=== PATIENT | male | born 1950 | race Caucasian/White ===

== ENCOUNTER → 2023-11-02 | Outpatient (CLI) | payer MEDICARE ==
--- NOTE | 2023-11-02 12:09 | FL ---
Exam Date: 11/02/2023 12:05 PM. Modified barium swallow for dysphagia. Consistencies administered: Various consistency of barium. Fluoro time: 2.34 minutes No images were sent to PACS. Please see speech pathology report. DAP: Not reported mGym2 Gycm2
--- NOTE | 2023-11-02 16:27 | XR ---
EXAMINATION TYPE: XR chest 2V DATE OF EXAM: 11/02/2023 COMPARISON: None INDICATION: Cough TECHNIQUE: Frontal and lateral views of the chest are obtained. FINDINGS: The heart size is normal. The pulmonary vasculature is normal. The lungs are clear. IMPRESSION: 1. No acute pulmonary process.
== END | disposition home or self-care (01) ==
LOC: RADFLMAIN 11:07
PROVIDERS: ATTEND Family Medicine
DX: R05.9 Cough, unspecified (principal); R13.10 Dysphagia, unspecified
CPT/HCPCS: 71046; 74230

== ENCOUNTER → 2023-12-08 | Outpatient (CLI) | payer MEDICARE ==
--- NOTE | 2023-12-21 13:39 | CT ---
EXAMINATION TYPE: CT sinus wo con CT DLP: 673.2 mGycm, Automated exposure control for dose reduction was used. DATE OF EXAM: 12/08/2023 4:45 PM COMPARISON: None. CLINICAL INDICATION:Male, 73 years old with history of J32.9 CHRONIC SINUSITIS, UNSPECIFIED; , chroni c sinusitis with headaches TECHNIQUE: Multiple thin axial images were obtained through the paranasal sinuses without the use of IV contrast. Additional coronal and sagittal reformatted images were submitted for evaluation. Contrast used: none Oral contrast used: none FINDINGS: Frontal sinuses: Normally developed with mucosal thickening. Frontal Recess: Opacified Maxillary Sinuses: Normally developed with no mucosal thickening. Maxillary Infundibula([facility]): Opacified left patent right, No Bekah cells identified. Ethmoid sinuses: Normally developed with mucosal thickening of the anterior and posterior ethmoid air cells bilaterally.. Ethmoidal notch: Protected and abutting the lateral lamina. Sphenoid sinuses: Normally developed and aerated. There is sellar sphenoid sinus pneumatization witho ut evidence of dehiscence. No dehiscence of carotid canal. No evidence of optic nerve dehiscence wit hin the sphenoid sinus. No evidence of Onodi cells. Sphenoethmoidal recesses: Opacified. Nasal septum: Deviated leftward mild osseous spurring contacts the left inferior turbinate.. Nasal Turbinates: Mucosal thickening of the turbinates. Mastoid air cells & middle ears: The air cells are clear. The middle ears are grossly unremarkable. Modified Soft tissues & Brain: Partially seen without gross abnormality. Globes are intact. Other: Cribriform plate demonstrates symmetric Keros classification type 2 cribriform plate. No evidence of bony dehiscence of skull base. Lamina papyracea is intact without evidence of remote orbital fracture or orbital prolapse into the e thmoid sinus. IMPRESSION: 1. Moderate to severe paranasal sinus disease. 2. The ostiomeatal unit on the left is opacified and patent on the right. The Frontonasal recesses ar e opacified bilaterally. The sphenoethmoidal recesses are opacified.
== END | disposition home or self-care (01) ==
LOC: RADCTMAIN 15:29
PROVIDERS: ATTEND Family Medicine
DX: J32.9 Chronic sinusitis, unspecified (principal)
CPT/HCPCS: 70486

== ENCOUNTER → 2024-07-13 | Outpatient (CLI) | payer MEDICARE ==
--- NOTE | 2024-07-15 13:02 | PE ---
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 Images are reviewed on the computer in the coronal, axial, and sagittal planes. Reconstructed rotating images are created on independent workstation and reviewed on the computer. A non-contrast CT is performed in conjunction with the PET scan. Glucose level 225 mg/dL CT DLP: 767 mGycm, Automated exposure control for dose reduction was used. COMPARISON: CT outside CTs, PET/CT 02/27/2024, MRI: 03/04/2024 FINDINGS: Mediastinal SUV mean is 3.3. Hepatic parenchyma SUV mean is 3.8. SKULL BASE AND NECK: Suspicious uptake identified examples include: Parapharyngeal mass measuring at least 28 x 22 mm Max SUV 5.2 previously 14.1 more inferior lymph nod e not well appreciated possibly secondary to positive response of therapy or elevated blood glucose l evel. CHEST, MEDIASTINUM, AND HILAR REGION: Left upper lobe pulmonary nodule next SUV 2.6 Previously 9.3 Measuring 8 mm ABDOMEN AND PELVIS: No suspicious radiotracer activity. MUSCULOSKELETAL STRUCTURES: No suspicious radiotracer activity. OTHER CT: Atherosclerosis of the coronary arteries. Scattered colonic diverticula. Right hip arthropl asty appears intact. Mild degeneration changes left hip. Right simple appearing probable renal cyst. PEG tube with tube terminating in the gastric lumen. IMPRESSION: Elevated blood glucose levels limits evaluation and may artificially lower FDG activity values. * Overall findings suggest positive response to therapy however elevated blood glucose level artific ially lowers FDG activity. * Parapharyngeal mass with metabolic has decreased from prior which could be due to elevated blood g lucose levels. Left neck lymph node seen on prior more inferiorly not well appreciated. * Left upper lobe pulmonary nodule now with decreased metabolic activity suggesting positive respons e to therapy. [facility], , 07/15/2024 12:59 PM
== END | disposition home or self-care (01) ==
LOC: RADPETMAIN 12:22
PROVIDERS: ATTEND Internal Medicine Hematology & Oncology
DX: C76.0 Malignant neoplasm of head, face and neck (principal); R73.9 Hyperglycemia, unspecified; R91.1 Solitary pulmonary nodule; I25.10 Atherosclerotic heart disease of native coronary artery without angina pectoris; K57.30 Diverticulosis of large intestine without perforation or abscess without bleeding
CPT/HCPCS: 78815; A9552

== ENCOUNTER 2024-10-12 18:23 | Inpatient (IN) | payer MEDICARE ==
--- NOTE | 2024-10-12 19:22 | ED ---
General Adult HPI - General Chief complaint: Weakness Stated complaint: Irreg Labs Time Seen by Provider: 10/12/24 18:52 Source: patient Mode of arrival: wheelchair Limitations: no limitations - History of Present Illness Initial comments: Patient is a 74-year-old female past medical history of neck cancer status post chemotherapy presenting today for generalized weakness and confusion. Patient's states that he was released from [facility] about a month and a half ago and since then he has become progressively weaker. During hospitali zation he had a PEG tube placed. She states over the last 2 to 3 days he has had progressively worsening weakness and confusion. He patient is usually oriented x 2-3 however is currently oriented x 1. She states that whenever she has some question he will just stare at her and she asked her peers on multiple times to get any type of answer. She denies that he has had any recent falls but though states he is more weak than normal, usually he was able to ambulate without a walker without issue however has become weak and stumbling even with his walker. He has not had any fevers, vomiting, chest pain, shortness of breath, diarrhea, melena, hematochezia or complaints of abdominal pain. He is currently on Eliquis due to history A-fib. - Related Data Home Medications Medication Instructions Recorded Confirmed Apixaban [Eliquis] 5 mg PEG/G-TUBE BID 07/21/24 10/12/24 Atorvastatin [Lipitor] 20 mg PEG/G-TUBE HS 07/21/24 10/12/24 HYDROcodone/APAP 10-325MG [[place] 1 tab PEG/G-TUBE QID PRN 07/21/24 10/12/24 10-325] Esomeprazole Magnesium [NexIUM] 20 mg PEG/G-TUBE BID PRN 10/12/24 10/12/24 Furosemide [Lasix] 40 mg PEG/G-TUBE DAILY PRN 10/12/24 10/12/24 Metoprolol Tartrate [Lopressor] 12.5 mg PEG/G-TUBE BID 10/12/24 10/12/24 Ondansetron Odt [Zofran Odt] 8 mg PEG/G-TUBE Q8H PRN 10/12/24 10/12/24 Potassium Chloride Oral Liquid 40 meq PEG/G-TUBE DAILY 10/12/24 10/12/24 Allergies Allergy/AdvReac Type Severity Reaction Status Date / Time Mushroom Allergy Unknown Verified 10/12/24 19:58 mushroom Allergy Unknown Verified 10/12/24 19:58 Review of Systems ROS Statement: Those systems with pertinent positive or pertinent negative responses have been documented in the HPI. ROS Other: All systems not noted in ROS Statement are negative. Limitations: ROS unobtainable due to patients medical condition Past Medical History Past Medical History: Atrial Fibrillation, Cancer, Diabetes Mellitus, Hyperlipidemia, Myocardial Infarction (GA) Additional Past Medical History / Comment(s): Spine CA C1/C2, CVA, Last Myocardial Infarction Date:: 2010 History of Any Multi-Drug Resistant Organisms: None Reported Past Surgical History: Joint Replacement Additional Past Surgical History / Comment(s): Peg tube, Past Anesthesia/Blood Transfusion Reactions: No Reported Reaction Past Psychological History: No Psychological Hx Reported Smoking Status: Never smoker Past Alcohol Use History: None Reported Past Drug Use History: None Reported General Exam - General Exam Comments Initial Comments: PE: CONSTITUTIONAL: [no apparent distress, ill-appearing, nontoxic] SKIN: [warm, dry, no jaundice, hives or petechiae however generalized pallor] EYES:[ pupils are equally round, extraocular movements intact without nystagmus, clear conjunctiva, mild scleral icterus] HENT: [normocephalic, atraumatic, dry mucus membranes, oropharynx clear without exudates] NECK: , [Full range of motion, normal appearance] PULMONARY: [Scant crackles right lower lung field otherwise clear to auscultation without wheezes, rhonchi, or rales, normal excursion, no accessory muscle use and no stridor] CARDIOVASCULAR:[Regular rate and rhythm, tachycardia No appreciated murmurs, rubs or gallops. Strong radial pulses with intact distal perfusion. No lower extremity edema] GASTROINTESTINAL: [soft, active bowel sounds throughout, non-tender, non- distended, no palpable masses, no rebound or guarding. No hepatosplenomegaly] GENITOURINARY: MUSCULOSKELETAL: [Extremities have no gross deformity, no edema, redness, or swelling. N] NEUROLOGIC: [_a/o x 1, GCS 14, confused mentation and speech. Falls asleep easily during conversation moves all extremities x 4 without motor or sensory deficit] Limitations: no limitations Course Vital Signs 10/12/24 10/12/2425 18:30 19:33 19:46 Temperature 97.7 F Pulse Rate 132 H 112 H 105 H Respiratory 18 24 22 Rate Blood Pressure 100/68 99/70 113/61 O2 Sat by Pulse 92 L 97 97 Oximetry 10/12/24 10/12/24 10/12/24 20:00 21:02 22:02 Temperature Pulse Rate 106 H 109 H 105 H Respiratory 20 18 18 Rate Blood Pressure 119/59 99/62 99/81 O2 Sat by Pulse 94 L Oximetry 10/12/24 10/12/24 10/13/24 22:56 23:44 00:15 Temperature Pulse Rate 105 H 102 H 107 H Respiratory 20 18 18 Rate Blood Pressure 106/84 130/72 118/62 O2 Sat by Pulse 94 L 96 95 Oximetry 10/13/24 10/13/24 10/13/24 03:10 06:41 07:06 Temperature 97.7 F Pulse Rate 95 102 H 101 H Respiratory 18 18 18 Rate Blood Pressure 112/81 118/72 112/56 O2 Sat by Pulse 95 98 95 Oximetry 10/13/24 10/13/24 10/13/24 07:15 08:36 10:40 Temperature 98.2 F 98.3 F Pulse Rate 117 H 94 90 Respiratory 20 18 22 Rate Blood Pressure 136/87 111/78 108/62 O2 Sat by Pulse 95 99 92 L Oximetry 10/13/24 10:56 Temperature Pulse Rate 76 Respiratory Rate Blood Pressure O2 Sat by Pulse 95 Oximetry EKG Findings - EKG Comments: EKG Findings:: atrial fibrillation with RVR, rate 120 bpm QT/QTc within normal limits, borderline right axis deviation, no ST elevations or depressions Medical Decision Making - Medical Decision Making Was pt. sent in by a medical professional or institution (, PA, BIOFUELS MANAGER, urgent care, hospital, or [place] health care facility...) When possible be specific @ -No Did you speak to anyone other than the patient for history (EMS, parent, family, police, friend...)? What history was obtained from this source Spoke with patient's who provided history, stating pt has become progressively weaker and more confused x 2-3 days, recent swallow study and scope with ENT Did you review nursing and triage notes (agree or disagree)? Why? @ -I reviewed nursing and triage notes Were old charts reviewed (outside hosp., previous admission, EMS record, old EKG, old radiological studies, urgent care reports/EKG's, [place] health care facility records)? Report findings @ -Medical records reviewed Differential Diagnosis (chest pain, altered mental status, abdominal pain women, abdominal pain men, vaginal bleeding, weakness, fever, dyspnea, syncope, headache, dizziness, GI bleed, back pain, seizure, CVA, palpatations, mental health, musculoskeletal)? @Differential Weakness: Hypoglycemia, shock, sepsis, hyponatremia, anemia, infection, GA, ETOH, adverse medicine reaction, overdose, stroke, this is not meant to be an all-inclusive list. Differential Altered Mental Status: Hypoglycemia, DKA, hypercapnia, ETOH, overdose, CO poisoning, trauma, myxedema coma, HTN encephalopathy, infection, encephalitis, psychosis, intercranial hemorrhage, hepatic encephalopathy, meningitis, CVA, this is not meant to be an all-inclusive list EKG interpreted by me (3pts min.). @ -As above X-rays interpreted by me (1pt min.). @ Personally reviewed x-ray, notes new infiltrate in the right infrahilar region, radiologist describes nodular infiltrate in the left suprahilar region and right infrahilar region which may reflect underlying developing pneumonia CT interpreted by me (1pt min.). @ I Personally reviewed CT brain I see no evidence of hemorrhage, or well- circumscribed mass, though radiologist does note interval decreased attenuation within the left cerebellar hemisphere, notes that could reflect ischemic insult versus underlying lesion MRI recommended U/S interpreted by me (1pt. min.). @ -None done What testing was considered but not performed or refused? (CT, X-rays, U/S, labs)? Why? @ -None What meds were considered but not given or refused? Why? @ -None Did you discuss the management of the patient with other professionals (professionals i.e. , PA, BIOFUELS MANAGER, lab, RT, psych nurse, social worker psychiatric, shirt hemmer, teacher, chief scientific officer, case assistant)? Give summary @ -No Was smoking cessation discussed for >3mins.? @ -No Was critical care preformed (if so, how long)? @Yes 35 minutes Were there social determinants of health that impacted care today? How? (Homelessness, low income, unemployed, alcoholism, drug addiction, transportation, low edu. Level, literacy, decrease access to med. care, nursing home, rehab)? @ -No Was there de-escalation of care discussed even if they declined (Discuss DNR or withdrawal of care, Hospice)? @ -No What co-morbidities impacted this encounter? (DM, HTN, Smoking, COPD, CAD, Cancer, CVA, ARF, Chemo, Hep., AIDS, mental health diagnosis, sleep apnea, morbid obesity)? @CAD, cancer, diabetes, atrial fibrillation Was patient admitted / discharged? Hospital course, mention meds given and rou te, prescriptions, significant lab abnormalities, going to OR and other pertinent info. @Admission- patient is a pleasant 74-year-old gentleman presenting with his today for altered mental status and generalized weakness x 2 to 3 days. Patient in A-fib with RVR on arrival. Ill appearing, falls asleep quickly during conversation, oriented x2. No focal neurologic deficits. Patient was given Ca rdizem bolus and is on a Cardizem infusion. Rate largely remains below 110 bpm, will continue on Cardizem infusion. Labs are significant for sodium of 126, chest x-ray showed potential early bilateral pneumonia. I was also updated by RN that while ambulating patient's pulse ox were down to 76% so he was placed on oxygen, nasal cannula 2 L. Updated patient and to findings thus far and anticipated admission. Patient's notes that she he was seen at the ENT 3 days ago and though he is not supposed to be taking anything except ice chips by mouth, he was given applesauce to swallow and had a scope done while there and she wonders if the pneumonia may be secondary to aspiration. Patient will be treated with Zosyn and admitted for further evaluation. Of note BNP ~1800. Suspect hypervolemic hyponatremia. Normal saline infusion was given initially for ~4 hours so received approx 500 cc NS, but this will be discontinued due to elevated BNP. Case discussed with Darci WILDE who can accepted patient for admission. Undiagnosed new problem with uncertain prognosis? @ -No Drug Therapy requiring intensive monitoring for toxicity (Heparin, Nitro, Insulin, Cardizem)? @ -No Were any procedures done? @ -No Diagnosis/symptom? @A-fib with RVR, bilateral pneumonia, acute metabolic encephalopathy, hyponatremia Acute, or Chronic, or Acute on Chronic? Acute Uncomplicated (without systemic symptoms) or Complicated (systemic symptoms)? @Complicated Side effects of treatment? @ -No Exacerbation, Progression, or Severe Exacerbation? @ -No Poses a threat to life or bodily function? How? (Chest pain, [place], GA, pneumonia, PE, COPD, DKA, ARF, appy, cholecystitis, CVA, Diverticulitis, Homicidal, Suicidal, threat to staff... and all critical care pts) @Yes - Lab Data Result diagrams: 10/17/24 06:47 10/17/24 06:47 Lab Results 10/12/24 10/12/24 10/12/24 Range/Units 19:25 19:25 19:25 WBC 9.43 (4.50-10.00) 10*3/uL RBC 3.10 L (4.40-5.60) 10*6/uL Hgb 10.7 L (13.0-17.0) g/dL Hct 30.7 L (39.6-50.0) % MCV 99.0 H (80.0-97.0) fL MCH 34.5 H (27.0-32.0) pg MCHC 34.9 (32.0-37.0) g/dL Plt Count 271 (140-440) 10*3/uL MPV 9.5 (9.5-12.2) fL Immature Gran % (Auto) 0.3 % Neutrophils % 40.6 % Lymphocytes % 24.2 % Monocytes % 8.3 % Eosinophils % 26.1 % Basophils % 0.5 % Immature Gran # 0.03 (0.00-0.04) 10*3/uL Neutrophils # 3.83 (1.80-7.70) 10*3/uL Lymphocytes # 2.28 (0.90-5.00) 10*3/uL Monocytes # 0.78 (0.20-1.00) 10*3/uL Eosinophils # 2.46 H (0.04-0.35) 10*3/uL Basophils # 0.05 (0.00-0.10) 10*3/uL Manual Slide Review Performed PT 12.4 (10.0-12.5) sec INR 1.1 (<1.2) APTT 28.5 (22.0-30.0) sec VBG pH (7.31-7.41) VBG pCO2 (37-51) mmHg VBG HCO3 (24-28) mmol/L Sodium 126 L (137-145) mmol/L Potassium 5.2 H (3.5-5.1) mmol/L Chloride 90 L (98-107) mmol/L Carbon Dioxide 26 (22-30) mmol/L Anion Gap 10 mmol/L BUN 19 (9-20) mg/dL Creatinine 0.53 L (0.66-1.25) mg/dL Est GFR (CKD-EPI)AfAm >90 (>60 ml/min/1.73 sqM) Est GFR (CKD-EPI)NonAf >90 (>60 ml/min/1.73 sqM) Glucose 149 H (74-99) mg/dL POC Glucose (mg/dL) (70-110) mg/dL POC Glu Rn Ent ID Plasma Lactic Acid Jarod (0.7-2.0) mmol/L Calcium 9.0 (8.4-10.2) mg/dL Magnesium 1.7 (1.6-2.3) mg/dL Total Bilirubin 0.7 (0.2-1.3) mg/dL AST 35 (17-59) U/L ALT 13 (4-49) U/L Alkaline Phosphatase 129 H (38-126) U/L Ammonia (<30) umol/L Troponin I (0.000-0.034) ng/mL C-Reactive Protein (<1.0) mg/dL NT-Pro-B Natriuret Pep 1860 pg/mL Total Protein 6.0 L (6.3-8.2) g/dL Albumin 3.3 L (3.5-5.0) g/dL Procalcitonin (0.02-0.50) ng/mL TSH 5.270 H (0.465-4.680) mIU/L Free T4 1.31 (0.78-2.19) ng/dL Urine Color Urine Appearance (Clear) Urine pH (5.0-8.0) Ur Specific [place] (1.001-1.035) Urine Protein (Negative) Urine Glucose (UA) (Negative) Urine Ketones (Negative) Urine Blood (Negative) Urine Nitrite (Negative) Urine Bilirubin (Negative) Urine Urobilinogen (<2.0) mg/dL Ur Leukocyte Esterase (Negative) Urine Osmolality (400-1100) mOsm/kg Ur Random Sodium (40-220) mmol/L Influenza Type A (PCR) (Not Detectd) Influenza Type B (PCR) (Not Detectd) Urine Legionella Ag (Negative) RSV (PCR) (Not Detectd) SARS-CoV-2 (PCR) (Not Detectd) 10/12/24 10/12/24 10/12/24 Range/Units 19:25 19:25 19:30 WBC (4.50-10.00) 10*3/uL RBC (4.40-5.60) 10*6/uL Hgb (13.0-17.0) g/dL Hct (39.6-50.0) % MCV (80.0-97.0) fL MCH (27.0-32.0) pg MCHC (32.0-37.0) g/dL Plt Count (140-440) 10*3/uL MPV (9.5-12.2) fL Immature Gran % (Auto) % Neutrophils % % Lymphocytes % % Monocytes % % Eosinophils % % Basophils % % Immature Gran # (0.00-0.04) 10*3/uL Neutrophils # (1.80-7.70) 10*3/uL Lymphocytes # (0.90-5.00) 10*3/uL Monocytes # (0.20-1.00) 10*3/uL Eosinophils # (0.04-0.35) 10*3/uL Basophils # (0.00-0.10) 10*3/uL Manual Slide Review PT (10.0-12.5) sec INR (<1.2) APTT (22.0-30.0) sec VBG pH (7.31-7.41) VBG pCO2 (37-51) mmHg VBG HCO3 (24-28) mmol/L Sodium (137-145) mmol/L Potassium (3.5-5.1) mmol/L Chloride (98-107) mmol/L Carbon Dioxide (22-30) mmol/L Anion Gap mmol/L BUN (9-20) mg/dL Creatinine (0.66-1.25) mg/dL Est GFR (CKD-EPI)AfAm (>60 ml/min/1.73 sqM) Est GFR (CKD-EPI)NonAf (>60 ml/min/1.73 sqM) Glucose (74-99) mg/dL POC Glucose (mg/dL) 141 H (70-110) mg/dL POC Glu Rn Ent ID Clune Armando Plasma Lactic Acid Jarod 2.0 (0.7-2.0) mmol/L Calcium (8.4-10.2) mg/dL Magnesium (1.6-2.3) mg/dL Total Bilirubin (0.2-1.3) mg/dL AST (17-59) U/L ALT (4-49) U/L Alkaline Phosphatase (38-126) U/L Ammonia <9 (<30) umol/L Troponin I <0.012 (0.000-0.034) ng/mL C-Reactive Protein (<1.0) mg/dL NT-Pro-B Natriuret Pep pg/mL Total Protein (6.3-8.2) g/dL Albumin (3.5-5.0) g/dL Procalcitonin (0.02-0.50) ng/mL TSH (0.465-4.680) mIU/L Free T4 (0.78-2.19) ng/dL Urine Color Urine Appearance (Clear) Urine pH (5.0-8.0) Ur Specific [place] (1.001-1.035) Urine Protein (Negative) Urine Glucose (UA) (Negative) Urine Ketones (Negative) Urine Blood (Negative) Urine Nitrite (Negative) Urine Bilirubin (Negative) Urine Urobilinogen (<2.0) mg/dL Ur Leukocyte Esterase (Negative) Urine Osmolality (400-1100) mOsm/kg Ur Random Sodium (40-220) mmol/L Influenza Type A (PCR) (Not Detectd) Influenza Type B (PCR) (Not Detectd) Urine Legionella Ag (Negative) RSV (PCR) (Not Detectd) SARS-CoV-2 (PCR) (Not Detectd) 10/12/24 10/12/24 10/12/24 Range/Units 19:37 19:45 21:46 WBC (4.50-10.00) 10*3/uL RBC (4.40-5.60) 10*6/uL Hgb (13.0-17.0) g/dL Hct (39.6-50.0) % MCV (80.0-97.0) fL MCH (27.0-32.0) pg MCHC (32.0-37.0) g/dL Plt Count (140-440) 10*3/uL MPV (9.5-12.2) fL Immature Gran % (Auto) % Neutrophils % % Lymphocytes % % Monocytes % % Eosinophils % % Basophils % % Immature Gran # (0.00-0.04) 10*3/uL Neutrophils # (1.80-7.70) 10*3/uL Lymphocytes # (0.90-5.00) 10*3/uL Monocytes # (0.20-1.00) 10*3/uL Eosinophils # (0.04-0.35) 10*3/uL Basophils # (0.00-0.10) 10*3/uL Manual Slide Review PT (10.0-12.5) sec INR (<1.2) APTT (22.0-30.0) sec VBG pH 7.42 H (7.31-7.41) VBG pCO2 48 (37-51) mmHg VBG HCO3 31 H (24-28) mmol/L Sodium (137-145) mmol/L Potassium (3.5-5.1) mmol/L Chloride (98-107) mmol/L Carbon Dioxide (22-30) mmol/L Anion Gap mmol/L BUN (9-20) mg/dL Creatinine (0.66-1.25) mg/dL Est GFR (CKD-EPI)AfAm (>60 ml/min/1.73 sqM) Est GFR (CKD-EPI)NonAf (>60 ml/min/1.73 sqM) Glucose (74-99) mg/dL POC Glucose (mg/dL) (70-110) mg/dL POC Glu Rn Ent ID Plasma Lactic Acid Jarod (0.7-2.0) mmol/L Calcium (8.4-10.2) mg/dL Magnesium (1.6-2.3) mg/dL Total Bilirubin (0.2-1.3) mg/dL AST (17-59) U/L ALT (4-49) U/L Alkaline Phosphatase (38-126) U/L Ammonia (<30) umol/L Troponin I (0.000-0.034) ng/mL C-Reactive Protein (<1.0) mg/dL NT-Pro-B Natriuret Pep pg/mL Total Protein (6.3-8.2) g/dL Albumin (3.5-5.0) g/dL Procalcitonin (0.02-0.50) ng/mL TSH (0.465-4.680) mIU/L Free T4 (0.78-2.19) ng/dL Urine Color Yellow Urine Appearance Clear (Clear) Urine pH 7.5 (5.0-8.0) Ur Specific [place] 1.021 (1.001-1.035) Urine Protein Trace H (Negative) Urine Glucose (UA) Negative (Negative) Urine Ketones Negative (Negative) Urine Blood Negative (Negative) Urine Nitrite Negative (Negative) Urine Bilirubin Negative (Negative) Urine Urobilinogen 2.0 (<2.0) mg/dL Ur Leukocyte Esterase Negative (Negative) Urine Osmolality (400-1100) mOsm/kg Ur Random Sodium (40-220) mmol/L Influenza Type A (PCR) Not Detected (Not Detectd) Influenza Type B (PCR) Not Detected (Not Detectd) Urine Legionella Ag (Negative) RSV (PCR) Not Detected (Not Detectd) SARS-CoV-2 (PCR) Not Detected (Not Detectd) 10/12/24 10/12/24 10/12/24 Range/Units 21:46 21:46 21:46 WBC (4.50-10.00) 10*3/uL RBC (4.40-5.60) 10*6/uL Hgb (13.0-17.0) g/dL Hct (39.6-50.0) % MCV (80.0-97.0) fL MCH (27.0-32.0) pg MCHC (32.0-37.0) g/dL Plt Count (140-440) 10*3/uL MPV (9.5-12.2) fL Immature Gran % (Auto) % Neutrophils % % Lymphocytes % % Monocytes % % Eosinophils % % Basophils % % Immature Gran # (0.00-0.04) 10*3/uL Neutrophils # (1.80-7.70) 10*3/uL Lymphocytes # (0.90-5.00) 10*3/uL Monocytes # (0.20-1.00) 10*3/uL Eosinophils # (0.04-0.35) 10*3/uL Basophils # (0.00-0.10) 10*3/uL Manual Slide Review PT (10.0-12.5) sec INR (<1.2) APTT (22.0-30.0) sec VBG pH (7.31-7.41) VBG pCO2 (37-51) mmHg VBG HCO3 (24-28) mmol/L Sodium (137-145) mmol/L Potassium (3.5-5.1) mmol/L Chloride (98-107) mmol/L Carbon Dioxide (22-30) mmol/L Anion Gap mmol/L BUN (9-20) mg/dL Creatinine (0.66-1.25) mg/dL Est GFR (CKD-EPI)AfAm (>60 ml/min/1.73 sqM) Est GFR (CKD-EPI)NonAf (>60 ml/min/1.73 sqM) Glucose (74-99) mg/dL POC Glucose (mg/dL) (70-110) mg/dL POC Glu Rn Ent ID Plasma Lactic Acid Jarod (0.7-2.0) mmol/L Calcium (8.4-10.2) mg/dL Magnesium (1.6-2.3) mg/dL Total Bilirubin (0.2-1.3) mg/dL AST (17-59) U/L ALT (4-49) U/L Alkaline Phosphatase (38-126) U/L Ammonia (<30) umol/L Troponin I (0.000-0.034) ng/mL C-Reactive Protein (<1.0) mg/dL NT-Pro-B Natriuret Pep pg/mL Total Protein (6.3-8.2) g/dL Albumin (3.5-5.0) g/dL Procalcitonin (0.02-0.50) ng/mL TSH (0.465-4.680) mIU/L Free T4 (0.78-2.19) ng/dL Urine Color Urine Appearance (Clear) Urine pH (5.0-8.0) Ur Specific [place] (1.001-1.035) Urine Protein (Negative) Urine Glucose (UA) (Negative) Urine Ketones (Negative) Urine Blood (Negative) Urine Nitrite (Negative) Urine Bilirubin (Negative) Urine Urobilinogen (<2.0) mg/dL Ur Leukocyte Esterase (Negative) Urine Osmolality 532 (400-1100) mOsm/kg Ur Random Sodium 25 L (40-220) mmol/L Influenza Type A (PCR) (Not Detectd) Influenza Type B (PCR) (Not Detectd) Urine Legionella Ag Negative (Negative) RSV (PCR) (Not Detectd) SARS-CoV-2 (PCR) (Not Detectd) 10/12/24 10/12/24 Range/Units 22:36 22:36 WBC (4.50-10.00) 10*3/uL RBC (4.40-5.60) 10*6/uL Hgb (13.0-17.0) g/dL Hct (39.6-50.0) % MCV (80.0-97.0) fL MCH (27.0-32.0) pg MCHC (32.0-37.0) g/dL Plt Count (140-440) 10*3/uL MPV (9.5-12.2) fL Immature Gran % (Auto) % Neutrophils % % Lymphocytes % % Monocytes % % Eosinophils % % Basophils % % Immature Gran # (0.00-0.04) 10*3/uL Neutrophils # (1.80-7.70) 10*3/uL Lymphocytes # (0.90-5.00) 10*3/uL Monocytes # (0.20-1.00) 10*3/uL Eosinophils # (0.04-0.35) 10*3/uL Basophils # (0.00-0.10) 10*3/uL Manual Slide Review PT (10.0-12.5) sec INR (<1.2) APTT (22.0-30.0) sec VBG pH (7.31-7.41) VBG pCO2 (37-51) mmHg VBG HCO3 (24-28) mmol/L Sodium (137-145) mmol/L Potassium (3.5-5.1) mmol/L Chloride (98-107) mmol/L Carbon Dioxide (22-30) mmol/L Anion Gap mmol/L BUN (9-20) mg/dL Creatinine (0.66-1.25) mg/dL Est GFR (CKD-EPI)AfAm (>60 ml/min/1.73 sqM) Est GFR (CKD-EPI)NonAf (>60 ml/min/1.73 sqM) Glucose (74-99) mg/dL POC Glucose (mg/dL) (70-110) mg/dL POC Glu Rn Ent ID Plasma Lactic Acid Jarod (0.7-2.0) mmol/L Calcium (8.4-10.2) mg/dL Magnesium (1.6-2.3) mg/dL Total Bilirubin (0.2-1.3) mg/dL AST (17-59) U/L ALT (4-49) U/L Alkaline Phosphatase (38-126) U/L Ammonia (<30) umol/L Troponin I (0.000-0.034) ng/mL C-Reactive Protein 7.5 H (<1.0) mg/dL NT-Pro-B Natriuret Pep pg/mL Total Protein (6.3-8.2) g/dL Albumin (3.5-5.0) g/dL Procalcitonin <0.20 (0.02-0.50) ng/mL TSH (0.465-4.680) mIU/L Free T4 (0.78-2.19) ng/dL Urine Color Urine Appearance (Clear) Urine pH (5.0-8.0) Ur Specific [place] (1.001-1.035) Urine Protein (Negative) Urine Glucose (UA) (Negative) Urine Ketones (Negative) Urine Blood (Negative) Urine Nitrite (Negative) Urine Bilirubin (Negative) Urine Urobilinogen (<2.0) mg/dL Ur Leukocyte Esterase (Negative) Urine Osmolality (400-1100) mOsm/kg Ur Random Sodium (40-220) mmol/L Influenza Type A (PCR) (Not Detectd) Influenza Type B (PCR) (Not Detectd) Urine Legionella Ag (Negative) RSV (PCR) (Not Detectd) SARS-CoV-2 (PCR) (Not Detectd) Disposition Clinical Impression: Bilateral pneumonia, Acute metabolic encephalopathy, Hyponatremia, Atrial fibrillation with RVR Disposition: ADMITTED IP TO THIS HOSP Condition: Stable
[2024-10-12] MEDS: LACTATED RINGERS 1,000 ML IV ONE (19:31)
[2024-10-12 19:37] LABS: Glucose,Whole Blood 141 mg/dL (70-110)
[2024-10-12 19:44] LABS: INR 1.1 (<1.2); Partial Thromboplastin Time 28.5 sec (22.0-30.0); Prothrombin Time 12.4 sec (10.0-12.5)
[2024-10-12] MEDS: DILTIAZEM 125 MG in DEXTROSE 5% IN WATER 100 ML IV SCH (19:44)
[2024-10-12] MEDS: DILTIAZEM 5 MG/ML 5 ML VIAL IVP STA (19:45)
[2024-10-12 19:52] LABS: ALT 13 U/L (4-49); African American GFR (CKD) >90 (>60 ml/min/1.73 sqM); Albumin 3.3 g/dL (3.5-5.0); Anion Gap 10 mmol/L; Blood Urea Nitrogen 19 mg/dL (9-20); Carbon Dioxide 26 mmol/L (22-30); Chloride 90 mmol/L (98-107); Glucose 149 mg/dL (74-99); Non-African American GFR(CKD) >90 (>60 ml/min/1.73 sqM); Sodium 126 mmol/L (137-145); Total Bilirubin 0.7 mg/dL (0.2-1.3)
[2024-10-12 19:53] LABS: HGB 10.7 g/dL (13.0-17.0); WBC 9.43 10*3/uL (4.50-10.00)
[2024-10-12 19:54] LABS: Basophils # (A) 0.05 10*3/uL (0.00-0.10); Basophils % (A) 0.5 %; Eosinophils # (A) 2.46 10*3/uL (0.04-0.35); Eosinophils % (A) 26.1 %; HCT 30.7 % (39.6-50.0); Lymphocytes # (A) 2.28 10*3/uL (0.90-5.00); Lymphocytes % (A) 24.2 %; MCH 34.5 pg (27.0-32.0); MCHC 34.9 g/dL (32.0-37.0); Mean Platelet Volume 9.5 fL (9.5-12.2); Monocytes # (A) 0.78 10*3/uL (0.20-1.00); Monocytes % (A) 8.3 %; Neutrophils # (A) 3.83 10*3/uL (1.80-7.70); Neutrophils % (A) 40.6 %; Platelet Count 271 10*3/uL (140-440); RDW 15.5 % (11.5-14.5)
[2024-10-12 20:02] LABS: NT-Pro-B-Type Natriuretic Pept 1860 pg/mL
[2024-10-12 20:06] LABS: VBG PH 7.42 (7.31-7.41)
[2024-10-12 20:09] LABS: AST 35 U/L (17-59); Alkaline Phosphatase 129 U/L (38-126); Magnesium 1.7 mg/dL (1.6-2.3); Potassium 5.2 mmol/L (3.5-5.1)
[2024-10-12 20:18] LABS: Influenza A Not Detected (Not Detectd); Influenza B Not Detected (Not Detectd); RSV Not Detected (Not Detectd)
--- NOTE | 2024-10-12 20:22 | CT ---
EXAMINATION TYPE: CT brain wo con DATE OF EXAM: 10/12/2024 COMPARISON: 02/02/2024 CLINICAL INDICATION: Male, 74 years old with history of altered mental status; PHH, AMS. TECHNIQUE: CT scan of the head is performed without contrast. CT DLP: 1127.[address] CTDI: mGy Automated exposure control for dose reduction was used. FINDINGS: There is no acute intracranial hemorrhage or midline shift identified. There is interval decreased attenuation within the left cerebellar hemisphere. This could reflect ischemic insult versu s underlying lesion. MRI of the brain is recommended. There is diffuse ventricular and sulcal promine nce consistent with diffuse age-related cerebral atrophy. There is low-attenuation in the periventri cular white matter consistent with chronic small vessel ischemic change. The globes are intact and t he visualized sinuses are clear. Interval findings of left-sided mastoiditis with opacification eriberto rounding the left ossicular chain. There is extensive pansinusitis and/or polyposis. Underlying infec tion in the left maxillary sinus is difficult to exclude given hyperdense appearance. IMPRESSION: 1.There is interval decreased attenuation within the left cerebellar hemisphere. This could reflect i schemic insult versus underlying lesion. MRI of the brain is recommended. 2. Left-sided KRYSTAL mastoiditis. [facility], , 10/12/2024 8:20 PM
--- NOTE | 2024-10-12 20:23 | XR ---
EXAMINATION TYPE: XR chest 2V DATE OF EXAM: 10/12/2024 8:03 PM COMPARISON: 07/26/2024 CLINICAL INDICATION: Male, 74 years old with history of Weakness: Shortness of breath TECHNIQUE: XR chest 2V views of the chest are obtained. FINDINGS: Scattered senescent parenchymal changes noted. Hyperinflation compatible with COPD. Nodular infiltrate left suprahilar region and right infrahilar region may reflect underlying developi ng pneumonia. Correlate clinically. Studies are recommended. Heart size is stable. Mediastinal structures are stable and grossly unremarkable. No evidence for hilar prominence. Degenerative changes dorsal spine. IMPRESSION: 1. Nodular infiltrate left suprahilar region and right infrahilar region may reflect underlying devel oping pneumonia. Correlate clinically. Studies are recommended. [facility], , 10/12/2024 8:21 PM
[2024-10-12 20:59] LABS: T4, Free (Free Thyroxine) 1.31 ng/dL (0.78-2.19)
[2024-10-12] MEDS: PIPERACILLIN-TAZOBACTAM 3.375 GM in SODIUM CHLORIDE 0.9% 100 ML IVPB STA (21:47)
[2024-10-12] MEDS: SODIUM CHLORIDE 0.9% 1,000 ML IV SCH (21:48)
[2024-10-12 22:08] LABS: Appearance,Urine Clear (Clear); Bilirubin,Urine Negative (Negative); Blood,Urine Negative (Negative); Color,Urine Yellow; Glucose,Urine (UA) Negative (Negative); Ketones,Urine Negative (Negative); Leukocyte Esterase,Urine Negative (Negative); Nitrite,Urine Negative (Negative); PH, Urine 7.5 (5.0-8.0); Protein,Urine Trace (Negative); Specific Gravity,Urine 1.021 (1.001-1.035)
[2024-10-12] MEDS ORDERED: FUROSEMIDE 40 MG TAB PEG/G-TUBE PRN (22:23)
[2024-10-12] MEDS ORDERED: PANTOPRAZOLE SODIUM 40 MG GRANULE PKT NG-TUBE PRN (22:23)
[2024-10-12] MEDS ORDERED: PANTOPRAZOLE SODIUM 40 MG GRANULE PKT PEG/G-TUBE PRN (22:28)
[2024-10-12] MEDS ORDERED: PNEUMONIA PROTOCOL UTILIZED 1 EACH MISC PO PRN (22:34)
[2024-10-12] MEDS: METOPROLOL TARTRATE 12.5 MG TAB PEG/G-TUBE SCH (22:50)
[2024-10-12] MEDS: APIXABAN 5 MG TAB PEG/G-TUBE SCH (22:50)
[2024-10-13 00:19] LABS: Potassium 4.4 mmol/L (3.5-5.1)
[2024-10-13] MEDS: PIPERACILLIN-TAZOBACTAM 3.375 GM in SODIUM CHLORIDE 0.9% 100 ML IVPB SCH (06:35)
[2024-10-13 08:19] LABS: ALT 11 U/L (4-49); AST 29 U/L (17-59); African American GFR (CKD) >90 (>60 ml/min/1.73 sqM); Alkaline Phosphatase 117 U/L (38-126); Anion Gap 7 mmol/L; Blood Urea Nitrogen 17 mg/dL (9-20); Calcium 8.6 mg/dL (8.4-10.2); Carbon Dioxide 26 mmol/L (22-30); Chloride 95 mmol/L (98-107); Glucose 126 mg/dL (74-99); Non-African American GFR(CKD) >90 (>60 ml/min/1.73 sqM); Potassium 4.2 mmol/L (3.5-5.1); Sodium 128 mmol/L (137-145); Total Protein 5.5 g/dL (6.3-8.2)
--- NOTE | 2024-10-13 09:16 | P.NPCON ---
History of Present Illness - Reason for Consult hyponatremia - History of Present Illness Patient is a 74-year-old male with history of coronary artery disease, hypertension, chronic A-fib and history of head and neck cancer maintained on chemotherapy and currently with a PEG tube. Patient is admitted to the hospital with complaints of increased weakness and mental status changes Recently discharged from [facility] and PEG tube was placed at that time No history of fever chills diarrhea or vomiting No history of cough Serum sodium was 126 on admission and improved to 128 today. Patient received IV fluids in the ER. Currently discontinued. Urine osmolality 532 and urine sodium at 25 Past Medical History Past Medical History: Atrial Fibrillation, Cancer, Diabetes Mellitus, Hyperlipidemia, Myocardial Infarction ([place]) Additional Past Medical History / Comment(s): Spine CA C1/C2, CVA, Last Myocardial Infarction Date:: 2010 History of Any Multi-Drug Resistant Organisms: None Reported Past Surgical History: Joint Replacement Additional Past Surgical History / Comment(s): Peg tube, Past Anesthesia/Blood Transfusion Reactions: No Reported Reaction Past Psychological History: No Psychological Hx Reported Smoking Status: Never smoker Past Alcohol Use History: None Reported Past Drug Use History: None Reported Medications and Allergies Home Medications Medication Instructions Recorded Confirmed Type Apixaban [Eliquis] 5 mg PEG/G-TUBE BID 07/21/24 10/12/24 History Atorvastatin [Lipitor] 20 mg PEG/G-TUBE HS 07/21/24 10/12/24 History HYDROcodone/APAP 10-325MG [[place] 1 tab PEG/G-TUBE QID PRN 07/21/24 10/12/24 History 10-325] Esomeprazole Magnesium [NexIUM] 20 mg PEG/G-TUBE BID PRN 10/12/24 10/12/24 History Furosemide [Lasix] 40 mg PEG/G-TUBE DAILY PRN 10/12/24 10/12/24 History Metoprolol Tartrate [Lopressor] 12.5 mg PEG/G-TUBE BID 10/12/24 10/12/24 History Ondansetron Odt [Zofran Odt] 8 mg PEG/G-TUBE Q8H PRN 10/12/24 10/12/24 History Potassium Chloride Oral Liquid 40 meq PEG/G-TUBE DAILY 10/12/24 10/12/24 History Allergies Allergy/AdvReac Type Severity Reaction Status Date / Time Mushroom Allergy Unknown Verified 10/12/24 19:58 mushroom Allergy Unknown Verified 10/12/24 19:58 Physical Exam Vitals: Vital Signs Temp Pulse Resp BP Pulse Ox 10/13/24 08:36 94 18 111/78 99 10/13/24 07:15 98.2 F 117 H 20 136/87 95 10/13/24 07:06 97.7 F 101 H 18 112/56 95 10/13/24 06:41 102 H 18 118/72 98 10/13/24 03:10 95 18 112/81 95 10/13/24 00:15 107 H 18 118/62 95 10/12/24 23:44 102 H 18 130/72 96 10/12/24 22:56 105 H 20 106/84 94 L 10/12/24 22:02 105 H 18 99/81 94 L 10/12/24 21:02 109 H 18 99/62 10/12/24 20:00 106 H 20 119/59 10/12/24 19:46 105 H 22 113/61 97 10/12/24 19:33 112 H 24 99/70 97 10/12/24 18:30 97.7 F 132 H 18 100/68 92 L Intake and Output 10/12/24 10/13/24 10/13/24 22:59 06:59 14:59 Other: Weight 81.193 kg Patient is awake, comfortable, no acute distress Examination of the heart S1 and S2 Examination of the lungs shows bilateral breath sounds are heard Abdomen is soft nontender, PEG tube noted Examination of lower extremity shows no significant edema Results - Lab Results Most recent lab results Calcium 8.6 mg/dL (8.4-10.2) 10/13/24 07:53 Magnesium 1.7 mg/dL (1.6-2.3) 10/12/24 19:25 10/12/24 19:25 10/13/24 07:53 Assessment and Plan Assessment: 1. Hyponatremia, most likely hypovolemic. Improved with IV fluids in the ER. Patient is hemodynamically stable. Lasix will be held. I will continue off of IV fluids and continue with tube feedings with minimum free water. Repeat sodium will be checked at noon. 2. History of head and neck cancer status post chemotherapy, status post PEG tube placement about a month ago 3. Chronic A-fib maintained on Eliquis and Lopressor 4. Coronary artery disease with history of NM Plan: Hold Lasix Resume tube feedings with minimal free water for now. Repeat sodium at noon Repeat labs in a.m. Thank you for the consultation. Will continue to follow the patient with you during his hospitalization.
[2024-10-13 11:19] LABS: Glucose,Whole Blood 132 mg/dL (70-110)
[2024-10-13 16:10] LABS: Glucose,Whole Blood 118 mg/dL (70-110)
[2024-10-13] MEDS: HYDROcodone/APAP 10-325MG 1 EACH TAB PEG/G-TUBE PRN (16:31)
--- NOTE | 2024-10-13 16:47 | P.HPIM ---
History of Present Illness H&P Date: 10/13/24 History of present illness; Patient is a 74-year-old male past medical history of neck cancer status post chemotherapy who presents for generalized weakness and confusion. Confusion has worsened over the past 2 to 3 days he will stare off and needs multiple prompts to answer questions. Patient's states that he was released from [facility] about 1.5 months ago and has since become progressively weaker. During that time he had PEG tube placed. No recent falls. He is on Eliquis for history of A-fib. Absence of fever, chills, chest pain, palpitations, abdominal pain, dysuria. Spoke with the ER physician, patient admission was accepted by internal medicine service for treatment. REVIEW OF SYSTEMS: Pertinent positives and negatives noted in HPI. PHYSICAL EXAMINATION: Vitals reviewed GENERAL: Resting comfortably in bed. EYES: PERRL, no scleral injection or icterus. No vision loss HENT: Normocephalic, atraumatic, hearing grossly intact, moist mucous membranes NECK: No tracheal deviation, full range of motion. CARDIOVASCULAR: S1 and S2 present. Irregular rhythm. PULMONARY: Chest is clear to auscultation, no wheezing, rhonchi, or crackles. ABDOMEN: Soft, nontender, nondistended. No palpable organomegaly. PEG tube. MUSCULOSKELETAL: No apparent joint swelling and deformities. EXTREMITIES: No apparent cyanosis, clubbing. No pedal edema. NEUROLOGICAL: Alert and oriented. 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 SKIN: No apparent rashes. ER FINDINGS: Labs significant for WBC 9.4, hemoglobin 10.7, MCV 99, platelets 271, VBG 7.4, pCO2 48, sodium 126 => 128, potassium 5.2 => 4.2, creatinine 0.53, alkaline phosphatase 129 => 117, troponin<0.012 => 0.015, CRP 7.5, proBNP 1860, TSH 5.27, free T4 1.31 by respiratory panel negative, UA significant for urine osmolality 532, urine sodium 25 EKG independently interpreted showed A-fib with RVR heart rate of 120, QTc 393, no ST segment elevation or depression seen, no T-wave inversions seen. Chest x-ray done interpreted showed nodular infiltrate left suprahilar region and right infrahilar region. CT head independently interpreted showed interval decreased attenuation within the left cerebral hemisphere, could reflect ischemic insult versus underlying lesion. Left-sided otomastoiditis. Assessment and Plan: #Acute encephalopathy, possible ischemic infarct versus lesion #Acute hypoxic respiratory failure, rule out PE vs less likely pneumonia #Generalized weakness #Eosinophila #Otomastoiditis Afebrile, WBC is WNL, Procalcitonin negative. Will discontinue antibiotics for now MRI brain recently completed as outpatient, obtain records D-dimer 2.7, CTA chest ordered Blood, sputum, Legionella culture pending PT OT consulted ID consulted Neurology consulted # A-fib with RVR Continue Eliquis Continue Cardizem infusion Hold home metoprolol Cardiology consulted #Hypovolemic hyponatremia #CHF with systolic dysfunction EF 45 to 50% Hold Lasix Nephrology consulted Chronic Medical Conditions History of neck cancers/p chemotherapy PEG tube placement, dietitian consulted CAD Resume home medications DVT ppx: Lovenox 40 meq daily F: P.o. E: Replete as needed N: Enteral feeding, PEG tube nutrition consulted Anticipated discharge place: Pending clinical course Anticipated discharge time: Pending clinical course Dr. Bob seen patient with resident, present during exam, and agreed with findings. Dictation was produced using [employer] dictation software. Please excuse any grammatical, word or spelling errors. Past Medical History Past Medical History: Atrial Fibrillation, Cancer, Diabetes Mellitus, Hyperlipidemia, Myocardial Infarction ([place]) Additional Past Medical History / Comment(s): Spine CA C1/C2, CVA, Last Myocardial Infarction Date:: 2010 History of Any Multi-Drug Resistant Organisms: None Reported Past Surgical History: Joint Replacement Additional Past Surgical History / Comment(s): Peg tube, Past Anesthesia/Blood Transfusion Reactions: No Reported Reaction Past Psychological History: No Psychological Hx Reported Smoking Status: Never smoker Past Alcohol Use History: None Reported Past Drug Use History: None Reported Medications and Allergies Home Medications Medication Instructions Recorded Confirmed Type Apixaban [Eliquis] 5 mg PEG/G-TUBE BID 07/21/24 10/12/24 History Atorvastatin [Lipitor] 20 mg PEG/G-TUBE HS 07/21/24 10/12/24 History HYDROcodone/APAP 10-325MG [[place] 1 tab PEG/G-TUBE QID PRN 07/21/24 10/12/24 History 10-325] Esomeprazole Magnesium [NexIUM] 20 mg PEG/G-TUBE BID PRN 10/12/24 10/12/24 History Furosemide [Lasix] 40 mg PEG/G-TUBE DAILY PRN 10/12/24 10/12/24 History Metoprolol Tartrate [Lopressor] 12.5 mg PEG/G-TUBE BID 10/12/24 10/12/24 History Ondansetron Odt [Zofran Odt] 8 mg PEG/G-TUBE Q8H PRN 10/12/24 10/12/24 History Potassium Chloride Oral Liquid 40 meq PEG/G-TUBE DAILY 10/12/24 10/12/24 History Allergies Allergy/AdvReac Type Severity Reaction Status Date / Time Mushroom Allergy Unknown Verified 10/12/24 19:58 mushroom Allergy Unknown Verified 10/12/24 19:58 Physical Exam Vitals: Vital Signs Temp Pulse Resp BP Pulse Ox 10/13/24 08:36 94 18 111/78 99 10/13/24 07:15 98.2 F 117 H 20 136/87 95 10/13/24 07:06 97.7 F 101 H 18 112/56 95 10/13/24 06:41 102 H 18 118/72 98 10/13/24 03:10 95 18 112/81 95 10/13/24 00:15 107 H 18 118/62 95 10/12/24 23:44 102 H 18 130/72 96 10/12/24 22:56 105 H 20 106/84 94 L 10/12/24 22:02 105 H 18 99/81 94 L 10/12/24 21:02 109 H 18 99/62 10/12/24 20:00 106 H 20 119/59 10/12/24 19:46 105 H 22 113/61 97 10/12/24 19:33 112 H 24 99/70 97 10/12/24 18:30 97.7 F 132 H 18 100/68 92 L Intake and Output 10/12/24 10/13/24 10/13/24 22:59 06:59 14:59 Other: Weight 81.193 kg Results CBC & Chem 7: 10/12/24 19:25 10/13/24 11:52 Labs: Abnormal Lab Results - Last 24 Hours (Table) 10/12/24 10/12/24 10/12/24 Range/Units 19:25 19:25 19:30 RBC 3.10 L (4.40-5.60) 10*6/uL Hgb 10.7 L (13.0-17.0) g/dL Hct 30.7 L (39.6-50.0) % MCV 99.0 H (80.0-97.0) fL MCH 34.5 H (27.0-32.0) pg Eosinophils # 2.46 H (0.04-0.35) 10*3/uL VBG pH (7.31-7.41) VBG HCO3 (24-28) mmol/L Sodium 126 L (137-145) mmol/L Potassium 5.2 H (3.5-5.1) mmol/L Chloride 90 L (98-107) mmol/L Creatinine 0.53 L (0.66-1.25) mg/dL Glucose 149 H (74-99) mg/dL POC Glucose (mg/dL) 141 H (70-110) mg/dL Alkaline Phosphatase 129 H (38-126) U/L C-Reactive Protein (<1.0) mg/dL Total Protein 6.0 L (6.3-8.2) g/dL Albumin 3.3 L (3.5-5.0) g/dL TSH 5.270 H (0.465-4.680) mIU/L Urine Protein (Negative) Ur Random Sodium (40-220) mmol/L 10/12/24 10/12/24 10/12/24 Range/Units 19:45 21:46 21:46 RBC (4.40-5.60) 10*6/uL Hgb (13.0-17.0) g/dL Hct (39.6-50.0) % MCV (80.0-97.0) fL MCH (27.0-32.0) pg Eosinophils # (0.04-0.35) 10*3/uL VBG pH 7.42 H (7.31-7.41) VBG HCO3 31 H (24-28) mmol/L Sodium (137-145) mmol/L Potassium (3.5-5.1) mmol/L Chloride (98-107) mmol/L Creatinine (0.66-1.25) mg/dL Glucose (74-99) mg/dL POC Glucose (mg/dL) (70-110) mg/dL Alkaline Phosphatase (38-126) U/L C-Reactive Protein (<1.0) mg/dL Total Protein (6.3-8.2) g/dL Albumin (3.5-5.0) g/dL TSH (0.465-4.680) mIU/L Urine Protein Trace H (Negative) Ur Random Sodium 25 L (40-220) mmol/L 10/12/24 10/12/24 10/13/24 Range/Units 22:36 22:58 07:53 RBC (4.40-5.60) 10*6/uL Hgb (13.0-17.0) g/dL Hct (39.6-50.0) % MCV (80.0-97.0) fL MCH (27.0-32.0) pg Eosinophils # (0.04-0.35) 10*3/uL VBG pH (7.31-7.41) VBG HCO3 (24-28) mmol/L Sodium 126 L 128 L (137-145) mmol/L Potassium (3.5-5.1) mmol/L Chloride 95 L (98-107) mmol/L Creatinine 0.47 L (0.66-1.25) mg/dL Glucose 126 H (74-99) mg/dL POC Glucose (mg/dL) (70-110) mg/dL Alkaline Phosphatase (38-126) U/L C-Reactive Protein 7.5 H (<1.0) mg/dL Total Protein 5.5 L (6.3-8.2) g/dL Albumin 3.0 L (3.5-5.0) g/dL TSH (0.465-4.680) mIU/L Urine Protein (Negative) Ur Random Sodium (40-220) mmol/L
[2024-10-13] MEDS: SODIUM CHLORIDE 0.9% 1,000 ML IV SCH (18:18)
--- NOTE | 2024-10-13 18:19 | CT ---
EXAMINATION TYPE: CT chest angio for PE DATE OF EXAM: 10/13/2024 5:47 PM COMPARISON: 07/13/2024. CLINICAL INDICATION: Male, 74 years old with history of dyspnea, ddimer elevated; Dyspnea and elevate d d-dimer. TECHNIQUE/CONTRAST: CTA scan of the thorax is performed with IV Contrast, patient injected with 100 ML mL of Isovue 370, MIP images are created and reviewed these are created on a separate workstation.. CT DLP: 504.6 mGycm, Automated exposure control for dose reduction was used. FINDINGS: Lungs/Pleura: Scattered pulmonary nodules compatible with metastatic disease. The largest nodule in t he left upper lung is increased in size now measuring up to 21 mm previously 8 mm. Additional scatter ed nodules have increased in size and number including left new left lower lobe 10 mm right lower lob e 10 mm right upper lobe 4 mm. No evidence of focal consolidation, pleural effusion or pneumothorax. Mild intralobular septal thicke johnson. Airway: Large airways are patent. Heart: Size within normal limits. Moderate coronary artery calcifications present. Vasculature: There is no evidence for a filling defect within the pulmonary vasculature to suggest ac amos pulmonary embolism. The pulmonary artery is of normal size. Mediastinum: Multiple lymph nodes which are slightly more prominent and increased compared to 07/13/19 25. These all are under 10 mm in short axis. Musculoskeletal: No acute osseous abnormalities Soft Tissues/lymph nodes: Unremarkable. Lower neck: No significant findings. Upper Abdomen: PEG tube in appropriate position. Left renal cysts measuring up to 15 mm. . Bilateral renal cysts on the right with consultation no follow-up recommended. Cholelithiasis. IMPRESSION: 1. No evidence of pulmonary embolism. 2. Progression of metastatic disease compared to 07/13/2034. Increasing size and number of pulmonary n odules. The largest nodule in the left upper lung measuring up to 21 mm. Additionally in the mediasti num demonstrates multiple lymph nodes which are slightly more prominent and increased compared to 06/16. These all are under 10 mm in short axis. 3. Mild pulmonary vascular congestion correlate with serum BNP. [facility], , 10/13/2024 6:17 PM
[2024-10-13 19:56] LABS: Glucose,Whole Blood 138 mg/dL (70-110)
[2024-10-13] MEDS: ATORVASTATIN 20 MG TAB PEG/G-TUBE SCH (20:27)
[2024-10-13] MEDS ORDERED: DEXTROSE 50% SYRINGE 50 ML IVP PRN ×2 (21:51)
--- NOTE | 2024-10-13 21:57 | P.CONS ---
History of Present Illness - Reason for Consult Consult date: 10/13/24 Pneumonia Requesting physician: Olga Avendano - Chief Complaint Weakness x few days - History of Present Illness Patient is a 74-year-old male with a past medical history significant for diabetes mellitus atrial fibrillation hyperlipidemia MS, neck cancer status post chemotherapy, presenting to the hospital for evaluation of generalized weakness and confusion in this patient symptom apparently has been getting worst for the last 1 month for the last 2 to 3 days patient did have progressive weakness and confusion patient also has been complaining of cough mild to moderate intensity not bringing up any sputum denies having any nausea vomiting show regular food abdominal pain or diarrhea on presentation to the hospital patient was afebrile and no fever have been called subsequently patient was tachycardic mildly hypotensive but not requiring any pressor support he was hypoxic currently on 5 L nasal cannula oxygen, patient did have a white count of 9.43 creatinine 0.53 sodium is low at 126 liver enzymes are normal urine has been negative influenza RSV COVID testing negative patient did have a chest x- ray nodule infiltrate left suprahilar region and right infrahilar region may reflect developing underlying pneumonia for the patient has been started on Zosyn infectious disease was consulted for further management of antibiotic therapy Review of Systems Positive points has been mentioned in HPI complete review could not be obtained because of his underlying mental status Past Medical History Past Medical History: Atrial Fibrillation, Cancer, Diabetes Mellitus, Hyperlipidemia, Myocardial Infarction ([place]) Additional Past Medical History / Comment(s): Spine CA C1/C2, CVA, Last Myocardial Infarction Date:: 2010 History of Any Multi-Drug Resistant Organisms: None Reported Past Surgical History: Joint Replacement Additional Past Surgical History / Comment(s): Peg tube, Past Anesthesia/Blood Transfusion Reactions: No Reported Reaction Past Psychological History: No Psychological Hx Reported Smoking Status: Never smoker Past Alcohol Use History: None Reported Past Drug Use History: None Reported Medications and Allergies Home Medications Medication Instructions Recorded Confirmed Type Apixaban [Eliquis] 5 mg PEG/G-TUBE BID 07/21/24 10/12/24 History Atorvastatin [Lipitor] 20 mg PEG/G-TUBE HS 07/21/24 10/12/24 History HYDROcodone/APAP 10-325MG [[place] 1 tab PEG/G-TUBE QID PRN 07/21/24 10/12/24 History 10-325] Esomeprazole Magnesium [NexIUM] 20 mg PEG/G-TUBE BID PRN 10/12/24 10/12/24 History Furosemide [Lasix] 40 mg PEG/G-TUBE DAILY PRN 10/12/24 10/12/24 History Metoprolol Tartrate [Lopressor] 12.5 mg PEG/G-TUBE BID 10/12/24 10/12/24 History Ondansetron Odt [Zofran Odt] 8 mg PEG/G-TUBE Q8H PRN 10/12/24 10/12/24 History Potassium Chloride Oral Liquid 40 meq PEG/G-TUBE DAILY 10/12/24 10/12/24 History Allergies Allergy/AdvReac Type Severity Reaction Status Date / Time Mushroom Allergy Unknown Verified 10/12/24 19:58 mushroom Allergy Unknown Verified 10/12/24 19:58 Physical Exam Vitals: Vital Signs Temp Pulse Resp BP Pulse Ox 10/13/24 07:15 98.2 F 117 H 20 136/87 95 10/13/24 07:06 97.7 F 101 H 18 112/56 95 10/13/24 06:41 102 H 18 118/72 98 10/13/24 03:10 95 18 112/81 95 10/13/24 00:15 107 H 18 118/62 95 10/12/24 23:44 102 H 18 130/72 96 10/12/24 22:56 105 H 20 106/84 94 L 10/12/24 22:02 105 H 18 99/81 94 L 10/12/24 21:02 109 H 18 99/62 10/12/24 20:00 106 H 20 119/59 10/12/24 19:46 105 H 22 113/61 97 10/12/24 19:33 112 H 24 99/70 97 10/12/24 18:30 97.7 F 132 H 18 100/68 92 L Intake and Output 10/12/24 10/13/24 10/13/24 22:59 06:59 14:59 Other: Weight 81.193 kg GENERAL DESCRIPTION: Elderly male lying in bed, no distress. No tachypnea or accessory muscle of respiration use. HEENT: Shows Pallor , no scleral icterus. Oral mucous membrane is dry. NECK: Trachea central, no thyromegaly. LUNGS: Unlabored breathing. Decreased breath sound in the base HEART: S1, S2, regular rate and rhythm. No loud murmur ABDOMEN: Soft, no tenderness EXTREMITIES: No edema of feet. SKIN: No rash, no masses palpable. NEUROLOGICAL: The patient is awake, mood and affect normal. Results CBC & Chem 7: 10/12/24:10/13/24 11:52 Labs: Abnormal Lab Results - Last 24 Hours (Table) 10/12/24 10/12/24 10/12/24 Range/Units 19:25 19: 19:30 RBC 3.10 L (4.40-5.60) 10*6/uL Hgb 10.7 L (13.0-17.0) g/dL Hct 30.7 L (39.6-50.0) % MCV 99.0 H (80.0-97.0) fL MCH 34.5 H (27.0-32.0) pg Eosinophils # 2.46 H (0.04-0.35) 10*3/uL VBG pH (7.31-7.41) VBG HCO3 (24-28) mmol/L Sodium 126 L (137-145) mmol/L Potassium 5.2 H (3.5-5.1) mmol/L Chloride 90 L (98-107) mmol/L Creatinine 0.53 L (0.66-1.25) mg/dL Glucose 149 H (74-99) mg/dL POC Glucose (mg/dL) 141 H (70-110) mg/dL Alkaline Phosphatase 129 H (38-126) U/L C-Reactive Protein (<1.0) mg/dL Total Protein 6.0 L (6.3-8.2) g/dL Albumin 3.3 L (3.5-5.0) g/dL TSH 5.270 H (0.465-4.680) mIU/L Urine Protein (Negative) Ur Random Sodium (40-220) mmol/L 10/12/24 10/12/24 10/12/24 Range/Units 19:45 21:46 21:46 RBC (4.40-5.60) 10*6/uL Hgb (13.0-17.0) g/dL Hct (39.6-50.0) % MCV (80.0-97.0) fL MCH (27.0-32.0) pg Eosinophils # (0.04-0.35) 10*3/uL VBG pH 7.42 H (7.31-7.41) VBG HCO3 31 H (24-28) mmol/L Sodium (137-145) mmol/L Potassium (3.5-5.1) mmol/L Chloride (98-107) mmol/L Creatinine (0.66-1.25) mg/dL Glucose (74-99) mg/dL POC Glucose (mg/dL) (70-110) mg/dL Alkaline Phosphatase (38-126) U/L C-Reactive Protein (<1.0) mg/dL Total Protein (6.3-8.2) g/dL Albumin (3.5-5.0) g/dL TSH (0.465-4.680) mIU/L Urine Protein Trace H (Negative) Ur Random Sodium 25 L (40-220) mmol/L 10/12/24 10/12/24 10/13/24 Range/Units 22:36 22:58 07:53 RBC (4.40-5.60) 10*6/uL Hgb (13.0-17.0) g/dL Hct (39.6-50.0) % MCV (80.0-97.0) fL MCH (27.0-32.0) pg Eosinophils # (0.04-0.35) 10*3/uL VBG pH (7.31-7.41) VBG HCO3 (24-28) mmol/L Sodium 126 L 128 L (137-145) mmol/L Potassium (3.5-5.1) mmol/L Chloride 95 L (98-107) mmol/L Creatinine 0.47 L (0.66-1.25) mg/dL Glucose 126 H (74-99) mg/dL POC Glucose (mg/dL) (70-110) mg/dL Alkaline Phosphatase (38-126) U/L C-Reactive Protein 7.5 H (<1.0) mg/dL Total Protein 5.5 L (6.3-8.2) g/dL Albumin 3.0 L (3.5-5.0) g/dL TSH (0.465-4.680) mIU/L Urine Protein (Negative) Ur Random Sodium (40-220) mmol/L Assessment and Plan (1) Abnormal chest x-ray Current Visit: Yes Status: Acute Code(s): R93.89 - ABNORMAL FINDINGS ON DX IMAGING OF OTH BODY STRUCTURES SNOMED Code(s): 997666328 (2) Pneumonia Current Visit: No Status: Acute Priority: High Code(s): J18.9 - PNEUMONIA, UNSPECIFIED ORGANISM SNOMED Code(s): 734073797 Plan: 1patient presented to hospital with progressive weakness in this patient who did have a history of head and neck cancer has been on chemotherapy now with evidence of abnormality seen on the chest x-ray with a question of possible metastatic disease clinically not behaving as pneumonia in this patient currently with no fever elevated white count other etiologies could be PE 2await the CT of the chest to be completed to better define underlying pathology 3we will check a procalcitonin level 4for now we will hold on adding any systemic antibiotic therapy as clinically not behaving as pneumonia We will follow on clinical condition and cultures to further adjust medication if needed Thank you for this consultation we will follow the patient along with you Dictation was produced using [employer] dictation software. please excuse any grammatical, word or spelling errors. Time with Patient: Greater than 30
[2024-10-13] MEDS ORDERED: PIPERACILLIN-TAZOBACTAM 3.375 GM in SODIUM CHLORIDE 0.9% 100 ML IVPB SCH (23:00)
[2024-10-14 00:07] LABS: Glucose,Whole Blood 186 mg/dL (70-110)
[2024-10-14] MEDS: INSULIN LISPRO (HumaLOG) 100 UNIT/ML 10 mL VL SQ SCH (00:08)
[2024-10-14 06:04] LABS: Glucose,Whole Blood 144 mg/dL (70-110)
[2024-10-14 07:19] LABS: Basophils # (A) 0.05 10*3/uL (0.00-0.10); Basophils % (A) 0.5 %; Eosinophils # (A) 2.88 10*3/uL (0.04-0.35); Eosinophils % (A) 29.7 %; HCT 27.5 % (39.6-50.0); Lymphocytes # (A) 2.36 10*3/uL (0.90-5.00); Lymphocytes % (A) 24.4 %; MCH 35.2 pg (27.0-32.0); MCHC 34.2 g/dL (32.0-37.0); Mean Platelet Volume 10.5 fL (9.5-12.2); Monocytes # (A) 0.72 10*3/uL (0.20-1.00); Monocytes % (A) 7.4 %; Neutrophils # (A) 3.65 10*3/uL (1.80-7.70); Neutrophils % (A) 37.7 %; Platelet Count 265 10*3/uL (140-440); RBC 2.67 10*6/uL (4.40-5.60); RDW 15.5 % (11.5-14.5); WBC 9.69 10*3/uL (4.50-10.00)
[2024-10-14 07:43] LABS: ALT 12 U/L (4-49); African American GFR (CKD) >90 (>60 ml/min/1.73 sqM); Anion Gap 2 mmol/L; Blood Urea Nitrogen 13 mg/dL (9-20); Calcium 8.1 mg/dL (8.4-10.2); Carbon Dioxide 29 mmol/L (22-30); Chloride 95 mmol/L (98-107); Glucose 133 mg/dL (74-99); Non-African American GFR(CKD) >90 (>60 ml/min/1.73 sqM); Sodium 126 mmol/L (137-145)
[2024-10-14 07:49] LABS: HGB 9.4 g/dL (13.0-17.0)
[2024-10-14 08:17] LABS: Potassium 4.8 mmol/L (3.5-5.1)
[2024-10-14 08:18] LABS: AST 53 U/L (17-59); Albumin 2.8 g/dL (3.5-5.0); Alkaline Phosphatase 91 U/L (38-126); Total Bilirubin 1.1 mg/dL (0.2-1.3); Total Protein 5.5 g/dL (6.3-8.2)
[2024-10-14] MEDS: METOPROLOL TARTRATE 25 MG TAB PO SCH (10:55)
[2024-10-14 11:31] LABS: Glucose,Whole Blood 177 mg/dL (70-110)
--- NOTE | 2024-10-14 12:12 | P.CRDCN ---
History of Present Illness History of present illness: HISTORY OF PRESENT ILLNESS: This is a 74-year-old male with a past medical history significant for neck cancer status post chemotherapy, atrial fibrillation, congestive heart failure, hyperlipidemia and PEG tube insertion. 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 We have been asked to see the patient in consultation for A-fib with RVR. Patient examined at the bedside. Patient is admitted to the hospital secondary to generalized weakness and worsening confusion. Patient was found to be in A-fib with RVR. He was started on IV Cardizem. This morning he remains in atrial fibrillation with a heart rate around 105. He is anticoagulated with Eliquis. Patient denies any chest pain or pressure. Denies any shortness of breath. Vital signs are stable. DIAGNOSTICS: - EKG reveals A-fib with RVR. - Chest xray nodular infiltrate left suprahilar region and right infrahilar [place] on may reflect underlying developing pneumonia - Laboratory data: WBC 9.69. Hemoglobin 9.4. Platelet count 265. Sodium 126. Potassium 4.8. BUN 13. Creatinine 0.37 - Current home cardiac medications include Lasix 40 mg daily, Eliquis 5 mg twice a day, Lipitor 20 mg daily, Toprol tartrate 12.5 mg twice a day. - Most recent echocardiogram obtained in July 2024 revealing ejection fraction 45 to 50%, mild MR, mild TR - Cardiac catheterization history: Unknown REVIEW OF SYSTEMS: At the time of my exam: CONSTITUTIONAL: Denies fever or chills. HEENT: Denies blurred vision, vision changes, or eye pain. Denies hemoptysis CARDIOVASCULAR: Denies chest pain. Denies orthopnea. Denies PND. Denies palpitations RESPIRATORY: Denies shortness of breath. GASTROINTESTINAL: Denies abdominal pain. Denies nausea or vomiting. HEMATOLOGIC: Denies bleeding disorders. GENITOURINARY: Denies any blood in urine. SKIN: Denies pruitis. Denies rash. PHYSICAL EXAM: VITAL SIGNS: Reviewed. GENERAL: Well-developed in no acute distress. HEENT: Head is normocephalic. Pupils are equal, round. Sclerae anicteric. Mucous membranes of the mouth are moist. Neck supple. No JVD or thyromegaly LUNGS: Respirations even and unlabored. Lungs essentially clear to auscultation bilaterally. HEART: Irregular rate and rhythm. S1 and S2 heard. ABDOMEN: Soft. Nondistended. Nontender. PEG tube noted. EXTREMITIES: Normal range of motion. No clubbing or cyanosis. Peripheral pulses intact. No lower extremity edema NEUROLOGIC: Awake and alert. ASSESSMENT: Generalized weakness Altered mental status Possible pneumonia Persistent atrial fibrillation with RVR History of neck cancer status postchemotherapy Chronic heart failure with mildly reduced EF 45 to 50%, currently euvolemic History of hyperlipidemia History of PEG tube implantation PLAN: No need to repeat echocardiogram as this was performed in July 2024 Continue anticoagulation with Eliquis Discontinue IV Cardizem Resume metoprolol. Increase dosage to 25 mg twice a day Continue telemetry monitoring Further recommendations pending patient course Nurse practitioner note has been reviewed by physician. Signing provider agrees with the documented findings, assessment, and plan of care documented by RESIDENTIAL GREEN BUILDING DESIGNER as a scribe. Past Medical History Past Medical History: Atrial Fibrillation, Cancer, Diabetes Mellitus, Hyperlipidemia, Myocardial Infarction (CA) Additional Past Medical History / Comment(s): Spine CA C1/C2, CVA, Last Myocardial Infarction Date:: 2010 History of Any Multi-Drug Resistant Organisms: None Reported Past Surgical History: Joint Replacement Additional Past Surgical History / Comment(s): Peg tube, Past Anesthesia/Blood Transfusion Reactions: No Reported Reaction Past Psychological History: No Psychological Hx Reported Smoking Status: Never smoker Past Alcohol Use History: None Reported Past Drug Use History: None Reported Medications and Allergies Home Medications Medication Instructions Recorded Confirmed Type Apixaban [Eliquis] 5 mg PEG/G-TUBE BID 07/21/24 10/12/24 History Atorvastatin [Lipitor] 20 mg PEG/G-TUBE HS 07/21/24 10/12/24 History HYDROcodone/APAP 10-325MG [[place] 1 tab PEG/G-TUBE QID PRN 07/21/24 10/12/24 History 10-325] Esomeprazole Magnesium [NexIUM] 20 mg PEG/G-TUBE BID PRN 10/12/24 10/12/24 History Furosemide [Lasix] 40 mg PEG/G-TUBE DAILY PRN 10/12/24 10/12/24 History Metoprolol Tartrate [Lopressor] 12.5 mg PEG/G-TUBE BID 10/12/24 10/12/24 History Ondansetron Odt [Zofran Odt] 8 mg PEG/G-TUBE Q8H PRN 10/12/24 10/12/24 History Potassium Chloride Oral Liquid 40 meq PEG/G-TUBE DAILY 10/12/24 10/12/24 History Allergies Allergy/AdvReac Type Severity Reaction Status Date / Time Mushroom Allergy Unknown Verified 10/12/24 19:58 mushroom Allergy Unknown Verified 10/12/24 19:58 Physical Exam Vitals: Vital Signs Temp Pulse Resp BP Pulse Ox 10/14/24 10:55 97.9 F 104 H 16 100/61 93 L 10/14/24 08:00 97.9 F 110 H 16 117/72 92 L 10/14/24 03:41 97.7 F 105 H 16 96/54 95 10/13/24 23:33 97.4 F L 101 H 16 120/77 93 L 10/13/24 20:00 97.4 F L 105 H 16 99/62 95 10/13/24 16:00 96.4 F L 94 16 95/57 97 10/13/24 14:00 94 16 Intake and Output 10/13/24 10/14/24 10/14/24 22:59 06:59 14:59 Other: Voiding Method Toilet Toilet Toilet Urinal Urinal Urinal Weight 81.193 kg 65.5 kg Results 10/14/24 06:42 10/14/24 06:42 Cardiac Enzymes 10/14/24 Range/Units 06:42 AST 53 (17-59) U/L CBC 10/14/24 Range/Units 06:42 WBC 9.69 (4.50-10.00) 10*3/uL RBC 2.67 L (4.40-5.60) 10*6/uL Hgb 9.4 L (13.0-17.0) g/dL Hct 27.5 L (39.6-50.0) % Plt Count 265 (140-440) 10*3/uL Comprehensive Metabolic Panel 10/13/24 10/13/24 10/14/24 Range/Units 11:52 21:20 06:42 Sodium 127 L 126 L 126 L (137-145) mmol/L Potassium 4.8 (3.5-5.1) mmol/L Chloride 95 L (98-107) mmol/L Carbon Dioxide 29 (22-30) mmol/L BUN 13 (9-20) mg/dL Creatinine 0.37 L (0.66-1.25) mg/dL Glucose 133 H (74-99) mg/dL Calcium 8.1 L (8.4-10.2) mg/dL AST 53 (17-59) U/L ALT 12 (4-49) U/L Alkaline Phosphatase 91 (38-126) U/L Total Protein 5.5 L (6.3-8.2) g/dL Albumin 2.8 L (3.5-5.0) g/dL Current Medications Generic Name Dose Route Start Last Admin Trade Name Freq PRN Reason Stop Dose Admin Hydrocodone Bitart/Acetaminophen 1 each 10/12/24 22:23 10/13/24 19:11 Hydrocodone/Apap 10-325mg 1 Each Tab PEG/G-TUBE 0.5 each QID PRN Administration Pain Apixaban 5 mg 10/12/24 22:30 10/14/24 09:10 Apixaban 5 Mg Tab PEG/G-TUBE 5 mg BID AJIT Administration Protocol Atorvastatin Calcium 20 mg 10/13/24 21:00 10/13/24 20:27 Atorvastatin 20 Mg Tab PEG/G-TUBE 20 mg HS AJIT Administration Dextrose/Water 25 ml 10/13/24 21:51 Dextrose 50% Syringe 50 Ml IVP PER PROTOCOL PRN Hypoglycemia Protocol Dextrose/Water 50 ml 10/13/24 21:51 Dextrose 50% Syringe 50 Ml IVP PER PROTOCOL PRN Hypoglycemia Protocol Sodium Chloride 1,000 mls @ 70 mls/hr 10/13/24 17:15 10/14/24 06:21 Saline 0.9% IV Not Given .[id number] [facility] Insulin Human Lispro 0 unit 10/14/24 00:00 10/14/24 06:16 Insulin Lispro (Humalog) 100 Unit/Ml 10 Ml Vl SQ Not Given Q6H [facility] Protocol Metoprolol Tartrate 25 mg 10/14/24 10:15 10/14/24 10:55 Metoprolol Tartrate 25 Mg Tab PO 25 mg BID AJIT Administration Miscellaneous Information 1 each 10/12/24 22:34 Pneumonia Protocol Utilized 1 Each Misc PO ONCE PRN Per Protocol Pantoprazole Sodium 40 mg 10/12/24 22:28 Pantoprazole Sodium 40 Mg Granule Pkt PEG/G-TUBE AC-[id number] PRN GI Upset Intake and Output 10/13/24 10/14/24 10/14/24 22:59 06:59 14:59 Other: Voiding Method Toilet Toilet Toilet Urinal Urinal Urinal Weight 81.193 kg 65.5 kg 10/14/24 06:42 10/14/24 06:42
[2024-10-14] MEDS: AZITHROMYCIN 500 MG in SODIUM CHLORIDE 0.9% 250 ML IVPB SCH (13:35)
[2024-10-14] MEDS: dexAMETHasone 4 MG TAB PO SCH (13:39)
--- NOTE | 2024-10-14 14:27 | P.PN ---
Subjective Progress Note Date: 10/14/24 Seen in follow-up for hyponatremia. Patient is awake, comfortable, no acute distress Examination of the heart S1 and S2 Examination of the lungs shows bilateral breath sounds are heard Abdomen is soft nontender, PEG tube noted Examination of lower extremity shows no significant edema Objective - Vital Signs Vital signs: Vital Signs Temp 97.9 F 10/14/24 10:55 Pulse 104 H 10/14/24 10:55 Resp 16 10/14/24 10:55 BP 100/61 10/14/24 10:55 Pulse Ox 93 L 10/14/24 10:55 FiO2 Intake & Output 10/13/24 10/14/24 10/14/24 18:59 06:59 18:59 Intake Total 85.167 Balance 85.167 Weight 81.193 kg 65.5 kg Intake: Intake, IV Titration 85.167 Amount Diltiazem 125 mg In 85.167 Dextrose 5% in Water 100 ml @ 5 MG/HR 5 mls/hr IV .Q24H [facility] Rx#:[id number] Oral 0 Other: Voiding Method Toilet Toilet Toilet Urinal Urinal Urinal - Labs CBC & Chem 7: 10/14/24 06:42 10/14/24 06:42 Labs: Abnormal Lab Results - Last 24 Hours (Table) 10/13/24 10/13/24 10/13/24 Range/Units 13:49 16:04 19:54 RBC (4.40-5.60) 10*6/uL Hgb (13.0-17.0) g/dL Hct (39.6-50.0) % MCV (80.0-97.0) fL MCH (27.0-32.0) pg Eosinophils # (0.04-0.35) 10*3/uL D-Dimer 2.77 H (<0.60) mg/L FEU Sodium (137-145) mmol/L Chloride (98-107) mmol/L Creatinine (0.66-1.25) mg/dL Glucose (74-99) mg/dL POC Glucose (mg/dL) 118 H 138 H (70-110) mg/dL Calcium (8.4-10.2) mg/dL Total Protein (6.3-8.2) g/dL Albumin (3.5-5.0) g/dL 10/13/24 10/14/24 10/14/24 Range/Units 21:20 00:06 06:03 RBC (4.40-5.60) 10*6/uL Hgb (13.0-17.0) g/dL Hct (39.6-50.0) % MCV (80.0-97.0) fL MCH (27.0-32.0) pg Eosinophils # (0.04-0.35) 10*3/uL D-Dimer (<0.60) mg/L FEU Sodium 126 L (137-145) mmol/L Chloride (98-107) mmol/L Creatinine (0.66-1.25) mg/dL Glucose (74-99) mg/dL POC Glucose (mg/dL) 186 H 144 H (70-110) mg/dL Calcium (8.4-10.2) mg/dL Total Protein (6.3-8.2) g/dL Albumin (3.5-5.0) g/dL 10/14/24 10/14/24 10/14/24 Range/Units 06:42 06:42 11:29 RBC 2.67 L (4.40-5.60) 10*6/uL Hgb 9.4 L (13.0-17.0) g/dL Hct 27.5 L (39.6-50.0) % MCV 103.0 H (80.0-97.0) fL MCH 35.2 H (27.0-32.0) pg Eosinophils # 2.88 H (0.04-0.35) 10*3/uL D-Dimer (<0.60) mg/L FEU Sodium 126 L (137-145) mmol/L Chloride 95 L (98-107) mmol/L Creatinine 0.37 L (0.66-1.25) mg/dL Glucose 133 H (74-99) mg/dL POC Glucose (mg/dL) 177 H (70-110) mg/dL Calcium 8.1 L (8.4-10.2) mg/dL Total Protein 5.5 L (6.3-8.2) g/dL Albumin 2.8 L (3.5-5.0) g/dL Microbiology - Last 24 Hours (Table) 10/13/24 19:00 Gram Stain - Preliminary Sputum 10/12/24 19:25 Blood Culture - Preliminary Blood Assessment and Plan Assessment: 1. Hyponatremia, most likely hypovolemic. Improved with IV fluids in the ER. Patient is hemodynamically stable. Lasix held. Continue with tube feedings with minimum free water. Sodium stable 126 2. History of head and neck cancer status post chemotherapy, status post PEG tube placement about a month ago 3. Chronic A-fib maintained on Eliquis and Lopressor 4. Coronary artery disease with history of NC Plan: Hold Lasix Continue tube feedings with minimal free water for now. Repeat labs in a.m. If sodium drops again will consider restarting IVF normal saline
--- NOTE | 2024-10-14 15:31 | P.PN ---
Subjective Progress Note Date: 10/14/24 History of present illness; Patient is a 74-year-old male past medical history of neck cancer status post c hemotherapy who presents for generalized weakness and confusion. Confusion has worsened over the past 2 to 3 days he will stare off and needs multiple prompts to answer questions. Patient's states that he was released from [facility] about 1.5 months ago and has since become progressively weaker. During that time he had PEG tube placed. No recent falls. He is on Eliquis for hist ory of A-fib. Absence of fever, chills, chest pain, palpitations, abdominal pain, dysuria. 10/14/2024. Patient seen and examined at bedside. He is alert and oriented x2. He continues to be on 5 L nasal cannula saturating at 93%. CTA chest without evidence of pulmonary embolism. No new complaints, consult pulmonology for continued hypoxic respiratory failure, will order brain MRI for possible m etastasis to brain. Today's labs WBC 9.6, hemoglobin 9.4, MCV 103, sodium 126, creatinine 0.37, ammonia is WNL. REVIEW OF SYSTEMS: Pertinent positives and negatives noted in HPI. PHYSICAL EXAMINATION: Vitals reviewed GENERAL: Resting comfortably in bed. EYES: PERRL, no scleral injection or icterus. No vision loss HENT: Normocephalic, atraumatic, hearing grossly intact, moist mucous membranes NECK: No tracheal deviation, full range of motion. CARDIOVASCULAR: S1 and S2 present. Irregular rhythm. PULMONARY: Chest is clear to auscultation, no wheezing, rhonchi, or crackles. ABDOMEN: Soft, nontender, nondistended. No palpable organomegaly. PEG tube. MUSCULOSKELETAL: No apparent joint swelling and deformities. EXTREMITIES: No apparent cyanosis, clubbing. No pedal edema. NEUROLOGICAL: Alert and oriented x2. 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 SKIN: No apparent rashes. Assessment and Plan: #Acute encephalopathy, possible ischemic infarct versus lesion #Acute hypoxic respiratory failure, less likely pneumonia #Generalized weakness #Eosinophila #Otomastoiditis Afebrile, WBC is WNL, Procalcitonin negative. Begin azithromycin daily MRI brain with and without contrast D-dimer 2.7, CTA chest without evidence of pulmonary embolism Blood, sputum, Legionella culture pending Begin Decadron PT OT consulted Pulmonology consulted ID consulted Neurology consulted # A-fib with RVR Continue Eliquis Discontinue Cardizem continue metoprolol continue metoprolol 25 twice daily Cardiology consulted #Hypovolemic hyponatremia #CHF with systolic dysfunction EF 45 to 50% Hold Lasix Continue IV NS Nephrology consulted Chronic Medical Conditions History of neck cancers/p chemotherapy PEG tube placement, dietitian consulted CAD Resume home medications DVT ppx: Lovenox 40 meq daily F: IV NS E: Replete as needed N: Enteral feeding, PEG tube nutrition consulted Anticipated discharge place: Pending clinical course Anticipated discharge time: Pending clinical course Dr. Bob seen patient with resident, present during exam, and agreed with findings. Dictation was produced using [employer] dictation software. Please excuse any grammatical, word or spelling errors. Objective - Vital Signs Vital signs: Vital Signs Temp 97.7 F 10/14/24 03:41 Pulse 105 H 10/14/24 03:41 Resp 16 10/14/24 03:41 BP 96/54 10/14/24 03:41 Pulse Ox 95 10/14/24 03:41 FiO2 Intake & Output 10/13/24 10/14/24 10/14/24 18:59 06:59 18:59 Intake Total 85.167 Balance 85.167 Weight 81.193 kg 65.5 kg Intake: Intake, IV Titration 85.167 Amount Diltiazem 125 mg In 85.167 Dextrose 5% in Water 100 ml @ 5 MG/HR 5 mls/hr IV .Q24H [facility] Rx#:[id number] Oral 0 Other: Voiding Method Toilet Toilet Urinal Urinal - Labs CBC & Chem 7: 10/14/24 06:42 10/14/24 06:42 Labs: Abnormal Lab Results - Last 24 Hours (Table) 10/12/24 10/13/24 10/13/24 Range/Units 22:58 11:18 11:52 RBC (4.40-5.60) 10*6/uL Hgb (13.0-17.0) g/dL Hct (39.6-50.0) % MCV (80.0-97.0) fL MCH (27.0-32.0) pg D-Dimer (<0.60) mg/L FEU Sodium 127 L (137-145) mmol/L Chloride (98-107) mmol/L Creatinine (0.66-1.25) mg/dL Glucose (74-99) mg/dL POC Glucose (mg/dL) 132 H (70-110) mg/dL Osmolality 265 L (275-295) mOsm/kg Calcium (8.4-10.2) mg/dL Total Protein (6.3-8.2) g/dL Albumin (3.5-5.0) g/dL 10/13/24 10/13/24 10/13/24 Range/Units 13:49 16:04 19:54 RBC (4.40-5.60) 10*6/uL Hgb (13.0-17.0) g/dL Hct (39.6-50.0) % MCV (80.0-97.0) fL MCH (27.0-32.0) pg D-Dimer 2.77 H (<0.60) mg/L FEU Sodium (137-145) mmol/L Chloride (98-107) mmol/L Creatinine (0.66-1.25) mg/dL Glucose (74-99) mg/dL POC Glucose (mg/dL) 118 H 138 H (70-110) mg/dL Osmolality (275-295) mOsm/kg Calcium (8.4-10.2) mg/dL Total Protein (6.3-8.2) g/dL Albumin (3.5-5.0) g/dL 10/13/24 10/14/24 10/14/24 Range/Units 21:20 00:06 06:03 RBC (4.40-5.60) 10*6/uL Hgb (13.0-17.0) g/dL Hct (39.6-50.0) % MCV (80.0-97.0) fL MCH (27.0-32.0) pg D-Dimer (<0.60) mg/L FEU Sodium 126 L (137-145) mmol/L Chloride (98-107) mmol/L Creatinine (0.66-1.25) mg/dL Glucose (74-99) mg/dL POC Glucose (mg/dL) 186 H 144 H (70-110) mg/dL Osmolality (275-295) mOsm/kg Calcium (8.4-10.2) mg/dL Total Protein (6.3-8.2) g/dL Albumin (3.5-5.0) g/dL 10/14/24 10/14/24 Range/Units 06:42 06:42 RBC 2.67 L (4.40-5.60) 10*6/uL Hgb 9.4 L (13.0-17.0) g/dL Hct 27.5 L (39.6-50.0) % MCV 103.0 H (80.0-97.0) fL MCH 35.2 H (27.0-32.0) pg D-Dimer (<0.60) mg/L FEU Sodium 126 L (137-145) mmol/L Chloride 95 L (98-107) mmol/L Creatinine 0.37 L (0.66-1.25) mg/dL Glucose 133 H (74-99) mg/dL POC Glucose (mg/dL) (70-110) mg/dL Osmolality (275-295) mOsm/kg Calcium 8.1 L (8.4-10.2) mg/dL Total Protein 5.5 L (6.3-8.2) g/dL Albumin 2.8 L (3.5-5.0) g/dL Microbiology - Last 24 Hours (Table) 10/13/24 19:00 Gram Stain - Preliminary Sputum 10/12/24 19:25 Blood Culture - Preliminary Blood
--- NOTE | 2024-10-14 15:48 | P.CNPUL ---
History of Present Illness Consult date: 10/14/24 Requesting physician: Dimitri Bob Reason for consult: abnormal CXR/CT Chief complaint: Progressive generalized weakness History of present illness: This is a 74-year-old male patient with a known history of metastatic head and neck cancer diagnosed back in April 2024. He had been treated with Taxol carboplatin and subsequently on Keytruda. He was admitted here back in July 2024 with neutropenic fever and sepsis with acute toxic metabolic encephalopathy. He was discharged to home August 23, 2024. In the interim he had been at [facility] approximately 1-1/2 months ago. He did have a PEG tube placed. No other details available at this time. He was brought into the emergency room yesterday with progressive weakness and altered mental status. His states he has been getting weaker and weaker and confused and just staring off into space. CT scan of the brain revealed interval decreased attenuation within the left cerebral hemisphere. This could reflect ischemic insult versus underlying lesion. Left-sided mastoiditis. Chest x-ray shows nodular infiltrate in the left suprahilar region and right infrahilar region. CT angiogram revealed no evidence of pulmonary embolism. There is progression of metastatic disease compared to June 2024. Increasing number of pulmonary nodules. Mediastinum demonstrates multiple lymph nodes which are slightly more prominent and increased compared to June 2024. Mild pulmonary vascular congestion. White count 9.6. Hemoglobin 9.4. Platelets 265. Sodium 126. Potassium 4.8. Bicarb 29. BUN 13. Creatinine 0.37. Glucose 133. He is seen today in consultation on the selective care unit. He is currently awake. He is alert but confused to time and place. Very poor historian. Unable to obtain any significant information. Maintaining good O2 saturations in the 90s on 5 L/min per nasal cannula. He is been afebrile. Slightly tachycardic. No tachypnea. Review of Systems ROS unobtainable: due to mental status Past Medical History Past Medical History: Atrial Fibrillation, Cancer, Diabetes Mellitus, Hyperlipidemia, Myocardial Infarction ([place]) Additional Past Medical History / Comment(s): Spine CA C1/C2, CVA, Last Myocardial Infarction Date:: 2010 History of Any Multi-Drug Resistant Organisms: None Reported Past Surgical History: Joint Replacement Additional Past Surgical History / Comment(s): Peg tube, Past Anesthesia/Blood Transfusion Reactions: No Reported Reaction Past Psychological History: No Psychological Hx Reported Smoking Status: Never smoker Past Alcohol Use History: None Reported Past Drug Use History: None Reported Medications and Allergies Home Medications Medication Instructions Recorded Confirmed Type Apixaban [Eliquis] 5 mg PEG/G-TUBE BID 07/21/24 10/12/24 History Atorvastatin [Lipitor] 20 mg PEG/G-TUBE HS 07/21/24 10/12/24 History HYDROcodone/APAP 10-325MG [[place] 1 tab PEG/G-TUBE QID PRN 07/21/24 10/12/24 History 10-325] Esomeprazole Magnesium [NexIUM] 20 mg PEG/G-TUBE BID PRN 10/12/24 10/12/24 History Furosemide [Lasix] 40 mg PEG/G-TUBE DAILY PRN 10/12/24 10/12/24 History Metoprolol Tartrate [Lopressor] 12.5 mg PEG/G-TUBE BID 10/12/24 10/12/24 History Ondansetron Odt [Zofran Odt] 8 mg PEG/G-TUBE Q8H PRN 10/12/24 10/12/24 History Potassium Chloride Oral Liquid 40 meq PEG/G-TUBE DAILY 10/12/24 10/12/24 History Allergies Allergy/AdvReac Type Severity Reaction Status Date / Time Mushroom Allergy Unknown Verified 10/12/24 19:58 mushroom Allergy Unknown Verified 10/12/24 19:58 Physical Exam Vitals: Vital Signs Temp Pulse Resp BP Pulse Ox 10/14/24 10:55 97.9 F 104 H 16 100/61 93 L 10/14/24 08:00 97.9 F 110 H 16 117/72 92 L 10/14/24 03:41 97.7 F 105 H 16 96/54 95 10/13/24 23:33 97.4 F L 101 H 16 120/77 93 L 10/13/24 20:00 97.4 F L 105 H 16 99/62 95 10/13/24 16:00 96.4 F L 94 16 95/57 97 Intake and Output 10/14/24 10/14/24 10/14/24 06:59 14:59 22:59 Other: Voiding Method Toilet Toilet Urinal Urinal Weight 65.5 kg GENERAL EXAM: Alert, frail, confused 74-year-old male, on 5 L nasal cannula, fairly comfortable in no apparent distress. HEAD: Normocephalic. EYES: Normal reaction of pupils, equal size. NOSE: Clear with pink turbinates. THROAT: No erythema or exudates. NECK: No masses, no JVD. CHEST: No chest wall deformity. LUNGS: Equal air entry with few scattered rhonchi. CVS: S1 and S2 normal with no audible murmur, regular rhythm. ABDOMEN: PEG tube exit site clean and dry. No hepatosplenomegaly, normal bowel sounds, no guarding or rigidity. SPINE: No scoliosis or deformity SKIN: No rashes CENTRAL NERVOUS SYSTEM: No focal deficits, tone is normal in all 4 extremities. EXTREMITIES: There is no peripheral edema. No clubbing, no cyanosis. Periph eral pulses are intact. Results - Laboratory Findings CBC and BMP: 10/14/24 06:42 10/14/24 06:42 PT/INR, D-dimer PT 12.4 sec (10.0-12.5) 10/12/24: INR 1.1 (<1.2) 10/12/24 19: D-Dimer 2.77 mg/L FEU (<0.60) H 10/13/24 13:49 Abnormal lab findings: Abnormal Labs 10/12/24 10/12/24 10/12/24 19:25 19:25 19:30 RBC 3.10 L Hgb 10.7 L Hct 30.7 L MCV 99.0 H MCH 34.5 H Eosinophils # 2.46 H D-Dimer VBG pH VBG HCO3 Sodium 126 L Potassium 5.2 H Chloride 90 L Creatinine 0.53 L Glucose 149 H POC Glucose (mg/dL) 141 H Osmolality Calcium Alkaline Phosphatase 129 H C-Reactive Protein Total Protein 6.0 L Albumin 3.3 L TSH 5.270 H Urine Protein Ur Random Sodium 10/12/24 10/12/24 10/12/24 19:45 21:46 21:46 RBC Hgb Hct MCV MCH Eosinophils # D-Dimer VBG pH 7.42 H VBG HCO3 31 H Sodium Potassium Chloride Creatinine Glucose POC Glucose (mg/dL) Osmolality Calcium Alkaline Phosphatase C-Reactive Protein Total Protein Albumin TSH Urine Protein Trace H Ur Random Sodium 25 L 05/01/25 05/01/25 05/02/25 22:36 22:58 07:53 RBC Hgb Hct MCV MCH Eosinophils # D-Dimer VBG pH VBG HCO3 Sodium 126 L 128 L Potassium Chloride 95 L Creatinine 0.47 L Glucose 126 H POC Glucose (mg/dL) Osmolality 265 L Calcium Alkaline Phosphatase C-Reactive Protein 7.5 H Total Protein 5.5 L Albumin 3.0 L TSH Urine Protein Ur Random Sodium 10/13/24 10/13/24 10/13/24 11:18 11:52 13:49 RBC Hgb Hct MCV MCH Eosinophils # D-Dimer 2.77 H VBG pH VBG HCO3 Sodium 127 L Potassium Chloride Creatinine Glucose POC Glucose (mg/dL) 132 H Osmolality Calcium Alkaline Phosphatase C-Reactive Protein Total Protein Albumin TSH Urine Protein Ur Random Sodium 10/13/24 10/13/24 10/13/24 16:04 19:54 21:20 RBC Hgb Hct MCV MCH Eosinophils # D-Dimer VBG pH VBG HCO3 Sodium 126 L Potassium Chloride Creatinine Glucose POC Glucose (mg/dL) 118 H 138 H Osmolality Calcium Alkaline Phosphatase C-Reactive Protein Total Protein Albumin TSH Urine Protein Ur Random Sodium 10/14/24 10/14/24 10/14/24 00:06 06:03 06:42 RBC 2.67 L Hgb 9.4 L Hct 27.5 L MCV 103.0 H MCH 35.2 H Eosinophils # 2.88 H D-Dimer VBG pH VBG HCO3 Sodium Potassium Chloride Creatinine Glucose POC Glucose (mg/dL) 186 H 144 H Osmolality Calcium Alkaline Phosphatase C-Reactive Protein Total Protein Albumin TSH Urine Protein Ur Random Sodium 10/14/24 10/14/24 06:42 11:29 RBC Hgb Hct MCV MCH Eosinophils # D-Dimer VBG pH VBG HCO3 Sodium 126 L Potassium Chloride 95 L Creatinine 0.37 L Glucose 133 H POC Glucose (mg/dL) 177 H Osmolality Calcium 8.1 L Alkaline Phosphatase C-Reactive Protein Total Protein 5.5 L Albumin 2.8 L TSH Urine Protein Ur Random Sodium - Diagnostic Findings Chest x-ray: image reviewed CT scan - chest: image reviewed Assessment and Plan Assessment: Acute hypoxic respiratory failure secondary to progression of metastatic head and neck cancer. Chest x-ray shows nodular infiltrate in the left suprahilar region and right infrahilar region. CT angiogram revealed no evidence of pulmonary embolism. There is progression of metastatic disease compared to June 2024. Increasing number of pulmonary nodules. Mediastinum demonstrates multiple lymph nodes which are slightly more prominent and increased compared to June 2024. Mild pulmonary vascular congestion. Altered mental status secondary to above. CT scan of the brain revealed interval decreased attenuation within the left cerebral hemisphere. This could reflect ischemic insult versus underlying lesion. Left-sided mastoiditis History of metastatic head and neck cancer diagnosed back in April 2024. He initially had been on Taxol, carboplatin and Keytruda Progressive weakness and debility secondary to above History of neutropenic fever with severe sepsis back in July 2024 treated here History of dysphagia secondary to above, PEG tube placed History of diabetes mellitus, type II History of chronic atrial fibrillation maintained on Eliquis Hyperlipidemia Non smoker Poor overall functional performance based on the above-mentioned multiple comorbidities Plan: The patient was seen and evaluated Labs and medications reviewed Chest x-ray reviewed CT scan of the brain reviewed CT angio of the chest reviewed Doubt pneumonia, most likely metastasis Continued on Eliquis Initiated on Decadron Prognosis is guarded CODE STATUS to be addressed We will continue to follow and make further recommendations based on his clinical status I have personally seen and examined the patient, performed the documentation and the assessment and plan as written. Number of minutes spent on the visit: 20 Dictation was produced using [employer] software. Please excuse any grammatical, word or spelling errors.
[2024-10-14 16:36] LABS: Glucose,Whole Blood 187 mg/dL (70-110)
--- NOTE | 2024-10-15 00:02 | P.CNNES ---
History of Present Illness Consult date: 10/14/24 Requesting physician: Boris Tovar Reason for Consult: CT brain findings, possible CVA History of Present Illness: Patient is a 74-year-old right-handed male with history of metastatic head and neck cancer, came to the hospital 2 days ago, 10/12/2024 at 6:23 PM for generalized weakness. Patient's was present, who provided most of the history. She mentions that patient had recent recurrent hospitalizations for his cancer in the previous 2 months. He was about 45 days in the hospital or to whether. He was in ICU for 3 weeks and made it through. He was discharged on 09/17/2024. After discharge, he was doing better, getting physical therapy, until last Wednesday, when he started getting worse again. He has been having difficulty breathing also getting headache. Patient had an ENT procedure s cheduled on 10/10/2024 and also had MRI scheduled for Wednesday. He could not finish MRI because of claustrophobia. However they were able to obtain some images. Since Wednesday, every day he has been getting worse. Vital signs on arrival blood pressure 100/68, pulse rate [address] head revealed previous interval decrease attenuation within the left cerebellar hemisphere. This could reflect ischemic insult versus underlying lesion. MRI of the brain is recommended. Left-sided otomastoiditis. I personally reviewed CT head and agree with the findings. Chest x-ray showed nodular infiltrate left suprahilar region and right infrahilar region may reflect underlying developing pneumonia. Correlate clinically. EKG showed atrial fibrillation with rapid ventricular rate. CTA of the chest revealed no evidence of pulmonary embolism. Progression of metastatic disease compared to 07/13/2024. Increasing size and number of pulmonary nodules. The largest nodule in the left upper lung measuring up to 21 mm. Additionally in the mediastinum demonstrates multiple lymph nodes which are slightly more prominent and increased compared to 07/13/2024. These are under 10 mm in short axis. Mild pulmonary vascular congestion correlate with serum BNP. Patient was diagnosed with head and neck cancer in April 2024. His symptoms started in October 2023 when he started choking. Patient has undergone chemotherapy and immunotherapy in the last session was on 07/13/2024. Patient had undergone some ENT procedure 2 weeks ago to assess for his cancer. Subsequently his spe ech has got worse. Patient's mentions that his speech always gets worse after the ENT procedure Patient has never smoked tobacco, patient has type 2 diabetes which is controlled, hypertension, hard of hearing Review of Systems All pertinent positive and negative review of systems pinch in the HPI, otherwise unremarkable. Past Medical History Past Medical History: Atrial Fibrillation, Cancer, Diabetes Mellitus, Hyperlipidemia, Myocardial Infarction ([place]) Additional Past Medical History / Comment(s): Spine CA C1/C2, CVA, Last Myocardial Infarction Date:: 2010 History of Any Multi-Drug Resistant Organisms: None Reported Past Surgical History: Joint Replacement Additional Past Surgical History / Comment(s): Peg tube, Past Anesthesia/Blood Transfusion Reactions: No Reported Reaction Past Psychological History: No Psychological Hx Reported Smoking Status: Never smoker Past Alcohol Use History: None Reported Past Drug Use History: None Reported Medications and Allergies Home Medications Medication Instructions Recorded Confirmed Type Apixaban [Eliquis] 5 mg PEG/G-TUBE BID 07/21/24 10/12/24 History Atorvastatin [Lipitor] 20 mg PEG/G-TUBE HS 07/21/24 10/12/24 History HYDROcodone/APAP 10-325MG [[place] 1 tab PEG/G-TUBE QID PRN 07/21/24 10/12/24 History 10-325] Esomeprazole Magnesium [NexIUM] 20 mg PEG/G-TUBE BID PRN 10/12/24 10/12/24 History Furosemide [Lasix] 40 mg PEG/G-TUBE DAILY PRN 10/12/24 10/12/24 History Metoprolol Tartrate [Lopressor] 12.5 mg PEG/G-TUBE BID 10/12/24 10/12/24 History Ondansetron Odt [Zofran Odt] 8 mg PEG/G-TUBE Q8H PRN 10/12/24 10/12/24 History Potassium Chloride Oral Liquid 40 meq PEG/G-TUBE DAILY 10/12/24 10/12/24 History Allergies Allergy/AdvReac Type Severity Reaction Status Date / Time Mushroom Allergy Unknown Verified 10/12/24 19:58 mushroom Allergy Unknown Verified 10/12/24 19:58 Physical Examination - Vital Signs Vital Signs: Vital Signs Temp Pulse Resp BP Pulse Ox 10/14/24 14:00 104 H 16 10/14/24 10:55 97.9 F 104 H 16 100/61 93 L 10/14/24 08:00 97.9 F 110 H 16 117/72 92 L 10/14/24 03:41 97.7 F 105 H 16 96/54 95 10/13/24 23:33 97.4 F L 101 H 16 120/77 93 L 10/13/24 20:00 97.4 F L 105 H 16 99/62 95 Intake and Output 10/14/24 10/14/24 10/14/24 06:59 14:59 22:59 Other: Voiding Method Toilet Toilet Urinal Urinal Weight 65.5 kg Patient is an elderly male, who is laying in the bed, in no acute distress. Patient appears somewhat cachectic. Patient is alert awake oriented to time place and person. He knows it is October 2024 in that he is in the hospital but does not know the name of the hospital. He does not know what city he is in although he knows that he lives in [facility]. Speech is mild to moderately dysarthric and language functions are normal. Patient can name and repeat very well. Attention, concentration is slightly decreased and fund of knowledge is adequate. Detail cognitive function testing deferred. On cranial nerve examination, pupils are equal, round and reacting to light, visual plata are full on confrontation, with no neglect on double simultaneous stimulation. Extraocular muscles are intact with no nystagmus. Face is symmetric, tongue protrudes to the midline. Palatal elevation and sensation normal, hearing is decreased and shoulder shrug normal, facial sensation normal. On muscle strength testing, there is no pronator drift and the strength is normal in arms and legs distally and proximally. Left deltoid not checked because of chronic shoulder issue. Deep tendon reflexes are absent in the arms and legs. Sensory to touch is equal with no neglect on double simultaneous stimulation. Cerebellar function showed no ataxia for [id number] testing. No dysdiadochokinesia. Patient has mild to moderate ataxia for [id number] testing on either side. Tone and bulk of muscles normal. Gait deferred.. On general examination, there is no carotid bruit or murmur, S1-S2 audible. Chest is clear on consultation. Abdomen is soft nontender. No organomegaly, bowel sounds present. Peripheral pulses are present. No peripheral edema. Results - Laboratory Findings CBC and BMP: 10/14/24 06:42 10/14/24 06:42 Abnormal Lab Findings: Abnormal Labs 10/12/24 10/12/24 10/12/24 19:25 19:25 19:30 RBC 3.10 L Hgb 10.7 L Hct 30.7 L MCV 99.0 H MCH 34.5 H Eosinophils # 2.46 H D-Dimer VBG pH VBG HCO3 Sodium 126 L Potassium 5.2 H Chloride 90 L Creatinine 0.53 L Glucose 149 H POC Glucose (mg/dL) 141 H Osmolality Calcium Alkaline Phosphatase 129 H C-Reactive Protein Total Protein 6.0 L Albumin 3.3 L TSH 5.270 H Urine Protein Ur Random Sodium 10/12/24 10/12/24 10/12/24 19:45 21:46 21:46 RBC Hgb Hct MCV MCH Eosinophils # D-Dimer VBG pH 7.42 H VBG HCO3 31 H Sodium Potassium Chloride Creatinine Glucose POC Glucose (mg/dL) Osmolality Calcium Alkaline Phosphatase C-Reactive Protein Total Protein Albumin TSH Urine Protein Trace H Ur Random Sodium 25 L 10/12/24 10/12/24 10/13/24 22:36 22:58 07:53 RBC Hgb Hct MCV MCH Eosinophils # D-Dimer VBG pH VBG HCO3 Sodium 126 L 128 L Potassium Chloride 95 L Creatinine 0.47 L Glucose 126 H POC Glucose (mg/dL) Osmolality 265 L Calcium Alkaline Phosphatase C-Reactive Protein 7.5 H Total Protein 5.5 L Albumin 3.0 L TSH Urine Protein Ur Random Sodium 10/13/24 10/13/24 10/13/24 11:18 11:52 13:49 RBC Hgb Hct MCV MCH Eosinophils # D-Dimer 2.77 H VBG pH VBG HCO3 Sodium 127 L Potassium Chloride Creatinine Glucose POC Glucose (mg/dL) 132 H Osmolality Calcium Alkaline Phosphatase C-Reactive Protein Total Protein Albumin TSH Urine Protein Ur Random Sodium 10/13/24 10/13/24 10/13/24 16:04 19:54 21:20 RBC Hgb Hct MCV MCH Eosinophils # D-Dimer VBG pH VBG HCO3 Sodium 126 L Potassium Chloride Creatinine Glucose POC Glucose (mg/dL) 118 H 138 H Osmolality Calcium Alkaline Phosphatase C-Reactive Protein Total Protein Albumin TSH Urine Protein Ur Random Sodium 10/14/24 10/14/24 10/14/24 00:06 06:03 06:42 RBC 2.67 L Hgb 9.4 L Hct 27.5 L MCV 103.0 H MCH 35.2 H Eosinophils # 2.88 H D-Dimer VBG pH VBG HCO3 Sodium Potassium Chloride Creatinine Glucose POC Glucose (mg/dL) 186 H 144 H Osmolality Calcium Alkaline Phosphatase C-Reactive Protein Total Protein Albumin TSH Urine Protein Ur Random Sodium 10/14/24 10/14/24 06:42 11:29 RBC Hgb Hct MCV MCH Eosinophils # D-Dimer VBG pH VBG HCO3 Sodium 126 L Potassium Chloride 95 L Creatinine 0.37 L Glucose 133 H POC Glucose (mg/dL) 177 H Osmolality Calcium 8.1 L Alkaline Phosphatase C-Reactive Protein Total Protein 5.5 L Albumin 2.8 L TSH Urine Protein Ur Random Sodium Assessment and Plan Assessment: * 74-year-old male with metastatic head and neck cancer, who is admitted for generalized weakness. CT head was abnormal with hypoattenuation in the left cerebellum. Rule out metastatic disease. * Metastatic head and neck cancer * Atrial fibrillation, on Eliquis * Diabetes * Hypertension * Coronary artery disease * Hyperlipidemia * Hard of hearing Plan: * Patient had MRI of the brain performed at outside facility, on 10/11/2024. Although it was not a complete study, but some sequences were completed. We will try to obtain the report of MRI. If normal, then no further workup indicated. However if suspicious for any lesion, patient will undergo a complete MRI of the brain with and without contrast here in [facility]. * Other medical management as per IM, oncology and other specialties on board. * Neurology will follow. Thank you for the consult.
[2024-10-15 00:07] LABS: Glucose,Whole Blood 262 mg/dL (70-110)
[2024-10-15 06:25] LABS: Glucose,Whole Blood 235 mg/dL (70-110)
[2024-10-15 08:05] LABS: Basophils # (A) 0.01 10*3/uL (0.00-0.10); Basophils % (A) 0.2 %; HCT 25.3 % (39.6-50.0); HGB 8.6 g/dL (13.0-17.0); Lymphocytes # (A) 1.16 10*3/uL (0.90-5.00); Lymphocytes % (A) 17.5 %; MCH 34.5 pg (27.0-32.0); MCV 101.6 fL (80.0-97.0); Monocytes # (A) 0.25 10*3/uL (0.20-1.00); Monocytes % (A) 3.8 %; Neutrophils # (A) 5.17 10*3/uL (1.80-7.70); Neutrophils % (A) 78.2 %; Platelet Count 219 10*3/uL (140-440); RBC 2.49 10*6/uL (4.40-5.60); WBC 6.61 10*3/uL (4.50-10.00)
[2024-10-15 08:25] LABS: ALT 12 U/L (4-49); AST 23 U/L (17-59); African American GFR (CKD) >90 (>60 ml/min/1.73 sqM); Alkaline Phosphatase 124 U/L (38-126); Anion Gap 9 mmol/L; Blood Urea Nitrogen 11 mg/dL (9-20); Calcium 8.2 mg/dL (8.4-10.2); Carbon Dioxide 25 mmol/L (22-30); Chloride 97 mmol/L (98-107); Glucose 205 mg/dL (74-99); Non-African American GFR(CKD) >90 (>60 ml/min/1.73 sqM); Potassium 4.2 mmol/L (3.5-5.1); Sodium 131 mmol/L (137-145); Total Bilirubin 0.6 mg/dL (0.2-1.3); Total Protein 5.7 g/dL (6.3-8.2)
--- NOTE | 2024-10-15 10:34 | P.PN ---
Subjective HISTORY OF PRESENT ILLNESS: This is a 74-year-old male with a past medical history significant for neck cancer status post chemotherapy, atrial fibrillation, congestive heart failure, hyperlipidemia and PEG tube insertion. 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 We have been asked to see the patient in consultation for A-fib with RVR. Patient examined at the bedside. Patient is admitted to the hospital secondary to generalized weakness and worsening confusion. Patient was found to be in A-fib with RVR. He was started on IV Cardizem. This morning he remains in atrial fibrillation with a heart rate around 105. He is anticoagulated with Eliquis. Patient denies any chest pain or pressure. Denies any shortness of breath. Vital signs are stable. DIAGNOSTICS: - EKG reveals A-fib with RVR. - Chest xray nodular infiltrate left suprahilar region and right infrahilar region may reflect underlying developing pneumonia - Laboratory data: WBC 9.69. Hemoglobin 9.4. Platelet count 265. Sodium 126. Potassium 4.8. BUN 13. Creatinine 0.37 - Current home cardiac medications include Lasix 40 mg daily, Eliquis 5 mg twice a day, Lipitor 20 mg daily, Toprol tartrate 12.5 mg twice a day. - Most recent echocardiogram obtained in July 2024 revealing ejection fraction 45 to 50%, mild MR, mild TR - Cardiac catheterization history: Unknown 10/15/2024 Patient examined this morning at the bedside. Patient currently denies chest p ain or pressure. He denies shortness of breath. Telemetry reveals atrial fibrillation with a heart rate in the low 100s. PHYSICAL EXAM: VITAL SIGNS: Reviewed. GENERAL: Well-developed in no acute distress. HEENT: Head is normocephalic. Pupils are equal, round. Sclerae anicteric. Mucous membranes of the mouth are moist. Neck supple. No JVD or thyromegaly LUNGS: Respirations even and unlabored. Lungs essentially clear to auscultation bilaterally. HEART: Irregular rate and rhythm. S1 and S2 heard. ABDOMEN: Soft. Nondistended. Nontender. PEG tube noted. EXTREMITIES: Normal range of motion. No clubbing or cyanosis. Peripheral pulses intact. No lower extremity edema NEUROLOGIC: Awake and alert. ASSESSMENT: Generalized weakness Altered mental status Possible pneumonia Persistent atrial fibrillation with RVR History of neck cancer status postchemotherapy Chronic heart failure with mildly reduced EF 45 to 50%, currently euvolemic History of hyperlipidemia History of PEG tube implantation PLAN: No need to repeat echocardiogram as this was performed in July 2024 Continue anticoagulation with Eliquis Increase metoprolol to 50 mg twice a day Continue telemetry monitoring Further recommendations pending patient course Nurse practitioner note has been reviewed by physician. Signing provider agrees with the documented findings, assessment, and plan of care documented by [employer] as a scribe. Objective - Vital Signs Vital signs: Vital Signs Temp 97.4 F L 10/15/24 08:00 Pulse 106 H 10/15/24 08:00 Resp 16 10/15/24 08:00 BP 128/75 10/15/24 08:00 Pulse Ox 94 L 10/15/24 08:00 FiO2 Intake & Output 10/14/24 10/15/24 10/15/24 18:59 06:59 18:59 Weight 81.2 kg Other: Voiding Method Toilet Toilet Urinal Urinal # Voids 1 1 # Bowel Movements 1 1 - Labs CBC & Chem 7: 10/15/24 06:26 10/15/24 06:26 Labs: Abnormal Lab Results - Last 24 Hours (Table) 10/14/24 10/14/24 10/14/24 Range/Units 06:42 11:29 16:34 RBC (4.40-5.60) 10*6/uL Hgb (13.0-17.0) g/dL Hct (39.6-50.0) % MCV (80.0-97.0) fL MCH (27.0-32.0) pg Eosinophils # 2.88 H (0.04-0.35) 10*3/uL Sodium (137-145) mmol/L Chloride (98-107) mmol/L Creatinine (0.66-1.25) mg/dL Glucose (74-99) mg/dL POC Glucose (mg/dL) 177 H 187 H (70-110) mg/dL Calcium (8.4-10.2) mg/dL Total Protein (6.3-8.2) g/dL Albumin (3.5-5.0) g/dL 10/15/24 10/15/24 10/15/24 Range/Units 00:05 06:21 06:26 RBC 2.49 L (4.40-5.60) 10*6/uL Hgb 8.6 L (13.0-17.0) g/dL Hct 25.3 L (39.6-50.0) % MCV 101.6 H (80.0-97.0) fL MCH 34.5 H (27.0-32.0) pg Eosinophils # 0.00 L (0.04-0.35) 10*3/uL Sodium (137-145) mmol/L Chloride (98-107) mmol/L Creatinine (0.66-1.25) mg/dL Glucose (74-99) mg/dL POC Glucose (mg/dL) 262 H 235 H (70-110) mg/dL Calcium (8.4-10.2) mg/dL Total Protein (6.3-8.2) g/dL Albumin (3.5-5.0) g/dL 10/15/24 Range/Units 06:26 RBC (4.40-5.60) 10*6/uL Hgb (13.0-17.0) g/dL Hct (39.6-50.0) % MCV (80.0-97.0) fL MCH (27.0-32.0) pg Eosinophils # (0.04-0.35) 10*3/uL Sodium 131 L (137-145) mmol/L Chloride 97 L (98-107) mmol/L Creatinine 0.34 L (0.66-1.25) mg/dL Glucose 205 H (74-99) mg/dL POC Glucose (mg/dL) (70-110) mg/dL Calcium 8.2 L (8.4-10.2) mg/dL Total Protein 5.7 L (6.3-8.2) g/dL Albumin 3.0 L (3.5-5.0) g/dL Microbiology - Last 24 Hours (Table) 10/12/24 19:25 Blood Culture - Preliminary Blood
[2024-10-15 11:53] LABS: Glucose,Whole Blood 271 mg/dL (70-110)
--- NOTE | 2024-10-15 11:58 | P.PN ---
Subjective Patient is a 74-year-old male past medical history of neck cancer status post chemotherapy who presents for generalized weakness and confusion. Confusion has worsened over the past 2 to 3 days he will stare off and needs multiple prompts to answer questions. Patient's states that he was released from [facility] about 1.5 months ago and has since become progressively weaker. During that time he had PEG tube placed. No recent falls. He is on Eliquis for history of A-fib. Absence of fever, chills, chest pain, palpitations, abdominal pain, dysuria. 10/14/2024. Patient seen and examined at bedside. He is alert and oriented x2. He continues to be on 5 L nasal cannula saturating at 93%. CTA chest without evidence of pulmonary embolism. No new complaints, consult pulmonology for continued hypoxic respiratory failure, will order brain MRI for possible metastasis to brain. Today's labs WBC 9.6, hemoglobin 9.4, MCV 103, sodium 126, creatinine 0.37, ammonia is WNL. 10/15/2024 Patient's hyponatremia improved serum. Sodium is 131. Patient probably is getting excess free water through the PEG tube which will be cut down on IV normal saline will be discontinued. Patient is feeling good with better today less confused. Patient is awaiting MRI. REVIEW OF SYSTEMS: Pertinent positives and negatives noted in HPI. PHYSICAL EXAMINATION: Vitals reviewed GENERAL: Resting comfortably in bed. EYES: PERRL, no scleral injection or icterus. No vision loss HENT: Normocephalic, atraumatic, hearing grossly intact, moist mucous membranes NECK: No tracheal deviation, full range of motion. CARDIOVASCULAR: S1 and S2 present. Irregular rhythm. PULMONARY: Chest is clear to auscultation, no wheezing, rhonchi, or crackles. ABDOMEN: Soft, nontender, nondistended. No palpable organomegaly. PEG tube. MUSCULOSKELETAL: No apparent joint swelling and deformities. EXTREMITIES: No apparent cyanosis, clubbing. No pedal edema. NEUROLOGICAL: Alert and oriented x2. 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 SKIN: No apparent rashes. Assessment and Plan: #Acute encephalopathy, possible ischemic infarct versus lesion pending MRI #Acute hypoxic respiratory failure, less likely pneumonia, secondary to COPD /asthma continue with systemic steroids and additional treatments #Generalized weakness #Eosinophila #Otomastoiditis Afebrile, WBC is WNL, Procalcitonin negative. Begin azithromycin daily MRI brain with and without contrast D-dimer 2.7, CTA chest without evidence of pulmonary embolism Blood, sputum, Legionella culture pending Begin Decadron PT OT consulted Pulmonology consulted ID consulted Neurology consulted # A-fib with RVR Continue Eliquis continue metoprolol 25 twice daily Cardiology stated the patient #Hypovolemic hyponatremia #CHF with systolic dysfunction EF 45 to 50% Hold Lasix Continue IV NS Nephrology consulted Chronic Medical Conditions History of neck cancers/p chemotherapy PEG tube in place, dietitian consulted CAD Resume home medications DVT ppx: Lovenox 40 meq daily Objective - Vital Signs Vital signs: Vital Signs Temp 97.4 F L 10/15/24 08:00 Pulse 106 H 10/15/24 08:00 Resp 16 10/15/24 08:00 BP 128/75 10/15/24 08:00 Pulse Ox 94 L 10/15/24 08:00 FiO2 Intake & Output 10/14/24 10/15/24 10/15/24 18:59 06:59 18:59 Weight 81.2 kg Other: Voiding Method Toilet Toilet Toilet Urinal Urinal Urinal # Voids 1 1 # Bowel Movements 1 1 - Labs CBC & Chem 7: 10/15/24 06:26 10/15/24 06:26 Labs: Abnormal Lab Results - Last 24 Hours (Table) 10/14/24 10/15/24 10/15/24 Range/Units 16:34 00:05 06:21 RBC (4.40-5.60) 10*6/uL Hgb (13.0-17.0) g/dL Hct (39.6-50.0) % MCV (80.0-97.0) fL MCH (27.0-32.0) pg Eosinophils # (0.04-0.35) 10*3/uL Sodium (137-145) mmol/L Chloride (98-107) mmol/L Creatinine (0.66-1.25) mg/dL Glucose (74-99) mg/dL POC Glucose (mg/dL) 187 H 262 H 235 H (70-110) mg/dL Calcium (8.4-10.2) mg/dL Total Protein (6.3-8.2) g/dL Albumin (3.5-5.0) g/dL 10/15/24 10/15/24 10/15/24 Range/Units 06:26 06:26 11:52 RBC 2.49 L (4.40-5.60) 10*6/uL Hgb 8.6 L (13.0-17.0) g/dL Hct 25.3 L (39.6-50.0) % MCV 101.6 H (80.0-97.0) fL MCH 34.5 H (27.0-32.0) pg Eosinophils # 0.00 L (0.04-0.35) 10*3/uL Sodium 131 L (137-145) mmol/L Chloride 97 L (98-107) mmol/L Creatinine 0.34 L (0.66-1.25) mg/dL Glucose 205 H (74-99) mg/dL POC Glucose (mg/dL) 271 H (70-110) mg/dL Calcium 8.2 L (8.4-10.2) mg/dL Total Protein 5.7 L (6.3-8.2) g/dL Albumin 3.0 L (3.5-5.0) g/dL Microbiology - Last 24 Hours (Table) 10/12/24 19:25 Blood Culture - Preliminary Blood
[2024-10-15] MEDS: METOPROLOL TARTRATE 25 MG TAB PO STA (12:05)
--- NOTE | 2024-10-15 12:37 | P.PN ---
Subjective Progress Note Date: 10/15/24 Seen in follow-up for hyponatremia. No new complaints. Feeling better overall. Patient is awake, comfortable, no acute distress Examination of the heart S1 and S2 Examination of the lungs shows bilateral breath sounds are heard Abdomen is soft nontender, PEG tube noted Examination of lower extremity shows no significant edema Objective - Vital Signs Vital signs: Vital Signs Temp 97.4 F L 10/15/24 08:00 Pulse 106 H 10/15/24 08:00 Resp 16 10/15/24 08:00 BP 128/75 10/15/24 08:00 Pulse Ox 94 L 10/15/24 08:00 FiO2 Intake & Output 10/14/24 10/15/24 10/15/24 18:59 06:59 18:59 Weight 81.2 kg Other: Voiding Method Toilet Toilet Urinal Urinal # Voids 1 1 # Bowel Movements 1 1 - Labs CBC & Chem 7: 10/15/24 06:26 10/15/24 06:26 Labs: Abnormal Lab Results - Last 24 Hours (Table) 10/14/24 10/14/24 10/14/24 Range/Units 06:42 11:29 16:34 RBC (4.40-5.60) 10*6/uL Hgb (13.0-17.0) g/dL Hct (39.6-50.0) % MCV (80.0-97.0) fL MCH (27.0-32.0) pg Eosinophils # 2.88 H (0.04-0.35) 10*3/uL Sodium (137-145) mmol/L Chloride (98-107) mmol/L Creatinine (0.66-1.25) mg/dL Glucose (74-99) mg/dL POC Glucose (mg/dL) 177 H 187 H (70-110) mg/dL Calcium (8.4-10.2) mg/dL Total Protein (6.3-8.2) g/dL Albumin (3.5-5.0) g/dL 10/15/24 10/15/24 10/15/24 Range/Units 00:05 06:21 06:26 RBC 2.49 L (4.40-5.60) 10*6/uL Hgb 8.6 L (13.0-17.0) g/dL Hct 25.3 L (39.6-50.0) % MCV 101.6 H (80.0-97.0) fL MCH 34.5 H (27.0-32.0) pg Eosinophils # 0.00 L (0.04-0.35) 10*3/uL Sodium (137-145) mmol/L Chloride (98-107) mmol/L Creatinine (0.66-1.25) mg/dL Glucose (74-99) mg/dL POC Glucose (mg/dL) 262 H 235 H (70-110) mg/dL Calcium (8.4-10.2) mg/dL Total Protein (6.3-8.2) g/dL Albumin (3.5-5.0) g/dL 10/15/24 Range/Units 06:26 RBC (4.40-5.60) 10*6/uL Hgb (13.0-17.0) g/dL Hct (39.6-50.0) % MCV (80.0-97.0) fL MCH (27.0-32.0) pg Eosinophils # (0.04-0.35) 10*3/uL Sodium 131 L (137-145) mmol/L Chloride 97 L (98-107) mmol/L Creatinine 0.34 L (0.66-1.25) mg/dL Glucose 205 H (74-99) mg/dL POC Glucose (mg/dL) (70-110) mg/dL Calcium 8.2 L (8.4-10.2) mg/dL Total Protein 5.7 L (6.3-8.2) g/dL Albumin 3.0 L (3.5-5.0) g/dL Microbiology - Last 24 Hours (Table) 10/12/24 19:25 Blood Culture - Preliminary Blood Assessment and Plan Assessment: 1. Hyponatremia, most likely hypovolemic. Improved with IV fluids in the ER. Patient is hemodynamically stable. Lasix held. Continue with tube feedings with minimum free water. Sodium improved 131 2. History of head and neck cancer status post chemotherapy, status post PEG tube placement about a month ago 3. Chronic A-fib maintained on Eliquis and Lopressor 4. Coronary artery disease with history of NH Plan: Hold Lasix, discontinue IVF Continue tube feedings with minimal free water for now. Repeat labs in a.m. Supportive care
--- NOTE | 2024-10-15 14:08 | P.PN ---
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 He had been treated with Taxol carboplatin and subsequently on Keytruda. He was admitted here back in July 2024 with neutropenic fever and sepsis with acute toxic metabolic enc ephalopathy. He was discharged to home August 23, 2024. In the interim he had been at [facility] approximately 1-1/2 months ago. He did have a PEG tube placed. No other details available at this time. He was brought into the emergency room yesterday with progressive weakness and altered mental status. His states he has been getting weaker and weaker and confused and just staring off into space. CT scan of the brain revealed interval decreased attenuation within the left cerebral hemisphere. This could reflect ischemic insult versus underlying lesion. Left-sided mastoiditis. Chest x-ray shows nodular infiltrate in the left suprahilar region and right infrahilar region. CT angiogram revealed no evidence of pulmonary embolism. There is progression of metastatic disease compared to June 2024. Increasing number of pulmonary nodules. Mediastinum demonstrates multiple lymph nodes which are slightly more prominent and increased compared to June 2024. Mild pulmonary vascular congestion. White count 9.6. Hemoglobin 9.4. Platelets 265. Sodium 126. Potassium 4.8. Bicarb 29. BUN 13. Creatinine 0.37. Glucose 133. He is seen today in consultation on the selective care unit. He is currently awake. He is alert but confused to time and place. Very poor historian. Unable to obtain any significant information. Maintaining good O2 saturations in the 90s on 5 L/min per nasal cannula. He is been afebrile. Slightly tachycardic. No tachypnea. The patient is seen today October 15, 2024 in follow-up on the regular medical floor. He is currently resting in bed. A bit more awake and alert today compared to yesterday. His is at the bedside. He is maintaining O2 saturations in the mid 90s on 5 L/min per nasal cannula. He was afebrile. Hemodynamically stable. Blood culture pending. Sputum culture pending. White count 6.6. Hemoglobin 8.6. Platelets 219. Sodium 131. Potassium 4.2. Bicarb 25. BUN 11. Creatinine 0.34. Glucose 205. He remains on Decadron. Anticoagulated with Eliquis. Objective - Vital Signs Vital signs: Vital Signs Temp 97.4 F L 10/15/24 12:00 Pulse 89 10/15/24 12:00 Resp 16 10/15/24 12:00 BP 111/72 10/15/24 12:00 Pulse Ox 96 10/15/24 12:00 FiO2 Intake & Output 10/14/24 10/15/24 10/15/24 18:59 06:59 18:59 Weight 81.2 kg Other: Voiding Method Toilet Toilet Toilet Urinal Urinal Urinal # Voids 1 1 # Bowel Movements 1 1 - Exam GENERAL EXAM: Alert, frail, slow to respond 74-year-old male, on 5 L nasal cannula, comfortable in no apparent distress. HEAD: Normocephalic. EYES: Normal reaction of pupils, equal size. NOSE: Clear with pink turbinates. THROAT: No erythema or exudates. NECK: No masses, no JVD. CHEST: No chest wall deformity. LUNGS: Equal air entry with few scattered rhonchi. CVS: S1 and S2 normal with no audible murmur, regular rhythm. ABDOMEN: PEG tube exit site clean and dry. No hepatosplenomegaly, normal bowel sounds, no guarding or rigidity. SPINE: No scoliosis or deformity SKIN: No rashes CENTRAL NERVOUS SYSTEM: No focal deficits, tone is normal in all 4 extremities. EXTREMITIES: There is no peripheral edema. No clubbing, no cyanosis. Peripheral pulses are intact. - Labs CBC & Chem 7: 10/15/24 06:26 10/15/24 06:26 Labs: Abnormal Lab Results - Last 24 Hours (Table) 10/14/24 10/15/24 10/15/24 Range/Units 16:34 00:05 06:21 RBC (4.40-5.60) 10*6/uL Hgb (13.0-17.0) g/dL Hct (39.6-50.0) % MCV (80.0-97.0) fL MCH (27.0-32.0) pg Eosinophils # (0.04-0.35) 10*3/uL Sodium (137-145) mmol/L Chloride (98-107) mmol/L Creatinine (0.66-1.25) mg/dL Glucose (74-99) mg/dL POC Glucose (mg/dL) 187 H 262 H 235 H (70-110) mg/dL Calcium (8.4-10.2) mg/dL Total Protein (6.3-8.2) g/dL Albumin (3.5-5.0) g/dL 10/15/24 10/15/24 10/15/24 Range/Units 06:26 06:26 11:52 RBC 2.49 L (4.40-5.60) 10*6/uL Hgb 8.6 L (13.0-17.0) g/dL Hct 25.3 L (39.6-50.0) % MCV 101.6 H (80.0-97.0) fL MCH 34.5 H (27.0-32.0) pg Eosinophils # 0.00 L (0.04-0.35) 10*3/uL Sodium 131 L (137-145) mmol/L Chloride 97 L (98-107) mmol/L Creatinine 0.34 L (0.66-1.25) mg/dL Glucose 205 H (74-99) mg/dL POC Glucose (mg/dL) 271 H (70-110) mg/dL Calcium 8.2 L (8.4-10.2) mg/dL Total Protein 5.7 L (6.3-8.2) g/dL Albumin 3.0 L (3.5-5.0) g/dL Microbiology - Last 24 Hours (Table) 10/12/24 19:25 Blood Culture - Preliminary Blood Assessment and Plan Assessment: Acute hypoxic respiratory failure secondary to progression of metastatic head and neck cancer. Chest x-ray shows nodular infiltrate in the left suprahilar region and right infrahilar region. CT angiogram revealed no evidence of pulmonary embolism. There is progression of metastatic disease compared to June 2024. Increasing number of pulmonary nodules. Mediastinum demonstrates multiple lymph nodes which are slightly more prominent and increased compared to June 2024. Mild pulmonary vascular congestion. Altered mental status secondary to above. CT scan of the brain revealed interval decreased attenuation within the left cerebral hemisphere. This could reflect ischemic insult versus underlying lesion. Left-sided mastoiditis History of metastatic head and neck cancer diagnosed back in April 2024. He initially had been on Taxol, carboplatin and Keytruda Progressive weakness and debility secondary to above Prolonged hospitalization at [facility] due to sepsis and pneumonia in August/September 2024 History of neutropenic fever with severe sepsis back in July 2024 treated here History of dysphagia secondary to above, PEG tube placed History of diabetes mellitus, type II History of chronic atrial fibrillation maintained on Eliquis Hyperlipidemia Non smoker Poor overall functional performance based on the above-mentioned multiple comorbidities Plan: The patient was seen and evaluated More awake and alert today Labs and medications reviewed Doubt pneumonia, most likely metastasis Procalcitonin negative Continued on Eliquis Continued on Decadron Prognosis is guarded We will continue to follow I have personally seen and examined the patient, performed the documentation and the assessment and plan as written. Number of minutes spent on the visit: 10 Dictation was produced using [employer] dictation software. Please excuse any grammatical, word or spelling errors.
--- NOTE | 2024-10-15 16:58 | P.PN ---
Subjective Progress Note Date: 10/14/24 Principal diagnosis: Reason for follow-up is abnormal x-ray and question of pneumonia Patient is a 74-year-old male with a past medical history significant for diabetes mellitus atrial fibrillation hyperlipidemia [place], neck cancer status post chemotherapy, presenting to the hospital for evaluation of generalized weakness and confusion, patient did have a chest x-ray concerning for possible left suprahilar and right infrahilar infiltrate concerning for pneumonia however subsequent repeated have CT angiogram of the chest that was negative for PE and did shows progressive metastatic disease without any consolidation. On today's evaluation that is 10/14/2024, patient has been afebrile, patient is breathing comfortably and is currently on 5 L nasal cannula oxygen, patient denies having any chest pain or any worsening cough, patient denies nausea vomiting or diarrhea and no abdominal pain. Patient did have white count of 9.69 creatinine 0.37 Objective - Vital Signs Vital signs: Vital Signs Temp 97.9 F 10/14/24 10:55 Pulse 104 H 10/14/24 10:55 Resp 16 10/14/24 10:55 BP 100/61 10/14/24 10:55 Pulse Ox 93 L 10/14/24 10:55 FiO2 Intake & Output 10/13/24 10/14/24 10/14/24 18:59 06:59 18:59 Intake Total 85.167 Balance 85.167 Weight 81.193 kg 65.5 kg Intake: Intake, IV Titration 85.167 Amount Diltiazem 125 mg In 85.167 Dextrose 5% in Water 100 ml @ 5 MG/HR 5 mls/hr IV .Q24H [facility] Rx#:[id number] Oral 0 Other: Voiding Method Toilet Toilet Toilet Urinal Urinal Urinal - Exam GENERAL DESCRIPTION: An elderly male lying in bed in no distress RESPIRATORY SYSTEM: Unlabored breathing , decreased breath sounds at bases HEART: S1 S2 regular rate and rhythm , ABDOMEN: Soft , no tenderness EXTREMITIES: No edema feet - Labs CBC & Chem 7: 10/15/24 06:26 10/15/24 06:26 Labs: Abnormal Lab Results - Last 24 Hours (Table) 10/13/24 10/13/24 10/13/24 Range/Units 16:04 19:54 21:20 RBC (4.40-5.60) 10*6/uL Hgb (13.0-17.0) g/dL Hct (39.6-50.0) % MCV (80.0-97.0) fL MCH (27.0-32.0) pg Eosinophils # (0.04-0.35) 10*3/uL Sodium 126 L (137-145) mmol/L Chloride (98-107) mmol/L Creatinine (0.66-1.25) mg/dL Glucose (74-99) mg/dL POC Glucose (mg/dL) 118 H 138 H (70-110) mg/dL Calcium (8.4-10.2) mg/dL Total Protein (6.3-8.2) g/dL Albumin (3.5-5.0) g/dL 10/14/24 10/14/24 10/14/24 Range/Units 00:06 06:03 06:42 RBC 2.67 L (4.40-5.60) 10*6/uL Hgb 9.4 L (13.0-17.0) g/dL Hct 27.5 L (39.6-50.0) % MCV 103.0 H (80.0-97.0) fL MCH 35.2 H (27.0-32.0) pg Eosinophils # 2.88 H (0.04-0.35) 10*3/uL Sodium (137-145) mmol/L Chloride (98-107) mmol/L Creatinine (0.66-1.25) mg/dL Glucose (74-99) mg/dL POC Glucose (mg/dL) 186 H 144 H (70-110) mg/dL Calcium (8.4-10.2) mg/dL Total Protein (6.3-8.2) g/dL Albumin (3.5-5.0) g/dL 10/14/24 10/14/24 Range/Units 06:42 11:29 RBC (4.40-5.60) 10*6/uL Hgb (13.0-17.0) g/dL Hct (39.6-50.0) % MCV (80.0-97.0) fL MCH (27.0-32.0) pg Eosinophils # (0.04-0.35) 10*3/uL Sodium 126 L (137-145) mmol/L Chloride 95 L (98-107) mmol/L Creatinine 0.37 L (0.66-1.25) mg/dL Glucose 133 H (74-99) mg/dL POC Glucose (mg/dL) 177 H (70-110) mg/dL Calcium 8.1 L (8.4-10.2) mg/dL Total Protein 5.5 L (6.3-8.2) g/dL Albumin 2.8 L (3.5-5.0) g/dL Microbiology - Last 24 Hours (Table) 10/13/24 19:00 Gram Stain - Preliminary Sputum 10/12/24 19:25 Blood Culture - Preliminary Blood Assessment and Plan (1) Abnormal chest x-ray Current Visit: Yes Status: Acute Code(s): R93.89 - ABNORMAL FINDINGS ON DX IMAGING OF OTH BODY STRUCTURES SNOMED Code(s): 438331854 (2) Pneumonia Current Visit: No Status: Acute Priority: High Code(s): J18.9 - PNEUMONIA, UNSPECIFIED ORGANISM SNOMED Code(s): 650172643 Plan: 1patient presented to hospital with progressive weakness in this patient who did have a history of head and neck cancer has been on chemotherapy now with evidence of abnormality seen on the chest x-ray with a question of possible metastatic disease clinically not behaving as pneumonia in this patient currently with no fever elevated white count other etiologies could be PE [address] of the chest did not show any consolidation with worsening metastatic disease patient did have a normal procalcitonin level 3no need for antibiotic therapy at this point Dictation was produced using [employer] dictation software. please excuse any grammatical, word or spelling errors. Time with Patient: Less than 30
--- NOTE | 2024-10-15 16:59 | P.PN ---
Subjective Progress Note Date: 10/15/24 Principal diagnosis: Reason for follow-up is abnormal x-ray and question of pneumonia Patient is a 74-year-old male with a past medical history significant for diabetes mellitus atrial fibrillation hyperlipidemia [place], neck cancer status post chemotherapy, presenting to the hospital for evaluation of generalized weakness and confusion, patient did have a chest x-ray concerning for possible left suprahilar and right infrahilar infiltrate concerning for pneumonia however subsequent repeated have CT angiogram of the chest that was negative for PE and did shows progressive metastatic disease without any consolidation. On today's evaluation that is 10/15/2024, Patient is afebrile this morning patient denies having any chest pain shortness of breath or any worsening cough, the patient is currently on room air, patient denies any abdominal pain no diarrhea no nausea no vomiting. Patient did have a creatinine of 0.34 with a white count of 6.61 sputum is growing Corynebacterium stratum Pro-Holden was less than 0.20 Objective - Vital Signs Vital signs: Vital Signs Temp 97.5 F L 10/15/24 16:00 Pulse 92 10/15/24 16:00 Resp 16 10/15/24 16:00 BP 129/77 10/15/24 16:00 Pulse Ox 95 10/15/24 16:00 FiO2 Intake & Output 10/14/24 10/15/24 10/15/24 18:59 06:59 18:59 Weight 81.2 kg Other: Voiding Method Toilet Toilet Toilet Urinal Urinal Urinal # Voids 1 1 # Bowel Movements 1 1 - Exam GENERAL DESCRIPTION: An elderly male lying in bed in no distress RESPIRATORY SYSTEM: Unlabored breathing , decreased breath sounds at bases HEART: S1 S2 regular rate and rhythm , ABDOMEN: Soft , no tenderness EXTREMITIES: No edema feet - Labs CBC & Chem 7: 10/15/24 06:26 10/15/24 06:26 Labs: Abnormal Lab Results - Last 24 Hours (Table) 10/15/24 10/15/24 10/15/24 Range/Units 00:05 06:21 06:26 RBC 2.49 L (4.40-5.60) 10*6/uL Hgb 8.6 L (13.0-17.0) g/dL Hct 25.3 L (39.6-50.0) % MCV 101.6 H (80.0-97.0) fL MCH 34.5 H (27.0-32.0) pg Eosinophils # 0.00 L (0.04-0.35) 10*3/uL Sodium (137-145) mmol/L Chloride (98-107) mmol/L Creatinine (0.66-1.25) mg/dL Glucose (74-99) mg/dL POC Glucose (mg/dL) 262 H 235 H (70-110) mg/dL Calcium (8.4-10.2) mg/dL Total Protein (6.3-8.2) g/dL Albumin (3.5-5.0) g/dL 10/15/24 10/15/24 Range/Units 06:26 11:52 RBC (4.40-5.60) 10*6/uL Hgb (13.0-17.0) g/dL Hct (39.6-50.0) % MCV (80.0-97.0) fL MCH (27.0-32.0) pg Eosinophils # (0.04-0.35) 10*3/uL Sodium 131 L (137-145) mmol/L Chloride 97 L (98-107) mmol/L Creatinine 0.34 L (0.66-1.25) mg/dL Glucose 205 H (74-99) mg/dL POC Glucose (mg/dL) 271 H (70-110) mg/dL Calcium 8.2 L (8.4-10.2) mg/dL Total Protein 5.7 L (6.3-8.2) g/dL Albumin 3.0 L (3.5-5.0) g/dL Microbiology - Last 24 Hours (Table) 10/13/24 19:00 Gram Stain - Preliminary Sputum Sputum Culture - Preliminary Corynebacterium striatum group 10/12/24 19:25 Blood Culture - Preliminary Blood Assessment and Plan (1) Abnormal chest x-ray Current Visit: Yes Status: Acute Code(s): R93.89 - ABNORMAL FINDINGS ON DX IMAGING OF OTH BODY STRUCTURES SNOMED Code(s): 203223620 (2) Pneumonia Current Visit: No Status: Acute Priority: High Code(s): J18.9 - PNEUMONIA, UNSPECIFIED ORGANISM SNOMED Code(s): 086802874 Plan: 1patient presented to hospital with progressive weakness in this patient who did have a history of head and neck cancer has been on chemotherapy now with evidence of abnormality seen on the chest x-ray with a question of possible metastatic disease clinically not behaving as pneumonia in this patient currently with no fever elevated white count other etiologies could be PE [address] of the chest did not show any consolidation with worsening metastatic disease 3patient blood culture has been negative sputum is growing Corynebacterium stratum however the patient did have normal procalcitonin and CT did not show any consolidation we will monitor him patient closely off antibiotic Dictation was produced using [employer] dictation software. please excuse any grammatical, word or spelling errors. Time with Patient: Less than 30
[2024-10-15 17:47] LABS: Glucose,Whole Blood 234 mg/dL (70-110)
[2024-10-15] MEDS: METOPROLOL TARTRATE 50 MG TAB PO SCH (20:37)
[2024-10-15 23:22] LABS: Glucose,Whole Blood 282 mg/dL (70-110)
--- NOTE | 2024-10-16 02:44 | P.PN ---
Subjective Progress Note Date: 10/15/24 Agent was seen for follow-up. Patient is laying in the bed, feels much better. Talking better. No new concerns. Also spoke to patient's . Objective - Vital Signs Vital signs: Vital Signs Temp 97.4 F L 10/15/24 12:00 Pulse 89 10/15/24 14:00 Resp 16 10/15/24 14:00 BP 111/72 10/15/24 12:00 Pulse Ox 96 10/15/24 12:00 FiO2 Intake & Output 10/14/24 10/15/24 10/15/24 18:59 06:59 18:59 Weight 81.2 kg Other: Voiding Method Toilet Toilet Toilet Urinal Urinal Urinal # Voids 1 1 # Bowel Movements 1 1 - Exam Patient is very much alert and awake. He is less encephalopathic. Speech is still poor/dysarthric. No new concerns. - Labs CBC & Chem 7: 10/15/24 06:26 10/15/24 06:26 Labs: Abnormal Lab Results - Last 24 Hours (Table) 10/14/24 10/15/24 10/15/24 Range/Units 16:34 00:05 06:21 RBC (4.40-5.60) 10*6/uL Hgb (13.0-17.0) g/dL Hct (39.6-50.0) % MCV (80.0-97.0) fL MCH (27.0-32.0) pg Eosinophils # (0.04-0.35) 10*3/uL Sodium (137-145) mmol/L Chloride (98-107) mmol/L Creatinine (0.66-1.25) mg/dL Glucose (74-99) mg/dL POC Glucose (mg/dL) 187 H 262 H 235 H (70-110) mg/dL Calcium (8.4-10.2) mg/dL Total Protein (6.3-8.2) g/dL Albumin (3.5-5.0) g/dL 10/15/24 10/15/24 10/15/24 Range/Units 06:26 06:26 11:52 RBC 2.49 L (4.40-5.60) 10*6/uL Hgb 8.6 L (13.0-17.0) g/dL Hct 25.3 L (39.6-50.0) % MCV 101.6 H (80.0-97.0) fL MCH 34.5 H (27.0-32.0) pg Eosinophils # 0.00 L (0.04-0.35) 10*3/uL Sodium 131 L (137-145) mmol/L Chloride 97 L (98-107) mmol/L Creatinine 0.34 L (0.66-1.25) mg/dL Glucose 205 H (74-99) mg/dL POC Glucose (mg/dL) 271 H (70-110) mg/dL Calcium 8.2 L (8.4-10.2) mg/dL Total Protein 5.7 L (6.3-8.2) g/dL Albumin 3.0 L (3.5-5.0) g/dL Microbiology - Last 24 Hours (Table) 10/12/24 19:25 Blood Culture - Preliminary Blood Assessment and Plan Assessment: * 74-year-old male with metastatic head and neck cancer, who is admitted for generalized weakness. CT head was abnormal with hypoattenuation in the left cerebellum. Rule out metastatic disease. * Metastatic head and neck cancer * Atrial fibrillation, on Eliquis * Diabetes * Hypertension * Coronary artery disease * Hyperlipidemia * Hard of hearing Plan: * Patient had MRI of the brain performed at outside facility, on 10/11/2024. Although it was not a complete study, but some sequences were completed. We will try to obtain the report of MRI. If normal, then no further workup indicated. However if suspicious for any lesion, patient will undergo a complete MRI of the brain with and without contrast here in [facility]. * Patient has possible pneumonia, ID following. Patient is off antibiotics at this time. * Other medical management as per IM, oncology and other specialties on board. * Dr. Partha Lozada to resume neurology service in the morning.
[2024-10-16 06:00] LABS: Glucose,Whole Blood 265 mg/dL (70-110)
[2024-10-16 06:59] LABS: African American GFR (CKD) >90 (>60 ml/min/1.73 sqM); Anion Gap 11 mmol/L; Blood Urea Nitrogen 15 mg/dL (9-20); Calcium 8.8 mg/dL (8.4-10.2); Carbon Dioxide 25 mmol/L (22-30); Chloride 97 mmol/L (98-107); Glucose 205 mg/dL (74-99); Magnesium 1.9 mg/dL (1.6-2.3); Non-African American GFR(CKD) >90 (>60 ml/min/1.73 sqM); Potassium 4.3 mmol/L (3.5-5.1); Sodium 133 mmol/L (137-145)
[2024-10-16 07:01] LABS: Basophils # (A) 0.02 10*3/uL (0.00-0.10); Basophils % (A) 0.2 %; HCT 25.9 % (39.6-50.0); HGB 8.8 g/dL (13.0-17.0); Lymphocytes % (A) 12.5 %; MCH 34.9 pg (27.0-32.0); MCV 102.8 fL (80.0-97.0); Mean Platelet Volume 10.5 fL (9.5-12.2); Monocytes % (A) 4.4 %; Neutrophils # (A) 9.22 10*3/uL (1.80-7.70); Platelet Count 271 10*3/uL (140-440); RBC 2.52 10*6/uL (4.40-5.60); RDW 15.3 % (11.5-14.5); WBC 11.24 10*3/uL (4.50-10.00)
[2024-10-16] MEDS: LORazepam 1 MG/0.5 ML VIAL IV PRN (09:36)
--- NOTE | 2024-10-16 10:18 | P.PN ---
Subjective Patient is seen in follow-up for hyponatremia. Sodium level improving. Receiving IV fluids. Receiving tube feeds. Vital signs are stable. General: No acute distress. HEENT: Head exam is unremarkable. LUNGS: No audible rhonchi or wheezes. HEART: Rate and Rhythm are regular. ABDOMEN: Nontender. EXTREMITITES: No edema. Objective - Vital Signs Vital signs: Vital Signs Temp 97.8 F 10/16/24 09:08 Pulse 106 H 10/16/24 09:13 Resp 20 10/16/24 09:13 BP 121/79 10/16/24 09:08 Pulse Ox 96 10/16/24 09:08 FiO2 Intake & Output 10/15/24 10/16/24 10/16/24 18:59 06:59 18:59 Intake Total 10 Output Total 300 Balance -290 Weight 78.5 kg Intake: IV 10 Invasive Line 3 10 Output: Urine 300 Other: Voiding Method Toilet Toilet Toilet Urinal Urinal Urinal # Voids 1 1 # Bowel Movements 1 2 - Labs CBC & Chem 7: 10/16/24 05:49 10/16/24 05:49 Labs: Abnormal Lab Results - Last 24 Hours (Table) 10/15/24 10/15/24 10/15/24 Range/Units 11:52 17:46 23:20 WBC (4.50-10.00) 10*3/uL RBC (4.40-5.60) 10*6/uL Hgb (13.0-17.0) g/dL Hct (39.6-50.0) % MCV (80.0-97.0) fL MCH (27.0-32.0) pg Immature Gran # (0.00-0.04) 10*3/uL Neutrophils # (1.80-7.70) 10*3/uL Eosinophils # (0.04-0.35) 10*3/uL Sodium (137-145) mmol/L Chloride (98-107) mmol/L Creatinine (0.66-1.25) mg/dL Glucose (74-99) mg/dL POC Glucose (mg/dL) 271 H 234 H 282 H (70-110) mg/dL 10/16/24 10/16/24 10/16/24 Range/Units 05:49 05:49 05:59 WBC 11.24 H (4.50-10.00) 10*3/uL RBC 2.52 L (4.40-5.60) 10*6/uL Hgb 8.8 L (13.0-17.0) g/dL Hct 25.9 L (39.6-50.0) % MCV 102.8 H (80.0-97.0) fL MCH 34.9 H (27.0-32.0) pg Immature Gran # 0.10 H (0.00-0.04) 10*3/uL Neutrophils # 9.22 H (1.80-7.70) 10*3/uL Eosinophils # 0.00 L (0.04-0.35) 10*3/uL Sodium 133 L (137-145) mmol/L Chloride 97 L (98-107) mmol/L Creatinine 0.39 L (0.66-1.25) mg/dL Glucose 205 H (74-99) mg/dL POC Glucose (mg/dL) 265 H (70-110) mg/dL Microbiology - Last 24 Hours (Table) 10/12/24 19:25 Blood Culture - Preliminary Blood 10/13/24 19:00 Gram Stain - Preliminary Sputum Sputum Culture - Preliminary Corynebacterium striatum group Assessment and Plan Plan: Assessment: 1. Hypovolemic hyponatremia improving with IV fluids. Sodium level 133 today. 2. History of head and neck cancer status postchemotherapy. 3. Dysphagia, receiving PEG tube feeds. 4. Coronary artery disease. 5. A-fib. Plan: Maintain tube feeds with minimal water flushes. Maintain normal saline. Decrease rate to 50 cc an hour.
[2024-10-16 11:39] LABS: Glucose,Whole Blood 167 mg/dL (70-110)
[2024-10-16] MEDS: METOPROLOL TARTRATE 25 MG TAB PO STA (11:44)
[2024-10-16] MEDS: SODIUM CHLORIDE 0.9% 1,000 ML IV SCH (11:44)
--- NOTE | 2024-10-16 14:26 | P.PN ---
Subjective Progress Note Date: 10/16/24 Principal diagnosis: Pneumonia. 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 He had been treated with Taxol carboplatin and subsequently on Keytruda. He was admitted here back in July 2024 with neutropenic fever and sepsis with acute toxic metabolic encephalopathy. He was discharged to home August 23, 2024. In the interim he had been at [facility] approximately 1-1/2 months ago. He did have a PEG tube placed. No other details available at this time. He was brought into the emergency room yesterday with progressive weakness and altered mental status. His states he has been getting weaker and weaker and confused and just staring off into space. CT scan of the brain revealed interval decreased attenuation within the left cerebral hemisphere. This could reflect ischemic insult versus underlying lesion. Left-sided mastoiditis. Chest x-ray shows nodular infiltrate in the left suprahilar region and right infrahilar region. CT angiogram revealed no evidence of pulmonary embolism. There is progression of metastatic disease compared to June 2024. Increasing number of pulmonary nodules. Mediastinum demonstrates multiple lymph nodes which are slightly more prominent and increased compared to June 2024. Mild pulmonary vascular congestion. White count 9.6. Hemoglobin 9.4. Platelets 265. Sodium 126. Potassium 4.8. Bicarb 29. BUN 13. Creatinine 0.37. Glucose 133. He is seen today in consultation on the selective care unit. He is currently awake. He is alert but confused to time and place. Very poor historian. Unable to obtain any significant information. Maintaining good O2 saturations in the 90s on 5 L/min per nasal cannula. He is been afebrile. Slightly tachycardic. No tachypnea. The patient is seen today October 15, 2024 in follow-up on the regular medical floor. He is currently resting in bed. A bit more awake and alert today compared to yesterday. His is at the bedside. He is maintaining O2 saturations in the mid 90s on 5 L/min per nasal cannula. He was afebrile. Hemodynamically stable. Blood culture pending. Sputum culture pending. White count 6.6. Hemoglobin 8.6. Platelets 219. Sodium 131. Potassium 4.2. Bicarb 25. BUN 11. Creatinine 0.34. Glucose 205. He remains on Decadron. Anticoagulated with Eliquis. Progress note dated October 16, 2024. 74-year-old male seen today in room 382. The patient is currently on 3 L of oxygen. He is getting saline at 50 cc an hour, and Jevity at 60 cc an hour. He is currently resting in bed. No acute distress. No respiratory distress. No family members in the room today. Current laboratory data includes a white count 11.2, hemoglobin 8.8, hematocrit 25.9, and a platelet count of 271,000. Sodium 133, potassium 4.3, chlorides 97, CO2 25, BUN 15, creatinine 0.39. Glucose is 167. Calcium 8.8. Magnesium 1.9. Objective - Vital Signs Vital signs: Vital Signs Temp 97.8 F 10/16/24 09:08 Pulse 97 10/16/24 14:00 Resp 20 10/16/24 14:00 BP 132/77 10/16/24 11:41 Pulse Ox 97 10/16/24 11:41 FiO2 Intake & Output 10/15/24 10/16/24 10/16/24 18:59 06:59 18:59 Intake Total 320 Output Total 300 Balance 20 Weight 78.5 kg 78.5 kg Intake: IV 20 Invasive Line 3 20 Tube Feeding 300 Output: Urine 300 Other: Voiding Method Toilet Toilet Toilet Urinal Urinal Urinal # Voids 1 1 # Bowel Movements 1 2 - Exam No acute distress, oriented 3. Currently on 3 L. HEENT examination is grossly unremarkable. Mucous membranes are moist. No oral lesions. Neck supple. Full range of motion. No adenopathy thyromegaly or neck vein distention. Cardiovascular examination reveals regular rhythm rate. S1-S2 normal. No S3 or S4. No discernible murmur noted. Lungs reveal bilateral scattered rhonchi. No wheezes or crackles. Breath sounds equal. Abdomen soft bowel sounds are heard. No masses or tenderness. Extremities are intact. No cyanosis clubbing or edema. Skin is without rash or lesion. Neurologic examination is brief but nonfocal. - Labs CBC & Chem 7: 10/16/24 05:49 10/16/24 05:49 Labs: Abnormal Lab Results - Last 24 Hours (Table) 10/15/24 10/15/24 10/16/24 Range/Units 17:46 23:20 05:49 WBC 11.24 H (4.50-10.00) 10*3/uL RBC 2.52 L (4.40-5.60) 10*6/uL Hgb 8.8 L (13.0-17.0) g/dL Hct 25.9 L (39.6-50.0) % MCV 102.8 H (80.0-97.0) fL MCH 34.9 H (27.0-32.0) pg Immature Gran # 0.10 H (0.00-0.04) 10*3/uL Neutrophils # 9.22 H (1.80-7.70) 10*3/uL Eosinophils # 0.00 L (0.04-0.35) 10*3/uL Sodium (137-145) mmol/L Chloride (98-107) mmol/L Creatinine (0.66-1.25) mg/dL Glucose (74-99) mg/dL POC Glucose (mg/dL) 234 H 282 H (70-110) mg/dL 10/16/24 10/16/24 10/16/24 Range/Units 05:49 05:59 11:35 WBC (4.50-10.00) 10*3/uL RBC (4.40-5.60) 10*6/uL Hgb (13.0-17.0) g/dL Hct (39.6-50.0) % MCV (80.0-97.0) fL MCH (27.0-32.0) pg Immature Gran # (0.00-0.04) 10*3/uL Neutrophils # (1.80-7.70) 10*3/uL Eosinophils # (0.04-0.35) 10*3/uL Sodium 133 L (137-145) mmol/L Chloride 97 L (98-107) mmol/L Creatinine 0.39 L (0.66-1.25) mg/dL Glucose 205 H (74-99) mg/dL POC Glucose (mg/dL) 265 H 167 H (70-110) mg/dL Microbiology - Last 24 Hours (Table) 10/12/24 19:25 Blood Culture - Preliminary Blood 10/13/24 19:00 Gram Stain - Preliminary Sputum Sputum Culture - Preliminary Corynebacterium striatum group Assessment and Plan Assessment: Acute hypoxic respiratory failure secondary to progression of metastatic head and neck cancer. Chest x-ray shows nodular infiltrate in the left suprahilar region and right infrahilar region. CT angiogram revealed no evidence of pulmonary embolism. There is progression of metastatic disease compared to June 2024. Increasing number of pulmonary nodules. Mediastinum demonstrates multiple lymph nodes which are slightly more prominent and increased compared to June 2024. Altered mental status secondary to above. CT scan of the brain revealed interval decreased attenuation within the left cerebral hemisphere. This could reflect ischemic insult versus underlying lesion. Left-sided mastoiditis. History of metastatic head and neck cancer diagnosed back in April 2024. Progressive weakness and debility. Prolonged hospitalization at [facility] due to sepsis and pneumonia in August/September 2024. History of neutropenic fever with severe sepsis, July 2024. History of dysphagia secondary to above, PEG tube placed. History of diabetes mellitus, type II. History of chronic atrial fibrillation. Hyperlipidemia. Non smoker. Poor overall functional performance. Plan: Plan dated October 16, 2024. The patient is seen today in room 382. The patient continues on nasal O2 at 3 L. He is getting saline at 50 cc an hour, and Jevity, tube feeds, at 60 cc an hour. He is a bit more awake and alert. Labs, x-rays, medications are reviewed. We will continue to follow make recommendations along the way. The patient has multiple pulmonary nodules, seen on CT scan. Pneumonia is much less likely as procalcitonin level is negative. We will continue to follow. P rognosis is poor. Dictation was produced using [employer] software. Please excuse any grammatical, word or spelling errors. Time with Patient: Less than 30
--- NOTE | 2024-10-16 14:40 | P.PN ---
Subjective Progress Note Date: 10/16/24 HISTORY OF PRESENT ILLNESS: This is a 74-year-old male with a past medical history significant for neck cancer status post chemotherapy, atrial fibrillation, congestive heart failure, hyperlipidemia and PEG tube insertion. Patient does not follow with a administrative services director. We have been asked to see the patient in consultation for A-fib with RVR. Patient examined at the bedside. Patient is admitted to the hospital secondary to generalized weakness and worsening confusion. Patient was found to be in A-fib with RVR. He was started on IV Cardizem. This morning he remains in atrial fibrillation with a heart rate around 105. He is anticoagulated with Eliquis. Patient denies any chest pain or pressure. Denies any shortness of breath. Vital signs are stable. DIAGNOSTICS: - EKG reveals A-fib with RVR. - Chest xray nodular infiltrate left suprahilar region and right infrahilar region may reflect underlying developing pneumonia - Laboratory data: WBC 9.69. Hemoglobin 9.4. Platelet count 265. Sodium 126. Potassium 4.8. BUN 13. Creatinine 0.37 - Current home cardiac medications include Lasix 40 mg daily, Eliquis 5 mg twice a day, Lipitor 20 mg daily, Toprol tartrate 12.5 mg twice a day. - Most recent echocardiogram obtained in July 2024 revealing ejection fraction 45 to 50%, mild MR, mild TR - Cardiac catheterization history: Unknown 10/15/2024 Patient examined this morning at the bedside. Patient currently denies chest pain or pressure. He denies shortness of breath. Telemetry reveals atrial fibrillation with a heart rate in the low 100s. 10/16 Patient remains in atrial fibrillation. Heart rates in the low 100s, blood pressure 121/79, pulse ox 96% on 3 L nasal cannula. Repeat blood work reveals WBC 11.2, hemoglobin 8.8, creatinine 0.39. Patient is gone for MRI of the brain today. PHYSICAL EXAM: VITAL SIGNS: Reviewed. GENERAL: Well-developed in no acute distress. HEENT: Head is normocephalic. Pupils are equal, round. Sclerae anicteric. Mucous membranes of the mouth are moist. Neck supple. No JVD or thyromegaly LUNGS: Respirations even and unlabored. Lungs essentially clear to auscultation bilaterally. HEART: Irregular rate and rhythm. S1 and S2 heard. ABDOMEN: Soft. Nondistended. Nontender. PEG tube noted. EXTREMITIES: Normal range of motion. No clubbing or cyanosis. Peripheral pulses intact. No lower extremity edema NEUROLOGIC: Awake and alert. ASSESSMENT: Generalized weakness Altered mental status Possible pneumonia Persistent atrial fibrillation with RVR History of neck cancer status postchemotherapy Chronic heart failure with mildly reduced EF 45 to 50%, currently euvolemic History of hyperlipidemia History of PEG tube implantation PLAN: No need to repeat echocardiogram as this was performed in July 2024 Continue anticoagulation with Eliquis Increase Lopressor to 75 mg twice daily, additional 25 mg now Continue telemetry monitoring Further recommendations pending patient course Nurse practitioner note has been reviewed by physician. Signing provider agrees with the documented findings, assessment, and plan of care documented by HOUSEKEEPING ROOM ATTENDANT as a scribe. Objective - Vital Signs Vital signs: Vital Signs Temp 97.8 F 10/16/24 09:08 Pulse 97 10/16/24 14:00 Resp 20 10/16/24 14:00 BP 132/77 10/16/24 11:41 Pulse Ox 97 10/16/24 11:41 FiO2 Intake & Output 10/15/24 10/16/24 10/16/24 18:59 06:59 18:59 Intake Total 320 Output Total 300 Balance 20 Weight 78.5 kg 78.5 kg Intake: IV 20 Invasive Line 3 20 Tube Feeding 300 Output: Urine 300 Other: Voiding Method Toilet Toilet Toilet Urinal Urinal Urinal # Voids 1 1 # Bowel Movements 1 2 - Labs CBC & Chem 7: 10/16/24 05:49 10/16/24 05:49 Labs: Abnormal Lab Results - Last 24 Hours (Table) 10/15/24 10/15/24 10/16/24 Range/Units 17:46 23:20 05:49 WBC 11.24 H (4.50-10.00) 10*3/uL RBC 2.52 L (4.40-5.60) 10*6/uL Hgb 8.8 L (13.0-17.0) g/dL Hct 25.9 L (39.6-50.0) % MCV 102.8 H (80.0-97.0) fL MCH 34.9 H (27.0-32.0) pg Immature Gran # 0.10 H (0.00-0.04) 10*3/uL Neutrophils # 9.22 H (1.80-7.70) 10*3/uL Eosinophils # 0.00 L (0.04-0.35) 10*3/uL Sodium (137-145) mmol/L Chloride (98-107) mmol/L Creatinine (0.66-1.25) mg/dL Glucose (74-99) mg/dL POC Glucose (mg/dL) 234 H 282 H (70-110) mg/dL 10/16/24 10/16/24 10/16/24 Range/Units 05:49 05:59 11:35 WBC (4.50-10.00) 10*3/uL RBC (4.40-5.60) 10*6/uL Hgb (13.0-17.0) g/dL Hct (39.6-50.0) % MCV (80.0-97.0) fL MCH (27.0-32.0) pg Immature Gran # (0.00-0.04) 10*3/uL Neutrophils # (1.80-7.70) 10*3/uL Eosinophils # (0.04-0.35) 10*3/uL Sodium 133 L (137-145) mmol/L Chloride 97 L (98-107) mmol/L Creatinine 0.39 L (0.66-1.25) mg/dL Glucose 205 H (74-99) mg/dL POC Glucose (mg/dL) 265 H 167 H (70-110) mg/dL Microbiology - Last 24 Hours (Table) 10/12/24 19:25 Blood Culture - Preliminary Blood 10/13/24 19:00 Gram Stain - Preliminary Sputum Sputum Culture - Preliminary Corynebacterium striatum group
--- NOTE | 2024-10-16 15:47 | MR ---
EXAMINATION TYPE: MR brain wo/w con DATE OF EXAM: 10/16/2024 10:15 AM COMPARISON: PET CT 07/13/2024 CLINICAL INDICATION: Male, 74 years old with history of encephalopathy, possible ca mets, Head and ne ck cancer, encephalopathy. TECHNIQUE: Multiplanar, multiecho imaging on a 3.0 Kendal magnet is performed through the brain. Stud y is performed within 24 hours of arrival to the hospital.Multiplanar, multiecho imaging on a 3.0 Jane la magnet is performed through the knee. IV Contrast: 7.5 mL Gadobutrol (None, if empty) FINDINGS: The craniovertebral junction is normal. The pituitary is normal. Below the skull base there is a 5.4 x 2.7 cm area of increased signal on inversion recovery. This has thick peripheral enhancement on the post contrast imaging and extends from the torus tubarius to the parotid gland. The cranial caudal dimension this measures at least 6.5 cm. This appears to have some direct extension into the skull base and the left cerebellar pontine angle. On inversion recovery se quences increased signal is present suggesting underlying vasogenic edema. Intracranial extent is gi roximately 2.5 x 1.9 cm, example series 601 image 9. There is poor visualization of flow through the jugular vein at this level. Diffusion-weighted imaging is performed. No abnormal hyperintensity is present to suggest an acute i ntracranial infarct or acute ischemic change. There are scattered punctate areas of hyperintensity on T2 and Inversion Recovery weighted sequences which are non-specific but can be related to microvascular ischemic changes. Ventricles and sulci are appropriate for the patient age. Increased signal is through the left mastoid air cells. Correlate for left mastoiditis. No compression of the fourth ventricle is evident. Suspicious mass effect on the cerebellum is not id entified. Quadrigeminal plate and ambient cisterns are widely patent. There is extensive opacification throughout the ethmoid air cells. Mucosal thickening is through the sphenoid sinuses and maxillary sinuses. There is mucosal thickening right frontal sinus. There is opa cification of left frontal sinus. Correlate for pansinusitis. IMPRESSION: 1. Left parapharyngeal mass appears larger than the PET CT and may has some extension in through the jugular foramen to the cerebellar pontine angle. Vasogenic edema appears to be in the adjacent cereb ellum with some mild mass effect. Poor vascular flow within the left jugular foramen. 2. Pansinusitis. 3. Left mastoiditis. [facility], Workstation: [facility], 10/16/2024 3:45 PM
[2024-10-16 16:49] LABS: Glucose,Whole Blood 257 mg/dL (70-110)
--- NOTE | 2024-10-16 17:25 | P.PN ---
Subjective Progress Note Date: 10/16/24 Patient is a 74-year-old male past medical history of neck cancer status post chemotherapy who presents for generalized weakness and confusion. Confusion has worsened over the past 2 to 3 days he will stare off and needs multiple prompts to answer questions. Patient's states that he was released from [facility] about 1.5 months ago and has since become progressively weaker. During that time he had PEG tube placed. No recent falls. He is on Eliquis for history of A-fib. Absence of fever, chills, chest pain, palpitations, abdominal pain, dysuria. 10/14/2024. Patient seen and examined at bedside. He is alert and oriented x2. He continues to be on 5 L nasal cannula saturating at 93%. CTA chest without evidence of pulmonary embolism. No new complaints, consult pulmonology for c ontinued hypoxic respiratory failure, will order brain MRI for possible metastasis to brain. Today's labs WBC 9.6, hemoglobin 9.4, MCV 103, sodium 126, creatinine 0.37, ammonia is WNL. 10/15/2024 Patient's hyponatremia improved serum. Sodium is 131. Patient probably is getting excess free water through the PEG tube which will be cut down on IV normal saline will be discontinued. Patient is feeling good with better today less confused. Patient is awaiting MRI. 10/16/2024. Patient seen and examined at the bedside. Patient seems to be more confused since yesterday. Continues to be on 3 L of oxygen via nasal cannula. MRI brain is pending. Labs today show WBC 11.24, hemoglobin 8.8, sodium 133, BUN 41 creatinine 0.39, glucose 205. No new imaging. REVIEW OF SYSTEMS: Pertinent positives and negatives noted in HPI. PHYSICAL EXAMINATION: Vitals reviewed GENERAL: Resting comfortably in bed. EYES: PERRL, no scleral injection or icterus. No vision loss HENT: Normocephalic, atraumatic, hearing grossly intact, moist mucous membranes NECK: No tracheal deviation, full range of motion. CARDIOVASCULAR: S1 and S2 present. Irregular rhythm. PULMONARY: Chest is clear to auscultation, no wheezing, rhonchi, or crackles. ABDOMEN: Soft, nontender, nondistended. No palpable organomegaly. PEG tube. MUSCULOSKELETAL: No apparent joint swelling and deformities. EXTREMITIES: No apparent cyanosis, clubbing. No pedal edema. NEUROLOGICAL: Alert and oriented x2. Right hand receiving room clerk weakness. SKIN: No apparent rashes. Assessment and Plan: #Acute encephalopathy, possible ischemic infarct versus lesion pending MRI #Acute hypoxic respiratory failure, less likely pneumonia, secondary to COPD/asthma continue with systemic steroids and additional treatments #Generalized weakness #Eosinophila #Otomastoiditis #Leukocytosis likely reactive to steroid Afebrile, WBC is WNL, Procalcitonin negative. MRI brain with and without contrast is done today with report pending D-dimer 2.7, CTA chest without evidence of pulmonary embolism Sputum culture is positive for Corynebacterium stratum Blood culture report is pending Continue with dexamethasone 4 mg p.o. twice daily PT OT consulted Pulmonology consulted, note reviewed ID consulted, note reviewed Neurology consulted, note reviewed Continue to monitor CBC and BMP #History of head and neck cancer Consult oncology # A-fib with RVR Continue Eliquis Cardiology consulted, note reviewed, Lopressor has been increased 75 mg twice daily #Hypovolemic hyponatremia #CHF with systolic dysfunction EF 45 to 50% Hold Lasix Continue IV NS and water flushes through PEG tube Nephrology consulted, note reviewed Chronic Medical Conditions History of neck cancers/p chemotherapy PEG tube in place, dietitian consulted CAD Resume home medications DVT ppx: Lovenox 40 meq daily Objective - Vital Signs Vital signs: Vital Signs Temp 98.1 F 10/16/24 15:17 Pulse 97 10/16/24 15:17 Resp 20 10/16/24 15:17 BP 119/68 10/16/24 15:17 Pulse Ox 97 10/16/24 15:17 FiO2 Intake & Output 10/15/24 10/16/24 10/16/24 18:59 06:59 18:59 Intake Total 320 Output Total 300 Balance 20 Weight 78.5 kg 78.5 kg Intake: IV 20 Invasive Line 3 20 Tube Feeding 300 Output: Urine 300 Other: Voiding Method Toilet Toilet Toilet Urinal Urinal Urinal # Voids 1 1 # Bowel Movements 1 2 - Labs CBC & Chem 7: 10/16/24 05:49 10/16/24 05:49 Labs: Abnormal Lab Results - Last 24 Hours (Table) 10/15/24 10/15/24 10/16/24 Range/Units 17:46 23:20 05:49 WBC 11.24 H (4.50-10.00) 10*3/uL RBC 2.52 L (4.40-5.60) 10*6/uL Hgb 8.8 L (13.0-17.0) g/dL Hct 25.9 L (39.6-50.0) % MCV 102.8 H (80.0-97.0) fL MCH 34.9 H (27.0-32.0) pg Immature Gran # 0.10 H (0.00-0.04) 10*3/uL Neutrophils # 9.22 H (1.80-7.70) 10*3/uL Eosinophils # 0.00 L (0.04-0.35) 10*3/uL Sodium (137-145) mmol/L Chloride (98-107) mmol/L Creatinine (0.66-1.25) mg/dL Glucose (74-99) mg/dL POC Glucose (mg/dL) 234 H 282 H (70-110) mg/dL 10/16/24 10/16/24 10/16/24 Range/Units 05:49 05:59 11:35 WBC (4.50-10.00) 10*3/uL RBC (4.40-5.60) 10*6/uL Hgb (13.0-17.0) g/dL Hct (39.6-50.0) % MCV (80.0-97.0) fL MCH (27.0-32.0) pg Immature Gran # (0.00-0.04) 10*3/uL Neutrophils # (1.80-7.70) 10*3/uL Eosinophils # (0.04-0.35) 10*3/uL Sodium 133 L (137-145) mmol/L Chloride 97 L (98-107) mmol/L Creatinine 0.39 L (0.66-1.25) mg/dL Glucose 205 H (74-99) mg/dL POC Glucose (mg/dL) 265 H 167 H (70-110) mg/dL 10/16/24 Range/Units 16:39 WBC (4.50-10.00) 10*3/uL RBC (4.40-5.60) 10*6/uL Hgb (13.0-17.0) g/dL Hct (39.6-50.0) % MCV (80.0-97.0) fL MCH (27.0-32.0) pg Immature Gran # (0.00-0.04) 10*3/uL Neutrophils # (1.80-7.70) 10*3/uL Eosinophils # (0.04-0.35) 10*3/uL Sodium (137-145) mmol/L Chloride (98-107) mmol/L Creatinine (0.66-1.25) mg/dL Glucose (74-99) mg/dL POC Glucose (mg/dL) 257 H (70-110) mg/dL Microbiology - Last 24 Hours (Table) 10/13/24 19:00 Gram Stain - Final Sputum Sputum Culture - Final Corynebacterium striatum group 10/12/24 19:25 Blood Culture - Preliminary Blood
[2024-10-16] MEDS: IPRATROPIUM-ALBUTEROL 3 ML NEB INHALATION PRN (20:48)
[2024-10-16] MEDS: METOPROLOL TARTRATE 25 MG TAB PO SCH (21:49)
[2024-10-16 23:31] LABS: Glucose,Whole Blood 339 mg/dL (70-110)
[2024-10-17 06:30] LABS: Glucose,Whole Blood 241 mg/dL (70-110)
[2024-10-17 07:12] LABS: Basophils # (A) 0.01 10*3/uL (0.00-0.10); Basophils % (A) 0.1 %; HCT 24.3 % (39.6-50.0); Lymphocytes # (A) 1.13 10*3/uL (0.90-5.00); MCH 34.5 pg (27.0-32.0); MCHC 32.9 g/dL (32.0-37.0); MCV 104.7 fL (80.0-97.0); Mean Platelet Volume 9.6 fL (9.5-12.2); Monocytes # (A) 0.54 10*3/uL (0.20-1.00); Monocytes % (A) 6.7 %; Neutrophils # (A) 6.29 10*3/uL (1.80-7.70); Neutrophils % (A) 78.1 %; Platelet Count 224 10*3/uL (140-440); RBC 2.32 10*6/uL (4.40-5.60); RDW 15.2 % (11.5-14.5); WBC 8.06 10*3/uL (4.50-10.00)
[2024-10-17 07:33] LABS: African American GFR (CKD) >90 (>60 ml/min/1.73 sqM); Anion Gap 5 mmol/L; Blood Urea Nitrogen 20 mg/dL (9-20); Calcium 8.4 mg/dL (8.4-10.2); Carbon Dioxide 29 mmol/L (22-30); Chloride 102 mmol/L (98-107); Glucose 213 mg/dL (74-99); Non-African American GFR(CKD) >90 (>60 ml/min/1.73 sqM); Potassium 4.4 mmol/L (3.5-5.1); Sodium 136 mmol/L (137-145)
[2024-10-17] MEDS: IPRATROPIUM-ALBUTEROL 3 ML NEB INHALATION SCH (09:37)
--- NOTE | 2024-10-17 10:06 | P.PN ---
Subjective Patient is seen in follow-up for hyponatremia. Sodium level improving. Receiving IV fluids. Receiving tube feeds. Vital signs are stable. General: No acute distress. HEENT: Head exam is unremarkable. LUNGS: No audible rhonchi or wheezes. HEART: Rate and Rhythm are regular. ABDOMEN: Nontender. EXTREMITITES: No edema. Objective - Vital Signs Vital signs: Vital Signs Temp 97.9 F 10/17/24 00:00 Pulse 84 10/17/24 09:49 Resp 22 10/17/24 03:20 BP 136/75 10/17/24 03:20 Pulse Ox 95 10/17/24 03:20 FiO2 Intake & Output 10/16/24 10/17/24 10/17/24 18:59 06:59 18:59 Intake Total 620 320 Output Total 725 Balance -105 320 Weight 78.5 kg 79 kg Intake: IV 20 20 Invasive Line 3 20 20 Tube Feeding 600 300 Output: Urine 725 Other: Voiding Method Toilet Toilet Urinal Urinal # Voids 1 # Bowel Movements 1 - Labs CBC & Chem 7: 10/17/24 06:47 10/17/24 06:47 Labs: Abnormal Lab Results - Last 24 Hours (Table) 10/16/24 10/16/24 10/16/24 Range/Units 11:35 16:39 23:29 RBC (4.40-5.60) 10*6/uL Hgb (13.0-17.0) g/dL Hct (39.6-50.0) % MCV (80.0-97.0) fL MCH (27.0-32.0) pg Immature Gran # (0.00-0.04) 10*3/uL Eosinophils # (0.04-0.35) 10*3/uL Sodium (137-145) mmol/L Creatinine (0.66-1.25) mg/dL Glucose (74-99) mg/dL POC Glucose (mg/dL) 167 H 257 H 339 H (70-110) mg/dL 10/17/24 10/17/24 10/17/24 Range/Units 06:27 06:47 06:47 RBC 2.32 L (4.40-5.60) 10*6/uL Hgb 8.0 L (13.0-17.0) g/dL Hct 24.3 L (39.6-50.0) % MCV 104.7 H (80.0-97.0) fL MCH 34.5 H (27.0-32.0) pg Immature Gran # 0.09 H (0.00-0.04) 10*3/uL Eosinophils # 0.00 L (0.04-0.35) 10*3/uL Sodium 136 L (137-145) mmol/L Creatinine 0.40 L (0.66-1.25) mg/dL Glucose 213 H (74-99) mg/dL POC Glucose (mg/dL) 241 H (70-110) mg/dL Microbiology - Last 24 Hours (Table) 10/13/24 19:00 Gram Stain - Final Sputum Sputum Culture - Final Corynebacterium striatum group Assessment and Plan Plan: Assessment: 1. Hypovolemic hyponatremia improving with IV fluids. Sodium level 136 today. 2. History of head and neck cancer status postchemotherapy. 3. Dysphagia, receiving PEG tube feeds. 4. Coronary artery disease. 5. A-fib. Plan: Maintain tube feeds with minimal water flushes. Hep-Lock IV fluids.
[2024-10-17 11:57] LABS: Glucose,Whole Blood 235 mg/dL (70-110)
--- NOTE | 2024-10-17 11:58 | P.PN ---
Subjective Progress Note Date: 10/17/24 Principal diagnosis: Pneumonia. 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 He had been treated with Taxol carboplatin and subsequently on Keytruda. He was admitted here back in July 2024 with neutropenic fever and sepsis with acute toxic metabolic encephalopathy. He was discharged to home August 23, 2024. In the interim he had been at [facility] approximately 1-1/2 months ago. He did have a PEG tube placed. No other details available at this time. He was brought into the emergency room yesterday with progressive weakness and altered mental status. His states he has been getting weaker and weaker and confused and just staring off into space. CT scan of the brain revealed interval decreased attenuation within the left cerebral hemisphere. This could reflect ischemic insult versus underlying lesion. Left-sided mastoiditis. Chest x-ray shows nodular infiltrate in the left suprahilar region and right infrahilar region. CT angiogram revealed no evidence of pulmonary embolism. There is progression of metastatic disease compared to June 2024. Increasing number of pulmonary nodules. Mediastinum demonstrates multiple lymph nodes which are slightly more prominent and increased compared to June 2024. Mild pulmonary vascular congestion. White count 9.6. Hemoglobin 9.4. Platelets 265. Sodium 126. Potassium 4.8. Bicarb 29. BUN 13. Creatinine 0.37. Glucose 133. He is seen today in consultation on the selective care unit. He is currently awake. He is alert but confused to time and place. Very poor historian. Unable to obtain any significant information. Maintaining good O2 saturations in the 90s on 5 L/min per nasal cannula. He is been afebrile. Slightly tachycardic. No tachypnea. The patient is seen today October 15, 2024 in follow-up on the regular medical floor. He is currently resting in bed. A bit more awake and alert today compared to yesterday. His is at the bedside. He is maintaining O2 saturations in the mid 90s on 5 L/min per nasal cannula. He was afebrile. Hemodynamically stable. Blood culture pending. Sputum culture pending. White count 6.6. Hemoglobin 8.6. Platelets 219. Sodium 131. Potassium 4.2. Bicarb 25. BUN 11. Creatinine 0.34. Glucose 205. He remains on Decadron. Anticoagulated with Eliquis. Progress note dated October 16, 2024. 74-year-old male seen today in room 382. The patient is currently on 3 L of oxygen. He is getting saline at 50 cc an hour, and Jevity at 60 cc an hour. He is currently resting in bed. No acute distress. No respiratory distress. No family members in the room today. Current laboratory data includes a white count 11.2, hemoglobin 8.8, hematocrit 25.9, and a platelet count of 271,000. Sodium 133, potassium 4.3, chlorides 97, CO2 25, BUN 15, creatinine 0.39. Glucose is 167. Calcium 8.8. Magnesium 1.9. Progress note dated October 17, 2024. 74-year-old male seen today in room 382. Currently, the patient is resting comfortably in bed. He is on 3 L of oxygen. He is getting saline at 50 cc an hour. He is also getting Jevity at 60 cc an hour. According to the nurses, the patient had an uneventful night. Current laboratory data includes a white count of 8.1, hemoglobin 8, hematocrit 24.3, and a platelet count of 224,000. Sodium 136, potassium 4.4, chlorides 102, CO2 29, BUN 20, creatinine 0.40. Glucose is 213. Calcium 8.4, magnesium 2.0. Brain CT showed a left parapharyngeal mass, with some extension into the jugular foramen to the cerebellar pontine angle. There is vasogenic edema, in the adjacent cerebellum, with mild mass effect. Poor vascular flow within the left jugular foramen. There is evidence of both pansinusitis, and left mastoiditis. Objective - Vital Signs Vital signs: Vital Signs Temp 98.0 F 10/17/24 08:00 Pulse 84 10/17/24 09:49 Resp 20 10/17/24 08:00 BP 140/75 10/17/24 08:00 Pulse Ox 99 10/17/24 08:00 FiO2 Intake & Output 10/16/24 10/17/24 10/17/24 18:59 06:59 18:59 Intake Total 620 320 10 Output Total 725 Balance -105 320 10 Weight 78.5 kg 79 kg Intake: IV 20 20 10 Invasive Line 3 20 20 10 Tube Feeding 600 300 Output: Urine 725 Other: Voiding Method Toilet Toilet Toilet Urinal Urinal Urinal # Voids 1 # Bowel Movements 1 - Exam No acute distress, oriented 3. Currently on 3 L. HEENT examination is grossly unremarkable. Mucous membranes are moist. No oral lesions. Neck supple. Full range of motion. No adenopathy thyromegaly or neck vein distention. Cardiovascular examination reveals regular rhythm rate. S1-S2 normal. No S3 or S4. No discernible murmur noted. Lungs reveal bilateral scattered rhonchi. No wheezes or crackles. Breath sounds equal. Abdomen soft bowel sounds are heard. No masses or tenderness. Extremities are intact. No cyanosis clubbing or edema. Skin is without rash or lesion. Neurologic examination is brief but nonfocal. - Labs CBC & Chem 7: 10/17/24 06:47 10/17/24 06:47 Labs: Abnormal Lab Results - Last 24 Hours (Table) 10/16/24 10/16/24 10/17/24 Range/Units 16:39 23:29 06:27 RBC (4.40-5.60) 10*6/uL Hgb (13.0-17.0) g/dL Hct (39.6-50.0) % MCV (80.0-97.0) fL MCH (27.0-32.0) pg Immature Gran # (0.00-0.04) 10*3/uL Eosinophils # (0.04-0.35) 10*3/uL Sodium (137-145) mmol/L Creatinine (0.66-1.25) mg/dL Glucose (74-99) mg/dL POC Glucose (mg/dL) 257 H 339 H 241 H (70-110) mg/dL 10/17/24 10/17/24 Range/Units 06:47 06:47 RBC 2.32 L (4.40-5.60) 10*6/uL Hgb 8.0 L (13.0-17.0) g/dL Hct 24.3 L (39.6-50.0) % MCV 104.7 H (80.0-97.0) fL MCH 34.5 H (27.0-32.0) pg Immature Gran # 0.09 H (0.00-0.04) 10*3/uL Eosinophils # 0.00 L (0.04-0.35) 10*3/uL Sodium 136 L (137-145) mmol/L Creatinine 0.40 L (0.66-1.25) mg/dL Glucose 213 H (74-99) mg/dL POC Glucose (mg/dL) (70-110) mg/dL Microbiology - Last 24 Hours (Table) 10/13/24 19:00 Gram Stain - Final Sputum Sputum Culture - Final Corynebacterium striatum group Assessment and Plan Assessment: Acute hypoxic respiratory failure secondary to progression of metastatic head and neck cancer. Chest x-ray shows nodular infiltrate in the left suprahilar re gion and right infrahilar region. CT angiogram revealed no evidence of pulmonary embolism. There is progression of metastatic disease compared to June 2024. Increasing number of pulmonary nodules. Mediastinum demonstrates multiple lymph nodes which are slightly more prominent and increased compared to June 2024. Altered mental status secondary to above. CT scan of the brain revealed interval decreased attenuation within the left cerebral hemisphere. This could reflect ischemic insult versus underlying lesion. Left-sided mastoiditis. History of metastatic head and neck cancer diagnosed back in April 2024. Progressive weakness and debility. Prolonged hospitalization at [facility] due to sepsis and pneumonia in August/September 2024. History of neutropenic fever with severe sepsis, July 2024. History of dysphagia secondary to above, PEG tube placed. History of diabetes mellitus, type II. History of chronic atrial fibrillation. Hyperlipidemia. Non smoker. Poor overall functional performance. Plan: Plan dated October 16, 2024. The patient is seen today in room 382. The patient continues on nasal O2 at 3 L. He is getting saline at 50 cc an hour, and Jevity, tube feeds, at 60 cc an hour. He is a bit more awake and alert. Labs, x-rays, medications are reviewed. We will continue to follow make recommendations along the way. The patient has multiple pulmonary nodules, seen on CT scan. Pneumonia is much less likely as procalcitonin level is negative. We will continue to follow. Prognosis is poor. Dictation was produced using [employer]ation software. Please excuse any grammatical, word or spelling errors. Plan dated October 17, 2024. The patient is seen today in room 282. He remains about the same as he did yesterday. He continues on nasal O2 3 L. He is getting saline at 50 cc an hour. He is also receiving Jevity 60 cc an hour. Labs, x-rays, and medications are reviewed. The patient's overall prognosis remains poor. CODE STATUS should be addressed by the primary service. No additional recommendations are made. Dictation was produced using [employer] dictation software. Please excuse any grammatical, word or spelling errors. Time with Patient: Less than 30
--- NOTE | 2024-10-17 14:12 | P.PN ---
Subjective Progress Note Date: 10/17/24 HISTORY OF PRESENT ILLNESS: This is a 74-year-old male with a past medical history significant for neck cancer status post chemotherapy, atrial fibrillation, congestive heart failure, hyperlipidemia and PEG tube insertion. 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 We have been asked to see the patient in consultation for A-fib with RVR. Patient examined at the bedside. Patient is admitted to the hospital secondary to generalized weakness and worsening confusion. Patient was found to be in A-fib with RVR. He was started on IV Cardizem. This morning he remains in atrial fibrillation with a heart rate around 105. He is anticoagulated with Eliquis. Patient denies any chest pain or pressure. Denies any shortness of breath. Vital signs are stable. DIAGNOSTICS: - EKG reveals A-fib with RVR. - Chest xray nodular infiltrate left suprahilar region and right infrahilar region may reflect underlying developing pneumonia - Laboratory data: WBC 9.69. Hemoglobin 9.4. Platelet count 265. Sodium 126. Potassium 4.8. BUN 13. Creatinine 0.37 - Current home cardiac medications include Lasix 40 mg daily, Eliquis 5 mg twice a day, Lipitor 20 mg daily, Toprol tartrate 12.5 mg twice a day. - Most recent echocardiogram obtained in July 2024 revealing ejection fraction 45 to 50%, mild MR, mild TR - Cardiac catheterization history: Unknown 10/15/2024 Patient examined this morning at the bedside. Patient currently denies chest pain or pressure. He denies shortness of breath. Telemetry reveals atrial fibrillation with a heart rate in the low 100s. 10/16 Patient remains in atrial fibrillation. Heart rates in the low 100s, blood pressure 121/79, pulse ox 96% on 3 L nasal cannula. Repeat blood work reveals WBC 11.2, hemoglobin 8.8, creatinine 0.39. Patient is gone for MRI of the brain today. 10/17 Patient seen and examined. He remains in atrial fibrillation with rate controlled in the 70s, blood pressure 136/75, pulse ox 95% on 3 L nasal cannula. Repeat blood work reveals hemoglobin 8, sodium 136, potassium 4.4, BUN 20 creatinine 0.4. Yesterday we increased Lopressor to 75 mg twice daily with improvement of his heart rate. PHYSICAL EXAM: VITAL SIGNS: Reviewed. GENERAL: Well-developed in no acute distress. HEENT: Head is normocephalic. Pupils are equal, round. Sclerae anicteric. Mucous membranes of the mouth are moist. Neck supple. No JVD or thyromegaly LUNGS: Respirations even and unlabored. Lungs essentially clear to auscultation bilaterally. HEART: Irregular rate and rhythm. S1 and S2 heard. ABDOMEN: Soft. Nondistended. Nontender. PEG tube noted. EXTREMITIES: Normal range of motion. No clubbing or cyanosis. Peripheral pulses intact. No lower extremity edema NEUROLOGIC: Awake and alert. ASSESSMENT: Generalized weakness Altered mental status Possible pneumonia Persistent atrial fibrillation with RVR History of neck cancer status postchemotherapy Chronic heart failure with mildly reduced EF 45 to 50%, currently euvolemic History of hyperlipidemia History of PEG tube implantation PLAN: No need to repeat echocardiogram as this was performed in July 2024 Continue anticoagulation with Eliquis Continue Lopressor 75 mg twice daily No further cardiac workup at this time Cardiology will sign off this case and follow on an as-needed basis. Please reconsult for any new concerns. Patient may follow-up in the office in one to 2 weeks. Nurse practitioner note has been reviewed by physician. Signing provider agrees with the documented findings, assessment, and plan of care documented by COMM[facility] C[facility] DIRECTOR as a scribe. Objective - Vital Signs Vital signs: Vital Signs Temp 97.9 F 10/17/24 00:00 Pulse 84 10/17/24 09:49 Resp 22 10/17/24 03:20 BP 136/75 10/17/24 03:20 Pulse Ox 95 10/17/24 03:20 FiO2 Intake & Output 10/16/24 10/17/24 10/17/24 18:59 06:59 18:59 Intake Total 620 320 Output Total 725 Balance -105 320 Weight 78.5 kg 79 kg Intake: IV 20 20 Invasive Line 3 20 20 Tube Feeding 600 300 Output: Urine 725 Other: Voiding Method Toilet Toilet Urinal Urinal # Voids 1 # Bowel Movements 1 - Labs CBC & Chem 7: 10/17/24 06:47 10/17/24 06:47 Labs: Abnormal Lab Results - Last 24 Hours (Table) 10/16/24 10/16/24 10/16/24 Range/Units 11:35 16:39 23:29 RBC (4.40-5.60) 10*6/uL Hgb (13.0-17.0) g/dL Hct (39.6-50.0) % MCV (80.0-97.0) fL MCH (27.0-32.0) pg Immature Gran # (0.00-0.04) 10*3/uL Eosinophils # (0.04-0.35) 10*3/uL Sodium (137-145) mmol/L Creatinine (0.66-1.25) mg/dL Glucose (74-99) mg/dL POC Glucose (mg/dL) 167 H 257 H 339 H (70-110) mg/dL 10/17/24 10/17/24 10/17/24 Range/Units 06:27 06:47 06:47 RBC 2.32 L (4.40-5.60) 10*6/uL Hgb 8.0 L (13.0-17.0) g/dL Hct 24.3 L (39.6-50.0) % MCV 104.7 H (80.0-97.0) fL MCH 34.5 H (27.0-32.0) pg Immature Gran # 0.09 H (0.00-0.04) 10*3/uL Eosinophils # 0.00 L (0.04-0.35) 10*3/uL Sodium 136 L (137-145) mmol/L Creatinine 0.40 L (0.66-1.25) mg/dL Glucose 213 H (74-99) mg/dL POC Glucose (mg/dL) 241 H (70-110) mg/dL Microbiology - Last 24 Hours (Table) 10/13/24 19:00 Gram Stain - Final Sputum Sputum Culture - Final Corynebacterium striatum group
[2024-10-17] MEDS: NYSTATIN 100,000 UNIT/ML SUSP 500,000 UNIT/5 ML CUP PO SCH (15:50)
[2024-10-17] MEDS: dexAMETHasone 2 MG TAB PO SCH (15:51)
--- NOTE | 2024-10-17 15:54 | P.PN ---
Subjective Progress Note Date: 10/17/24 Patient is a 74-year-old male past medical history of neck cancer status post chemotherapy who presents for generalized weakness and confusion. Confusion has worsened over the past 2 to 3 days he will stare off and needs multiple prompts to answer questions. Patient's states that he was released from [facility] about 1.5 months ago and has since become progressively weaker. During that time he had PEG tube placed. No recent falls. He is on Eliquis for history of A-fib. Absence of fever, chills, chest pain, palpitations, abdominal pain, dysuria. 10/14/2024. Patient seen and examined at bedside. He is alert and oriented x2. He continues to be on 5 L nasal cannula saturating at 93%. CTA chest without evidence of pulmonary embolism. No new complaints, consult pulmonology for c ontinued hypoxic respiratory failure, will order brain MRI for possible metastasis to brain. Today's labs WBC 9.6, hemoglobin 9.4, MCV 103, sodium 126, creatinine 0.37, ammonia is WNL. 10/15/2024 Patient's hyponatremia improved serum. Sodium is 131. Patient probably is getting excess free water through the PEG tube which will be cut down on IV normal saline will be discontinued. Patient is feeling good with better today less confused. Patient is awaiting MRI. 10/16/2024. Patient seen and examined at the bedside. Patient seems to be more confused since yesterday. Continues to be on 3 L of oxygen via nasal cannula. MRI brain is pending. Labs today show WBC 11.24, hemoglobin 8.8, sodium 133, BUN 41 creatinine 0.39, glucose 205. No new imaging. 10/17/2024 Patient seen and examined at the bedside. Patient seems to be more alert and oriented compared to yesterday. He is AAO x 3. Continues to be on 3 L oxygen via nasal cannula. MRI of the brain done yesterday shows enlarging left p arapharyngeal mass with extension through the jugular foramen to the cerebral pontine angle. There is also vasogenic edema in the adjacent cerebellum with some mild mass effect and poor vascular flow within the left jugular foramen. Oncology team has been consulted. In the meantime patient continues to be on dexamethasone 4 mg p.o. every 6 hour. Lab work today shows WBC 8.06, hemoglobin 8.0, sodium 136, potassium 4.4, BUN 20, creatinine 0.4, calcium 8.4, magnesium 2.0. Patient is getting enteral feeds through PEG tube with Jevity with a rate of 60 cc/h. REVIEW OF SYSTEMS: Pertinent positives and negatives noted in HPI. PHYSICAL EXAMINATION: Vitals reviewed GENERAL: Resting comfortably in bed. EYES: PERRL, no scleral injection or icterus. No vision loss HENT: Normocephalic, atraumatic, hearing grossly intact, moist mucous membranes NECK: No tracheal deviation, full range of motion. CARDIOVASCULAR: S1 and S2 present. Irregular rhythm. PULMONARY: Chest is clear to auscultation, no wheezing, rhonchi, or crackles. ABDOMEN: Soft, nontender, nondistended. No palpable organomegaly. PEG tube. MUSCULOSKELETAL: No apparent joint swelling and deformities. EXTREMITIES: No apparent cyanosis, clubbing. No pedal edema. NEUROLOGICAL: Alert and oriented x2. 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 SKIN: No apparent rashes. Assessment and Plan: #Acute encephalopathy, likely secondary to enlarging left pharyngeal mass with extension into the cerebellum #Acute hypoxic respiratory failure, less likely pneumonia, secondary to COPD/asthma continue with systemic steroids and additional treatments #Generalized weakness #Eosinophila #Otomastoiditis #Leukocytosis likely reactive to steroid, resolved Afebrile, WBC is WNL, Procalcitonin negative. MRI brain with and without contrast with findings discussed above D-dimer 2.7, CTA chest without evidence of pulmonary embolism Sputum culture is positive for Corynebacterium stratum Blood culture report is pending Continue with dexamethasone 4 mg p.o. every 6 hour PT OT consulted Pulmonology consulted, note reviewed ID consulted, note reviewed Neurology consulted, note reviewed Continue to monitor CBC and BMP #History of head and neck cancer Consult oncology # A-fib with RVR Continue Eliquis Cardiology consulted, note reviewed, Lopressor to be continued at 75 mg twice daily Cardiology signed off #Hypovolemic hyponatremia #CHF with systolic dysfunction EF 45 to 50% Hold Lasix Continue IV NS and water flushes through PEG tube Nephrology consulted, note reviewed Chronic Medical Conditions History of neck cancers/p chemotherapy PEG tube in place, dietitian consulted CAD Resume home medications DVT ppx: Lovenox 40 meq daily Objective - Vital Signs Vital signs: Vital Signs Temp 98.0 F 10/17/24 08:00 Pulse 80 10/17/24 13:13 Resp 16 10/17/24 12:00 BP 131/80 10/17/24 12:00 Pulse Ox 99 10/17/24 12:00 FiO2 Intake & Output 10/16/24 10/17/24 10/17/24 18:59 06:59 18:59 Intake Total 620 320 10 Output Total 725 Balance -105 320 10 Weight 78.5 kg 79 kg Intake: IV 20 20 10 Invasive Line 3 20 20 10 Tube Feeding 600 300 Output: Urine 725 Other: Voiding Method Toilet Toilet Toilet Urinal Urinal Urinal # Voids 1 # Bowel Movements 1 - Labs CBC & Chem 7: 10/17/24 06:47 10/17/24 06:47 Labs: Abnormal Lab Results - Last 24 Hours (Table) 10/16/24 10/16/24 10/17/24 Range/Units 16:39 23:29 06:27 RBC (4.40-5.60) 10*6/uL Hgb (13.0-17.0) g/dL Hct (39.6-50.0) % MCV (80.0-97.0) fL MCH (27.0-32.0) pg Immature Gran # (0.00-0.04) 10*3/uL Eosinophils # (0.04-0.35) 10*3/uL Sodium (137-145) mmol/L Creatinine (0.66-1.25) mg/dL Glucose (74-99) mg/dL POC Glucose (mg/dL) 257 H 339 H 241 H (70-110) mg/dL 10/17/24 10/17/24 10/17/24 Range/Units 06:47 06:47 11:49 RBC 2.32 L (4.40-5.60) 10*6/uL Hgb 8.0 L (13.0-17.0) g/dL Hct 24.3 L (39.6-50.0) % MCV 104.7 H (80.0-97.0) fL MCH 34.5 H (27.0-32.0) pg Immature Gran # 0.09 H (0.00-0.04) 10*3/uL Eosinophils # 0.00 L (0.04-0.35) 10*3/uL Sodium 136 L (137-145) mmol/L Creatinine 0.40 L (0.66-1.25) mg/dL Glucose 213 H (74-99) mg/dL POC Glucose (mg/dL) 235 H (70-110) mg/dL Microbiology - Last 24 Hours (Table) 10/13/24 19:00 Legionella Culture - Preliminary Sputum 10/13/24 19:00 Gram Stain - Final Sputum Sputum Culture - Final Corynebacterium striatum group
--- NOTE | 2024-10-17 16:36 | P.PN ---
Subjective Progress Note Date: 10/16/24 Principal diagnosis: Reason for follow-up is abnormal x-ray and question of pneumonia Patient is a 74-year-old male with a past medical history significant for diabetes mellitus atrial fibrillation hyperlipidemia NE, neck cancer status post chemotherapy, presenting to the hospital for evaluation of generalized weakness and confusion, patient did have a chest x-ray concerning for possible left suprahilar and right infrahilar infiltrate concerning for pneumonia however subsequent repeated have CT angiogram of the chest that was negative for PE and did shows progressive metastatic disease without any consolidation. On today's evaluation that is 10/16/2024,the patient remains to be afebrile patient is currently breathing comfortably on the 3 L nasal cannula oxygen patient is currently sleepy did not answer any question we definitely has been reported. Patient white count is 11.24 creatinine 0.39 Objective - Vital Signs Vital signs: Vital Signs Temp 97.8 F 10/16/24 09:08 Pulse 97 10/16/24 14:00 Resp 20 10/16/24 14:00 BP 132/77 10/16/24 11:41 Pulse Ox 97 10/16/24 11:41 FiO2 Intake & Output 10/15/24 10/16/24 10/16/24 18:59 06:59 18:59 Intake Total 320 Output Total 300 Balance 20 Weight 78.5 kg 78.5 kg Intake: IV 20 Invasive Line 3 20 Tube Feeding 300 Output: Urine 300 Other: Voiding Method Toilet Toilet Toilet Urinal Urinal Urinal # Voids 1 1 # Bowel Movements 1 2 - Exam GENERAL DESCRIPTION: An elderly male lying in bed in no distress RESPIRATORY SYSTEM: Unlabored breathing , decreased breath sounds at bases HEART: S1 S2 regular rate and rhythm , ABDOMEN: Soft , no tenderness EXTREMITIES: No edema feet - Labs CBC & Chem 7: 10/17/24 06:47 10/17/24 06:47 Labs: Abnormal Lab Results - Last 24 Hours (Table) 10/15/24 10/15/24 10/16/24 Range/Units 17:46 23:20 05:49 WBC 11.24 H (4.50-10.00) 10*3/uL RBC 2.52 L (4.40-5.60) 10*6/uL Hgb 8.8 L (13.0-17.0) g/dL Hct 25.9 L (39.6-50.0) % MCV 102.8 H (80.0-97.0) fL MCH 34.9 H (27.0-32.0) pg Immature Gran # 0.10 H (0.00-0.04) 10*3/uL Neutrophils # 9.22 H (1.80-7.70) 10*3/uL Eosinophils # 0.00 L (0.04-0.35) 10*3/uL Sodium (137-145) mmol/L Chloride (98-107) mmol/L Creatinine (0.66-1.25) mg/dL Glucose (74-99) mg/dL POC Glucose (mg/dL) 234 H 282 H (70-110) mg/dL 10/16/24 10/16/24 10/16/24 Range/Units 05:49 05:59 11:35 WBC (4.50-10.00) 10*3/uL RBC (4.40-5.60) 10*6/uL Hgb (13.0-17.0) g/dL Hct (39.6-50.0) % MCV (80.0-97.0) fL MCH (27.0-32.0) pg Immature Gran # (0.00-0.04) 10*3/uL Neutrophils # (1.80-7.70) 10*3/uL Eosinophils # (0.04-0.35) 10*3/uL Sodium 133 L (137-145) mmol/L Chloride 97 L (98-107) mmol/L Creatinine 0.39 L (0.66-1.25) mg/dL Glucose 205 H (74-99) mg/dL POC Glucose (mg/dL) 265 H 167 H (70-110) mg/dL Microbiology - Last 24 Hours (Table) 10/12/24 19:25 Blood Culture - Preliminary Blood 10/13/24 19:00 Gram Stain - Preliminary Sputum Sputum Culture - Preliminary Corynebacterium striatum group Assessment and Plan (1) Abnormal chest x-ray Current Visit: Yes Status: Acute Code(s): R93.89 - ABNORMAL FINDINGS ON DX IMAGING OF OTH BODY STRUCTURES SNOMED Code(s): 451167014 (2) Pneumonia Current Visit: No Status: Acute Priority: High Code(s): J18.9 - PNEUMONIA, UNSPECIFIED ORGANISM SNOMED Code(s): 776272713 (3) Leukocytosis Current Visit: Yes Status: Acute Code(s): D72.829 - ELEVATED WHITE BLOOD CELL COUNT, UNSPECIFIED SNOMED Code(s): 794945736 Plan: 1patient presented to hospital with progressive weakness in this patient who did have a history of head and neck cancer has been on chemotherapy now with evidence of abnormality seen on the chest x-ray with a question of possible metastatic disease clinically not behaving as pneumonia in this patient currently with no fever elevated white count other etiologies could be PE [address] of the chest did not show any consolidation with worsening metastatic disease 3patient blood culture has been negative sputum is growing Corynebacterium stratum however the patient did have normal procalcitonin and CT did not show any consolidation we will monitor him patient closely off antibiotic 4leukocytosis more likely steroid related we will monitor closely Dictation was produced using [employer] dictation software. please excuse any grammatical, word or spelling errors.
--- NOTE | 2024-10-17 17:08 | P.PN ---
Subjective Progress Note Date: 10/17/24 I am seeing the patient for the first time during this hospital visit. Please refer to Dr. Sandra's note for further details. Per the who is at bedside, patient has been having headache, unsteady gait, confusion that brought him to hospital. The Oncology team has updated the patient and his about pharangyeal mass with extension. Objective - Vital Signs Vital signs: Vital Signs Temp 98.0 F 10/17/24 08:00 Pulse 99 10/17/24 16:00 Resp 16 10/17/24 16:00 BP 147/83 10/17/24 16:00 Pulse Ox 99 10/17/24 16:00 FiO2 Intake & Output 10/16/24 10/17/24 10/17/24 18:59 06:59 18:59 Intake Total 620 320 20 Output Total 725 Balance -105 320 20 Weight 78.5 kg 79 kg Intake: IV 20 20 20 Invasive Line 3 20 20 20 Tube Feeding 600 300 Output: Urine 725 Other: Voiding Method Toilet Toilet Toilet Urinal Urinal Urinal # Voids 1 # Bowel Movements 1 - Exam General: Lying in bed and is not in acute distress. Neuro: The patient is awake, alert, oriented to self, place and time. Is following simple commands. No aphasia. No facial weakness. No dysarthria. Motor: Somewhat limited over the left upper extremity because of chronic shoulder pain but lifting above gravity. Raising bilateral lower extremities above gravity equally. Cerebellar: Normal finger to nose bilaterally. - Labs CBC & Chem 7: 10/17/24 06:47 10/17/24 06:47 Labs: Abnormal Lab Results - Last 24 Hours (Table) 10/16/24 10/17/24 10/17/24 Range/Units 23:29 06:27 06:47 RBC (4.40-5.60) 10*6/uL Hgb (13.0-17.0) g/dL Hct (39.6-50.0) % MCV (80.0-97.0) fL MCH (27.0-32.0) pg Immature Gran # (0.00-0.04) 10*3/uL Eosinophils # (0.04-0.35) 10*3/uL Sodium 136 L (137-145) mmol/L Creatinine 0.40 L (0.66-1.25) mg/dL Glucose 213 H (74-99) mg/dL POC Glucose (mg/dL) 339 H 241 H (70-110) mg/dL 10/17/24 10/17/24 Range/Units 06:47 11:49 RBC 2.32 L (4.40-5.60) 10*6/uL Hgb 8.0 L (13.0-17.0) g/dL Hct 24.3 L (39.6-50.0) % MCV 104.7 H (80.0-97.0) fL MCH 34.5 H (27.0-32.0) pg Immature Gran # 0.09 H (0.00-0.04) 10*3/uL Eosinophils # 0.00 L (0.04-0.35) 10*3/uL Sodium (137-145) mmol/L Creatinine (0.66-1.25) mg/dL Glucose (74-99) mg/dL POC Glucose (mg/dL) 235 H (70-110) mg/dL Microbiology - Last 24 Hours (Table) 10/13/24 19:00 Legionella Culture - Preliminary Sputum 10/13/24 19:00 Gram Stain - Final Sputum Sputum Culture - Final Corynebacterium striatum group Assessment and Plan Assessment: * 74-year-old male with metastatic head and neck cancer, who is admitted for generalized weakness. CT head was abnormal with hypoattenuation in the left cerebellum. MRI showed left parapharygeal mass appears larger than PET CT and may has some extension into jugular forament to cerebellar pontine angle. Vasogenic edema due to mass. * Metastatic head and neck cancer * Atrial fibrillation, on Eliquis * Diabetes * Hypertension * Coronary artery disease * Hyperlipidemia * Hard of hearing Plan: Oncology is on board. Will defer the rest of medical management to primary team and other specialist. There is no further neurological work-up. Will sign off. Please reconsult if needed. Time with Patient: Less than 30
[2024-10-17 17:09] LABS: Glucose,Whole Blood 327 mg/dL (70-110)
--- NOTE | 2024-10-17 21:58 | P.CONS ---
History of Present Illness - Reason for Consult Consult date: 10/17/24 head neck carcinoma Requesting physician: Jamari Galdamez - Chief Complaint weakness, confusion - History of Present Illness Mr. Alexander is a male pt of Dr. De Jeuss who presented with progressive dysphagia, hoarseness, weight loss, and headaches over about 6 months. Imaging at [facility], including CT brain on 02/02/2024 showed bilateral sinus disease and some atrophy. He also had a PET scan 02/27/2024 which showed abnormal uptake in left parapharyngeal space in left neck node measured 11 mm multiple lung nodules up to 10 mm in DERICK (SUV 5), other nodes are smaller without significant uptake but larger compared to CT chest done in December 2023 and a new 5 mm LLL nodule. He was evaluated by Dr. 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 He underwent PEG tube placement. His disease is PDL-1 15-20%, NGS showed no significant mutation, MINDY, low TMB. On 04/28/2024 he started weekly carbo/taxol and keytruda. He received 4 cycles, last dose 07/07/24. On 07/13/2024 PET scan showed some disease improvement. He was inpt at [facility] in Jul, was in rehab in August. From chart review he was in [facility] in September and since he has been home he has been getting weaker. There has been no contact with the office since Jul. Currently admitted for weakness, AMS. Over the last several days he has been having progressive weakness and confusion. He has been seen by Nephrology for hyponatremia, Infectious Disease for pneumonia left suprahilar infiltrate. CTA showed scattered pulmonary nodules largest 1 previously 8 mm now 21 mm. Additional scattered nodules increasing in size and number mediastinal lymph node prominence compared to July 13, 2024 imaging no PE. He has been seen by cardiology because of A-fib with RVR. Patient is on Eliquis for the same. Neurology has seen pt for CT of the brain findings, possible CVA Brain MRI is reporting left parapharyngeal mass appears larger than on the PET scan in June, may have some extension into through the jugular foramen to the cerebellar pontine angle. Vasogenic edema appears to be in the adjacent cerebellum with some mild mass effect. Poor vascular flow within the left jugular foramenPt reporting TONG, mostly at night, denies fevers, vision loss/changes, N,V, chest pain, abd pain, numbness or tingling in extremities, incontinence. Review of Systems 10 point ROS is neg except as stated in HPI Past Medical History Past Medical History: Atrial Fibrillation, Cancer, Diabetes Mellitus, Hyperlipidemia, Myocardial Infarction ([place]) Additional Past Medical History / Comment(s): Spine CA C1/C2, CVA, Last Myocardial Infarction Date:: 2010 History of Any Multi-Drug Resistant Organisms: None Reported Past Surgical History: Joint Replacement Additional Past Surgical History / Comment(s): Peg tube, Past Anesthesia/Blood Transfusion Reactions: No Reported Reaction Past Psychological History: No Psychological Hx Reported Smoking Status: Never smoker Past Alcohol Use History: None Reported Past Drug Use History: None Reported Medications and Allergies Home Medications Medication Instructions Recorded Confirmed Type Apixaban [Eliquis] 5 mg PEG/G-TUBE BID 07/21/24 10/12/24 History Atorvastatin [Lipitor] 20 mg PEG/G-TUBE HS 07/21/24 10/12/24 History HYDROcodone/APAP 10-325MG [[place] 1 tab PEG/G-TUBE QID PRN 07/21/24 10/12/24 H istory 10-325] Esomeprazole Magnesium [NexIUM] 20 mg PEG/G-TUBE BID PRN 10/12/24 10/12/24 His tory Furosemide [Lasix] 40 mg PEG/G-TUBE DAILY PRN 10/12/24 10/12/24 History Metoprolol Tartrate [Lopressor] 12.5 mg PEG/G-TUBE BID 10/12/24 10/12/24 History Ondansetron Odt [Zofran Odt] 8 mg PEG/G-TUBE Q8H PRN 10/12/24 10/12/24 History Potassium Chloride Oral Liquid 40 meq PEG/G-TUBE DAILY 10/12/24 10/12/24 History Allergies Allergy/AdvReac Type Severity Reaction Status Date / Time Mushroom Allergy Unknown Verified 10/12/24 19:58 mushroom Allergy Unknown Verified 10/12/24 19:58 Physical Exam Vitals: Vital Signs Temp Pulse Pulse Resp BP Pulse Ox 10/17/24 03:20 71 22 136/75 95 10/17/24 00:00 97.9 F 66 20 142/88 96 10/16/24 21:03 96 10/16/24 20:51 97 10/16/24 20:00 97.6 F 74 22 127/74 100 10/16/24 15:17 98.1 F 97 20 119/68 97 10/16/24 14:00 97 20 10/16/24 11:41 97 20 132/77 97 10/16/24 09:13 106 H 20 10/16/24 09:08 97.8 F 106 H 20 121/79 96 Intake and Output 10/16/24 10/17/24 10/17/24 22:59 06:59 14:59 Intake Total 310 310 Output Total 425 Balance -115 310 Intake: IV 10 10 Invasive Line 3 10 10 Tube Feeding 300 300 Output: Urine 425 Other: Voiding Method Toilet Toilet Urinal Urinal # Voids 1 # Bowel Movements 1 Weight 79 kg - Constitutional General appearance: average body habitus, cooperative, no acute distress - EENT Eyes: anicteric sclerae, EOMI ENT: hearing grossly normal, thrush - Neck Neck: lymphadenopathy (left submandibular LAD,2.5cm, hard, fixed) - Respiratory Respiratory: left: wheezing (exp), bilateral: CTA - Cardiovascular Rhythm: irregularly irregular Heart sounds: normal: S1, S2 Abnormal Heart Sounds: no systolic murmur, no diastolic murmur, no rub, no S3 Gallop, no S4 Gallop, no click, no other leg Peripheral Edema: bilateral: None - Gastrointestinal PEG insitu General gastrointestinal: no absent bowel sounds, no decreased bowel sounds, no distended, no hepatomegaly, no hyperactive bowel sounds, normal bowel sounds, no organomegaly, no rigid, no scaphoid, soft, no splenomegaly, no tenderness, no umbilical hernia, no ventral hernia - Integumentary Integumentary: normal - Neurologic red sclera, squinting - Musculoskeletal Musculoskeletal: generalized weakness - Psychiatric flat affect Psychiatric: A&O x's 3 Results CBC & Chem 7: 10/17/24 06:47 10/17/24 06:47 Labs: Abnormal Lab Results - Last 24 Hours (Table) 10/16/24 10/16/24 10/16/24 Range/Units 11:35 16:39 23:29 RBC (4.40-5.60) 10*6/uL Hgb (13.0-17.0) g/dL Hct (39.6-50.0) % MCV (80.0-97.0) fL MCH (27.0-32.0) pg Immature Gran # (0.00-0.04) 10*3/uL Eosinophils # (0.04-0.35) 10*3/uL Sodium (137-145) mmol/L Creatinine (0.66-1.25) mg/dL Glucose (74-99) mg/dL POC Glucose (mg/dL) 167 H 257 H 339 H (70-110) mg/dL 10/17/24 10/17/24 10/17/24 Range/Units 06:27 06:47 06:47 RBC 2.32 L (4.40-5.60) 10*6/uL Hgb 8.0 L (13.0-17.0) g/dL Hct 24.3 L (39.6-50.0) % MCV 104.7 H (80.0-97.0) fL MCH 34.5 H (27.0-32.0) pg Immature Gran # 0.09 H (0.00-0.04) 10*3/uL Eosinophils # 0.00 L (0.04-0.35) 10*3/uL Sodium 136 L (137-145) mmol/L Creatinine 0.40 L (0.66-1.25) mg/dL Glucose 213 H (74-99) mg/dL POC Glucose (mg/dL) 241 H (70-110) mg/dL Microbiology - Last 24 Hours (Table) 10/13/24 19:00 Gram Stain - Final Sputum Sputum Culture - Final Corynebacterium striatum group 10/12/24 19:25 Blood Culture - Preliminary Blood CT scan - chest: report reviewed MRI - head: report reviewed Assessment and Plan (1) Weak Current Visit: Yes Status: Acute Priority: High Code(s): R53.1 - WEAKNESS SNOMED Code(s): 38339208 (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 Current Visit: Yes Status: Chronic Priority: High Code(s): C06.9 - MALIGNANT NEOPLASM OF MOUTH, UNSPECIFIED; C77.0 - SEC AND UNSP MALIG NEOPLASM OF NODES OF HEAD, FACE AND NECK SNOMED Code(s): 377104093 (3) Anemia Current Visit: Yes Status: Chronic Priority: Medium Code(s): D64.9 - ANEMIA, UNSPECIFIED SNOMED Code(s): 053311122 (4) Thrush, oral Current Visit: Yes Status: Chronic Priority: Medium Code(s): B37.0 - CANDIDAL STOMATITIS SNOMED Code(s): 39610863 Plan: Brain MRI is reporting left parapharyngeal mass appears larger than on the PET scan in June, may have some extension into through the jugular foramen to the cerebellar pontine angle. Vasogenic edema appears to be in the adjacent cerebellum with some mild mass effect. Poor vascular flow within the left jugular foramen weakness - Weakness - Likely multifactorial including findings on the CT scan. Likely the cause of patient's headache symptoms as well Malignant neoplasm of the oral cavity - Diagnosis and treatment as documented in HPI - Brain MRI is reporting left parapharyngeal mass appears larger than on the PET scan in June, may have some extension into through the jugular foramen to the cerebellar pontine angle. Vasogenic edema appears to be in the adjacent cerebellum with some mild mass effect. Poor vascular flow within the left jugu lar foramen. Unfortunately, imaging is showing disease progression. This was discussed with the patient and his , also the likely cause for his symptoms - Steroids have been initiated - Radiation oncology has been consulted to review the case and see if they can offer treatment options - Patient's performance status overall is fair other than the weakness. Will schedule a follow-up with Medical Oncology after patient has been assessed by Radiation Oncology to discuss available treatment options to see if he is interested in pursuing any Macrocytic anemia -macrocytic anemia work up ordered -transfuse for a Hgb <7 or if pt is symptomatic. Oral thrush -Cont oral nystatin treatment
[2024-10-17 23:53] LABS: Glucose,Whole Blood 314 mg/dL (70-110)
[2024-10-18 05:53] LABS: Glucose,Whole Blood 243 mg/dL (70-110)
[2024-10-18 08:07] LABS: Basophils # (A) 0.01 10*3/uL (0.00-0.10); Basophils % (A) 0.1 %; HCT 25.1 % (39.6-50.0); HGB 8.2 g/dL (13.0-17.0); Lymphocytes # (A) 0.93 10*3/uL (0.90-5.00); Lymphocytes % (A) 12.5 %; MCH 33.9 pg (27.0-32.0); MCHC 32.7 g/dL (32.0-37.0); MCV 103.7 fL (80.0-97.0); Mean Platelet Volume 10.2 fL (9.5-12.2); Monocytes # (A) 0.41 10*3/uL (0.20-1.00); Monocytes % (A) 5.5 %; Neutrophils # (A) 5.93 10*3/uL (1.80-7.70); Neutrophils % (A) 79.7 %; Platelet Count 277 10*3/uL (140-440); RBC 2.42 10*6/uL (4.40-5.60); WBC 7.44 10*3/uL (4.50-10.00)
[2024-10-18 08:14] LABS: African American GFR (CKD) >90 (>60 ml/min/1.73 sqM); Anion Gap 6 mmol/L; Blood Urea Nitrogen 20 mg/dL (9-20); Calcium 8.4 mg/dL (8.4-10.2); Carbon Dioxide 28 mmol/L (22-30); Chloride 100 mmol/L (98-107); Glucose 219 mg/dL (74-99); Non-African American GFR(CKD) >90 (>60 ml/min/1.73 sqM); Potassium 4.3 mmol/L (3.5-5.1); Sodium 134 mmol/L (137-145)
--- NOTE | 2024-10-18 10:05 | P.PN ---
Subjective Patient is seen in follow-up for hyponatremia. Sodium level improving. Receiving tube feeds. Vital signs are stable. General: No acute distress. HEENT: Head exam is unremarkable. On nasal cannula. LUNGS: No audible rhonchi or wheezes. HEART: Rate and Rhythm are regular. ABDOMEN: Nontender. EXTREMITITES: No edema. Objective - Vital Signs Vital signs: Vital Signs Temp 98.5 F 10/18/24 04:39 Pulse 90 10/18/24 08:48 Resp 16 10/18/24 04:39 BP 137/78 10/18/24 04:39 Pulse Ox 99 10/18/24 04:39 FiO2 Intake & Output 10/17/24 10/18/24 10/18/24 18:59 06:59 18:59 Intake Total 1220 20 Output Total 550 Balance 670 20 Weight 80 kg Intake: IV 20 20 Invasive Line 3 20 20 Tube Feeding 1200 Output: Urine 550 Other: Voiding Method Toilet Toilet Urinal Urinal # Voids 1 # Bowel Movements 2 - Labs CBC & Chem 7: 10/18/24 06:48 10/18/24 06:48 Labs: Abnormal Lab Results - Last 24 Hours (Table) 10/17/24 10/17/24 10/17/24 Range/Units 11:49 16:49 23:52 RBC (4.40-5.60) 10*6/uL Hgb (13.0-17.0) g/dL Hct (39.6-50.0) % MCV (80.0-97.0) fL MCH (27.0-32.0) pg Immature Gran # (0.00-0.04) 10*3/uL Eosinophils # (0.04-0.35) 10*3/uL Sodium (137-145) mmol/L Creatinine (0.66-1.25) mg/dL Glucose (74-99) mg/dL POC Glucose (mg/dL) 235 H 327 H 314 H (70-110) mg/dL 10/18/24 10/18/24 10/18/24 Range/Units 05:51 06:48 06:48 RBC 2.42 L (4.40-5.60) 10*6/uL Hgb 8.2 L (13.0-17.0) g/dL Hct 25.1 L (39.6-50.0) % MCV 103.7 H (80.0-97.0) fL MCH 33.9 H (27.0-32.0) pg Immature Gran # 0.16 H (0.00-0.04) 10*3/uL Eosinophils # 0.00 L (0.04-0.35) 10*3/uL Sodium 134 L (137-145) mmol/L Creatinine 0.41 L (0.66-1.25) mg/dL Glucose 219 H (74-99) mg/dL POC Glucose (mg/dL) 243 H (70-110) mg/dL Microbiology - Last 24 Hours (Table) 10/12/24 19:25 Blood Culture - Final Blood 10/13/24 19:00 Legionella Culture - Preliminary Sputum Assessment and Plan Plan: Assessment: 1. Hypovolemic hyponatremia improving with IV fluids. Sodium level 134 today. 2. History of head and neck cancer status postchemotherapy. 3. Dysphagia, receiving PEG tube feeds. 4. Coronary artery disease. 5. A-fib. Plan: Maintain tube feeds with minimal water flushes.
[2024-10-18 10:27] LABS: Reticulocyte % 2.93 % (0.10-1.80)
[2024-10-18 12:10] LABS: Glucose,Whole Blood 289 mg/dL (70-110)
--- NOTE | 2024-10-18 12:12 | P.PN ---
Subjective Progress Note Date: 10/18/24 Principal diagnosis: Pneumonia. 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 He had been treated with Taxol carboplatin and subsequently on Keytruda. He was admitted here back in July 2024 with neutropenic fever and sepsis with acute toxic metabolic encephalopathy. He was discharged to home August 23, 2024. In the interim he had been at [facility] approximately 1-1/2 months ago. He did have a PEG tube placed. No other details available at this time. He was brought into the emergency room yesterday with progressive weakness and altered mental status. His states he has been getting weaker and weaker and confused and just staring off into space. CT scan of the brain revealed interval decreased attenuation within the left cerebral hemisphere. This could reflect ischemic insult versus underlying lesion. Left-sided mastoiditis. Chest x-ray shows nodular infiltrate in the left suprahilar region and right infrahilar region. CT angiogram revealed no evidence of pulmonary embolism. There is progression of metastatic disease compared to June 2024. Increasing number of pulmonary nodules. Mediastinum demonstrates multiple lymph nodes which are slightly more prominent and increased compared to June 2024. Mild pulmonary vascular congestion. White count 9.6. Hemoglobin 9.4. Platelets 265. Sodium 126. Potassium 4.8. Bicarb 29. BUN 13. Creatinine 0.37. Glucose 133. He is seen today in consultation on the selective care unit. He is currently awake. He is alert but confused to time and place. Very poor historian. Unable to obtain any significant information. Maintaining good O2 saturations in the 90s on 5 L/min per nasal cannula. He is been afebrile. Slightly tachycardic. No tachypnea. The patient is seen today October 15, 2024 in follow-up on the regular medical floor. He is currently resting in bed. A bit more awake and alert today compared to yesterday. His is at the bedside. He is maintaining O2 saturations in the mid 90s on 5 L/min per nasal cannula. He was afebrile. Hemodynamically stable. Blood culture pending. Sputum culture pending. White count 6.6. Hemoglobin 8.6. Platelets 219. Sodium 131. Potassium 4.2. Bicarb 25. BUN 11. Creatinine 0.34. Glucose 205. He remains on Decadron. Anticoagulated with Eliquis. Progress note dated October 16, 2024. 74-year-old male seen today in room 382. The patient is currently on 3 L of oxygen. He is getting saline at 50 cc an hour, and Jevity at 60 cc an hour. He is currently resting in bed. No acute distress. No respiratory distress. No family members in the room today. Current laboratory data includes a white count 11.2, hemoglobin 8.8, hematocrit 25.9, and a platelet count of 271,000. Sodium 133, potassium 4.3, chlorides 97, CO2 25, BUN 15, creatinine 0.39. Glucose is 167. Calcium 8.8. Magnesium 1.9. Progress note dated October 17, 2024. 74-year-old male seen today in room 382. Currently, the patient is resting comfortably in bed. He is on 3 L of oxygen. He is getting saline at 50 cc an hour. He is also getting Jevity at 60 cc an hour. According to the nurses, the patient had an uneventful night. Current laboratory data includes a white count of 8.1, hemoglobin 8, hematocrit 24.3, and a platelet count of 224,000. Sodium 136, potassium 4.4, chlorides 102, CO2 29, BUN 20, creatinine 0.40. Glucose is 213. Calcium 8.4, magnesium 2.0. Brain CT showed a left parapharyngeal mass, with some extension into the jugular foramen to the cerebellar pontine angle. There is vasogenic edema, in the adjacent cerebellum, with mild mass effect. Poor vascular flow within the left jugular foramen. There is evidence of both pansinusitis, and left mastoiditis. Progress note dated October 18, 2024. 74-year-old male seen again in room 382. The patient is currently on 2 L of oxygen. He is getting Jevity at 60 cc an hour. No additional IV fluids. He is resting comfortably in bed. No acute distress. Laboratory data includes a white count 7.4, hemoglobin 8.2, hematocrit 25.1. Platelet count is 277,000. Sodium 134, potassium 4.3, chlorides 100, CO2 28, BUN 20, creatinine 0.41. Glucose is 289. Calcium is 8.4. No chest x-ray today. Objective - Vital Signs Vital signs: Vital Signs Temp 97.7 F 10/18/24 09:00 Pulse 98 10/18/24 12:05 Resp 16 10/18/24 09:00 BP 114/70 10/18/24 09:00 Pulse Ox 97 10/18/24 09:00 FiO2 Intake & Output 10/17/24 10/18/24 10/18/24 18:59 06:59 18:59 Intake Total 1220 20 1450 Output Total 550 Balance 813 74 4339 Weight 80 kg 80 kg Intake: IV 20 20 10 Invasive Line 3 20 20 10 Tube Feeding 1200 1440 Output: Urine 550 Other: Voiding Method Toilet Toilet Toilet Urinal Urinal Urinal # Voids 1 # Bowel Movements 2 - Exam No acute distress, oriented 3. Currently on 2 L nasal cannula. HEENT examination is grossly unremarkable. Mucous membranes are moist. No oral lesions. Neck supple. Full range of motion. No adenopathy thyromegaly or neck vein distention. Cardiovascular examination reveals regular rhythm rate. S1-S2 normal. No S3 or S4. No discernible murmur noted. Lungs reveal bilateral scattered rhonchi. No wheezes or crackles. Breath sounds equal. Abdomen soft bowel sounds are heard. No masses or tenderness. Extremities are intact. No cyanosis clubbing or edema. Skin is without rash or lesion. Neurologic examination is brief but nonfocal. - Labs CBC & Chem 7: 10/18/24 06:48 10/18/24 06:48 Labs: Abnormal Lab Results - Last 24 Hours (Table) 10/17/24 10/17/24 10/18/24 Range/Units 16:49 23:52 05:51 RBC (4.40-5.60) 10*6/uL Hgb (13.0-17.0) g/dL Hct (39.6-50.0) % MCV (80.0-97.0) fL MCH (27.0-32.0) pg Immature Gran # (0.00-0.04) 10*3/uL Eosinophils # (0.04-0.35) 10*3/uL Retic Count (0.10-1.80) % Sodium (137-145) mmol/L Creatinine (0.66-1.25) mg/dL Glucose (74-99) mg/dL POC Glucose (mg/dL) 327 H 314 H 243 H (70-110) mg/dL 10/18/24 10/18/24 10/18/24 Range/Units 06:48 06:48 06:48 RBC 2.42 L (4.40-5.60) 10*6/uL Hgb 8.2 L (13.0-17.0) g/dL Hct 25.1 L (39.6-50.0) % MCV 103.7 H (80.0-97.0) fL MCH 33.9 H (27.0-32.0) pg Immature Gran # 0.16 H (0.00-0.04) 10*3/uL Eosinophils # 0.00 L (0.04-0.35) 10*3/uL Retic Count 2.93 H (0.10-1.80) % Sodium 134 L (137-145) mmol/L Creatinine 0.41 L (0.66-1.25) mg/dL Glucose 219 H (74-99) mg/dL POC Glucose (mg/dL) (70-110) mg/dL Microbiology - Last 24 Hours (Table) 10/12/24 19:25 Blood Culture - Final Blood 10/13/24 19:00 Legionella Culture - Preliminary Sputum Assessment and Plan Assessment: Acute hypoxic respiratory failure secondary to progression of metastatic head and neck cancer. Chest x-ray shows nodular infiltrate in the left suprahilar re gion and right infrahilar region. CT angiogram revealed no evidence of pulmonary embolism. There is progression of metastatic disease compared to June 2024. Increasing number of pulmonary nodules. Mediastinum demonstrates multiple lymph nodes which are slightly more prominent and increased compared to June 2024. Altered mental status secondary to above. CT scan of the brain revealed interval decreased attenuation within the left cerebral hemisphere. This could reflect ischemic insult versus underlying lesion. Left-sided mastoiditis. History of metastatic head and neck cancer diagnosed back in April 2024. Progressive weakness and debility. Prolonged hospitalization at [facility] due to sepsis and pneumonia in September 2024. History of neutropenic fever with severe sepsis, July 2024. History of dysphagia secondary to above, PEG tube placed. History of diabetes mellitus, type II. History of chronic atrial fibrillation. Hyperlipidemia. Non smoker. Poor overall functional performance. Plan: Plan dated October 16, 2024. The patient is seen today in room 382. The patient continues on nasal O2 at 3 L. He is getting saline at 50 cc an hour, and Jevity, tube feeds, at 60 cc an hour. He is a bit more awake and alert. Labs, x-rays, medications are reviewed. We will continue to follow make recommendations along the way. The patient has multiple pulmonary nodules, seen on CT scan. Pneumonia is much less likely as procalcitonin level is negative. We will continue to follow. Prognosis is poor. Dictation was produced using [employer] software. Please excuse any grammatical, word or spelling errors. Plan dated October 17, 2024. The patient is seen today in room 282. He remains about the same as he did yesterday. He continues on nasal O2 3 L. He is getting saline at 50 cc an hour. He is also receiving Jevity 60 cc an hour. Labs, x-rays, and medications are reviewed. The patient's overall prognosis remains poor. CODE STATUS should be addressed by the primary service. No additional recommendations are made. Dictation was produced using [employer] software. Please excuse any grammatical, word or spelling errors. Plan dated October 18, 2024. The patient remains relatively stable. Labs, x-rays, medications are reviewed. The patient is currently on 2 L. He is getting Jevity at 60 cc an hour. Reji calhoun is not receiving any additional IV fluids. We will continue to follow make recommendations along the way. Prognosis is guarded. CODE STATUS should be addressed by the primary service. Dictation was produced using [employer] software. Please excuse any grammatical, word or spelling errors. Time with Patient: Less than 30
[2024-10-18 15:43] LABS: % Iron Saturation 20.49 (15.00-50.00); Iron 50 UG/DL (65-175); Total Iron Binding Capacity 244 UG/DL (228-460)
--- NOTE | 2024-10-18 16:02 | P.PN ---
Subjective Progress Note Date: 10/18/24 Principal diagnosis: Pneumonia, weakness. History of squamous cell carcinoma of the head/neck In follow-up today patient reporting he had headache come on about 3 AM, the pain at times can be pretty excruciating, he denies any other neurological symptoms though. No fevers, nausea or vomiting. He is still managing most of his secretions. He is tolerating PEG tubes without nausea, abdominal pain or bloating, no acute changes in bowel habits. Objective - Vital Signs Vital signs: Vital Signs Temp 98 F 10/18/24 12:00 Pulse 98 10/18/24 12:05 Resp 18 10/18/24 12:00 BP 139/74 10/18/24 12:00 Pulse Ox 98 10/18/24 12:00 FiO2 Intake & Output 10/17/24 10/18/24 10/18/24 18:59 06:59 18:59 Intake Total 1220 20 1460 Output Total 550 Balance 366 65 8804 Weight 80 kg 80 kg Intake: IV 20 20 20 Invasive Line 3 20 20 20 Tube Feeding 1200 1440 Output: Urine 550 Other: Voiding Method Toilet Toilet Toilet Urinal Urinal Urinal # Voids 1 # Bowel Movements 2 - Labs CBC & Chem 7: 10/18/24 06:48 10/18/24 06:48 Labs: Abnormal Lab Results - Last 24 Hours (Table) 10/17/24 10/17/24 10/18/24 Range/Units 16:49 23:52 05:51 RBC (4.40-5.60) 10*6/uL Hgb (13.0-17.0) g/dL Hct (39.6-50.0) % MCV (80.0-97.0) fL MCH (27.0-32.0) pg Immature Gran # (0.00-0.04) 10*3/uL Eosinophils # (0.04-0.35) 10*3/uL Retic Count (0.10-1.80) % Sodium (137-145) mmol/L Creatinine (0.66-1.25) mg/dL Glucose (74-99) mg/dL POC Glucose (mg/dL) 327 H 314 H 243 H (70-110) mg/dL Iron (65-175) UG/DL Transferrin (204.0-354.0) mg/dL 10/18/24 10/18/24 10/18/24 Range/Units 06:48 06:48 06:48 RBC 2.42 L (4.40-5.60) 10*6/uL Hgb 8.2 L (13.0-17.0) g/dL Hct 25.1 L (39.6-50.0) % MCV 103.7 H (80.0-97.0) fL MCH 33.9 H (27.0-32.0) pg Immature Gran # 0.16 H (0.00-0.04) 10*3/uL Eosinophils # 0.00 L (0.04-0.35) 10*3/uL Retic Count 2.93 H (0.10-1.80) % Sodium 134 L (137-145) mmol/L Creatinine 0.41 L (0.66-1.25) mg/dL Glucose 219 H (74-99) mg/dL POC Glucose (mg/dL) (70-110) mg/dL Iron 50 L (65-175) UG/DL Transferrin 174.0 L (204.0-354.0) mg/dL 10/18/24 Range/Units 11:53 RBC (4.40-5.60) 10*6/uL Hgb (13.0-17.0) g/dL Hct (39.6-50.0) % MCV (80.0-97.0) fL MCH (27.0-32.0) pg Immature Gran # (0.00-0.04) 10*3/uL Eosinophils # (0.04-0.35) 10*3/uL Retic Count (0.10-1.80) % Sodium (137-145) mmol/L Creatinine (0.66-1.25) mg/dL Glucose (74-99) mg/dL POC Glucose (mg/dL) 289 H (70-110) mg/dL Iron (65-175) UG/DL Transferrin (204.0-354.0) mg/dL Microbiology - Last 24 Hours (Table) 10/12/24 19:25 Blood Culture - Final Blood 10/13/24 19:00 Legionella Culture - Preliminary Sputum Assessment and Plan (1) Weak Current Visit: Yes Status: Acute Priority: High Code(s): R53.1 - WEAKNESS SNOMED Code(s): 83776193 (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 Likely the cause of patient's headache symptoms as well Malignant neoplasm of the oral cavity - Diagnosis and treatment as documented in HPI - Brain MRI is reporting left parapharyngeal mass appears larger than on the PET scan in June, may have some extension into through the jugular foramen to the cerebellar pontine angle. Vasogenic edema appears to be in the adjacent cere bellum with some mild mass effect. Poor vascular flow within the left jugular foramen. Unfortunately, imaging is showing disease progression. This was discussed with the patient and his , also the likely cause for his symptoms - Steroids have been initiated -Case discussed today with radiation oncology today. They will review the case and meet with patient and about treatment options. - Patient's performance status overall is fair other than the weakness. Medical Oncology follow-up after patient has been assessed by Radiation Oncology and completed any treatments recommended. Patient and verbalized understanding the plan and agree with the same. Macrocytic anemia -macrocytic anemia work up ordered-so significant deficiencies noted -transfuse for a Hgb <7 or if pt is symptomatic. -Hgb stable at 8.2 today Oral thrush -Cont oral nystatin treatment
[2024-10-18 17:17] LABS: Glucose,Whole Blood 265 mg/dL (70-110)
--- NOTE | 2024-10-18 17:52 | P.PN ---
Subjective Progress Note Date: 10/18/24 Patient is a 74-year-old male past medical history of neck cancer status post chemotherapy who presents for generalized weakness and confusion. Confusion has worsened over the past 2 to 3 days he will stare off and needs multiple prompts to answer questions. Patient's states that he was released from [facility] about 1.5 months ago and has since become progressively weaker. During that time he had PEG tube placed. No recent falls. He is on Eliquis for history of A-fib. Absence of fever, chills, chest pain, palpitations, abdominal pain, dysuria. 10/14/2024. Patient seen and examined at bedside. He is alert and oriented x2. He continues to be on 5 L nasal cannula saturating at 93%. CTA chest without evidence of pulmonary embolism. No new complaints, consult pulmonology for c ontinued hypoxic respiratory failure, will order brain MRI for possible metastasis to brain. Today's labs WBC 9.6, hemoglobin 9.4, MCV 103, sodium 126, creatinine 0.37, ammonia is WNL. 10/15/2024 Patient's hyponatremia improved serum. Sodium is 131. Patient probably is getting excess free water through the PEG tube which will be cut down on IV normal saline will be discontinued. Patient is feeling good with better today less confused. Patient is awaiting MRI. 10/16/2024. Patient seen and examined at the bedside. Patient seems to be more confused since yesterday. Continues to be on 3 L of oxygen via nasal cannula. MRI brain is pending. Labs today show WBC 11.24, hemoglobin 8.8, sodium 133, BUN 41 creatinine 0.39, glucose 205. No new imaging. 10/17/2024 Patient seen and examined at the bedside. Patient seems to be more alert and oriented compared to yesterday. He is AAO x 3. Continues to be on 3 L oxygen via nasal cannula. MRI of the brain done yesterday shows enlarging left p arapharyngeal mass with extension through the jugular foramen to the cerebral pontine angle. There is also vasogenic edema in the adjacent cerebellum with some mild mass effect and poor vascular flow within the left jugular foramen. Oncology team has been consulted. In the meantime patient continues to be on dexamethasone 4 mg p.o. every 6 hour. Lab work today shows WBC 8.06, hemoglobin 8.0, sodium 136, potassium 4.4, BUN 20, creatinine 0.4, calcium 8.4, magnesium 2.0. Patient is getting enteral feeds through PEG tube with Jevity with a rate of 60 cc/h. 10/18/2024 Patient seen and examined at the bedside. Patient seems to be more alert and oriented compared to yesterday. He is AAO x 3. Continues to be on 2 L oxygen via nasal cannula. MRI of the brain done yesterday shows enlarging left parapharyngeal mass with extension through the jugular foramen to the cerebral pontine angle. There is also vasogenic edema in the adjacent cerebellum with some mild mass effect and poor vascular flow within the left jugular foramen. Radiation oncology team has been consulted. In the meantime patient continues to be on dexamethasone 4 mg p.o. every 6 hour. Lab work today shows WBC 7.44, h emoglobin 8.2, sodium 134, BUN 20, creatinine 0.41, calcium 8.4, iron 50, TIBC 244, percent saturation 20.49, transferrin 134, ferritin 144, vitamin B12 851 and folate 7.90. Patient is getting enteral feeds through PEG tube with Jevity with a rate of 60 cc/h. REVIEW OF SYSTEMS: Pertinent positives and negatives noted in HPI. PHYSICAL EXAMINATION: Vitals reviewed GENERAL: Resting comfortably in bed. EYES: PERRL, no scleral injection or icterus. No vision loss HENT: Normocephalic, atraumatic, hearing grossly intact, moist mucous membranes NECK: No tracheal deviation, full range of motion. CARDIOVASCULAR: S1 and S2 present. Irregular rhythm. PULMONARY: Chest is clear to auscultation, no wheezing, rhonchi, or crackles. ABDOMEN: Soft, nontender, nondistended. No palpable organomegaly. PEG tube. MUSCULOSKELETAL: No apparent joint swelling and deformities. EXTREMITIES: No apparent cyanosis, clubbing. No pedal edema. NEUROLOGICAL: Alert and oriented x2. 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 SKIN: No apparent rashes. Assessment and Plan: #Acute encephalopathy, likely secondary to enlarging left pharyngeal mass with extension into the cerebellum #Acute hypoxic respiratory failure, less likely pneumonia, secondary to COPD/asthma continue with systemic steroids and additional treatments #Generalized weakness #Eosinophila #Otomastoiditis #Leukocytosis likely reactive to steroid, resolved #Anemia of chronic disease Afebrile, WBC is WNL, Procalcitonin negative. MRI brain with and without contrast with findings discussed above D-dimer 2.7, CTA chest without evidence of pulmonary embolism Sputum culture is positive for Corynebacterium stratum Blood culture report is pending Continue with dexamethasone 4 mg p.o. every 6 hour PT OT consulted Pulmonology consulted, note reviewed ID consulted, note reviewed Neurology consulted, note reviewed Continue to monitor CBC and BMP #History of head and neck cancer Radiation oncology has been consulted # A-fib with RVR Continue Eliquis Cardiology consulted, note reviewed, Lopressor to be continued at 75 mg twice daily Cardiology signed off #Hypovolemic hyponatremia #CHF with systolic dysfunction EF 45 to 50% Hold Lasix Continue IV NS and water flushes through PEG tube Nephrology consulted, note reviewed Chronic Medical Conditions History of neck cancers/p chemotherapy PEG tube in place, dietitian consulted CAD Resume home medications DVT ppx: Lovenox [address] Bob seen patient with resident, present during exam, and agreed with findings. Objective - Vital Signs Vital signs: Vital Signs Temp 98.5 F 10/18/24 04:39 Pulse 92 10/18/24 04:39 Resp 16 10/18/24 04:39 BP 137/78 10/18/24 04:39 Pulse Ox 99 10/18/24 04:39 FiO2 Intake & Output 10/17/24 10/18/24 10/18/24 18:59 06:59 18:59 Intake Total 1220 20 Output Total 550 Balance 670 20 Weight 80 kg Intake: IV 20 20 Invasive Line 3 20 20 Tube Feeding 1200 Output: Urine 550 Other: Voiding Method Toilet Toilet Urinal Urinal # Voids 1 # Bowel Movements 2 - Labs CBC & Chem 7: 10/18/24 06:48 10/18/24 06:48 Labs: Abnormal Lab Results - Last 24 Hours (Table) 10/17/24 10/17/24 10/17/24 Range/Units 11:49 16:49 23:52 RBC (4.40-5.60) 10*6/uL Hgb (13.0-17.0) g/dL Hct (39.6-50.0) % MCV (80.0-97.0) fL MCH (27.0-32.0) pg Immature Gran # (0.00-0.04) 10*3/uL Eosinophils # (0.04-0.35) 10*3/uL Sodium (137-145) mmol/L Creatinine (0.66-1.25) mg/dL Glucose (74-99) mg/dL POC Glucose (mg/dL) 235 H 327 H 314 H (70-110) mg/dL 10/18/24 10/18/24 10/18/24 Range/Units 05:51 06:48 06:48 RBC 2.42 L (4.40-5.60) 10*6/uL Hgb 8.2 L (13.0-17.0) g/dL Hct 25.1 L (39.6-50.0) % MCV 103.7 H (80.0-97.0) fL MCH 33.9 H (27.0-32.0) pg Immature Gran # 0.16 H (0.00-0.04) 10*3/uL Eosinophils # 0.00 L (0.04-0.35) 10*3/uL Sodium 134 L (137-145) mmol/L Creatinine 0.41 L (0.66-1.25) mg/dL Glucose 219 H (74-99) mg/dL POC Glucose (mg/dL) 243 H (70-110) mg/dL Microbiology - Last 24 Hours (Table) 10/12/24 19:25 Blood Culture - Final Blood 10/13/24 19:00 Legionella Culture - Preliminary Sputum
[2024-10-19 00:07] LABS: Glucose,Whole Blood 319 mg/dL (70-110)
[2024-10-19 05:59] LABS: Glucose,Whole Blood 248 mg/dL (70-110)
--- NOTE | 2024-10-19 08:55 | P.CONS ---
History of Present Illness - Reason for Consult Consult date: 10/18/24 Oropharyngeal Cancer - Chief Complaint dysphgia , headache - History of Present Illness Mr. Alexander is 74 years old a male who presented with progressive dysphasia, hoarseness, weight loss, and headaches over about 6 months. he was referred to Dr. Colby and then Dr. Velazquez. He was noted to have a fixed left vocal cord. CT neck on 12/2023 purportedly demonstrated a left oropharyngeal lesion. PET/CT on 02/27/2024 demonstrated left lateral pharyngeal lesion with SUV to 11.2 (appears submucosal). There was also a left neck level II node measuring 1.1 cm with SUV to 15.6. There were also 5 lung nodules which had increased in size from 12/2023, with SUV up to 5.1. 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 The focus was 2.5 cm and with KRISTEN. He underwent PEG tube placement. His disease is PDL-1 15-20%, NGS showed no significant mutation, MINDY, low TMB. On 04/28/2024 he started weekly carbo/taxol and keytruda. He received 4 cycles, last dose 07/07/24. On 07/13/2024 PET scan showed some disease improvement. Currently admitted for weakness, AMS. Over the last several days he has been having progressive weakness and confusion. He has been seen by Nephrology for hyponatremia, Infectious Disease for pneumonia left suprahilar infiltrate. CTA showed scattered pulmonary nodules largest 1 previously 8 mm now 21 mm. Additional scattered nodules increasing in size and number mediastinal lymph node prominence compared to July 13, 2024 imaging Brain MRI is reporting left parapharyngeal mass appears larger than on the PET scan in June, may have some extension into through the jugular foramen to the cerebellar pontine angle. Vasogenic edema appears to be in the adjacent cerebellum with some mild mass effect. Review of Systems Constitutional: Reports as per HPI Ears, nose, mouth and throat: Reports as per HPI, Reports hoarseness, Reports neck lump Cardiovascular: Reports as per HPI Respiratory: Reports as per HPI Genitourinary: Reports as per HPI Musculoskeletal: Reports as per HPI Integumentary: Reports as per HPI Neurological: Reports as per HPI Psychiatric: Reports as per HPI Endocrine: Reports as per HPI Hematologic/Lymphatic: Reports as per HPI Past Medical History Past Medical History: Atrial Fibrillation, Cancer, Diabetes Mellitus, Hyperlipidemia, Myocardial Infarction ([place]) Additional Past Medical History / Comment(s): Spine CA C1/C2, CVA, Last Myocardial Infarction Date:: 2010 History of Any Multi-Drug Resistant Organisms: None Reported Past Surgical History: Joint Replacement Additional Past Surgical History / Comment(s): Peg tube, Past Anesthesia/Blood Transfusion Reactions: No Reported Reaction Past Psychological History: No Psychological Hx Reported Smoking Status: Never smoker Past Alcohol Use History: None Reported Past Drug Use History: None Reported Medications and Allergies Home Medications Medication Instructions Recorded Confirmed Type Apixaban [Eliquis] 5 mg PEG/G-TUBE BID 07/21/24 10/12/24 History Atorvastatin [Lipitor] 20 mg PEG/G-TUBE HS 07/21/24 10/12/24 History HYDROcodone/APAP 10-325MG [Crandall 1 tab PEG/G-TUBE QID PRN 07/21/24 10/12/24 History 10-325] Esomeprazole Magnesium [NexIUM] 20 mg PEG/G-TUBE BID PRN 10/12/24 10/12/24 History Furosemide [Lasix] 40 mg PEG/G-TUBE DAILY PRN 10/12/24 10/12/24 History Metoprolol Tartrate [Lopressor] 12.5 mg PEG/G-TUBE BID 10/12/24 10/12/24 History Ondansetron Odt [Zofran Odt] 8 mg PEG/G-TUBE Q8H PRN 10/12/24 10/12/24 History Potassium Chloride Oral Liquid 40 meq PEG/G-TUBE DAILY 10/12/24 10/12/24 History Allergies Allergy/AdvReac Type Severity Reaction Status Date / Time Mushroom Allergy Unknown Verified 10/12/24 19:58 mushroom Allergy Unknown Verified 10/12/24 19:58 Physical Exam Vitals: Vital Signs Temp Pulse Pulse Pulse Resp BP Pulse Ox 10/19/24 03:29 97.4 F L 102 H 16 131/71 95 10/19/24 01:28 87 92 16 10/18/24 23:06 97.6 F 87 16 122/71 95 10/18/24 21:39 94 10/18/24 21:29 92 10/18/24 19:50 97.5 F L 91 92 16 144/80 94 L 10/18/24 16:28 90 10/18/24 16:15 90 10/18/24 15:15 98.2 F 103 H 16 111/75 100 10/18/24 12:05 98 10/18/24 12:00 98 F 81 18 139/74 98 10/18/24 11:57 94 10/18/24 09:00 97.7 F 97 16 114/70 97 10/18/24 08:48 90 10/18/24 08:39 92 Intake and Output 10/18/24 10/19/24 10/19/24 22:59 06:59 14:59 Intake Total 10 10 Output Total 280 400 Balance -270 -390 Intake: IV 10 10 Invasive Line 3 10 10 Output: Urine 280 400 Other: Voiding Method Toilet Toilet Urinal Urinal Weight 81.1 kg - Constitutional General appearance: average body habitus - Neurologic Neurologic: CNII-XII intact - Psychiatric Psychiatric: A&O x's 3 Results CBC & Chem 7: 10/18/24 06:48 10/18/24 06:48 Labs: Abnormal Lab Results - Last 24 Hours (Table) 10/18/24 10/18/24 10/18/24 Range/Units 06:48 06:48 06:48 RBC 2.42 L (4.40-5.60) 10*6/uL Hgb 8.2 L (13.0-17.0) g/dL Hct 25.1 L (39.6-50.0) % MCV 103.7 H (80.0-97.0) fL MCH 33.9 H (27.0-32.0) pg Immature Gran # 0.16 H (0.00-0.04) 10*3/uL Eosinophils # 0.00 L (0.04-0.35) 10*3/uL Retic Count 2.93 H (0.10-1.80) % Sodium 134 L (137-145) mmol/L Creatinine 0.41 L (0.66-1.25) mg/dL Glucose 219 H (74-99) mg/dL POC Glucose (mg/dL) (70-110) mg/dL Iron 50 L (65-175) UG/DL Transferrin 174.0 L (204.0-354.0) mg/dL 05/07/25 05/07/25 05/08/25 Range/Units 11:53 17:02 00:06 RBC (4.40-5.60) 10*6/uL Hgb (13.0-17.0) g/dL Hct (39.6-50.0) % MCV (80.0-97.0) fL MCH (27.0-32.0) pg Immature Gran # (0.00-0.04) 10*3/uL Eosinophils # (0.04-0.35) 10*3/uL Retic Count (0.10-1.80) % Sodium (137-145) mmol/L Creatinine (0.66-1.25) mg/dL Glucose (74-99) mg/dL POC Glucose (mg/dL) 289 H 265 H 319 H (70-110) mg/dL Iron (65-175) UG/DL Transferrin (204.0-354.0) mg/dL 10/19/24 Range/Units 05:58 RBC (4.40-5.60) 10*6/uL Hgb (13.0-17.0) g/dL Hct (39.6-50.0) % MCV (80.0-97.0) fL MCH (27.0-32.0) pg Immature Gran # (0.00-0.04) 10*3/uL Eosinophils # (0.04-0.35) 10*3/uL Retic Count (0.10-1.80) % Sodium (137-145) mmol/L Creatinine (0.66-1.25) mg/dL Glucose (74-99) mg/dL POC Glucose (mg/dL) 248 H (70-110) mg/dL Iron (65-175) UG/DL Transferrin (204.0-354.0) mg/dL Microbiology - Last 24 Hours (Table) 10/12/24 19:25 Blood Culture - Final Blood Abdominal x-ray: report reviewed CT scan - chest: report reviewed MRI - head: report reviewed Assessment and Plan Assessment: a 73-year-old male with a stage IV (cT2, pN2a, 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 De Jesus, due to the disease progression and the effects of the tumor on the brain cerebellum , we recommended to start radiotherapy to cover the disease in the head and neck and control the growing of the tumor. I discussed with the family and the patient about the rationale , the technique and the potential acute and late side effects of radiotherapy to the head and neck. We are planning to do simulation today, to start the treatment concurrently with chemotherapy in the following week.
[2024-10-19 09:18] LABS: Basophils # (A) 0.02 10*3/uL (0.00-0.10); Basophils % (A) 0.3 %; HCT 26.7 % (39.6-50.0); Lymphocytes # (A) 1.13 10*3/uL (0.90-5.00); Lymphocytes % (A) 14.9 %; MCH 35.2 pg (27.0-32.0); MCHC 33.7 g/dL (32.0-37.0); MCV 104.3 fL (80.0-97.0); Mean Platelet Volume 10.4 fL (9.5-12.2); Monocytes # (A) 0.46 10*3/uL (0.20-1.00); Monocytes % (A) 6.1 %; Neutrophils # (A) 5.81 10*3/uL (1.80-7.70); Neutrophils % (A) 76.8 %; Platelet Count 328 10*3/uL (140-440); RBC 2.56 10*6/uL (4.40-5.60); RDW 15.1 % (11.5-14.5); WBC 7.56 10*3/uL (4.50-10.00)
[2024-10-19 09:39] LABS: African American GFR (CKD) >90 (>60 ml/min/1.73 sqM); Anion Gap 8 mmol/L; Blood Urea Nitrogen 23 mg/dL (9-20); Calcium 8.6 mg/dL (8.4-10.2); Carbon Dioxide 26 mmol/L (22-30); Chloride 101 mmol/L (98-107); Glucose 223 mg/dL (74-99); Non-African American GFR(CKD) >90 (>60 ml/min/1.73 sqM); Potassium 4.4 mmol/L (3.5-5.1); Sodium 135 mmol/L (137-145)
--- NOTE | 2024-10-19 10:11 | P.PN ---
Subjective Patient is seen in follow-up for hyponatremia. Sodium level 135 today. Receiving tube feeds. Vital signs are stable. General: No acute distress. HEENT: Head exam is unremarkable. LUNGS: No audible rhonchi or wheezes. HEART: Rate and Rhythm are regular. ABDOMEN: Nontender. EXTREMITITES: No edema. Objective - Vital Signs Vital signs: Vital Signs Temp 97.7 F 10/19/24 08:30 Pulse 94 10/19/24 09:33 Resp 16 10/19/24 08:30 BP 145/80 10/19/24 08:30 Pulse Ox 96 10/19/24 09:20 FiO2 Intake & Output 10/18/24 10/19/24 10/19/24 18:59 06:59 18:59 Intake Total 1460 20 10 Output Total 680 Balance 1460 -660 10 Weight 80 kg 81.1 kg Intake: IV 20 20 10 Invasive Line 3 20 20 10 Tube Feeding 1440 Output: Urine 680 Other: Voiding Method Toilet Toilet Toilet Urinal Urinal Urinal - Labs CBC & Chem 7: 10/19/24 08:14 10/19/24 08:14 Labs: Abnormal Lab Results - Last 24 Hours (Table) 10/18/24 10/18/24 10/18/24 Range/Units 06:48 06:48 11:53 RBC (4.40-5.60) 10*6/uL Hgb (13.0-17.0) g/dL Hct (39.6-50.0) % MCV (80.0-97.0) fL MCH (27.0-32.0) pg Immature Gran # (0.00-0.04) 10*3/uL Eosinophils # (0.04-0.35) 10*3/uL Retic Count 2.93 H (0.10-1.80) % Sodium (137-145) mmol/L BUN (9-20) mg/dL Creatinine (0.66-1.25) mg/dL Glucose (74-99) mg/dL POC Glucose (mg/dL) 289 H (70-110) mg/dL Iron 50 L (65-175) UG/DL Transferrin 174.0 L (204.0-354.0) mg/dL 10/18/24 10/19/24 10/19/24 Range/Units 17:02 00:06 05:58 RBC (4.40-5.60) 10*6/uL Hgb (13.0-17.0) g/dL Hct (39.6-50.0) % MCV (80.0-97.0) fL MCH (27.0-32.0) pg Immature Gran # (0.00-0.04) 10*3/uL Eosinophils # (0.04-0.35) 10*3/uL Retic Count (0.10-1.80) % Sodium (137-145) mmol/L BUN (9-20) mg/dL Creatinine (0.66-1.25) mg/dL Glucose (74-99) mg/dL POC Glucose (mg/dL) 265 H 319 H 248 H (70-110) mg/dL Iron (65-175) UG/DL Transferrin (204.0-354.0) mg/dL 10/19/24 10/19/24 Range/Units 08:14 08:14 RBC 2.56 L (4.40-5.60) 10*6/uL Hgb 9.0 L (13.0-17.0) g/dL Hct 26.7 L (39.6-50.0) % MCV 104.3 H (80.0-97.0) fL MCH 35.2 H (27.0-32.0) pg Immature Gran # 0.14 H (0.00-0.04) 10*3/uL Eosinophils # 0.00 L (0.04-0.35) 10*3/uL Retic Count (0.10-1.80) % Sodium 135 L (137-145) mmol/L BUN 23 H (9-20) mg/dL Creatinine 0.39 L (0.66-1.25) mg/dL Glucose 223 H (74-99) mg/dL POC Glucose (mg/dL) (70-110) mg/dL Iron (65-175) UG/DL Transferrin (204.0-354.0) mg/dL Assessment and Plan Plan: Assessment: 1. Hypovolemic hyponatremia improving with IV fluids. Sodium level 135 today. 2. History of head and neck cancer status postchemotherapy. 3. Dysphagia, receiving PEG tube feeds. 4. Coronary artery disease. 5. A-fib. Plan: Maintain tube feeds with minimal water flushes. Potential radiation therapy this admission.
--- NOTE | 2024-10-19 11:17 | P.PN ---
Subjective Progress Note Date: 10/19/24 Principal diagnosis: Pneumonia, weakness. History of squamous cell carcinoma of the head/neck In follow-up today patient reporting he feels better then on admit, steroids have helped with the TONG some. No new neurological symptoms to report. He is tolerating PEG tubes without nausea, abdominal pain or bloating, no acute changes in bowel habits. Objective - Vital Signs Vital signs: Vital Signs Temp 97.7 F 10/19/24 08:30 Pulse 94 10/19/24 09:33 Resp 16 10/19/24 08:30 BP 145/80 10/19/24 08:30 Pulse Ox 96 10/19/24 09:20 FiO2 Intake & Output 10/18/24 10/19/24 10/19/24 18:59 06:59 18:59 Intake Total 1460 20 10 Output Total 680 Balance 1460 -660 10 Weight 80 kg 81.1 kg Intake: IV 20 20 10 Invasive Line 3 20 20 10 Tube Feeding 1440 Output: Urine 680 Other: Voiding Method Toilet Toilet Toilet Urinal Urinal Urinal - Constitutional General appearance: Present: average body habitus, cooperative, no acute distress - EENT Eyes: Present: anicteric sclerae, EOMI ENT: Present: hearing grossly normal - Respiratory Details: resp unlabored at rest - Cardiovascular Details: skin warm, well perfused - Peripheral edema leg Peripheral Edema: bilateral: None - Integumentary Integumentary: Present: normal - Neurologic Neurologic: Present: CNII-XII intact - Musculoskeletal Musculoskeletal: Present: generalized weakness, strength equal bilaterally - Psychiatric Psychiatric: Present: A&O x's 3, appropriate affect, intact judgment & insight - Labs CBC & Chem 7: 10/19/24 08:14 10/19/24 08:14 Labs: Abnormal Lab Results - Last 24 Hours (Table) 10/18/24 10/18/24 10/18/24 Range/Units 06:48 06:48 11:53 RBC (4.40-5.60) 10*6/uL Hgb (13.0-17.0) g/dL Hct (39.6-50.0) % MCV (80.0-97.0) fL MCH (27.0-32.0) pg Immature Gran # (0.00-0.04) 10*3/uL Eosinophils # (0.04-0.35) 10*3/uL Sodium (137-145) mmol/L BUN (9-20) mg/dL Creatinine (0.66-1.25) mg/dL Glucose (74-99) mg/dL POC Glucose (mg/dL) 289 H (70-110) mg/dL Iron 50 L (65-175) UG/DL Transferrin 174.0 L (204.0-354.0) mg/dL RBC Folate 1,092 H (280 - 791) ng/mL 10/18/24 10/19/24 10/19/24 Range/Units 17:02 00:06 05:58 RBC (4.40-5.60) 10*6/uL Hgb (13.0-17.0) g/dL Hct (39.6-50.0) % MCV (80.0-97.0) fL MCH (27.0-32.0) pg Immature Gran # (0.00-0.04) 10*3/uL Eosinophils # (0.04-0.35) 10*3/uL Sodium (137-145) mmol/L BUN (9-20) mg/dL Creatinine (0.66-1.25) mg/dL Glucose (74-99) mg/dL POC Glucose (mg/dL) 265 H 319 H 248 H (70-110) mg/dL Iron (65-175) UG/DL Transferrin (204.0-354.0) mg/dL RBC Folate (280 - 791) ng/mL 10/19/24 10/19/24 Range/Units 08:14 08:14 RBC 2.56 L (4.40-5.60) 10*6/uL Hgb 9.0 L (13.0-17.0) g/dL Hct 26.7 L (39.6-50.0) % MCV 104.3 H (80.0-97.0) fL MCH 35.2 H (27.0-32.0) pg Immature Gran # 0.14 H (0.00-0.04) 10*3/uL Eosinophils # 0.00 L (0.04-0.35) 10*3/uL Sodium 135 L (137-145) mmol/L BUN 23 H (9-20) mg/dL Creatinine 0.39 L (0.66-1.25) mg/dL Glucose 223 H (74-99) mg/dL POC Glucose (mg/dL) (70-110) mg/dL Iron (65-175) UG/DL Transferrin (204.0-354.0) mg/dL RBC Folate (280 - 791) ng/mL Assessment and Plan (1) Weak Current Visit: Yes Status: Acute Priority: High Code(s): R53.1 - WEAKNESS SNOMED Code(s): 37365201 (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 Current Visit: Yes Status: Chronic Priority: High Code(s): C06.9 - MALIGNANT NEOPLASM OF MOUTH, UNSPECIFIED; C77.0 - SEC AND UNSP MALIG NEOPLASM OF NODES OF HEAD, FACE AND NECK SNOMED Code(s): 528693931 (3) Anemia Current Visit: Yes Status: Chronic Priority: Medium Code(s): D64.9 - ANEMIA, UNSPECIFIED SNOMED Code(s): 024560409 (4) Thrush, oral Current Visit: Yes Status: Chronic Priority: Medium Code(s): B37.0 - CANDIDAL STOMATITIS SNOMED Code(s): 29653338 Plan: - Weakness - Likely multifactorial including multiple hospitalizations in the last 3 months for infections and findings on the CT scan brain. -Pt feeling a little better being in steroids -Plans to participate with PT/OT outpt Malignant neoplasm of the oral cavity - Diagnosis and treatment as documented in consult - Brain MRI reports left parapharyngeal mass, appears larger than on the PET scan in June, may have some extension into through the jugular foramen to the cerebellar pontine angle. Vasogenic edema appears to be in the adjacent cerebellum with some mild mass effect. Poor vascular flow within the left jugular foramen. Unfortunately, imaging is showing disease progression. Steroids have been initiated with some improvement in symptoms -Radiation Oncology has seen pt, plans for palliative radiation - Patient's performance status overall is fair other than the weakness. Medical Oncologist recommending chemo after radiation complete. Reviewed drugs, frequency of treatment and follow up. Pt and are agreeable to start treatment outpt once he has completed radiation. Macrocytic anemia -macrocytic anemia work up ordered-so significant deficiencies noted -transfuse for a Hgb <7 or if pt is symptomatic. -Hgb stable at 9 today Oral thrush -Cont oral nystatin treatment
[2024-10-19 12:09] LABS: Glucose,Whole Blood 259 mg/dL (70-110)
--- NOTE | 2024-10-19 12:52 | P.PN ---
Subjective Progress Note Date: 10/19/24 Principal diagnosis: Pneumonia. 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 He had been treated with Taxol carboplatin and subsequently on Keytruda. He was admitted here back in July 2024 with neutropenic fever and sepsis with acute toxic metabolic encephalopathy. He was discharged to home August 23, 2024. In the interim he had been at [facility] approximately 1-1/2 months ago. He did have a PEG tube placed. No other details available at this time. He was brought into the emergency room yesterday with progressive weakness and altered mental status. His states he has been getting weaker and weaker and confused and just staring off into space. CT scan of the brain revealed interval decreased attenuation within the left cerebral hemisphere. This could reflect ischemic insult versus underlying lesion. Left-sided mastoiditis. Chest x-ray shows nodular infiltrate in the left suprahilar region and right infrahilar region. CT angiogram revealed no evidence of pulmonary embolism. There is progression of metastatic disease compared to June 2024. Increasing number of pulmonary nodules. Mediastinum demonstrates multiple lymph nodes which are slightly more prominent and increased compared to June 2024. Mild pulmonary vascular congestion. White count 9.6. Hemoglobin 9.4. Platelets 265. Sodium 126. Potassium 4.8. Bicarb 29. BUN 13. Creatinine 0.37. Glucose 133. He is seen today in consultation on the selective care unit. He is currently awake. He is alert but confused to time and place. Very poor historian. Unable to obtain any significant information. Maintaining good O2 saturations in the 90s on 5 L/min per nasal cannula. He is been afebrile. Slightly tachycardic. No tachypnea. The patient is seen today October 15, 2024 in follow-up on the regular medical floor. He is currently resting in bed. A bit more awake and alert today compared to yesterday. His is at the bedside. He is maintaining O2 saturations in the mid 90s on 5 L/min per nasal cannula. He was afebrile. Hemodynamically stable. Blood culture pending. Sputum culture pending. White count 6.6. Hemoglobin 8.6. Platelets 219. Sodium 131. Potassium 4.2. Bicarb 25. BUN 11. Creatinine 0.34. Glucose 205. He remains on Decadron. Anticoagulated with Eliquis. Progress note dated October 16, 2024. 74-year-old male seen today in room 382. The patient is currently on 3 L of oxygen. He is getting saline at 50 cc an hour, and Jevity at 60 cc an hour. He is currently resting in bed. No acute distress. No respiratory distress. No family members in the room today. Current laboratory data includes a white count 11.2, hemoglobin 8.8, hematocrit 25.9, and a platelet count of 271,000. Sodium 133, potassium 4.3, chlorides 97, CO2 25, BUN 15, creatinine 0.39. Glucose is 167. Calcium 8.8. Magnesium 1.9. Progress note dated October 17, 2024. 74-year-old male seen today in room 382. Currently, the patient is resting comfortably in bed. He is on 3 L of oxygen. He is getting saline at 50 cc an hour. He is also getting Jevity at 60 cc an hour. According to the nurses, the patient had an uneventful night. Current laboratory data includes a white count of 8.1, hemoglobin 8, hematocrit 24.3, and a platelet count of 224,000. Sodium 136, potassium 4.4, chlorides 102, CO2 29, BUN 20, creatinine 0.40. Glucose is 213. Calcium 8.4, magnesium 2.0. Brain CT showed a left parapharyngeal mass, with some extension into the jugular foramen to the cerebellar pontine angle. There is vasogenic edema, in the adjacent cerebellum, with mild mass effect. Poor vascular flow within the left jugular foramen. There is evidence of both pansinusitis, and left mastoiditis. Progress note dated October 18, 2024. 74-year-old male seen again in room 382. The patient is currently on 2 L of oxygen. He is getting Jevity at 60 cc an hour. No additional IV fluids. He is resting comfortably in bed. No acute distress. Laboratory data includes a white count 7.4, hemoglobin 8.2, hematocrit 25.1. Platelet count is 277,000. Sodium 134, potassium 4.3, chlorides 100, CO2 28, BUN 20, creatinine 0.41. Glucose is 289. Calcium is 8.4. No chest x-ray today. Progress note dated October 19, 2024. 74-year-old male seen again in room 382. He continues on oxygen at 2 L. He is not receiving any IV fluids. He is getting Jevity at 60 cc an hour. He is doing about the same, with no specific complaints. He is resting comfortably in bed. Current laboratory data includes a white count of 7.6, hemoglobin 9, hematocrit 26.7, and a platelet count of 328,000. Sodium 135, potassium 4.4, chlorides 101, CO2 26, BUN 23, and creatinine 0.39. Glucose is 259. Calcium 8.6. Magnesium 2.0. Objective - Vital Signs Vital signs: Vital Signs Temp 97.7 F 10/19/24 08:30 Pulse 94 10/19/24 09:33 Resp 16 10/19/24 08:30 BP 145/80 10/19/24 08:30 Pulse Ox 96 10/19/24 09:20 FiO2 Intake & Output 10/18/24 10/19/24 10/19/24 18:59 06:59 18:59 Intake Total 1460 20 10 Output Total 680 Balance 1460 -660 10 Weight 80 kg 81.1 kg Intake: IV 20 20 10 Invasive Line 3 20 20 10 Tube Feeding 1440 Output: Urine 680 Other: Voiding Method Toilet Toilet Toilet Urinal Urinal Urinal - Exam No acute distress, oriented 3. Currently on 2 L nasal cannula. HEENT examination is grossly unremarkable. Mucous membranes are moist. No oral lesions. Neck supple. Full range of motion. No adenopathy thyromegaly or neck vein distention. Cardiovascular examination reveals regular rhythm rate. S1-S2 normal. No S3 or S4. No discernible murmur noted. Lungs reveal bilateral scattered rhonchi. No wheezes or crackles. Breath sounds equal. Abdomen soft bowel sounds are heard. No masses or tenderness. Extremities are intact. No cyanosis clubbing or edema. Skin is without rash or lesion. Neurologic examination is brief but nonfocal. - Labs CBC & Chem 7: 10/19/24 08:14 10/19/24 08:14 Labs: Abnormal Lab Results - Last 24 Hours (Table) 10/18/24 10/18/24 10/18/24 Range/Units 06:48 06:48 17:02 RBC (4.40-5.60) 10*6/uL Hgb (13.0-17.0) g/dL Hct (39.6-50.0) % MCV (80.0-97.0) fL MCH (27.0-32.0) pg Immature Gran # (0.00-0.04) 10*3/uL Eosinophils # (0.04-0.35) 10*3/uL Sodium (137-145) mmol/L BUN (9-20) mg/dL Creatinine (0.66-1.25) mg/dL Glucose (74-99) mg/dL POC Glucose (mg/dL) 265 H (70-110) mg/dL Iron 50 L (65-175) UG/DL Transferrin 174.0 L (204.0-354.0) mg/dL RBC Folate 1,092 H (280 - 791) ng/mL 10/19/24 10/19/24 10/19/24 Range/Units 00:06 05:58 08:14 RBC 2.56 L (4.40-5.60) 10*6/uL Hgb 9.0 L (13.0-17.0) g/dL Hct 26.7 L (39.6-50.0) % MCV 104.3 H (80.0-97.0) fL MCH 35.2 H (27.0-32.0) pg Immature Gran # 0.14 H (0.00-0.04) 10*3/uL Eosinophils # 0.00 L (0.04-0.35) 10*3/uL Sodium (137-145) mmol/L BUN (9-20) mg/dL Creatinine (0.66-1.25) mg/dL Glucose (74-99) mg/dL POC Glucose (mg/dL) 319 H 248 H (70-110) mg/dL Iron (65-175) UG/DL Transferrin (204.0-354.0) mg/dL RBC Folate (280 - 791) ng/mL 10/19/24 10/19/24 Range/Units 08:14 12:08 RBC (4.40-5.60) 10*6/uL Hgb (13.0-17.0) g/dL Hct (39.6-50.0) % MCV (80.0-97.0) fL MCH (27.0-32.0) pg Immature Gran # (0.00-0.04) 10*3/uL Eosinophils # (0.04-0.35) 10*3/uL Sodium 135 L (137-145) mmol/L BUN 23 H (9-20) mg/dL Creatinine 0.39 L (0.66-1.25) mg/dL Glucose 223 H (74-99) mg/dL POC Glucose (mg/dL) 259 H (70-110) mg/dL Iron (65-175) UG/DL Transferrin (204.0-354.0) mg/dL RBC Folate (280 - 791) ng/mL Assessment and Plan Assessment: Acute hypoxic respiratory failure secondary to progression of metastatic head and neck cancer. Chest x-ray shows nodular infiltrate in the left suprahilar region and right infrahilar region. CT angiogram revealed no evidence of pulmonary embolism. There is progression of metastatic disease compared to June 2024. Increasing number of pulmonary nodules. Mediastinum demonstrates multiple lymph nodes which are slightly more prominent and increased compared to June 2024. Altered mental status secondary to above. CT scan of the brain revealed interval decreased attenuation within the left cerebral hemisphere. This could reflect ischemic insult versus underlying lesion. Left-sided mastoiditis. History of metastatic head and neck cancer diagnosed back in April 2024. Progressive weakness and debility. Prolonged hospitalization at [facility] due to sepsis and pneumonia in August/September 2024. History of neutropenic fever with severe sepsis, July 2024. History of dysphagia secondary to above, PEG tube placed. History of diabetes mellitus, type II. History of chronic atrial fibrillation. Hyperlipidemia. Non smoker. Poor overall functional performance. Plan: Plan dated October 16, 2024. The patient is seen today in room 382. The patient continues on nasal O2 at 3 L. He is getting saline at 50 cc an hour, and Jevity, tube feeds, at 60 cc an hour. He is a bit more awake and alert. Labs, x-rays, medications are reviewed. We will continue to follow make recommendations along the way. The patient has multiple pulmonary nodules, seen on CT scan. Pneumonia is much less likely as procalcitonin level is negative. We will continue to follow. Prognosis is poor. Dictation was produced using [employer] software. Please excuse any grammatical, word or spelling errors. Plan dated October 17, 2024. The patient is seen today in room 282. He remains about the same as he did yesterday. He continues on nasal O2 3 L. He is getting saline at 50 cc an ho ur. He is also receiving Jevity 60 cc an hour. Labs, x-rays, and medications are reviewed. The patient's overall prognosis remains poor. CODE STATUS should be addressed by the primary service. No additional recommendations are made. Dictation was produced using [email or web address] software. Please excuse any grammatical, word or spelling errors. Plan dated October 18, 2024. The patient remains relatively stable. Labs, x-rays, medications are reviewed. The patient is currently on 2 L. He is getting Jevity at 60 cc an hour. Patient is not receiving any additional IV fluids. We will continue to follow make recommendations along the way. Prognosis is guarded. CODE STATUS should be addressed by the primary service. Dictation was produced using [email or web address] software. Please excuse any grammatical, word or spelling errors. Plan dated October 19, 2024. The patient was seen by radiation oncology. The plans are for palliative radiotherapy, for this patient. Labs, x-rays, medications are reviewed. The patient currently is on 2 L. No respiratory difficulty. He is not receiving an y IV fluids. He does have a PEG tube in place. He is receiving Jevity at 60 cc an hour. Labs, x-rays, and medications are reviewed. We will continue to follow the patient, make recommendations. Prognosis is poor. He remains a full code. CODE STATUS should be addressed, by the primary service. Time with Patient: Less than 30
--- NOTE | 2024-10-19 16:04 | P.PN ---
Subjective Progress Note Date: 10/17/24 Principal diagnosis: Reason for follow-up is abnormal x-ray and question of pneumonia Patient is a 74-year-old male with a past medical history significant for diabetes mellitus atrial fibrillation hyperlipidemia [place], neck cancer status post chemotherapy, presenting to the hospital for evaluation of generalized weakness and confusion, patient did have a chest x-ray concerning for possible left suprahilar and right infrahilar infiltrate concerning for pneumonia however subsequent repeated have CT angiogram of the chest that was negative for PE and did shows progressive metastatic disease without any consolidation. On today's evaluation that is 10/17/2024,the patient remains to be afebrile, patient is on 3 L nasal cannula supplemental oxygen and denies any shortness of breath no chest pain or any worsening cough.Patient denies having any nausea or vomiting, no abdominal pain and no diarrhea has been reported. Patient white count normalized to 8.06, creatinine 0.40 Objective - Vital Signs Vital signs: Vital Signs Temp 98.0 F 10/17/24 08:00 Pulse 82 10/17/24 14:00 Resp 16 10/17/24 14:00 BP 131/80 10/17/24 12:00 Pulse Ox 99 10/17/24 12:00 FiO2 Intake & Output 10/16/24 10/17/24 10/17/24 18:59 06:59 18:59 Intake Total 620 320 20 Output Total 725 Balance -105 320 20 Weight 78.5 kg 79 kg Intake: IV 20 20 20 Invasive Line 3 20 20 20 Tube Feeding 600 300 Output: Urine 725 Other: Voiding Method Toilet Toilet Toilet Urinal Urinal Urinal # Voids 1 # Bowel Movements 1 - Exam GENERAL DESCRIPTION: An elderly male lying in bed in no distress RESPIRATORY SYSTEM: Unlabored breathing , decreased breath sounds at bases HEART: S1 S2 regular rate and rhythm , ABDOMEN: Soft , no tenderness EXTREMITIES: No edema feet - Labs CBC & Chem 7: 10/19/24 08:14 10/19/24 08:14 Labs: Abnormal Lab Results - Last 24 Hours (Table) 10/16/24 10/16/24 10/17/24 Range/Units 16:39 23:29 06:27 RBC (4.40-5.60) 10*6/uL Hgb (13.0-17.0) g/dL Hct (39.6-50.0) % MCV (80.0-97.0) fL MCH (27.0-32.0) pg Immature Gran # (0.00-0.04) 10*3/uL Eosinophils # (0.04-0.35) 10*3/uL Sodium (137-145) mmol/L Creatinine (0.66-1.25) mg/dL Glucose (74-99) mg/dL POC Glucose (mg/dL) 257 H 339 H 241 H (70-110) mg/dL 10/17/24 10/17/24 10/17/24 Range/Units 06:47 06:47 11:49 RBC 2.32 L (4.40-5.60) 10*6/uL Hgb 8.0 L (13.0-17.0) g/dL Hct 24.3 L (39.6-50.0) % MCV 104.7 H (80.0-97.0) fL MCH 34.5 H (27.0-32.0) pg Immature Gran # 0.09 H (0.00-0.04) 10*3/uL Eosinophils # 0.00 L (0.04-0.35) 10*3/uL Sodium 136 L (137-145) mmol/L Creatinine 0.40 L (0.66-1.25) mg/dL Glucose 213 H (74-99) mg/dL POC Glucose (mg/dL) 235 H (70-110) mg/dL Microbiology - Last 24 Hours (Table) 10/13/24 19:00 Legionella Culture - Preliminary Sputum 10/13/24 19:00 Gram Stain - Final Sputum Sputum Culture - Final Corynebacterium striatum group Assessment and Plan (1) Abnormal chest x-ray Current Visit: Yes Status: Acute Code(s): R93.89 - ABNORMAL FINDINGS ON DX IMAGING OF OTH BODY STRUCTURES SNOMED Code(s): 096230702 (2) Pneumonia Current Visit: No Status: Acute Priority: High Code(s): J18.9 - PNEUMONIA, UNSPECIFIED ORGANISM SNOMED Code(s): 288240301 (3) Leukocytosis Current Visit: Yes Status: Acute Code(s): D72.829 - ELEVATED WHITE BLOOD CELL COUNT, UNSPECIFIED SNOMED Code(s): 743006154 Plan: 1patient presented to hospital with progressive weakness in this patient who did have a history of head and neck cancer has been on chemotherapy now with evidence of abnormality seen on the chest x-ray with a question of possible metastatic disease clinically not behaving as pneumonia in this patient currently with no fever elevated white count other etiologies could be PE [address] of the chest did not show any consolidation with worsening metastatic disease 3patient blood culture has been negative sputum is growing Corynebacterium stratum however the patient did have normal procalcitonin and CT did not show any consolidation we will monitor him patient closely off antibiotic 4leukocytosis more likely steroid related has normalized and will be monitored closely Dictation was produced using [employer] dictation software. please excuse any grammatical, word or spelling errors. Time with Patient: Less than 30
--- NOTE | 2024-10-19 16:04 | P.PN ---
Subjective Progress Note Date: 10/18/24 Principal diagnosis: Reason for follow-up is abnormal x-ray and question of pneumonia Patient is a 74-year-old male with a past medical history significant for diabetes mellitus atrial fibrillation hyperlipidemia [place], neck cancer status post chemotherapy, presenting to the hospital for evaluation of generalized weakness and confusion, patient did have a chest x-ray concerning for possible left suprahilar and right infrahilar infiltrate concerning for pneumonia however subsequent repeated have CT angiogram of the chest that was negative for PE and did shows progressive metastatic disease without any consolidation. On today's evaluation that is 10/18/2024, the patient continues to be afebrile, the patient is on room air and breathing comfortably, the Pt denies having any chest pain did have occasional cough, the patient denies having any abdominal pain no vomiting or any diarrhea. Patient white count 7.44 creatinine 0.41 Objective - Vital Signs Vital signs: Vital Signs Temp 98.2 F 10/18/24 15:15 Pulse 90 10/18/24 16:28 Resp 16 10/18/24 15:15 BP 111/75 10/18/24 15:15 Pulse Ox 100 10/18/24 15:15 FiO2 Intake & Output 10/18/24 10/18/24 10/19/24 06:59 18:59 06:59 Intake Total 20 1460 Balance 20 1460 Weight 80 kg 80 kg Intake: IV 20 20 Invasive Line 3 20 20 Tube Feeding 1440 Other: Voiding Method Toilet Toilet Urinal Urinal # Voids 1 # Bowel Movements 2 - Exam GENERAL DESCRIPTION: An elderly male lying in bed in no distress RESPIRATORY SYSTEM: Unlabored breathing , decreased breath sounds at bases HEART: S1 S2 regular rate and rhythm , ABDOMEN: Soft , no tenderness EXTREMITIES: No edema feet - Labs CBC & Chem 7: 10/19/24 08:14 10/19/24 08:14 Labs: Abnormal Lab Results - Last 24 Hours (Table) 10/17/24 10/18/24 10/18/24 Range/Units 23:52 05:51 06:48 RBC 2.42 L (4.40-5.60) 10*6/uL Hgb 8.2 L (13.0-17.0) g/dL Hct 25.1 L (39.6-50.0) % MCV 103.7 H (80.0-97.0) fL MCH 33.9 H (27.0-32.0) pg Immature Gran # 0.16 H (0.00-0.04) 10*3/uL Eosinophils # 0.00 L (0.04-0.35) 10*3/uL Retic Count (0.10-1.80) % Sodium (137-145) mmol/L Creatinine (0.66-1.25) mg/dL Glucose (74-99) mg/dL POC Glucose (mg/dL) 314 H 243 H (70-110) mg/dL Iron (65-175) UG/DL Transferrin (204.0-354.0) mg/dL 10/18/24 10/18/24 10/18/24 Range/Units 06:48 06:48 11:53 RBC (4.40-5.60) 10*6/uL Hgb (13.0-17.0) g/dL Hct (39.6-50.0) % MCV (80.0-97.0) fL MCH (27.0-32.0) pg Immature Gran # (0.00-0.04) 10*3/uL Eosinophils # (0.04-0.35) 10*3/uL Retic Count 2.93 H (0.10-1.80) % Sodium 134 L (137-145) mmol/L Creatinine 0.41 L (0.66-1.25) mg/dL Glucose 219 H (74-99) mg/dL POC Glucose (mg/dL) 289 H (70-110) mg/dL Iron 50 L (65-175) UG/DL Transferrin 174.0 L (204.0-354.0) mg/dL 10/18/24 Range/Units 17:02 RBC (4.40-5.60) 10*6/uL Hgb (13.0-17.0) g/dL Hct (39.6-50.0) % MCV (80.0-97.0) fL MCH (27.0-32.0) pg Immature Gran # (0.00-0.04) 10*3/uL Eosinophils # (0.04-0.35) 10*3/uL Retic Count (0.10-1.80) % Sodium (137-145) mmol/L Creatinine (0.66-1.25) mg/dL Glucose (74-99) mg/dL POC Glucose (mg/dL) 265 H (70-110) mg/dL Iron (65-175) UG/DL Transferrin (204.0-354.0) mg/dL Microbiology - Last 24 Hours (Table) 10/12/24 19:25 Blood Culture - Final Blood Assessment and Plan (1) Abnormal chest x-ray Current Visit: Yes Status: Acute Code(s): R93.89 - ABNORMAL FINDINGS ON DX IMAGING OF OTH BODY STRUCTURES SNOMED Code(s): 326559172 (2) Pneumonia Current Visit: No Status: Acute Priority: High Code(s): J18.9 - PNEUMONIA, UNSPECIFIED ORGANISM SNOMED Code(s): 198559780 (3) Leukocytosis Current Visit: Yes Status: Acute Code(s): D72.829 - ELEVATED WHITE BLOOD CELL COUNT, UNSPECIFIED SNOMED Code(s): 582454083 Plan: 1patient presented to hospital with progressive weakness in this patient who did have a history of head and neck cancer has been on chemotherapy now with evidence of abnormality seen on the chest x-ray with a question of possible metastatic disease clinically not behaving as pneumonia in this patient currently with no fever elevated white count other etiologies could be PE [address] of the chest did not show any consolidation with worsening metastatic disease 3patient blood culture has been negative sputum is growing Corynebacterium stratum however the patient did have normal procalcitonin and CT did not show any consolidation, not behaving as pneumonia 4leukocytosis more likely steroid related which has normalized and will be monitored closely off antibiotic therapy Dictation was produced using [employer] dictation software. please excuse any grammatical, word or spelling errors.
--- NOTE | 2024-10-19 17:43 | P.PN ---
Subjective Progress Note Date: 10/19/24 Patient is a 74-year-old male past medical history of neck cancer status post chemotherapy who presents for generalized weakness and confusion. Confusion has worsened over the past 2 to 3 days he will stare off and needs multiple prompts to answer questions. Patient's states that he was released from [facility] about 1.5 months ago and has since become progressively weaker. During that time he had PEG tube placed. No recent falls. He is on Eliquis for history of A-fib. Absence of fever, chills, chest pain, palpitations, abdominal pain, dysuria. 10/14/2024. Patient seen and examined at bedside. He is alert and oriented x2. He continues to be on 5 L nasal cannula saturating at 93%. CTA chest without evidence of pulmonary embolism. No new complaints, consult pulmonology for c ontinued hypoxic respiratory failure, will order brain MRI for possible metastasis to brain. Today's labs WBC 9.6, hemoglobin 9.4, MCV 103, sodium 126, creatinine 0.37, ammonia is WNL. 10/15/2024 Patient's hyponatremia improved serum. Sodium is 131. Patient probably is getting excess free water through the PEG tube which will be cut down on IV normal saline will be discontinued. Patient is feeling good with better today less confused. Patient is awaiting MRI. 10/16/2024. Patient seen and examined at the bedside. Patient seems to be more confused since yesterday. Continues to be on 3 L of oxygen via nasal cannula. MRI brain is pending. Labs today show WBC 11.24, hemoglobin 8.8, sodium 133, BUN 41 creatinine 0.39, glucose 205. No new imaging. 10/17/2024 Patient seen and examined at the bedside. Patient seems to be more alert and oriented compared to yesterday. He is AAO x 3. Continues to be on 3 L oxygen via nasal cannula. MRI of the brain done yesterday shows enlarging left p arapharyngeal mass with extension through the jugular foramen to the cerebral pontine angle. There is also vasogenic edema in the adjacent cerebellum with some mild mass effect and poor vascular flow within the left jugular foramen. Oncology team has been consulted. In the meantime patient continues to be on dexamethasone 4 mg p.o. every 6 hour. Lab work today shows WBC 8.06, hemoglobin 8.0, sodium 136, potassium 4.4, BUN 20, creatinine 0.4, calcium 8.4, magnesium 2.0. Patient is getting enteral feeds through PEG tube with Jevity with a rate of 60 cc/h. 10/18/2024 Patient seen and examined at the bedside. Patient seems to be more alert and oriented compared to yesterday. He is AAO x 3. Continues to be on 2 L oxygen via nasal cannula. MRI of the brain done yesterday shows enlarging left parapharyngeal mass with extension through the jugular foramen to the cerebral pontine angle. There is also vasogenic edema in the adjacent cerebellum with some mild mass effect and poor vascular flow within the left jugular foramen. Radiation oncology team has been consulted. In the meantime patient continues to be on dexamethasone 4 mg p.o. every 6 hour. Lab work today shows WBC 7.44, h emoglobin 8.2, sodium 134, BUN 20, creatinine 0.41, calcium 8.4, iron 50, TIBC 244, percent saturation 20.49, transferrin 134, ferritin 144, vitamin B12 851 and folate 7.90. Patient is getting enteral feeds through PEG tube with Jevity with a rate of 60 cc/h. 10/19/2024 Patient is seen and examined at the bedside. Patient is a lot more comfortable today compared to yesterday. He is AAO x 3. Patient is not on any supplemental oxygen and is currently saturating in mid 90s on room air. Patient continues to be followed by radiation oncology team. Plan is for chemotherapy and radiation. REVIEW OF SYSTEMS: Pertinent positives and negatives noted in HPI. PHYSICAL EXAMINATION: Vitals reviewed GENERAL: Resting comfortably in bed. EYES: PERRL, no scleral injection or icterus. No vision loss HENT: Normocephalic, atraumatic, hearing grossly intact, moist mucous membranes NECK: No tracheal deviation, full range of motion. CARDIOVASCULAR: S1 and S2 present. Irregular rhythm. PULMONARY: Chest is clear to auscultation, no wheezing, rhonchi, or crackles. ABDOMEN: Soft, nontender, nondistended. No palpable organomegaly. PEG tube. MUSCULOSKELETAL: No apparent joint swelling and deformities. EXTREMITIES: No apparent cyanosis, clubbing. No pedal edema. NEUROLOGICAL: Alert and oriented x2. Right hand nutrition coordinator weakness. SKIN: No apparent rashes. Assessment and Plan: #Acute encephalopathy, likely secondary to enlarging left pharyngeal mass with extension into the cerebellum, resolved #Acute hypoxic respiratory failure,, resolved #Generalized weakness #Eosinophila #Otomastoiditis #Leukocytosis likely reactive to steroid, resolved #Anemia of chronic disease Afebrile, WBC is WNL, Procalcitonin negative. MRI brain with and without contrast with findings discussed above D-dimer 2.7, CTA chest without evidence of pulmonary embolism Sputum culture is positive for Corynebacterium stratum Blood culture report shows no bacterial growth Continue with dexamethasone 4 mg p.o. every 6 hour PT OT consulted Pulmonology consulted, note reviewed ID consulted, note reviewed Neurology consulted, note reviewed Continue to monitor CBC and BMP #History of head and neck cancer Radiation oncology has been consulted Plan is for radiation and chemotherapy #Oral thrush Continue with oral nystatin # A-fib with RVR Continue Eliquis Cardiology consulted, note reviewed, Lopressor to be continued at 75 mg twice daily Cardiology signed off #Hypovolemic hyponatremia #CHF with systolic dysfunction EF 45 to 50% Hold Lasix Continue IV NS and water flushes through PEG tube Nephrology consulted, note reviewed Chronic Medical Conditions History of neck cancers/p chemotherapy PEG tube in place, dietitian consulted CAD Resume home medications DVT ppx: Lovenox [address] Bob seen patient with resident, present during exam, and agreed with findings. Objective - Vital Signs Vital signs: Vital Signs Temp 98.3 F 10/19/24 15:36 Pulse 100 10/19/24 16:40 Resp 17 10/19/24 15:36 BP 122/75 10/19/24 15:36 Pulse Ox 99 10/19/24 15:36 FiO2 Intake & Output 10/18/24 10/19/24 10/19/24 18:59 06:59 18:59 Intake Total 1460 20 20 Output Total 680 Balance 1460 -660 20 Weight 80 kg 81.1 kg Intake: IV 20 20 20 Invasive Line 3 20 20 20 Tube Feeding 1440 Output: Urine 680 Other: Voiding Method Toilet Toilet Toilet Urinal Urinal Urinal - Labs CBC & Chem 7: 10/19/24 08:14 10/19/24 08:14 Labs: Abnormal Lab Results - Last 24 Hours (Table) 10/18/24 10/19/24 10/19/24 Range/Units 06:48 00:06 05:58 RBC (4.40-5.60) 10*6/uL Hgb (13.0-17.0) g/dL Hct (39.6-50.0) % MCV (80.0-97.0) fL MCH (27.0-32.0) pg Immature Gran # (0.00-0.04) 10*3/uL Eosinophils # (0.04-0.35) 10*3/uL Sodium (137-145) mmol/L BUN (9-20) mg/dL Creatinine (0.66-1.25) mg/dL Glucose (74-99) mg/dL POC Glucose (mg/dL) 319 H 248 H (70-110) mg/dL RBC Folate 1,092 H (280 - 791) ng/mL 10/19/24 10/19/24 10/19/24 Range/Units 08:14 08:14 12:08 RBC 2.56 L (4.40-5.60) 10*6/uL Hgb 9.0 L (13.0-17.0) g/dL Hct 26.7 L (39.6-50.0) % MCV 104.3 H (80.0-97.0) fL MCH 35.2 H (27.0-32.0) pg Immature Gran # 0.14 H (0.00-0.04) 10*3/uL Eosinophils # 0.00 L (0.04-0.35) 10*3/uL Sodium 135 L (137-145) mmol/L BUN 23 H (9-20) mg/dL Creatinine 0.39 L (0.66-1.25) mg/dL Glucose 223 H (74-99) mg/dL POC Glucose (mg/dL) 259 H (70-110) mg/dL RBC Folate (280 - 791) ng/mL
[2024-10-19 18:23] LABS: Glucose,Whole Blood 331 mg/dL (70-110)
[2024-10-19 20:55] VITALS: RESP 16
[2024-10-20 00:55] LABS: Glucose,Whole Blood 260 mg/dL (70-110)
[2024-10-20 04:28] LABS: Methylmalonic Acid 0.43 umol/L (<0.40)
[2024-10-20 06:11] LABS: Glucose,Whole Blood 252 mg/dL (70-110)
[2024-10-20 07:49] LABS: HCT 26.5 % (39.6-50.0); HGB 8.8 g/dL (13.0-17.0); Lymphocytes # (A) 0.75 10*3/uL (0.90-5.00); Lymphocytes % (A) 12.7 %; MCH 35.2 pg (27.0-32.0); MCHC 33.2 g/dL (32.0-37.0); Mean Platelet Volume 9.4 fL (9.5-12.2); Monocytes % (A) 5.1 %; Neutrophils # (A) 4.62 10*3/uL (1.80-7.70); Neutrophils % (A) 78.5 %; Platelet Count 267 10*3/uL (140-440); RDW 15.6 % (11.5-14.5); WBC 5.89 10*3/uL (4.50-10.00)
[2024-10-20 08:01] LABS: African American GFR (CKD) >90 (>60 ml/min/1.73 sqM); Anion Gap 3 mmol/L; Blood Urea Nitrogen 27 mg/dL (9-20); Calcium 8.3 mg/dL (8.4-10.2); Carbon Dioxide 30 mmol/L (22-30); Chloride 102 mmol/L (98-107); Glucose 213 mg/dL (74-99); Non-African American GFR(CKD) >90 (>60 ml/min/1.73 sqM); Potassium 4.5 mmol/L (3.5-5.1); Sodium 135 mmol/L (137-145)
[2024-10-20 08:50] LABS: Anisocytosis (M) Present; RBC Fragments Present
--- NOTE | 2024-10-20 10:12 | P.PN ---
Subjective Patient is seen in follow-up for hyponatremia. Sodium level stable at 135 today. Receiving tube feeds. Vital signs are stable. General: No acute distress. HEENT: Head exam is unremarkable. LUNGS: No audible rhonchi or wheezes. HEART: Rate and Rhythm are regular. ABDOMEN: Nontender. EXTREMITITES: No edema. Objective - Vital Signs Vital signs: Vital Signs Temp 97.9 F 10/20/24 03:33 Pulse 96 10/20/24 08:56 Resp 16 10/20/24 03:33 BP 128/73 10/20/24 03:33 Pulse Ox 99 10/20/24 03:33 FiO2 Intake & Output 10/19/24 10/20/24 10/20/24 18:59 06:59 18:59 Intake Total 20 30 Balance 20 30 Weight 73.618 kg Intake: IV 20 30 Invasive Line 3 20 30 Other: Voiding Method Toilet Toilet Urinal Urinal - Labs CBC & Chem 7: 10/20/24 07:40 10/20/24 07:40 Labs: Abnormal Lab Results - Last 24 Hours (Table) 10/18/24 10/19/24 10/19/24 Range/Units 06:48 12:08 18:21 RBC (4.40-5.60) 10*6/uL Hgb (13.0-17.0) g/dL Hct (39.6-50.0) % MCV (80.0-97.0) fL MCH (27.0-32.0) pg MPV (9.5-12.2) fL Immature Gran # (0.00-0.04) 10*3/uL Lymphocytes # (0.90-5.00) 10*3/uL Eosinophils # (0.04-0.35) 10*3/uL Sodium (137-145) mmol/L BUN (9-20) mg/dL Creatinine (0.66-1.25) mg/dL Glucose (74-99) mg/dL POC Glucose (mg/dL) 259 H 331 H (70-110) mg/dL Calcium (8.4-10.2) mg/dL Methylmalonic Acid 0.43 H (<0.40) umol/L RBC Folate 1,092 H (280 - 791) ng/mL 10/20/24 10/20/2425 Range/Units 00:53 06:08 07:40 RBC 2.50 L (4.40-5.60) 10*6/uL Hgb 8.8 L (13.0-17.0) g/dL Hct 26.5 L (39.6-50.0) % MCV 106.0 H (80.0-97.0) fL MCH 35.2 H (27.0-32.0) pg MPV 9.4 L (9.5-12.2) fL Immature Gran # 0.22 H (0.00-0.04) 10*3/uL Lymphocytes # 0.75 L (0.90-5.00) 10*3/uL Eosinophils # 0.00 L (0.04-0.35) 10*3/uL Sodium (137-145) mmol/L BUN (9-20) mg/dL Creatinine (0.66-1.25) mg/dL Glucose (74-99) mg/dL POC Glucose (mg/dL) 260 H 252 H (70-110) mg/dL Calcium (8.4-10.2) mg/dL Methylmalonic Acid (<0.40) umol/L RBC Folate (280 - 791) ng/mL 10/20/24 Range/Units 07:40 RBC (4.40-5.60) 10*6/uL Hgb (13.0-17.0) g/dL Hct (39.6-50.0) % MCV (80.0-97.0) fL MCH (27.0-32.0) pg MPV (9.5-12.2) fL Immature Gran # (0.00-0.04) 10*3/uL Lymphocytes # (0.90-5.00) 10*3/uL Eosinophils # (0.04-0.35) 10*3/uL Sodium 135 L (137-145) mmol/L BUN 27 H (9-20) mg/dL Creatinine 0.42 L (0.66-1.25) mg/dL Glucose 213 H (74-99) mg/dL POC Glucose (mg/dL) (70-110) mg/dL Calcium 8.3 L (8.4-10.2) mg/dL Methylmalonic Acid (<0.40) umol/L RBC Folate (280 - 791) ng/mL Assessment and Plan Plan: Assessment: 1. Hypovolemic hyponatremia improving with IV fluids. Sodium level 135 today. 2. History of head and neck cancer status postchemotherapy. 3. Dysphagia, receiving PEG tube feeds. 4. Coronary artery disease. 5. A-fib. Plan: Maintain tube feeds with minimal water flushes.
[2024-10-20 10:35] VITALS: BP 138/83; TEMP 97.4
[2024-10-20 11:49] LABS: Glucose,Whole Blood 244 mg/dL (70-110)
--- NOTE | 2024-10-20 12:16 | P.PN ---
Subjective Progress Note Date: 10/20/24 Principal diagnosis: Pneumonia. 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 He had been treated with Taxol carboplatin and subsequently on Keytruda. He was admitted here back in July 2024 with neutropenic fever and sepsis with acute toxic metabolic encephalopathy. He was discharged to home August 23, 2024. In the interim he had been at [facility] approximately 1-1/2 months ago. He did have a PEG tube placed. No other details available at this time. He was brought into the emergency room yesterday with progressive weakness and altered mental status. His states he has been getting weaker and weaker and confused and just staring off into space. CT scan of the brain revealed interval decreased attenuation within the left cerebral hemisphere. This could reflect ischemic insult versus underlying lesion. Left-sided mastoiditis. Chest x-ray shows nodular infiltrate in the left suprahilar region and right infrahilar region. CT angiogram revealed no evidence of pulmonary embolism. There is progression of metastatic disease compared to June 2024. Increasing number of pulmonary nodules. Mediastinum demonstrates multiple lymph nodes which are slightly more prominent and increased compared to June 2024. Mild pulmonary vascular congestion. White count 9.6. Hemoglobin 9.4. Platelets 265. Sodium 126. Potassium 4.8. Bicarb 29. BUN 13. Creatinine 0.37. Glucose 133. He is seen today in consultation on the selective care unit. He is currently awake. He is alert but confused to time and place. Very poor historian. Unable to obtain any significant information. Maintaining good O2 saturations in the 90s on 5 L/min per nasal cannula. He is been afebrile. Slightly tachycardic. No tachypnea. The patient is seen today October 15, 2024 in follow-up on the regular medical floor. He is currently resting in bed. A bit more awake and alert today compared to yesterday. His is at the bedside. He is maintaining O2 saturations in the mid 90s on 5 L/min per nasal cannula. He was afebrile. Hemodynamically stable. Blood culture pending. Sputum culture pending. White count 6.6. Hemoglobin 8.6. Platelets 219. Sodium 131. Potassium 4.2. Bicarb 25. BUN 11. Creatinine 0.34. Glucose 205. He remains on Decadron. Anticoagulated with Eliquis. Progress note dated October 16, 2024. 74-year-old male seen today in room 382. The patient is currently on 3 L of oxygen. He is getting saline at 50 cc an hour, and Jevity at 60 cc an hour. He is currently resting in bed. No acute distress. No respiratory distress. No family members in the room today. Current laboratory data includes a white count 11.2, hemoglobin 8.8, hematocrit 25.9, and a platelet count of 271,000. Sodium 133, potassium 4.3, chlorides 97, CO2 25, BUN 15, creatinine 0.39. Glucose is 167. Calcium 8.8. Magnesium 1.9. Progress note dated October 17, 2024. 74-year-old male seen today in room 382. Currently, the patient is resting comfortably in bed. He is on 3 L of oxygen. He is getting saline at 50 cc an hour. He is also getting Jevity at 60 cc an hour. According to the nurses, the patient had an uneventful night. Current laboratory data includes a white count of 8.1, hemoglobin 8, hematocrit 24.3, and a platelet count of 224,000. Sodium 136, potassium 4.4, chlorides 102, CO2 29, BUN 20, creatinine 0.40. Glucose is 213. Calcium 8.4, magnesium 2.0. Brain CT showed a left parapharyngeal mass, with some extension into the jugular foramen to the cerebellar pontine angle. There is vasogenic edema, in the adjacent cerebellum, with mild mass effect. Poor vascular flow within the left jugular foramen. There is evidence of both pansinusitis, and left mastoiditis. Progress note dated October 18, 2024. 74-year-old male seen again in room 382. The patient is currently on 2 L of oxygen. He is getting Jevity at 60 cc an hour. No additional IV fluids. He is resting comfortably in bed. No acute distress. Laboratory data includes a white count 7.4, hemoglobin 8.2, hematocrit 25.1. Platelet count is 277,000. Sodium 134, potassium 4.3, chlorides 100, CO2 28, BUN 20, creatinine 0.41. Glucose is 289. Calcium is 8.4. No chest x-ray today. Progress note dated October 19, 2024. 74-year-old male seen again in room 382. He continues on oxygen at 2 L. He is not receiving any IV fluids. He is getting Jevity at 60 cc an hour. He is doing about the same, with no specific complaints. He is resting comfortably in bed. Current laboratory data includes a white count of 7.6, hemoglobin 9, hematocrit 26.7, and a platelet count of 328,000. Sodium 135, potassium 4.4, chlorides 101, CO2 26, BUN 23, and creatinine 0.39. Glucose is 259. Calcium 8.6. Magnesium 2.0. Progress note dated October 20, 2024. 74-year-old male seen again in room 382. He is on room air. He is getting saline at 50 cc an hour, and Jevity 1.5, at 60 cc an hour. He is awake and alert. The hope is that he might be discharged later today. Current labs include a white count of 5.9, hemoglobin 8.8, hematocrit 27, platelet count 267,000. Sodium 135, potassium 4.5, chlorides 102, CO2 30, BUN 27, and creatinine 0.42. Glucose is 244. Calcium is 8.3. Objective - Vital Signs Vital signs: Vital Signs Temp 97.4 F L 10/20/24 08:00 Pulse 96 10/20/24 11:59 Resp 16 10/20/24 08:00 BP 138/83 10/20/24 08:00 Pulse Ox 96 10/20/24 08:00 FiO2 Intake & Output 10/19/24 10/20/24 10/20/24 18:59 06:59 18:59 Intake Total 20 30 Balance 20 30 Weight 73.618 kg Intake: IV 20 30 Invasive Line 3 20 30 Other: Voiding Method Toilet Toilet Toilet Urinal Urinal Urinal - Exam No acute distress, oriented 3. Currently on room air. HEENT examination is grossly unremarkable. Mucous membranes are moist. No oral lesions. Neck supple. Full range of motion. No adenopathy thyromegaly or neck vein distention. Cardiovascular examination reveals regular rhythm rate. S1-S2 normal. No S3 or S4. No discernible murmur noted. Lungs reveal bilateral scattered rhonchi. No wheezes or crackles. Breath sounds equal. Abdomen soft bowel sounds are heard. No masses or tenderness. Extremities are intact. No cyanosis clubbing or edema. Skin is without rash or lesion. Neurologic examination is brief but nonfocal. - Labs CBC & Chem 7: 10/20/24 07:40 10/20/24 07:40 Labs: Abnormal Lab Results - Last 24 Hours (Table) 10/18/24 10/19/24 10/20/24 Range/Units 06:48 18:21 00:53 RBC (4.40-5.60) 10*6/uL Hgb (13.0-17.0) g/dL Hct (39.6-50.0) % MCV (80.0-97.0) fL MCH (27.0-32.0) pg MPV (9.5-12.2) fL Immature Gran # (0.00-0.04) 10*3/uL Lymphocytes # (0.90-5.00) 10*3/uL Eosinophils # (0.04-0.35) 10*3/uL Sodium (137-145) mmol/L BUN (9-20) mg/dL Creatinine (0.66-1.25) mg/dL Glucose (74-99) mg/dL POC Glucose (mg/dL) 331 H 260 H (70-110) mg/dL Calcium (8.4-10.2) mg/dL Methylmalonic Acid 0.43 H (<0.40) umol/L 10/20/24 10/20/24 10/20/24 Range/Units 06:08 07:40 07:40 RBC 2.50 L (4.40-5.60) 10*6/uL Hgb 8.8 L (13.0-17.0) g/dL Hct 26.5 L (39.6-50.0) % MCV 106.0 H (80.0-97.0) fL MCH 35.2 H (27.0-32.0) pg MPV 9.4 L (9.5-12.2) fL Immature Gran # 0.22 H (0.00-0.04) 10*3/uL Lymphocytes # 0.75 L (0.90-5.00) 10*3/uL Eosinophils # 0.00 L (0.04-0.35) 10*3/uL Sodium 135 L (137-145) mmol/L BUN 27 H (9-20) mg/dL Creatinine 0.42 L (0.66-1.25) mg/dL Glucose 213 H (74-99) mg/dL POC Glucose (mg/dL) 252 H (70-110) mg/dL Calcium 8.3 L (8.4-10.2) mg/dL Methylmalonic Acid (<0.40) umol/L 10/20/24 Range/Units 11:47 RBC (4.40-5.60) 10*6/uL Hgb (13.0-17.0) g/dL Hct (39.6-50.0) % MCV (80.0-97.0) fL MCH (27.0-32.0) pg MPV (9.5-12.2) fL Immature Gran # (0.00-0.04) 10*3/uL Lymphocytes # (0.90-5.00) 10*3/uL Eosinophils # (0.04-0.35) 10*3/uL Sodium (137-145) mmol/L BUN (9-20) mg/dL Creatinine (0.66-1.25) mg/dL Glucose (74-99) mg/dL POC Glucose (mg/dL) 244 H (70-110) mg/dL Calcium (8.4-10.2) mg/dL Methylmalonic Acid (<0.40) umol/L Assessment and Plan Assessment: Acute hypoxic respiratory failure secondary to progression of metastatic head and neck cancer. Chest x-ray shows nodular infiltrate in the left suprahilar region and right infrahilar region. CT angiogram revealed no evidence of pulmonary embolism. There is progression of metastatic disease compared to June 2024. Increasing number of pulmonary nodules. Mediastinum demonstrates multiple lymph nodes which are slightly more prominent and increased compared to June 2024. Altered mental status secondary to above. CT scan of the brain revealed interval decreased attenuation within the left cerebral hemisphere. This could reflect ischemic insult versus underlying lesion. Left-sided mastoiditis. History of metastatic head and neck cancer diagnosed back in April 2024. Progressive weakness and debility. Prolonged hospitalization at [facility] due to sepsis and pneumonia in August/September 2024. History of neutropenic fever with severe sepsis, July 2024. History of dysphagia secondary to above, PEG tube placed. History of diabetes mellitus, type II. History of chronic atrial fibrillation. Hyperlipidemia. Non smoker. Poor overall functional performance. Plan: Plan dated October 16, 2024. The patient is seen today in room 382. The patient continues on nasal O2 at 3 L. He is getting saline at 50 cc an hour, and Jevity, tube feeds, at 60 cc an hour. He is a bit more awake and alert. Labs, x-rays, medications are reviewed. We will continue to follow make recommendations along the way. The patient has multiple pulmonary nodules, seen on CT scan. Pneumonia is much less likely as procalcitonin level is negative. We will continue to follow. Prognosis is poor. Dictation was produced using [email or web address] software. Please excuse any grammatical, word or spelling errors. Plan dated October 17, 2024. The patient is seen today in room 282. He remains about the same as he did yesterday. He continues on nasal O2 3 L. He is getting saline at 50 cc an hour. He is also receiving Jevity 60 cc an hour. Labs, x-rays, and medications are reviewed. The patient's overall prognosis remains poor. CODE STATUS should be addressed by the primary service. No additional recommendations are made. Dictation was produced using [email or web address] software. Please excuse any grammatical, word or spelling errors. Plan dated October 18, 2024. The patient remains relatively stable. Labs, x-rays, medications are reviewed. The patient is currently on 2 L. He is getting Jevity at 60 cc an hour. Patient is not receiving any additional IV fluids. We will continue to follow make recommendations along the way. Prognosis is guarded. CODE STATUS should be addressed by the primary service. Dictation was produced using [employer] software. Please excuse any grammatical, word or spelling errors. Plan dated October 19, 2024. The patient was seen by radiation oncology. The plans are for palliative radiotherapy, for this patient. Labs, x-rays, medications are reviewed. The patient currently is on 2 L. No respiratory difficulty. He is not receiving any IV fluids. He does have a PEG tube in place. He is receiving Jevity at 60 cc an hour. Labs, x-rays, and medications are reviewed. We will continue to follow the patient, make recommendations. Prognosis is poor. He remains a full code. CODE STATUS should be addressed, by the primary service. Plan dated October 20, 2024. The patient is seen today in room 382. The patient is currently on room air. The patient is getting saline at 50 cc an hour, Jevity 1.5 at 60 cc an hour. According to the nurse, the patient might be discharged later today. He did have evaluation by radiation oncology yesterday. Labs, x-rays, and all medications were reviewed. We will continue to follow the patient, and make recommendations where appropriate. Currently he is stable from the pulmonary standpoint, and is currently on room air. He denies any shortness of breath, cough, wheezing, chest tightness, or phlegm production. Dictation was produced using [employer] dictation software. Please excuse any grammatical, word or spelling errors. Time with Patient: Less than 30
[2024-10-20 14:47] VITALS: BMI 22.0
[2024-10-20 16:15] VITALS: PULSE 67
--- NOTE | 2024-10-20 16:35 | P.DS ---
Providers Date of admission: 10/12/24 22:37 Attending physician: Nasra Youngblood Consults: 10/12/24 22:34 Consult Physician Routine Consulting Provider: Heather Meehan Consult Reason/Comments: Hyponatremia Do you want consulting provider notified?: Yes, Notify in am 10/12/24 22:35 Consult Physician Routine Consulting Provider: Medina Daniel Consult Reason/Comments: Pneumonia Do you want consulting provider notified?: Yes, Notify in am 10/13/24 11:24 Consult Physician Routine Consulting Provider: Mj Blackman Consult Reason/Comments: afib Do you want consulting provider notified?: Yes 10/13/24 12:59 Consult Physician Routine Consulting Provider: Partha Lozada Consult Reason/Comments: CT brain findings, possible CVA Do you want consulting provider notified?: Yes 10/14/24 12:29 Consult Physician Routine Consulting Provider: Alexander Rico Consult Reason/Comments: lung nodules, hypoxic resp failure Do you want consulting provider notified?: Yes 10/16/24 17:14 Consult Physician Routine Consulting Provider: Laxmi Carl Consult Reason/Comments: metastatic head and neck cancer Do you want consulting provider notified?: Yes 10/17/24 14:22 Consult Physician Routine Consulting Provider: Bandar Edwards Consult Reason/Comments: symptomatic tumor compression on jugular, edema Do you want consulting provider notified?: Already Contacted [facility] Course: Discharge Diagnosis: #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 He was recently in [facility] about 1.5 months ago and has since become progressively weaker. During that time he had PEG tube placed. Labs significant for WBC 9.4, hemoglobin 10.7, MCV 99, platelets 271, VBG 7.4, pCO2 48, sodium 126 => 128, potassium 5.2 => 4.2, creatinine 0.53, alkaline phosphatase 129 => 117, troponin<0.012 => 0.015, CRP 7.5, proBNP 1860, TSH 5.27, free T4 1.31 by respiratory panel negative, UA significant for urine osmolality 532, urine sodium 25. EKG independently interpreted showed A-fib with RVR heart rate of 120, QTc 393, no ST segment elevation or depression seen, no T-wave inversions seen. Chest x-ray done interpreted showed nodular infiltrate left suprahilar region and right infrahilar region. CT head independently interpreted showed interval decreased attenuation within the left cerebral hemisphere, could reflect ischemic insult versus underlying lesion. Left-sided otomastoiditis. CT of the chest was performed to rule out PE. No evidence of pulmonary embolism. However there is progression of metastatic lung disease compared to 07/13/2024. Increasing size and number of pulmonary nodules. The largest nodule in the left upper lung measuring up to 21 mm additionally the mediastinum demonstrate multiple lymph nodes which are slightly more prominent and increased compared to previously. Brain MRI was performed which showed left parapharyngeal mass appearing larger than PET/CT in October has some extension in through the jugular foramen to the cerebral pontine angle. Vasogenic edema appears to be near to send cerebellum with some mild mass effect. Poor vascular flow within the left jugular foramen. Pulmonology and nephrology was consulted. Both radiation oncology and medical oncology were also consulted. Patient to undergo radiation and chemotherapy as an outpatient within 1 to 2 weeks. Otherwise, patient appears to improving his symptoms, seems to be more alert and oriented and is. Much back to his baseline mentation. He no longer needs supplemental oxygen and saturating well on room air. Patient was cleared for discharge by pulmonology, nephrology and oncology. Subsequent lab work appears to be back to baseline. Patient to follow-up with PCP and oncologist postdischarge. Patient to continue dexamethasone 4 mg p.o. every 6 hours for 7 days with further management by oncologist, continue with oral nystatin for additional 4 days, Lantus 10 units subcu in the morning and evening with sliding scale insulin. Discharge disposition: Home with home health services Vital signs reviewed. PHYSICAL EXAMINATION: Vitals reviewed GENERAL: Resting comfortably in bed. EYES: PERRL, no scleral injection or icterus. No vision loss HENT: Normocephalic, atraumatic, hearing grossly intact, moist mucous membranes NECK: No tracheal deviation, full range of motion. CARDIOVASCULAR: S1 and S2 present. Irregular rhythm. PULMONARY: Chest is clear to auscultation, no wheezing, rhonchi, or crackles. ABDOMEN: Soft, nontender, nondistended. No palpable organomegaly. PEG tube. MUSCULOSKELETAL: No apparent joint swelling and deformities. EXTREMITIES: No apparent cyanosis, clubbing. No pedal edema. NEUROLOGICAL: Alert and oriented x2. 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 SKIN: No apparent rashes. Dictation was produced using [employer] dictation software. Please excuse any grammatical, word or spelling errors. Patient Condition at Discharge: Stable Plan - Discharge Summary Discharge Rx Participant: Yes New Discharge Prescriptions: New dexAMETHasone ORAL [Hexadrol] 4 mg PO Q6H 14 Days #56 tab Nystatin 100,000 Unit/ml Susp [Mycostatin Oral Susp] 500,000 unit PO QID 4 Days #20 ml Insulin Lispro [humaLOG Kwikpen] 2 - 12 units SQ ACHS #1 each Insulin Glargine,Hum.rec.anlog [Lantus Solostar Pen] 10 units SQ BID #1 each Continue HYDROcodone/APAP 10-325MG [Blaine 10-325] 1 tab PEG/G-TUBE QID PRN PRN Reason: Pain Potassium Chloride Oral Liquid 40 meq PEG/G-TUBE DAILY Esomeprazole Magnesium [NexIUM] 20 mg PEG/G-TUBE BID PRN PRN Reason: Gi Upset Furosemide [Lasix] 40 mg PEG/G-TUBE DAILY PRN PRN Reason: Edema Apixaban [Eliquis] 5 mg PEG/G-TUBE BID #28 tab Metoprolol Tartrate [Lopressor] 12.5 mg PEG/G-TUBE BID #28 tab Atorvastatin [Lipitor] 20 mg PEG/G-TUBE HS Ondansetron Odt [Zofran ODT] 8 mg PEG/G-TUBE Q8H PRN PRN Reason: Nausea And Vomiting Discharge Medication List Atorvastatin [Lipitor] 20 mg PEG/G-TUBE HS 07/21/24 [History] HYDROcodone/APAP 10-325MG [Blaine 10-325] 1 tab PEG/G-TUBE QID PRN 07/21/24 [History] Esomeprazole Magnesium [NexIUM] 20 mg PEG/G-TUBE BID PRN 10/12/24 [History] Furosemide [Lasix] 40 mg PEG/G-TUBE DAILY PRN 10/12/24 [History] Ondansetron Odt [Zofran ODT] 8 mg PEG/G-TUBE Q8H PRN 10/12/24 [History] Potassium Chloride Oral Liquid 40 meq PEG/G-TUBE DAILY 10/12/24 [History] Apixaban [Eliquis] 5 mg PEG/G-TUBE BID #28 tab 10/20/24 [Rx] Insulin Glargine,Hum.rec.anlog [Lantus Solostar Pen] 10 units SQ BID #1 each 10/20/24 [Rx] Insulin Lispro [humaLOG Kwikpen] 2 - 12 units SQ ACHS #1 each 10/20/24 [Rx] Metoprolol Tartrate [Lopressor] 12.5 mg PEG/G-TUBE BID #28 tab 10/20/24 [Rx] Nystatin 100,000 Unit/ml Susp [Mycostatin Oral Susp] 500,000 unit PO QID 4 Days #20 ml 10/20/24 [Rx] dexAMETHasone ORAL [Hexadrol] 4 mg PO Q6H 14 Days #56 tab 10/20/24 [Rx] Follow up Appointment(s)/Referral(s): Home[facility] [NON-STAFF] - Boris Mcclendon DO [Primary Care Provider] - 1-2 days [facility] [REFERRING] - Connie De Jesus MD [STAFF PHYSICIAN] - 11/14/24 3:30 pm Patient Instructions/Handouts: Pneumonia (DC) Activity/Diet/Wound Care/Special Instructions: Please follow up with your PCP within 1 week and follow up with medical oncologist at [facility]. Please continue with dexamethasone 4mg 1 tablet 4 times a day until you see oncologist. Discharge/Stand Alone Forms: Who Do I Call? Discharge Disposition: HOME WITH HOME HEALTH SERVICES
--- NOTE | 2024-10-20 18:30 | P.PN ---
Subjective Progress Note Date: 10/20/24 Pt reporting significant improvement since admit. Continues on dex. Plan for discharge today and will begin RT next week Objective - Vital Signs Vital signs: Vital Signs Temp 97.4 F L 10/20/24 08:00 Pulse 67 10/20/24 14:00 Resp 16 10/20/24 14:00 BP 138/83 10/20/24 08:00 Pulse Ox 96 10/20/24 08:00 FiO2 Intake & Output 10/19/24 10/20/24 10/20/24 18:59 06:59 18:59 Intake Total 20 30 Balance 20 30 Weight 73.618 kg 73.618 kg Intake: IV 20 30 Invasive Line 3 20 30 Other: Voiding Method Toilet Toilet Toilet Urinal Urinal Urinal - Constitutional General appearance: Present: no acute distress - EENT ENT: Present: hearing grossly normal - Respiratory Details: breathing is even and unlabored - Cardiovascular Details: skin warm and dry - Integumentary Integumentary: Absent: cyanotic, jaundiced - Psychiatric Psychiatric: Present: A&O x's 3 - Labs CBC & Chem 7: 10/20/24 07:40 10/20/24 07:40 Labs: Abnormal Lab Results - Last 24 Hours (Table) 10/18/24 10/20/24 10/20/24 Range/Units 06:48 00:53 06:08 RBC (4.40-5.60) 10*6/uL Hgb (13.0-17.0) g/dL Hct (39.6-50.0) % MCV (80.0-97.0) fL MCH (27.0-32.0) pg MPV (9.5-12.2) fL Immature Gran # (0.00-0.04) 10*3/uL Lymphocytes # (0.90-5.00) 10*3/uL Eosinophils # (0.04-0.35) 10*3/uL Sodium (137-145) mmol/L BUN (9-20) mg/dL Creatinine (0.66-1.25) mg/dL Glucose (74-99) mg/dL POC Glucose (mg/dL) 260 H 252 H (70-110) mg/dL Calcium (8.4-10.2) mg/dL Methylmalonic Acid 0.43 H (<0.40) umol/L 10/20/24 10/20/24 10/20/24 Range/Units 07:40 07:40 11:47 RBC 2.50 L (4.40-5.60) 10*6/uL Hgb 8.8 L (13.0-17.0) g/dL Hct 26.5 L (39.6-50.0) % MCV 106.0 H (80.0-97.0) fL MCH 35.2 H (27.0-32.0) pg MPV 9.4 L (9.5-12.2) fL Immature Gran # 0.22 H (0.00-0.04) 10*3/uL Lymphocytes # 0.75 L (0.90-5.00) 10*3/uL Eosinophils # 0.00 L (0.04-0.35) 10*3/uL Sodium 135 L (137-145) mmol/L BUN 27 H (9-20) mg/dL Creatinine 0.42 L (0.66-1.25) mg/dL Glucose 213 H (74-99) mg/dL POC Glucose (mg/dL) 244 H (70-110) mg/dL Calcium 8.3 L (8.4-10.2) mg/dL Methylmalonic Acid (<0.40) umol/L Assessment and Plan (1) Head and neck cancer Status: Acute Priority: High Code(s): C76.0 - MALIGNANT NEOPLASM OF HEAD, FACE AND NECK SNOMED Code(s): 663142861 Plan: - Weakness - Likely multifactorial including multiple hospitalizations in the last 3 months for infections and findings on the CT scan brain. -Pt feeling better being in steroids -Plans to participate with PT/OT outpt Malignant neoplasm of the oral cavity - Diagnosis and treatment as documented in consult - Brain MRI reports left parapharyngeal mass, appears larger than on the PET scan in June, may have some extension into through the jugular foramen to the cerebellar pontine angle. Vasogenic edema appears to be in the adjacent cerebellum with some mild mass effect. Poor vascular flow within the left jugular foramen. Unfortunately, imaging is showing disease progression. Steroids have been initiated with some improvement in symptoms -Radiation Oncology has seen pt, plans for palliative radiation. Spoke with rad onc today, will move up RT to next week. Continue decadron - Patient's performance status overall is fair other than the weakness. Medical Oncologist recommending chemo after radiation complete. Reviewed drugs, frequency of treatment and follow up. Pt and are agreeable to start treatment outpt once he has completed radiation. Macrocytic anemia -macrocytic anemia work up ordered-no significant deficiencies noted -transfuse for a Hgb <7 or if pt is symptomatic. -Hgb stable at 8.8 today Doctor attests: I performed a history and physical examination of this patient, developed impression and plan of care. Discussed with dictator. I agree with dictators note, documented as a scribe.
--- NOTE | 2024-10-20 21:24 | P.PN ---
Subjective Progress Note Date: 10/19/24 Principal diagnosis: Reason for follow-up is abnormal x-ray and question of pneumonia Patient is a 74-year-old male with a past medical history significant for diabetes mellitus atrial fibrillation hyperlipidemia RI, neck cancer status post chemotherapy, presenting to the hospital for evaluation of generalized weakness and confusion, patient did have a chest x-ray concerning for possible left suprahilar and right infrahilar infiltrate concerning for pneumonia however subsequent repeated have CT angiogram of the chest that was negative for PE and did shows progressive metastatic disease without any consolidation. On today's evaluation that is 10/19/2024, Patient is afebrile patient is currently on room air and denies having any shortness of breath, the patient denies any chest pain or worsening cough, the patient denies any nausea vomiting did not have any abdominal pain and no diarrhea. Patient white count 7.56, creatinine 0.39 Objective - Vital Signs Vital signs: Vital Signs Temp 97.7 F 10/19/24 08:30 Pulse 85 10/19/24 12:59 Resp 16 10/19/24 08:30 BP 145/80 10/19/24 08:30 Pulse Ox 96 10/19/24 09:20 FiO2 Intake & Output 10/18/24 10/19/24 10/19/24 18:59 06:59 18:59 Intake Total 1460 20 10 Output Total 680 Balance 1460 -660 10 Weight 80 kg 81.1 kg Intake: IV 20 20 10 Invasive Line 3 20 20 10 Tube Feeding 1440 Output: Urine 680 Other: Voiding Method Toilet Toilet Toilet Urinal Urinal Urinal - Exam GENERAL DESCRIPTION: An elderly male lying in bed in no distress RESPIRATORY SYSTEM: Unlabored breathing , decreased breath sounds at bases HEART: S1 S2 regular rate and rhythm , ABDOMEN: Soft , no tenderness EXTREMITIES: No edema feet - Labs CBC & Chem 7: 10/19/24 08:14 10/19/24 08:14 Labs: Abnormal Lab Results - Last 24 Hours (Table) 10/18/24 10/18/24 10/18/24 Range/Units 06:48 06:48 17:02 RBC (4.40-5.60) 10*6/uL Hgb (13.0-17.0) g/dL Hct (39.6-50.0) % MCV (80.0-97.0) fL MCH (27.0-32.0) pg Immature Gran # (0.00-0.04) 10*3/uL Eosinophils # (0.04-0.35) 10*3/uL Sodium (137-145) mmol/L BUN (9-20) mg/dL Creatinine (0.66-1.25) mg/dL Glucose (74-99) mg/dL POC Glucose (mg/dL) 265 H (70-110) mg/dL Iron 50 L (65-175) UG/DL Transferrin 174.0 L (204.0-354.0) mg/dL RBC Folate 1,092 H (280 - 791) ng/mL 10/19/24 10/19/24 10/19/24 Range/Units 00:06 05:58 08:14 RBC 2.56 L (4.40-5.60) 10*6/uL Hgb 9.0 L (13.0-17.0) g/dL Hct 26.7 L (39.6-50.0) % MCV 104.3 H (80.0-97.0) fL MCH 35.2 H (27.0-32.0) pg Immature Gran # 0.14 H (0.00-0.04) 10*3/uL Eosinophils # 0.00 L (0.04-0.35) 10*3/uL Sodium (137-145) mmol/L BUN (9-20) mg/dL Creatinine (0.66-1.25) mg/dL Glucose (74-99) mg/dL POC Glucose (mg/dL) 319 H 248 H (70-110) mg/dL Iron (65-175) UG/DL Transferrin (204.0-354.0) mg/dL RBC Folate (280 - 791) ng/mL 10/19/24 10/19/24 Range/Units 08:14 12:08 RBC (4.40-5.60) 10*6/uL Hgb (13.0-17.0) g/dL Hct (39.6-50.0) % MCV (80.0-97.0) fL MCH (27.0-32.0) pg Immature Gran # (0.00-0.04) 10*3/uL Eosinophils # (0.04-0.35) 10*3/uL Sodium 135 L (137-145) mmol/L BUN 23 H (9-20) mg/dL Creatinine 0.39 L (0.66-1.25) mg/dL Glucose 223 H (74-99) mg/dL POC Glucose (mg/dL) 259 H (70-110) mg/dL Iron (65-175) UG/DL Transferrin (204.0-354.0) mg/dL RBC Folate (280 - 791) ng/mL Assessment and Plan (1) Abnormal chest x-ray Current Visit: Yes Status: Acute Code(s): R93.89 - ABNORMAL FINDINGS ON DX IMAGING OF OTH BODY STRUCTURES SNOMED Code(s): 268726528 (2) Pneumonia Current Visit: No Status: Acute Priority: High Code(s): J18.9 - PNEUMONIA, UNSPECIFIED ORGANISM SNOMED Code(s): 961465155 (3) Leukocytosis Current Visit: Yes Status: Acute Code(s): D72.829 - ELEVATED WHITE BLOOD CELL COUNT, UNSPECIFIED SNOMED Code(s): 613351273 Plan: 1patient presented to hospital with progressive weakness in this patient who did have a history of head and neck cancer has been on chemotherapy now with evidence of abnormality seen on the chest x-ray with a question of possible metastatic disease clinically not behaving as pneumonia in this patient currently with no fever elevated white count other etiologies could be PE [address] of the chest did not show any consolidation with worsening metastatic disease 3patient blood culture has been negative sputum is growing Corynebacterium stratum however the patient did have normal procalcitonin and CT did not show any consolidation, not behaving as pneumonia 4leukocytosis more likely steroid related which has normalized and patient seem to be doing well off antibiotic therapy will continue monitor closely off antibiotics Dictation was produced using [employer] software. please excuse any grammatical, word or spelling errors.
--- NOTE | 2024-10-23 16:21 | CDI ---
Documentation Clarification Form Date: 10/23/2024 04:07:24 PM From: Maya Hernández Phone: Admit Date: 10/12/2024 10:37:00 PM Patient Name: Riki Gallagher Visit Number: [id number] Discharge Date: 10/20/2024 05:01:00 PM ATTENTION: The Clinical Documentation Specialists (CDI) and [facility] Coding Staff appreciate your assistance in clarifying documentation. Please respond to the clarification below the line at the bottom and electronically sign. The CDI & [facility] Coding staff will review the response and follow-up if needed. Please note: Queries are made part of the Legal Health Record. If you have any questions, please contact the author of this message via ITS. Doctor/Provider: Dimitri Bob Diabetes is documented throughout the notes in addition to elevated glucose readings. Please clarify if there is an additional diagnosis and/or clinical significance related to this value. History/Risk Factors: 74yo M, DMII, enlarging left parapharyngealmasswith cerebellum edema, metastatic pulmonary nodules, metabolic encephalopathy, persistent A Fib, AHRF, Ororph & lung Cx, HTN, hypovolemic,hyponatremia,anemia, oral thrush Clinical Indicators: Glucose: 5/ 149 5/2 126 5/3 133 5/4 205 5/5 205 5/6 213 5/7 219 5/8 223 5/9 213 Treatment: sliding scale insulin Please clarify the type of diabetes, if known: [ x ] Diabetes Type II with hyperglycemia [ ] Due to (please specify, i.e. steroid use, noncompliance) [ ] Diabetes Type II not complications [ ] Other, please specify [ ] Unable to Determine (Template Last Revised: August 2020) MTDD
== END 2024-10-20 17:01 | disposition home health service (06) | DRG 80 ==
LOC: EC 18:23 → 3SCARD 22:37
PROVIDERS: ADMIT Hospitalist; ATTEND Hospitalist
DX: G93.6 Cerebral edema (principal); G93.41 Metabolic encephalopathy; J96.01 Acute respiratory failure with hypoxia; C77.0 Secondary and unspecified malignant neoplasm of lymph nodes of head, face and neck; B37.0 Candidal stomatitis; E87.1 Hypo-osmolality and hyponatremia; D72.10 Eosinophilia, unspecified; H70.92 Unspecified mastoiditis, left ear; R13.12 Dysphagia, oropharyngeal phase; C34.12 Malignant neoplasm of upper lobe, left bronchus or lung; C34.11 Malignant neoplasm of upper lobe, right bronchus or lung; I50.22 Chronic systolic (congestive) heart failure; J44.0 Chronic obstructive pulmonary disease with (acute) lower respiratory infection; I48.19 Other persistent atrial fibrillation; C10.9 Malignant neoplasm of oropharynx, unspecified; C06.9 Malignant neoplasm of mouth, unspecified; I11.0 Hypertensive heart disease with heart failure; E11.65 Type 2 diabetes mellitus with hyperglycemia; D63.0 Anemia in neoplastic disease; D53.9 Nutritional anemia, unspecified; I25.10 Atherosclerotic heart disease of native coronary artery without angina pectoris; E86.1 Hypovolemia; E78.5 Hyperlipidemia, unspecified; Z79.891 Long term (current) use of opiate analgesic; Z79.01 Long term (current) use of anticoagulants; H91.90 Unspecified hearing loss, unspecified ear; J32.4 Chronic pansinusitis; T38.0X5A Adverse effect of glucocorticoids and synthetic analogues, initial encounter; Z93.1 Gastrostomy status; Z87.01 Personal history of pneumonia (recurrent); Z92.21 Personal history of antineoplastic chemotherapy; Z79.899 Other long term (current) drug therapy; I25.2 Old myocardial infarction; Z86.73 Personal history of transient ischemic attack (TIA), and cerebral infarction without residual deficits; Z85.89 Personal history of malignant neoplasm of other organs and systems; R53.81 Other malaise; R47.02 Dysphasia; Z96.60 Presence of unspecified orthopedic joint implant
CPT/HCPCS: 36415; 70450; 70553; 71046; 71275; 77334; 77470; 80048; 80053; 81003; 82140; 82607; 82728; 82746; 82747; 82803; 83036; 83540; 83550; 83605; 83735; 83880; 83921; 83930; 83935; 84132; 84145; 84295; 84300; 84439; 84443; 84484; 85025; 85045; 85379; 85610; 85730; 86140; 87040; 87070; 87205; 87449; 87636; 93005; 94640; 94760; 96365; 96366; 96368; 99291

== ENCOUNTER 2024-10-31 11:27 | Emergency (ER) | payer MEDICARE ==
--- NOTE | 2024-10-31 11:57 | CT ---
EXAMINATION TYPE: CT brain ryanine wo con DATE OF EXAM: 10/31/2024 COMPARISON: CT brain 19 days earlier CLINICAL INDICATION: Male, 74 years old with history of code coag, Code coag., TECHNIQUE: CT scan of the head and cervical spine are performed without contrast. CT DLP: 1315.6 mGycm. Automated Exposure Control for Dose Reduction was Utilized. FINDINGS: There is no acute intracranial hemorrhage or midline shift identified. Mild to moderate v entricular and sulcal prominence is redemonstrated. Mild low-attenuation in the periventricular white matter again seen. The calvarium is intact. The globes are intact bilaterally. Near complete opacification of bilateral frontal sinuses and moderate opacification of bilateral ethm oid sinuses. Dependent opacity with air-fluid level right sphenoid and maxillary sinus. Near complete opacification of left maxillary sinus. Cervical spine is visualized in its entirety from C1 through upper thoracic levels and demonstrates s atisfactory alignment without evidence of acute fracture or dislocation. Prevertebral soft tissue ap pears within normal limits. The C1-C2 articulation is within normal limits on the coronal images. V ertebral body heights and disc space heights are fairly well preserved. Posterior disc herniation at C5-C6 level is effacing the anterior thecal sac sagittal image 48. Axial images show some multilevel uncovertebral facet degenerative changes bilaterally. Thyroid gland is normal in size. Lung apices sh ow no pneumothorax. IMPRESSION: 1. There is no acute fracture or dislocation evident in the cervical spine. 2. No acute intracranial hemorrhage or midline shift is seen. [facility], , 10/31/2024 11:54 AM
--- NOTE | 2024-10-31 12:15 | ED ---
General Adult HPI - General Chief complaint: Head Injury Stated complaint: fall,head injury, thinners Time Seen by Provider: 10/31/24 11:31 Source: patient, RN notes reviewed Mode of arrival: ambulatory Limitations: no limitations - History of Present Illness Initial comments: 74-year-old male presents to the emergency department for evaluation of fall with head injury. Patient was sent in by oncology. The patient went to have treatment this morning and was given Xanax prior to his treatment. He states that this made him drowsy. He was walking out from his treatment and he fell. He does not recall striking his head although his noted that he had his a bump to the back of his head. He is on Eliquis. He did not lose consciousness. He denies any complaints at this time. - Related Data Home Medications Medication Instructions Recorded Confirmed Atorvastatin [Lipitor] 20 mg PEG/G-TUBE HS 07/21/24 10/12/24 HYDROcodone/APAP 10-325MG [[place] 1 tab PEG/G-TUBE QID PRN 07/21/24 10/12/24 10-325] Esomeprazole Magnesium [NexIUM] 20 mg PEG/G-TUBE BID PRN 10/12/24 10/12/24 Furosemide [Lasix] 40 mg PEG/G-TUBE DAILY PRN 10/12/24 10/12/24 Ondansetron Odt [Zofran ODT] 8 mg PEG/G-TUBE Q8H PRN 10/12/24 10/12/24 Potassium Chloride Oral Liquid 40 meq PEG/G-TUBE DAILY 10/12/24 10/12/24 Previous Rx's Medication Instructions Recorded Apixaban [Eliquis] 5 mg PEG/G-TUBE BID #28 tab 10/20/24 Insulin Glargine,Hum.rec.anlog 10 units SQ BID #1 each 10/20/24 [Lantus Solostar Pen] Insulin Lispro [humaLOG Kwikpen] 2 - 12 units SQ ACHS #1 each 10/20/24 Metoprolol Tartrate [Lopressor] 12.5 mg PEG/G-TUBE BID #28 tab 10/20/24 Nystatin 100,000 Unit/ml Susp 500,000 unit PO QID 4 Days #20 ml 10/20/24 [Mycostatin Oral Susp] dexAMETHasone ORAL [Hexadrol] 4 mg PO Q6H 14 Days #56 tab 10/20/24 Allergies Allergy/AdvReac Type Severity Reaction Status Date / Time Mushroom Allergy Unknown Verified 10/31/24 11:32 mushroom Allergy Unknown Verified 10/31/24 11:32 Review of Systems ROS Statement: Those systems with pertinent positive or pertinent negative responses have been documented in the HPI. ROS Other: All systems not noted in ROS Statement are negative. Past Medical History Past Medical History: Atrial Fibrillation, Cancer, Diabetes Mellitus, Hyperlipidemia, Myocardial Infarction ([place]) Additional Past Medical History / Comment(s): Spine CA C1/C2, CVA, Last Myocardial Infarction Date:: 2010 History of Any Multi-Drug Resistant Organisms: None Reported Past Surgical History: Joint Replacement Additional Past Surgical History / Comment(s): Peg tube, Past Anesthesia/Blood Transfusion Reactions: No Reported Reaction Past Psychological History: No Psychological Hx Reported Smoking Status: Never smoker Past Alcohol Use History: None Reported Past Drug Use History: None Reported General Exam Limitations: no limitations General appearance: alert, in no apparent distress Head exam: Present: atraumatic, normocephalic, normal inspection Eye exam: Present: normal appearance, PERRL, EOMI. Absent: scleral icterus, conjunctival injection, periorbital swelling ENT exam: Present: normal exam, mucous membranes moist Neck exam: Present: normal inspection. Absent: tenderness, meningismus, lymphadenopathy Respiratory exam: Present: normal lung sounds bilaterally. Absent: respiratory distress, wheezes, rales, rhonchi, stridor Cardiovascular Exam: Present: regular rate, normal rhythm, normal heart sounds. Absent: systolic murmur, diastolic murmur, rubs, gallop, clicks GI/Abdominal exam: Present: soft. Absent: distended, tenderness, guarding, rebound, rigid Extremities exam: Present: normal inspection, full ROM, normal capillary refill. Absent: tenderness, pedal edema, joint swelling, calf tenderness Back exam: Present: normal inspection Neurological exam: Present: alert, oriented X3 Psychiatric exam: Present: normal affect, normal mood Skin exam: Present: warm, dry, intact, normal color. Absent: rash Course Vital Signs 10/31/24 10/31/24 11:28 11:46 Temperature 97.5 F L Pulse Rate 74 80 Respiratory 18 20 Rate Blood Pressure 111/74 119/89 O2 Sat by Pulse 98 98 Oximetry Medical Decision Making - Medical Decision Making Was pt. sent in by a medical professional or institution (DULCE Hubbard, SEPARATOR OPERATOR, urgent care, hospital, or correction...) When possible be specific @ -The patient was sent in by Sarah Giraldo NP with oncology Did you speak to anyone other than the patient for history (EMS, parent, family, police, friend...)? What history was obtained from this source @ -Patient's provided some history of this patient Did you review nursing and triage notes (agree or disagree)? Why? @ -I reviewed and agree with nursing and triage notes Were old charts reviewed (outside hosp., previous admission, EMS record, old EKG, old radiological studies, urgent care reports/EKG's, correction records)? Report findings @ -No old charts were reviewed Differential Diagnosis (chest pain, altered mental status, abdominal pain women, abdominal pain men, vaginal bleeding, weakness, fever, dyspnea, syncope, headache, dizziness, GI bleed, back pain, seizure, CVA, palpatations, mental health, musculoskeletal)? @ -Fall, head injury, intracranial hemorrhage, fracture, EKG interpreted by me (3pts min.). @ -None X-rays interpreted by me (1pt min.). @ -None done CT interpreted by me (1pt min.). @ -CT of the brain and C-spine reveals no acute intracranial hemorrhage, no evidence of mass effect, cervical spine reveals no acute fracture or traumatic malalignment U/S interpreted by me (1pt. min.). @ -None done What testing was considered but not performed or refused? (CT, X-rays, U/S, labs)? Why? @ -None What meds were considered but not given or refused? Why? @ -None Did you discuss the management of the patient with other professionals (p prernafessionalflorecita i.e. DULCE Hubbard, SEPARATOR OPERATOR, lab, RT, psych nurse, social science analyst, legal support analyst, teacher, juvenile correctional officer, rehabilitation case coordinator)? Give summary @ -Case was discussed with Sarah Giraldo NP with oncology who sent the patient in for CT brain Was smoking cessation discussed for >3mins.? @ -No Was critical care preformed (if so, how long)? @ -No Were there social determinants of health that impacted care today? How? (Homelessness, low income, unemployed, alcoholism, drug addiction, transportation, low edu. Level, literacy, decrease access to med. care, half-way, rehab)? @ -No Was there de-escalation of care discussed even if they declined (Discuss DNR or withdrawal of care, Hospice)? DNR status @ -No What co-morbidities impacted this encounter? (DM, HTN, Smoking, COPD, CAD, Cancer, CVA, ARF, Chemo, Hep., AIDS, mental health diagnosis, sleep apnea, morbid obesity)? @ -None Was patient admitted / discharged? Hospital course, mention meds given and route, prescriptions, significant lab abnormalities, going to OR and other pertinent info. @ -Discharge. Patient presented to the emergency department for fall with head injury. He is on blood thinners. A code coag was called by hand hide stretcher. Patient has no focal neurological deficits. Moving all extremities without limitations. Patient was sent to CT scan. CT of the brain and C-spine reveals no acute process. Patient was advised on findings. Patient will be discharged home. Understanding agreeable to plan. Patient stable at time of discharge. Case discussed with Dr. Hector. Undiagnosed new problem with uncertain prognosis? @ -No Drug Therapy requiring intensive monitoring for toxicity (Heparin, Nitro, Insulin, Cardizem)? @ -No Were any procedures done? @ -No Diagnosis/symptom? @ -Fall, head injury on blood thinners Acute, or Chronic, or Acute on Chronic? @ -Acute Uncomplicated (without systemic symptoms) or Complicated (systemic symptoms)? @ -uncomplicated Side effects of treatment? @ -No Exacerbation, Progression, or Severe Exacerbation? @ -No Poses a threat to life or bodily function? How? (Chest pain, [place], [place], pneumonia, PE, COPD, DKA, ARF, appy, cholecystitis, CVA, Diverticulitis, Homicidal, Suicidal, threat to staff... and all critical care pts) @ -No Disposition Clinical Impression: Closed head injury Disposition: HOME SELF-CARE Condition: Stable Instructions (If sedation given, give patient instructions): Head Injury (ED), Fall Prevention (ED) Additional Instructions: Please follow up with your doctor. Return to the emergency department for new or worsening symptoms. Is patient prescribed a controlled substance at d/c from ED?: No Referrals: Boris Mcclendon DO [Primary Care Provider] - 1-2 days
[2024-10-31 13:20] VITALS: BP 112/82; PULSE 83; RESP 18; TEMP 97.8
== END 2024-10-31 13:20 | disposition home or self-care (01) ==
LOC: EC 11:27
DX: S09.90XA Unspecified injury of head, initial encounter (principal); Z91.018 Allergy to other foods; W19.XXXA Unspecified fall, initial encounter; Y93.01 Activity, walking, marching and hiking
CPT/HCPCS: 70450; 72125; 99283

== ENCOUNTER 2024-11-21 19:21 | Inpatient (IN) | payer MEDICARE ==
--- NOTE | 2024-11-21 19:54 | ED ---
Syncope HPI - General Chief Complaint: Syncope Stated Complaint: Syncope Time Seen by Provider: 11/21/24 19:22 Source: patient, family, EMS, RN notes reviewed, old records reviewed Mode of arrival: EMS Limitations: no limitations - History of Present Illness Initial Comments: This is a 74-year-old male to the ER for evaluation patient [facility] for evalu ation of a syncopal event patient came home from infusion as normal today and noted him to be more somnolent or sleeping she went to wake him up to do his feeding and he was unresponsive she got him up and his eyes rolled the back of his head and became persistently unresponsive EMS arrived he was able to become alert but definitely pale and diaphoretic and found to be very tachycardic. Patient himself just feels weak here in the ER and lightheaded. No chest pain MD Complaint: loss of consciousness, collapsed -: minutes(s) Prodromal Symptoms: lightheaded, other (Weakness) -: minutes(s) Witnessed: yes - by bystander, yes - by EMS Injuries Sustained Associated with Event: None Current Symptoms: lightheaded History: previous syncopal episode Treatments Prior to Arrival: none - Related Data Home Medications Medication Instructions Recorded Confirmed Atorvastatin [Lipitor] 20 mg PEG/G-TUBE HS 07/21/24 11/22/24 HYDROcodone/APAP 10-325MG [[place] 1 tab PEG/G-TUBE QID PRN 07/21/24 11/22/24 10-325] Ondansetron Odt [Zofran ODT] 8 mg PEG/G-TUBE Q8H PRN 10/12/24 11/22/24 ALPRAZolam [Xanax] 0.5 mg PEG/G-TUBE DAILY PRN 11/22/24 11/22/24 Insulin Aspart [NovoLOG Flexpen] See Protocol SQ ACHS 11/22/24 11/22/24 Insulin Glargine,Hum.rec.anlog 12 units SQ BID 11/22/24 11/22/24 [Lantus Solostar Pen] Omeprazole [PriLOSEC] 20 mg PEG/G-TUBE DAILY 11/22/24 11/22/24 dexAMETHasone [Decadron] 4 mg PEG/G-TUBE BID 11/22/24 11/22/24 Previous Rx's Medication Instructions Recorded Apixaban [Eliquis] 5 mg PEG/G-TUBE BID #28 tab 10/20/24 Metoprolol Tartrate [Lopressor] 25 mg PEG/G-TUBE BID #90 tab 11/25/24 Allergies Allergy/AdvReac Type Severity Reaction Status Date / Time Mushroom Allergy Unknown Verified 11/22/24 09:54 mushroom Allergy Unknown Verified 11/22/24 09:54 Review of Systems ROS Statement: Those systems with pertinent positive or pertinent negative responses have been documented in the HPI. ROS Other: All systems not noted in ROS Statement are negative. Past Medical History Past Medical History: Atrial Fibrillation, Cancer, Diabetes Mellitus, Hyperlipidemia, Myocardial Infarction ([place]) Additional Past Medical History / Comment(s): Spine CA C1/C2, CVA, Last Myocardial Infarction Date:: 2010 History of Any Multi-Drug Resistant Organisms: None Reported Past Surgical History: Joint Replacement Additional Past Surgical History / Comment(s): Peg tube, Past Anesthesia/Blood Transfusion Reactions: No Reported Reaction Past Psychological History: No Psychological Hx Reported Smoking Status: Never smoker Past Alcohol Use History: None Reported Past Drug Use History: None Reported - Past Family History Father Family Medical History: No Reported History Mother Family Medical History: No Reported History Brother(s) Additional Family Medical History / Comment(s): liver disease General Exam General appearance: alert, in no apparent distress Head exam: Present: atraumatic, normocephalic, normal inspection Eye exam: Present: normal appearance, PERRL, EOMI. Absent: scleral icterus, conjunctival injection, periorbital swelling ENT exam: Present: normal exam, mucous membranes moist Neck exam: Present: normal inspection. Absent: tenderness, meningismus, lymphadenopathy Respiratory exam: Present: normal lung sounds bilaterally. Absent: respiratory distress, wheezes, rales, rhonchi, stridor Cardiovascular Exam: Present: tachycardia, irregular rhythm, normal heart sounds. Absent: systolic murmur, diastolic murmur, rubs, gallop, clicks GI/Abdominal exam: Present: soft, normal bowel sounds. Absent: distended, tenderness, guarding, rebound, rigid Extremities exam: Present: normal inspection, full ROM, normal capillary refill. Absent: tenderness, pedal edema, joint swelling, calf tenderness Back exam: Present: normal inspection Neurological exam: Present: alert, oriented X3, CN II-XII intact Psychiatric exam: Present: normal affect, normal mood Skin exam: Present: warm, dry, intact, normal color. Absent: rash Course Vital Signs 11/21/24 11/21/24 11/21/24 19:22 20:50 21:23 Temperature 98.8 F Pulse Rate 116 H 93 Pulse Rate [ 112 H Master [place] ] Respiratory 18 17 Rate Blood Pressure 132/72 149/65 Blood Pressure [Right Arm] O2 Sat by Pulse 96 94 L Oximetry 11/22/24 11/22/24 11/22/24 00:00 05:17 08:00 Temperature 98.2 F Pulse Rate 86 84 Pulse Rate [ 85 [place] ] Respiratory 17 17 17 Rate Blood Pressure 118/69 102/55 Blood Pressure 99/67 [Right Arm] O2 Sat by Pulse 92 L 97 95 Oximetry 11/22/24 11/22/24 11/22/24 12:00 14:57 15:24 Temperature 98.6 F Pulse Rate 84 Pulse Rate [ 85 [place] ] Respiratory 17 18 Rate Blood Pressure 96/62 93/71 Blood Pressure 94/63 [Right Arm] O2 Sat by Pulse 95 Oximetry 11/22/24 11/22/24 11/22/24 18:00 21:00 22:00 Temperature 97.8 F Pulse Rate 79 75 Pulse Rate [ 81 [place] ] Respiratory 18 14 16 Rate Blood Pressure 108/75 118/90 Blood Pressure 91/62 [Right Arm] O2 Sat by Pulse 100 95 96 Oximetry 11/22/24 22:30 Temperature Pulse Rate 101 H Pulse Rate [ Master [place] ] Respiratory 18 Rate Blood Pressure 97/64 Blood Pressure [Right Arm] O2 Sat by Pulse 99 Oximetry - Reevaluation(s) Reevaluation #1: 11/21/24 20:35 Medical records reviewed Reevaluation #2: 11/21/24 20:35 No recurrent syncope here in the ER, atrial fibrillation heart rate is improving Reevaluation #3: 11/21/24 20:35 Informed of results and questions answered Reevaluation #4: Was pt. sent in by a medical professional or institution (, PA, EVIDENCE SPECIALIST, urgent care, hospital, or senior care...) When possible be specific @ -no Did you speak to anyone other than the patient for history (EMS, parent, family, police, friend...)? What history was obtained from this source @ -no Did you review nursing and triage notes (agree or disagree)? Why? @ -agree Are old charts reviewed (outside hosp., previous admission, EMS record, old EKG, old radiological studies, urgent care reports/EKG's, senior care records)? Report findings @ -yes Differential Diagnosis (chest pain, altered mental status, abdominal pain women, abdominal pain men, vaginal bleeding, weakness, fever, dyspnea, syncope, headache, dizziness, GI bleed, back pain, seizure, CVA, palpatations, mental health, musculoskeletal)? @ -prior EKG interpreted by me (3pts min.). @ -yes X-rays interpreted by me (1pt min.). @ no CT interpreted by me (1pt min.). @ -no U/S interpreted by me (1pt. min.). @ -no What testing was considered but not performed or refused? (CT, X-rays, U/S, labs)? Why? @ -none What meds were considered but not given or refused? Why? @ -none Did you discuss the management of the patient with other professionals (professionals i.e. , PA, EVIDENCE SPECIALIST, lab, RT, psych nurse, rn social work, coding team lead, teacher, education officer, caser up)? Give summary @ -no Was smoking cessation discussed for >3mins.? @ -no Was critical care preformed (if so, how long)? @ -no Were there social determinants of health that impacted care today? How? (Homelessness, low income, unemployed, alcoholism, drug addiction, transportation, low edu. Level, literacy, decrease access to med. care, long-term, rehab)? @ -none Was there de-escalation of care discussed even if they declined (Discuss DNR or withdrawal of care, Hospice)? DNR status @ -no What co-morbidities impacted this encounter? (DM, HTN, Smoking, COPD, CAD, Cancer, CVA, ARF, Chemo, Hep., AIDS, mental health diagnosis, sleep apnea, morbid obesity)? @ -none Was patient admitted / discharged? Hospital course, mention meds given and route, prescriptions, significant lab abnormalities, going to OR and other pert inent info. @ - 74 male to be admitted for A-fib with RVR and with syncope. Patient will be admitted for heart rate control and monitoring of syncopal event Admitted Undiagnosed new problem with uncertain prognosis? @ -no Drug Therapy requiring intensive monitoring for toxicity (Heparin, Nitro, I nsulin, Cardizem)? @ -no Were any procedures done? @ -no Diagnosis/symptom? @ -A-fib with RVR and syncope Acute, or Chronic, or Acute on Chronic? @ -Acute Uncomplicated (without systemic symptoms) or Complicated (systemic symptoms)? @ -Complicated Side effects of treatment? @ -no Exacerbation, Progression, or Severe Exacerbation? @ -exacerbation Poses a threat to life or bodily function? How? (Chest pain, [place], [place], pneumonia, PE, COPD, DKA, ARF, appy, cholecystitis, CVA, Diverticulitis, Homicidal, Suicidal, threat to staff... and all critical care pts) @ -yes arrhythmia Reevaluation #5: Differential Palpitations Ventricular arrhythmias, atrial arrhythmias, myocardial infarction, anemia, thyrotoxicosis, electrolyte imbalance, hypokalemia, pulmonary embolism, pulmonary disease, drugs, alcohol, anxiety, stress.... This is not meant to be an all-inclusive list. Differential Syncope: Valvular disease, hypertrophic cardiomyopathy, pulmonary embolism, tamponade, tachycardia, bradycardia, [place], hypovolemia, hemorrhage, dissection, anemia, intracranial hemorrhage, seizure, hypoglycemia, carbon monoxide poisoning, this is not meant to be an all-inclusive list. - Consultations Consultation #1: Spoke with [facility] who agrees to admit this patient EKG Findings - EKG Comments: EKG Findings:: EKG is A-fib with RVR 129 QRS 69 QTc 367 - EKG Results: EKG: interpreted by DEREJED Medical Decision Making - Medical Decision Making 74 male to be admitted for A-fib with RVR and with syncope. Patient will be admitted for heart rate control and monitoring of syncopal event - Lab Data Result diagrams: 11/24/24 06:30 11/25/24 07:32 Lab Results 11/21/24 11/21/24 11/21/24 Range/Units 19:55 19:55 19:55 WBC 3.02 L (4.50-10.00) 10*3/uL RBC 2.73 L (4.40-5.60) 10*6/uL Hgb 9.8 L (13.0-17.0) g/dL Hct 27.6 L (39.6-50.0) % MCV 101.1 H (80.0-97.0) fL MCH 35.9 H (27.0-32.0) pg MCHC 35.5 (32.0-37.0) g/dL Plt Count 105 L D (140-440) 10*3/uL MPV 10.2 (9.5-12.2) fL Immature Gran % (Auto) 4.3 % Neutrophils % (Manual) 52 % Band Neuts % (Manual) 16 % Lymphocytes % (Manual) 27 % Monocytes % (Manual) 3 % Metamyelocytes % 1 % Myelocytes % 3 % Immature Gran # 0.13 H (0.00-0.04) 10*3/uL Neutrophils # (Manual) 2.05 (1.3-7.7) k/uL Lymphocytes # (Manual) 0.82 L (1.0-4.8) k/uL Monocytes # (Manual) 0.09 (0-1.0) k/uL Metamyelocytes # (Man) 0.03 H (0) k/uL Myelocytes # (Manual) 0.09 H (0) k/uL Nucleated RBCs 0 (0-0) /100 WBC Manual Slide Review Performed Large Platelets Present Polychromasia Present PT 12.3 (10.0-12.5) sec INR 1.1 (<1.2) APTT 23.5 (22.0-30.0) sec D-Dimer 0.66 H (<0.60) mg/L FEU Sodium 128 L (137-145) mmol/L Potassium 4.0 (3.5-5.1) mmol/L Chloride 95 L (98-107) mmol/L Carbon Dioxide 25 (22-30) mmol/L Anion Gap 8 mmol/L BUN 18 (9-20) mg/dL Creatinine 0.43 L (0.66-1.25) mg/dL Est GFR (CKD-EPI)AfAm >90 (>60 ml/min/1.73 sqM) Est GFR (CKD-EPI)NonAf >90 (>60 ml/min/1.73 sqM) Glucose 101 H (74-99) mg/dL Lactic Ac Sepsis Rflx Plasma Lactic Acid Jarod (0.7-2.0) mmol/L Calcium 7.8 L (8.4-10.2) mg/dL Phosphorus 3.8 (2.5-4.5) mg/dL Magnesium 1.4 L (1.6-2.3) mg/dL Total Bilirubin 1.0 (0.2-1.3) mg/dL AST 23 (17-59) U/L ALT 23 (4-49) U/L Alkaline Phosphatase 58 (38-126) U/L Troponin I (0.000-0.034) ng/mL NT-Pro-B Natriuret Pep 1620 pg/mL Total Protein 5.0 L (6.3-8.2) g/dL Albumin 2.8 L (3.5-5.0) g/dL 11/21/24 11/21/24 11/21/24 Range/Units 19:55 19:55 20:48 WBC (4.50-10.00) 10*3/uL RBC (4.40-5.60) 10*6/uL Hgb (13.0-17.0) g/dL Hct (39.6-50.0) % MCV (80.0-97.0) fL MCH (27.0-32.0) pg MCHC (32.0-37.0) g/dL Plt Count (140-440) 10*3/uL MPV (9.5-12.2) fL Immature Gran % (Auto) % Neutrophils % (Manual) % Band Neuts % (Manual) % Lymphocytes % (Manual) % Monocytes % (Manual) % Metamyelocytes % % Myelocytes % % Immature Gran # (0.00-0.04) 10*3/uL Neutrophils # (Manual) (1.3-7.7) k/uL Lymphocytes # (Manual) (1.0-4.8) k/uL Monocytes # (Manual) (0-1.0) k/uL Metamyelocytes # (Man) (0) k/uL Myelocytes # (Manual) (0) k/uL Nucleated RBCs (0-0) /100 WBC Manual Slide Review Large Platelets Polychromasia PT (10.0-12.5) sec INR (<1.2) APTT (22.0-30.0) sec D-Dimer (<0.60) mg/L FEU Sodium (137-145) mmol/L Potassium (3.5-5.1) mmol/L Chloride (98-107) mmol/L Carbon Dioxide (22-30) mmol/L Anion Gap mmol/L BUN (9-20) mg/dL Creatinine (0.66-1.25) mg/dL Est GFR (CKD-EPI)AfAm (>60 ml/min/1.73 sqM) Est GFR (CKD-EPI)NonAf (>60 ml/min/1.73 sqM) Glucose (74-99) mg/dL Lactic Ac Sepsis Rflx Y Plasma Lactic Acid Jarod 3.3 H* (0.7-2.0) mmol/L Calcium (8.4-10.2) mg/dL Phosphorus (2.5-4.5) mg/dL Magnesium (1.6-2.3) mg/dL Total Bilirubin (0.2-1.3) mg/dL AST (17-59) U/L ALT (4-49) U/L Alkaline Phosphatase (38-126) U/L Troponin I 0.037 H* (0.000-0.034) ng/mL NT-Pro-B Natriuret Pep pg/mL Total Protein (6.3-8.2) g/dL Albumin (3.5-5.0) g/dL - EKG Data -: EKG Interpreted by Me Critical Care Time Critical Care Time: Yes Total Critical Care Time: 31 Disposition Clinical Impression: Weak, Atrial fibrillation with RVR, Syncope Disposition: ADMITTED IP TO THIS HOSP Condition: Fair Is patient prescribed a controlled substance at d/c from ED?: No Time of Disposition: 20:30
[2024-11-21 20:14] LABS: HCT 27.6 % (39.6-50.0); HGB 9.8 g/dL (13.0-17.0); MCH 35.9 pg (27.0-32.0); MCHC 35.5 g/dL (32.0-37.0); MCV 101.1 fL (80.0-97.0); Mean Platelet Volume 10.2 fL (9.5-12.2); RBC 2.73 10*6/uL (4.40-5.60); RDW 14.6 % (11.5-14.5); WBC 3.02 10*3/uL (4.50-10.00)
[2024-11-21] MEDS: SODIUM CHLORIDE 0.9% 1,000 ML IV ONE (20:16)
[2024-11-21 20:21] LABS: Platelet Count 105 10*3/uL (140-440)
[2024-11-21 20:25] LABS: INR 1.1 (<1.2)
[2024-11-21 20:26] LABS: Partial Thromboplastin Time 23.5 sec (22.0-30.0); Prothrombin Time 12.3 sec (10.0-12.5)
[2024-11-21 20:29] LABS: ALT 23 U/L (4-49); AST 23 U/L (17-59); African American GFR (CKD) >90 (>60 ml/min/1.73 sqM); Albumin 2.8 g/dL (3.5-5.0); Alkaline Phosphatase 58 U/L (38-126); Anion Gap 8 mmol/L; Blood Urea Nitrogen 18 mg/dL (9-20); Calcium 7.8 mg/dL (8.4-10.2); Carbon Dioxide 25 mmol/L (22-30); Chloride 95 mmol/L (98-107); Glucose 101 mg/dL (74-99); Magnesium 1.4 mg/dL (1.6-2.3); Non-African American GFR(CKD) >90 (>60 ml/min/1.73 sqM); Phosphorus 3.8 mg/dL (2.5-4.5); Sodium 128 mmol/L (137-145)
[2024-11-21 20:38] LABS: NT-Pro-B-Type Natriuretic Pept 1620 pg/mL
[2024-11-21] MEDS: DILTIAZEM 5 MG/ML 5 ML VIAL IVP STA (21:13)
[2024-11-21] MEDS: DILTIAZEM 125 MG in DEXTROSE 5% IN WATER 100 ML IV SCH (21:14)
[2024-11-21 21:15] LABS: Band Neutrophils % 16 %; Lymphocytes # (M) 0.82 k/uL (1.0-4.8); Metamyelocytes # (M) 0.03 k/uL (0); Metamyelocytes % 1 %; Monocytes # (M) 0.09 k/uL (0-1.0); Myelocytes # (M) 0.09 k/uL (0); Myelocytes % 3 %; Neutrophils # (M) 2.05 k/uL (1.3-7.7); Neutrophils % (M) 52 %; Nucleated Red Blood Cells 0 /100 WBC (0-0); Total Cells Counted 200
[2024-11-21 21:16] LABS: Polychromasia Present
[2024-11-21 21:17] LABS: Large Platelets Present
[2024-11-21] MEDS ORDERED: MORPHINE SULFATE 4 MG/ML SYRINGE IV PRN (21:30)
[2024-11-21] MEDS ORDERED: ONDANSETRON 4 MG/2 ML VIAL IVP PRN (21:30)
[2024-11-21] MEDS ORDERED: NALOXONE 0.4 MG/ML 1 ML VIAL IV PRN (21:30)
[2024-11-21] MEDS: SODIUM CHLORIDE 0.9% 1,000 ML IV SCH (22:03)
[2024-11-22 03:29] LABS: ALT 21 U/L (4-49); AST 22 U/L (17-59); African American GFR (CKD) >90 (>60 ml/min/1.73 sqM); Albumin 2.6 g/dL (3.5-5.0); Alkaline Phosphatase 55 U/L (38-126); Anion Gap 6 mmol/L; Blood Urea Nitrogen 15 mg/dL (9-20); Calcium 7.9 mg/dL (8.4-10.2); Carbon Dioxide 25 mmol/L (22-30); Chloride 98 mmol/L (98-107); Glucose 96 mg/dL (74-99); Magnesium 1.6 mg/dL (1.6-2.3); Non-African American GFR(CKD) >90 (>60 ml/min/1.73 sqM); Phosphorus 3.9 mg/dL (2.5-4.5); Potassium 4.2 mmol/L (3.5-5.1); Sodium 129 mmol/L (137-145); Total Bilirubin 0.8 mg/dL (0.2-1.3); Total Protein 4.8 g/dL (6.3-8.2)
[2024-11-22 03:43] LABS: HCT 28.1 % (39.6-50.0); MCH 35.7 pg (27.0-32.0); MCHC 35.6 g/dL (32.0-37.0); MCV 100.4 fL (80.0-97.0); Mean Platelet Volume 10.6 fL (9.5-12.2); RDW 14.4 % (11.5-14.5); WBC 4.32 10*3/uL (4.50-10.00)
[2024-11-22 03:47] LABS: Platelet Count 92 10*3/uL (140-440)
[2024-11-22 06:57] LABS: Band Neutrophils % 34 %; Lymphocytes # (M) 0.35 k/uL (1.0-4.8); Monocytes # (M) 0.17 k/uL (0-1.0); Neutrophils % (M) 54 %; Nucleated Red Blood Cells 0 /100 WBC (0-0); Total Cells Counted 100; Toxic Granulation Present
--- NOTE | 2024-11-22 10:18 | P.CRDCN ---
History of Present Illness History of present illness: HISTORY OF PRESENT ILLNESS: This is a 74-year-old male with a past medical history significant for neck cancer status post chemotherapy, atrial fibrillation, congestive heart failure, hyperlipidemia, and PEG tube insertion. 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 We have been asked to see the patient in consultation for A-fib with RVR. Patient examined at the bedside in the emergency room. Patient presented to the emergency room with chief complaint of feeling dizzy. Accordin g to the patient he did not lose consciousness. He continues to report weakness this morning. He denies any chest pain or shortness of breath. Patient was found to be in A-fib with RVR and was started on IV Cardizem. He remains in atrial fibrillation with a heart rate in the 70s at the time of examination DIAGNOSTICS: - EKG reveals A-fib with RVR - Laboratory data: WBC 4.32. Hemoglobin 10.0. Platelet count 92. Sodium 129. Potassium 4.2. BUN 15. Creatinine 0.42. Lactic acid 3.3. Repeat 1.8. Troponin 0.037. 0.042. 0.037. proBNP 1620. - Current home cardiac medications include Eliquis 5 mg twice a day, metoprolol tartrate 25 mg twice a day, Lipitor 20 mg at night, Lasix 40 mg daily as needed - Most recent echocardiogram obtained in July 2024 revealing ejection fraction 45 to 50%, mild MR, mild TR - Cardiac catheterization history: Unknown REVIEW OF SYSTEMS: At the time of my exam: CONSTITUTIONAL: Denies fever or chills. HEENT: Denies blurred vision, vision changes, or eye pain. Denies hemoptysis CARDIOVASCULAR: Denies chest pain. Denies orthopnea. Denies PND. Denies palpitations RESPIRATORY: Denies shortness of breath. GASTROINTESTINAL: Denies abdominal pain. Denies nausea or vomiting. HEMATOLOGIC: Denies bleeding disorders. GENITOURINARY: Denies any blood in urine. SKIN: Denies pruitis. Denies rash. PHYSICAL EXAM: VITAL SIGNS: Reviewed. GENERAL: Well-developed in no acute distress. HEENT: Head is normocephalic. Pupils are equal, round. Sclerae anicteric. Mucous membranes of the mouth are moist. Neck supple. No JVD or thyromegaly LUNGS: Respirations even and unlabored. Lungs essentially clear to auscultation bilaterally. HEART: Irregular rate and rhythm. S1 and S2 heard. ABDOMEN: Soft. Nondistended. Nontender. EXTREMITIES: Normal range of motion. No clubbing or cyanosis. Peripheral pulses intact. No lower extremity edema NEUROLOGIC: Awake and alert. ASSESSMENT: Presyncope Hyponatremia Elevated lactic acid, resolved Persistent atrial fibrillation with RVR Elevated troponin, flat, type II [place] secondary to oxygen supply/demand mismatch History of neck cancer status post chemotherapy Chronic heart failure with mildly reduced EF, 45%, currently euvolemic Hyperlipidemia History of PEG tube insertion Thrombocytopenia PLAN: No need to repeat echocardiogram as this was performed in July 2024 Resume anticoagulation with Eliquis Discontinue IV Cardizem. Begin metoprolol tartrate 25 mg 3 times daily Continue telemetry monitoring Further recommendations pending patient course Nurse practitioner note has been reviewed by physician. Signing provider agrees with the documented findings, assessment, and plan of care documented by [employer] UTILITY WORKER as a scribe. Past Medical History Past Medical History: Atrial Fibrillation, Cancer, Diabetes Mellitus, Hyperlipidemia, Myocardial Infarction ([place]) Additional Past Medical History / Comment(s): Spine CA C1/C2, CVA, Last Myocardial Infarction Date:: 2010 History of Any Multi-Drug Resistant Organisms: None Reported Past Surgical History: Joint Replacement Additional Past Surgical History / Comment(s): Peg tube, Past Anesthesia/Blood Transfusion Reactions: No Reported Reaction Past Psychological History: No Psychological Hx Reported Smoking Status: Never smoker Past Alcohol Use History: None Reported Past Drug Use History: None Reported Medications and Allergies Home Medications Medication Instructions Recorded Confirmed Type Atorvastatin [Lipitor] 20 mg PEG/G-TUBE HS 07/21/24 11/22/24 History HYDROcodone/APAP 10-325MG [[place] 1 tab PEG/G-TUBE QID PRN 07/21/24 11/22/24 History 10-325] Furosemide [Lasix] 40 mg PEG/G-TUBE DAILY PRN 10/12/24 11/22/24 History Ondansetron Odt [Zofran ODT] 8 mg PEG/G-TUBE Q8H PRN 10/12/24 11/22/24 History Apixaban [Eliquis] 5 mg PEG/G-TUBE BID #28 tab 10/20/24 11/22/24 Rx ALPRAZolam [Xanax] 0.5 mg PEG/G-TUBE DAILY PRN 11/22/24 11/22/24 History Insulin Aspart [NovoLOG Flexpen] See Protocol SQ ACHS 11/22/24 11/22/24 History Insulin Glargine,Hum.rec.anlog 12 units SQ BID 11/22/24 11/22/24 History [Lantus Solostar Pen] Metoprolol Tartrate [Lopressor] 25 mg PEG/G-TUBE BID 11/22/24 11/22/24 History Omeprazole [PriLOSEC] 20 mg PEG/G-TUBE DAILY 11/22/24 11/22/24 History Potassium Chloride 20 meq PEG/G-TUBE DAILY 11/22/24 11/22/24 History dexAMETHasone [Decadron] 4 mg PEG/G-TUBE BID 11/22/24 11/22/24 History Allergies Allergy/AdvReac Type Severity Reaction Status Date / Time Mushroom Allergy Unknown Verified 11/22/24 09:54 mushroom Allergy Unknown Verified 11/22/24 09:54 Physical Exam Vitals: Vital Signs Temp Pulse Pulse Resp BP Pulse Ox 11/22/24 05:17 84 17 102/55 97 11/22/24 00:00 86 17 118/69 92 L 11/21/24 21:23 93 17 149/65 94 L 11/21/24 20:50 112 H 11/21/24 19:22 98.8 F 116 H 18 132/72 96 Intake and Output 11/21/24 11/22/24 11/22/24 22:59 06:59 14:59 Other: Weight 77.111 kg Results 11/22/24 02:52 11/22/24 02:52 Cardiac Enzymes 11/21/24 11/21/24 11/21/24 Range/Units 19:55 19:55 23:17 AST 23 (17-59) U/L Troponin I 0.037 H* 0.042 H* (0.000-0.034) ng/mL 11/22/24 11/22/24 Range/Units 02:52 02:52 AST 22 (17-59) U/L Troponin I 0.037 H* (0.000-0.034) ng/mL Coagulation 11/21/24 Range/Units 19:55 PT 12.3 (10.0-12.5) sec APTT 23.5 (22.0-30.0) sec CBC 11/21/24 11/22/24 Range/Units 19:55 02:52 WBC 3.02 L 4.32 L (4.50-10.00) 10*3/uL RBC 2.73 L 2.80 L (4.40-5.60) 10*6/uL Hgb 9.8 L 10.0 L (13.0-17.0) g/dL Hct 27.6 L 28.1 L (39.6-50.0) % Plt Count 105 L D 92 L (140-440) 10*3/uL Comprehensive Metabolic Panel 11/21/24 11/22/24 Range/Units 19:55 02:52 Sodium 128 L 129 L (137-145) mmol/L Potassium 4.0 4.2 (3.5-5.1) mmol/L Chloride 95 L 98 (98-107) mmol/L Carbon Dioxide 25 25 (22-30) mmol/L BUN 18 15 (9-20) mg/dL Creatinine 0.43 L 0.42 L (0.66-1.25) mg/dL Glucose 101 H 96 (74-99) mg/dL Calcium 7.8 L 7.9 L (8.4-10.2) mg/dL AST 23 22 (17-59) U/L ALT 23 21 (4-49) U/L Alkaline Phosphatase 58 55 (38-126) U/L Total Protein 5.0 L 4.8 L (6.3-8.2) g/dL Albumin 2.8 L 2.6 L (3.5-5.0) g/dL Current Medications Generic Name Dose Route Start Last Admin Trade Name Freq PRN Reason Stop Dose Admin Diltiazem HCl 125 mg/ Dextrose 125 mls @ 5 mls/hr 11/21/24 20:45 11/21/24 21:14 /Water IV 5 mg/hr .Q24H AJIT 5 mls/hr Administration Protocol 5 MG/HR Sodium Chloride 1,000 mls @ 75 mls/hr 11/21/24 21:30 11/21/24 22:03 Saline 0.9% IV 75 mls/hr .[id number] AJIT Administration Morphine Sulfate 4 mg 11/21/24 21:30 Morphine Sulfate 4 Mg/Ml Syringe IV Q4HR PRN Severe Pain (Scale 7 to 10) Naloxone HCl 0.2 mg 11/21/24 21:30 Naloxone 0.4 Mg/Ml 1 Ml Vial IV Q2M PRN Opioid Reversal Ondansetron HCl 4 mg 11/21/24 21:30 Ondansetron 4 Mg/2 Ml Vial IVP Q8HR PRN Nausea And Vomiting Pantoprazole Sodium 40 mg 11/22/24 09:00 Pantoprazole 40 Mg/10 Ml Vial IV DAILY AJIT Intake and Output 11/21/24 11/22/24 11/22/24 22:59 06:59 14:59 Other: Weight 77.111 kg 11/22/24 02:52 11/22/24 02:52
[2024-11-22] MEDS: APIXABAN 5 MG TAB PO SCH (10:46)
[2024-11-22] MEDS: METOPROLOL TARTRATE 25 MG TAB PO SCH (10:46)
[2024-11-22] MEDS: PANTOPRAZOLE 40 MG/10 ML VIAL IV SCH (12:48)
[2024-11-22] MEDS ORDERED: HYDROcodone/APAP 10-325MG 1 EACH TAB PEG/G-TUBE PRN (13:23)
[2024-11-22] MEDS ORDERED: ONDANSETRON ODT 8 MG TAB.RAPDIS PO PRN (13:23)
--- NOTE | 2024-11-22 13:59 | P.HPIM ---
History of Present Illness 74-year-old male came in after syncopal episode and patient still feeling dizzy patient is hypotensive in A-fib with rapid ventricular rate patient was on Cardizem which was subsequently discontinued because of hypotension patient is p resently rate controlled was a started on metoprolol, patient's metoprolol dose from home was increased from 25 to twice daily to 25 3 times a day. Patient is also bit hyponatremic secondary to hypovolemia. Patient does have history of congestive heart failure EF of around 45% was on diuretics at home on as-needed basis. Patient has history of neck cancer for which patient is on chemotherapy recently received chemotherapy since chemo patient has been getting progressively weak. REVIEW OF SYSTEMS: All other systems are negative except those mentioned in the HPI PHYSICAL EXAMINATION: GENERAL: The patient is alert and oriented x3, not in any acute distress. Well developed, well nourished. HEENT: Pupils are round and equally reacting to light. EOMI. No scleral icterus. No conjunctival pallor. Normocephalic, atraumatic. No pharyngeal erythema. No thyromegaly. CARDIOVASCULAR: S1 and S2 present. No murmurs, rubs, or gallops. PULMONARY: Chest is clear to auscultation, no wheezing or crackles. ABDOMEN: Soft, nontender, nondistended, normoactive bowel sounds. No palpable organomegaly. Patient has a PEG tube in place MUSCULOSKELETAL: No joint swelling or deformity. EXTREMITIES: No cyanosis, clubbing, or pedal edema. NEUROLOGICAL: Gross neurological examination did not reveal any focal deficits. SKIN: No rashes. Assessment and plan -Syncope secondary to hypovolemia hypotension and atrial fibrillation improved at this time -Atrial fibrillation persistent with rapid ventricular rate presently improved patient is rate controlled still in A-fib discontinued Cardizem was started back on metoprolol with increased dose - Hypovolemic hyponatremia will continue to IV fluids for 1 more liter will repeat electrolytes tomorrow - Lactic acidosis secondary to hypovolemia - Troponin elevation secondary to type II non-ST elevation [place] - Congestive heart failure chronic systolic function EF of around 45% presently mildly hypervolemic. I will obtain a chest x-ray - Hyperlipidemia -Dysphagia secondary to head and neck cancer PEG tube feedings will be resumed Neck cancer recent resumed chemotherapy DVT prophylaxis: On anticoagulation which was resumed Past Medical History Past Medical History: Atrial Fibrillation, Cancer, Diabetes Mellitus, Hyperlipidemia, Myocardial Infarction ([place]) Additional Past Medical History / Comment(s): Spine CA C1/C2, CVA, Last Myocardial Infarction Date:: 2010 History of Any Multi-Drug Resistant Organisms: None Reported Past Surgical History: Joint Replacement Additional Past Surgical History / Comment(s): Peg tube, Past Anesthesia/Blood Transfusion Reactions: No Reported Reaction Past Psychological History: No Psychological Hx Reported Smoking Status: Never smoker Past Alcohol Use History: None Reported Past Drug Use History: None Reported Medications and Allergies Home Medications Medication Instructions Recorded Confirmed Type Atorvastatin [Lipitor] 20 mg PEG/G-TUBE HS 07/21/24 11/22/24 History HYDROcodone/APAP 10-325MG [[place] 1 tab PEG/G-TUBE QID PRN 07/21/24 11/22/24 [place] 10-325] Furosemide [Lasix] 40 mg PEG/G-TUBE DAILY PRN 10/12/24 11/22/24 History Ondansetron Odt [Zofran ODT] 8 mg PEG/G-TUBE Q8H PRN 10/12/24 11/22/24 History Apixaban [Eliquis] 5 mg PEG/G-TUBE BID #28 tab 10/20/24 11/22/24 Rx ALPRAZolam [Xanax] 0.5 mg PEG/G-TUBE DAILY PRN 11/22/24 11/22/24 History Insulin Aspart [NovoLOG Flexpen] See Protocol SQ ACHS 11/22/24 11/22/24 History Insulin Glargine,Hum.rec.anlog 12 units SQ BID 11/22/24 11/22/24 History [Lantus Solostar Pen] Metoprolol Tartrate [Lopressor] 25 mg PEG/G-TUBE BID 11/22/24 11/22/24 History Omeprazole [PriLOSEC] 20 mg PEG/G-TUBE DAILY 11/22/24 11/22/24 History Potassium Chloride 20 meq PEG/G-TUBE DAILY 11/22/24 11/22/24 History dexAMETHasone [Decadron] 4 mg PEG/G-TUBE BID 11/22/24 11/22/24 History Allergies Allergy/AdvReac Type Severity Reaction Status Date / Time Mushroom Allergy Unknown Verified 11/22/24 09:54 mushroom Allergy Unknown Verified 11/22/24 09:54 Physical Exam Vitals: Vital Signs Temp Pulse Pulse Resp BP BP Pulse Ox 11/22/24 12:00 98.6 F 85 17 94/63 95 11/22/24 08:00 98.2 F 85 17 99/67 95 11/22/24 05:17 84 17 102/55 97 11/22/24 00:00 86 17 118/69 92 L 11/21/24 21:23 93 17 149/65 94 L 11/21/24 20:50 112 H 11/21/24 19:22 98.8 F 116 H 18 132/72 96 Intake and Output 11/21/24 11/22/24 11/22/24 22:59 06:59 14:59 Other: Weight 77.111 kg Results CBC & Chem 7: 11/22/24 02:52 11/22/24 02:52 Labs: Abnormal Lab Results - Last 24 Hours (Table) 11/21/24 11/21/24 11/21/24 Range/Units 19:55 19:55 19:55 WBC 3.02 L (4.50-10.00) 10*3/uL RBC 2.73 L (4.40-5.60) 10*6/uL Hgb 9.8 L (13.0-17.0) g/dL Hct 27.6 L (39.6-50.0) % MCV 101.1 H (80.0-97.0) fL MCH 35.9 H (27.0-32.0) pg Plt Count 105 L D (140-440) 10*3/uL Immature Gran # 0.13 H (0.00-0.04) 10*3/uL Lymphocytes # (Manual) 0.82 L (1.0-4.8) k/uL Metamyelocytes # (Man) 0.03 H (0) k/uL Myelocytes # (Manual) 0.09 H (0) k/uL D-Dimer 0.66 H (<0.60) mg/L FEU Sodium 128 L (137-145) mmol/L Chloride 95 L (98-107) mmol/L Creatinine 0.43 L (0.66-1.25) mg/dL Glucose 101 H (74-99) mg/dL Plasma Lactic Acid Jarod (0.7-2.0) mmol/L Calcium 7.8 L (8.4-10.2) mg/dL Magnesium 1.4 L (1.6-2.3) mg/dL Troponin I (0.000-0.034) ng/mL Total Protein 5.0 L (6.3-8.2) g/dL Albumin 2.8 L (3.5-5.0) g/dL 11/21/24 11/21/24 11/21/24 Range/Units 19:55 19:55 23:17 WBC (4.50-10.00) 10*3/uL RBC (4.40-5.60) 10*6/uL Hgb (13.0-17.0) g/dL Hct (39.6-50.0) % MCV (80.0-97.0) fL MCH (27.0-32.0) pg Plt Count (140-440) 10*3/uL Immature Gran # (0.00-0.04) 10*3/uL Lymphocytes # (Manual) (1.0-4.8) k/uL Metamyelocytes # (Man) (0) k/uL Myelocytes # (Manual) (0) k/uL D-Dimer (<0.60) mg/L FEU Sodium (137-145) mmol/L Chloride (98-107) mmol/L Creatinine (0.66-1.25) mg/dL Glucose (74-99) mg/dL Plasma Lactic Acid Jarod 3.3 H* (0.7-2.0) mmol/L Calcium (8.4-10.2) mg/dL Magnesium (1.6-2.3) mg/dL Troponin I 0.037 H* 0.042 H* (0.000-0.034) ng/mL Total Protein (6.3-8.2) g/dL Albumin (3.5-5.0) g/dL 11/21/24 11/22/24 11/22/24 Range/Units 23:17 02:52 02:52 WBC 4.32 L (4.50-10.00) 10*3/uL RBC 2.80 L (4.40-5.60) 10*6/uL Hgb 10.0 L (13.0-17.0) g/dL Hct 28.1 L (39.6-50.0) % MCV 100.4 H (80.0-97.0) fL MCH 35.7 H (27.0-32.0) pg Plt Count 92 L (140-440) 10*3/uL Immature Gran # 0.05 H (0.00-0.04) 10*3/uL Lymphocytes # (Manual) 0.35 L (1.0-4.8) k/uL Metamyelocytes # (Man) (0) k/uL Myelocytes # (Manual) (0) k/uL D-Dimer (<0.60) mg/L FEU Sodium (137-145) mmol/L Chloride (98-107) mmol/L Creatinine (0.66-1.25) mg/dL Glucose (74-99) mg/dL Plasma Lactic Acid Jarod 2.1 H* (0.7-2.0) mmol/L Calcium (8.4-10.2) mg/dL Magnesium (1.6-2.3) mg/dL Troponin I 0.037 H* (0.000-0.034) ng/mL Total Protein (6.3-8.2) g/dL Albumin (3.5-5.0) g/dL 11/22/24 Range/Units 02:52 WBC (4.50-10.00) 10*3/uL RBC (4.40-5.60) 10*6/uL Hgb (13.0-17.0) g/dL Hct (39.6-50.0) % MCV (80.0-97.0) fL MCH (27.0-32.0) pg Plt Count (140-440) 10*3/uL Immature Gran # (0.00-0.04) 10*3/uL Lymphocytes # (Manual) (1.0-4.8) k/uL Metamyelocytes # (Man) (0) k/uL Myelocytes # (Manual) (0) k/uL D-Dimer (<0.60) mg/L FEU Sodium 129 L (137-145) mmol/L Chloride (98-107) mmol/L Creatinine 0.42 L (0.66-1.25) mg/dL Glucose (74-99) mg/dL Plasma Lactic Acid Jarod (0.7-2.0) mmol/L Calcium 7.9 L (8.4-10.2) mg/dL Magnesium (1.6-2.3) mg/dL Troponin I (0.000-0.034) ng/mL Total Protein 4.8 L (6.3-8.2) g/dL Albumin 2.6 L (3.5-5.0) g/dL
--- NOTE | 2024-11-22 15:11 | XR ---
EXAMINATION TYPE: XR chest 2V DATE OF EXAM: 11/22/2024 3:02 PM COMPARISON: Chest radiographs from 10/12/2024 CLINICAL INDICATION: Male, 74 years old with history of CHF; [facility] TECHNIQUE: XR chest 2V Frontal and lateral views of the chest. FINDINGS: Lungs/Pleura: Regular lobe airspace opacities and to lesser extent left lower lobe. There is no evide nce of pleural effusion, focal consolidation, or pneumothorax. Pulmonary vascularity: Unremarkable. Heart/mediastinum: Cardiomediastinal silhouette is unremarkable. Musculoskeletal: No acute osseous pathology. IMPRESSION: 1. Right lower lobe airspace opacities correlate for pneumonia. 2. Correlation with serum BNP to exclude a component of congestive heart failure. [facility], , 11/22/2024 3:08 PM
[2024-11-22 17:19] LABS: Glucose,Whole Blood 103 mg/dL (70-110)
[2024-11-22] MEDS: INSULIN LISPRO (HumaLOG) 100 UNIT/ML 10 mL VL SQ SCH (17:20)
[2024-11-22] MEDS: dexAMETHasone 4 MG TAB PEG/G-TUBE SCH (20:40)
[2024-11-22] MEDS: ATORVASTATIN 20 MG TAB PEG/G-TUBE SCH (20:40)
[2024-11-22] MEDS: APIXABAN 5 MG TAB PEG/G-TUBE SCH (20:40)
[2024-11-22 20:43] LABS: Glucose,Whole Blood 99 mg/dL (70-110)
[2024-11-22] MEDS: INSULIN GLARGINE (LANTUS) 100 UNIT/ML SYR SQ SCH (21:54)
[2024-11-23 06:00] LABS: Glucose,Whole Blood 252 mg/dL (70-110)
[2024-11-23 07:23] LABS: African American GFR (CKD) >90 (>60 ml/min/1.73 sqM); Anion Gap 5 mmol/L; Blood Urea Nitrogen 20 mg/dL (9-20); Calcium 8.1 mg/dL (8.4-10.2); Carbon Dioxide 25 mmol/L (22-30); Chloride 98 mmol/L (98-107); Glucose 229 mg/dL (74-99); Magnesium 1.8 mg/dL (1.6-2.3); Non-African American GFR(CKD) >90 (>60 ml/min/1.73 sqM); Potassium 4.1 mmol/L (3.5-5.1); Sodium 128 mmol/L (137-145)
[2024-11-23] MEDS ORDERED: NON FORMULARY DRUG (Omeprazole 20 MG Capsule.Dr) PEG/G-TUBE SCH (09:00)
[2024-11-23 11:35] VITALS: BMI 23.3
[2024-11-23 11:37] LABS: Glucose,Whole Blood 138 mg/dL (70-110)
--- NOTE | 2024-11-23 12:34 | P.PN ---
Subjective HISTORY OF PRESENT ILLNESS: This is a 74-year-old male with a past medical history significant for neck cancer status post chemotherapy, atrial fibrillation, congestive heart failure, hyperlipidemia, and PEG tube insertion. 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 We have been asked to see the patient in consultation for A-fib with RVR. Patient examined at the bedside in the emergency room. Patient presented to the emergency room with chief complaint of feeling dizzy. According to the patient he did not lose consciousness. He continues to report weakness this morning. He denies any chest pain or shortness of breath. Patient was found to be in A-fib with RVR and was started on IV Cardizem. He remains in atrial fibrillation with a heart rate in the 70s at the time of examination DIAGNOSTICS: - EKG reveals A-fib with RVR - Laboratory data: WBC 4.32. Hemoglobin 10.0. Platelet count 92. Sodium 129. Potassium 4.2. BUN 15. Creatinine 0.42. Lactic acid 3.3. Repeat 1.8. Troponin 0.037. 0.042. 0.037. proBNP 1620. - Current home cardiac medications include Eliquis 5 mg twice a day, metoprolol tartrate 25 mg twice a day, Lipitor 20 mg at night, Lasix 40 mg daily as needed - Most recent echocardiogram obtained in July 2024 revealing ejection fraction 45 to 50%, mild MR, mild TR - Cardiac catheterization history: Unknown 11/23/2024 Patient examined this morning at bedside. Patient currently denies chest pain or pressure. He denies shortness of breath. Telemetry revealed atrial fibrillation with a heart rate in the 70s. PHYSICAL EXAM: VITAL SIGNS: Reviewed. GENERAL: Well-developed in no acute distress. HEENT: Head is normocephalic. Pupils are equal, round. Sclerae anicteric. Mucous membranes of the mouth are moist. Neck supple. No JVD or thyromegaly LUNGS: Respirations even and unlabored. Lungs essentially clear to auscultation bilaterally. HEART: Irregular rate and rhythm. S1 and S2 heard. ABDOMEN: Soft. Nondistended. Nontender. EXTREMITIES: Normal range of motion. No clubbing or cyanosis. Peripheral pulses intact. No lower extremity edema NEUROLOGIC: Awake and alert. ASSESSMENT: Presyncope Hyponatremia Elevated lactic acid, resolved Persistent atrial fibrillation with RVR Elevated troponin, flat, type II [place] secondary to oxygen supply/demand mismatch History of neck cancer status post chemotherapy Chronic heart failure with mildly reduced EF, 45%, currently euvolemic Hyperlipidemia History of PEG tube insertion Thrombocytopenia PLAN: No need to repeat echocardiogram as this was performed in July 2024 Continue Eliquis, Lipitor, metoprolol Patient is stable from a cardiac standpoint with no further inpatient recommendations We will sign off. Please reconsult if needed. Nurse practitioner note has been reviewed by physician. Signing provider agrees with the documented findings, assessment, and plan of care documented by DANCE TEACHER as a scribe. Objective - Vital Signs Vital signs: Vital Signs Temp 97.8 F 11/23/24 08:43 Pulse 83 11/23/24 12:27 Resp 18 11/23/24 12:27 BP 126/87 11/23/24 12:27 Pulse Ox 98 11/23/24 12:27 FiO2 Intake & Output 11/22/24 11/23/24 11/23/24 18:59 06:59 18:59 Intake Total 1440 Balance 1440 Weight 78 kg 78 kg Intake: Tube Feeding 1440 Other: Voiding Method External Catheter External Catheter - Labs CBC & Chem 7: 11/22/24 02:52 11/23/24 05:56 Labs: Abnormal Lab Results - Last 24 Hours (Table) 11/23/24 11/23/24 11/23/24 Range/Units 05:56 05:59 11:36 Sodium 128 L (137-145) mmol/L Creatinine 0.41 L (0.66-1.25) mg/dL Glucose 229 H (74-99) mg/dL POC Glucose (mg/dL) 252 H 138 H (70-110) mg/dL Calcium 8.1 L (8.4-10.2) mg/dL
[2024-11-23 16:49] LABS: Glucose,Whole Blood 298 mg/dL (70-110)
[2024-11-23 20:01] LABS: Glucose,Whole Blood 325 mg/dL (70-110)
--- NOTE | 2024-11-23 22:14 | P.PN ---
Subjective Progress Note Date: 11/23/24 74-year-old male came in after syncopal episode and patient still feeling dizzy patient is hypotensive in A-fib with rapid ventricular rate patient was on Cardizem which was subsequently discontinued because of hypotension patient is presently rate controlled was a started on metoprolol, patient's metoprolol dose from home was increased from 25 to twice daily to 25 3 times a day. Patient is also bit hyponatremic secondary to hypovolemia. Patient does have history of congestive heart failure EF of around 45% was on diuretics at home on as-needed basis. Patient has history of neck cancer for which patient is on chemotherapy recently received chemotherapy since chemo patient has been getting progre ssively weak. 11/23/2024 Patient is evaluated today in follow up on the cardiac unit. He is resting in bed comfortably. He feels extremely weak and concerned as he has not gotten out of bed since admission. PT consult pending. 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 His chest xray yesterday reveals right lower lobe airspace opacities correlate for pneumonia. Correlate with serum BNP to exclude component of CHF. REVIEW OF SYSTEMS: CONSTITUTIONAL: No fever, no malaise, no fatigue. HEENT: No recent visual problems or hearing problems. Denied any sore throat. CARDIOVASCULAR: No chest pain, orthopnea, PND, no palpitations, no syncope. PULMONARY: No shortness of breath, no cough, no hemoptysis. GASTROINTESTINAL: No diarrhea, no nausea, no vomiting, no abdominal pain. NEUROLOGICAL: No headaches, no weakness, no numbness. PHYSICAL EXAMINATION: GENERAL: The patient is alert and oriented x3, not in any acute distress. Well developed, well nourished. HEENT: Pupils are round and equally reacting to light. EOMI. No scleral icterus. No conjunctival pallor. Normocephalic, atraumatic. No pharyngeal erythema. No thyromegaly. CARDIOVASCULAR: S1 and S2 present. No murmurs, rubs, or gallops. PULMONARY: Chest is clear to auscultation, no wheezing or crackles. ABDOMEN: Soft, nontender, nondistended, normoactive bowel sounds. No palpable organomegaly. Patient has a PEG tube in place MUSCULOSKELETAL: No joint swelling or deformity. EXTREMITIES: No cyanosis, clubbing, or pedal edema. NEUROLOGICAL: Gross neurological examination did not reveal any focal deficits. SKIN: No rashes. Assessment and plan - Syncope secondary to hypovolemia hypotension and atrial fibrillation improved at this time - Atrial fibrillation persistent with rapid ventricular rate presently improved patient is rate controlled still in A-fib discontinued Cardizem was started back on metoprolol with increased dose - Hypovolemic hyponatremia received IV fluids and currently monitored off fluids - Lactic acidosis secondary to hypovolemia - Troponin elevation secondary to type II non-ST elevation [place] - Congestive heart failure chronic systolic function EF of around 45% euvolemic, cardiology following - Hyperlipidemia - Dysphagia secondary to head and neck cancer PEG tube feedings will be resumed - Neck cancer recently started on radiation therapy DVT prophylaxis: On anticoagulation which was resumed Full Code Plan Patient is monitored off fluids PEG Tube feedings to be started today PT/OT consultation Continue metoprolol Continue cardiac telemetry Cardiology Following Monitor electrolytes and renal function AM labs The impression and plan of care has been dictated by Lenka Spear, Nurse Practitioner as directed. Dr. Lisbeth MD I have performed a history and physical examination and medical decision making of this patient, discussed the same with the dictator, and agree with the dictators assessment and plan as written, documented as a scribe. Based on total visit time, I have performed more than 50% of this visit. Objective - Vital Signs Vital signs: Vital Signs Temp 97.8 F 11/23/24 08:43 Pulse 83 11/23/24 12:27 Resp 18 11/23/24 12:27 BP 126/87 11/23/24 12:27 Pulse Ox 98 11/23/24 12:27 FiO2 Intake & Output 11/22/24 11/23/24 11/23/24 18:59 06:59 18:59 Intake Total 1440 Balance 1440 Weight 78 kg 78 kg Intake: Tube Feeding 1440 Other: Voiding Method External Catheter External Catheter - Labs CBC & Chem 7: 11/22/24 02:52 11/23/24 05:56 Labs: Abnormal Lab Results - Last 24 Hours (Table) 11/23/24 11/23/24 11/23/24 Range/Units 05:56 05:59 11:36 Sodium 128 L (137-145) mmol/L Creatinine 0.41 L (0.66-1.25) mg/dL Glucose 229 H (74-99) mg/dL POC Glucose (mg/dL) 252 H 138 H (70-110) mg/dL Calcium 8.1 L (8.4-10.2) mg/dL
[2024-11-24 06:16] LABS: Glucose,Whole Blood 359 mg/dL (70-110)
[2024-11-24 07:11] LABS: African American GFR (CKD) >90 (>60 ml/min/1.73 sqM); Anion Gap 7 mmol/L; Blood Urea Nitrogen 30 mg/dL (9-20); Carbon Dioxide 24 mmol/L (22-30); Chloride 100 mmol/L (98-107); Glucose 334 mg/dL (74-99); Magnesium 1.9 mg/dL (1.6-2.3); Non-African American GFR(CKD) >90 (>60 ml/min/1.73 sqM); Potassium 4.1 mmol/L (3.5-5.1); Sodium 131 mmol/L (137-145)
[2024-11-24 07:55] LABS: HCT 26.5 % (39.6-50.0); HGB 9.1 g/dL (13.0-17.0); MCH 34.5 pg (27.0-32.0); MCHC 34.3 g/dL (32.0-37.0); MCV 100.4 fL (80.0-97.0); Mean Platelet Volume 10.9 fL (9.5-12.2); RBC 2.64 10*6/uL (4.40-5.60); WBC 3.51 10*3/uL (4.50-10.00)
[2024-11-24] MEDS: ALPRAZolam 0.5 MG TAB PEG/G-TUBE PRN (08:16)
[2024-11-24 08:18] LABS: Band Neutrophils % 1 %; Eosinophils # (M) 0.04 k/uL (0-0.7); Lymphocytes # (M) 0.35 k/uL (1.0-4.8); Monocytes # (M) 0.18 k/uL (0-1.0); Neutrophils # (M) 2.94 k/uL (1.3-7.7); Neutrophils % (M) 83 %; Nucleated Red Blood Cells 0 /100 WBC (0-0); Platelet Count 94 10*3/uL (140-440); Total Cells Counted 100
[2024-11-24 11:59] LABS: Glucose,Whole Blood 258 mg/dL (70-110)
[2024-11-24] MEDS: INSULIN GLARGINE (LANTUS) 100 UNIT/ML SYR SQ ONE (12:32)
--- NOTE | 2024-11-24 15:52 | P.PN ---
Subjective Progress Note Date: 11/24/24 74-year-old male came in after syncopal episode and patient still feeling dizzy patient is hypotensive in A-fib with rapid ventricular rate patient was on Cardizem which was subsequently discontinued because of hypotension patient is presently rate controlled was a started on metoprolol, patient's metoprolol dose from home was increased from 25 to twice daily to 25 3 times a day. Patient is also bit hyponatremic secondary to hypovolemia. Patient does have history of congestive heart failure EF of around 45% was on diuretics at home on as-needed basis. Patient has history of neck cancer for which patient is on chemotherapy recently received chemotherapy since chemo patient has been getting progre ssively weak. 11/23/2024 Patient is evaluated today in follow up on the cardiac unit. He is resting in bed comfortably. He feels extremely weak and concerned as he has not gotten out of bed since admission. PT consult pending. 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 His chest xray yesterday reveals right lower lobe airspace opacities correlate for pneumonia. Correlate with serum BNP to exclude component of CHF. 11/24/2024 Patient is evaluated in follow-up in the cardiac unit. Patient reports feeling overall improved no shortness of breath or chest pain. He is currently pending PT evaluation. Sodium is better at 131. He has been resumed on PEG tube feedings. He was cleared by cardiology should be able to be discharged home tomorrow. REVIEW OF SYSTEMS: CONSTITUTIONAL: No fever, no malaise, no fatigue. HEENT: No recent visual problems or hearing problems. Denied any sore throat. CARDIOVASCULAR: No chest pain, orthopnea, PND, no palpitations, no syncope. PULMONARY: No shortness of breath, no cough, no hemoptysis. GASTROINTESTINAL: No diarrhea, no nausea, no vomiting, no abdominal pain. NEUROLOGICAL: No headaches, no weakness, no numbness. PHYSICAL EXAMINATION: GENERAL: The patient is alert and oriented x3, not in any acute distress. Well developed, well nourished. HEENT: Pupils are round and equally reacting to light. EOMI. No scleral icterus. No conjunctival pallor. Normocephalic, atraumatic. No pharyngeal erythema. No thyromegaly. CARDIOVASCULAR: S1 and S2 present. No murmurs, rubs, or gallops. PULMONARY: Chest is clear to auscultation, no wheezing or crackles. ABDOMEN: Soft, nontender, nondistended, normoactive bowel sounds. No palpable organomegaly. Patient has a PEG tube in place MUSCULOSKELETAL: No joint swelling or deformity. EXTREMITIES: No cyanosis, clubbing, or pedal edema. NEUROLOGICAL: Gross neurological examination did not reveal any focal deficits. SKIN: No rashes. Assessment and plan - Syncope secondary to hypovolemia hypotension and atrial fibrillation improved at this time - Atrial fibrillation persistent with rapid ventricular rate presently improved patient is rate controlled still in A-fib discontinued Cardizem was started back on metoprolol with increased dose - Hypovolemic hyponatremia received IV fluids and currently monitored off fluids - Lactic acidosis secondary to hypovolemia - Troponin elevation secondary to type II non-ST elevation [place] - Congestive heart failure chronic systolic function EF of around 45% euvolemic, cardiology following - Hyperlipidemia - Dysphagia secondary to head and neck cancer PEG tube feedings will be resumed - Neck cancer recently started on radiation therapy DVT prophylaxis: On anticoagulation which was resumed Full Code Plan Patient is monitored off fluids PEG Tube feedings continue PT/OT consultation pending Continue metoprolol Continue cardiac telemetry Cardiology Cleared Monitor electrolytes and renal function AM labs D/C home in the next 24 hours The impression and plan of care has been dictated by Lekna Spear, Nurse Practitioner as directed. Dr. Lisbeth MD I have performed a history and physical examination and medical decision making of this patient, discussed the same with the dictator, and agree with the dictators assessment and plan as written, documented as a scribe. Based on total visit time, I have performed more than 50% of this visit. Objective - Vital Signs Vital signs: Vital Signs Temp 97.3 F L 11/24/24 08:00 Pulse 97 11/24/24 12:00 Resp 16 11/24/24 12:00 BP 117/79 11/24/24 12:00 Pulse Ox 97 11/24/24 12:00 FiO2 Intake & Output 11/23/24 11/24/24 11/24/24 18:59 06:59 18:59 Intake Total 1440 160 Output Total 1000 Balance 1440 -840 Weight 78 kg 77 kg Intake: Tube Feeding 1440 160 Output: Urine 1000 Other: Voiding Method External Catheter External Catheter External Catheter - Labs CBC & Chem 7: 11/24/24 06:30 11/24/24 06:30 Labs: Abnormal Lab Results - Last 24 Hours (Table) 11/23/24 11/23/24 11/24/24 Range/Units 16:47 20:00 06:15 WBC (4.50-10.00) 10*3/uL RBC (4.40-5.60) 10*6/uL Hgb (13.0-17.0) g/dL Hct (39.6-50.0) % MCV (80.0-97.0) fL MCH (27.0-32.0) pg Plt Count (140-440) 10*3/uL Immature Gran # (0.00-0.04) 10*3/uL Lymphocytes # (Manual) (1.0-4.8) k/uL Sodium (137-145) mmol/L BUN (9-20) mg/dL Creatinine (0.66-1.25) mg/dL Glucose (74-99) mg/dL POC Glucose (mg/dL) 298 H 325 H 359 H (70-110) mg/dL Calcium (8.4-10.2) mg/dL 11/24/24 11/24/24 11/24/24 Range/Units 06:30 06:30 11:56 WBC 3.51 L (4.50-10.00) 10*3/uL RBC 2.64 L (4.40-5.60) 10*6/uL Hgb 9.1 L (13.0-17.0) g/dL Hct 26.5 L (39.6-50.0) % MCV 100.4 H (80.0-97.0) fL MCH 34.5 H (27.0-32.0) pg Plt Count 94 L (140-440) 10*3/uL Immature Gran # 0.05 H (0.00-0.04) 10*3/uL Lymphocytes # (Manual) 0.35 L (1.0-4.8) k/uL Sodium 131 L (137-145) mmol/L BUN 30 H (9-20) mg/dL Creatinine 0.47 L (0.66-1.25) mg/dL Glucose 334 H (74-99) mg/dL POC Glucose (mg/dL) 258 H (70-110) mg/dL Calcium 8.0 L (8.4-10.2) mg/dL Assessment and Plan Time with Patient: Less than 30
[2024-11-24 18:06] LABS: Glucose,Whole Blood 317 mg/dL (70-110)
[2024-11-24 20:15] LABS: Glucose,Whole Blood 291 mg/dL (70-110)
[2024-11-25 06:10] LABS: Glucose,Whole Blood 360 mg/dL (70-110)
[2024-11-25 08:45] LABS: African American GFR (CKD) >90 (>60 ml/min/1.73 sqM); Anion Gap 8 mmol/L; Blood Urea Nitrogen 30 mg/dL (9-20); Calcium 8.2 mg/dL (8.4-10.2); Carbon Dioxide 25 mmol/L (22-30); Chloride 100 mmol/L (98-107); Glucose 312 mg/dL (74-99); Non-African American GFR(CKD) >90 (>60 ml/min/1.73 sqM); Potassium 4.2 mmol/L (3.5-5.1); Sodium 133 mmol/L (137-145)
[2024-11-25 11:01] VITALS: TEMP 97.5
[2024-11-25 11:37] LABS: Glucose,Whole Blood 321 mg/dL (70-110)
[2024-11-25 12:08] VITALS: BP 127/71; PULSE 66; RESP 16
--- NOTE | 2024-11-27 22:45 | P.DS ---
Providers Date of admission: 11/21/24 21:32 Attending physician: Nasra Youngblood Primary care physician: [facility] Course: Final Diagnosis - Syncope secondary to hypovolemia hypotension and atrial fibrillation improved at this time - Atrial fibrillation persistent with rapid ventricular rate presently improved patient is rate controlled still in A-fib discontinued Cardizem was started back on metoprolol with increased dose - Hypovolemic hyponatremia received IV fluids and currently monitored off fluids - Lactic acidosis secondary to hypovolemia - Troponin elevation secondary to type II non-ST elevation [place] - Congestive heart failure chronic systolic function EF of around 45% euvolemic, cardiology following - Hyperlipidemia - Dysphagia secondary to head and neck cancer PEG tube feedings will be resumed - Neck cancer recently started on radiation therapy Discharge Disposition Patient is stable for discharge home. Patient to continue home PEG tube feedings as prior. Continue radiation therapy as prior. Recommend to hold lasix on discharge until follow up with family doctor and repeat labs. Repeat BMP 2 to 3 days to monitor sodium level. Total time taken in discharge planning greater than 35 minutes. Hospital Course This is a 74-year-old male came in after syncopal episode and patient still feeling dizzy. 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 Patient is hypotensive and found to be in A-fib with rapid ventricular rate; patient was started on Cardizem which was subsequently discontinued because of hypotension. His heart rate is now controlled. His home dose of metoprolol has been increased to three times daily. His sodium has been low and he was felt to by clinically dehydrated. Sodium was 128 on admission and currently up to 131. He also had elevated troponin levels and proBNP of 1620. He was evaluated by cardiology. He was continued on enteral feedings. Monitored and his sodium has improved. He has continued his course of radiation therapy while inpatient. He is no longer dizzy. He has been up ambulating. He was cleared for discharge home. REVIEW OF SYSTEMS: CONSTITUTIONAL: No fever, no malaise, no fatigue. HEENT: No recent visual problems or hearing problems. Denied any sore throat. CARDIOVASCULAR: No chest pain, orthopnea, PND, no palpitations, no syncope. PULMONARY: No shortness of breath, no cough, no hemoptysis. GASTROINTESTINAL: No diarrhea, no nausea, no vomiting, no abdominal pain. NEUROLOGICAL: No headaches, no weakness, no numbness. PHYSICAL EXAMINATION: GENERAL: The patient is alert and oriented x3, not in any acute distress. Well developed, well nourished. HEENT: Pupils are round and equally reacting to light. EOMI. No scleral icterus. No conjunctival pallor. Normocephalic, atraumatic. No pharyngeal erythema. No thyromegaly. CARDIOVASCULAR: S1 and S2 present. No murmurs, rubs, or gallops. PULMONARY: Chest is clear to auscultation, no wheezing or crackles. ABDOMEN: Soft, nontender, nondistended, normoactive bowel sounds. No palpable organomegaly. Patient has a PEG tube in place MUSCULOSKELETAL: No joint swelling or deformity. EXTREMITIES: No cyanosis, clubbing, or pedal edema. NEUROLOGICAL: Gross neurological examination did not reveal any focal deficits. SKIN: No rashes. Please see medication reconciliation for a list of current medications. Thank you for allowing us to participate in the care of this patient. The impression and plan of care has been dictated by Lenka Spear, Nurse Practitioner as directed. Dr. Lisbeth MD I have performed a history and physical examination and medical decision making of this patient, discussed the same with the dictator, and agree with the dictators assessment and plan as written, documented as a scribe. Based on total visit time, I have performed more than 50% of this visit. Patient Condition at Discharge: Fair Plan - Discharge Summary Discharge Rx Participant: Yes New Discharge Prescriptions: Continue HYDROcodone/APAP 10-325MG [[place] 10-325] 1 tab PEG/G-TUBE QID PRN PRN Reason: Pain Apixaban [Eliquis] 5 mg PEG/G-TUBE BID #28 tab Insulin Glargine,Hum.rec.anlog [Lantus Solostar Pen] 12 units SQ BID Atorvastatin [Lipitor] 20 mg PEG/G-TUBE HS Ondansetron Odt [Zofran ODT] 8 mg PEG/G-TUBE Q8H PRN PRN Reason: Nausea And Vomiting Omeprazole [PriLOSEC] 20 mg PEG/G-TUBE DAILY Insulin Aspart [NovoLOG Flexpen] See Protocol SQ ACHS ALPRAZolam [Xanax] 0.5 mg PEG/G-TUBE DAILY PRN PRN Reason: BEFORE RADIATION dexAMETHasone [Decadron] 4 mg PEG/G-TUBE BID Changed Metoprolol Tartrate [Lopressor] 25 mg PEG/G-TUBE BID #90 tab Discontinued Furosemide [Lasix] 40 mg PEG/G-TUBE DAILY PRN PRN Reason: Edema Potassium Chloride 20 meq PEG/G-TUBE DAILY Discharge Medication List Atorvastatin [Lipitor] 20 mg PEG/G-TUBE HS 07/21/24 [History] HYDROcodone/APAP 10-325MG [[place] 10-325] 1 tab PEG/G-TUBE QID PRN 07/21/24 [History] Ondansetron Odt [Zofran ODT] 8 mg PEG/G-TUBE Q8H PRN 10/12/24 [History] Apixaban [Eliquis] 5 mg PEG/G-TUBE BID #28 tab 10/20/24 [Rx] ALPRAZolam [Xanax] 0.5 mg PEG/G-TUBE DAILY PRN 11/22/24 [History] Insulin Aspart [NovoLOG Flexpen] See Protocol SQ ACHS 11/22/24 [History] Insulin Glargine,Hum.rec.anlog [Lantus Solostar Pen] 12 units SQ BID 11/22/24 [History] Omeprazole [PriLOSEC] 20 mg PEG/G-TUBE DAILY 11/22/24 [History] dexAMETHasone [Decadron] 4 mg PEG/G-TUBE BID 11/22/24 [History] Metoprolol Tartrate [Lopressor] 25 mg PEG/G-TUBE BID #90 tab 11/25/24 [Rx] Follow up Appointment(s)/Referral(s): Cm Cervantes MD [STAFF PHYSICIAN] - 1 Week (CALL AND MAKE JULIO CESAR! (Heart)) Boris Mcclendon DO [Primary Care Provider] - 1-2 days (CALL AND MAKE JULIO CESAR! (PCP)) Ambulatory/Diagnostic Orders: Basic Metabolic Panel [LAB.AMB] Time Frame: 3 Days, Location: None Selected Patient Instructions/Handouts: A-fib (Atrial Fibrillation) (DC), Syncope (DC) Activity/Diet/Wound Care/Special Instructions: Hold lasix on discharge Continue same PEG tube feedings as before Repeat labs 2 to 3 days Follow up with cardiology and PCP on discharge Continue scheduled radiation as before Discharge Disposition: HOME WITH HOME HEALTH SERVICES
--- NOTE | 2024-11-28 10:50 | CDI ---
Documentation Clarification Form Date: 11/28/2024 10:41:36 AM From: Maya Hernández Phone: Admit Date: 11/21/2024 09:32:00 PM Patient Name: Riki Gallagher Visit Number: [id number] Discharge Date: 11/25/2024 12:45:00 PM ATTENTION: The Clinical Documentation Specialists (CDI) and [facility] Coding Staff appreciate your assistance in clarifying documentation. Please respond to the clarification below the line at the bottom and electronically sign. The CDI & [facility] Coding staff will review the response and follow-up if needed. Please note: Queries are made part of the Legal Health Record. If you have any questions, please contact the author of this message via ITS. Doctor/Provider: Lenka Spear Thrombocytopenia is documented per Consult 11/22 and Progress Note 11/23. Additional clarification regarding the type of thrombocytopenia is requested. History/risk factors: 74yo M, syncoped/t hypovolemia,hypotension, persistent A Fib, lactic acidosis, NSTEMI II, CDHF, HLD, dysphagia w PEG, esophageal Cx on chemo/rad Clinical Indicators: Platelet count: 92 Treatment: monitored Please clarify the type of thrombocytopenia, if known: [ ] Secondary Thrombocytopenia [ ] Thrombocytopenia due to drugs [x ] Thrombocytopenia due to chemotherapy [ ] Other, please specify [ ] Unable to determine (Template Last Revised: August 2020) MTDD
== END 2024-11-25 12:45 | disposition home health service (06) | DRG 281 ==
LOC: EC 19:21 → 3SCARD 21:32
PROVIDERS: ADMIT Hospitalist; ATTEND Hospitalist
PROC: D90 Radiation Therapy, Ear, Nose, Mouth and Throat, Beam Radiation (ICD-10-PCS; principal; 2024-11-21)
DX: I48.19 Other persistent atrial fibrillation (principal); C15.9 Malignant neoplasm of esophagus, unspecified; I21.A1 Myocardial infarction type 2; E87.20 Acidosis, unspecified; E87.1 Hypo-osmolality and hyponatremia; I50.22 Chronic systolic (congestive) heart failure; D69.59 Other secondary thrombocytopenia; R13.10 Dysphagia, unspecified; E11.9 Type 2 diabetes mellitus without complications; Z79.4 Long term (current) use of insulin; Z93.1 Gastrostomy status; E86.1 Hypovolemia; E86.0 Dehydration; E78.5 Hyperlipidemia, unspecified; T45.1X5A Adverse effect of antineoplastic and immunosuppressive drugs, initial encounter; I95.89 Other hypotension; I25.2 Old myocardial infarction; Z79.01 Long term (current) use of anticoagulants; Z79.899 Other long term (current) drug therapy; Z79.52 Long term (current) use of systemic steroids; Z86.73 Personal history of transient ischemic attack (TIA), and cerebral infarction without residual deficits; Z92.21 Personal history of antineoplastic chemotherapy
CPT/HCPCS: 36415; 71046; 77386; 80048; 80053; 82607; 82746; 83605; 83735; 83880; 84100; 84484; 85025; 85379; 85610; 85730; 93005; 94760; 96361; 96365; 96375; 99291

== ENCOUNTER → 2024-11-29 | Outpatient (CLI) | payer MEDICARE ==
[2024-11-29 16:11] LABS: BUN/Creat Ratio 33.83 Ratio (12.00-20.00); Blood Urea Nitrogen 20.3 mg/dL (9.0-27.0); Calcium 8.2 mg/dL (8.7-10.3); Chloride 97 mmol/L (96-109); Glucose 327 mg/dL (70-110); Potassium 5.2 mmol/L (3.5-5.5); Sodium 131 mmol/L (135-145)
== END | disposition home or self-care (01) ==
LOC: LABWHC1 09:18
PROVIDERS: ATTEND Nurse Practitioner Family
DX: E87.1 Hypo-osmolality and hyponatremia (principal)
CPT/HCPCS: 36415; 80048

== ENCOUNTER 2024-12-17 14:34 | Inpatient (IN) | payer MEDICARE ==
--- NOTE | 2024-12-17 15:16 | ED ---
Nausea/Vomiting/Diarrhea HPI - General Chief complaint: Nausea/Vomiting/Diarrhea Stated complaint: Vomiting Time Seen by Provider: 12/17/24 14:56 Source: patient, family, RN notes reviewed Mode of arrival: ambulatory Limitations: no limitations - History of Present Illness Initial comments: This is a 74-year-old male who presents to the emergency department for nausea, vomiting, and weakness. Family states that they noticed him to be febrile for the last couple of days. This morning he started to have nausea and vomiting and they also noticed that his blood pressure was lower than usual. They did avoid giving him his blood pressure medication today as a result. He is still mildly nauseous. Reports generalized abdominal discomfort from all of the vomiting. Denies any changes in bowel or bladder habits. 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 He does also report coughing and congestion. Denies any chest pain or shortness of breath. MD complaint: nausea, vomiting - Related Data Home Medications Medication Instructions Recorded Confirmed Atorvastatin [Lipitor] 20 mg PEG/G-TUBE HS 07/21/24 11/22/24 HYDROcodone/APAP 10-325MG [[place] 1 tab PEG/G-TUBE QID PRN 07/21/24 11/22/24 10-325] Ondansetron Odt [Zofran ODT] 8 mg PEG/G-TUBE Q8H PRN 10/12/24 11/22/24 ALPRAZolam [Xanax] 0.5 mg PEG/G-TUBE DAILY PRN 11/22/24 11/22/24 Insulin Aspart [NovoLOG Flexpen] See Protocol SQ ACHS 11/22/24 11/22/24 Insulin Glargine,Hum.rec.anlog 12 units SQ BID 11/22/24 11/22/24 [Lantus Solostar Pen] Omeprazole [PriLOSEC] 20 mg PEG/G-TUBE DAILY 11/22/24 11/22/24 dexAMETHasone [Decadron] 4 mg PEG/G-TUBE BID 11/22/24 11/22/24 Previous Rx's Medication Instructions Recorded Apixaban [Eliquis] 5 mg PEG/G-TUBE BID #28 tab 10/20/24 Metoprolol Tartrate [Lopressor] 25 mg PEG/G-TUBE BID #90 tab 11/25/24 Allergies Allergy/AdvReac Type Severity Reaction Status Date / Time Mushroom Allergy Unknown Verified 12/17/24 14:45 mushroom Allergy Unknown Verified 12/17/24 14:45 Review of Systems ROS Statement: Those systems with pertinent positive or pertinent negative responses have been documented in the HPI. ROS Other: All systems not noted in ROS Statement are negative. Past Medical History Past Medical History: Atrial Fibrillation, Cancer, Diabetes Mellitus, Hyperlipidemia, Myocardial Infarction (CT) Additional Past Medical History / Comment(s): Spine CA C1/C2, CVA, Last Myocardial Infarction Date:: 2010 History of Any Multi-Drug Resistant Organisms: None Reported Past Surgical History: Joint Replacement Additional Past Surgical History / Comment(s): Peg tube, Past Anesthesia/Blood Transfusion Reactions: No Reported Reaction Past Psychological History: No Psychological Hx Reported Smoking Status: Never smoker Past Alcohol Use History: None Reported Past Drug Use History: None Reported - Past Family History Father Family Medical History: No Reported History Mother Family Medical History: No Reported History Brother(s) Additional Family Medical History / Comment(s): liver disease General Exam Limitations: no limitations General appearance: alert, in no apparent distress Head exam: Present: atraumatic, normocephalic, normal inspection Respiratory exam: Present: normal lung sounds bilaterally. Absent: respiratory distress, wheezes, rales, rhonchi, stridor Cardiovascular Exam: Present: tachycardia, irregular rhythm GI/Abdominal exam: Present: soft. Absent: distended, tenderness Neurological exam: Present: alert, oriented X3, CN II-XII intact Psychiatric exam: Present: normal affect, normal mood Skin exam: Present: warm, dry, intact, normal color. Absent: rash Course Vital Signs 12/17/24 12/17/24 12/17/24 14:42 15:15 15:30 Temperature 97.2 F L Pulse Rate 76 141 H 110 H Respiratory 18 21 19 Rate Blood Pressure 88/60 124/76 97/67 O2 Sat by Pulse 94 L 96 95 Oximetry 12/17/24 16:00 Temperature Pulse Rate 95 Respiratory 15 Rate Blood Pressure 100/60 O2 Sat by Pulse 100 Oximetry Procedures - Sepsis Sepsis Focused Exam #1 Time Sepsis Criteria Met: 16:55 Sepsis Focused Exam Date: 12/17/24 Sepsis Focused Exam Time: 18:15 Sepsis Focused Exam Complete: Yes Vital Signs & RN Notes Reviewed: Yes Capillary Refill: < 2 Seconds: Fingers, Toes Peripheral Pulses: Normal: Radial (R), Radial (L) Skin Color: Normal for Patient Respiratory Exam: normal lung sounds Cardiovascular Exam: regular rate, irregular rhythm Medical Decision Making - Medical Decision Making This is a 74-year-old male who presents to the emergency department for nausea and vomiting. Was pt. sent in by a medical professional or institution? @ -No Did you speak to anyone other than the patient for history? @ -No Did you review nursing and triage notes? @ -Yes, and I agree, it is accurate with regards to the patient's symptoms. Were old charts reviewed? @ -No Differential Diagnosis? @ -Differential Nausea and Vomiting: Gastroenteritis, cholecystitis, appendicitis, pancreatitis, migraine, benign positional vertigo, food borne illness, pyelonephritis, irritable bowel syndrome, influenza, Covid, GERD, incarcerated hernia, intestinal obstruction, this is not meant to be an all-inclusive list. EKG interpreted by me (3pts min.)? @ -EKG interpreted by me demonstrating the following: A-fib with RVR. Ventricular rate 141 bpm, QRS duration 72 ms, QTc 368 ms. X-rays interpreted by me (1pt min.)? @ -Chest x-ray obtained. My interpretation identifies bilateral lower lobe opacities. CT interpreted by me (1pt min.)? @ -Not obtained U/S interpreted by me (1pt. min.)? @ -Not obtained What testing was considered but not performed? (CT, X-rays, U/S, labs)? Why? @ -None What meds were considered but not given? Why? @ -None Did you discuss the management of the patient with other professionals? @ -Yes, Dr. Galdamez, who accepts the patient for admission. Did you reconcile home meds? @ -No Was smoking cessation discussed for >3mins.? @ -No Was critical care preformed (if so, how long)? @ -Yes, >35 minutes Were there social determinants of health that impacted care today? How? (Homelessness, low income, unemployed, alcoholism, drug addiction, transportation, low edu. Level, literacy, decrease access to med. care, prison, rehab)? @ -No Was there de-escalation of care discussed even if they declined? (Discuss DNR or withdrawal of care, Hospice)? @ -No What co-morbidities impacted this encounter? (DM, HTN, Smoking, COPD, CAD, Cancer, CVA, Hep., AIDS, mental health diagnosis, sleep apnea, morbid obesity)? @ -Oropharyngeal cancer, DM, A-fib Was patient admitted / discharged? @ -Admitted. Lab work demonstrates mild leukopenia with a WBC of 3.31. This is a somewhat recurrent finding for the patient. He also has hyponatremia with a sodium of 128, which has also been an issue for the patient in the past. Lactic acid elevated at 4.8. COVID, influenza, and RSV testing negative. Chest x-ray demonstrates hazy patchy airspace disease in the bilateral lower lungs. They advised correlation for pneumonia. Patient's BP was 88/60 on arrival. This did improve, but still remained somewhat soft. Patient also went into A- fib with RVR shortly after he arrived. He does have a history of A-fib. He was then started on a Cardizem drip. He remained in A-fib, however the rate was controlled. He did meet sepsis criteria based on the tachycardia and leukopenia with pneumonia as the source of infection. He was initially given 1 L of normal saline when he had arrived. Once SIRS criteria was met he was given an additional 1500 mL of lactated Ringer's per the 30-40 mL/kg fluid requirement. Blood culture obtained and he was started on the pneumonia protocol with c eftriaxone and azithromycin. Patient admitted to medicine for pneumonia, sepsis, A-fib with RVR, nausea/vomiting, and weakness. Case discussed with ED attending Dr. Wong. Undiagnosed new problem with uncertain prognosis? @ -None Drug Therapy requiring intensive monitoring for toxicity (Heparin, Nitro, Insulin, Cardizem)? @ -Cardizem Were any procedures done? @ -None Diagnosis/symptom? @ -Pneumonia, sepsis, A-fib with RVR, weakness Acute, or Chronic, or Acute on Chronic? @ -Acute Uncomplicated (without systemic symptoms) or Complicated (systemic symptoms)? @ -Complicated Side effects of treatment? @ -None Exacerbation, Progression, or Severe Exacerbation] @ -Not applicable Poses a threat to life or bodily function? @ -Yes, can lead to septic shock and - Lab Data Result diagrams: 12/17/24 15:35 12/17/24 15:35 Lab Results 12/17/24 12/17/2425 Range/Units 15:35 15:35 15:35 WBC 3.31 L (4.50-10.00) 10*3/uL RBC 2.82 L (4.40-5.60) 10*6/uL Hgb 10.1 L (13.0-17.0) g/dL Hct 28.7 L (39.6-50.0) % MCV 101.8 H (80.0-97.0) fL MCH 35.8 H (27.0-32.0) pg MCHC 35.2 (32.0-37.0) g/dL Plt Count 111 L (140-440) 10*3/uL MPV 10.5 (9.5-12.2) fL Immature Gran % (Auto) 0.6 % Neutrophils % (Manual) 70 % Band Neuts % (Manual) 2 % Lymphocytes % (Manual) 25 % Monocytes % (Manual) 2 % Eosinophils % (Manual) 1 % Metamyelocytes % 1 % Immature Gran # 0.02 (0.00-0.04) 10*3/uL Neutrophils # (Manual) 2.38 (1.3-7.7) k/uL Lymphocytes # (Manual) 0.83 L (1.0-4.8) k/uL Monocytes # (Manual) 0.07 (0-1.0) k/uL Eosinophils # (Manual) 0.03 (0-0.7) k/uL Metamyelocytes # (Man) 0.03 H (0) k/uL Nucleated RBCs 2 H (0-0) /100 WBC Manual Slide Review Performed PT (10.0-12.5) sec INR (<1.2) APTT (22.0-30.0) sec Sodium 128 L (137-145) mmol/L Potassium 4.6 (3.5-5.1) mmol/L Chloride 92 L (98-107) mmol/L Carbon Dioxide 26 (22-30) mmol/L Anion Gap 10 mmol/L BUN 29 H (9-20) mg/dL Creatinine 0.46 L (0.66-1.25) mg/dL Est GFR (CKD-EPI)AfAm >90 (>60 ml/min/1.73 sqM) Est GFR (CKD-EPI)NonAf >90 (>60 ml/min/1.73 sqM) Glucose 183 H (74-99) mg/dL Plasma Lactic Acid Jarod 4.8 H* (0.7-2.0) mmol/L Calcium 8.5 (8.4-10.2) mg/dL Magnesium 1.7 (1.6-2.3) mg/dL Total Bilirubin 1.9 H (0.2-1.3) mg/dL AST 24 (17-59) U/L ALT 23 (4-49) U/L Alkaline Phosphatase 79 (38-126) U/L NT-Pro-B Natriuret Pep 2140 pg/mL Total Protein 5.2 L (6.3-8.2) g/dL Albumin 3.0 L (3.5-5.0) g/dL Amylase 41 (30-110) U/L Lipase 43 (23-300) U/L Influenza Type A (PCR) (Not Detectd) Influenza Type B (PCR) (Not Detectd) RSV (PCR) (Not Detectd) SARS-CoV-2 (PCR) (Not Detectd) 12/17/24 12/17/24 Range/Units 15:35 15:50 WBC (4.50-10.00) 10*3/uL RBC (4.40-5.60) 10*6/uL Hgb (13.0-17.0) g/dL Hct (39.6-50.0) % MCV (80.0-97.0) fL MCH (27.0-32.0) pg MCHC (32.0-37.0) g/dL Plt Count (140-440) 10*3/uL MPV (9.5-12.2) fL Immature Gran % (Auto) % Neutrophils % (Manual) % Band Neuts % (Manual) % Lymphocytes % (Manual) % Monocytes % (Manual) % Eosinophils % (Manual) % Metamyelocytes % % Immature Gran # (0.00-0.04) 10*3/uL Neutrophils # (Manual) (1.3-7.7) k/uL Lymphocytes # (Manual) (1.0-4.8) k/uL Monocytes # (Manual) (0-1.0) k/uL Eosinophils # (Manual) (0-0.7) k/uL Metamyelocytes # (Man) (0) k/uL Nucleated RBCs (0-0) /100 WBC Manual Slide Review PT 12.2 (10.0-12.5) sec INR 1.1 (<1.2) APTT 23.4 (22.0-30.0) sec Sodium (137-145) mmol/L Potassium (3.5-5.1) mmol/L Chloride (98-107) mmol/L Carbon Dioxide (22-30) mmol/L Anion Gap mmol/L BUN (9-20) mg/dL Creatinine (0.66-1.25) mg/dL Est GFR (CKD-EPI)AfAm (>60 ml/min/1.73 sqM) Est GFR (CKD-EPI)NonAf (>60 ml/min/1.73 sqM) Glucose (74-99) mg/dL Plasma Lactic Acid Jarod (0.7-2.0) mmol/L Calcium (8.4-10.2) mg/dL Magnesium (1.6-2.3) mg/dL Total Bilirubin (0.2-1.3) mg/dL AST (17-59) U/L ALT (4-49) U/L Alkaline Phosphatase (38-126) U/L NT-Pro-B Natriuret Pep pg/mL Total Protein (6.3-8.2) g/dL Albumin (3.5-5.0) g/dL Amylase (30-110) U/L Lipase (23-300) U/L Influenza Type A (PCR) Not Detected (Not Detectd) Influenza Type B (PCR) Not Detected (Not Detectd) RSV (PCR) Not Detected (Not Detectd) SARS-CoV-2 (PCR) Not Detected (Not Detectd) - Radiology Data Radiology results: report reviewed, image reviewed Critical Care Time Critical Care Time: Yes Critical Care Time: >35 minutes Disposition Clinical Impression: Pneumonia, Atrial fibrillation with RVR, Nausea & vomiting, Hyponatremia, Sepsis Disposition: ADMITTED IP TO THIS HOSP
[2024-12-17] MEDS ORDERED: DILTIAZEM 5 MG/ML 5 ML VIAL IVP STA ×2 (15:21→15:22)
[2024-12-17] MEDS: FAMOTIDINE 20 MG/2 ML VIAL IV STA (15:29)
[2024-12-17] MEDS: ONDANSETRON 4 MG/2 ML VIAL IVP STA (15:29)
[2024-12-17] MEDS: SODIUM CHLORIDE 0.9% 1,000 ML IV ONE (15:29)
[2024-12-17 15:46] LABS: HCT 28.7 % (39.6-50.0); HGB 10.1 g/dL (13.0-17.0); MCH 35.8 pg (27.0-32.0); MCHC 35.2 g/dL (32.0-37.0); MCV 101.8 fL (80.0-97.0); Platelet Count 111 10*3/uL (140-440); RBC 2.82 10*6/uL (4.40-5.60); RDW 15.3 % (11.5-14.5); WBC 3.31 10*3/uL (4.50-10.00)
[2024-12-17] MEDS: DILTIAZEM 125 MG in DEXTROSE 5% IN WATER 100 ML IV SCH (15:49)
[2024-12-17] MEDS: DILTIAZEM 5 MG/ML 5 ML VIAL IVP STA (15:49)
[2024-12-17 16:02] LABS: ALT 23 U/L (4-49); AST 24 U/L (17-59); African American GFR (CKD) >90 (>60 ml/min/1.73 sqM); Albumin 3.0 g/dL (3.5-5.0); Alkaline Phosphatase 79 U/L (38-126); Amylase 41 U/L (30-110); Anion Gap 10 mmol/L; Blood Urea Nitrogen 29 mg/dL (9-20); Calcium 8.5 mg/dL (8.4-10.2); Carbon Dioxide 26 mmol/L (22-30); Chloride 92 mmol/L (98-107); Glucose 183 mg/dL (74-99); Lipase 43 U/L (23-300); Magnesium 1.7 mg/dL (1.6-2.3); Non-African American GFR(CKD) >90 (>60 ml/min/1.73 sqM); Potassium 4.6 mmol/L (3.5-5.1); Sodium 128 mmol/L (137-145); Total Protein 5.2 g/dL (6.3-8.2)
[2024-12-17 16:09] LABS: INR 1.1 (<1.2); Partial Thromboplastin Time 23.4 sec (22.0-30.0); Prothrombin Time 12.2 sec (10.0-12.5)
[2024-12-17 16:11] LABS: NT-Pro-B-Type Natriuretic Pept 2140 pg/mL
[2024-12-17 16:21] LABS: RSV Not Detected (Not Detectd)
[2024-12-17 16:34] LABS: Eosinophils # (M) 0.03 k/uL (0-0.7); Lymphocytes # (M) 0.83 k/uL (1.0-4.8); Metamyelocytes # (M) 0.03 k/uL (0); Monocytes # (M) 0.07 k/uL (0-1.0); Neutrophils # (M) 2.38 k/uL (1.3-7.7); Neutrophils % (M) 70 %; Total Cells Counted 200
--- NOTE | 2024-12-17 16:53 | XR ---
EXAMINATION TYPE: XR chest 2V DATE OF EXAM: 12/17/2024 4:36 PM CLINICAL INDICATION:Male, 74 years old with history of Cough, weakness; [facility] COMPARISON: Chest 11/22/2024 TECHNIQUE: XR chest 2V Frontal view of the chest. FINDINGS: Lungs/Pleura: Hazy and patchy airspace opacities are seen in the bilateral lower lungs. No pneumothor ax. Pulmonary vascularity: Unremarkable. Heart/mediastinum: Cardiomediastinal silhouette is unremarkable. Musculoskeletal: No acute osseous pathology. IMPRESSION: Hazy and patchy airspace disease in the bilateral lower lungs. Correlate for pneumonia. [facility], , 12/17/2024 4:51 PM
[2024-12-17] MEDS ORDERED: PNEUMONIA PROTOCOL UTILIZED 1 EACH MISC PO PRN (17:00)
[2024-12-17] MEDS: LACTATED RINGERS 1,000 ML IV SCH ×2 (17:24→20:32)
[2024-12-17] MEDS ORDERED: ONDANSETRON 4 MG/2 ML VIAL IVP PRN (17:26)
[2024-12-17] MEDS ORDERED: NALOXONE 0.4 MG/ML 1 ML VIAL IV PRN (17:26)
[2024-12-17] MEDS: AZITHROMYCIN 500 MG in SODIUM CHLORIDE 0.9% 250 ML IVPB STA (17:33)
[2024-12-17 18:47] LABS: Bilirubin,Urine Negative (Negative); Blood,Urine Negative (Negative); Color,Urine Yellow; Glucose,Urine (UA) 2+ (Negative); Ketones,Urine Trace (Negative); Leukocyte Esterase,Urine Negative (Negative); Nitrite,Urine Negative (Negative); PH, Urine 7.0 (5.0-8.0); Protein,Urine Trace (Negative); Specific Gravity,Urine 1.022 (1.001-1.035); Urobilinogen,Urine 3.0 mg/dL (<2.0)
--- NOTE | 2024-12-18 00:56 | P.HPIM ---
History of Present Illness H&P Date: 12/17/24 Chief Complaint: Patient reports feeling sick. Patient is a 74-year-old male with a history of stroke, heart attack, stents, diabetes, high blood pressure, and cholesterol. Patient presented with vomiting for a couple of days, accompanied by fevers and coughing. Patient also reported belly pain. Patient denies chest pain, trouble breathing, or being around sick individuals. Patient has oropharyngeal cancer and uses a PEG tube for feeding. Patient is currently experiencing atrial fibrillation with rapid ventricular response. Patient has a history of cardiac stents. Specific dates not provided. Patient denies smoking. No information provided about alcohol use or living situation. Medical history Patient has a history of: 1. Stroke 2. Heart attack 3. Diabetes 4. Hypertension 5. Hypercholesterolemia 6. Atrial fibrillation 7. Oropharyngeal cancer review of systems Pertinent positives as noted in HPI. All other systems were reviewed and are negative Constitutional: Patient reports feeling sick, with fevers. Respiratory: Patient reports coughing. Gastrointestinal: Patient reports vomiting for a couple of days and belly pain. Cardiovascular: Patient denies chest pain. Other systems: Not provided or denied. on exam Constitutional: No acute distress, conversant, pleasant General: Patient appears sick. Cardiovascular: Heart irregular, normal S1, S2, no murmurs. Radial pulses are positive and equal. Patient is warm to the touch. Respiratory: Rhonchous breathing throughout, clears up with some coughing, no wheezing. Neurological: Weakness over the left upper extremity compared to the right. 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 Bilateral legs are equal in strength. HEENT: Both pupils are equal, round, reactive to light. Palpable lymph nodes in the neck. Gastrointestinal: Patient has a PEG tube. Insertion site looks healthy. Extremities: No swelling in legs noted. Past Medical History Past Medical History: Atrial Fibrillation, Cancer, Diabetes Mellitus, Hyperlipidemia, [place] Infarction ([place]) Additional Past Medical History / Comment(s): Spine CA C1/C2, CVA, Last Myocardial Infarction Date:: 2010 History of Any Multi-Drug Resistant Organisms: None Reported Past Surgical History: Joint Replacement Additional Past Surgical History / Comment(s): Peg tube, Past Anesthesia/Blood Transfusion Reactions: No Reported Reaction Past Psychological History: No Psychological Hx Reported Smoking Status: Never smoker Past Alcohol Use History: None Reported Past Drug Use History: None Reported - Past Family History Father Family Medical History: No Reported History Mother Family Medical History: No Reported History Brother(s) Additional Family Medical History / Comment(s): liver disease Medications and Allergies Home Medications Medication Instructions Recorded Confirmed Type Atorvastatin [Lipitor] 20 mg PEG/G-TUBE HS 07/21/24 12/17/24 History HYDROcodone/APAP 10-325MG [[place] 1 tab PEG/G-TUBE QID PRN 07/21/24 12/17/24 History 10-325] Ondansetron Odt [Zofran ODT] 8 mg PEG/G-TUBE Q8H PRN 10/12/24 12/17/24 History Apixaban [Eliquis] 5 mg PEG/G-TUBE BID #28 tab 10/20/24 12/17/24 Rx ALPRAZolam [Xanax] 0.5 mg PEG/G-TUBE DAILY 11/22/24 12/17/24 History Insulin Aspart [NovoLOG Flexpen] See Protocol SQ ACHS PRN 11/22/24 12/17/24 History Insulin Glargine,Hum.rec.anlog 8 units SQ BID 11/22/24 12/17/24 History [Lantus Solostar Pen] Omeprazole [PriLOSEC] 20 mg PEG/G-TUBE DAILY 11/22/24 12/17/24 History Metoprolol Tartrate [Lopressor] 25 mg PEG/G-TUBE BID #90 tab 11/25/24 12/17/24 Rx Furosemide [Lasix] 40 mg PEG/G-TUBE DAILY PRN 12/17/24 12/17/24 History Potassium Chloride Oral Liquid 20 meq PO DAILY PRN 12/17/24 12/17/24 History Allergies Allergy/AdvReac Type Severity Reaction Status Date / Time Mushroom Allergy Unknown Verified 12/17/24 19:11 mushroom Allergy Unknown Verified 12/17/24 19:11 Physical Exam Vitals: Vital Signs Temp Pulse Resp BP Pulse Ox 12/17/24 22:00 123 H 18 124/85 99 12/17/24 20:32 87 18 106/39 12/17/24 16:00 95 15 100/60 100 12/17/24 15:30 110 H 19 97/67 95 12/17/24 15:15 141 H 21 124/76 96 12/17/24 14:42 97.2 F L 76 18 88/60 94 L Intake and Output 12/17/24 12/17/24 12/18/24 14:59 22:59 06:59 Intake Total 30.917 Balance 30.917 Intake: Intake, IV Titration 30.917 Amount Diltiazem 125 mg In 30.917 Dextrose 5% in Water 100 ml @ 5 MG/HR 5 mls/hr IV .Q24H [facility] Rx#:[id number] Other: Weight 80.739 kg Results CBC & Chem 7: 12/17/24 15:35 12/17/24 15:35 Labs: Abnormal Lab Results - Last 24 Hours (Table) 12/17/24 12/17/24 12/17/24 Range/Units 15:35 15:35 15:35 WBC 3.31 L (4.50-10.00) 10*3/uL RBC 2.82 L (4.40-5.60) 10*6/uL Hgb 10.1 L (13.0-17.0) g/dL Hct 28.7 L (39.6-50.0) % MCV 101.8 H (80.0-97.0) fL MCH 35.8 H (27.0-32.0) pg Plt Count 111 L (140-440) 10*3/uL Lymphocytes # (Manual) 0.83 L (1.0-4.8) k/uL Metamyelocytes # (Man) 0.03 H (0) k/uL Nucleated RBCs 2 H (0-0) /100 WBC Sodium 128 L (137-145) mmol/L Chloride 92 L (98-107) mmol/L BUN 29 H (9-20) mg/dL Creatinine 0.46 L (0.66-1.25) mg/dL Glucose 183 H (74-99) mg/dL Plasma Lactic Acid Jarod 4.8 H* (0.7-2.0) mmol/L Total Bilirubin 1.9 H (0.2-1.3) mg/dL Total Protein 5.2 L (6.3-8.2) g/dL Albumin 3.0 L (3.5-5.0) g/dL Urine Protein (Negative) Urine Glucose (UA) (Negative) Urine Ketones (Negative) 12/17/24 12/17/24 12/17/24 Range/Units 18:40 19:30 23:10 WBC (4.50-10.00) 10*3/uL RBC (4.40-5.60) 10*6/uL Hgb (13.0-17.0) g/dL Hct (39.6-50.0) % MCV (80.0-97.0) fL MCH (27.0-32.0) pg Plt Count (140-440) 10*3/uL Lymphocytes # (Manual) (1.0-4.8) k/uL Metamyelocytes # (Man) (0) k/uL Nucleated RBCs (0-0) /100 WBC Sodium (137-145) mmol/L Chloride (98-107) mmol/L BUN (9-20) mg/dL Creatinine (0.66-1.25) mg/dL Glucose (74-99) mg/dL Plasma Lactic Acid Jarod 4.4 H* 2.3 H* (0.7-2.0) mmol/L Total Bilirubin (0.2-1.3) mg/dL Total Protein (6.3-8.2) g/dL Albumin (3.5-5.0) g/dL Urine Protein Trace H (Negative) Urine Glucose (UA) 2+ H (Negative) Urine Ketones Trace H (Negative) Assessment and Plan Assessment: 1. Acute metabolic encephalopathy secondary to underlying infection Plan: Monitor mental status, treat underlying infection 2. Sepsis secondary to pneumonia with concerns for aspiration pneumonia Plan: IV antibiotics with Rocephin and azithromycin, follow up cultures (sputum, blood), follow up chest x-rays, continue breathing treatments around the clock 3. Hyponatremia, likely secondary to hypovolemia from repeated vomiting Plan: Continue IV fluids with lactated Ringer's at 125 cc/hr 4. Elevated bilirubin Plan: Monitor liver function tests 5. Leukopenia (WBC 3.3) and chronic anemia (Hgb 10) Plan: Monitor complete blood count, assess for causes of leukopenia 6. Atrial fibrillation with rapid ventricular response Plan: Continue home medications, continue Eliquis 7. Dehydration with lactic acidosis Plan: Continue hydration, monitor lactic acid levels 8. Chronic conditions (diabetes, hypertension) Plan: Resume home medications when possible 9. Oropharyngeal cancer with PEG tube Plan: Continue PEG tube feeding, outpatient management of cancer treatment Additional notes: - Patient is full code - DVT prophylaxis: On Eliquis for A-fib - Continue to monitor oxygen saturation, provide supplemental oxygen as needed Diagnostic tests Chest X-ray: Shows changes suggestive of pneumonia. Respiratory viral panel: Negative for COVID, influenza, and RSV. Labs: - White blood cell count: 3.3 (leukopenic) - Hemoglobin: 10 (chronic anemia) - Bilirubin: Slightly elevated - Liver enzymes: Otherwise unremarkable - Urinalysis: Unremarkable
--- NOTE | 2024-12-18 06:39 | XR ---
EXAMINATION TYPE: XR chest 2V DATE OF EXAM: 12/18/2024 5:58 AM COMPARISON: Multiple radiographs, with the most recent on 12/17/2024 TECHNIQUE: XR chest 2V Frontal and lateral views of the chest. CLINICAL INDICATION:Male, 74 years old with history of pneumonia; FINDINGS: Lungs/Pleura: No pleural effusion. No pneumothorax. Patchy bilateral lower lung airspace opacities re demonstrated. Pulmonary vascularity: Unremarkable. Heart/mediastinum: Cardiomediastinal silhouette is enlarged and stable. Musculoskeletal: No acute osseous pathology. IMPRESSION: Similar bilateral lower lung patchy airspace opacities concerning for pneumonia. [facility], , 12/18/2024 6:36 AM
[2024-12-18] MEDS: AZITHROMYCIN 500 MG TAB PO SCH (08:35)
[2024-12-18] MEDS: PANTOPRAZOLE 40 MG/10 ML VIAL IV SCH (08:35)
[2024-12-18] MEDS: METOPROLOL TARTRATE 25 MG TAB PEG/G-TUBE SCH (08:35)
[2024-12-18] MEDS: APIXABAN 5 MG TAB PEG/G-TUBE SCH (08:35)
[2024-12-18] MEDS: ALPRAZolam 0.5 MG TAB PEG/G-TUBE SCH (08:35)
[2024-12-18] MEDS ORDERED: NON FORMULARY DRUG (Omeprazole 20 MG Capsule.Dr) PEG/G-TUBE SCH (09:00)
[2024-12-18 12:02] LABS: HCT 23.1 % (39.6-50.0); MCH 36.1 pg (27.0-32.0); MCHC 34.2 g/dL (32.0-37.0); MCV 105.5 fL (80.0-97.0); RBC 2.19 10*6/uL (4.40-5.60); RDW 16.3 % (11.5-14.5); WBC 3.47 10*3/uL (4.50-10.00)
[2024-12-18 12:19] LABS: HGB 7.9 g/dL (13.0-17.0)
[2024-12-18 12:21] LABS: ALT 18 U/L (4-49); AST 23 U/L (17-59); African American GFR (CKD) >90 (>60 ml/min/1.73 sqM); Albumin 2.3 g/dL (3.5-5.0); Alkaline Phosphatase 54 U/L (38-126); Anion Gap 6 mmol/L; Blood Urea Nitrogen 17 mg/dL (9-20); Calcium 7.7 mg/dL (8.4-10.2); Carbon Dioxide 22 mmol/L (22-30); Chloride 99 mmol/L (98-107); Non-African American GFR(CKD) >90 (>60 ml/min/1.73 sqM); Potassium 4.2 mmol/L (3.5-5.1); Sodium 127 mmol/L (137-145); Total Protein 4.2 g/dL (6.3-8.2)
[2024-12-18 12:27] LABS: Glucose 49 mg/dL (74-99)
[2024-12-18 13:04] LABS: Platelet Count 91 10*3/uL (140-440)
[2024-12-18 13:34] LABS: Glucose,Whole Blood 142 mg/dL (70-110)
--- NOTE | 2024-12-18 16:46 | P.CRDCN ---
History of Present Illness Consult date: 12/18/24 Reason for Consult (text): Afib with RVR History of present illness: Dr. Madera's addendum Patient was seen and examined with the resident at bedside Patient with oropharyngeal cancer with G-tube feeding presented with severe nausea vomiting dehydration lactic imbalance and A-fib RVR with concerns of possible aspiration pneumonia Cardiology was consulted for A-fib RVR. Patient had somewhat similar presentation 1 month ago. At this time he is rate controlled and stable from cardiovascular standpoint. Patient is a 74-year-old male with history of significant oropharyngeal cancer status post chemotherapy, currently on radiation therapy, persistent A-fib on Eliquis, CHF, hyperlipidemia and PEG tube insertion. Patient is a poor historian. History obtained from review of documentation and medical consult note. Patient presents to the ER on 12/17/2024 with a complaint of nausea, vomiting, and weakness for the last 2 to 3 days. Patient also reports generalized abdominal discomfort with no episodes of bloody or tarry colored stools. Patient also endorsing mild productive cough since 1 week. Patient was admitted to the hospital with concerns for pneumonia. During hospital course patient had A-fib with RVR. [employer] service was thus consulted. Patient was initially started on IV Cardizem. His rate is now controlled currently at 87 bpm. Cardizem drip has been off since this afternoon. Currently on home Lopressor 25 mg twice daily through PEG tube. Patient was recently hospitalized in November 2024 for syncopal episode and hypotension and was found to be A-fib with RVR. Patient was treated with even oral beta-gagan and anticoagulation. Most recent echocardiogram was obtained in July 2024 revealing ejection fraction of 45 to 50% with mild MR and mild TR. Patient otherwise denies any chest pain, palpitation, numbness or weakness in upper or lower extremities. Cardiac medication include Lopressor, Lipitor, Eliquis and Lasix Pertinent labs: WBC 3.47, hemoglobin 7.9, sodium 127, potassium 4.2, BUN 70, creatinine 0.43, NT proBNP 20 140 Pertinent images: Chest x-ray shows bilateral diffuse opacities. EKG shows A-fib with ventricular rate of 89 bpm, QRS duration 96 ms, QTc 442 9- second. Nonspecific ST-T wave changes noted. Vitals: Heart rate 87 bpm, respiratory rate 18, blood pressure 93/62, oxygen saturation 97% on room air. Review of systems: Pertinent positives and negatives as discussed in HPI, a complete review of systems was performed and all other systems are negative. Physical examination: Vital signs reviewed General: non toxic, no distress Head: atraumatic, normocephalic, symmetric Eyes: EOMI, no lid lag, anicteric sclera, pupils equal round reactive to light ENT: Nose and ears atraumatic Neck: No cervical lymphadenopathy, trachea midline, supple Mouth: no lip lesion, mucus membranes moist Cardiovascular: Irregular rate and rhythm. S1 and S2 heard. Lungs: Decreased breath sounds bilaterally lower lobes. No use of accessory muscles. Abdominal: soft, mild diffuse tenderness, no rebound tenderness, no guarding, PEG tube insertion site is clean and intact Assessment: #A-fib with RVR, currently rate controlled on metoprolol #History of persistent A-fib #Severe sepsis likely secondary to aspiration pneumonia on antibiotics #Hypovolemic Hyponatremia in the setting of recent nausea and vomiting #Elevated lactic acidosis, resolved #Oropharyngeal cancer s/p chemotherapy and currently on radiation therapy #Pancytopenia secondary s/p chemotherapy and currently on radiation therapy Plan: Discontinue IV Cardizem since blood pressure is low and rate is controlled Continue with metoprolol tartrate 25 mg twice daily Continue with Eliquis 5 mg twice daily Hold Lasix in setting of dehydration and hypotension Obtain echocardiogram to assess cardiac structure Replete electrolytes as needed Antibiotics as per primary team Past Medical History Past Medical History: Atrial Fibrillation, Cancer, Diabetes Mellitus, Hyperlipidemia, Myocardial Infarction (NM) Additional Past Medical History / Comment(s): Spine CA C1/C2, CVA, Last Myocardial Infarction Date:: 2010 History of Any Multi-Drug Resistant Organisms: None Reported Past Surgical History: Joint Replacement Additional Past Surgical History / Comment(s): Peg tube, Past Anesthesia/Blood Transfusion Reactions: No Reported Reaction Past Psychological History: No Psychological Hx Reported Smoking Status: Never smoker Past Alcohol Use History: None Reported Past Drug Use History: None Reported - Past Family History Father Family Medical History: No Reported History Mother Family Medical History: No Reported History Brother(s) Additional Family Medical History / Comment(s): liver disease Medications and Allergies Home Medications Medication Instructions Recorded Confirmed Type Atorvastatin [Lipitor] 20 mg PEG/G-TUBE HS 07/21/24 12/17/24 History HYDROcodone/APAP 10-325MG [[place] 1 tab PEG/G-TUBE QID PRN 07/21/24 12/17/24 History 10-325] Ondansetron Odt [Zofran ODT] 8 mg PEG/G-TUBE Q8H PRN 10/12/24 12/17/24 History Apixaban [Eliquis] 5 mg PEG/G-TUBE BID #28 tab 10/20/24 12/17/24 Rx ALPRAZolam [Xanax] 0.5 mg PEG/G-TUBE DAILY 11/22/24 12/17/24 History Insulin Aspart [NovoLOG Flexpen] See Protocol SQ ACHS PRN 11/22/24 12/17/24 History Insulin Glargine,Hum.rec.anlog 8 units SQ BID 11/22/24 12/17/24 History [Lantus Solostar Pen] Omeprazole [PriLOSEC] 20 mg PEG/G-TUBE DAILY 11/22/24 12/17/24 History Metoprolol Tartrate [Lopressor] 25 mg PEG/G-TUBE BID #90 tab 11/25/24 12/17/24 Rx Furosemide [Lasix] 40 mg PEG/G-TUBE DAILY PRN 12/17/24 12/17/24 History Potassium Chloride Oral Liquid 20 meq PO DAILY PRN 12/17/24 12/17/24 History Allergies Allergy/AdvReac Type Severity Reaction Status Date / Time Mushroom Allergy Unknown Verified 12/17/24 19:11 mushroom Allergy Unknown Verified 12/17/24 19:11 Physical Exam Vitals: Vital Signs Temp Pulse Resp BP Pulse Ox 12/18/24 15:28 87 18 93/62 97 12/18/24 13:00 81 17 96/52 97 12/18/24 11:00 70 16 90/60 99 12/18/24 10:00 60 16 80/60 98 12/18/24 09:00 60 20 90/60 98 12/18/24 07:39 16 12/18/24 07:33 97.8 F 79 16 136/72 95 12/18/24 03:55 80 18 105/52 94 L 12/18/24 02:44 98.6 F 78 18 110/44 94 L 12/18/24 00:15 96 18 110/59 94 L 12/17/24 22:00 123 H 18 124/85 99 12/17/24 20:32 87 18 106/39 Intake and Output 12/18/24 12/18/24 12/18/24 06:59 14:59 22:59 Intake Total 1534.083 Output Total 800 Balance 734.083 Intake: Intake, IV Titration 94.083 Amount Diltiazem 125 mg In 94.083 Dextrose 5% in Water 100 ml @ 5 MG/HR 5 mls/hr IV .Q24H [facility] Rx#:[id number] Tube Feeding 1440 Output: Urine 800 Other: Weight 80.739 kg Results 12/18/24 11:00 12/18/24 11:00 Cardiac Enzymes 12/18/24 Range/Units 11:00 AST 23 (17-59) U/L CBC 12/18/24 Range/Units 11:00 WBC 3.47 L (4.50-10.00) 10*3/uL RBC 2.19 L (4.40-5.60) 10*6/uL Hgb 7.9 L D (13.0-17.0) g/dL Hct 23.1 L (39.6-50.0) % Plt Count 91 L (140-440) 10*3/uL Comprehensive Metabolic Panel 12/18/24 Range/Units 11:00 Sodium 127 L (137-145) mmol/L Potassium 4.2 (3.5-5.1) mmol/L Chloride 99 (98-107) mmol/L Carbon Dioxide 22 (22-30) mmol/L BUN 17 (9-20) mg/dL Creatinine 0.43 L (0.66-1.25) mg/dL Glucose 49 L* (74-99) mg/dL Calcium 7.7 L (8.4-10.2) mg/dL AST 23 (17-59) U/L ALT 18 (4-49) U/L Alkaline Phosphatase 54 (38-126) U/L Total Protein 4.2 L (6.3-8.2) g/dL Albumin 2.3 L (3.5-5.0) g/dL Current Medications Generic Name Dose Route Start Last Admin Trade Name Freq PRN Reason Stop Dose Admin Acetaminophen 650 mg 12/17/24 17:26 Acetaminophen Tab 325 Mg Tab PO Q6HR PRN Mild Pain or Fever > 100.5 Hydrocodone Bitart/Acetaminophen 1 each 12/17/24 17:26 Hydrocodone/Apap 5-325mg 1 Each Tab PO Q4HR PRN Moderate Pain (Scale 4 to 6) Alprazolam 0.5 mg 12/18/24 09:00 12/18/24 08:35 Alprazolam 0.5 Mg Tab PEG/G-TUBE 0.5 mg DAILY AJIT Administration Apixaban 5 mg 12/18/24 09:00 12/18/24 08:35 Apixaban 5 Mg Tab PEG/G-TUBE 5 mg BID AJIT Administration Protocol Atorvastatin Calcium 20 mg 12/18/24 21:00 Atorvastatin 20 Mg Tab PEG/G-TUBE HS AJIT Azithromycin 500 mg 12/18/24 09:00 12/18/24 08:35 Azithromycin 500 Mg Tab PO 12/19/24 09:01 500 mg DAILY AJIT Administration Protocol Diltiazem HCl 125 mg/ Dextrose 125 mls @ 5 mls/hr 12/17/24 15:30 12/18/24 16:02 /Water IV Not Given .Q24H AJIT Protocol 5 MG/HR Ceftriaxone Sodium 2 gm/ 50 mls @ 100 mls/hr 12/18/24 09:00 12/18/24 08:34 Sodium Chloride IVPB 12/21/24 09:29 100 mls/hr Q24HR AJIT Administration Protocol Lactated Ringer's 1,000 mls @ 125 mls/hr 12/17/24 17:30 12/18/24 16:32 Lactated Ringers IV 125 mls/hr .Q8H AJIT Administration Metoprolol Tartrate 25 mg 12/18/24 09:00 12/18/24 08:35 Metoprolol Tartrate 25 Mg Tab PEG/G-TUBE 25 mg BID AJIT Administration Miscellaneous Information 1 each 12/17/24 17:00 Pneumonia Protocol Utilized 1 Each Misc PO ONCE PRN Per Protocol Morphine Sulfate 4 mg 12/17/24 17:26 Morphine Sulfate 4 Mg/Ml Syringe IV Q4HR PRN Severe Pain (Scale 7 to 10) Naloxone HCl 0.2 mg 12/17/24 17:26 Naloxone 0.4 Mg/Ml 1 Ml Vial IV Q2M PRN Opioid Reversal Ondansetron HCl 4 mg 12/17/24 17:26 Ondansetron 4 Mg/2 Ml Vial IVP Q8HR PRN Nausea And Vomiting Pantoprazole Sodium 40 mg 12/18/24 09:00 12/18/24 08:35 Pantoprazole 40 Mg/10 Ml Vial IV 40 mg DAILY AJIT Administration Intake and Output 12/18/24 12/18/24 12/18/24 06:59 14:59 22:59 Intake Total 1534.083 Output Total 800 Balance 734.083 Intake: Intake, IV Titration 94.083 Amount Diltiazem 125 mg In 94.083 Dextrose 5% in Water 100 ml @ 5 MG/HR 5 mls/hr IV .Q24H [facility] Rx#:[id number] Tube Feeding 1440 Output: Urine 800 Other: Weight 80.739 kg Patient Weight 12/19/24 06:59 Weight 80.739 kg 12/18/24 11:00 12/18/24 11:00
--- NOTE | 2024-12-18 18:00 | P.PN ---
Subjective Progress Note Date: 12/18/24 Patient was seen and examined. at bedside. She reports Tmax 101F 2-3 days ago along with one episode of vomiting, wet cough and choking. Takes ice chips by mouth. Undergoing RT for head and neck CA. CBC and CMP significant for WBC 3.47, RBC 2.19, Hg 7.9, Hct 23.1, MCV 105.5, Plt 91, Na 127, Cr 0.43, glu 49, Ca 7.7, alb 2.3. General: no distress, appears at stated age, ill appearing Derm: warm, dry Head: atraumatic, normocephalic, symmetric Eyes: no lid lag, anicteric sclera Cardiovascular: S1S2 tachy, no murmur, no edema Lungs: Coarse breath sounds, no accessory muscle use Ext: no gross muscle atrophy, muscle strength muscle strength 5 out of 5 in all 4 extremities, no contractures Neuro: no FND Psych: Alert, oriented, appropriate affect Based on my assessment of this patient, this patient meets a high complexity level of care. Sepsis and acute hypoxic respiratory failure secondary to aspiration PNA: Stop Rocephin and Azithromycin and start Zosyn 3.75 g IV TID. Obtain BCx, Sputum Cx, Legionella Ag, Pro-rolando. Elevated HOB + Aspiration precautions. Cut LR from 125 to 75 cc/hr. Pulmonary consult. AFib with RVR: Cardiology consulted. Cardizem drip discontinued. Metoprolol 25 mg PEG BID. Eliquis 5 mg PEG BID. Macrocytic anemia: Obtain B12 and Folate. No signs of active bleeding. Repeat CBC in the AM. Transfuse if Hg < 7. Hypoglycemia: Hold home dose of insulin. Tube feeds resumed. POC glucose Q6H. Hypoglycemic precautions. Hyponatremia: Trial of IV fluids. Check urine + serum Osm + Bella. CAD: Lipitor 20 mg PEG QHS. Metoprolol and Eliquis as above. Systolic CHF: Not in acute exacerbation. Metoprolol as above. May benefit from ACEi + K sparing diuretic when improved. Head and neck CA with Pancytopenia: Consult Oncology. CODE STATUS: FULL CODE DVT Prophylaxis: Eliquis GI Prophylaxis: Protonix IV Designated medical POA if patient is not able to make medical decisions for themselves: . I have reviewed the following garden consultant notes: Cardiology. I have reviewed the results of the following tests: CBC, CMP. I have ordered the following tests: CBC, CMP, CXR in the AM. I have discussed the care of this patient with the following independent historian: RN. Taylor. I have independently interpreted the following test below: I have discussed the management of this patient with the following physician: Objective - Vital Signs Vital signs: Vital Signs Temp 97.8 F 12/18/24 07:33 Pulse 87 12/18/24 15:28 Resp 18 12/18/24 15:28 BP 93/62 12/18/24 15:28 Pulse Ox 97 12/18/24 15:28 FiO2 Intake & Output 12/17/24 12/18/24 12/18/24 18:59 06:59 18:59 Intake Total 30.917 1534.083 Output Total 800 Balance 30.917 734.083 Weight 80.739 kg 80.739 kg Intake: Intake, IV Titration 30.917 94.083 Amount Diltiazem 125 mg In 30.917 94.083 Dextrose 5% in Water 100 ml @ 5 MG/HR 5 mls/hr IV .Q24H [facility] Rx#:[id number] Tube Feeding 1440 Output: Urine 800 - Labs CBC & Chem 7: 12/18/24 11:00 12/18/24 11:00 Labs: Abnormal Lab Results - Last 24 Hours (Table) 12/17/24 12/17/24 12/17/24 Range/Units 18:40 19:30 23:10 WBC (4.50-10.00) 10*3/uL RBC (4.40-5.60) 10*6/uL Hgb (13.0-17.0) g/dL Hct (39.6-50.0) % MCV (80.0-97.0) fL MCH (27.0-32.0) pg Plt Count (140-440) 10*3/uL Sodium (137-145) mmol/L Creatinine (0.66-1.25) mg/dL Glucose (74-99) mg/dL POC Glucose (mg/dL) (70-110) mg/dL Plasma Lactic Acid Jarod 4.4 H* 2.3 H* (0.7-2.0) mmol/L Calcium (8.4-10.2) mg/dL Total Protein (6.3-8.2) g/dL Albumin (3.5-5.0) g/dL Urine Protein Trace H (Negative) Urine Glucose (UA) 2+ H (Negative) Urine Ketones Trace H (Negative) 12/18/24 12/18/24 12/18/24 Range/Units 11:00 11:00 13:32 WBC 3.47 L (4.50-10.00) 10*3/uL RBC 2.19 L (4.40-5.60) 10*6/uL Hgb 7.9 L D (13.0-17.0) g/dL Hct 23.1 L (39.6-50.0) % MCV 105.5 H (80.0-97.0) fL MCH 36.1 H (27.0-32.0) pg Plt Count 91 L (140-440) 10*3/uL Sodium 127 L (137-145) mmol/L Creatinine 0.43 L (0.66-1.25) mg/dL Glucose 49 L* (74-99) mg/dL POC Glucose (mg/dL) 142 H (70-110) mg/dL Plasma Lactic Acid Jarod (0.7-2.0) mmol/L Calcium 7.7 L (8.4-10.2) mg/dL Total Protein 4.2 L (6.3-8.2) g/dL Albumin 2.3 L (3.5-5.0) g/dL Urine Protein (Negative) Urine Glucose (UA) (Negative) Urine Ketones (Negative)
--- NOTE | 2024-12-18 18:22 | XR ---
EXAMINATION TYPE: XR chest 1V portable DATE OF EXAM: 12/18/2024 6:05 PM COMPARISON: Chest radiographs from 12/18/2024. CLINICAL INDICATION: Male, 74 years old with history of PNA; [facility] TECHNIQUE: XR chest 1V portable Frontal view of the chest. FINDINGS: Lungs/Pleura: Basilar airspace opacities project bilaterally. There is no evidence of pleural effusio n, focal consolidation, or pneumothorax. Pulmonary vascularity: Pulmonary vascular congestion. Heart/mediastinum: Cardiomediastinal silhouette is enlarged. Musculoskeletal: No acute osseous pathology. Other findings: None IMPRESSION: Bibasilar airspace opacities correlate for pneumonia versus pulmonary edema and congestive heart fail ure changes [facility], , 12/18/2024 6:19 PM
[2024-12-18 18:37] LABS: Glucose,Whole Blood 211 mg/dL (70-110)
[2024-12-18] MEDS: HYDROcodone/APAP 5-325MG 1 EACH TAB PO PRN (21:20)
[2024-12-18] MEDS: ATORVASTATIN 20 MG TAB PEG/G-TUBE SCH (21:21)
[2024-12-18] MEDS: MORPHINE SULFATE 4 MG/ML SYRINGE IV PRN (22:23)
[2024-12-18] MEDS: PIPERACILLIN-TAZOBACTAM 3.375 GM in SODIUM CHLORIDE 0.9% 100 ML IVPB SCH (23:34)
[2024-12-18 23:54] LABS: Glucose,Whole Blood 205 mg/dL (70-110)
--- NOTE | 2024-12-19 03:31 | P.CNPUL ---
History of Present Illness Consult date: 12/19/24 Requesting physician: Emmie Branch Reason for consult: pneumonia History of present illness: Patient is a 74-year-old male with past medical history significant for head/neck cancer diagnosed back in April,. 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 Previously on carbo/Taxol, subsequently on Keytruda. PET scan from June, demonstrating a 2.8 x 2.2 cm parapharyngeal mass. FDG avid left upper lobe pulmonary nodule. Since then, concerns for disease progression. MRI brain from Oct, 2024 showing a left pharyngeal mass larger than previous PET scan with extension through the jugular eason to the cerebellar pontine angle. With vasogenic edema in the adjacent cerebellum with some mass effect. Currently, undergoing radiation treatments. Also, takes oral Decadron. Chest CT angiogram from Oct, 2024 remarkable for increased size and number of pulmonary nodules. Largest nodule in the left upper lung measuring 2.1 cm. Additional multiple e nlarged mediastinal lymph nodes. Did have issues with swallowing and did have a PEG tube placed at an outside facility. He has had multiple hospitalizations related to related complications of his cancer and treatments. He follows with his established oncologist Dr. De Jesus. Additional past medical history including hyperlipidemia, diabetes, atrial fibrillation, heart failure. Echocardiogram from July, estimating left ventricular ejection fraction of 45 to 50%. Patient currently being evaluated on the oncology unit. He is a poor historian. Apparently, brought into the emergency department back on 12/17/2024 for nausea, vomiting, and generalized weakness. Also, family was reporting fevers at home. Concerns of sepsis. While in the ED, noted to be in atrial fibrillation with RVR, started on Cardizem infusion for rate control. Blood pressure was marginal and the patient was fluid resuscitated with a total of 2.5 L of LR. Chest x-ray remarkable for cardiomegaly, pulmonary vascular congestion, and bibasilar airspace opacities. NT proBNP 2140. CBC with a WBC count of 3.47, hemoglobin 7.9 g/dL, platelets 91,000. CMP: Sodium 127, potassium 4.2, chloride 99, serum bicarb 22, BUN 17, creatinine 0.43, glucose 205. Lactic was elevated at 4.8 is down to 1.7. Urinalysis unremarkable for infection. Viral screen negative for influenza A/B, RSV, COVID. Urine Legionella antigen negative. Started empirically on Zosyn previously. No recorded fevers while inpatient. No observed coughing. He is on room air. Does not appear in any respiratory distress. LR infusing at 75 mL/h. Cardizem has previously been discontinued. Most recent vital signs including a temperature of 97.4 F, heart rate 88 bpm, blood pressure 99/60 mmHg, nontachypneic, SpO2 recorded at 93% on room air. Review of Systems ROS unobtainable: due to mental status Past Medical History Past Medical History: Atrial Fibrillation, Cancer, Diabetes Mellitus, Hyperlipidemia, Myocardial Infarction (MT) Additional Past Medical History / Comment(s): Spine CA C1/C2, CVA, Last Myocardial Infarction Date:: 2010 History of Any Multi-Drug Resistant Organisms: None Reported Past Surgical History: Joint Replacement Additional Past Surgical History / Comment(s): Peg tube, Past Anesthesia/Blood Transfusion Reactions: No Reported Reaction Past Psychological History: No Psychological Hx Reported Smoking Status: Never smoker Past Alcohol Use History: None Reported Past Drug Use History: None Reported - Past Family History Father Family Medical History: No Reported History Mother Family Medical History: No Reported History Brother(s) Additional Family Medical History / Comment(s): liver disease Medications and Allergies Home Medications Medication Instructions Recorded Confirmed Type Atorvastatin [Lipitor] 20 mg PEG/G-TUBE HS 07/21/24 12/17/24 History HYDROcodone/APAP 10-325MG [[place] 1 tab PEG/G-TUBE QID PRN 07/21/24 12/17/24 History 10-325] Ondansetron Odt [Zofran ODT] 8 mg PEG/G-TUBE Q8H PRN 10/12/24 12/17/24 History Apixaban [Eliquis] 5 mg PEG/G-TUBE BID #28 tab 10/20/24 12/17/24 Rx ALPRAZolam [Xanax] 0.5 mg PEG/G-TUBE DAILY 11/22/24 12/17/24 History Insulin Aspart [NovoLOG Flexpen] See Protocol SQ ACHS PRN 11/22/24 12/17/24 History Insulin Glargine,Hum.rec.anlog 8 units SQ BID 11/22/24 12/17/24 History [Lantus Solostar Pen] Omeprazole [PriLOSEC] 20 mg PEG/G-TUBE DAILY 11/22/24 12/17/24 History Metoprolol Tartrate [Lopressor] 25 mg PEG/G-TUBE BID #90 tab 11/25/24 12/17/24 Rx Furosemide [Lasix] 40 mg PEG/G-TUBE DAILY PRN 12/17/24 12/17/24 History Potassium Chloride Oral Liquid 20 meq PO DAILY PRN 12/17/24 12/17/24 History Allergies Allergy/AdvReac Type Severity Reaction Status Date / Time Mushroom Allergy Unknown Verified 12/17/24 19:11 mushroom Allergy Unknown Verified 12/17/24 19:11 Physical Exam Vitals: Vital Signs Temp Pulse Pulse Resp BP BP Pulse Ox 12/18/24 21:49 99.1 F 96 18 93/58 94 L 12/18/24 21:41 98.6 F 97 18 126/85 95 12/18/24 21:37 98.6 F 97 18 126/85 95 12/18/24 18:00 94 18 108/58 94 L 12/18/24 15:28 87 18 93/62 97 12/18/24 13:00 81 17 96/52 97 12/18/24 11:00 70 16 90/60 99 12/18/24 10:00 60 16 80/60 98 12/18/24 09:00 60 20 90/60 98 12/18/24 07:39 16 12/18/24 07:33 97.8 F 79 16 136/72 95 12/18/24 03:55 80 18 105/52 94 L 12/18/24 02:44 98.6 F 78 18 110/44 94 L Intake and Output 12/18/24 12/18/24 12/19/24 14:59 22:59 06:59 Intake Total 1534.083 Output Total 800 Balance 734.083 Intake: Intake, IV Titration 94.083 Amount Diltiazem 125 mg In 94.083 Dextrose 5% in Water 100 ml @ 5 MG/HR 5 mls/hr IV .Q24H [facility] Rx#:[id number] Tube Feeding 1440 Output: Urine 800 Other: # Voids 1 Weight 80.739 kg GENERAL EXAM: Alert, 74-year-old male, nontoxic appearance, comfortable in no apparent distress. HEAD: Normocephalic and atraumatic EYES: Normal reaction of pupils, equal size. NOSE: Clear with pink turbinates. THROAT: No erythema or exudates. Dry mucous membranes. NECK: No masses, no JVD. CHEST: No chest wall deformity. LUNGS: Equal air entry with scattered rhonchi. No crackles, wheezing, focal dullness. On room air. No conversational dyspnea or accessory muscle use.. No observed coughing. CVS: S1 and S2 normal with no audible murmur, irregular rhythm. No extra heart sounds ABDOMEN: No hepatosplenomegaly, active bowel sounds, no guarding or rigidity. PEG tube noted. SPINE: No scoliosis or deformity SKIN: No rashes CENTRAL NERVOUS SYSTEM: Patient is alert, only oriented to self, will follow some simple commands, no focal deficits, tone is normal in all 4 extremities. EXTREMITIES: There is no peripheral edema, clubbing, or cyanosis. Peripheral pulses are intact. Results - Laboratory Findings CBC and BMP: 12/18/24 11:00 12/18/24 11:00 PT/INR, D-dimer PT 12.2 sec (10.0-12.5) 12/17/24 15:50 INR 1.1 (<1.2) 12/17/24 15:50 Abnormal lab findings: Abnormal Labs 12/17/24 12/17/24 12/17/24 15:35 15:35 15:35 WBC 3.31 L RBC 2.82 L Hgb 10.1 L Hct 28.7 L MCV 101.8 H MCH 35.8 H Plt Count 111 L Lymphocytes # (Manual) 0.83 L Metamyelocytes # (Man) 0.03 H Nucleated RBCs 2 H Sodium 128 L Chloride 92 L BUN 29 H Creatinine 0.46 L Glucose 183 H POC Glucose (mg/dL) Plasma Lactic Acid Jarod 4.8 H* Calcium Total Bilirubin 1.9 H Total Protein 5.2 L Albumin 3.0 L Urine Protein Urine Glucose (UA) Urine Ketones 12/17/24 12/17/24 12/17/24 18:40 19:30 23:10 WBC RBC Hgb Hct MCV MCH Plt Count Lymphocytes # (Manual) Metamyelocytes # (Man) Nucleated RBCs Sodium Chloride BUN Creatinine Glucose POC Glucose (mg/dL) Plasma Lactic Acid Jarod 4.4 H* 2.3 H* Calcium Total Bilirubin Total Protein Albumin Urine Protein Trace H Urine Glucose (UA) 2+ H Urine Ketones Trace H 12/18/24 12/18/24 12/18/24 11:00 11:00 13:32 WBC 3.47 L RBC 2.19 L Hgb 7.9 L D Hct 23.1 L MCV 105.5 H MCH 36.1 H Plt Count 91 L Lymphocytes # (Manual) Metamyelocytes # (Man) Nucleated RBCs Sodium 127 L Chloride BUN Creatinine 0.43 L Glucose 49 L* POC Glucose (mg/dL) 142 H Plasma Lactic Acid Jarod Calcium 7.7 L Total Bilirubin Total Protein 4.2 L Albumin 2.3 L Urine Protein Urine Glucose (UA) Urine Ketones 12/18/24 12/18/24 18:35 23:52 WBC RBC Hgb Hct MCV MCH Plt Count Lymphocytes # (Manual) Metamyelocytes # (Man) Nucleated RBCs Sodium Chloride BUN Creatinine Glucose POC Glucose (mg/dL) 211 H 205 H Plasma Lactic Acid Jarod Calcium Total Bilirubin Total Protein Albumin Urine Protein Urine Glucose (UA) Urine Ketones - Diagnostic Findings Chest x-ray: image reviewed Assessment and Plan Assessment: Intractable nausea and vomiting with concerns for possible aspiration, chest x- ray remarkable for cardiomegaly, mild PVC, and bibasilar airspace opacities. No pleural effusions. No pneumothoraces. Atrial fibrillation with rapid ventricular response, currently under better control and Cardizem has been discontinued Metastatic oropharyngeal cancer, brain MRI from Oct, 2024 showing a left ph aryngeal mass larger than previous PET scan with extension through the jugular eason to the cerebellar pontine angle. With vasogenic edema in the adjacent cerebellum with some mass effect. Chest CT angiogram from Oct, 2024 remarkable for increased size and number of pulmonary nodules. Largest nodule in the left upper lung measuring 2.1 cm. Additional multiple enlarged mediastinal lymph nodes. Altered mental status, likely secondary to above Chronic dysphagia and previous PEG tube placement Pancytopenia Hyponatremia, consider SIADH History of heart failure with reduced ejection fraction History of hyperlipidemia Diabetes mellitus, insulin-dependent Plan: Patient currently on room air Continue Zosyn for empiric coverage Check procalcitonin level Aspiration precautions Enteral feedings continued via PEG tube No further reports of nausea or vomiting A-fib RVR better controlled, and Cardizem has since been discontinued. Eliquis has been resumed Cardiology is following Oncology is also consulted We will continue to follow, additional recommendations forthcoming I have personally seen and examined the patient, performed the documentation and the assessment and plan as written. Number of minutes spent on the visit:20 This dictation was produced using [employer] dictation software please excuse grammatical errors . Time with Patient: Greater than 30
[2024-12-19] MEDS ORDERED: DEXTROSE 50% SYRINGE 50 ML IVP PRN ×2 (05:20)
[2024-12-19] MEDS: INSULIN LISPRO (HumaLOG) 100 UNIT/ML 10 mL VL SQ SCH (05:28)
[2024-12-19 07:36] LABS: Glucose,Whole Blood 288 mg/dL (70-110)
[2024-12-19 09:21] LABS: HCT 22.1 % (39.6-50.0); HGB 7.2 g/dL (13.0-17.0); Immature Platelet Fraction 2.5 % (1.1-6.1); MCH 34.0 pg (27.0-32.0); MCHC 32.6 g/dL (32.0-37.0); MCV 104.2 FL (80.0-97.0); NRBC Per 100 WBC 0 X 10*3/uL (0.00-0.01); Platelet Count 73 X 10*3/uL (140-440); RBC 2.12 X 10*6/uL (4.40-5.60); RDW 15.9 % (11.5-14.5); WBC 2.55 X 10*3/uL (4.50-10.00)
[2024-12-19 09:31] LABS: ALT 20 U/L (10-49); AST 23 U/L (14-35); Albumin 2.3 g/dL (3.8-4.9); Albumin/Globulin Ratio 1.53 Ratio (1.60-3.17); Alkaline Phosphatase 66 U/L (41-126); Anion Gap 9.70 mmol/L (4.00-12.00); BUN/Creat Ratio 32.00 Ratio (12.00-20.00); Blood Urea Nitrogen 12.8 mg/dL (9.0-27.0); Calcium 7.0 mg/dL (8.7-10.3); Carbon Dioxide 22.3 mmol/L (21.6-31.8); Chloride 96 mmol/L (96-109); Globulin 1.5 g/dL (1.6-3.3); Glucose 226 mg/dL (70-110); Potassium 4.0 mmol/L (3.5-5.5); Sodium 128 mmol/L (135-145); Total Protein 3.8 g/dL (6.2-8.2); Vitamin B12 958.0 pg/mL (200.0-944.0)
--- NOTE | 2024-12-19 11:06 | P.PN ---
Subjective Progress Note Date: 12/19/24 This is 74-year-old male patient with past medical history of persistent atrial fibrillation on Eliquis, CHF, hyperlipidemia, oropharyngeal cancer with G-tube feedings. Patient was seen yesterday by cardiology for A-fib with RVR, Cardizem drip was discontinued and patient maintained on oral medications. Lasix was placed on hold due to dehydration and hypotension. Patient remains in atrial fibrillation with controlled ventricular rate. Patient is maintained on Lopressor and Eliquis. Physical examination: Gen: This is 74-year-old male in no acute respiratory distress VS: reviewed HEENT: Head is atraumatic, normocephalic. Pupils equal, round. Sclerae is anicteric. NECK: Supple. No JVD. LUNGS: Scattered rhonchi. No intercostal retractions. HEART: Irregular rate and rhythm. No murmur. ABDOMEN: Soft No tenderness. EXTREMITIES: No pedal edema. No calf tenderness. NEUROLOGICAL: Patient is awake. Assessment: Persistent A-fib with RVR Oropharyngeal cancer with G-tube feedings Aspiration pneumonia Hypovolemic hyponatremia Lactic acidosis, resolved Pancytopenia Plan: Continue current cardiac medications: Eliquis 5 mg twice daily, metoprolol tartrate 25 mg twice daily, atorvastatin 20 mg daily No need to repeat echocardiogram as this was done in July No plan for any further cardiac workup at this time Cardiology will sign off this case and follow on an as-needed basis. Please r econsult for any new concerns. Nurse practitioner note has been reviewed, I agree with documented findings and plan of care. Patient was seen and examined. Objective - Vital Signs Vital signs: Vital Signs Temp 97.4 F L 12/19/24 07:50 Pulse 71 12/19/24 07:50 Resp 16 12/19/24 07:50 BP 109/72 12/19/24 07:50 Pulse Ox 93 L 12/19/24 01:13 FiO2 Intake & Output 12/18/24 12/19/24 12/19/24 18:59 06:59 18:59 Intake Total 7174.069 0965 Output Total 800 524 Balance 828.359 5897 -524 Weight 80.739 kg 78.5 kg Intake: Intake, IV Titration 94.083 1000 Amount Diltiazem 125 mg In 94.083 Dextrose 5% in Water 100 ml @ 5 MG/HR 5 mls/hr IV .Q24H [facility] Rx#:[id number] Lactated Ringers 1,000 ml 900 @ 75 mls/hr IV .[id number] [facility] Rx#:[id number] Piperacillin-Tazobactam 3 100 .375 gm In Sodium Chloride 0.9% 100 ml @ 25 mls/hr IVPB Q8HR [facility] Rx# :[id number] Tube Feeding 1440 Output: Urine 800 Post Void Residual 524 Other: # Voids 1 - Labs CBC & Chem 7: 12/19/24 05:04 12/19/24 04:11 Labs: Abnormal Lab Results - Last 24 Hours (Table) 12/18/24 12/18/24 12/18/24 Range/Units 11:00 11:00 13:32 WBC 3.47 L (4.50-10.00) 10*3/uL RBC 2.19 L (4.40-5.60) 10*6/uL Hgb 7.9 L D (13.0-17.0) g/dL Hct 23.1 L (39.6-50.0) % MCV 105.5 H (80.0-97.0) fL MCH 36.1 H (27.0-32.0) pg RDW (11.5-14.5) % Plt Count 91 L (140-440) 10*3/uL Sodium 127 L (137-145) mmol/L Creatinine 0.43 L (0.66-1.25) mg/dL Glucose 49 L* (74-99) mg/dL POC Glucose (mg/dL) 142 H (70-110) mg/dL Calcium 7.7 L (8.4-10.2) mg/dL Total Protein 4.2 L (6.3-8.2) g/dL Albumin 2.3 L (3.5-5.0) g/dL 12/18/24 12/18/24 12/19/24 Range/Units 18:35 23:52 05:04 WBC 2.55 L (4.50-10.00) 10*3/uL RBC 2.12 L (4.40-5.60) 10*6/uL Hgb 7.2 L (13.0-17.0) g/dL Hct 22.1 L (39.6-50.0) % MCV 104.2 H (80.0-97.0) fL MCH 34.0 H (27.0-32.0) pg RDW 15.9 H (11.5-14.5) % Plt Count 73 L (140-440) 10*3/uL Sodium (137-145) mmol/L Creatinine (0.66-1.25) mg/dL Glucose (74-99) mg/dL POC Glucose (mg/dL) 211 H 205 H (70-110) mg/dL Calcium (8.4-10.2) mg/dL Total Protein (6.3-8.2) g/dL Albumin (3.5-5.0) g/dL 12/19/24 Range/Units 07:35 WBC (4.50-10.00) 10*3/uL RBC (4.40-5.60) 10*6/uL Hgb (13.0-17.0) g/dL Hct (39.6-50.0) % MCV (80.0-97.0) fL MCH (27.0-32.0) pg RDW (11.5-14.5) % Plt Count (140-440) 10*3/uL Sodium (137-145) mmol/L Creatinine (0.66-1.25) mg/dL Glucose (74-99) mg/dL POC Glucose (mg/dL) 288 H (70-110) mg/dL Calcium (8.4-10.2) mg/dL Total Protein (6.3-8.2) g/dL Albumin (3.5-5.0) g/dL Microbiology - Last 24 Hours (Table) 12/17/24 17:20 Blood Culture - Preliminary Blood
--- NOTE | 2024-12-19 12:19 | P.PN ---
Subjective Progress Note Date: 12/19/24 74 year old M with PMH A-Fib, head and neck CA with PEG, CAD, systolic CHF, DM, HLD presents to the ED for lethargy, fever, wet cough and episodes of choking. In the ED he underwent extensive evaluation. BP 88/60, HR 76, T 97.2F, RR 18, 94% on RA. Labs significant for WBC 3.31, RBC 2.82, Hg 10.1, Hct 28.7, MCV 101.8, Plt 111, Na 128, Cl 92, BUN 29, Cr 0.46, glu 183, Lactic acid 2.3-1.7, T. Bili 1.9, alb 3. Amylase 41, Lipiase 43. UA neg LE or nitrite. COVID, RSV, Flu neg. EKG A-Fib with RVR rate 141. CXR showed bilateral infiltrates. Patient was started on Cardizem drip + Rocephin/Azithromycin and admitted for further workup and management. Cardiology consulted. Cardizem drip transitioned to Metoprolol. Signed off. Pulmonary consulted. Rocephin/Azithromycin switched to Zosyn on 12/18. Procal came back at 0.35. ST consulted for swallow evaluation. He did have an episode of hypoglycemia which resolved with resuming tube feeds. 12/19 Patient was seen and examined. Breathing slightly better. Still lethargic. CBC and CMP significant for WBC 2.55, RBC 2.12, Hg 7.2, Hct 22.1, MCV 104.2, Plt 73, Na 128, Cr 0.4, glu 226, Ca 7, alb 2.3. Legionella Ag neg. Procal 0.35. B12 958. Folate 13.4. Serum Osm 270. Urine Osm 621. Bella 82. Antibiotics include Zosyn 3.75g IV TID (D2). General: no distress, appears at stated age, ill appearing Derm: warm, dry Head: atraumatic, normocephalic, symmetric Eyes: no lid lag, anicteric sclera Cardiovascular: S1S2 tachy, no murmur, no edema Lungs: Coarse breath sounds, no accessory muscle use Ext: no gross muscle atrophy, muscle strength muscle strength 5 out of 5 in all 4 extremities, no contractures Neuro: no FND Psych: Lethargic but responding appropirately Based on my assessment of this patient, this patient meets a high complexity level of care. Sepsis and acute hypoxic respiratory failure secondary to aspiration PNA: Continue Zosyn 3.75 g IV TID (D2). Legionella Ag neg. Procal 0.35 Follow BCx, Sputum Cx. Elevated HOB + Aspiration precautions. LR 75 cc/hr. Pulmonary on board. AFib with RVR: Cardizem drip discontinued. Metoprolol 25 mg PEG BID to TID. Eliquis 5 mg PEG BID. Cardiology signed off. Pancytopenia: B12 and Folate as above. No signs of active bleeding. Transfuse if Hg < 7 or Plt < 10. Heme-Onc consulted. DM with hyperglycemia: Tube feeds resumed. POC glucose Q6H. Start MISS. Hypoglycemic precautions. Hypovolemic hypotonic hyponatremia: Serum Osm 270. Urine Osm 621. Bella 82. IV hydration as above. CAD: Lipitor 20 mg PEG QHS. Metoprolol and Eliquis as above. Systolic CHF: Not in acute exacerbation. Metoprolol as above. May benefit from ACEi + K sparing diuretic when improved. Head and neck CA with Pancytopenia: Consult Oncology. Resolved: Hypoglycemia, Lactic acidosis CODE STATUS: FULL CODE DVT Prophylaxis: Eliquis GI Prophylaxis: Protonix IV Designated medical POA if patient is not able to make medical decisions for themselves: . I have reviewed the following application support consultant notes: Cardiology, Pulm. I have reviewed the results of the following tests: CBC, CMP, SOsm, UOsm, Bella, B12, Folate, Legionella, Procal. I have ordered the following tests: CBC, BMP in the AM. I have discussed the care of this patient with the following independent historian: CHANTE. I have independently interpreted the following test below: I have discussed the management of this patient with the following physician: Objective - Vital Signs Vital signs: Vital Signs Temp 97.4 F L 12/19/24 07:50 Pulse 71 12/19/24 07:50 Resp 16 12/19/24 07:50 BP 109/72 12/19/24 07:50 Pulse Ox 93 L 12/19/24 01:13 FiO2 Intake & Output 12/18/24 12/19/24 12/19/24 18:59 06:59 18:59 Intake Total 6602.432 8516 Output Total 800 524 Balance 378.941 3795 -524 Weight 80.739 kg 78.5 kg Intake: Intake, IV Titration 94.083 1000 Amount Diltiazem 125 mg In 94.083 Dextrose 5% in Water 100 ml @ 5 MG/HR 5 mls/hr IV .Q24H [facility] Rx#:[id number] Lactated Ringers 1,000 ml 900 @ 75 mls/hr IV .[id number] [facility] Rx#:[id number] Piperacillin-Tazobactam 3 100 .375 gm In Sodium Chloride 0.9% 100 ml @ 25 mls/hr IVPB Q8HR [facility] Rx# :[id number] Tube Feeding 1440 Output: Urine 800 Post Void Residual 524 Other: # Voids 1 - Labs CBC & Chem 7: 12/19/24 05:04 12/19/24 04:11 Labs: Abnormal Lab Results - Last 24 Hours (Table) 12/18/24 12/18/24 12/18/24 Range/Units 11:00 11:00 13:32 WBC 3.47 L (4.50-10.00) 10*3/uL RBC 2.19 L (4.40-5.60) 10*6/uL Hgb 7.9 L D (13.0-17.0) g/dL Hct 23.1 L (39.6-50.0) % MCV 105.5 H (80.0-97.0) fL MCH 36.1 H (27.0-32.0) pg RDW (11.5-14.5) % Plt Count 91 L (140-440) 10*3/uL Sodium 127 L (137-145) mmol/L Creatinine 0.43 L (0.66-1.25) mg/dL BUN/Creatinine Ratio (12.00-20.00) Ratio Glucose 49 L* (74-99) mg/dL POC Glucose (mg/dL) 142 H (70-110) mg/dL Osmolality (275-295) mOsm/kg Calcium 7.7 L (8.4-10.2) mg/dL Total Protein 4.2 L (6.3-8.2) g/dL Albumin 2.3 L (3.5-5.0) g/dL Globulin (1.6-3.3) g/dL Albumin/Globulin Ratio (1.60-3.17) Ratio Vitamin B12 (200.0-944.0) pg/mL 12/18/24 12/18/24 12/19/24 Range/Units 18:35 23:52 04:11 WBC (4.50-10.00) 10*3/uL RBC (4.40-5.60) 10*6/uL Hgb (13.0-17.0) g/dL Hct (39.6-50.0) % MCV (80.0-97.0) fL MCH (27.0-32.0) pg RDW (11.5-14.5) % Plt Count (140-440) 10*3/uL Sodium 128 L (137-145) mmol/L Creatinine 0.4 L (0.66-1.25) mg/dL BUN/Creatinine Ratio 32.00 H (12.00-20.00) Ratio Glucose 226 H (74-99) mg/dL POC Glucose (mg/dL) 211 H 205 H (70-110) mg/dL Osmolality 270 L (275-295) mOsm/kg Calcium 7.0 L (8.4-10.2) mg/dL Total Protein 3.8 L (6.3-8.2) g/dL Albumin 2.3 L (3.5-5.0) g/dL Globulin 1.5 L (1.6-3.3) g/dL Albumin/Globulin Ratio 1.53 L (1.60-3.17) Ratio Vitamin B12 958.0 H (200.0-944.0) pg/mL 12/19/24 12/19/24 Range/Units 05:04 07:35 WBC 2.55 L (4.50-10.00) 10*3/uL RBC 2.12 L (4.40-5.60) 10*6/uL Hgb 7.2 L (13.0-17.0) g/dL Hct 22.1 L (39.6-50.0) % MCV 104.2 H (80.0-97.0) fL MCH 34.0 H (27.0-32.0) pg RDW 15.9 H (11.5-14.5) % Plt Count 73 L (140-440) 10*3/uL Sodium (137-145) mmol/L Creatinine (0.66-1.25) mg/dL BUN/Creatinine Ratio (12.00-20.00) Ratio Glucose (74-99) mg/dL POC Glucose (mg/dL) 288 H (70-110) mg/dL Osmolality (275-295) mOsm/kg Calcium (8.4-10.2) mg/dL Total Protein (6.3-8.2) g/dL Albumin (3.5-5.0) g/dL Globulin (1.6-3.3) g/dL Albumin/Globulin Ratio (1.60-3.17) Ratio Vitamin B12 (200.0-944.0) pg/mL Microbiology - Last 24 Hours (Table) 12/17/24 17:20 Blood Culture - Preliminary Blood
--- NOTE | 2024-12-19 12:26 | P.CONS ---
History of Present Illness - Reason for Consult Consult date: 12/19/24 - History of Present Illness Patient is a 74-year-old male with history of oropharyngeal cancer who follows up with Dr. De Jesus. Oncological history as follows: Mr. Alexander is 74 years old a male who presented with progressive dysphasia, hoarseness, weight loss, and headaches over about 6 months. he was referred to Dr. Colby and then Dr. Velazquez. He was noted to have a fixed left vocal cord. CT neck on 12/2023 purportedly demonstrated a left oropharyngeal lesion. PET/CT on 02/27/2024 demonstrated left lateral pharyngeal lesion with SUV to 11.2 (appears submucosal). There was also a left neck level II node measuring 1.1 cm with SUV to 15.6. There were also 5 lung nodules which had increased in size from 12/2023, with SUV up to 5.1. 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 The focus was 2.5 cm and with KRISTEN. He underwent PEG tube placement. His disease is PDL-1 15-20%, NGS showed no significant mutation, MINDY, low TMB. On 04/28/2024 he started weekly carbo/taxol and keytruda. He received 4 cycles, last dose 07/07/24. On 07/13/2024 PET scan showed some disease improvement. Patient currently consulted due to his history of head and neck cancer with PEG tube. He was admitted for acute metabolic encephalopathy in the setting of sepsis secondary to pneumonia, and further complicated with atrial fibrillation with RVR. When seen patient was lethargic, going in and out of sleep. He was minimally responsive but could answer some questions and follow commands. States he does not have any current complaints or was not in any pain. Checks x-ray suggestive for pneumonia. Will contact family regarding his status. Pertinent positives and negatives as discussed above, a complete review of systems was performed and all other systems are negative. Past Medical History Past Medical History: Atrial Fibrillation, Cancer, Diabetes Mellitus, Hyperlipidemia, Myocardial Infarction ([place]) Additional Past Medical History / Comment(s): Spine CA C1/C2, CVA, Last Myocardial Infarction Date:: 2010 History of Any Multi-Drug Resistant Organisms: None Reported Past Surgical History: Joint Replacement Additional Past Surgical History / Comment(s): Peg tube, Past Anesthesia/Blood Transfusion Reactions: No Reported Reaction Past Psychological History: No Psychological Hx Reported Smoking Status: Never smoker Past Alcohol Use History: None Reported Past Drug Use History: None Reported - Past Family History Father Family Medical History: No Reported History Mother Family Medical History: No Reported History Brother(s) Additional Family Medical History / Comment(s): liver disease Medications and Allergies Home Medications Medication Instructions Recorded Confirmed Type Atorvastatin [Lipitor] 20 mg PEG/G-TUBE HS 07/21/24 12/17/24 History HYDROcodone/APAP 10-325MG [[place] 1 tab PEG/G-TUBE QID PRN 07/21/24 12/17/24 History 10-325] Ondansetron Odt [Zofran ODT] 8 mg PEG/G-TUBE Q8H PRN 10/12/24 12/17/24 History Apixaban [Eliquis] 5 mg PEG/G-TUBE BID #28 tab 10/20/24 12/17/24 Rx ALPRAZolam [Xanax] 0.5 mg PEG/G-TUBE DAILY 11/22/24 12/17/24 History Insulin Aspart [NovoLOG Flexpen] See Protocol SQ ACHS PRN 11/22/24 12/17/24 History Insulin Glargine,Hum.rec.anlog 8 units SQ BID 11/22/24 12/17/24 History [Lantus Solostar Pen] Omeprazole [PriLOSEC] 20 mg PEG/G-TUBE DAILY 11/22/24 12/17/24 History Metoprolol Tartrate [Lopressor] 25 mg PEG/G-TUBE BID #90 tab 11/25/24 12/17/24 Rx Furosemide [Lasix] 40 mg PEG/G-TUBE DAILY PRN 12/17/24 12/17/24 History Potassium Chloride Oral Liquid 20 meq PO DAILY PRN 12/17/24 12/17/24 History Allergies Allergy/AdvReac Type Severity Reaction Status Date / Time Mushroom Allergy Unknown Verified 12/17/24 19:11 mushroom Allergy Unknown Verified 12/17/24 19:11 Physical Exam Vitals: Vital Signs Temp Pulse Pulse Resp BP BP Pulse Ox 12/19/24 07:50 97.4 F L 71 16 109/72 12/19/24 01:13 97.4 F L 88 16 99/60 93 L 12/18/24 22:30 16 12/18/24 21:49 99.1 F 96 18 93/58 94 L 12/18/24 21:41 98.6 F 97 18 126/85 95 12/18/24 21:37 98.6 F 97 18 126/85 95 12/18/24 18:00 94 18 108/58 94 L 12/18/24 15:28 87 18 93/62 97 12/18/24 13:00 81 17 96/52 97 Intake and Output 12/18/24 12/19/24 12/19/24 22:59 06:59 14:59 Intake Total 1000 Output Total 524 Balance 1000 -524 Intake: Intake, IV Titration 1000 Amount Lactated Ringers 1,000 ml 900 @ 75 mls/hr IV .[id number] [facility] Rx#:[id number] Piperacillin-Tazobactam 3 100 .375 gm In Sodium Chloride 0.9% 100 ml @ 25 mls/hr IVPB Q8HR [facility] Rx# :[id number] Output: Post Void Residual 524 Other: # Voids 1 Weight 80.739 kg 78.5 kg Gen: Lethargic, PEG tube HEENT: normocephalic, atraumatic, hearing acuity is intant CVS: perfusing all extremities well, no pitting edema, Respiratory: symmetric chest expansion GI: soft, NTTP, ND : no suprapubic tenderness, no CVA tenderness MSK/Derm: no rashes, cyanosis Results CBC & Chem 7: 12/19/24 05:04 12/19/24 04:11 Labs: Abnormal Lab Results - Last 24 Hours (Table) 12/18/24 12/18/24 12/18/24 Range/Units 11:00 11:00 13:32 WBC 3.47 L (4.50-10.00) 10*3/uL RBC 2.19 L (4.40-5.60) 10*6/uL Hgb 7.9 L D (13.0-17.0) g/dL Hct 23.1 L (39.6-50.0) % MCV 105.5 H (80.0-97.0) fL MCH 36.1 H (27.0-32.0) pg RDW (11.5-14.5) % Plt Count 91 L (140-440) 10*3/uL Sodium 127 L (137-145) mmol/L Creatinine 0.43 L (0.66-1.25) mg/dL BUN/Creatinine Ratio (12.00-20.00) Ratio Glucose 49 L* (74-99) mg/dL POC Glucose (mg/dL) 142 H (70-110) mg/dL Osmolality (275-295) mOsm/kg Calcium 7.7 L (8.4-10.2) mg/dL Total Protein 4.2 L (6.3-8.2) g/dL Albumin 2.3 L (3.5-5.0) g/dL Globulin (1.6-3.3) g/dL Albumin/Globulin Ratio (1.60-3.17) Ratio Vitamin B12 (200.0-944.0) pg/mL 12/18/24 12/18/24 12/19/24 Range/Units 18:35 23:52 04:11 WBC (4.50-10.00) 10*3/uL RBC (4.40-5.60) 10*6/uL Hgb (13.0-17.0) g/dL Hct (39.6-50.0) % MCV (80.0-97.0) fL MCH (27.0-32.0) pg RDW (11.5-14.5) % Plt Count (140-440) 10*3/uL Sodium 128 L (137-145) mmol/L Creatinine 0.4 L (0.66-1.25) mg/dL BUN/Creatinine Ratio 32.00 H (12.00-20.00) Ratio Glucose 226 H (74-99) mg/dL POC Glucose (mg/dL) 211 H 205 H (70-110) mg/dL Osmolality 270 L (275-295) mOsm/kg Calcium 7.0 L (8.4-10.2) mg/dL Total Protein 3.8 L (6.3-8.2) g/dL Albumin 2.3 L (3.5-5.0) g/dL Globulin 1.5 L (1.6-3.3) g/dL Albumin/Globulin Ratio 1.53 L (1.60-3.17) Ratio Vitamin B12 958.0 H (200.0-944.0) pg/mL 12/19/24 12/19/24 Range/Units 05:04 07:35 WBC 2.55 L (4.50-10.00) 10*3/uL RBC 2.12 L (4.40-5.60) 10*6/uL Hgb 7.2 L (13.0-17.0) g/dL Hct 22.1 L (39.6-50.0) % MCV 104.2 H (80.0-97.0) fL MCH 34.0 H (27.0-32.0) pg RDW 15.9 H (11.5-14.5) % Plt Count 73 L (140-440) 10*3/uL Sodium (137-145) mmol/L Creatinine (0.66-1.25) mg/dL BUN/Creatinine Ratio (12.00-20.00) Ratio Glucose (74-99) mg/dL POC Glucose (mg/dL) 288 H (70-110) mg/dL Osmolality (275-295) mOsm/kg Calcium (8.4-10.2) mg/dL Total Protein (6.3-8.2) g/dL Albumin (3.5-5.0) g/dL Globulin (1.6-3.3) g/dL Albumin/Globulin Ratio (1.60-3.17) Ratio Vitamin B12 (200.0-944.0) pg/mL Microbiology - Last 24 Hours (Table) 12/17/24 17:20 Blood Culture - Preliminary Blood Assessment and Plan Assessment: #. Weakness #. Acute encephalopathy secondary to sepsis/PNA #. Afib w/rv, rate controlled - Likely multifactorial including multiple hospitalizations for infections - currently on antibiotics by primary service -Plans to participate with PT/OT outpt - rate controlled by cardiology - continue Eliquis 5 mg BID #. Pancytopenia #. Macrocytic anemia - No signs of acute bleeding - transfuse for a Hgb <7 or if pt is symptomatic. - Hgb stable at 7.2, platelets 73, continue to monitor #. Head and neck cancer - Diagnosis and treatment as documented in consult - will likely need imaging to assess disease progression Thank you for this consultation. Will continue to follow this patient throughout duration of admission. Please not hesitate to ask any further questions. Mehmet Ismailoglu, MD PGY2 - IM
[2024-12-19 12:36] LABS: Glucose,Whole Blood 255 mg/dL (70-110)
[2024-12-19] MEDS: METOPROLOL TARTRATE 25 MG TAB PEG/G-TUBE SCH (15:19)
[2024-12-19 17:14] LABS: Glucose,Whole Blood 149 mg/dL (70-110)
[2024-12-19] MEDS: ACETAMINOPHEN TAB 325 MG TAB PO PRN (17:37)
[2024-12-20 00:05] LABS: Glucose,Whole Blood 156 mg/dL (70-110)
[2024-12-20 05:31] LABS: HCT 21.7 % (39.6-50.0); HGB 7.5 g/dL (13.0-17.0); MCH 35.9 pg (27.0-32.0); MCHC 34.6 g/dL (32.0-37.0); MCV 103.8 fL (80.0-97.0); RBC 2.09 10*6/uL (4.40-5.60); RDW 15.8 % (11.5-14.5); WBC 1.87 10*3/uL (4.50-10.00)
[2024-12-20] MEDS: ZINC OXIDE PASTE (Z-GUARD) 1 APPLIC TOPICAL PRN (05:35)
[2024-12-20 05:41] LABS: Platelet Count 65 10*3/uL (140-440)
[2024-12-20 05:57] LABS: Glucose,Whole Blood 119 mg/dL (70-110)
[2024-12-20 05:58] LABS: African American GFR (CKD) >90 (>60 ml/min/1.73 sqM); Anion Gap 7 mmol/L; Blood Urea Nitrogen 8 mg/dL (9-20); Calcium 7.5 mg/dL (8.4-10.2); Carbon Dioxide 23 mmol/L (22-30); Chloride 95 mmol/L (98-107); Glucose 106 mg/dL (74-99); Non-African American GFR(CKD) >90 (>60 ml/min/1.73 sqM); Potassium 3.8 mmol/L (3.5-5.1); Sodium 125 mmol/L (137-145)
[2024-12-20 09:26] LABS: Glucose,Whole Blood 286 mg/dL (70-110)
[2024-12-20] MEDS: FUROSEMIDE 10 MG/ML 4 ML VIAL IV STA (10:43)
--- NOTE | 2024-12-20 11:01 | XR ---
EXAMINATION TYPE: XR chest 1V portable DATE OF EXAM: 12/20/2024 10:54 AM COMPARISON: Multiple radiographs, with the most recent on 12/18/2024 TECHNIQUE: XR chest 1V portable Portable AP radiograph of the chest. CLINICAL INDICATION:Male, 74 years old with history of PNA; FINDINGS: Patient is rotated which limits evaluation. Lungs/Pleura: No pleural effusion or pneumothorax. Similar bibasilar patchy airspace opacities. Chron ic interstitial prominence. Heart/mediastinum: Cardiomediastinal silhouette is prominent in size. Musculoskeletal: No acute osseous pathology. IMPRESSION: Similar bibasilar patchy airspace opacities concerning for pneumonia versus atelectasis. [facility], , 12/20/2024 10:59 AM
--- NOTE | 2024-12-20 11:55 | P.PN ---
Subjective Progress Note Date: 12/20/24 74 year old M with PMH A-Fib, head and neck CA with PEG, CAD, systolic CHF, DM, HLD presents to the ED for lethargy, fever, wet cough and episodes of choking. In the ED he underwent extensive evaluation. BP 88/60, HR 76, T 97.2F, RR 18, 94% on RA. Labs significant for WBC 3.31, RBC 2.82, Hg 10.1, Hct 28.7, MCV 101.8, Plt 111, Na 128, Cl 92, BUN 29, Cr 0.46, glu 183, Lactic acid 2.3-1.7, T. Bili 1.9, alb 3. Amylase 41, Lipiase 43. UA neg LE or nitrite. COVID, RSV, Flu neg. EKG A-Fib with RVR rate 141. CXR showed bilateral infiltrates. Patient was started on Cardizem drip + Rocephin/Azithromycin and admitted for further workup and management. Cardiology consulted. Cardizem drip transitioned to Metoprolol. Signed off. Pulmonary consulted. Rocephin/Azithromycin switched to Zosyn on 12/18. Procal came back at 0.35. ST consulted for swallow evaluation. He did have an episode of hypoglycemia which resolved with resuming tube feeds. 12/19 Patient was seen and examined. Breathing slightly better. Still lethargic. CBC and CMP significant for WBC 2.55, RBC 2.12, Hg 7.2, Hct 22.1, MCV 104.2, Plt 73, Na 128, Cr 0.4, glu 226, Ca 7, alb 2.3. Legionella Ag neg. Procal 0.35. B12 958. Folate 13.4. Serum Osm 270. Urine Osm 621. Bella 82. Antibiotics include Zosyn 3.75g IV TID (D2). 12/20 Patient was seen and examined. Congested. Still lethargic. CBC and CMP significant for WBC 1.87, RBC 2.09, Hg 7.5, Hct 21.7, MCV 103.8, Plt 65, Na 125, Cl 95, BUN 8, Cr 0.26, glu 106, Ca 7.5. Antibiotics include Zosyn 3.75g IV TID (D3). BCx neg so far. CXR done today shows bibasilar patchy airspace opacities. General: no distress, appears at stated age, ill appearing Derm: warm, dry Head: atraumatic, normocephalic, symmetric Eyes: no lid lag, anicteric sclera Cardiovascular: S1S2 tachy, no murmur, no edema Lungs: Coarse breath sounds, no accessory muscle use Ext: no gross muscle atrophy, muscle strength muscle strength 5 out of 5 in all 4 extremities, no contractures Neuro: no FND Psych: Lethargic but responding appropriately Based on my assessment of this patient, this patient meets a high complexity level of care. Sepsis and acute hypoxic respiratory failure secondary to aspiration PNA: Continue Zosyn 3.75 g IV TID (D3). Legionella Ag neg. Procal 0.35 Follow BCx, Sputum Cx. Elevated HOB + Aspiration precautions. Switch LR to NS at 50 cc/hr. Pulmonary on board. AFib with RVR: Cardizem drip discontinued. Metoprolol 25 mg PEG BID to TID. Eliquis 5 mg PEG BID. Cardiology signed off. Pancytopenia: B12 and Folate as above. No signs of active bleeding. Transfuse if Hg < 7 or Plt < 10. Heme-Onc on board. DM with hyperglycemia: Tube feeds resumed. POC glucose Q6H. Start MISS. Hypoglycemic precautions. Hypovolemic hypotonic hyponatremia: Serum Osm 270. Urine Osm 621. Bella 82. IV hydration as above. CAD: Lipitor 20 mg PEG QHS. Metoprolol and Eliquis as above. Systolic CHF: Not in acute exacerbation. Metoprolol as above. May benefit from ACEi + K sparing diuretic when improved. Head and neck CA with Pancytopenia: Consult Oncology. Resolved: Hypoglycemia, Lactic acidosis CODE STATUS: FULL CODE DVT Prophylaxis: Eliquis GI Prophylaxis: Protonix IV Designated medical POA if patient is not able to make medical decisions for themselves: . I have reviewed the following client support consultant notes: I have reviewed the results of the following tests: CBC, BMP, BCx. I have ordered the following tests: CBC, BMP in the AM. I have discussed the care of this patient with the following independent hi storian: RN. . I have independently interpreted the following test below: CXR I have discussed the management of this patient with the following physician: Objective - Vital Signs Vital signs: Vital Signs Temp 97.5 F L 12/20/24 09:34 Pulse 121 H 12/20/24 09:34 Resp 20 12/20/24 09:34 BP 107/67 12/20/24 09:34 Pulse Ox 96 12/20/24 07:29 FiO2 Intake & Output 12/19/24 12/20/24 12/20/24 18:59 06:59 18:59 Intake Total 480 Output Total 1224 300 400 Balance -744 -300 -400 Weight 79 kg Intake: Tube Feeding 480 Output: Urine 700 300 400 Post Void Residual 524 Other: Voiding Method Urinal Urinal Incontinent Incontinent External Catheter - Labs CBC & Chem 7: 12/20/24 04:32 12/20/24 04:32 Labs: Abnormal Lab Results - Last 24 Hours (Table) 12/19/24 12/19/24 12/19/24 Range/Units 05:17 12:34 17:10 WBC (4.50-10.00) 10*3/uL RBC (4.40-5.60) 10*6/uL Hgb (13.0-17.0) g/dL Hct (39.6-50.0) % MCV (80.0-97.0) fL MCH (27.0-32.0) pg RDW (11.5-14.5) % Plt Count (140-440) 10*3/uL Sodium (137-145) mmol/L Chloride (98-107) mmol/L BUN (9-20) mg/dL Creatinine (0.66-1.25) mg/dL Glucose (74-99) mg/dL POC Glucose (mg/dL) 286 H 255 H 149 H (70-110) mg/dL Hemoglobin A1c (<=6.0) % Calcium (8.4-10.2) mg/dL 12/19/24 12/20/24 12/20/24 Range/Units 23:58 04:32 04:32 WBC 1.87 L (4.50-10.00) 10*3/uL RBC 2.09 L (4.40-5.60) 10*6/uL Hgb 7.5 L (13.0-17.0) g/dL Hct 21.7 L (39.6-50.0) % MCV 103.8 H (80.0-97.0) fL MCH 35.9 H (27.0-32.0) pg RDW 15.8 H (11.5-14.5) % Plt Count 65 L (140-440) 10*3/uL Sodium (137-145) mmol/L Chloride (98-107) mmol/L BUN (9-20) mg/dL Creatinine (0.66-1.25) mg/dL Glucose (74-99) mg/dL POC Glucose (mg/dL) 156 H (70-110) mg/dL Hemoglobin A1c 8.6 H (<=6.0) % Calcium (8.4-10.2) mg/dL 12/20/24 12/20/24 Range/Units 04:32 05:55 WBC (4.50-10.00) 10*3/uL RBC (4.40-5.60) 10*6/uL Hgb (13.0-17.0) g/dL Hct (39.6-50.0) % MCV (80.0-97.0) fL MCH (27.0-32.0) pg RDW (11.5-14.5) % Plt Count (140-440) 10*3/uL Sodium 125 L (137-145) mmol/L Chloride 95 L (98-107) mmol/L BUN 8 L (9-20) mg/dL Creatinine 0.26 L (0.66-1.25) mg/dL Glucose 106 H (74-99) mg/dL POC Glucose (mg/dL) 119 H (70-110) mg/dL Hemoglobin A1c (<=6.0) % Calcium 7.5 L (8.4-10.2) mg/dL Microbiology - Last 24 Hours (Table) 12/17/24 17:20 Blood Culture - Preliminary Blood
[2024-12-20 12:30] LABS: Glucose,Whole Blood 214 mg/dL (70-110)
[2024-12-20] MEDS: SCOPOLAMINE 1 MG/72 HR PATCH TRANSDERM SCH (12:49)
[2024-12-20] MEDS: SODIUM CHLORIDE 0.9% 1,000 ML IV SCH (12:49)
--- NOTE | 2024-12-20 13:24 | P.PN ---
Subjective Progress Note Date: 12/20/24 Patient is a 74-year-old male with past medical history significant for head/neck cancer diagnosed back in April,. 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 Previously on carbo/Taxol, subsequently on Keytruda. PET scan from June, demonstr ating a 2.8 x 2.2 cm parapharyngeal mass. FDG avid left upper lobe pulmonary nodule. Since then, concerns for disease progression. MRI brain from Oct, 2024 showing a left pharyngeal mass larger than previous PET scan with extension through the jugular eason to the cerebellar pontine angle. With vasogenic edema in the adjacent cerebellum with some mass effect. Currently, undergoing radiation treatments. Also, takes oral Decadron. Chest CT angiogram from Oct, 2024 remarkable for increased size and number of pulmonary nodules. Largest nodule in the left upper lung measuring 2.1 cm. Additional multiple enlarged mediastinal lymph nodes. Did have issues with swallowing and did have a PEG tube placed at an outside facility. He has had multiple hospitalizations related to related complications of his cancer and treatments. He follows with his established oncologist Dr. De Jesus. Additional past medical history including hyperlipidemia, diabetes, atrial fibrillation, heart failure. Echocardiogram from July, estimating left ventricular ejection fraction of 45 to 50%. Patient currently being evaluated on the oncology unit. He is a poor historian. Apparently, brought into the emergency department back on 12/17/2024 for nausea, vomiting, and generalized weakness. Also, family was reporting fevers at home. Concerns of sepsis. While in the ED, noted to be in atrial fi brillation with RVR, started on Cardizem infusion for rate control. Blood pressure was marginal and the patient was fluid resuscitated with a total of 2.5 L of LR. Chest x-ray remarkable for cardiomegaly, pulmonary vascular congestion, and bibasilar airspace opacities. NT proBNP 2140. CBC with a WBC count of 3.47, hemoglobin 7.9 g/dL, platelets 91,000. CMP: Sodium 127, potassium 4.2, chloride 99, serum bicarb 22, BUN 17, creatinine 0.43, glucose 205. Lactic was elevated at 4.8 is down to 1.7. Urinalysis unremarkable for infection. Viral screen negative for influenza A/B, RSV, COVID. Urine Legionella antigen negative. Started empirically on Zosyn previously. No recorded fevers while inpatient. No observed coughing. He is on room air. Does not appear in any respiratory distress. LR infusing at 75 mL/h. Cardizem has previously been discontinued. Most recent vital signs including a temperature of 97.4 F, heart rate 88 bpm, blood pressure 99/60 mmHg, nontachypneic, SpO2 recorded at 93% on room air. The patient is seen today December 20, 2024 in follow-up on the regular medical floor. He is currently awake and alert. Sitting up in bed. He has a loose congested cough. He is maintaining good O2 saturations in the mid 90s on room air oxygen. He has been afebrile. Slightly tachycardic. Follow-up chest x-ray shows similar bibasilar patchy airspace opacities. Blood culture reveals no growth. White count 1.87. Hemoglobin 7.5. Platelets 65,000. Sodium 125. Potassium 3.8. Bicarb 23. BUN 8. Creatinine 0.26. Glucose 106. proBNP 3260. Procalcitonin was negative at 0.35. TSH 2.16. He remains anticoagulated with Eliquis. Being nourished with Jevity 1.5 bolus tube feedings of 240 mL 6 times per day. Normal saline at 50 mL/h. Objective - Vital Signs Vital signs: Vital Signs Temp 97.5 F L 12/20/24 09:34 Pulse 121 H 12/20/24 09:34 Resp 20 12/20/24 09:34 BP 107/67 12/20/24 09:34 Pulse Ox 96 12/20/24 07:29 FiO2 Intake & Output 12/19/24 12/20/24 12/20/24 18:59 06:59 18:59 Intake Total 480 Output Total 1224 300 400 Balance -744 -300 -400 Weight 79 kg Intake: Tube Feeding 480 Output: Urine 700 300 400 Post Void Residual 524 Other: Voiding Method Urinal Urinal Incontinent Incontinent External Catheter - Exam GENERAL EXAM: Alert, 74-year-old male, sitting up in bed, on room air oxygen, comfortable in no apparent distress. HEAD: Normocephalic and atraumatic EYES: Normal reaction of pupils, equal size. NOSE: Clear with pink turbinates. THROAT: No erythema or exudates. Dry mucous membranes. NECK: No masses, no JVD. CHEST: No chest wall deformity. LUNGS: Equal air entry with scattered rhonchi. No crackles, wheezing, focal dullness. No conversational dyspnea or accessory muscle use. CVS: S1 and S2 normal with no audible murmur, irregular rhythm. No extra heart sounds ABDOMEN: No hepatosplenomegaly, active bowel sounds, no guarding or rigidity. PEG tube noted. SPINE: No scoliosis or deformity SKIN: No rashes CENTRAL NERVOUS SYSTEM: Patient is alert, only oriented to self, will follow some simple commands, no focal deficits, tone is normal in all 4 extremities. EXTREMITIES: There is no peripheral edema, clubbing, or cyanosis. Peripheral pulses are intact. - Labs CBC & Chem 7: 12/20/24 04:32 12/20/24 04:32 Labs: Abnormal Lab Results - Last 24 Hours (Table) 12/19/24 12/19/24 12/19/24 Range/Units 05:17 17:10 23:58 WBC (4.50-10.00) 10*3/uL RBC (4.40-5.60) 10*6/uL Hgb (13.0-17.0) g/dL Hct (39.6-50.0) % MCV (80.0-97.0) fL MCH (27.0-32.0) pg RDW (11.5-14.5) % Plt Count (140-440) 10*3/uL Sodium (137-145) mmol/L Chloride (98-107) mmol/L BUN (9-20) mg/dL Creatinine (0.66-1.25) mg/dL Glucose (74-99) mg/dL POC Glucose (mg/dL) 286 H 149 H 156 H (70-110) mg/dL Hemoglobin A1c (<=6.0) % Calcium (8.4-10.2) mg/dL 12/20/24 12/20/24 12/20/24 Range/Units 04:32 04:32 04:32 WBC 1.87 L (4.50-10.00) 10*3/uL RBC 2.09 L (4.40-5.60) 10*6/uL Hgb 7.5 L (13.0-17.0) g/dL Hct 21.7 L (39.6-50.0) % MCV 103.8 H (80.0-97.0) fL MCH 35.9 H (27.0-32.0) pg RDW 15.8 H (11.5-14.5) % Plt Count 65 L (140-440) 10*3/uL Sodium 125 L (137-145) mmol/L Chloride 95 L (98-107) mmol/L BUN 8 L (9-20) mg/dL Creatinine 0.26 L (0.66-1.25) mg/dL Glucose 106 H (74-99) mg/dL POC Glucose (mg/dL) (70-110) mg/dL Hemoglobin A1c 8.6 H (<=6.0) % Calcium 7.5 L (8.4-10.2) mg/dL 12/20/24 12/20/24 Range/Units 05:55 12:28 WBC (4.50-10.00) 10*3/uL RBC (4.40-5.60) 10*6/uL Hgb (13.0-17.0) g/dL Hct (39.6-50.0) % MCV (80.0-97.0) fL MCH (27.0-32.0) pg RDW (11.5-14.5) % Plt Count (140-440) 10*3/uL Sodium (137-145) mmol/L Chloride (98-107) mmol/L BUN (9-20) mg/dL Creatinine (0.66-1.25) mg/dL Glucose (74-99) mg/dL POC Glucose (mg/dL) 119 H 214 H (70-110) mg/dL Hemoglobin A1c (<=6.0) % Calcium (8.4-10.2) mg/dL Microbiology - Last 24 Hours (Table) 12/17/24 17:20 Blood Culture - Preliminary Blood Assessment and Plan Assessment: Intractable nausea and vomiting with concerns for possible aspiration, chest x- ray remarkable for cardiomegaly, mild PVC, and bibasilar airspace opacities. No pleural effusions. No pneumothoraces. Procalcitonin negative Atrial fibrillation with rapid ventricular response, currently under better control and Cardizem has been discontinued Metastatic oropharyngeal cancer, brain MRI from May, 2025 showing a left pharyngeal mass larger than previous PET scan with extension through the jugular eason to the cerebellar pontine angle. With vasogenic edema in the adjacent cerebellum with some mass effect. Chest CT angiogram from Oct, 2024 remarkable for increased size and number of pulmonary nodules. Largest nodule in the left upper lung measuring 2.1 cm. Additional multiple enlarged mediastinal lymph nodes Altered mental status, likely secondary to above Chronic dysphagia and previous PEG tube placement Pancytopenia Hyponatremia, consider SIADH History of heart failure with reduced ejection fraction History of hyperlipidemia Diabetes mellitus, insulin-dependent Plan: The patient was seen and evaluated Chest x-ray, labs and medications reviewed Procalcitonin negative Could consider de-escalating antibiotics Regulated with Eliquis Normal saline at 50 mL/h Continued on Jevity tube feedings Aspiration precautions Scopolamine patch in place Received Lasix 40 mg IVP x 1 Prognosis is guarded Plan is for home with home care at discharge This patient was seen independently by the pulmonary nurse practitioner addressing pulmonary issues statement I have personally seen and examined the patient, performed the documentation and the assessment and plan as written. Number of minutes spent on the visit: 25 Dictation was produced using [employer] dictation software. Please excuse any grammatical, word or spelling errors.
[2024-12-20] MEDS: MAG HYDROX/AL HYDROX/SIMETH 30 ML, diphenhydrAMINE ELIXIR 75 MG, NYSTATIN 100,000 UNIT/... PO SCH (14:41)
[2024-12-20 17:36] LABS: Glucose,Whole Blood 140 mg/dL (70-110)
[2024-12-21 00:06] LABS: Glucose,Whole Blood 190 mg/dL (70-110)
[2024-12-21 05:31] LABS: Glucose,Whole Blood 167 mg/dL (70-110)
--- NOTE | 2024-12-21 07:07 | P.PN ---
Subjective Progress Note Date: 12/20/24 Patient seen and evaluated at bedside. Spoke with family member at bedside. States that she started noticing him going downhill within the past month. Has had radiation treatment within the past month had has gone to 18 of 32 appointments. Patient having difficulty speaking. Objective - Vital Signs Vital signs: Vital Signs Temp 99.3 F 12/20/24 14:41 Pulse 99 12/20/24 15:44 Resp 20 12/20/24 13:46 BP 96/63 12/20/24 15:44 Pulse Ox 93 L 12/20/24 12:41 FiO2 Intake & Output 12/19/24 12/20/24 12/20/24 18:59 06:59 18:59 Intake Total 480 Output Total 1224 300 900 Balance -614 300 -900 Weight 79 kg Intake: Tube Feeding 480 Output: Urine 700 300 900 Post Void Residual 524 Other: Voiding Method Urinal Urinal Incontinent Incontinent External Catheter # Voids 3 # Bowel Movements 1 - Exam Gen: Lethargic, PEG tube HEENT: normocephalic, atraumatic, hearing acuity is intant, dry mouth CVS: perfusing all extremities well, no pitting edema, Respiratory: symmetric chest expansion GI: soft, tender to palpation MSK/Derm: no rashes, cyanosis - Labs CBC & Chem 7: 12/20/24 04:32 12/20/24 04:32 Labs: Abnormal Lab Results - Last 24 Hours (Table) 12/19/24 12/19/24 12/20/24 Range/Units 05:17 23:58 04:32 WBC (4.50-10.00) 10*3/uL RBC (4.40-5.60) 10*6/uL Hgb (13.0-17.0) g/dL Hct (39.6-50.0) % MCV (80.0-97.0) fL MCH (27.0-32.0) pg RDW (11.5-14.5) % Plt Count (140-440) 10*3/uL Sodium (137-145) mmol/L Chloride (98-107) mmol/L BUN (9-20) mg/dL Creatinine (0.66-1.25) mg/dL Glucose (74-99) mg/dL POC Glucose (mg/dL) 286 H 156 H (70-110) mg/dL Hemoglobin A1c 8.6 H (<=6.0) % Calcium (8.4-10.2) mg/dL 12/20/24 12/20/24 12/20/24 Range/Units 04:32 04:32 05:55 WBC 1.87 L (4.50-10.00) 10*3/uL RBC 2.09 L (4.40-5.60) 10*6/uL Hgb 7.5 L (13.0-17.0) g/dL Hct 21.7 L (39.6-50.0) % MCV 103.8 H (80.0-97.0) fL MCH 35.9 H (27.0-32.0) pg RDW 15.8 H (11.5-14.5) % Plt Count 65 L (140-440) 10*3/uL Sodium 125 L (137-145) mmol/L Chloride 95 L (98-107) mmol/L BUN 8 L (9-20) mg/dL Creatinine 0.26 L (0.66-1.25) mg/dL Glucose 106 H (74-99) mg/dL POC Glucose (mg/dL) 119 H (70-110) mg/dL Hemoglobin A1c (<=6.0) % Calcium 7.5 L (8.4-10.2) mg/dL 12/20/24 12/20/24 Range/Units 12:28 17:34 WBC (4.50-10.00) 10*3/uL RBC (4.40-5.60) 10*6/uL Hgb (13.0-17.0) g/dL Hct (39.6-50.0) % MCV (80.0-97.0) fL MCH (27.0-32.0) pg RDW (11.5-14.5) % Plt Count (140-440) 10*3/uL Sodium (137-145) mmol/L Chloride (98-107) mmol/L BUN (9-20) mg/dL Creatinine (0.66-1.25) mg/dL Glucose (74-99) mg/dL POC Glucose (mg/dL) 214 H 140 H (70-110) mg/dL Hemoglobin A1c (<=6.0) % Calcium (8.4-10.2) mg/dL Microbiology - Last 24 Hours (Table) 12/17/24 17:20 Blood Culture - Preliminary Blood Assessment and Plan Assessment: #. Weakness #. Acute encephalopathy secondary to sepsis/PNA #. Afib w/rvr, rate controlled - Likely multifactorial including multiple hospitalizations for infections - currently on antibiotics by primary service -Plans to participate with PT/OT out patient - rate controlled by cardiology - continue Eliquis 5 mg BID #. Pancytopenia #. Macrocytic anemia - No signs of acute bleeding - transfuse for a Hgb < 7 or if pt is symptomatic. - Hgb stable at 7.5, platelets 65, continue to monitor #. Head and neck cancer - Diagnosis and treatment as documented in consult - will likely need imaging to assess disease progression - progression of clinical course has worsened and will likely need a goals of care discussion Sherrell Chau MD PGY-2 IM
[2024-12-21 09:58] LABS: Basophils # (A) 0.02 10*3/uL (0.00-0.10); Basophils % (A) 0.6 %; Eosinophils # (A) 0.02 10*3/uL (0.04-0.35); Eosinophils % (A) 0.6 %; HCT 27.9 % (39.6-50.0); HGB 9.2 g/dL (13.0-17.0); Lymphocytes # (A) 1.15 10*3/uL (0.90-5.00); Lymphocytes % (A) 37.1 %; MCH 34.3 pg (27.0-32.0); MCHC 33.0 g/dL (32.0-37.0); MCV 104.1 fL (80.0-97.0); Monocytes # (A) 0.14 10*3/uL (0.20-1.00); Monocytes % (A) 4.5 %; Neutrophils # (A) 1.73 10*3/uL (1.80-7.70); Neutrophils % (A) 55.9 %; RBC 2.68 10*6/uL (4.40-5.60); RDW 15.8 % (11.5-14.5); WBC 3.10 10*3/uL (4.50-10.00)
[2024-12-21 10:00] LABS: Platelet Count 74 10*3/uL (140-440)
[2024-12-21 10:08] LABS: African American GFR (CKD) >90 (>60 ml/min/1.73 sqM); Anion Gap 12 mmol/L; Blood Urea Nitrogen 11 mg/dL (9-20); Calcium 7.4 mg/dL (8.4-10.2); Carbon Dioxide 22 mmol/L (22-30); Chloride 93 mmol/L (98-107); Glucose 190 mg/dL (74-99); Non-African American GFR(CKD) >90 (>60 ml/min/1.73 sqM); Potassium 4.0 mmol/L (3.5-5.1); Sodium 127 mmol/L (137-145)
--- NOTE | 2024-12-21 11:16 | P.PN ---
Subjective Progress Note Date: 12/21/24 Patient is a 74-year-old male with past medical history significant for head/neck cancer diagnosed back in April,. 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 Previously on carbo/Taxol, subsequently on Keytruda. PET scan from June, demonstr ating a 2.8 x 2.2 cm parapharyngeal mass. FDG avid left upper lobe pulmonary nodule. Since then, concerns for disease progression. MRI brain from Oct, 2024 showing a left pharyngeal mass larger than previous PET scan with extension through the jugular eason to the cerebellar pontine angle. With vasogenic edema in the adjacent cerebellum with some mass effect. Currently, undergoing radiation treatments. Also, takes oral Decadron. Chest CT angiogram from Oct, 2024 remarkable for increased size and number of pulmonary nodules. Largest nodule in the left upper lung measuring 2.1 cm. Additional multiple enlarged mediastinal lymph nodes. Did have issues with swallowing and did have a PEG tube placed at an outside facility. He has had multiple hospitalizations related to related complications of his cancer and treatments. He follows with his established oncologist Dr. De Jesus. Additional past medical history including hyperlipidemia, diabetes, atrial fibrillation, heart failure. Echocardiogram from July, estimating left ventricular ejection fraction of 45 to 50%. Patient currently being evaluated on the oncology unit. He is a poor historian. Apparently, brought into the emergency department back on 12/17/2024 for nausea, vomiting, and generalized weakness. Also, family was reporting fevers at home. Concerns of sepsis. While in the ED, noted to be in atrial fi brillation with RVR, started on Cardizem infusion for rate control. Blood pressure was marginal and the patient was fluid resuscitated with a total of 2.5 L of LR. Chest x-ray remarkable for cardiomegaly, pulmonary vascular congestion, and bibasilar airspace opacities. NT proBNP 2140. CBC with a WBC count of 3.47, hemoglobin 7.9 g/dL, platelets 91,000. CMP: Sodium 127, potassium 4.2, chloride 99, serum bicarb 22, BUN 17, creatinine 0.43, glucose 205. Lactic was elevated at 4.8 is down to 1.7. Urinalysis unremarkable for infection. Viral screen negative for influenza A/B, RSV, COVID. Urine Legionella antigen negative. Started empirically on Zosyn previously. No recorded fevers while inpatient. No observed coughing. He is on room air. Does not appear in any respiratory distress. LR infusing at 75 mL/h. Cardizem has previously been discontinued. Most recent vital signs including a temperature of 97.4 F, heart rate 88 bpm, blood pressure 99/60 mmHg, nontachypneic, SpO2 recorded at 93% on room air. The patient is seen today December 20, 2024 in follow-up on the regular medical floor. He is currently awake and alert. Sitting up in bed. He has a loose congested cough. He is maintaining good O2 saturations in the mid 90s on room air oxygen. He has been afebrile. Slightly tachycardic. Follow-up chest x-ray shows similar bibasilar patchy airspace opacities. Blood culture reveals no growth. White count 1.87. Hemoglobin 7.5. Platelets 65,000. Sodium 125. Potassium 3.8. Bicarb 23. BUN 8. Creatinine 0.26. Glucose 106. proBNP 3260. Procalcitonin was negative at 0.35. TSH 2.16. He remains anticoagulated with Eliquis. Being nourished with Jevity 1.5 bolus tube feedings of 240 mL 6 times per day. Normal saline at 50 mL/h. The patient is seen today December 21, 2024 in follow-up on the regular medical floor. He is currently resting in bed. In no acute distress. Maintaining O2 saturations in the 90s on room air oxygen. He remains on Zosyn. Blood culture revealed no growth. Sputum culture pending. He did have a temperature of 101.7 last evening. White count 3.1. Hemoglobin 9.2. Platelets 74,000. Sodium 127. Potassium 4.0. Bicarb 22. BUN 11. Creatinine 0.39. Glucose 190. He is continued on Jevity 1.5 bolus feedings. Remains on normal saline at 50 mL/h. Scopolamine patch in place. Objective - Vital Signs Vital signs: Vital Signs Temp 98.9 F 12/21/24 07:52 Pulse 118 H 12/21/24 07:52 Resp 19 12/21/24 07:52 BP 111/68 12/21/24 07:52 Pulse Ox 97 12/21/24 07:52 FiO2 Intake & Output 12/20/24 12/21/24 12/21/24 18:59 06:59 18:59 Intake Total 720 Output Total 900 Balance -900 720 Weight 77.5 kg Intake: Tube Feeding 720 Output: Urine 900 Other: Voiding Method Urinal Diaper Incontinent External Catheter # Voids 3 # Bowel Movements 1 - Exam GENERAL EXAM: Alert, 74-year-old male, resting in bed, on room air oxygen, in no apparent distress. HEAD: Normocephalic and atraumatic EYES: Normal reaction of pupils, equal size. NOSE: Clear with pink turbinates. THROAT: No erythema or exudates. Dry mucous membranes. NECK: No masses, no JVD. CHEST: No chest wall deformity. LUNGS: Equal air entry with scattered rhonchi. No crackles, wheezing, focal dullness. CVS: S1 and S2 normal with no audible murmur, irregular rhythm. No extra heart sounds ABDOMEN: No hepatosplenomegaly, active bowel sounds, no guarding or rigidity. PEG tube noted. SPINE: No scoliosis or deformity SKIN: No rashes CENTRAL NERVOUS SYSTEM: Patient is alert, only oriented to self, will follow some simple commands, no focal deficits, tone is normal in all 4 extremities. EXTREMITIES: There is no peripheral edema, clubbing, or cyanosis. Peripheral pulses are intact. - Labs CBC & Chem 7: 12/21/24 09:18 12/21/24 09:18 Labs: Abnormal Lab Results - Last 24 Hours (Table) 12/20/24 12/20/24 12/20/24 Range/Units 12:28 17:34 23:58 WBC (4.50-10.00) 10*3/uL RBC (4.40-5.60) 10*6/uL Hgb (13.0-17.0) g/dL Hct (39.6-50.0) % MCV (80.0-97.0) fL MCH (27.0-32.0) pg RDW (11.5-14.5) % Plt Count (140-440) 10*3/uL Neutrophils # (1.80-7.70) 10*3/uL Monocytes # (0.20-1.00) 10*3/uL Eosinophils # (0.04-0.35) 10*3/uL Sodium (137-145) mmol/L Chloride (98-107) mmol/L Creatinine (0.66-1.25) mg/dL Glucose (74-99) mg/dL POC Glucose (mg/dL) 214 H 140 H 190 H (70-110) mg/dL Calcium (8.4-10.2) mg/dL Cortisol (3.1-22.4) UG/DL 12/21/24 12/21/24 12/21/24 Range/Units 05:29 05:34 09:18 WBC 3.10 L (4.50-10.00) 10*3/uL RBC 2.68 L (4.40-5.60) 10*6/uL Hgb 9.2 L D (13.0-17.0) g/dL Hct 27.9 L (39.6-50.0) % MCV 104.1 H (80.0-97.0) fL MCH 34.3 H (27.0-32.0) pg RDW 15.8 H (11.5-14.5) % Plt Count 74 L (140-440) 10*3/uL Neutrophils # 1.73 L (1.80-7.70) 10*3/uL Monocytes # 0.14 L (0.20-1.00) 10*3/uL Eosinophils # 0.02 L (0.04-0.35) 10*3/uL Sodium (137-145) mmol/L Chloride (98-107) mmol/L Creatinine (0.66-1.25) mg/dL Glucose (74-99) mg/dL POC Glucose (mg/dL) 167 H (70-110) mg/dL Calcium (8.4-10.2) mg/dL Cortisol 2.6 L (3.1-22.4) UG/DL 12/21/24 Range/Units 09:18 WBC (4.50-10.00) 10*3/uL RBC (4.40-5.60) 10*6/uL Hgb (13.0-17.0) g/dL Hct (39.6-50.0) % MCV (80.0-97.0) fL MCH (27.0-32.0) pg RDW (11.5-14.5) % Plt Count (140-440) 10*3/uL Neutrophils # (1.80-7.70) 10*3/uL Monocytes # (0.20-1.00) 10*3/uL Eosinophils # (0.04-0.35) 10*3/uL Sodium 127 L (137-145) mmol/L Chloride 93 L (98-107) mmol/L Creatinine 0.39 L (0.66-1.25) mg/dL Glucose 190 H (74-99) mg/dL POC Glucose (mg/dL) (70-110) mg/dL Calcium 7.4 L (8.4-10.2) mg/dL Cortisol (3.1-22.4) UG/DL Microbiology - Last 24 Hours (Table) 12/20/24 17:19 Gram Stain - Preliminary Sputum 12/17/24 17:20 Blood Culture - Preliminary Blood Assessment and Plan Assessment: Intractable nausea and vomiting with concerns for possible aspiration, chest x- ray remarkable for cardiomegaly, mild PVC, and bibasilar airspace opacities. No pleural effusions. No pneumothoraces. Procalcitonin negative. Sputum culture pending Atrial fibrillation with rapid ventricular response, currently under better control and Cardizem has been discontinued Metastatic oropharyngeal cancer, brain MRI from Oct, 2024 showing a left pha ryngeal mass larger than previous PET scan with extension through the jugular eason to the cerebellar pontine angle. With vasogenic edema in the adjacent cerebellum with some mass effect. Chest CT angiogram from Oct, 2024 remarkable for increased size and number of pulmonary nodules. Largest nodule in the left upper lung measuring 2.1 cm. Additional multiple enlarged mediastinal lymph nodes Altered mental status, likely secondary to above Chronic dysphagia and previous PEG tube placement Pancytopenia Hyponatremia, consider SIADH History of heart failure with reduced ejection fraction History of hyperlipidemia Diabetes mellitus, insulin-dependent Plan: The patient was seen and evaluated Labs and medications reviewed Sputum culture pending Remains on Zosyn Stable on room air oxygen Anticoagulated with Eliquis Normal saline at 50 mL/h Continued on Jevity tube feedings Aspiration precautions Scopolamine patch in place Prognosis is guarded Plan is for home with home care at discharge This patient was seen independently by the pulmonary nurse practitioner addressing pulmonary issues statement I have personally seen and examined the patient, performed the documentation and the assessment and plan as written. Number of minutes spent on the visit: 24 Dictation was produced using [employer] software. Please excuse any grammatical, word or spelling errors.
--- NOTE | 2024-12-21 11:50 | P.NPCON ---
History of Present Illness - Reason for Consult hyponatremia - History of Present Illness Patient is a 74-year-old male with history of type 2 diabetes, hypertension, coronary artery disease and CVA who is admitted to the hospital with history of fever and cough along with mental status changes. Patient has underlying history of oropharyngeal cancer and is maintained on tube feedings via PEG tube. Patient was noted to be in A-fib with RVR on initial admission. Status post treatment for pneumonia with antibiotics. Serum sodium was low at 128 on initial admission. It dropped down to 125 yesterday and is 127 today. Patient has been on IV fluids at about 50 cc an hour and received 1 dose of IV Lasix yesterday morning. He is also maintained on free water with tube feedings via PEG tube. No diarrhea or vomiting reported. Urine osmolality 621 and random urine sodium was 82 Past Medical History Past Medical History: Atrial Fibrillation, Cancer, Diabetes Mellitus, Hyperlipidemia, Myocardial Infarction (CA) Additional Past Medical History / Comment(s): Spine CA C1/C2, CVA, Last Myocardial Infarction Date:: 2010 History of Any Multi-Drug Resistant Organisms: None Reported Past Surgical History: Joint Replacement Additional Past Surgical History / Comment(s): Peg tube, Past Anesthesia/Blood Transfusion Reactions: No Reported Reaction Past Psychological History: No Psychological Hx Reported Smoking Status: Never smoker Past Alcohol Use History: None Reported Past Drug Use History: None Reported - Past Family History Father Family Medical History: No Reported History Mother Family Medical History: No Reported History Brother(s) Additional Family Medical History / Comment(s): liver disease Medications and Allergies Home Medications Medication Instructions Recorded Confirmed Type Atorvastatin [Lipitor] 20 mg PEG/G-TUBE HS 07/21/24 12/17/24 History HYDROcodone/APAP 10-325MG [[place] 1 tab PEG/G-TUBE QID PRN 07/21/24 12/17/24 History 10-325] Ondansetron Odt [Zofran ODT] 8 mg PEG/G-TUBE Q8H PRN 10/12/24 12/17/24 History Apixaban [Eliquis] 5 mg PEG/G-TUBE BID #28 tab 10/20/24 12/17/24 Rx ALPRAZolam [Xanax] 0.5 mg PEG/G-TUBE DAILY 11/22/24 12/17/24 History Insulin Aspart [NovoLOG Flexpen] See Protocol SQ ACHS PRN 11/22/24 12/17/24 History Insulin Glargine,Hum.rec.anlog 8 units SQ BID 11/22/24 12/17/24 History [Lantus Solostar Pen] Omeprazole [PriLOSEC] 20 mg PEG/G-TUBE DAILY 11/22/24 12/17/24 History Metoprolol Tartrate [Lopressor] 25 mg PEG/G-TUBE BID #90 tab 11/25/24 12/17/24 Rx Furosemide [Lasix] 40 mg PEG/G-TUBE DAILY PRN 12/17/24 12/17/24 History Potassium Chloride Oral Liquid 20 meq PO DAILY PRN 12/17/24 12/17/24 History Allergies Allergy/AdvReac Type Severity Reaction Status Date / Time Mushroom Allergy Unknown Verified 12/17/24 19:11 mushroom Allergy Unknown Verified 12/17/24 19:11 Physical Exam Vitals: Vital Signs Temp Pulse Resp BP Pulse Ox 12/21/24 07:52 98.9 F 118 H 19 111/68 97 12/21/24 04:00 98.7 F 12/21/24 00:08 100.7 F H 109 H 18 108/60 98 12/20/24 20:00 18 12/20/24 18:58 98.7 F 97 18 100/64 94 L 12/20/24 15:44 99 96/63 12/20/24 14:41 99.3 F 12/20/24 13:46 101.2 F H 118 H 20 91/52 12/20/24 12:41 101.5 F H 121 H 24 99/58 93 L Intake and Output 12/20/24 12/21/24 12/21/24 22:59 06:59 14:59 Intake Total 720 Output Total 500 Balance -500 720 Intake: Tube Feeding 720 Output: Urine 500 Other: Voiding Method Diaper External Catheter # Voids 3 # Bowel Movements 1 Weight 77.5 kg Patient is sleeping but arousable. He appears lethargic. No acute distress Examination of the heart S1 and S2 Examination of the lungs bilateral breath sounds are heard Abdomen is soft nontender, PEG tube in place Examination of lower extremities shows no evidence of edema GAS JOCKEY exam shows patient is moving all 4 extremities. Results - Lab Results Most recent lab results Calcium 7.4 mg/dL (8.4-10.2) L 12/21/24 09:18 Magnesium 1.7 mg/dL (1.6-2.3) 12/17/24 15:35 12/21/24 09:18 12/21/24 09:18 Assessment and Plan Assessment: 1. Hyponatremia, currently euvolemic, status post IV fluids and 1 dose of Lasix yesterday. Sodium improved to 125 today. I will hold off on IV fluids and decrease free water with tube feedings. Since blood pressure is low patient may benefit from sodium chloride tabs. Urine osmolality at 621 with urine sodium at 82 suggesting possible underlying SIADH. 2. Pneumonia maintained on antibiotics 3. A-fib/flutter maintained on Eliquis and Lopressor 4. History of CVA Plan: Hold IV fluids Repeat sodium later on this evening Decrease free water with tube feedings Consider sodium chloride tabs if serum sodium worsens. Thank you for the consultation. We will continue to follow the patient with you during his hospitalization.
[2024-12-21 11:52] LABS: Sodium 124.0 mmol/L (137-145)
[2024-12-21 12:14] LABS: Glucose,Whole Blood 239 mg/dL (70-110)
--- NOTE | 2024-12-21 13:09 | P.PN ---
Subjective Progress Note Date: 12/21/24 Hospital course 74 year old M with PMH A-Fib, head and neck CA with PEG, CAD, systolic CHF, DM, HLD presents to the ED for lethargy, fever, wet cough and episodes of choking. In the ED he underwent extensive evaluation. BP 88/60, HR 76, T 97.2F, RR 18, 94% on RA. Labs significant for WBC 3.31, RBC 2.82, Hg 10.1, Hct 28.7, MCV 101.8, Plt 111, Na 128, Cl 92, BUN 29, Cr 0.46, glu 183, Lactic acid 2.3-1.7, T. Bili 1.9, alb 3. Amylase 41, Lipiase 43. UA neg LE or nitrite. COVID, RSV, Flu neg. EKG A-Fib with RVR rate 141. CXR showed bilateral infiltrates. Patient was started on Cardizem drip + Rocephin/Azithromycin and admitted for further workup and management. Subjective Patient seen this morning. is at bedside. Per patient appears more awake today. states that patient had his radiation therapy today. Physical exam General examination - Alert and Oriented 3 in NAD Heart - + S1S2 no murmurs Lungs -diminished breath sounds bilaterally Abdomen soft NT ND +ve BS, + PEG tube Extremities - No edema [employer] - Moving all 4 extremities spontaneously Psych -slow to answer questions Assessment and plan Sepsis and acute hypoxic respiratory failure secondary to aspiration PNA: Continue Zosyn 3.75 g IV TID (D4). Legionella Ag neg. Procal 0.35 Follow BCx, Sputum Cx. Elevated HOB + Aspiration precautions. Neurology following. I discussed with the to avoid even giving ice chips. Patient continued to have high-grade fevers of 100.7. I suspect fevers may also be due to fever of unknown origin from malignancy. Will consult infectious disease AFib with RVR: Cardizem drip discontinued. Metoprolol 25 mg PEG BID to TID. Eliquis 5 mg PEG BID. Cardiology signed off. Pancytopenia suspect due to malignancy: signs of active bleeding. Transfuse if Hg < 7 or Plt < 10. Heme-Onc on board. DM with hyperglycemia: Tube feeds resumed. POC glucose Q6H. Start MISS. Hypoglycemic precautions. Hypovolemic hyponatremia: Nephrology on board Reviewed notes from police communications dispatcher recommending to hold IV fluids Room was 127 and then repeat sodium was 124. CAD: Lipitor 20 mg PEG QHS. Metoprolol and Eliquis Systolic CHF: Not in acute exacerbation. Metoprolol as above. May benefit from ACEi + K sparing diuretic when improved. Head and neck CA with Pancytopenia: Discussed with oncology. Patient has a poor prognosis. is aware that his radiation therapy is palliative. Patient's last day of radiation therapy is 12/25/2024. I do not believe at this time and patient are ready for hospice. Will defer hospice discussions to oncology service. Resolved: Hypoglycemia, Lactic acidosis CODE STATUS: FULL CODE DVT Prophylaxis: Eliquis GI Prophylaxis: Protonix IV Designated medical POA if patient is not able to make medical decisions for themselves: . Objective - Vital Signs Vital signs: Vital Signs Temp 98.9 F 12/21/24 07:52 Pulse 118 H 12/21/24 08:00 Resp 19 12/21/24 08:00 BP 111/68 12/21/24 07:52 Pulse Ox 97 12/21/24 07:52 FiO2 Intake & Output 12/20/24 12/21/24 12/21/24 18:59 06:59 18:59 Intake Total 720 Output Total 900 Balance -900 720 Weight 77.5 kg Intake: Tube Feeding 720 Output: Urine 900 Other: Voiding Method Urinal Diaper Diaper Incontinent External Catheter External Catheter # Voids 3 # Bowel Movements 1 - Labs CBC & Chem 7: 12/21/24 09:18 12/21/24 11:02 Labs: Abnormal Lab Results - Last 24 Hours (Table) 12/20/24 12/20/24 12/21/24 Range/Units 17:34 23:58 05:29 WBC (4.50-10.00) 10*3/uL RBC (4.40-5.60) 10*6/uL Hgb (13.0-17.0) g/dL Hct (39.6-50.0) % MCV (80.0-97.0) fL MCH (27.0-32.0) pg RDW (11.5-14.5) % Plt Count (140-440) 10*3/uL Neutrophils # (1.80-7.70) 10*3/uL Monocytes # (0.20-1.00) 10*3/uL Eosinophils # (0.04-0.35) 10*3/uL Sodium (137-145) mmol/L Chloride (98-107) mmol/L Creatinine (0.66-1.25) mg/dL Glucose (74-99) mg/dL POC Glucose (mg/dL) 140 H 190 H 167 H (70-110) mg/dL Calcium (8.4-10.2) mg/dL C-Reactive Protein (<1.0) mg/dL Cortisol (3.1-22.4) UG/DL 12/21/24 12/21/24 12/21/24 Range/Units 05:34 09:18 09:18 WBC 3.10 L (4.50-10.00) 10*3/uL RBC 2.68 L (4.40-5.60) 10*6/uL Hgb 9.2 L D (13.0-17.0) g/dL Hct 27.9 L (39.6-50.0) % MCV 104.1 H (80.0-97.0) fL MCH 34.3 H (27.0-32.0) pg RDW 15.8 H (11.5-14.5) % Plt Count 74 L (140-440) 10*3/uL Neutrophils # 1.73 L (1.80-7.70) 10*3/uL Monocytes # 0.14 L (0.20-1.00) 10*3/uL Eosinophils # 0.02 L (0.04-0.35) 10*3/uL Sodium 127 L (137-145) mmol/L Chloride 93 L (98-107) mmol/L Creatinine 0.39 L (0.66-1.25) mg/dL Glucose 190 H (74-99) mg/dL POC Glucose (mg/dL) (70-110) mg/dL Calcium 7.4 L (8.4-10.2) mg/dL C-Reactive Protein (<1.0) mg/dL Cortisol 2.6 L (3.1-22.4) UG/DL 12/21/24 12/21/24 Range/Units 11:02 11:45 WBC (4.50-10.00) 10*3/uL RBC (4.40-5.60) 10*6/uL Hgb (13.0-17.0) g/dL Hct (39.6-50.0) % MCV (80.0-97.0) fL MCH (27.0-32.0) pg RDW (11.5-14.5) % Plt Count (140-440) 10*3/uL Neutrophils # (1.80-7.70) 10*3/uL Monocytes # (0.20-1.00) 10*3/uL Eosinophils # (0.04-0.35) 10*3/uL Sodium 124 L (137-145) mmol/L Chloride (98-107) mmol/L Creatinine (0.66-1.25) mg/dL Glucose (74-99) mg/dL POC Glucose (mg/dL) 239 H (70-110) mg/dL Calcium (8.4-10.2) mg/dL C-Reactive Protein 24.8 H (<1.0) mg/dL Cortisol (3.1-22.4) UG/DL Microbiology - Last 24 Hours (Table) 12/20/24 17:19 Gram Stain - Preliminary Sputum 12/17/24 17:20 Blood Culture - Preliminary Blood
[2024-12-21 17:45] LABS: Glucose,Whole Blood 243 mg/dL (70-110)
--- NOTE | 2024-12-21 18:12 | P.PN ---
Subjective Progress Note Date: 12/21/24 Principal diagnosis: Pneumonia, weakness. Recurrent head/neck malignancy In f/u today pt cont to be very lethargic, he is fairly oriented when awake, falls back to sleep very quickly. He cont on radiation at this time. He seems to be handling his secretions a little better today Objective - Vital Signs Vital signs: Vital Signs Temp 98.8 F 12/21/24 13:14 Pulse 108 H 12/21/24 13:14 Resp 19 12/21/24 13:14 BP 91/59 12/21/24 13:14 Pulse Ox 96 12/21/24 13:14 FiO2 Intake & Output 12/20/24 12/21/24 12/21/24 18:59 06:59 18:59 Intake Total 720 1440 Output Total 900 Balance -166 289 3225 Weight 77.5 kg 77.5 kg Intake: Tube Feeding 720 1440 Output: Urine 900 Other: Voiding Method Urinal Diaper Diaper Incontinent External Catheter External Catheter # Voids 3 # Bowel Movements 1 - Constitutional General appearance: Present: average body habitus, cooperative, no acute distr ess - EENT EENT Comment(s): tongue has thick coating, this is slightly improved, no ulcerations, lots of mucus in the oral space Eyes: Present: anicteric sclerae, EOMI ENT: Present: hearing grossly normal - Respiratory Respiratory: bilateral: diminished, rales (scattered) - Cardiovascular Rhythm: regular - Integumentary Integumentary: Present: pale - Musculoskeletal Musculoskeletal: Present: generalized weakness - Labs CBC & Chem 7: 12/21/24 09:18 12/21/24 17:11 Labs: Abnormal Lab Results - Last 24 Hours (Table) 12/20/24 12/21/24 12/21/24 Range/Units 23:58 05:29 05:34 WBC (4.50-10.00) 10*3/uL RBC (4.40-5.60) 10*6/uL Hgb (13.0-17.0) g/dL Hct (39.6-50.0) % MCV (80.0-97.0) fL MCH (27.0-32.0) pg RDW (11.5-14.5) % Plt Count (140-440) 10*3/uL Neutrophils # (1.80-7.70) 10*3/uL Monocytes # (0.20-1.00) 10*3/uL Eosinophils # (0.04-0.35) 10*3/uL Sodium (137-145) mmol/L Chloride (98-107) mmol/L Creatinine (0.66-1.25) mg/dL Glucose (74-99) mg/dL POC Glucose (mg/dL) 190 H 167 H (70-110) mg/dL Calcium (8.4-10.2) mg/dL C-Reactive Protein (<1.0) mg/dL Cortisol 2.6 L (3.1-22.4) UG/DL 12/21/24 12/21/24 12/21/24 Range/Units 09:18 09:18 11:02 WBC 3.10 L (4.50-10.00) 10*3/uL RBC 2.68 L (4.40-5.60) 10*6/uL Hgb 9.2 L D (13.0-17.0) g/dL Hct 27.9 L (39.6-50.0) % MCV 104.1 H (80.0-97.0) fL MCH 34.3 H (27.0-32.0) pg RDW 15.8 H (11.5-14.5) % Plt Count 74 L (140-440) 10*3/uL Neutrophils # 1.73 L (1.80-7.70) 10*3/uL Monocytes # 0.14 L (0.20-1.00) 10*3/uL Eosinophils # 0.02 L (0.04-0.35) 10*3/uL Sodium 127 L 124 L (137-145) mmol/L Chloride 93 L (98-107) mmol/L Creatinine 0.39 L (0.66-1.25) mg/dL Glucose 190 H (74-99) mg/dL POC Glucose (mg/dL) (70-110) mg/dL Calcium 7.4 L (8.4-10.2) mg/dL C-Reactive Protein 24.8 H (<1.0) mg/dL Cortisol (3.1-22.4) UG/DL 12/21/24 12/21/24 12/21/24 Range/Units 11:45 17:11 17:43 WBC (4.50-10.00) 10*3/uL RBC (4.40-5.60) 10*6/uL Hgb (13.0-17.0) g/dL Hct (39.6-50.0) % MCV (80.0-97.0) fL MCH (27.0-32.0) pg RDW (11.5-14.5) % Plt Count (140-440) 10*3/uL Neutrophils # (1.80-7.70) 10*3/uL Monocytes # (0.20-1.00) 10*3/uL Eosinophils # (0.04-0.35) 10*3/uL Sodium 126 L (137-145) mmol/L Chloride (98-107) mmol/L Creatinine (0.66-1.25) mg/dL Glucose (74-99) mg/dL POC Glucose (mg/dL) 239 H 243 H (70-110) mg/dL Calcium (8.4-10.2) mg/dL C-Reactive Protein (<1.0) mg/dL Cortisol (3.1-22.4) UG/DL Microbiology - Last 24 Hours (Table) 12/20/24 17:19 Gram Stain - Preliminary Sputum 12/17/24 17:20 Blood Culture - Preliminary Blood Assessment and Plan (1) Head and neck cancer Current Visit: No Status: Acute Priority: High Code(s): C76.0 - MALIGNANT NEOPLASM OF HEAD, FACE AND NECK SNOMED Code(s): 617594603 (2) Atrial fibrillation with RVR Current Visit: Yes Status: Acute Priority: High Code(s): I48.91 - UN SPECIFIED ATRIAL FIBRILLATION SNOMED Code(s): 261129010060468 (3) Pneumonia Current Visit: Yes Status: Acute Priority: High Code(s): J18.9 - PNEUMONI A, UNSPECIFIED ORGANISM SNOMED Code(s): 580766875 (4) Weak Current Visit: Yes Status: Acute Priority: High Code(s): R53.1 - WEAKNESS SNOMED Code(s): 04724843 Plan: Recurrent head neck malignancy - Patient has had a recurrence of his malignancy within a few months of completing initial definitive treatment. The neck mass is growing up and compressing the brain. Patient is currently receiving radiation for palliation. -Discussed case with IM-concerns for persistent fevers despite antibiotics. Fever from malignancy vs a neurological phenomenon from compression from the mass? -Reviewed concerns with pt and . Concerns also for pt weakness, ability to tolerate any form of treatment, ability to get back and forth to appointments. -Later in the day case discussed with Radiation Oncologist. Patient has had 29 of 35 planned radiation treatments. Recommendation is for imaging about 2 months after completion of radiation to assess. Ideally, systemic chemotherapy would be initiated soon after completion of radiation but, patient is very weak and would need rehabilitation to become strong enough to be able to tolerate treatment, even to get back and forth to treatment. Another challenge to treatment is that immunotherapy was going to be offered as a treatment option. Immunotherapy can take 3 months before the effects of treatment can be appreciated. Patient does not appear at this time to have the strength to do the treatment, let alone trying to do treatment for several months in hopes of having a positive effect from treatment. Will revisit this pt and to see what their thoughts are. Pt mentioned a broken tooth. May have to consider anaerobic coverage. Not certain if a LP would provide any useful info or be a source of fever. Defer medical mgmt to IM
[2024-12-21] MEDS: SODIUM CHLORIDE TAB 1 GM TAB PO SCH (22:28)
--- NOTE | 2024-12-21 22:34 | P.CONS ---
History of Present Illness - Reason for Consult Consult date: 12/21/24 Fever Requesting physician: Vipul Kiran - Chief Complaint Nausea and vomiting x few days - History of Present Illness Patient is a 74-year-old male with a past medical history significant for Atrial Fibrillation, Cancer, Diabetes Mellitus, Hyperlipidemia, Myocardial Infarction (PA) he did have cancer of the cervical spine C1-C2 for the patient has received chemo completed in June 2024 and has received radiation therapy patient seem to have a problem with the swallowing and currently do have a PEG tube patient was brought into the hospital 4 days ago for evaluation of nausea vomiting along with weakness in this patient symptom was going on for about few days before the patient has been brought to the hospital patient noted to have low blood pressure in the bed was complaining some abdominal discomfort on presentation to the hospital patient was afebrile however he did start spiking fever on 12/19/2024 with a temperature of 100.5 F and yesterday afternoon the patient did have a temperature of 101.5 degrees for his temperature of 100.8 at midnight patient has been afebrile since then patient was tachycardic but not hypotensive or hypoxic no need for supplemental oxygen patient did have a white count of 3.10 creatinine 0.39 sodium is low did have elevated lactic acid admission resolved liver enzymes are normal UA has been negative influenza RSV COVID testing has been negative patient did have chest x-ray similar bibasilar patchy airspace opacity concerning for pneumonia versus atelectasis patient being treated with Zosyn infectious disease was consulted today for further management of antibiotic because of his fever most information has been obtained from the at the bedside patient is awake but specifically denies any heada deepika or URI symptoms no further nausea vomiting has been reported no chest pain he did have some cough with occasional sputum production no choking on the food currently getting more sleep tube feedings and no diarrhea reported by the nursing staff Review of Systems Positive point and negatives has been mentioned in the HPI, complete review of systems was performed and all other systems are negative Past Medical History Past Medical History: Atrial Fibrillation, Cancer, Diabetes Mellitus, Hyperlipidemia, Myocardial Infarction (PA) Additional Past Medical History / Comment(s): Spine CA C1/C2, CVA, Last Myocardial Infarction Date:: 2010 History of Any Multi-Drug Resistant Organisms: None Reported Past Surgical History: Joint Replacement Additional Past Surgical History / Comment(s): Peg tube, Past Anesthesia/Blood Transfusion Reactions: No Reported Reaction Past Psychological History: No Psychological Hx Reported Smoking Status: Never smoker Past Alcohol Use History: None Reported Past Drug Use History: None Reported - Past Family History Father Family Medical History: No Reported History Mother Family Medical History: No Reported History Brother(s) Additional Family Medical History / Comment(s): liver disease Medications and Allergies Home Medications Medication Instructions Recorded Confirmed Type Atorvastatin [Lipitor] 20 mg PEG/G-TUBE HS 07/21/24 12/17/24 History HYDROcodone/APAP 10-325MG [Bonnie 1 tab PEG/G-TUBE QID PRN 07/21/24 12/17/24 History 10-325] Ondansetron Odt [Zofran ODT] 8 mg PEG/G-TUBE Q8H PRN 10/12/24 12/17/24 History Apixaban [Eliquis] 5 mg PEG/G-TUBE BID #28 tab 10/20/24 12/17/24 Rx ALPRAZolam [Xanax] 0.5 mg PEG/G-TUBE DAILY 11/22/24 12/17/24 History Insulin Aspart [NovoLOG Flexpen] See Protocol SQ ACHS PRN 11/22/24 12/17/24 History Insulin Glargine,Hum.rec.anlog 8 units SQ BID 11/22/24 12/17/24 History [Lantus Solostar Pen] Omeprazole [PriLOSEC] 20 mg PEG/G-TUBE DAILY 11/22/24 12/17/24 History Metoprolol Tartrate [Lopressor] 25 mg PEG/G-TUBE BID #90 tab 11/25/24 12/17/24 Rx Furosemide [Lasix] 40 mg PEG/G-TUBE DAILY PRN 12/17/24 12/17/24 History Potassium Chloride Oral Liquid 20 meq PO DAILY PRN 12/17/24 12/17/24 History Allergies Allergy/AdvReac Type Severity Reaction Status Date / Time Mushroom Allergy Unknown Verified 12/17/24 19:11 mushroom Allergy Unknown Verified 12/17/24 19:11 Physical Exam Vitals: Vital Signs Temp Pulse Resp BP Pulse Ox 12/21/24 07:52 98.9 F 118 H 19 111/68 97 12/21/24 04:00 98.7 F 12/21/24 00:08 100.7 F H 109 H 18 108/60 98 12/20/24 20:00 18 12/20/24 18:58 98.7 F 97 18 100/64 94 L 12/20/24 15:44 99 96/63 12/20/24 14:41 99.3 F 12/20/24 13:46 101.2 F H 118 H 20 91/52 12/20/24 12:41 101.5 F H 121 H 24 99/58 93 L Intake and Output 12/20/24 12/21/24 12/21/24 22:59 06:59 14:59 Intake Total 720 Output Total 500 Balance -500 720 Intake: Tube Feeding 720 Output: Urine 500 Other: Voiding Method Diaper External Catheter # Voids 3 # Bowel Movements 1 Weight 77.5 kg GENERAL DESCRIPTION: Elderly male lying in bed, no distress. No tachypnea or accessory muscle of respiration use. HEENT: Shows Pallor , no scleral icterus. Oral mucous membrane is dry. NECK: Trachea central, no thyromegaly. LUNGS: Unlabored breathing. Decreased breath sound at base HEART: S1, S2, regular rate and rhythm. No loud murmur ABDOMEN: Soft, no tenderness , guarding or rigidity, no organomegaly EXTREMITIES: No edema of feet. SKIN: No rash, no masses palpable. NEUROLOGICAL: The patient is awake, mood and affect normal. Results CBC & Chem 7: 12/21/24 09:18 12/21/24 17:11 Labs: Abnormal Lab Results - Last 24 Hours (Table) 12/20/24 12/20/24 12/20/24 Range/Units 12:28 17:34 23:58 WBC (4.50-10.00) 10*3/uL RBC (4.40-5.60) 10*6/uL Hgb (13.0-17.0) g/dL Hct (39.6-50.0) % MCV (80.0-97.0) fL MCH (27.0-32.0) pg RDW (11.5-14.5) % Plt Count (140-440) 10*3/uL Sodium (137-145) mmol/L Chloride (98-107) mmol/L Creatinine (0.66-1.25) mg/dL Glucose (74-99) mg/dL POC Glucose (mg/dL) 214 H 140 H 190 H (70-110) mg/dL Calcium (8.4-10.2) mg/dL Cortisol (3.1-22.4) UG/DL 12/21/24 12/21/24 12/21/24 Range/Units 05:29 05:34 09:18 WBC 3.10 L (4.50-10.00) 10*3/uL RBC 2.68 L (4.40-5.60) 10*6/uL Hgb 9.2 L D (13.0-17.0) g/dL Hct 27.9 L (39.6-50.0) % MCV 104.1 H (80.0-97.0) fL MCH 34.3 H (27.0-32.0) pg RDW 15.8 H (11.5-14.5) % Plt Count 74 L (140-440) 10*3/uL Sodium (137-145) mmol/L Chloride (98-107) mmol/L Creatinine (0.66-1.25) mg/dL Glucose (74-99) mg/dL POC Glucose (mg/dL) 167 H (70-110) mg/dL Calcium (8.4-10.2) mg/dL Cortisol 2.6 L (3.1-22.4) UG/DL 12/21/24 Range/Units 09:18 WBC (4.50-10.00) 10*3/uL RBC (4.40-5.60) 10*6/uL Hgb (13.0-17.0) g/dL Hct (39.6-50.0) % MCV (80.0-97.0) fL MCH (27.0-32.0) pg RDW (11.5-14.5) % Plt Count (140-440) 10*3/uL Sodium 127 L (137-145) mmol/L Chloride 93 L (98-107) mmol/L Creatinine 0.39 L (0.66-1.25) mg/dL Glucose 190 H (74-99) mg/dL POC Glucose (mg/dL) (70-110) mg/dL Calcium 7.4 L (8.4-10.2) mg/dL Cortisol (3.1-22.4) UG/DL Microbiology - Last 24 Hours (Table) 12/20/24 17:19 Gram Stain - Preliminary Sputum 12/17/24 17:20 Blood Culture - Preliminary Blood Assessment and Plan (1) Pneumonia Current Visit: Yes Status: Acute Priority: High Code(s): J18.9 - PNEUMONI A, UNSPECIFIED ORGANISM SNOMED Code(s): 562611922 (2) Sepsis Current Visit: Yes Status: Acute Priority: High Code(s): A41.9 - SEPSIS, UNSPECIFIED ORGANISM SNOMED Code(s): 35653967 Plan: 1patient with a fever in this patient who did have a history of C1-C2 cervical spine cancer status post chemoradiation therapy did have difficulty swallowing requiring PEG tube placement admitted to the hospital 4 days ago predominantly with nausea vomiting and some abdominal discomfort and there is concern for possible aspiration pneumonitis with the lack etiology however abdominal source not entirely excluded 2-we will go ahead check a sputum for Gram stain culture check a CRP and a procalcitonin level 3-we will obtain a CT of abdominal pelvis with contrast to rule out any intra- abdominal source that should also evaluate the lower lungs for any consolidation 4-will empirically treat the patient with Zosyn while waiting for the workup to be completed at the bedside question answered We will follow on clinical condition and cultures to further adjust medication if needed Thank you for this consultation we will follow the patient along with you Dictation was produced using [employer] dictation software. please excuse any grammatical, word or spelling errors. Time with Patient: Greater than 30
[2024-12-21 23:24] LABS: Glucose,Whole Blood 230 mg/dL (70-110)
[2024-12-22] MEDS: IPRATROPIUM-ALBUTEROL 3 ML NEB INHALATION PRN (03:35)
--- NOTE | 2024-12-22 04:22 | XR ---
EXAM: XR Chest, 1 View CLINICAL HISTORY: ITS.REASON XR Reason: Hypoxia/Congestion TECHNIQUE: Frontal view of the chest. COMPARISON: 12/20/2024 IMPRESSION: 1. Cardiomegaly with mild interstitial changes which can be seen with mild interstitial pulmonary edema. This is similar compared to prior study.
[2024-12-22 05:41] LABS: Glucose,Whole Blood 254 mg/dL (70-110)
[2024-12-22] MEDS: DEXTROSE 5% IN WATER 100 ML with AMIODARONE 150 MG IV ONE (05:52)
[2024-12-22] MEDS: AMIODARONE 360 MG in DEXTROSE 5% IN WATER 200 ML IV ONE (05:53)
[2024-12-22 06:47] LABS: African American GFR (CKD) >90 (>60 ml/min/1.73 sqM); Anion Gap 4 mmol/L; Blood Urea Nitrogen 13 mg/dL (9-20); Calcium 6.9 mg/dL (8.4-10.2); Carbon Dioxide 27 mmol/L (22-30); Chloride 96 mmol/L (98-107); Glucose 224 mg/dL (74-99); Non-African American GFR(CKD) >90 (>60 ml/min/1.73 sqM); Potassium 3.4 mmol/L (3.5-5.1); Sodium 127 mmol/L (137-145)
[2024-12-22 07:43] LABS: Basophils # (A) 0.01 10*3/uL (0.00-0.10); Basophils % (A) 0.6 %; Eosinophils # (A) 0.01 10*3/uL (0.04-0.35); Eosinophils % (A) 0.6 %; HCT 20.2 % (39.6-50.0); Lymphocytes # (A) 0.38 10*3/uL (0.90-5.00); Lymphocytes % (A) 21.2 %; MCH 35.5 pg (27.0-32.0); MCHC 34.7 g/dL (32.0-37.0); MCV 102.5 fL (80.0-97.0); Monocytes # (A) 0.07 10*3/uL (0.20-1.00); Monocytes % (A) 3.9 %; Neutrophils # (A) 1.30 10*3/uL (1.80-7.70); Neutrophils % (A) 72.6 %; RBC 1.97 10*6/uL (4.40-5.60); RDW 15.8 % (11.5-14.5); WBC 1.79 10*3/uL (4.50-10.00)
[2024-12-22 08:00] LABS: HGB 7.0 g/dL (13.0-17.0)
[2024-12-22] MEDS: SODIUM CHLORIDE 0.9% 500 ML 500 ML IV ONE (09:00)
[2024-12-22] MEDS: IOPAMIDOL CONTRAST (ORAL USE) VIAL PO PRN (09:06)
[2024-12-22] MEDS: POTASSIUM BICARBONATE/CIT AC 20 MEQ TABLET.EFF PO ONE (09:21)
[2024-12-22 09:37] LABS: Platelet Count 51 10*3/uL (140-440)
--- NOTE | 2024-12-22 10:35 | P.PN ---
Subjective Progress Note Date: 12/22/24 Hospital course 74 year old M with PMH A-Fib, head and neck CA with PEG, CAD, systolic CHF, DM, HLD presents to the ED for lethargy, fever, wet cough and episodes of choking. In the ED he underwent extensive evaluation. BP 88/60, HR 76, T 97.2F, RR 18, 94% on RA. Labs significant for WBC 3.31, RBC 2.82, Hg 10.1, Hct 28.7, MCV 101.8, Plt 111, Na 128, Cl 92, BUN 29, Cr 0.46, glu 183, Lactic acid 2.3-1.7, T. Bili 1.9, alb 3. Amylase 41, Lipiase 43. UA neg LE or nitrite. COVID, RSV, Flu neg. EKG A-Fib with RVR rate 141. CXR showed bilateral infiltrates. Patient was started on Cardizem drip + Rocephin/Azithromycin and admitted for further workup and management. Subjective Last night patient was moved to the ICU due to A-fib with RVR. He is 3 S. oral floor. Patient seen this morning. His heart rate is now controlled. Patient does appear to be worse today compared to yesterday. He did have a fever 100.6 this morning. was at bedside. I encouraged the to discuss goals of care with her . 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 Legionella Ag neg. Procal 0.35 Follow BCx, Sputum Cx. Elevated HOB + Aspiration precautions. Pulmonology following Patient continued to have persistent high-grade fevers which could be due to malignancy versus recurrent silent aspirations. ID was consulted for persistent fevers. ID ordered CT abdomen and pelvis. AFib with RVR: Patient is back in A-fib with RVR. He is currently on amiodarone drip. Metoprolol 25 mg PEG BID to TID. Eliquis 5 mg PEG BID. Reconsult cardiology Pancytopenia suspect due to malignancy: signs of active bleeding. Transfuse if Hg < 7 or Plt < 10. Heme-Onc on board. This morning patient's WBC is 1.79, hemoglobin is 7.0 platelet count is pending. These numbers are a drop from yesterday however stable from compared to the day before. I suspect the blood draw from yesterday was an error. Will continue to monitor CBC closely. DM with hyperglycemia: Tube feeds resumed. POC glucose Q6H. Start MISS. Hypoglycemic precautions. 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 Metoprolol and Eliquis Systolic CHF: Not in acute exacerbation. Metoprolol as above. May benefit from ACEi + K sparing diuretic when improved. Head and neck CA with Pancytopenia: Discussed with oncology. Patient has a poor prognosis. is aware that his radiation therapy is palliative. Patient's last day of radiation therapy is 12/25/2024. Patient has been getting radiation therapy while in the hospital. I would recommend holding off on today since patient is on amiodarone drip. I do not believe at this time and patient are ready for hospice. Will defer hospice discussions to oncology service. Resolved: Hypoglycemia, Lactic acidosis CODE STATUS: FULL CODE DVT Prophylaxis: Eliquis GI Prophylaxis: Protonix IV Designated medical POA if patient is not able to make medical decisions for themselves: . Patient's prognosis is guarded. Objective - Vital Signs Vital signs: Vital Signs Temp 98 F 12/22/24 08:00 Pulse 89 12/22/24 08:00 Resp 19 12/22/24 08:00 BP 112/62 12/22/24 08:00 Pulse Ox 95 12/22/24 08:00 FiO2 Intake & Output 12/21/24 12/22/24 12/22/24 18:59 06:59 18:59 Intake Total 1440 720 240 Output Total 400 Balance 1040 720 240 Weight 77.5 kg 78.5 kg Intake: Tube Feeding 1440 720 240 Output: Urine 400 Other: Voiding Method Diaper Diaper Diaper External Catheter External Catheter External Catheter # Voids 2 1 - Labs CBC & Chem 7: 12/22/24 07:33 12/22/24 06:01 Labs: Abnormal Lab Results - Last 24 Hours (Table) 07/10/25 07/10/25 07/10/25 Range/Units 09:18 11:02 11:45 WBC (4.50-10.00) 10*3/uL RBC (4.40-5.60) 10*6/uL Hgb (13.0-17.0) g/dL Hct (39.6-50.0) % MCV (80.0-97.0) fL MCH (27.0-32.0) pg Plt Count (140-440) 10*3/uL Neutrophils # 1.73 L (1.80-7.70) 10*3/uL Lymphocytes # (0.90-5.00) 10*3/uL Monocytes # 0.14 L (0.20-1.00) 10*3/uL Eosinophils # 0.02 L (0.04-0.35) 10*3/uL Sodium 124 L (137-145) mmol/L Potassium (3.5-5.1) mmol/L Chloride (98-107) mmol/L Creatinine (0.66-1.25) mg/dL Glucose (74-99) mg/dL POC Glucose (mg/dL) 239 H (70-110) mg/dL Calcium (8.4-10.2) mg/dL C-Reactive Protein 24.8 H (<1.0) mg/dL Cortisol (3.1-22.4) UG/DL 12/21/24 12/21/24 12/21/24 Range/Units 17:11 17:11 17:43 WBC (4.50-10.00) 10*3/uL RBC (4.40-5.60) 10*6/uL Hgb (13.0-17.0) g/dL Hct (39.6-50.0) % MCV (80.0-97.0) fL MCH (27.0-32.0) pg Plt Count (140-440) 10*3/uL Neutrophils # (1.80-7.70) 10*3/uL Lymphocytes # (0.90-5.00) 10*3/uL Monocytes # (0.20-1.00) 10*3/uL Eosinophils # (0.04-0.35) 10*3/uL Sodium 126 L (137-145) mmol/L Potassium (3.5-5.1) mmol/L Chloride (98-107) mmol/L Creatinine (0.66-1.25) mg/dL Glucose (74-99) mg/dL POC Glucose (mg/dL) 243 H (70-110) mg/dL Calcium (8.4-10.2) mg/dL C-Reactive Protein (<1.0) mg/dL Cortisol 2.9 L (3.1-22.4) UG/DL 12/21/24 12/22/24 12/22/24 Range/Units 23:22 05:40 06:01 WBC (4.50-10.00) 10*3/uL RBC (4.40-5.60) 10*6/uL Hgb (13.0-17.0) g/dL Hct (39.6-50.0) % MCV (80.0-97.0) fL MCH (27.0-32.0) pg Plt Count (140-440) 10*3/uL Neutrophils # (1.80-7.70) 10*3/uL Lymphocytes # (0.90-5.00) 10*3/uL Monocytes # (0.20-1.00) 10*3/uL Eosinophils # (0.04-0.35) 10*3/uL Sodium 127 L (137-145) mmol/L Potassium 3.4 L (3.5-5.1) mmol/L Chloride 96 L (98-107) mmol/L Creatinine 0.34 L (0.66-1.25) mg/dL Glucose 224 H (74-99) mg/dL POC Glucose (mg/dL) 230 H 254 H (70-110) mg/dL Calcium 6.9 L (8.4-10.2) mg/dL C-Reactive Protein (<1.0) mg/dL Cortisol (3.1-22.4) UG/DL 12/22/24 Range/Units 07:33 WBC 1.79 L (4.50-10.00) 10*3/uL RBC 1.97 L (4.40-5.60) 10*6/uL Hgb 7.0 L D (13.0-17.0) g/dL Hct 20.2 L (39.6-50.0) % MCV 102.5 H (80.0-97.0) fL MCH 35.5 H (27.0-32.0) pg Plt Count 51 L (140-440) 10*3/uL Neutrophils # 1.30 L (1.80-7.70) 10*3/uL Lymphocytes # 0.38 L (0.90-5.00) 10*3/uL Monocytes # 0.07 L (0.20-1.00) 10*3/uL Eosinophils # 0.01 L (0.04-0.35) 10*3/uL Sodium (137-145) mmol/L Potassium (3.5-5.1) mmol/L Chloride (98-107) mmol/L Creatinine (0.66-1.25) mg/dL Glucose (74-99) mg/dL POC Glucose (mg/dL) (70-110) mg/dL Calcium (8.4-10.2) mg/dL C-Reactive Protein (<1.0) mg/dL Cortisol (3.1-22.4) UG/DL Microbiology - Last 24 Hours (Table) 12/20/24 17:19 Gram Stain - Preliminary Sputum
--- NOTE | 2024-12-22 11:01 | CT ---
EXAMINATION TYPE: CT abdomen pelvis w con DATE OF EXAM: 12/22/2024 10:44 AM COMPARISON: CT abdomen pelvis most recent from 07/13/2024 CLINICAL INDICATION: Male, 74 years old with history of Fever nausea and vomiting; fever, nausea, vom iting TECHNIQUE: Axial CT abdomen pelvis w con;Sagittal and coronal reformats were created on a separate w orkstation. Contrast used:100 mL of Isovue 300 with IV Contrast, (none if empty) Oral contrast used: with Oral Contrast (none if empty) CT DLP: 1410.6 mGycm, Automated exposure control for dose reduction was used. FINDINGS: LOWER CHEST: Patchy airspace opacities in the lung bases. ABDOMEN LIVER: Unremarkable GALLBLADDER AND BILE DUCTS: Unremarkable. PANCREAS: Unremarkable. SPLEEN: Unremarkable. ADRENAL GLANDS: Unremarkable. KIDNEYS AND URETERS: No evidence of hydronephrosis or obstructing renal calculus. The ureters are unr emarkable. PELVIS BLADDER: No evidence for wall thickening or mass given limitations of exam. REPRODUCTIVE: Unremarkable. ABDOMEN & PELVIS STOMACH AND BOWEL: No evidence of bowel obstruction. Scattered colonic diverticula. PERITONEUM/RETROPERITONEUM: No evidence of pneumoperitoneum or free fluid. VASCULATURE: No evidence of aortic aneurysm. MUSCULOSKELETAL: No acute osseous abnormalities. Right hip arthroplasty appears intact. Streak artifa ct limits evaluation of the pelvis. LYMPH NODES: No gross evidence for lymphadenopathy. SOFT TISSUE/ABDOMINAL WALL: fat-containing umbilical hernia. IMPRESSION: 1. Bibasilar patchy airspace opacities correlate for pneumonia. Correlate for aspiration pneumonia. 2. No evidence for bowel obstruction. 3. PEG tube in appropriate position. 4. Colonic diverticulosis. 5. Right hip arthroplasty in appropriate position. 6. Fat-containing umbilical hernia. [facility], , 12/22/2024 10:58 AM
--- NOTE | 2024-12-22 12:05 | P.PN ---
Subjective Progress Note Date: 12/22/24 Patient is a 74-year-old male with past medical history significant for head/neck cancer diagnosed back in April,. 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 Previously on carbo/Taxol, subsequently on Keytruda. PET scan from June, demonstr ating a 2.8 x 2.2 cm parapharyngeal mass. FDG avid left upper lobe pulmonary nodule. Since then, concerns for disease progression. MRI brain from Oct, 2024 showing a left pharyngeal mass larger than previous PET scan with extension through the jugular eason to the cerebellar pontine angle. With vasogenic edema in the adjacent cerebellum with some mass effect. Currently, undergoing radiation treatments. Also, takes oral Decadron. Chest CT angiogram from Oct, 2024 remarkable for increased size and number of pulmonary nodules. Largest nodule in the left upper lung measuring 2.1 cm. Additional multiple enlarged mediastinal lymph nodes. Did have issues with swallowing and did have a PEG tube placed at an outside facility. He has had multiple hospitalizations related to related complications of his cancer and treatments. He follows with his established oncologist Dr. De Jesus. Additional past medical history including hyperlipidemia, diabetes, atrial fibrillation, heart failure. Echocardiogram from July, estimating left ventricular ejection fraction of 45 to 50%. Patient currently being evaluated on the oncology unit. He is a poor historian. Apparently, brought into the emergency department back on 12/17/2024 for nausea, vomiting, and generalized weakness. Also, family was reporting fevers at home. Concerns of sepsis. While in the ED, noted to be in atrial fi brillation with RVR, started on Cardizem infusion for rate control. Blood pressure was marginal and the patient was fluid resuscitated with a total of 2.5 L of LR. Chest x-ray remarkable for cardiomegaly, pulmonary vascular congestion, and bibasilar airspace opacities. NT proBNP 2140. CBC with a WBC count of 3.47, hemoglobin 7.9 g/dL, platelets 91,000. CMP: Sodium 127, potassium 4.2, chloride 99, serum bicarb 22, BUN 17, creatinine 0.43, glucose 205. Lactic was elevated at 4.8 is down to 1.7. Urinalysis unremarkable for infection. Viral screen negative for influenza A/B, RSV, COVID. Urine Legionella antigen negative. Started empirically on Zosyn previously. No recorded fevers while inpatient. No observed coughing. He is on room air. Does not appear in any respiratory distress. LR infusing at 75 mL/h. Cardizem has previously been discontinued. Most recent vital signs including a temperature of 97.4 F, heart rate 88 bpm, blood pressure 99/60 mmHg, nontachypneic, SpO2 recorded at 93% on room air. The patient is seen today December 20, 2024 in follow-up on the regular medical floor. He is currently awake and alert. Sitting up in bed. He has a loose congested cough. He is maintaining good O2 saturations in the mid 90s on room air oxygen. He has been afebrile. Slightly tachycardic. Follow-up chest x-ray shows similar bibasilar patchy airspace opacities. Blood culture reveals no growth. White count 1.87. Hemoglobin 7.5. Platelets 65,000. Sodium 125. Potassium 3.8. Bicarb 23. BUN 8. Creatinine 0.26. Glucose 106. proBNP 3260. Procalcitonin was negative at 0.35. TSH 2.16. He remains anticoagulated with Eliquis. Being nourished with Jevity 1.5 bolus tube feedings of 240 mL 6 times per day. Normal saline at 50 mL/h. The patient is seen today December 21, 2024 in follow-up on the regular medical floor. He is currently resting in bed. In no acute distress. Maintaining O2 saturations in the 90s on room air oxygen. He remains on Zosyn. Blood culture revealed no growth. Sputum culture pending. He did have a temperature of 101.7 last evening. White count 3.1. Hemoglobin 9.2. Platelets 74,000. Sodium 127. Potassium 4.0. Bicarb 22. BUN 11. Creatinine 0.39. Glucose 190. He is continued on Jevity 1.5 bolus feedings. Remains on normal saline at 50 mL/h. Scopolamine patch in place. The patient is seen today December 22, 2024 in follow-up in the intensive care unit. He was placed here as a 3 S. overflow patient as he developed atrial fibrillation with rapid ventricular response, hypoxemia and thick secretions. He is currently sitting up in bed. Awake and alert in no acute distress. Maintaining O2 saturations in the 90s on 2 L/min per nasal cannula. Chest x-ray showed cardiomegaly with mild interstitial changes and mild interstitial pulmonary edema. CT scan of the abdomen and pelvis revealed no evidence of bowel obstruction. PEG tube in appropriate position. White count 1.79. Hemoglobin 7.0. Platelets 51,000. Sodium 07/13/2026. Potassium 3.4. Bicarb 27. BUN 13. Creatinine 0.34. Procalcitonin again negative at 0.24. Cortisol low at 2.9. He is currently on amiodarone drip at 1 mg/min. He is anticoagulat ed with Eliquis. He remains on Jevity tube feedings. Remains on bronchodilators. Antibiotics in the form of Zosyn. Scopolamine patch in place. Objective - Vital Signs Vital signs: Vital Signs Temp 98 F 12/22/24 08:00 Pulse 89 12/22/24 08:00 Resp 19 12/22/24 08:00 BP 112/62 12/22/24 08:00 Pulse Ox 95 12/22/24 08:00 FiO2 Intake & Output 12/21/24 12/22/24 12/22/24 18:59 06:59 18:59 Intake Total 1440 720 240 Output Total 400 Balance 1040 720 240 Weight 77.5 kg 78.5 kg 78.5 kg Intake: Tube Feeding 1440 720 240 Output: Urine 400 Other: Voiding Method Diaper Diaper Diaper External Catheter External Catheter External Catheter # Voids 2 1 - Exam GENERAL EXAM: Alert, 74-year-old male, resting in bed, on 2 L/min per nasal cannula, in no apparent distress. HEAD: Normocephalic and atraumatic EYES: Normal reaction of pupils, equal size. NOSE: Clear with pink turbinates. THROAT: No erythema or exudates. Dry mucous membranes. NECK: No masses, no JVD. CHEST: No chest wall deformity. LUNGS: Equal air entry with scattered rhonchi. No crackles, wheezing, focal dullness. CVS: S1 and S2 normal with no audible murmur, irregular rhythm. No extra heart sounds ABDOMEN: No hepatosplenomegaly, active bowel sounds, no guarding or rigidity. PEG tube noted. SPINE: No scoliosis or deformity SKIN: No rashes CENTRAL NERVOUS SYSTEM: Patient is alert, only oriented to self, will follow some simple commands, no focal deficits, tone is normal in all 4 extremities. EXTREMITIES: There is no peripheral edema, clubbing, or cyanosis. Peripheral pulses are intact. - Labs CBC & Chem 7: 12/22/24 07:33 12/22/24 06:01 Labs: Abnormal Lab Results - Last 24 Hours (Table) 12/21/24 12/21/24 12/21/24 Range/Units 11:02 11:45 17:11 WBC (4.50-10.00) 10*3/uL RBC (4.40-5.60) 10*6/uL Hgb (13.0-17.0) g/dL Hct (39.6-50.0) % MCV (80.0-97.0) fL MCH (27.0-32.0) pg Plt Count (140-440) 10*3/uL Neutrophils # (1.80-7.70) 10*3/uL Lymphocytes # (0.90-5.00) 10*3/uL Monocytes # (0.20-1.00) 10*3/uL Eosinophils # (0.04-0.35) 10*3/uL Sodium 124 L 126 L (137-145) mmol/L Potassium (3.5-5.1) mmol/L Chloride (98-107) mmol/L Creatinine (0.66-1.25) mg/dL Glucose (74-99) mg/dL POC Glucose (mg/dL) 239 H (70-110) mg/dL Calcium (8.4-10.2) mg/dL C-Reactive Protein 24.8 H (<1.0) mg/dL Cortisol (3.1-22.4) UG/DL 12/21/24 12/21/24 12/21/24 Range/Units 17:11 17:43 23:22 WBC (4.50-10.00) 10*3/uL RBC (4.40-5.60) 10*6/uL Hgb (13.0-17.0) g/dL Hct (39.6-50.0) % MCV (80.0-97.0) fL MCH (27.0-32.0) pg Plt Count (140-440) 10*3/uL Neutrophils # (1.80-7.70) 10*3/uL Lymphocytes # (0.90-5.00) 10*3/uL Monocytes # (0.20-1.00) 10*3/uL Eosinophils # (0.04-0.35) 10*3/uL Sodium (137-145) mmol/L Potassium (3.5-5.1) mmol/L Chloride (98-107) mmol/L Creatinine (0.66-1.25) mg/dL Glucose (74-99) mg/dL POC Glucose (mg/dL) 243 H 230 H (70-110) mg/dL Calcium (8.4-10.2) mg/dL C-Reactive Protein (<1.0) mg/dL Cortisol 2.9 L (3.1-22.4) UG/DL 12/22/24 12/22/24 12/22/24 Range/Units 05:40 06:01 07:33 WBC 1.79 L (4.50-10.00) 10*3/uL RBC 1.97 L (4.40-5.60) 10*6/uL Hgb 7.0 L D (13.0-17.0) g/dL Hct 20.2 L (39.6-50.0) % MCV 102.5 H (80.0-97.0) fL MCH 35.5 H (27.0-32.0) pg Plt Count 51 L (140-440) 10*3/uL Neutrophils # 1.30 L (1.80-7.70) 10*3/uL Lymphocytes # 0.38 L (0.90-5.00) 10*3/uL Monocytes # 0.07 L (0.20-1.00) 10*3/uL Eosinophils # 0.01 L (0.04-0.35) 10*3/uL Sodium 127 L (137-145) mmol/L Potassium 3.4 L (3.5-5.1) mmol/L Chloride 96 L (98-107) mmol/L Creatinine 0.34 L (0.66-1.25) mg/dL Glucose 224 H (74-99) mg/dL POC Glucose (mg/dL) 254 H (70-110) mg/dL Calcium 6.9 L (8.4-10.2) mg/dL C-Reactive Protein (<1.0) mg/dL Cortisol (3.1-22.4) UG/DL Assessment and Plan Assessment: Intractable nausea and vomiting with concerns for possible aspiration, chest x- ray remarkable for cardiomegaly, mild PVC, and bibasilar airspace opacities. No pleural effusions. No pneumothoraces. Procalcitonin negative x2. Sputum culture pending Atrial fibrillation with rapid ventricular response, currently on an amiodarone drip. Anticoagulated with Eliquis Metastatic oropharyngeal cancer, brain MRI from Oct, 2024 showing a left pharyngeal mass larger than previous PET scan with extension through the jugular eason to the cerebellar pontine angle. With vasogenic edema in the adjacent cerebellum with some mass effect. Chest CT angiogram from Oct, 2024 remarkable for increased size and number of pulmonary nodules. Largest nodule in the left upper lung measuring 2.1 cm. Additional multiple enlarged mediastinal lymph nodes Altered mental status, likely secondary to above Chronic dysphagia and previous PEG tube placement Pancytopenia Hyponatremia, consider SIADH History of heart failure with reduced ejection fraction History of hyperlipidemia Diabetes mellitus, insulin-dependent Plan: The patient was seen and evaluated Chest x-ray, labs and medications reviewed Developed atrial fibrillation with rapid ventricular response Currently on amiodarone drip at 1 mg/min Anticoagulated with Eliquis Sputum culture pending Remains on Zosyn Stable on 2 L nasal cannula Normal saline at 50 mL/h Continued on Jevity tube feedings Aspiration precautions Scopolamine patch in place Prognosis is guarded Plan is for home with home care at discharge I have personally seen and examined the patient, performed the documentation and the assessment and plan as written. Number of minutes spent on the visit: 10 Dictation was produced using [employer] dictation software. Please excuse any grammatical, word or spelling errors.
[2024-12-22] MEDS: AMIODARONE 450 MG in DEXTROSE 5% IN WATER 250 ML IV SCH (12:06)
[2024-12-22 12:08] LABS: Glucose,Whole Blood 141 mg/dL (70-110)
[2024-12-22] MEDS ORDERED: VANCOMYCIN IV PER PHARMACY 1 EACH MISC MISCELLANE PRN (15:40)
--- NOTE | 2024-12-22 15:40 | P.PN ---
Subjective Progress Note Date: 12/22/24 Principal diagnosis: Reason for follow-up is fever/pneumonia Patient is a 74-year-old male with a past medical history significant for Atrial Fibrillation, Cancer, Diabetes Mellitus, Hyperlipidemia, Myocardial Infarction ([place]) he did have cancer of the cervical spine C1-C2 for the patient has received chemo completed in June 2024 and has received radiation therapy admitted to hospital with weakness noticed to have a fever prompting this consultation. On today's evaluation that is 12/22/2024, the patient developed A-fib with RVR for which the patient was transferred to the ICU patient is hemodynamically stable not requiring any pressor support he did have low-grade fever of 100.6 F denies any chest pain no cough no abdominal pain or diarrhea. Patient white count is 1.79, creatinine 0.[address] did not show any bowel obstruction bibasilar patchy airspace opacity concerning for pneumonia Objective - Vital Signs Vital signs: Vital Signs Temp 97.5 F L 12/22/24 12:00 Pulse 91 12/22/24 12:00 Resp 22 12/22/24 12:00 BP 107/53 12/22/24 12:00 Pulse Ox 98 12/22/24 12:00 FiO2 Intake & Output 12/21/24 12/22/24 12/22/24 18:59 06:59 18:59 Intake Total 1440 720 240 Output Total 400 Balance 1040 720 240 Weight 77.5 kg 78.5 kg 78.5 kg Intake: Tube Feeding 1440 720 240 Output: Urine 400 Other: Voiding Method Diaper Diaper Diaper External Catheter External Catheter External Catheter # Voids 2 1 - Exam GENERAL DESCRIPTION: An elderly male lying in bed in no distress RESPIRATORY SYSTEM: Unlabored breathing , decreased breath sounds at bases HEART: S1 S2 regular rate and rhythm , ABDOMEN: Soft , no tenderness EXTREMITIES: No edema feet - Labs CBC & Chem 7: 12/22/24 07:33 12/22/24 06:01 Labs: Abnormal Lab Results - Last 24 Hours (Table) 12/21/24 12/21/24 12/21/24 Range/Units 17:11 17:11 17:43 WBC (4.50-10.00) 10*3/uL RBC (4.40-5.60) 10*6/uL Hgb (13.0-17.0) g/dL Hct (39.6-50.0) % MCV (80.0-97.0) fL MCH (27.0-32.0) pg Plt Count (140-440) 10*3/uL Neutrophils # (1.80-7.70) 10*3/uL Lymphocytes # (0.90-5.00) 10*3/uL Monocytes # (0.20-1.00) 10*3/uL Eosinophils # (0.04-0.35) 10*3/uL Sodium 126 L (137-145) mmol/L Potassium (3.5-5.1) mmol/L Chloride (98-107) mmol/L Creatinine (0.66-1.25) mg/dL Glucose (74-99) mg/dL POC Glucose (mg/dL) 243 H (70-110) mg/dL Calcium (8.4-10.2) mg/dL Cortisol 2.9 L (3.1-22.4) UG/DL 12/21/24 12/22/24 12/22/24 Range/Units 23:22 05:40 06:01 WBC (4.50-10.00) 10*3/uL RBC (4.40-5.60) 10*6/uL Hgb (13.0-17.0) g/dL Hct (39.6-50.0) % MCV (80.0-97.0) fL MCH (27.0-32.0) pg Plt Count (140-440) 10*3/uL Neutrophils # (1.80-7.70) 10*3/uL Lymphocytes # (0.90-5.00) 10*3/uL Monocytes # (0.20-1.00) 10*3/uL Eosinophils # (0.04-0.35) 10*3/uL Sodium 127 L (137-145) mmol/L Potassium 3.4 L (3.5-5.1) mmol/L Chloride 96 L (98-107) mmol/L Creatinine 0.34 L (0.66-1.25) mg/dL Glucose 224 H (74-99) mg/dL POC Glucose (mg/dL) 230 H 254 H (70-110) mg/dL Calcium 6.9 L (8.4-10.2) mg/dL Cortisol (3.1-22.4) UG/DL 12/22/24 12/22/24 Range/Units 07:33 12:06 WBC 1.79 L (4.50-10.00) 10*3/uL RBC 1.97 L (4.40-5.60) 10*6/uL Hgb 7.0 L D (13.0-17.0) g/dL Hct 20.2 L (39.6-50.0) % MCV 102.5 H (80.0-97.0) fL MCH 35.5 H (27.0-32.0) pg Plt Count 51 L (140-440) 10*3/uL Neutrophils # 1.30 L (1.80-7.70) 10*3/uL Lymphocytes # 0.38 L (0.90-5.00) 10*3/uL Monocytes # 0.07 L (0.20-1.00) 10*3/uL Eosinophils # 0.01 L (0.04-0.35) 10*3/uL Sodium (137-145) mmol/L Potassium (3.5-5.1) mmol/L Chloride (98-107) mmol/L Creatinine (0.66-1.25) mg/dL Glucose (74-99) mg/dL POC Glucose (mg/dL) 141 H (70-110) mg/dL Calcium (8.4-10.2) mg/dL Cortisol (3.1-22.4) UG/DL Assessment and Plan (1) Pneumonia Current Visit: Yes Status: Acute Priority: High Code(s): J18.9 - PNEUMONIA, UNSPECIFIED ORGANISM SNOMED Code(s): 373530365 (2) Sepsis Current Visit: Yes Status: Acute Priority: High Code(s): A41.9 - SEPSIS, UNSPECIFIED ORGANISM SNOMED Code(s): 64854588 Plan: 1patient with a fever in this patient who did have a history of C1-C2 cervical spine cancer status post chemoradiation therapy did have difficulty swallowing requiring PEG tube placement admitted to the hospital 4 days ago predominantly with nausea vomiting and some abdominal discomfort and there is concern for possible aspiration pneumonitis with the lack etiology however abdominal source not entirely excluded 2-sputum is growing corynebacterium stratum as well as Serratia sensitivity pen ding 3-patient did have CT of abdominal pelvis with contrast did not show any intra- abdominal pathology there was concern for bibasilar opacities/pneumonia 4-I will discontinue Zosyn and start the patient cefepime and vancomycin pending sensitivities on the stool pathogen Dictation was produced using [employer] dictation software. please excuse any grammatical, word or spelling errors. Time with Patient: Less than 30
[2024-12-22] MEDS: CEFEPIME 2 GM in SODIUM CHLORIDE 0.9% 100 ML IVPB SCH (16:05)
--- NOTE | 2024-12-22 16:26 | P.PN ---
Subjective Patient is being followed for hyponatremia. He is currently down for CT of the abdomen. Blood pressure remains low Currently off of IV fluids and maintained on sodium chloride tabs. Serum sodium is slowly improving and is 127 today. Objective - Vital Signs Vital signs: Vital Signs Temp 100.6 F H 12/22/24 14:18 Pulse 122 H 12/22/24 14:18 Resp 20 12/22/24 14:18 BP 123/78 12/22/24 14:18 Pulse Ox 90 L 12/22/24 14:18 FiO2 Intake & Output 12/21/24 12/22/24 12/22/24 18:59 06:59 18:59 Intake Total 1440 720 240 Output Total 400 Balance 1040 720 240 Weight 77.5 kg 78.5 kg 78.5 kg Intake: Tube Feeding 1440 720 240 Output: Urine 400 Other: Voiding Method Diaper Diaper Diaper External Catheter External Catheter External Catheter # Voids 2 1 - Exam Not examined - Labs CBC & Chem 7: 12/22/24 07:33 12/22/24 06:01 Labs: Abnormal Lab Results - Last 24 Hours (Table) 12/21/24 12/21/24 12/21/24 Range/Units 17:11 17:11 17:43 WBC (4.50-10.00) 10*3/uL RBC (4.40-5.60) 10*6/uL Hgb (13.0-17.0) g/dL Hct (39.6-50.0) % MCV (80.0-97.0) fL MCH (27.0-32.0) pg Plt Count (140-440) 10*3/uL Neutrophils # (1.80-7.70) 10*3/uL Lymphocytes # (0.90-5.00) 10*3/uL Monocytes # (0.20-1.00) 10*3/uL Eosinophils # (0.04-0.35) 10*3/uL Sodium 126 L (137-145) mmol/L Potassium (3.5-5.1) mmol/L Chloride (98-107) mmol/L Creatinine (0.66-1.25) mg/dL Glucose (74-99) mg/dL POC Glucose (mg/dL) 243 H (70-110) mg/dL Calcium (8.4-10.2) mg/dL Cortisol 2.9 L (3.1-22.4) UG/DL 12/21/24 12/22/24 12/22/24 Range/Units 23:22 05:40 06:01 WBC (4.50-10.00) 10*3/uL RBC (4.40-5.60) 10*6/uL Hgb (13.0-17.0) g/dL Hct (39.6-50.0) % MCV (80.0-97.0) fL MCH (27.0-32.0) pg Plt Count (140-440) 10*3/uL Neutrophils # (1.80-7.70) 10*3/uL Lymphocytes # (0.90-5.00) 10*3/uL Monocytes # (0.20-1.00) 10*3/uL Eosinophils # (0.04-0.35) 10*3/uL Sodium 127 L (137-145) mmol/L Potassium 3.4 L (3.5-5.1) mmol/L Chloride 96 L (98-107) mmol/L Creatinine 0.34 L (0.66-1.25) mg/dL Glucose 224 H (74-99) mg/dL POC Glucose (mg/dL) 230 H 254 H (70-110) mg/dL Calcium 6.9 L (8.4-10.2) mg/dL Cortisol (3.1-22.4) UG/DL 12/22/24 12/22/24 Range/Units 07:33 12:06 WBC 1.79 L (4.50-10.00) 10*3/uL RBC 1.97 L (4.40-5.60) 10*6/uL Hgb 7.0 L D (13.0-17.0) g/dL Hct 20.2 L (39.6-50.0) % MCV 102.5 H (80.0-97.0) fL MCH 35.5 H (27.0-32.0) pg Plt Count 51 L (140-440) 10*3/uL Neutrophils # 1.30 L (1.80-7.70) 10*3/uL Lymphocytes # 0.38 L (0.90-5.00) 10*3/uL Monocytes # 0.07 L (0.20-1.00) 10*3/uL Eosinophils # 0.01 L (0.04-0.35) 10*3/uL Sodium (137-145) mmol/L Potassium (3.5-5.1) mmol/L Chloride (98-107) mmol/L Creatinine (0.66-1.25) mg/dL Glucose (74-99) mg/dL POC Glucose (mg/dL) 141 H (70-110) mg/dL Calcium (8.4-10.2) mg/dL Cortisol (3.1-22.4) UG/DL Microbiology - Last 24 Hours (Table) 12/20/24 17:19 Gram Stain - Preliminary Sputum Sputum Culture - Preliminary Corynebacterium striatum group Serratia marcescens ssp marces Assessment and Plan Assessment: 1. Hyponatremia, currently euvolemic, status post IV fluids on initial admission and received 1 dose of Lasix. Currently off of IV fluids and started on sodium chloride tabs as blood pressure remains low. Free water with tube feedings has been discontinued. Urine osmolality at 621 with urine sodium at 82 suggesting possible underlying SIADH. 2. Pneumonia maintained on antibiotics 3. A-fib/flutter maintained on Eliquis and Lopressor 4. History of CVA Plan: Continue off of IV fluids Maintain minimum free water with tube feeding Continue with sodium chloride tabs Repeat labs in a.m.
[2024-12-22] MEDS: DIGOXIN 250 MCG/ML 2 ML AMP IVP ONE (18:43)
[2024-12-22] MEDS: VANCOMYCIN 1,500 MG in SODIUM CHLORIDE 0.9% 500 ML 500 ML IVPB ONE (18:50)
--- NOTE | 2024-12-22 18:53 | P.PN ---
Subjective Progress Note Date: 12/22/24 Pt downgraded from ICU today, seen on 3 south. Pt experiencing rigors, temp 100.6. WBC 1.79, ANC 1.30, Hgb 7.0, plt 51,000 Objective - Vital Signs Vital signs: Vital Signs Temp 100.6 F H 12/22/24 14:18 Pulse 122 H 12/22/24 14:18 Resp 20 12/22/24 14:18 BP 123/78 12/22/24 14:18 Pulse Ox 90 L 12/22/24 14:18 FiO2 Intake & Output 12/21/24 12/22/24 12/22/24 18:59 06:59 18:59 Intake Total 1440 720 240 Output Total 400 Balance 1040 720 240 Weight 77.5 kg 78.5 kg 78.5 kg Intake: Tube Feeding 1440 720 240 Output: Urine 400 Other: Voiding Method Diaper Diaper Diaper External Catheter External Catheter External Catheter # Voids 2 1 - Constitutional General appearance: Present: mild distress - EENT Eyes: Present: anicteric sclerae - Respiratory Details: breathing is even and unlabored - Cardiovascular Details: skin warm and dry - Integumentary Integumentary: Present: pale - Musculoskeletal Musculoskeletal: Present: generalized weakness - Labs CBC & Chem 7: 12/22/24 07:33 12/22/24 06:01 Labs: Abnormal Lab Results - Last 24 Hours (Table) 12/21/24 12/21/24 12/21/24 Range/Units 17:11 17:11 17:43 WBC (4.50-10.00) 10*3/uL RBC (4.40-5.60) 10*6/uL Hgb (13.0-17.0) g/dL Hct (39.6-50.0) % MCV (80.0-97.0) fL MCH (27.0-32.0) pg Plt Count (140-440) 10*3/uL Neutrophils # (1.80-7.70) 10*3/uL Lymphocytes # (0.90-5.00) 10*3/uL Monocytes # (0.20-1.00) 10*3/uL Eosinophils # (0.04-0.35) 10*3/uL Sodium 126 L (137-145) mmol/L Potassium (3.5-5.1) mmol/L Chloride (98-107) mmol/L Creatinine (0.66-1.25) mg/dL Glucose (74-99) mg/dL POC Glucose (mg/dL) 243 H (70-110) mg/dL Calcium (8.4-10.2) mg/dL Cortisol 2.9 L (3.1-22.4) UG/DL 12/21/24 12/22/24 12/22/24 Range/Units 23:22 05:40 06:01 WBC (4.50-10.00) 10*3/uL RBC (4.40-5.60) 10*6/uL Hgb (13.0-17.0) g/dL Hct (39.6-50.0) % MCV (80.0-97.0) fL MCH (27.0-32.0) pg Plt Count (140-440) 10*3/uL Neutrophils # (1.80-7.70) 10*3/uL Lymphocytes # (0.90-5.00) 10*3/uL Monocytes # (0.20-1.00) 10*3/uL Eosinophils # (0.04-0.35) 10*3/uL Sodium 127 L (137-145) mmol/L Potassium 3.4 L (3.5-5.1) mmol/L Chloride 96 L (98-107) mmol/L Creatinine 0.34 L (0.66-1.25) mg/dL Glucose 224 H (74-99) mg/dL POC Glucose (mg/dL) 230 H 254 H (70-110) mg/dL Calcium 6.9 L (8.4-10.2) mg/dL Cortisol (3.1-22.4) UG/DL 12/22/24 12/22/24 Range/Units 07:33 12:06 WBC 1.79 L (4.50-10.00) 10*3/uL RBC 1.97 L (4.40-5.60) 10*6/uL Hgb 7.0 L D (13.0-17.0) g/dL Hct 20.2 L (39.6-50.0) % MCV 102.5 H (80.0-97.0) fL MCH 35.5 H (27.0-32.0) pg Plt Count 51 L (140-440) 10*3/uL Neutrophils # 1.30 L (1.80-7.70) 10*3/uL Lymphocytes # 0.38 L (0.90-5.00) 10*3/uL Monocytes # 0.07 L (0.20-1.00) 10*3/uL Eosinophils # 0.01 L (0.04-0.35) 10*3/uL Sodium (137-145) mmol/L Potassium (3.5-5.1) mmol/L Chloride (98-107) mmol/L Creatinine (0.66-1.25) mg/dL Glucose (74-99) mg/dL POC Glucose (mg/dL) 141 H (70-110) mg/dL Calcium (8.4-10.2) mg/dL Cortisol (3.1-22.4) UG/DL Microbiology - Last 24 Hours (Table) 12/20/24 17:19 Gram Stain - Preliminary Sputum Sputum Culture - Preliminary Corynebacterium striatum group Serratia marcescens ssp marces Assessment and Plan (1) Atrial fibrillation with RVR Current Visit: Yes Status: Acute Priority: High Code(s): I48.91 - UNSPECIF IED ATRIAL FIBRILLATION SNOMED Code(s): 791630878469052 (2) Pneumonia Current Visit: Yes Status: Acute Priority: High Code(s): J18.9 - PNEUMONIA, UNSPECIFIED ORGANISM SNOMED Code(s): 061641562 (3) Head and neck cancer Current Visit: Yes Status: Acute Priority: Medium Code(s): C76.0 - MALIGNANT NEOPLASM OF HEAD, FACE AND NECK SNOMED Code(s): 538047675 Plan: Recurrent head neck malignancy - Patient has had a recurrence of his malignancy within a few months of completing initial definitive treatment. The neck mass is growing up and compressing the brain. Patient is currently receiving radiation for palliation. -Discussed case with IM-concerns for persistent fevers despite antibiotics. Fever from malignancy vs a neurological phenomenon from compression from the mass? -Reviewed concerns with pt and . Concerns also for pt weakness, ability to tolerate any form of treatment, ability to get back and forth to appointments. -Case discussed with Radiation Oncologist. Patient has had planned radiation treatments. Recommendation is for imaging about 2 months after completion of radiation to assess. Ideally, systemic chemotherapy would be initiated soon after completion of radiation but, patient is very weak and would need rehabilitation to become strong enough to be able to tolerate treatment, even to get back and forth to treatment. Another challenge to treatment is that immunotherapy was going to be offered as a treatment option. Immunotherapy can take 2-3 months before the effects of treatment can be appreciated. Patient does not appear at this time to have the strength to do the treatment, let alone trying to do treatment for several months in hopes of having a positive effect from treatment. Pt/spouse do not appear to be amendable to comfort care measures at this time. We will continue to follow course of hospitalization Pneumonia: -Concern for aspiration pneumonia -Continues IV abx -ID following Pancytopenia: -Likely reactive to acute condition/infection. No reported episodes of acute bleeding -Continue to closely monitor CBC -WBC/ANC low but still adequate, no G-CSF at this time -Transfuse for hgb less than 7 or for plts less than 10,000 or if symptomatic. If remains on anticoagulation, plts >50,000 attests: I have performed H&P and developed impression and plan of care for patient, discussed with dictator. I agree with dictated note, documented as a scribe
[2024-12-22 19:06] LABS: HCT 22.2 % (39.6-50.0); HGB 7.6 g/dL (13.0-17.0); MCH 35.2 pg (27.0-32.0); MCHC 34.2 g/dL (32.0-37.0); MCV 102.8 fL (80.0-97.0); RBC 2.16 10*6/uL (4.40-5.60); RDW 15.9 % (11.5-14.5); WBC 1.65 10*3/uL (4.50-10.00)
--- NOTE | 2024-12-22 19:08 | XR ---
EXAMINATION TYPE: XR chest 1V portable DATE OF EXAM: 12/22/2024 6:10 PM CLINICAL INDICATION:Male, 74 years old with history of Aspiration; H COMPARISON: Chest radiograph 12/22/2024 TECHNIQUE: XR chest 1V portable Frontal view of the chest. FINDINGS: Lungs/Pleura: Patchy airspace opacities are seen in the bilateral mid and lower lungs. No pneumothora x.. Pulmonary vascularity: Unremarkable. Heart/mediastinum: Cardiomediastinal silhouette is unremarkable. Musculoskeletal: No acute osseous pathology. IMPRESSION: Bilateral patchy airspace disease in bilateral mid and lower lung zones. Correlate for pneumonia. [facility], , 12/22/2024 7:06 PM
[2024-12-22 19:11] LABS: Platelet Count 52 10*3/uL (140-440)
--- NOTE | 2024-12-22 19:11 | XR ---
EXAMINATION TYPE: XR KUB portable DATE OF EXAM: 12/22/2024 6:11 PM CLINICAL INDICATION:Male, 74 years old with history of aspiration; PHH, pain COMPARISON: Chest radiograph and CT abdomen/pelvis from same day. TECHNIQUE: One radiographic view of the abdomen was obtained. FINDINGS: Contrast opacified loops of large bowel are noted. Some of these loops of bowel are distended with ga s. Nonspecific bowel gas pattern. No acute osseous abnormalities. Right hip arthroplasty hardware is intact. Vascular sclerosis incidentally noted. Contrast is suggested within the urinary bladder. Inci dental note of PEG tube overlying the stomach. IMPRESSION: Nonspecific bowel gas pattern without radiographic evidence for acute process. Please see CT abdomen from the same day for further details. [facility], , 12/22/2024 7:09 PM
[2024-12-22 19:28] LABS: African American GFR (CKD) >90 (>60 ml/min/1.73 sqM); Anion Gap 8 mmol/L; Blood Urea Nitrogen 14 mg/dL (9-20); Calcium 7.3 mg/dL (8.4-10.2); Carbon Dioxide 22 mmol/L (22-30); Chloride 96 mmol/L (98-107); Glucose 146 mg/dL (74-99); Magnesium 1.4 mg/dL (1.6-2.3); Non-African American GFR(CKD) >90 (>60 ml/min/1.73 sqM); Potassium 4.0 mmol/L (3.5-5.1); Sodium 126 mmol/L (137-145)
[2024-12-22] MEDS ORDERED: Magnesium Replacement Protocol 1 EACH MISC MISCELLANE PRN (20:53)
[2024-12-22] MEDS: MAGNESIUM SULFATE-D5W PMX 1 GM in DEXTROSE/WATER 1 100ML.BAG IVPB SCH (21:02)
[2024-12-22 22:45] LABS: Glucose,Whole Blood 162 mg/dL (70-110)
[2024-12-23] MEDS: DIGOXIN 250 MCG/ML 2 ML AMP IVP SCH (01:18)
[2024-12-23] MEDS: VANCOMYCIN 1,250 MG in SODIUM CHLORIDE 0.9% 250 ML IVPB SCH (02:08)
[2024-12-23 04:22] LABS: African American GFR (CKD) >90 (>60 ml/min/1.73 sqM); Magnesium 1.8 mg/dL (1.6-2.3); Non-African American GFR(CKD) >90 (>60 ml/min/1.73 sqM)
[2024-12-23 04:24] LABS: MCH 36.2 pg (27.0-32.0); MCHC 36.8 g/dL (32.0-37.0); MCV 98.3 fL (80.0-97.0); RBC 1.77 10*6/uL (4.40-5.60); RDW 16.2 % (11.5-14.5); WBC 2.55 10*3/uL (4.50-10.00)
[2024-12-23 04:34] LABS: HCT 17.4 % (39.6-50.0); HGB 6.4 g/dL (13.0-17.0)
[2024-12-23 04:35] LABS: Platelet Count 45 10*3/uL (140-440)
[2024-12-23 05:05] LABS: Glucose,Whole Blood 111 mg/dL (70-110)
[2024-12-23] MEDS: AMIODARONE 450 MG in DEXTROSE 5% IN WATER 250 ML IV SCH (05:12)
[2024-12-23 05:28] LABS: Immature Platelet Fraction 3.7 % (1.1-6.1); MCH 36.0 pg (27.0-32.0); MCHC 35.0 g/dL (32.0-37.0); MCV 102.9 fL (80.0-97.0); RBC 1.75 10*6/uL (4.40-5.60); RDW 16.3 % (11.5-14.5); WBC 2.68 10*3/uL (4.50-10.00)
[2024-12-23 05:44] LABS: African American GFR (CKD) >90 (>60 ml/min/1.73 sqM); Anion Gap 0 mmol/L; Blood Urea Nitrogen 13 mg/dL (9-20); Calcium 6.5 mg/dL (8.4-10.2); Carbon Dioxide 23 mmol/L (22-30); Chloride 104 mmol/L (98-107); Glucose 94 mg/dL (74-99); Magnesium 1.7 mg/dL (1.6-2.3); Non-African American GFR(CKD) >90 (>60 ml/min/1.73 sqM); Potassium 4.0 mmol/L (3.5-5.1); Sodium 127 mmol/L (137-145)
[2024-12-23 06:23] LABS: HCT 18.0 % (39.6-50.0); HGB 6.3 g/dL (13.0-17.0); Platelet Count 47 10*3/uL (140-440)
[2024-12-23 06:56] LABS: Lymphocytes # (M) 0.61 k/uL (1.0-4.8); Monocytes # (M) 0.03 k/uL (0-1.0); Neutrophils # (M) 1.91 k/uL (1.3-7.7); Neutrophils % (M) 69 %; Total Cells Counted 100
--- NOTE | 2024-12-23 07:14 | XR ---
EXAMINATION TYPE: XR chest 1V portable DATE OF EXAM: 12/23/2024 COMPARISON: 12/22/2024 CLINICAL INDICATION: Male, 74 years old with history of Pneumonia; TECHNIQUE: Single frontal view of the chest is obtained. FINDINGS: There is been interval insertion of an NG tube within the stomach. There is ill-defined interstitial and small airspace infiltrates in both lungs consistent with histor y of pneumonia. There is been no significant interval change. There is no large pleural effusion. There is no pneumothorax. The heart size is normal. The osseous structures are intact IMPRESSION: 1. Acute cardiopulmonary disease with no significant interval change. 2. Interval insertion of NG tube within the stomach. [facility], , 12/23/2024 7:11 AM
--- NOTE | 2024-12-23 09:56 | P.PN ---
Subjective Progress Note Date: 12/23/24 Patient is a 74-year-old male with past medical history significant for head/neck cancer diagnosed back in April,. 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 Previously on carbo/Taxol, subsequently on Keytruda. PET scan from June, demonstr ating a 2.8 x 2.2 cm parapharyngeal mass. FDG avid left upper lobe pulmonary nodule. Since then, concerns for disease progression. MRI brain from Oct, 2024 showing a left pharyngeal mass larger than previous PET scan with extension through the jugular eason to the cerebellar pontine angle. With vasogenic edema in the adjacent cerebellum with some mass effect. Currently, undergoing radiation treatments. Also, takes oral Decadron. Chest CT angiogram from Oct, 2024 remarkable for increased size and number of pulmonary nodules. Largest nodule in the left upper lung measuring 2.1 cm. Additional multiple enlarged mediastinal lymph nodes. Did have issues with swallowing and did have a PEG tube placed at an outside facility. He has had multiple hospitalizations related to related complications of his cancer and treatments. He follows with his established oncologist Dr. De Jesus. Additional past medical history including hyperlipidemia, diabetes, atrial fibrillation, heart failure. Echocardiogram from July, estimating left ventricular ejection fraction of 45 to 50%. Patient currently being evaluated on the oncology unit. He is a poor historian. Apparently, brought into the emergency department back on 12/17/2024 for nausea, vomiting, and generalized weakness. Also, family was reporting fevers at home. Concerns of sepsis. While in the ED, noted to be in atrial fi brillation with RVR, started on Cardizem infusion for rate control. Blood pressure was marginal and the patient was fluid resuscitated with a total of 2.5 L of LR. Chest x-ray remarkable for cardiomegaly, pulmonary vascular congestion, and bibasilar airspace opacities. NT proBNP 2140. CBC with a WBC count of 3.47, hemoglobin 7.9 g/dL, platelets 91,000. CMP: Sodium 127, potassium 4.2, chloride 99, serum bicarb 22, BUN 17, creatinine 0.43, glucose 205. Lactic was elevated at 4.8 is down to 1.7. Urinalysis unremarkable for infection. Viral screen negative for influenza A/B, RSV, COVID. Urine Legionella antigen negative. Started empirically on Zosyn previously. No recorded fevers while inpatient. No observed coughing. He is on room air. Does not appear in any respiratory distress. LR infusing at 75 mL/h. Cardizem has previously been discontinued. Most recent vital signs including a temperature of 97.4 F, heart rate 88 bpm, blood pressure 99/60 mmHg, nontachypneic, SpO2 recorded at 93% on room air. The patient is seen today December 20, 2024 in follow-up on the regular medical floor. He is currently awake and alert. Sitting up in bed. He has a loose congested cough. He is maintaining good O2 saturations in the mid 90s on room air oxygen. He has been afebrile. Slightly tachycardic. Follow-up chest x-ray shows similar bibasilar patchy airspace opacities. Blood culture reveals no growth. White count 1.87. Hemoglobin 7.5. Platelets 65,000. Sodium 125. Potassium 3.8. Bicarb 23. BUN 8. Creatinine 0.26. Glucose 106. proBNP 3260. Procalcitonin was negative at 0.35. TSH 2.16. He remains anticoagulated with Eliquis. Being nourished with Jevity 1.5 bolus tube feedings of 240 mL 6 times per day. Normal saline at 50 mL/h. The patient is seen today December 21, 2024 in follow-up on the regular medical floor. He is currently resting in bed. In no acute distress. Maintaining O2 saturations in the 90s on room air oxygen. He remains on Zosyn. Blood culture revealed no growth. Sputum culture pending. He did have a temperature of 101.7 last evening. White count 3.1. Hemoglobin 9.2. Platelets 74,000. Sodium 127. Potassium 4.0. Bicarb 22. BUN 11. Creatinine 0.39. Glucose 190. He is continued on Jevity 1.5 bolus feedings. Remains on normal saline at 50 mL/h. Scopolamine patch in place. The patient is seen today December 22, 2024 in follow-up in the intensive care unit. He was placed here as a 3 S. overflow patient as he developed atrial fibrillation with rapid ventricular response, hypoxemia and thick secretions. He is currently sitting up in bed. Awake and alert in no acute distress. Maintaining O2 saturations in the 90s on 2 L/min per nasal cannula. Chest x-ray showed cardiomegaly with mild interstitial changes and mild interstitial pulmonary edema. CT scan of the abdomen and pelvis revealed no evidence of bowel obstruction. PEG tube in appropriate position. White count 1.79. Hemoglobin 7.0. Platelets 51,000. Sodium 07/13/2026. Potassium 3.4. Bicarb 27. BUN 13. Creatinine 0.34. Procalcitonin again negative at 0.24. Cortisol low at 2.9. He is currently on amiodarone drip at 1 mg/min. He is anticoagulat ed with Eliquis. He remains on Jevity tube feedings. Remains on bronchodilators. Antibiotics in the form of Zosyn. Scopolamine patch in place. The patient is seen today December 23, 2024 in follow-up in the intensive care unit. He had been moved out to [facility] yesterday but developed another episode of aspiration and was brought back into the intensive care unit. A nasogastric tube was inserted to assure gastric contents were not continuing to be aspirated. PEG tube remains in place. Abdominal x-ray revealed nonspecific bowel gas pattern without evidence of acute process. Today's chest x-ray shows ill-defined interstitial and small airspace infiltrates bilaterally. No significant change. Nasogastric tube in place. Sputum culture showing Serratia marcescens. Corynebacterium stratum group. White count 2.6. Hemoglobin 6.3. Platelets 47,000. Sodium 127. Potassium 4.0. Bicarb 23. BUN 13. Creatinine 0.29. Glucose 94. He is currently on cefepime and vancomycin. Remains on Du oNeb inhalations. Scopolamine patch in place. He is currently requiring 10 L high flow nasal cannula to maintain O2 saturations in the 90s. He is afebrile. In A-fib with heart rate in the 100s. He is currently on amiodarone at 0.5 mg/min. Continued on Lopressor. Eliquis on hold due to his anemia. Receiving 1 unit of packed red blood cells today. Objective - Vital Signs Vital signs: Vital Signs Temp 98.4 F 12/23/24 08:38 Pulse 100 12/23/24 09:00 Resp 24 12/23/24 09:00 BP 118/68 12/23/24 09:00 Pulse Ox 98 12/23/24 09:00 FiO2 Intake & Output 12/22/24 12/23/24 12/23/24 18:59 06:59 18:59 Intake Total 750 983.616 153.32 Output Total 225 685 185 Balance 525 298.616 -31.68 Weight 78.5 kg 83.6 kg Intake: IV 10 153.32 0.9 Normal Saline @ KVO 10 20 Amiodarone 450 mg In 33.32 Dextrose 5% in Water 250 ml @ 0.5 MG/MIN 16.667 mls/hr IV .Q15H [facility] Rx#: [id number] Cefepime 2 gm In Sodium 100 Chloride 0.9% 100 ml @ 25 mls/hr IVPB Q8HR [facility] Rx# :[id number] Intake, IV Titration 500 983.616 Amount Amiodarone 360 mg In 200 Dextrose 5% in Water 200 ml @ 1 MG/MIN 33.333 mls/ hr IV .Q6H [facility] Rx#: [id number] Amiodarone 450 mg In 233.616 Dextrose 5% in Water 250 ml @ 0.5 MG/MIN 16.667 mls/hr IV .Q15H [facility] Rx#: [id number] Cefepime 2 gm In Sodium 100 Chloride 0.9% 100 ml @ 25 mls/hr IVPB Q8HR [facility] Rx# :[id number] Magnesium Sulfate-D5w Pmx 200 1 gm In Dextrose/Water 1 100ml.bag @ 100 mls/hr IVPB Q1H [facility] Rx#: [id number] Vancomycin 1,250 mg In 250 Sodium Chloride 0.9% 250 ml @ 125 mls/hr IVPB Q12H [facility] Rx#:[id number] Vancomycin 1,500 mg In 500 Sodium Chloride 0.9% 500 ml 500 ml @ 167 mls/hr IVPB ONCE [facility] Rx#: [id number] Tube Feeding 240 Blood Product 0 Unit 0 Output: Gastric Drainage 250 Urine 225 435 185 Other: Voiding Method Diaper Indwelling Catheter External Catheter - Exam GENERAL EXAM: Alert, 74-year-old male, resting in bed, on 10 L high flow nasal cannula, in no apparent distress. HEAD: Normocephalic and atraumatic EYES: Normal reaction of pupils, equal size. NOSE: Clear with pink turbinates. Nasogastric tube secured in place. THROAT: No erythema or exudates. Dry mucous membranes. NECK: No masses, no JVD. CHEST: No chest wall deformity. LUNGS: Equal air entry with scattered rhonchi. CVS: S1 and S2 normal with no audible murmur, irregular rhythm. No extra heart sounds. ABDOMEN: No hepatosplenomegaly, active bowel sounds, no guarding or rigidity. PEG tube noted. SPINE: No scoliosis or deformity SKIN: No rashes CENTRAL NERVOUS SYSTEM: Patient is alert, only oriented to self, will follow some simple commands, no focal deficits, tone is normal in all 4 extremities. EXTREMITIES: There is no peripheral edema, clubbing, or cyanosis. Peripheral pulses are intact. - Labs CBC & Chem 7: 12/23/24 04:58 12/23/24 04:58 Labs: Abnormal Lab Results - Last 24 Hours (Table) 12/22/24 12/22/24 12/22/24 Range/Units 12:06 18:44 18:44 WBC 1.65 L (4.50-10.00) 10*3/uL RBC 2.16 L (4.40-5.60) 10*6/uL Hgb 7.6 L (13.0-17.0) g/dL Hct 22.2 L (39.6-50.0) % MCV 102.8 H (80.0-97.0) fL MCH 35.2 H (27.0-32.0) pg Plt Count 52 L (140-440) 10*3/uL Lymphocytes # (Manual) (1.0-4.8) k/uL Sodium 126 L (137-145) mmol/L Chloride 96 L (98-107) mmol/L Creatinine 0.35 L (0.66-1.25) mg/dL Glucose 146 H (74-99) mg/dL POC Glucose (mg/dL) 141 H (70-110) mg/dL Calcium 7.3 L (8.4-10.2) mg/dL Magnesium 1.4 L (1.6-2.3) mg/dL Crossmatch 12/22/24 12/23/24 12/23/24 Range/Units 22:43 03:39 03:39 WBC 2.55 L (4.50-10.00) 10*3/uL RBC 1.77 L (4.40-5.60) 10*6/uL Hgb 6.4 L* (13.0-17.0) g/dL Hct 17.4 L* (39.6-50.0) % MCV 98.3 H (80.0-97.0) fL MCH 36.2 H (27.0-32.0) pg Plt Count 45 L (140-440) 10*3/uL Lymphocytes # (Manual) 0.61 L (1.0-4.8) k/uL Sodium (137-145) mmol/L Chloride (98-107) mmol/L Creatinine 0.33 L (0.66-1.25) mg/dL Glucose (74-99) mg/dL POC Glucose (mg/dL) 162 H (70-110) mg/dL Calcium (8.4-10.2) mg/dL Magnesium (1.6-2.3) mg/dL Crossmatch 12/23/24 12/23/24 12/23/24 Range/Units 04:58 04:58 04:58 WBC 2.68 L (4.50-10.00) 10*3/uL RBC 1.75 L (4.40-5.60) 10*6/uL Hgb 6.3 L* (13.0-17.0) g/dL Hct 18.0 L* (39.6-50.0) % MCV 102.9 H (80.0-97.0) fL MCH 36.0 H (27.0-32.0) pg Plt Count 47 L (140-440) 10*3/uL Lymphocytes # (Manual) (1.0-4.8) k/uL Sodium 127 L (137-145) mmol/L Chloride (98-107) mmol/L Creatinine 0.29 L (0.66-1.25) mg/dL Glucose (74-99) mg/dL POC Glucose (mg/dL) (70-110) mg/dL Calcium 6.5 L (8.4-10.2) mg/dL Magnesium (1.6-2.3) mg/dL Crossmatch See Detail 12/23/24 Range/Units 05:04 WBC (4.50-10.00) 10*3/uL RBC (4.40-5.60) 10*6/uL Hgb (13.0-17.0) g/dL Hct (39.6-50.0) % MCV (80.0-97.0) fL MCH (27.0-32.0) pg Plt Count (140-440) 10*3/uL Lymphocytes # (Manual) (1.0-4.8) k/uL Sodium (137-145) mmol/L Chloride (98-107) mmol/L Creatinine (0.66-1.25) mg/dL Glucose (74-99) mg/dL POC Glucose (mg/dL) 111 H (70-110) mg/dL Calcium (8.4-10.2) mg/dL Magnesium (1.6-2.3) mg/dL Crossmatch Microbiology - Last 24 Hours (Table) 12/17/24 17:20 Blood Culture - Final Blood 12/21/24 10:50 Blood Culture - Preliminary Blood 12/20/24 17:19 Gram Stain - Preliminary Sputum Sputum Culture - Preliminary Corynebacterium striatum group Serratia marcescens ssp marces Assessment and Plan Assessment: Intractable nausea and vomiting with concerns for possible aspiration, chest x- ray remarkable for cardiomegaly, mild PVC, and bibasilar airspace opacities. No pleural effusions. No pneumothoraces. Procalcitonin negative x2. Sputum culture pending Atrial fibrillation with rapid ventricular response, currently on an amiodarone drip. Anticoagulated with Eliquis Metastatic oropharyngeal cancer, brain MRI from Oct, 2024 showing a left pharyngeal mass larger than previous PET scan with extension through the jugular eason to the cerebellar pontine angle. With vasogenic edema in the adjacent cerebellum with some mass effect. Chest CT angiogram from Oct, 2024 remarkable for increased size and number of pulmonary nodules. Largest nodule in the left upper lung measuring 2.1 cm. Additional multiple enlarged mediastinal lymph nodes Altered mental status, likely secondary to above Chronic dysphagia and previous PEG tube placement Pancytopenia with hemoglobin today 6.3. Receiving 1 unit of packed red blood cells Hyponatremia, consider SIADH History of heart failure with reduced ejection fraction History of hyperlipidemia Diabetes mellitus, insulin-dependent Plan: The patient was seen and evaluated Chest x-ray, labs and medications reviewed Abdominal x-ray reviewed Still with concerns of aspiration Sputum culture positive for Serratia Currently on vancomycin and cefepime Currently on 10 L high flow nasal cannula Currently on amiodarone drip at 0.5 mg/min Nasogastric tube remains in place Continued on Jevity tube feedings Aspiration precautions Continue DuoNeb inhalations Scopolamine patch in place Prognosis is guarded I have personally seen and examined the patient, performed the documentation and the assessment and plan as written. Number of minutes spent on the visit: 10 Dictation was produced using [employer] dictation software. Please excuse any grammatical, word or spelling errors.
[2024-12-23 11:46] LABS: Glucose,Whole Blood 116 mg/dL (70-110)
--- NOTE | 2024-12-23 11:48 | P.PN ---
Subjective Progress Note Date: 12/23/24 This is 74-year-old male patient with past medical history of persistent atrial fibrillation on Eliquis, CHF, hyperlipidemia, oropharyngeal cancer with G-tube feedings. Patient was seen yesterday by cardiology for A-fib with RVR, Cardizem drip was discontinued and patient maintained on oral medications. Lasix was placed on hold due to dehydration and hypotension. Patient remains in atrial fibrillation with controlled ventricular rate. Patient is maintained on Lopressor and Eliquis. Progress note 12/23/2024 Yesterday was transferred to ICU because of hemodynamic compromise, low blood pressure and heart rate along with worsening anemia. He was started on amiodarone drip got 2 doses of digoxin 125 mcg which controlled his heart rate. Heart rates were in 140s with SBP in low 100s. Hemoglobin was 6.4, repeat 6.3. No active source of bleeding was noticed however. Macrocytic anemia. Physical examination: LUNGS: Scattered rhonchi. No intercostal retractions. HEART: Irregular rate and rhythm. No murmur. ABDOMEN: Soft No tenderness. EXTREMITIES: No pedal edema. No calf tenderness. NEUROLOGICAL: Patient is awake. Assessment: Acute on chronic anemia, Persistent A-fib with RVR Oropharyngeal cancer with G-tube feedings Aspiration pneumonia Hypovolemic hyponatremia Lactic acidosis, resolved Pancytopenia Plan: Hold anticoagulation. Replace hemoglobin with goal hemoglobin of 7. Continue metoprolol 25 mg twice daily. Discontinue amiodarone drip. Start amiodarone 200 mg twice daily Digoxin 62.5 mcg every day. He got 2 doses of dig 125 mcg 12/22/2024 Overall prognosis is very guarded. Recommend goals of care discussion with family. Appreciate hematology recommendations for anemia treatment Poor candidate for long-term anticoagulation Objective - Vital Signs Vital signs: Vital Signs Temp 98.5 F 12/23/24 10:50 Pulse 93 12/23/24 11:00 Resp 19 12/23/24 11:00 BP 116/59 12/23/24 11:00 Pulse Ox 96 12/23/24 11:00 FiO2 Intake & Output 12/22/24 12/23/24 12/23/24 18:59 06:59 18:59 Intake Total 750 983.616 516.64 Output Total 225 685 325 Balance 525 298.616 191.64 Weight 78.5 kg 83.6 kg Intake: IV 10 206.64 0.9 Normal Saline @ KVO 10 40 Amiodarone 450 mg In 66.64 Dextrose 5% in Water 250 ml @ 0.5 MG/MIN 16.667 mls/hr IV .Q15H [facility] Rx#: [id number] Cefepime 2 gm In Sodium 100 Chloride 0.9% 100 ml @ 25 mls/hr IVPB Q8HR [facility] Rx# :[id number] Intake, IV Titration 500 983.616 Amount Amiodarone 360 mg In 200 Dextrose 5% in Water 200 ml @ 1 MG/MIN 33.333 mls/ hr IV .Q6H [facility] Rx#: [id number] Amiodarone 450 mg In 233.616 Dextrose 5% in Water 250 ml @ 0.5 MG/MIN 16.667 mls/hr IV .Q15H [facility] Rx#: [id number] Cefepime 2 gm In Sodium 100 Chloride 0.9% 100 ml @ 25 mls/hr IVPB Q8HR [facility] Rx# :[id number] Magnesium Sulfate-D5w Pmx 200 1 gm In Dextrose/Water 1 100ml.bag @ 100 mls/hr IVPB Q1H [facility] Rx#: [id number] Vancomycin 1,250 mg In 250 Sodium Chloride 0.9% 250 ml @ 125 mls/hr IVPB Q12H [facility] Rx#:[id number] Vancomycin 1,500 mg In 500 Sodium Chloride 0.9% 500 ml 500 ml @ 167 mls/hr IVPB ONCE [facility] Rx#: [id number] Tube Feeding 240 Blood Product 310 Rc Irr As1 Unit 310 [id number] Output: Gastric Drainage 250 Urine 225 435 325 Other: Voiding Method Diaper Indwelling Catheter Indwelling Catheter External Catheter - Labs CBC & Chem 7: 12/23/24 04:58 12/23/24 04:58 Labs: Abnormal Lab Results - Last 24 Hours (Table) 12/22/24 12/22/24 12/22/24 Range/Units 12:06 18:44 18:44 WBC 1.65 L (4.50-10.00) 10*3/uL RBC 2.16 L (4.40-5.60) 10*6/uL Hgb 7.6 L (13.0-17.0) g/dL Hct 22.2 L (39.6-50.0) % MCV 102.8 H (80.0-97.0) fL MCH 35.2 H (27.0-32.0) pg Plt Count 52 L (140-440) 10*3/uL Lymphocytes # (Manual) (1.0-4.8) k/uL Sodium 126 L (137-145) mmol/L Chloride 96 L (98-107) mmol/L Creatinine 0.35 L (0.66-1.25) mg/dL Glucose 146 H (74-99) mg/dL POC Glucose (mg/dL) 141 H (70-110) mg/dL Calcium 7.3 L (8.4-10.2) mg/dL Magnesium 1.4 L (1.6-2.3) mg/dL Crossmatch 12/22/24 12/23/24 12/23/24 Range/Units 22:43 03:39 03:39 WBC 2.55 L (4.50-10.00) 10*3/uL RBC 1.77 L (4.40-5.60) 10*6/uL Hgb 6.4 L* (13.0-17.0) g/dL Hct 17.4 L* (39.6-50.0) % MCV 98.3 H (80.0-97.0) fL MCH 36.2 H (27.0-32.0) pg Plt Count 45 L (140-440) 10*3/uL Lymphocytes # (Manual) 0.61 L (1.0-4.8) k/uL Sodium (137-145) mmol/L Chloride (98-107) mmol/L Creatinine 0.33 L (0.66-1.25) mg/dL Glucose (74-99) mg/dL POC Glucose (mg/dL) 162 H (70-110) mg/dL Calcium (8.4-10.2) mg/dL Magnesium (1.6-2.3) mg/dL Crossmatch 12/23/24 12/23/24 12/23/24 Range/Units 04:58 04:58 04:58 WBC 2.68 L (4.50-10.00) 10*3/uL RBC 1.75 L (4.40-5.60) 10*6/uL Hgb 6.3 L* (13.0-17.0) g/dL Hct 18.0 L* (39.6-50.0) % MCV 102.9 H (80.0-97.0) fL MCH 36.0 H (27.0-32.0) pg Plt Count 47 L (140-440) 10*3/uL Lymphocytes # (Manual) (1.0-4.8) k/uL Sodium 127 L (137-145) mmol/L Chloride (98-107) mmol/L Creatinine 0.29 L (0.66-1.25) mg/dL Glucose (74-99) mg/dL POC Glucose (mg/dL) (70-110) mg/dL Calcium 6.5 L (8.4-10.2) mg/dL Magnesium (1.6-2.3) mg/dL Crossmatch See Detail 12/23/24 12/23/24 Range/Units 05:04 11:44 WBC (4.50-10.00) 10*3/uL RBC (4.40-5.60) 10*6/uL Hgb (13.0-17.0) g/dL Hct (39.6-50.0) % MCV (80.0-97.0) fL MCH (27.0-32.0) pg Plt Count (140-440) 10*3/uL Lymphocytes # (Manual) (1.0-4.8) k/uL Sodium (137-145) mmol/L Chloride (98-107) mmol/L Creatinine (0.66-1.25) mg/dL Glucose (74-99) mg/dL POC Glucose (mg/dL) 111 H 116 H (70-110) mg/dL Calcium (8.4-10.2) mg/dL Magnesium (1.6-2.3) mg/dL Crossmatch Microbiology - Last 24 Hours (Table) 12/20/24 17:19 Gram Stain - Final Sputum Sputum Culture - Final Corynebacterium striatum group Serratia marcescens ssp marces Serratia marcescens 12/17/24 17:20 Blood Culture - Final Blood 12/21/24 10:50 Blood Culture - Preliminary Blood
--- NOTE | 2024-12-23 11:53 | P.PN ---
Subjective Progress Note Date: 12/23/24 Hospital course 74 year old M with PMH A-Fib, head and neck CA with PEG, CAD, systolic CHF, DM, HLD presents to the ED for lethargy, fever, wet cough and episodes of choking. In the ED he underwent extensive evaluation. BP 88/60, HR 76, T 97.2F, RR 18, 94% on RA. Labs significant for WBC 3.31, RBC 2.82, Hg 10.1, Hct 28.7, MCV 101.8, Plt 111, Na 128, Cl 92, BUN 29, Cr 0.46, glu 183, Lactic acid 2.3-1.7, T. Bili 1.9, alb 3. Amylase 41, Lipiase 43. UA neg LE or nitrite. COVID, RSV, Flu neg. EKG A-Fib with RVR rate 141. CXR showed bilateral infiltrates. Patient was started on Cardizem drip + Rocephin/Azithromycin and admitted for further workup and management. Subjective Yesterday patient had an aspiration episode and he was hypoxic. He was then tr ansferred to the ICU. This morning patient is on 10 L nasal cannula and satting well. Patient appears to be declining. I had a lengthy discussion with the about goals of care. agreed to DNR/DNI. At this time will think about hospice but is not ready for hospice and for sure. She has other family members that she wants to discuss with. Patient himself has no other family members besides . 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 ID is following Pulmonology following Will make patient n.p.o. for now as he appears to be aspirating his tube feeds. AFib with RVR: Patient is back in A-fib with RVR. He is currently on amiodarone drip. Metoprolol 25 mg PEG BID to TID. Cardiology following Discontinue Eliquis as platelets are less than 50 Pancytopenia suspect due to malignancy: signs of active bleeding. Transfuse if Hg < 7 or Plt < 10. Heme-Onc on board. This morning hemoglobin is 6.3. Will give 1 unit of PRBC. DM with hyperglycemia: Tube feeds resumed. POC glucose Q6H. Start MISS. Hypoglycemic precautions. 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 Stable CAD: Lipitor 20 mg PEG QHS. Metoprolol and Eliquis Systolic CHF: Not in acute exacerbation. Metoprolol as above. May benefit from ACEi + K sparing diuretic when improved. Head and neck CA with Pancytopenia: Discussed with oncology. Patient has a poor prognosis. is aware that his radiation therapy is palliative. Patient's last day of radiation therapy is 12/25/2024. Patient has been getting radiation therapy while in the hospital. I would recommend holding off on today since patient is on amiodarone drip. I do not believe at this time and patient are ready for hospice. Will defer hospice discussions to oncology service. Resolved: Hypoglycemia, Lactic acidosis CODE STATUS: FULL CODE DVT Prophylaxis: Holding anticoagulation due to thrombocytopenia GI Prophylaxis: Protonix IV Designated medical POA if patient is not able to make medical decisions for themselves: . Patient's prognosis is guarded. Objective - Vital Signs Vital signs: Vital Signs Temp 98.5 F 12/23/24 10:50 Pulse 102 H 12/23/24 10:50 Resp 24 12/23/24 10:50 BP 116/59 12/23/24 10:50 Pulse Ox 98 12/23/24 10:00 FiO2 Intake & Output 12/22/24 12/23/24 12/23/24 18:59 06:59 18:59 Intake Total 750 983.616 463.32 Output Total 225 685 185 Balance 525 298.616 278.32 Weight 78.5 kg 83.6 kg Intake: IV 10 153.32 0.9 Normal Saline @ KVO 10 20 Amiodarone 450 mg In 33.32 Dextrose 5% in Water 250 ml @ 0.5 MG/MIN 16.667 mls/hr IV .Q15H [facility] Rx#: [id number] Cefepime 2 gm In Sodium 100 Chloride 0.9% 100 ml @ 25 mls/hr IVPB Q8HR [facility] Rx# :[id number] Intake, IV Titration 500 983.616 Amount Amiodarone 360 mg In 200 Dextrose 5% in Water 200 ml @ 1 MG/MIN 33.333 mls/ hr IV .Q6H [facility] Rx#: [id number] Amiodarone 450 mg In 233.616 Dextrose 5% in Water 250 ml @ 0.5 MG/MIN 16.667 mls/hr IV .Q15H [facility] Rx#: [id number] Cefepime 2 gm In Sodium 100 Chloride 0.9% 100 ml @ 25 mls/hr IVPB Q8HR [facility] Rx# :[id number] Magnesium Sulfate-D5w Pmx 200 1 gm In Dextrose/Water 1 100ml.bag @ 100 mls/hr IVPB Q1H [facility] Rx#: [id number] Vancomycin 1,250 mg In 250 Sodium Chloride 0.9% 250 ml @ 125 mls/hr IVPB Q12H [facility] Rx#:[id number] Vancomycin 1,500 mg In 500 Sodium Chloride 0.9% 500 ml 500 ml @ 167 mls/hr IVPB ONCE [facility] Rx#: [id number] Tube Feeding 240 Blood Product 310 Rc Irr As1 Unit 310 [id number] Output: Gastric Drainage 250 Urine 225 435 185 Other: Voiding Method Diaper Indwelling Catheter External Catheter - Labs CBC & Chem 7: 12/23/24 04:58 12/23/24 04:58 Labs: Abnormal Lab Results - Last 24 Hours (Table) 12/22/24 12/22/24 12/22/24 Range/Units 12:06 18:44 18:44 WBC 1.65 L (4.50-10.00) 10*3/uL RBC 2.16 L (4.40-5.60) 10*6/uL Hgb 7.6 L (13.0-17.0) g/dL Hct 22.2 L (39.6-50.0) % MCV 102.8 H (80.0-97.0) fL MCH 35.2 H (27.0-32.0) pg Plt Count 52 L (140-440) 10*3/uL Lymphocytes # (Manual) (1.0-4.8) k/uL Sodium 126 L (137-145) mmol/L Chloride 96 L (98-107) mmol/L Creatinine 0.35 L (0.66-1.25) mg/dL Glucose 146 H (74-99) mg/dL POC Glucose (mg/dL) 141 H (70-110) mg/dL Calcium 7.3 L (8.4-10.2) mg/dL Magnesium 1.4 L (1.6-2.3) mg/dL Crossmatch 12/22/24 12/23/24 12/23/24 Range/Units 22:43 03:39 03:39 WBC 2.55 L (4.50-10.00) 10*3/uL RBC 1.77 L (4.40-5.60) 10*6/uL Hgb 6.4 L* (13.0-17.0) g/dL Hct 17.4 L* (39.6-50.0) % MCV 98.3 H (80.0-97.0) fL MCH 36.2 H (27.0-32.0) pg Plt Count 45 L (140-440) 10*3/uL Lymphocytes # (Manual) 0.61 L (1.0-4.8) k/uL Sodium (137-145) mmol/L Chloride (98-107) mmol/L Creatinine 0.33 L (0.66-1.25) mg/dL Glucose (74-99) mg/dL POC Glucose (mg/dL) 162 H (70-110) mg/dL Calcium (8.4-10.2) mg/dL Magnesium (1.6-2.3) mg/dL Crossmatch 12/23/24 12/23/24 12/23/24 Range/Units 04:58 04:58 04:58 WBC 2.68 L (4.50-10.00) 10*3/uL RBC 1.75 L (4.40-5.60) 10*6/uL Hgb 6.3 L* (13.0-17.0) g/dL Hct 18.0 L* (39.6-50.0) % MCV 102.9 H (80.0-97.0) fL MCH 36.0 H (27.0-32.0) pg Plt Count 47 L (140-440) 10*3/uL Lymphocytes # (Manual) (1.0-4.8) k/uL Sodium 127 L (137-145) mmol/L Chloride (98-107) mmol/L Creatinine 0.29 L (0.66-1.25) mg/dL Glucose (74-99) mg/dL POC Glucose (mg/dL) (70-110) mg/dL Calcium 6.5 L (8.4-10.2) mg/dL Magnesium (1.6-2.3) mg/dL Crossmatch See Detail 12/23/24 Range/Units 05:04 WBC (4.50-10.00) 10*3/uL RBC (4.40-5.60) 10*6/uL Hgb (13.0-17.0) g/dL Hct (39.6-50.0) % MCV (80.0-97.0) fL MCH (27.0-32.0) pg Plt Count (140-440) 10*3/uL Lymphocytes # (Manual) (1.0-4.8) k/uL Sodium (137-145) mmol/L Chloride (98-107) mmol/L Creatinine (0.66-1.25) mg/dL Glucose (74-99) mg/dL POC Glucose (mg/dL) 111 H (70-110) mg/dL Calcium (8.4-10.2) mg/dL Magnesium (1.6-2.3) mg/dL Crossmatch Microbiology - Last 24 Hours (Table) 12/17/24 17:20 Blood Culture - Final Blood 12/21/24 10:50 Blood Culture - Preliminary Blood 12/20/24 17:19 Gram Stain - Preliminary Sputum Sputum Culture - Preliminary Corynebacterium striatum group Serratia marcescens ssp marces
[2024-12-23] MEDS ORDERED: DIGOXIN 62.5 MCG TAB PO SCH (12:00)
--- NOTE | 2024-12-23 12:01 | P.PN ---
Subjective Progress Note Date: 12/23/24 Patient is being followed for hyponatremia. Currently off of IV fluids and maintained on sodium chloride tabs. Had aspiration event yesterday and transferred to ICU. No acute distress Examination of the heart S1 and S2 Examination of the lungs bilateral breath sounds are heard Abdomen is soft nontender, PEG tube in place Examination of lower extremities shows no evidence of edema Objective - Vital Signs Vital signs: Vital Signs Temp 98.4 F 12/23/24 08:38 Pulse 100 12/23/24 09:00 Resp 24 12/23/24 09:00 BP 118/68 12/23/24 09:00 Pulse Ox 98 12/23/24 09:00 FiO2 Intake & Output 12/22/24 12/23/24 12/23/24 18:59 06:59 18:59 Intake Total 750 983.616 153.32 Output Total 225 685 185 Balance 525 298.616 -31.68 Weight 78.5 kg 83.6 kg Intake: IV 10 153.32 0.9 Normal Saline @ KVO 10 20 Amiodarone 450 mg In 33.32 Dextrose 5% in Water 250 ml @ 0.5 MG/MIN 16.667 mls/hr IV .Q15H [facility] Rx#: [id number] Cefepime 2 gm In Sodium 100 Chloride 0.9% 100 ml @ 25 mls/hr IVPB Q8HR [facility] Rx# :[id number] Intake, IV Titration 500 983.616 Amount Amiodarone 360 mg In 200 Dextrose 5% in Water 200 ml @ 1 MG/MIN 33.333 mls/ hr IV .Q6H [facility] Rx#: [id number] Amiodarone 450 mg In 233.616 Dextrose 5% in Water 250 ml @ 0.5 MG/MIN 16.667 mls/hr IV .Q15H [facility] Rx#: [id number] Cefepime 2 gm In Sodium 100 Chloride 0.9% 100 ml @ 25 mls/hr IVPB Q8HR [facility] Rx# :[id number] Magnesium Sulfate-D5w Pmx 200 1 gm In Dextrose/Water 1 100ml.bag @ 100 mls/hr IVPB Q1H [facility] Rx#: [id number] Vancomycin 1,250 mg In 250 Sodium Chloride 0.9% 250 ml @ 125 mls/hr IVPB Q12H [facility] Rx#:[id number] Vancomycin 1,500 mg In 500 Sodium Chloride 0.9% 500 ml 500 ml @ 167 mls/hr IVPB ONCE [facility] Rx#: [id number] Tube Feeding 240 Blood Product 0 Unit 0 Output: Gastric Drainage 250 Urine 225 435 185 Other: Voiding Method Diaper Indwelling Catheter External Catheter - Labs CBC & Chem 7: 12/23/24 04:58 12/23/24 04:58 Labs: Abnormal Lab Results - Last 24 Hours (Table) 12/22/24 12/22/24 12/22/24 Range/Units 12:06 18:44 18:44 WBC 1.65 L (4.50-10.00) 10*3/uL RBC 2.16 L (4.40-5.60) 10*6/uL Hgb 7.6 L (13.0-17.0) g/dL Hct 22.2 L (39.6-50.0) % MCV 102.8 H (80.0-97.0) fL MCH 35.2 H (27.0-32.0) pg Plt Count 52 L (140-440) 10*3/uL Lymphocytes # (Manual) (1.0-4.8) k/uL Sodium 126 L (137-145) mmol/L Chloride 96 L (98-107) mmol/L Creatinine 0.35 L (0.66-1.25) mg/dL Glucose 146 H (74-99) mg/dL POC Glucose (mg/dL) 141 H (70-110) mg/dL Calcium 7.3 L (8.4-10.2) mg/dL Magnesium 1.4 L (1.6-2.3) mg/dL Crossmatch 12/22/24 12/23/24 12/23/24 Range/Units 22:43 03:39 03:39 WBC 2.55 L (4.50-10.00) 10*3/uL RBC 1.77 L (4.40-5.60) 10*6/uL Hgb 6.4 L* (13.0-17.0) g/dL Hct 17.4 L* (39.6-50.0) % MCV 98.3 H (80.0-97.0) fL MCH 36.2 H (27.0-32.0) pg Plt Count 45 L (140-440) 10*3/uL Lymphocytes # (Manual) 0.61 L (1.0-4.8) k/uL Sodium (137-145) mmol/L Chloride (98-107) mmol/L Creatinine 0.33 L (0.66-1.25) mg/dL Glucose (74-99) mg/dL POC Glucose (mg/dL) 162 H (70-110) mg/dL Calcium (8.4-10.2) mg/dL Magnesium (1.6-2.3) mg/dL Crossmatch 12/23/24 12/23/24 12/23/24 Range/Units 04:58 04:58 04:58 WBC 2.68 L (4.50-10.00) 10*3/uL RBC 1.75 L (4.40-5.60) 10*6/uL Hgb 6.3 L* (13.0-17.0) g/dL Hct 18.0 L* (39.6-50.0) % MCV 102.9 H (80.0-97.0) fL MCH 36.0 H (27.0-32.0) pg Plt Count 47 L (140-440) 10*3/uL Lymphocytes # (Manual) (1.0-4.8) k/uL Sodium 127 L (137-145) mmol/L Chloride (98-107) mmol/L Creatinine 0.29 L (0.66-1.25) mg/dL Glucose (74-99) mg/dL POC Glucose (mg/dL) (70-110) mg/dL Calcium 6.5 L (8.4-10.2) mg/dL Magnesium (1.6-2.3) mg/dL Crossmatch See Detail 12/23/24 Range/Units 05:04 WBC (4.50-10.00) 10*3/uL RBC (4.40-5.60) 10*6/uL Hgb (13.0-17.0) g/dL Hct (39.6-50.0) % MCV (80.0-97.0) fL MCH (27.0-32.0) pg Plt Count (140-440) 10*3/uL Lymphocytes # (Manual) (1.0-4.8) k/uL Sodium (137-145) mmol/L Chloride (98-107) mmol/L Creatinine (0.66-1.25) mg/dL Glucose (74-99) mg/dL POC Glucose (mg/dL) 111 H (70-110) mg/dL Calcium (8.4-10.2) mg/dL Magnesium (1.6-2.3) mg/dL Crossmatch Microbiology - Last 24 Hours (Table) 12/17/24 17:20 Blood Culture - Final Blood 12/21/24 10:50 Blood Culture - Preliminary Blood 12/20/24 17:19 Gram Stain - Preliminary Sputum Sputum Culture - Preliminary Corynebacterium striatum group Serratia marcescens ssp marces Assessment and Plan Assessment: 1. Hyponatremia, currently euvolemic, status post IV fluids and Lasix. Sodium improved to 127 today. I will hold off on IV fluids and decrease free water with tube feedings. Since blood pressure is low patient may benefit from sodium chloride tabs. Urine osmolality at 621 with urine sodium at 82 suggesting possible underlying SIADH. 2. Pneumonia maintained on antibiotics 3. A-fib/flutter maintained on Eliquis and Lopressor 4. History of CVA Plan: Hold IV fluids Limit free water with tube feedings Continue sodium chloride tabs Will consider Tolvaptan if sodium worsens
[2024-12-23] MEDS: IPRATROPIUM-ALBUTEROL 3 ML NEB INHALATION SCH (12:25)
[2024-12-23] MEDS: AMIODARONE 200 MG TAB PO SCH (12:37)
[2024-12-23 12:42] LABS: HCT 22.1 % (39.6-50.0); MCH 34.5 pg (27.0-32.0); MCHC 35.7 g/dL (32.0-37.0); MCV 96.5 fL (80.0-97.0); RBC 2.29 10*6/uL (4.40-5.60); RDW 18.5 % (11.5-14.5); WBC 4.39 10*3/uL (4.50-10.00)
[2024-12-23 12:52] LABS: HGB 7.9 g/dL (13.0-17.0)
[2024-12-23 12:53] LABS: Platelet Count 43 10*3/uL (140-440)
[2024-12-23] MEDS: DIGOXIN 125 MCG TAB PO SCH (13:44)
--- NOTE | 2024-12-23 16:24 | P.PN ---
Subjective Progress Note Date: 12/23/24 Principal diagnosis: Reason for follow-up is fever/pneumonia Patient is a 74-year-old male with a past medical history significant for Atrial Fibrillation, Cancer, Diabetes Mellitus, Hyperlipidemia, Myocardial Infarction ([place]) he did have cancer of the cervical spine C1-C2 for the patient has received chemo completed in June 2024 and has received radiation therapy admitted to hospital with weakness noticed to have a fever prompting this consultation. On today's evaluation that is 12/24/2023, patient did have a temperature of 98.5 F this morning patient has been transferred back to the ICU there was concern for possible aspiration patient is requiring high flow nasal cannula oxygen he is awake denies any chest pain or worsening cough no vomiting or diarrhea reported by the nursing staff. Patient white count is 4.39 sputum culture with Corynebacterium and Serratia blood cultures are pending Objective - Vital Signs Vital signs: Vital Signs Temp 99.3 F 12/23/24 12:00 Pulse 96 12/23/24 15:38 Resp 16 12/23/24 13:00 BP 109/66 12/23/24 13:00 Pulse Ox 97 12/23/24 13:00 FiO2 Intake & Output 12/22/24 12/23/24 12/23/24 18:59 06:59 18:59 Intake Total 750 983.616 813.30 Output Total 225 685 470 Balance 525 298.616 343.30 Weight 78.5 kg 83.6 kg Intake: IV 10 253.30 0.9 Normal Saline @ KVO 10 70 Amiodarone 450 mg In 83.30 Dextrose 5% in Water 250 ml @ 0.5 MG/MIN 16.667 mls/hr IV .Q15H [facility] Rx#: [id number] Cefepime 2 gm In Sodium 100 Chloride 0.9% 100 ml @ 25 mls/hr IVPB Q8HR [facility] Rx# :[id number] Intake, IV Titration 500 983.616 250 Amount Amiodarone 360 mg In 200 Dextrose 5% in Water 200 ml @ 1 MG/MIN 33.333 mls/ hr IV .Q6H [facility] Rx#: [id number] Amiodarone 450 mg In 233.616 Dextrose 5% in Water 250 ml @ 0.5 MG/MIN 16.667 mls/hr IV .Q15H [facility] Rx#: [id number] Cefepime 2 gm In Sodium 100 Chloride 0.9% 100 ml @ 25 mls/hr IVPB Q8HR [facility] Rx# :[id number] Magnesium Sulfate-D5w Pmx 200 1 gm In Dextrose/Water 1 100ml.bag @ 100 mls/hr IVPB Q1H [facility] Rx#: [id number] Vancomycin 1,250 mg In 250 250 Sodium Chloride 0.9% 250 ml @ 125 mls/hr IVPB Q12H [facility] Rx#:[id number] Vancomycin 1,500 mg In 500 Sodium Chloride 0.9% 500 ml 500 ml @ 167 mls/hr IVPB ONCE [facility] Rx#: [id number] Tube Feeding 240 Blood Product 310 Rc Irr As1 Unit 310 [id number] Output: Gastric Drainage 250 Urine 225 435 470 Other: Voiding Method Diaper Indwelling Catheter Indwelling Catheter External Catheter # Bowel Movements 1 - Exam GENERAL DESCRIPTION: An elderly male lying in bed in no distress RESPIRATORY SYSTEM: Unlabored breathing , decreased breath sounds at bases HEART: S1 S2 regular rate and rhythm , ABDOMEN: Soft , no tenderness EXTREMITIES: No edema feet - Labs CBC & Chem 7: 12/23/24 12:32 12/23/24 04:58 Labs: Abnormal Lab Results - Last 24 Hours (Table) 12/22/24 12/22/24 12/22/24 Range/Units 18:44 18:44 22:43 WBC 1.65 L (4.50-10.00) 10*3/uL RBC 2.16 L (4.40-5.60) 10*6/uL Hgb 7.6 L (13.0-17.0) g/dL Hct 22.2 L (39.6-50.0) % MCV 102.8 H (80.0-97.0) fL MCH 35.2 H (27.0-32.0) pg Plt Count 52 L (140-440) 10*3/uL Lymphocytes # (Manual) (1.0-4.8) k/uL Sodium 126 L (137-145) mmol/L Chloride 96 L (98-107) mmol/L Creatinine 0.35 L (0.66-1.25) mg/dL Glucose 146 H (74-99) mg/dL POC Glucose (mg/dL) 162 H (70-110) mg/dL Calcium 7.3 L (8.4-10.2) mg/dL Magnesium 1.4 L (1.6-2.3) mg/dL Crossmatch 12/23/24 12/23/24 12/23/24 Range/Units 03:39 03:39 04:58 WBC 2.55 L 2.68 L (4.50-10.00) 10*3/uL RBC 1.77 L 1.75 L (4.40-5.60) 10*6/uL Hgb 6.4 L* 6.3 L* (13.0-17.0) g/dL Hct 17.4 L* 18.0 L* (39.6-50.0) % MCV 98.3 H 102.9 H (80.0-97.0) fL MCH 36.2 H 36.0 H (27.0-32.0) pg Plt Count 45 L 47 L (140-440) 10*3/uL Lymphocytes # (Manual) 0.61 L (1.0-4.8) k/uL Sodium (137-145) mmol/L Chloride (98-107) mmol/L Creatinine 0.33 L (0.66-1.25) mg/dL Glucose (74-99) mg/dL POC Glucose (mg/dL) (70-110) mg/dL Calcium (8.4-10.2) mg/dL Magnesium (1.6-2.3) mg/dL Crossmatch 12/23/24 12/23/24 12/23/24 Range/Units 04:58 04:58 05:04 WBC (4.50-10.00) 10*3/uL RBC (4.40-5.60) 10*6/uL Hgb (13.0-17.0) g/dL Hct (39.6-50.0) % MCV (80.0-97.0) fL MCH (27.0-32.0) pg Plt Count (140-440) 10*3/uL Lymphocytes # (Manual) (1.0-4.8) k/uL Sodium 127 L (137-145) mmol/L Chloride (98-107) mmol/L Creatinine 0.29 L (0.66-1.25) mg/dL Glucose (74-99) mg/dL POC Glucose (mg/dL) 111 H (70-110) mg/dL Calcium 6.5 L (8.4-10.2) mg/dL Magnesium (1.6-2.3) mg/dL Crossmatch See Detail 12/23/24 12/23/24 Range/Units 11:44 12:32 WBC 4.39 L (4.50-10.00) 10*3/uL RBC 2.29 L (4.40-5.60) 10*6/uL Hgb 7.9 L D (13.0-17.0) g/dL Hct 22.1 L (39.6-50.0) % MCV (80.0-97.0) fL MCH 34.5 H (27.0-32.0) pg Plt Count 43 L (140-440) 10*3/uL Lymphocytes # (Manual) (1.0-4.8) k/uL Sodium (137-145) mmol/L Chloride (98-107) mmol/L Creatinine (0.66-1.25) mg/dL Glucose (74-99) mg/dL POC Glucose (mg/dL) 116 H (70-110) mg/dL Calcium (8.4-10.2) mg/dL Magnesium (1.6-2.3) mg/dL Crossmatch Microbiology - Last 24 Hours (Table) 12/20/24 17:19 Legionella Culture - Preliminary Sputum 12/22/24 06:01 Blood Culture - Preliminary Blood 12/20/24 17:19 Gram Stain - Final Sputum Sputum Culture - Final Corynebacterium striatum group Serratia marcescens ssp marces Serratia marcescens 12/17/24 17:20 Blood Culture - Final Blood 12/21/24 10:50 Blood Culture - Preliminary Blood Assessment and Plan (1) Pneumonia Current Visit: Yes Status: Acute Priority: High Code(s): J18.9 - PNEUMONIA, UNSPECIFIED ORGANISM SNOMED Code(s): 556347546 (2) Sepsis Current Visit: Yes Status: Acute Priority: High Code(s): A41.9 - SEPSIS, UNSPECIFIED ORGANISM SNOMED Code(s): 15360482 Plan: 1patient with a fever in this patient who did have a history of C1-C2 cervical spine cancer status post chemoradiation therapy did have difficulty swallowing requiring PEG tube placement admitted to the hospital 4 days ago predominantly with nausea vomiting and some abdominal discomfort and there is concern for possible aspiration pneumonitis with the lack etiology however abdominal source not entirely excluded 2-sputum is growing corynebacterium stratum as well as Serratia that is sensitive to cefepime 3-patient did have CT of abdominal pelvis with contrast did not show any intra- abdominal pathology there was concern for bibasilar opacities/pneumonia 4-patient is currently being treated cefepime and vancomycin and monitor clinical course closely Dictation was produced using [employer] dictation software. please excuse any grammatical, word or spelling errors. Time with Patient: Less than 30
[2024-12-23 17:52] LABS: Glucose,Whole Blood 121 mg/dL (70-110)
[2024-12-23 23:17] LABS: Glucose,Whole Blood 103 mg/dL (70-110)
[2024-12-24] MEDS: VANCOMYCIN TROUGH DUE 1 EACH MISC MISCELLANE ONE (01:47)
[2024-12-24 02:05] LABS: African American GFR (CKD) >90 (>60 ml/min/1.73 sqM); Non-African American GFR(CKD) >90 (>60 ml/min/1.73 sqM)
[2024-12-24 05:15] LABS: Glucose,Whole Blood 96 mg/dL (70-110)
[2024-12-24 06:07] LABS: HCT 21.3 % (39.6-50.0); HGB 7.5 g/dL (13.0-17.0); RBC 2.21 10*6/uL (4.40-5.60); WBC 3.75 10*3/uL (4.50-10.00)
[2024-12-24 06:08] LABS: MCH 33.8 pg (27.0-32.0); MCHC 35.0 g/dL (32.0-37.0); MCV 96.4 fL (80.0-97.0); RDW 19.7 % (11.5-14.5)
[2024-12-24 06:19] LABS: ALT 14 U/L (4-49); AST 18 U/L (17-59); African American GFR (CKD) >90 (>60 ml/min/1.73 sqM); Albumin 1.9 g/dL (3.5-5.0); Alkaline Phosphatase 87 U/L (38-126); Anion Gap 4 mmol/L; Blood Urea Nitrogen 14 mg/dL (9-20); Calcium 7.1 mg/dL (8.4-10.2); Carbon Dioxide 25 mmol/L (22-30); Chloride 97 mmol/L (98-107); Glucose 91 mg/dL (74-99); Magnesium 1.6 mg/dL (1.6-2.3); Non-African American GFR(CKD) >90 (>60 ml/min/1.73 sqM); Potassium 3.4 mmol/L (3.5-5.1); Sodium 126 mmol/L (137-145); Total Protein 3.9 g/dL (6.3-8.2)
[2024-12-24 06:31] LABS: Platelet Count 49 10*3/uL (140-440)
[2024-12-24] MEDS ORDERED: Potassium Replacement Protocol 1 EACH MISC MISCELLANE PRN (06:36)
[2024-12-24] MEDS: MAGNESIUM SULFATE-D5W PMX 1 GM in DEXTROSE/WATER 1 100ML.BAG IVPB SCH (06:49)
[2024-12-24] MEDS: POTASSIUM BICARBONATE/CIT AC 20 MEQ TABLET.EFF NG-TUBE SCH (06:49)
--- NOTE | 2024-12-24 07:05 | XR ---
EXAMINATION TYPE: XR chest 1V portable DATE OF EXAM: 12/24/2024 COMPARISON: 12/23/2024 CLINICAL INDICATION: Male, 74 years old with history of follow up aspiration pna, ng tube placement; TECHNIQUE: Single frontal view of the chest is obtained. FINDINGS: The NG tube tip is in the stomach There is a mild decrease in the predominantly diffuse interstitial process in both lungs. There is no pneumothorax. There is no large pleural effusion. IMPRESSION: 1. No change in the NG tube. 2. Mild reduction in the diffuse bilateral cardiopulmonary process. [facility], , 12/24/2024 7:03 AM
[2024-12-24 07:13] LABS: Eosinophils # (M) 0.08 k/uL (0-0.7); Lymphocytes # (M) 0.23 k/uL (1.0-4.8); Neutrophils # (M) 3.45 k/uL (1.3-7.7); Neutrophils % (M) 64 %; Total Cells Counted 100
[2024-12-24] MEDS ORDERED: APIXABAN 5 MG TAB PEG/G-TUBE SCH (09:00)
--- NOTE | 2024-12-24 09:57 | P.PN ---
Subjective Progress Note Date: 12/24/24 Patient is a 74-year-old male with past medical history significant for head/neck cancer diagnosed back in April,. 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 Previously on carbo/Taxol, subsequently on Keytruda. PET scan from June, demonstr ating a 2.8 x 2.2 cm parapharyngeal mass. FDG avid left upper lobe pulmonary nodule. Since then, concerns for disease progression. MRI brain from Oct, 2024 showing a left pharyngeal mass larger than previous PET scan with extension through the jugular eason to the cerebellar pontine angle. With vasogenic edema in the adjacent cerebellum with some mass effect. Currently, undergoing radiation treatments. Also, takes oral Decadron. Chest CT angiogram from Oct, 2024 remarkable for increased size and number of pulmonary nodules. Largest nodule in the left upper lung measuring 2.1 cm. Additional multiple enlarged mediastinal lymph nodes. Did have issues with swallowing and did have a PEG tube placed at an outside facility. He has had multiple hospitalizations related to related complications of his cancer and treatments. He follows with his established oncologist Dr. De Jesus. Additional past medical history including hyperlipidemia, diabetes, atrial fibrillation, heart failure. Echocardiogram from July, estimating left ventricular ejection fraction of 45 to 50%. Patient currently being evaluated on the oncology unit. He is a poor historian. Apparently, brought into the emergency department back on 12/17/2024 for nausea, vomiting, and generalized weakness. Also, family was reporting fevers at home. Concerns of sepsis. While in the ED, noted to be in atrial fi brillation with RVR, started on Cardizem infusion for rate control. Blood pressure was marginal and the patient was fluid resuscitated with a total of 2.5 L of LR. Chest x-ray remarkable for cardiomegaly, pulmonary vascular congestion, and bibasilar airspace opacities. NT proBNP 2140. CBC with a WBC count of 3.47, hemoglobin 7.9 g/dL, platelets 91,000. CMP: Sodium 127, potassium 4.2, chloride 99, serum bicarb 22, BUN 17, creatinine 0.43, glucose 205. Lactic was elevated at 4.8 is down to 1.7. Urinalysis unremarkable for infection. Viral screen negative for influenza A/B, RSV, COVID. Urine Legionella antigen negative. Started empirically on Zosyn previously. No recorded fevers while inpatient. No observed coughing. He is on room air. Does not appear in any respiratory distress. LR infusing at 75 mL/h. Cardizem has previously been discontinued. Most recent vital signs including a temperature of 97.4 F, heart rate 88 bpm, blood pressure 99/60 mmHg, nontachypneic, SpO2 recorded at 93% on room air. The patient is seen today December 20, 2024 in follow-up on the regular medical floor. He is currently awake and alert. Sitting up in bed. He has a loose congested cough. He is maintaining good O2 saturations in the mid 90s on room air oxygen. He has been afebrile. Slightly tachycardic. Follow-up chest x-ray shows similar bibasilar patchy airspace opacities. Blood culture reveals no growth. White count 1.87. Hemoglobin 7.5. Platelets 65,000. Sodium 125. Potassium 3.8. Bicarb 23. BUN 8. Creatinine 0.26. Glucose 106. proBNP 3260. Procalcitonin was negative at 0.35. TSH 2.16. He remains anticoagulated with Eliquis. Being nourished with Jevity 1.5 bolus tube feedings of 240 mL 6 times per day. Normal saline at 50 mL/h. The patient is seen today December 21, 2024 in follow-up on the regular medical floor. He is currently resting in bed. In no acute distress. Maintaining O2 saturations in the 90s on room air oxygen. He remains on Zosyn. Blood culture revealed no growth. Sputum culture pending. He did have a temperature of 101.7 last evening. White count 3.1. Hemoglobin 9.2. Platelets 74,000. Sodium 127. Potassium 4.0. Bicarb 22. BUN 11. Creatinine 0.39. Glucose 190. He is continued on Jevity 1.5 bolus feedings. Remains on normal saline at 50 mL/h. Scopolamine patch in place. The patient is seen today December 22, 2024 in follow-up in the intensive care unit. He was placed here as a 3 S. overflow patient as he developed atrial fibrillation with rapid ventricular response, hypoxemia and thick secretions. He is currently sitting up in bed. Awake and alert in no acute distress. Maintaining O2 saturations in the 90s on 2 L/min per nasal cannula. Chest x-ray showed cardiomegaly with mild interstitial changes and mild interstitial pulmonary edema. CT scan of the abdomen and pelvis revealed no evidence of bowel obstruction. PEG tube in appropriate position. White count 1.79. Hemoglobin 7.0. Platelets 51,000. Sodium 07/13/2026. Potassium 3.4. Bicarb 27. BUN 13. Creatinine 0.34. Procalcitonin again negative at 0.24. Cortisol low at 2.9. He is currently on amiodarone drip at 1 mg/min. He is anticoagulat ed with Eliquis. He remains on Jevity tube feedings. Remains on bronchodilators. Antibiotics in the form of Zosyn. Scopolamine patch in place. The patient is seen today December 23, 2024 in follow-up in the intensive care unit. He had been moved out to [facility] yesterday but developed another episode of aspiration and was brought back into the intensive care unit. A nasogastric tube was inserted to assure gastric contents were not continuing to be aspirated. PEG tube remains in place. Abdominal x-ray revealed nonspecific bowel gas pattern without evidence of acute process. Today's chest x-ray shows ill-defined interstitial and small airspace infiltrates bilaterally. No significant change. Nasogastric tube in place. Sputum culture showing Serratia marcescens. Corynebacterium stratum group. White count 2.6. Hemoglobin 6.3. Platelets 47,000. Sodium 127. Potassium 4.0. Bicarb 23. BUN 13. Creatinine 0.29. Glucose 94. He is currently on cefepime and vancomycin. Remains on Du oNeb inhalations. Scopolamine patch in place. He is currently requiring 10 L high flow nasal cannula to maintain O2 saturations in the 90s. He is afebrile. In A-fib with heart rate in the 100s. He is currently on amiodarone at 0.5 mg/min. Continued on Lopressor. Eliquis on hold due to his anemia. Receiving 1 unit of packed red blood cells today. The patient is seen today December 24, 2024 in follow-up in the intensive care unit. He is currently sitting up in bed. Awake and alert. He is maintaining O2 saturations in the 90s on 2 L/min per nasal cannula. He has normal saline at 10 mL/h. He is receiving Jevity 1.5 at 10 mL/h via the PEG tube. He has been transition to oral amiodarone. Sputum cultures positive for Serratia marcescens. White count 3.75. Hemoglobin 7.5. Platelets 49,000. Sodium 126. Potassium 3.4. Bicarb 25. BUN 14. Creatinine 0.32. Chest x-ray revealed mild reduction in the diffuse bilateral cardiopulmonary process. He is currently afebrile. Slightly tachycardic. He remains on DuoNeb inhalations. Antibiotics in the form of cefepime. Objective - Vital Signs Vital signs: Vital Signs Temp 99.5 F 12/24/24 04:00 Pulse 120 H 12/24/24 08:57 Resp 18 12/24/24 07:00 BP 105/61 12/24/24 07:00 Pulse Ox 96 12/24/24 07:00 FiO2 Intake & Output 12/23/24 12/24/24 12/24/24 18:59 06:59 18:59 Intake Total 963.30 170 10 Output Total 665 445 30 Balance 298.30 -275 -20 Weight 85.4 kg Intake: IV 403.30 170 10 0.9 Normal Saline @ KVO 120 70 10 Amiodarone 450 mg In 83.30 Dextrose 5% in Water 250 ml @ 0.5 MG/MIN 16.667 mls/hr IV .Q15H [facility] Rx#: [id number] Cefepime 2 gm In Sodium 200 100 Chloride 0.9% 100 ml @ 25 mls/hr IVPB Q8HR [facility] Rx# :[id number] Intake, IV Titration 250 Amount Vancomycin 1,250 mg In 250 Sodium Chloride 0.9% 250 ml @ 125 mls/hr IVPB Q12H [facility] Rx#:[id number] Blood Product 310 Rc Irr As1 Unit 310 [id number] Output: Urine 665 445 30 Other: Voiding Method Indwelling Catheter Indwelling Catheter # Bowel Movements 1 - Exam GENERAL EXAM: Alert, 74-year-old male, resting in bed, on 2 L nasal cannula, in no apparent distress. HEAD: Normocephalic and atraumatic EYES: Normal reaction of pupils, equal size. NOSE: Clear with pink turbinates. Nasogastric tube secured in place. THROAT: No erythema or exudates. Dry mucous membranes. NECK: No masses, no JVD. CHEST: No chest wall deformity. LUNGS: Equal air entry with scattered rhonchi. Loose congested cough. CVS: S1 and S2 normal with no audible murmur, irregular rhythm. No extra heart sounds. ABDOMEN: No hepatosplenomegaly, active bowel sounds, no guarding or rigidity. PEG tube noted. SPINE: No scoliosis or deformity SKIN: No rashes CENTRAL NERVOUS SYSTEM: Patient is alert, only oriented to self, will follow some simple commands, no focal deficits, tone is normal in all 4 extremities. EXTREMITIES: There is no peripheral edema, clubbing, or cyanosis. Peripheral pulses are intact. - Labs CBC & Chem 7: 12/24/24 05:25 12/24/24 05:25 Labs: Abnormal Lab Results - Last 24 Hours (Table) 12/23/24 12/23/24 12/23/24 Range/Units 04:58 11:44 12:32 WBC 4.39 L (4.50-10.00) 10*3/uL RBC 2.29 L (4.40-5.60) 10*6/uL Hgb 7.9 L D (13.0-17.0) g/dL Hct 22.1 L (39.6-50.0) % MCH 34.5 H (27.0-32.0) pg Plt Count 43 L (140-440) 10*3/uL Immature Gran # (0.00-0.04) 10*3/uL Lymphocytes # (Manual) (1.0-4.8) k/uL Sodium (137-145) mmol/L Potassium (3.5-5.1) mmol/L Chloride (98-107) mmol/L Creatinine (0.66-1.25) mg/dL POC Glucose (mg/dL) 116 H (70-110) mg/dL Calcium (8.4-10.2) mg/dL Total Bilirubin (0.2-1.3) mg/dL Total Protein (6.3-8.2) g/dL Albumin (3.5-5.0) g/dL Crossmatch See Detail 12/23/24 12/24/24 12/24/24 Range/Units 17:51 01:06 05:25 WBC 3.75 L (4.50-10.00) 10*3/uL RBC 2.21 L (4.40-5.60) 10*6/uL Hgb 7.5 L (13.0-17.0) g/dL Hct 21.3 L (39.6-50.0) % MCH 33.8 H (27.0-32.0) pg Plt Count 49 L (140-440) 10*3/uL Immature Gran # 0.07 H (0.00-0.04) 10*3/uL Lymphocytes # (Manual) 0.23 L (1.0-4.8) k/uL Sodium (137-145) mmol/L Potassium (3.5-5.1) mmol/L Chloride (98-107) mmol/L Creatinine 0.23 L (0.66-1.25) mg/dL POC Glucose (mg/dL) 121 H (70-110) mg/dL Calcium (8.4-10.2) mg/dL Total Bilirubin (0.2-1.3) mg/dL Total Protein (6.3-8.2) g/dL Albumin (3.5-5.0) g/dL Crossmatch 12/24/24 Range/Units 05:25 WBC (4.50-10.00) 10*3/uL RBC (4.40-5.60) 10*6/uL Hgb (13.0-17.0) g/dL Hct (39.6-50.0) % MCH (27.0-32.0) pg Plt Count (140-440) 10*3/uL Immature Gran # (0.00-0.04) 10*3/uL Lymphocytes # (Manual) (1.0-4.8) k/uL Sodium 126 L (137-145) mmol/L Potassium 3.4 L (3.5-5.1) mmol/L Chloride 97 L (98-107) mmol/L Creatinine 0.32 L (0.66-1.25) mg/dL POC Glucose (mg/dL) (70-110) mg/dL Calcium 7.1 L (8.4-10.2) mg/dL Total Bilirubin 1.6 H (0.2-1.3) mg/dL Total Protein 3.9 L (6.3-8.2) g/dL Albumin 1.9 L (3.5-5.0) g/dL Crossmatch Microbiology - Last 24 Hours (Table) 12/21/24 10:50 Blood Culture - Preliminary Blood 12/20/24 17:19 Legionella Culture - Preliminary Sputum 12/22/24 06:01 Blood Culture - Preliminary Blood 12/20/24 17:19 Gram Stain - Final Sputum Sputum Culture - Final Corynebacterium striatum group Serratia marcescens ssp marces Serratia marcescens Assessment and Plan Assessment: Intractable nausea and vomiting with concerns for aspiration, chest x-ray remarkable for cardiomegaly, mild PVC, and bibasilar airspace opacities. No pleural effusions. No pneumothoraces. Procalcitonin negative x2. Sputum cult ure showing Serratia marcescens Atrial fibrillation with rapid ventricular response, currently on an amiodarone drip. Anticoagulated with Eliquis, currently on hold due to anemia Metastatic oropharyngeal cancer, brain MRI from Oct, 2024 showing a left pharyngeal mass larger than previous PET scan with extension through the jugular eason to the cerebellar pontine angle. With vasogenic edema in the adjacent cerebellum with some mass effect. Chest CT angiogram from Oct, 2024 remarkable for increased size and number of pulmonary nodules. Largest nodule in the left upper lung measuring 2.1 cm. Additional multiple enlarged mediastinal lymph nodes Altered mental status, likely secondary to above Chronic dysphagia and previous PEG tube placement Pancytopenia with hemoglobin today 6.3. Receiving 1 unit of packed red blood cells Hyponatremia, consider SIADH History of heart failure with reduced ejection fraction History of hyperlipidemia Diabetes mellitus, insulin-dependent Plan: The patient was seen and evaluated Chest x-ray, labs and medications reviewed Sputum culture Serratia marcescens Currently on cefepime Currently on 2 L high flow nasal cannula Nasogastric tube remains in place Continued on Jevity tube feedings via PEG tube Remains in aspiration precautions Continue DuoNeb inhalations Scopolamine patch in place Prognosis is guarded Patient is a DNR CODE STATUS I have personally seen and examined the patient, performed the documentation and the assessment and plan as written. Number of minutes spent on the visit: 10 Dictation was produced using [employer] dictation software. Please excuse any grammatical, word or spelling errors.
--- NOTE | 2024-12-24 10:31 | P.PN ---
Subjective Progress Note Date: 12/24/24 Hospital course 74 year old M with PMH A-Fib, head and neck CA with PEG, CAD, systolic CHF, DM, HLD presents to the ED for lethargy, fever, wet cough and episodes of choking. In the ED he underwent extensive evaluation. BP 88/60, HR 76, T 97.2F, RR 18, 94% on RA. Labs significant for WBC 3.31, RBC 2.82, Hg 10.1, Hct 28.7, MCV 101.8, Plt 111, Na 128, Cl 92, BUN 29, Cr 0.46, glu 183, Lactic acid 2.3-1.7, T. Bili 1.9, alb 3. Amylase 41, Lipiase 43. UA neg LE or nitrite. COVID, RSV, Flu neg. EKG A-Fib with RVR rate 141. CXR showed bilateral infiltrates. Patient was started on Cardizem drip + Rocephin/Azithromycin and admitted for further workup and management. Subjective This morning patient is sitting upright with the help of his hospital bed trans ition to a chair. Family members at bedside. Patient is lethargic and somnolent. He appears to be a little bit more awake and alert today compared to yesterday. Physical exam General examination - Alert and Oriented 3 in NAD, ill-appearing Heart - + S1S2 no murmurs Lungs -diffuse rhonchi Abdomen soft NT ND +ve BS, + PEG tube Extremities - No edema [employer] - Moving all 4 extremities spontaneously Psych -slow to answer questions, lethargic Assessment and plan Sepsis and acute hypoxic respiratory failure secondary to recurrent aspiration PNA: Sputum culture growing Serratia and Corynebacterium Cefepime and vancomycin as per infectious disease recommendations Fevers within the past 24 hours Pulmonology following Will make patient n.p.o. for now as he appears to be aspirating his tube feeds. AFib with RVR: Discontinue Eliquis as platelets are less than 50 Patient weaned off amiodarone drip. Continue with metoprolol 25 mg p.o. twice daily Patient started on amiodarone 200 mg p.o. twice daily and digoxin 62.5 p.o. daily Heart rate in the 100s this morning. Pancytopenia suspect due to malignancy: signs of active bleeding. Transfuse if Hg < 7 or Plt < 10. Heme-Onc on board. This morning hemoglobin is 7.5. Platelets are 49.. DM with hyperglycemia: Is currently on hold due to aspiration. hyponatremia likely due to SIADH: Nephrology on board I reviewed notes from nephrology who started the patient on sodium chloride tabs 1 g twice daily This morning sodium is 126. Stable CAD: Lipitor 20 mg PEG QHS. Metoprolol and Eliquis Systolic CHF: Not in acute exacerbation. Metoprolol as above. Head and neck CA with Pancytopenia: Will need to have ongoing goals of care discussion with the Resolved: Hypoglycemia, Lactic acidosis CODE STATUS: I discussed with the on 12/23/2024. She agreed to DNR/DNI. DVT Prophylaxis: Holding anticoagulation due to thrombocytopenia GI Prophylaxis: Protonix IV Designated medical POA if patient is not able to make medical decisions for themselves: . Patient's prognosis is guarded. Objective - Vital Signs Vital signs: Vital Signs Temp 98.1 F 12/24/24 08:00 Pulse 108 H 12/24/24 10:00 Resp 22 12/24/24 10:00 BP 119/60 12/24/24 10:00 Pulse Ox 98 12/24/24 10:00 FiO2 Intake & Output 12/23/24 12/24/24 12/24/24 18:59 06:59 18:59 Intake Total 963.30 170 140 Output Total 665 445 205 Balance 298.30 -275 -65 Weight 85.4 kg Intake: IV 403.30 170 140 0.9 Normal Saline @ KVO 120 70 40 Amiodarone 450 mg In 83.30 Dextrose 5% in Water 250 ml @ 0.5 MG/MIN 16.667 mls/hr IV .Q15H AJIT Rx#: [id number] Cefepime 2 gm In Sodium 200 100 100 Chloride 0.9% 100 ml @ 25 mls/hr IVPB Q8HR AJIT Rx# :[id number] Intake, IV Titration 250 Amount Vancomycin 1,250 mg In 250 Sodium Chloride 0.9% 250 ml @ 125 mls/hr IVPB Q12H AJIT Rx#:[id number] Blood Product 310 Rc Irr As1 Unit 310 [id number] Output: Urine 665 445 205 Other: Voiding Method Indwelling Catheter Indwelling Catheter Indwelling Catheter # Bowel Movements 1 - Labs CBC & Chem 7: 12/24/24 05:25 12/24/24 05:25 Labs: Abnormal Lab Results - Last 24 Hours (Table) 12/23/24 12/23/24 12/23/24 Range/Units 04:58 11:44 12:32 WBC 4.39 L (4.50-10.00) 10*3/uL RBC 2.29 L (4.40-5.60) 10*6/uL Hgb 7.9 L D (13.0-17.0) g/dL Hct 22.1 L (39.6-50.0) % MCH 34.5 H (27.0-32.0) pg Plt Count 43 L (140-440) 10*3/uL Immature Gran # (0.00-0.04) 10*3/uL Lymphocytes # (Manual) (1.0-4.8) k/uL Sodium (137-145) mmol/L Potassium (3.5-5.1) mmol/L Chloride (98-107) mmol/L Creatinine (0.66-1.25) mg/dL POC Glucose (mg/dL) 116 H (70-110) mg/dL Calcium (8.4-10.2) mg/dL Total Bilirubin (0.2-1.3) mg/dL Total Protein (6.3-8.2) g/dL Albumin (3.5-5.0) g/dL Crossmatch See Detail 12/23/24 12/24/24 12/24/24 Range/Units 17:51 01:06 05:25 WBC 3.75 L (4.50-10.00) 10*3/uL RBC 2.21 L (4.40-5.60) 10*6/uL Hgb 7.5 L (13.0-17.0) g/dL Hct 21.3 L (39.6-50.0) % MCH 33.8 H (27.0-32.0) pg Plt Count 49 L (140-440) 10*3/uL Immature Gran # 0.07 H (0.00-0.04) 10*3/uL Lymphocytes # (Manual) 0.23 L (1.0-4.8) k/uL Sodium (137-145) mmol/L Potassium (3.5-5.1) mmol/L Chloride (98-107) mmol/L Creatinine 0.23 L (0.66-1.25) mg/dL POC Glucose (mg/dL) 121 H (70-110) mg/dL Calcium (8.4-10.2) mg/dL Total Bilirubin (0.2-1.3) mg/dL Total Protein (6.3-8.2) g/dL Albumin (3.5-5.0) g/dL Crossmatch 12/24/24 Range/Units 05:25 WBC (4.50-10.00) 10*3/uL RBC (4.40-5.60) 10*6/uL Hgb (13.0-17.0) g/dL Hct (39.6-50.0) % MCH (27.0-32.0) pg Plt Count (140-440) 10*3/uL Immature Gran # (0.00-0.04) 10*3/uL Lymphocytes # (Manual) (1.0-4.8) k/uL Sodium 126 L (137-145) mmol/L Potassium 3.4 L (3.5-5.1) mmol/L Chloride 97 L (98-107) mmol/L Creatinine 0.32 L (0.66-1.25) mg/dL POC Glucose (mg/dL) (70-110) mg/dL Calcium 7.1 L (8.4-10.2) mg/dL Total Bilirubin 1.6 H (0.2-1.3) mg/dL Total Protein 3.9 L (6.3-8.2) g/dL Albumin 1.9 L (3.5-5.0) g/dL Crossmatch Microbiology - Last 24 Hours (Table) 12/21/24 10:50 Blood Culture - Preliminary Blood 12/20/24 17:19 Legionella Culture - Preliminary Sputum 12/22/24 06:01 Blood Culture - Preliminary Blood 12/20/24 17:19 Gram Stain - Final Sputum Sputum Culture - Final Corynebacterium striatum group Serratia marcescens ssp marces Serratia marcescens
[2024-12-24 10:44] LABS: INR 1.1 (<1.2); Partial Thromboplastin Time 29.8 sec (22.0-30.0); Prothrombin Time 12.4 sec (10.0-12.5)
[2024-12-24 11:21] LABS: Fibrinogen 717.0 mg/dL (200-500)
[2024-12-24 11:22] LABS: Glucose,Whole Blood 121 mg/dL (70-110)
--- NOTE | 2024-12-24 12:22 | P.PN ---
Subjective Progress Note Date: 12/24/24 Patient is being followed for hyponatremia. Currently off of IV fluids and maintained on sodium chloride tabs. Sitting up in bed, feeling OK today. No new complaints. No acute distress Examination of the heart S1 and S2 Examination of the lungs bilateral breath sounds are heard Abdomen is soft nontender, PEG tube in place Examination of lower extremities shows no evidence of edema Objective - Vital Signs Vital signs: Vital Signs Temp 99.5 F 12/24/24 04:00 Pulse 120 H 12/24/24 08:57 Resp 18 12/24/24 07:00 BP 105/61 12/24/24 07:00 Pulse Ox 96 12/24/24 07:00 FiO2 Intake & Output 12/23/24 12/24/24 12/24/24 18:59 06:59 18:59 Intake Total 963.30 170 10 Output Total 665 445 30 Balance 298.30 -275 -20 Weight 85.4 kg Intake: IV 403.30 170 10 0.9 Normal Saline @ KVO 120 70 10 Amiodarone 450 mg In 83.30 Dextrose 5% in Water 250 ml @ 0.5 MG/MIN 16.667 mls/hr IV .Q15H AJIT Rx#: [id number] Cefepime 2 gm In Sodium 200 100 Chloride 0.9% 100 ml @ 25 mls/hr IVPB Q8HR AJIT Rx# :[id number] Intake, IV Titration 250 Amount Vancomycin 1,250 mg In 250 Sodium Chloride 0.9% 250 ml @ 125 mls/hr IVPB Q12H AJIT Rx#:[id number] Blood Product 310 Rc Irr As1 Unit 310 [id number] Output: Urine 665 445 30 Other: Voiding Method Indwelling Catheter Indwelling Catheter # Bowel Movements 1 - Labs CBC & Chem 7: 12/24/24 05:25 12/24/24 05:25 Labs: Abnormal Lab Results - Last 24 Hours (Table) 12/23/24 12/23/24 12/23/24 Range/Units 04:58 11:44 12:32 WBC 4.39 L (4.50-10.00) 10*3/uL RBC 2.29 L (4.40-5.60) 10*6/uL Hgb 7.9 L D (13.0-17.0) g/dL Hct 22.1 L (39.6-50.0) % MCH 34.5 H (27.0-32.0) pg Plt Count 43 L (140-440) 10*3/uL Immature Gran # (0.00-0.04) 10*3/uL Lymphocytes # (Manual) (1.0-4.8) k/uL Sodium (137-145) mmol/L Potassium (3.5-5.1) mmol/L Chloride (98-107) mmol/L Creatinine (0.66-1.25) mg/dL POC Glucose (mg/dL) 116 H (70-110) mg/dL Calcium (8.4-10.2) mg/dL Total Bilirubin (0.2-1.3) mg/dL Total Protein (6.3-8.2) g/dL Albumin (3.5-5.0) g/dL Crossmatch See Detail 12/23/24 12/24/24 12/24/24 Range/Units 17:51 01:06 05:25 WBC 3.75 L (4.50-10.00) 10*3/uL RBC 2.21 L (4.40-5.60) 10*6/uL Hgb 7.5 L (13.0-17.0) g/dL Hct 21.3 L (39.6-50.0) % MCH 33.8 H (27.0-32.0) pg Plt Count 49 L (140-440) 10*3/uL Immature Gran # 0.07 H (0.00-0.04) 10*3/uL Lymphocytes # (Manual) 0.23 L (1.0-4.8) k/uL Sodium (137-145) mmol/L Potassium (3.5-5.1) mmol/L Chloride (98-107) mmol/L Creatinine 0.23 L (0.66-1.25) mg/dL POC Glucose (mg/dL) 121 H (70-110) mg/dL Calcium (8.4-10.2) mg/dL Total Bilirubin (0.2-1.3) mg/dL Total Protein (6.3-8.2) g/dL Albumin (3.5-5.0) g/dL Crossmatch 12/24/24 Range/Units 05:25 WBC (4.50-10.00) 10*3/uL RBC (4.40-5.60) 10*6/uL Hgb (13.0-17.0) g/dL Hct (39.6-50.0) % MCH (27.0-32.0) pg Plt Count (140-440) 10*3/uL Immature Gran # (0.00-0.04) 10*3/uL Lymphocytes # (Manual) (1.0-4.8) k/uL Sodium 126 L (137-145) mmol/L Potassium 3.4 L (3.5-5.1) mmol/L Chloride 97 L (98-107) mmol/L Creatinine 0.32 L (0.66-1.25) mg/dL POC Glucose (mg/dL) (70-110) mg/dL Calcium 7.1 L (8.4-10.2) mg/dL Total Bilirubin 1.6 H (0.2-1.3) mg/dL Total Protein 3.9 L (6.3-8.2) g/dL Albumin 1.9 L (3.5-5.0) g/dL Crossmatch Microbiology - Last 24 Hours (Table) 12/21/24 10:50 Blood Culture - Preliminary Blood 12/20/24 17:19 Legionella Culture - Preliminary Sputum 12/22/24 06:01 Blood Culture - Preliminary Blood 12/20/24 17:19 Gram Stain - Final Sputum Sputum Culture - Final Corynebacterium striatum group Serratia marcescens ssp marces Serratia marcescens Assessment and Plan Assessment: 1. Hyponatremia, currently euvolemic, status post IV fluids and Lasix. Sodium unchanged at 126 today. Managed sodium chloride tabs. Urine osmolality at 621 with urine sodium at 82 suggesting possible underlying SIADH. 2. Pneumonia maintained on antibiotics 3. A-fib/flutter maintained on Eliquis and Lopressor 4. History of CVA Plan: Hold IV fluids Limit free water with tube feedings Continue sodium chloride tabs Will trial Tolvaptan today 7.5 mg x1
[2024-12-24] MEDS: TOLVAPTAN 15 MG TABLET PO ONE (13:04)
[2024-12-24 13:55] LABS: Ferritin 708.0 ng/mL (22.0-322.0); Iron 26.0 UG/DL (65-175); Total Iron Binding Capacity 129.0 UG/DL (228-460)
--- NOTE | 2024-12-24 14:13 | P.PN ---
Subjective Progress Note Date: 12/24/24 This is 74-year-old male patient with past medical history of persistent atrial fibrillation on Eliquis, CHF, hyperlipidemia, oropharyngeal cancer with G-tube feedings. Patient was seen yesterday by cardiology for A-fib with RVR, Cardizem drip was discontinued and patient maintained on oral medications. Lasix was placed on hold due to dehydration and hypotension. Patient remains in atrial fibrillation with controlled ventricular rate. Patient is maintained on Lopressor and Eliquis. Progress note 12/23/2024 Yesterday was transferred to ICU because of hemodynamic compromise, low blood pressure and heart rate along with worsening anemia. He was started on amiodarone drip got 2 doses of digoxin 125 mcg which controlled his heart rate. Heart rates were in 140s with SBP in low 100s. Hemoglobin was 6.4, repeat 6.3. No active source of bleeding was noticed however. Macrocytic anemia. 12/24/2024 Continues to be in atrial fibrillation heart rate in 120s, BP 146/61 Appears weak and frail Because blood pressure is better today, will go up on his metoprolol Physical examination: LUNGS: Scattered rhonchi. No intercostal retractions. HEART: Irregular rate and rhythm. No murmur. ABDOMEN: Soft No tenderness. EXTREMITIES: No pedal edema. No calf tenderness. NEUROLOGICAL: Patient is awake. Assessment: Acute on chronic anemia, Persistent A-fib with RVR Oropharyngeal cancer with G-tube feedings Aspiration pneumonia Hypovolemic hyponatremia Lactic acidosis, resolved Pancytopenia Plan: Hold anticoagulation. Replace hemoglobin with goal hemoglobin of 7. Increase metoprolol to 50 mg twice daily. Continue amiodarone 200 mg twice daily Digoxin 62.5 mcg every day. He got 2 doses of dig 125 mcg 12/22/2024 We are following the patient for A-fib RVR Overall prognosis is very guarded. Recommend goals of care discussion with family. Appreciate hematology recommendations for anemia treatment Poor candidate for long-term anticoagulation Objective - Vital Signs Vital signs: Vital Signs Temp 98.4 F 12/24/24 12:00 Pulse 112 H 12/24/24 14:00 Resp 23 12/24/24 14:00 BP 146/91 12/24/24 14:00 Pulse Ox 98 12/24/24 14:00 FiO2 Intake & Output 12/23/24 12/24/24 12/24/24 18:59 06:59 18:59 Intake Total 963.30 170 230 Output Total 665 445 361 Balance 298.30 -275 -131 Weight 85.4 kg Intake: IV 403.30 170 180 0.9 Normal Saline @ KVO 120 70 80 Amiodarone 450 mg In 83.30 Dextrose 5% in Water 250 ml @ 0.5 MG/MIN 16.667 mls/hr IV .Q15H AJIT Rx#: [id number] Cefepime 2 gm In Sodium 200 100 100 Chloride 0.9% 100 ml @ 25 mls/hr IVPB Q8HR AJIT Rx# :[id number] Intake, IV Titration 250 Amount Vancomycin 1,250 mg In 250 Sodium Chloride 0.9% 250 ml @ 125 mls/hr IVPB Q12H AJIT Rx#:[id number] Tube Feeding 40 Blood Product 310 Rc Irr As1 Unit 310 [id number] Other 10 Output: Urine 665 445 361 Other: Voiding Method Indwelling Catheter Indwelling Catheter Indwelling Catheter # Bowel Movements 1 - Labs CBC & Chem 7: 12/24/24 05:25 12/24/24 05:25 Labs: Abnormal Lab Results - Last 24 Hours (Table) 12/23/24 12/23/24 12/23/24 Range/Units 04:58 04:58 04:58 WBC (4.50-10.00) 10*3/uL RBC (4.40-5.60) 10*6/uL Hgb (13.0-17.0) g/dL Hct (39.6-50.0) % MCH (27.0-32.0) pg Plt Count (140-440) 10*3/uL Immature Gran # (0.00-0.04) 10*3/uL Lymphocytes # (Manual) (1.0-4.8) k/uL Retic Count (0.10-1.80) % Haptoglobin 290.0 H (31.2-198.0) mg/dL Fibrinogen (200-500) mg/dL Sodium (137-145) mmol/L Potassium (3.5-5.1) mmol/L Chloride (98-107) mmol/L Creatinine (0.66-1.25) mg/dL POC Glucose (mg/dL) (70-110) mg/dL Calcium (8.4-10.2) mg/dL Iron 26 L (65-175) UG/DL TIBC 129 L (228-460) UG/DL Transferrin 92.1 L (204.0-354.0) mg/dL Ferritin 708.0 H (22.0-322.0) ng/mL Total Bilirubin (0.2-1.3) mg/dL Lactate Dehydrogenase 289 H (120-246) U/L Total Protein (6.3-8.2) g/dL Albumin (3.5-5.0) g/dL 12/23/24 12/24/24 12/24/24 Range/Units 17:51 01:06 05:25 WBC 3.75 L (4.50-10.00) 10*3/uL RBC 2.21 L (4.40-5.60) 10*6/uL Hgb 7.5 L (13.0-17.0) g/dL Hct 21.3 L (39.6-50.0) % MCH 33.8 H (27.0-32.0) pg Plt Count 49 L (140-440) 10*3/uL Immature Gran # 0.07 H (0.00-0.04) 10*3/uL Lymphocytes # (Manual) 0.23 L (1.0-4.8) k/uL Retic Count (0.10-1.80) % Haptoglobin (31.2-198.0) mg/dL Fibrinogen (200-500) mg/dL Sodium (137-145) mmol/L Potassium (3.5-5.1) mmol/L Chloride (98-107) mmol/L Creatinine 0.23 L (0.66-1.25) mg/dL POC Glucose (mg/dL) 121 H (70-110) mg/dL Calcium (8.4-10.2) mg/dL Iron (65-175) UG/DL TIBC (228-460) UG/DL Transferrin (204.0-354.0) mg/dL Ferritin (22.0-322.0) ng/mL Total Bilirubin (0.2-1.3) mg/dL Lactate Dehydrogenase (120-246) U/L Total Protein (6.3-8.2) g/dL Albumin (3.5-5.0) g/dL 12/24/24 12/24/24 12/24/24 Range/Units 05:25 05:48 09:49 WBC (4.50-10.00) 10*3/uL RBC (4.40-5.60) 10*6/uL Hgb (13.0-17.0) g/dL Hct (39.6-50.0) % MCH (27.0-32.0) pg Plt Count (140-440) 10*3/uL Immature Gran # (0.00-0.04) 10*3/uL Lymphocytes # (Manual) (1.0-4.8) k/uL Retic Count 3.11 H (0.10-1.80) % Haptoglobin (31.2-198.0) mg/dL Fibrinogen 717 H (200-500) mg/dL Sodium 126 L (137-145) mmol/L Potassium 3.4 L (3.5-5.1) mmol/L Chloride 97 L (98-107) mmol/L Creatinine 0.32 L (0.66-1.25) mg/dL POC Glucose (mg/dL) (70-110) mg/dL Calcium 7.1 L (8.4-10.2) mg/dL Iron (65-175) UG/DL TIBC (228-460) UG/DL Transferrin (204.0-354.0) mg/dL Ferritin (22.0-322.0) ng/mL Total Bilirubin 1.6 H (0.2-1.3) mg/dL Lactate Dehydrogenase (120-246) U/L Total Protein 3.9 L (6.3-8.2) g/dL Albumin 1.9 L (3.5-5.0) g/dL 12/24/24 Range/Units 11:21 WBC (4.50-10.00) 10*3/uL RBC (4.40-5.60) 10*6/uL Hgb (13.0-17.0) g/dL Hct (39.6-50.0) % MCH (27.0-32.0) pg Plt Count (140-440) 10*3/uL Immature Gran # (0.00-0.04) 10*3/uL Lymphocytes # (Manual) (1.0-4.8) k/uL Retic Count (0.10-1.80) % Haptoglobin (31.2-198.0) mg/dL Fibrinogen (200-500) mg/dL Sodium (137-145) mmol/L Potassium (3.5-5.1) mmol/L Chloride (98-107) mmol/L Creatinine (0.66-1.25) mg/dL POC Glucose (mg/dL) 121 H (70-110) mg/dL Calcium (8.4-10.2) mg/dL Iron (65-175) UG/DL TIBC (228-460) UG/DL Transferrin (204.0-354.0) mg/dL Ferritin (22.0-322.0) ng/mL Total Bilirubin (0.2-1.3) mg/dL Lactate Dehydrogenase (120-246) U/L Total Protein (6.3-8.2) g/dL Albumin (3.5-5.0) g/dL Microbiology - Last 24 Hours (Table) 12/22/24 06:01 Blood Culture - Preliminary Blood 12/21/24 10:50 Blood Culture - Preliminary Blood 12/20/24 17:19 Legionella Culture - Preliminary Sputum 12/20/24 17:19 Gram Stain - Final Sputum Sputum Culture - Final Corynebacterium striatum group Serratia marcescens ssp marces Serratia marcescens
--- NOTE | 2024-12-24 14:14 | P.PN ---
Subjective Progress Note Date: 12/24/24 This is 74-year-old male patient with past medical history of persistent atrial fibrillation on Eliquis, CHF, hyperlipidemia, oropharyngeal cancer with G-tube feedings. Patient was seen yesterday by cardiology for A-fib with RVR, Cardizem drip was discontinued and patient maintained on oral medications. Lasix was placed on hold due to dehydration and hypotension. Patient remains in atrial fibrillation with controlled ventricular rate. Patient is maintained on Lopressor and Eliquis. Progress note 12/23/2024 Yesterday was transferred to ICU because of hemodynamic compromise, low blood pressure and heart rate along with worsening anemia. He was started on amiodarone drip got 2 doses of digoxin 125 mcg which controlled his heart rate. Heart rates were in 140s with SBP in low 100s. Hemoglobin was 6.4, repeat 6.3. No active source of bleeding was noticed however. Macrocytic anemia. 12/24/2024 Continues to be in atrial fibrillation heart rate in 120s, Blood pressure still labile Appears weak and frail Physical examination: LUNGS: Scattered rhonchi. No intercostal retractions. HEART: Irregular rate and rhythm. No murmur. ABDOMEN: Soft No tenderness. EXTREMITIES: No pedal edema. No calf tenderness. NEUROLOGICAL: Patient is awake. Assessment: Acute on chronic anemia, Persistent A-fib with RVR Oropharyngeal cancer with G-tube feedings Aspiration pneumonia Hypovolemic hyponatremia Lactic acidosis, resolved Pancytopenia Plan: Hold anticoagulation. Replace hemoglobin with goal hemoglobin of 7. Continue metoprolol 25 mg twice daily. Continue amiodarone 200 mg twice daily Digoxin 62.5 mcg every day. He got 2 doses of dig 125 mcg 12/22/2024 We are following the patient for A-fib RVR Overall prognosis is very guarded. Recommend goals of care discussion with family. Appreciate hematology recommendations for anemia treatment Poor candidate for long-term anticoagulation Objective - Vital Signs Vital signs: Vital Signs Temp 98.4 F 12/24/24 12:00 Pulse 112 H 12/24/24 14:00 Resp 23 12/24/24 14:00 BP 146/91 12/24/24 14:00 Pulse Ox 98 12/24/24 14:00 FiO2 Intake & Output 12/23/24 12/24/24 12/24/24 18:59 06:59 18:59 Intake Total 963.30 170 230 Output Total 665 445 361 Balance 298.30 -275 -131 Weight 85.4 kg Intake: IV 403.30 170 180 0.9 Normal Saline @ KVO 120 70 80 Amiodarone 450 mg In 83.30 Dextrose 5% in Water 250 ml @ 0.5 MG/MIN 16.667 mls/hr IV .Q15H AJIT Rx#: [id number] Cefepime 2 gm In Sodium 200 100 100 Chloride 0.9% 100 ml @ 25 mls/hr IVPB Q8HR AJIT Rx# :[id number] Intake, IV Titration 250 Amount Vancomycin 1,250 mg In 250 Sodium Chloride 0.9% 250 ml @ 125 mls/hr IVPB Q12H AJIT Rx#:[id number] Tube Feeding 40 Blood Product 310 Rc Irr As1 Unit 310 [id number] Other 10 Output: Urine 665 445 361 Other: Voiding Method Indwelling Catheter Indwelling Catheter Indwelling Catheter # Bowel Movements 1 - Labs CBC & Chem 7: 12/24/24 05:25 12/24/24 05:25 Labs: Abnormal Lab Results - Last 24 Hours (Table) 12/23/24 12/23/24 12/23/24 Range/Units 04:58 04:58 04:58 WBC (4.50-10.00) 10*3/uL RBC (4.40-5.60) 10*6/uL Hgb (13.0-17.0) g/dL Hct (39.6-50.0) % MCH (27.0-32.0) pg Plt Count (140-440) 10*3/uL Immature Gran # (0.00-0.04) 10*3/uL Lymphocytes # (Manual) (1.0-4.8) k/uL Retic Count (0.10-1.80) % Haptoglobin 290.0 H (31.2-198.0) mg/dL Fibrinogen (200-500) mg/dL Sodium (137-145) mmol/L Potassium (3.5-5.1) mmol/L Chloride (98-107) mmol/L Creatinine (0.66-1.25) mg/dL POC Glucose (mg/dL) (70-110) mg/dL Calcium (8.4-10.2) mg/dL Iron 26 L (65-175) UG/DL TIBC 129 L (228-460) UG/DL Transferrin 92.1 L (204.0-354.0) mg/dL Ferritin 708.0 H (22.0-322.0) ng/mL Total Bilirubin (0.2-1.3) mg/dL Lactate Dehydrogenase 289 H (120-246) U/L Total Protein (6.3-8.2) g/dL Albumin (3.5-5.0) g/dL 12/23/24 12/24/24 12/24/24 Range/Units 17:51 01:06 05:25 WBC 3.75 L (4.50-10.00) 10*3/uL RBC 2.21 L (4.40-5.60) 10*6/uL Hgb 7.5 L (13.0-17.0) g/dL Hct 21.3 L (39.6-50.0) % MCH 33.8 H (27.0-32.0) pg Plt Count 49 L (140-440) 10*3/uL Immature Gran # 0.07 H (0.00-0.04) 10*3/uL Lymphocytes # (Manual) 0.23 L (1.0-4.8) k/uL Retic Count (0.10-1.80) % Haptoglobin (31.2-198.0) mg/dL Fibrinogen (200-500) mg/dL Sodium (137-145) mmol/L Potassium (3.5-5.1) mmol/L Chloride (98-107) mmol/L Creatinine 0.23 L (0.66-1.25) mg/dL POC Glucose (mg/dL) 121 H (70-110) mg/dL Calcium (8.4-10.2) mg/dL Iron (65-175) UG/DL TIBC (228-460) UG/DL Transferrin (204.0-354.0) mg/dL Ferritin (22.0-322.0) ng/mL Total Bilirubin (0.2-1.3) mg/dL Lactate Dehydrogenase (120-246) U/L Total Protein (6.3-8.2) g/dL Albumin (3.5-5.0) g/dL 12/24/24 12/24/24 12/24/24 Range/Units 05:25 05:48 09:49 WBC (4.50-10.00) 10*3/uL RBC (4.40-5.60) 10*6/uL Hgb (13.0-17.0) g/dL Hct (39.6-50.0) % MCH (27.0-32.0) pg Plt Count (140-440) 10*3/uL Immature Gran # (0.00-0.04) 10*3/uL Lymphocytes # (Manual) (1.0-4.8) k/uL Retic Count 3.11 H (0.10-1.80) % Haptoglobin (31.2-198.0) mg/dL Fibrinogen 717 H (200-500) mg/dL Sodium 126 L (137-145) mmol/L Potassium 3.4 L (3.5-5.1) mmol/L Chloride 97 L (98-107) mmol/L Creatinine 0.32 L (0.66-1.25) mg/dL POC Glucose (mg/dL) (70-110) mg/dL Calcium 7.1 L (8.4-10.2) mg/dL Iron (65-175) UG/DL TIBC (228-460) UG/DL Transferrin (204.0-354.0) mg/dL Ferritin (22.0-322.0) ng/mL Total Bilirubin 1.6 H (0.2-1.3) mg/dL Lactate Dehydrogenase (120-246) U/L Total Protein 3.9 L (6.3-8.2) g/dL Albumin 1.9 L (3.5-5.0) g/dL 12/24/24 Range/Units 11:21 WBC (4.50-10.00) 10*3/uL RBC (4.40-5.60) 10*6/uL Hgb (13.0-17.0) g/dL Hct (39.6-50.0) % MCH (27.0-32.0) pg Plt Count (140-440) 10*3/uL Immature Gran # (0.00-0.04) 10*3/uL Lymphocytes # (Manual) (1.0-4.8) k/uL Retic Count (0.10-1.80) % Haptoglobin (31.2-198.0) mg/dL Fibrinogen (200-500) mg/dL Sodium (137-145) mmol/L Potassium (3.5-5.1) mmol/L Chloride (98-107) mmol/L Creatinine (0.66-1.25) mg/dL POC Glucose (mg/dL) 121 H (70-110) mg/dL Calcium (8.4-10.2) mg/dL Iron (65-175) UG/DL TIBC (228-460) UG/DL Transferrin (204.0-354.0) mg/dL Ferritin (22.0-322.0) ng/mL Total Bilirubin (0.2-1.3) mg/dL Lactate Dehydrogenase (120-246) U/L Total Protein (6.3-8.2) g/dL Albumin (3.5-5.0) g/dL Microbiology - Last 24 Hours (Table) 12/22/24 06:01 Blood Culture - Preliminary Blood 12/21/24 10:50 Blood Culture - Preliminary Blood 12/20/24 17:19 Legionella Culture - Preliminary Sputum 12/20/24 17:19 Gram Stain - Final Sputum Sputum Culture - Final Corynebacterium striatum group Serratia marcescens ssp marces Serratia marcescens
--- NOTE | 2024-12-24 14:43 | P.PN ---
Subjective Progress Note Date: 12/24/24 Principal diagnosis: Reason for follow-up is fever/pneumonia Patient is a 74-year-old male with a past medical history significant for Atrial Fibrillation, Cancer, Diabetes Mellitus, Hyperlipidemia, Myocardial Infarction ([place]) he did have cancer of the cervical spine C1-C2 for the patient has received chemo completed in June 2024 and has received radiation therapy admitted to hospital with weakness noticed to have a fever prompting this consultation. On today's evaluation that is 12/24/2024, Patient is afebrile patient is currently on 2 L nasal oxygen and breathing comfortably, the patient denies any chest pain and cough has decreased intensity, the patient denies any nausea vomiting did not have any abdominal pain and no diarrhea. Patient white count is 3.75 creatinine 0.32 Vanco trough 9.2 Objective - Vital Signs Vital signs: Vital Signs Temp 98.4 F 12/24/24 12:00 Pulse 112 H 12/24/24 14:00 Resp 23 12/24/24 14:00 BP 146/91 12/24/24 14:00 Pulse Ox 98 12/24/24 14:00 FiO2 Intake & Output 12/23/24 12/24/24 12/24/24 18:59 06:59 18:59 Intake Total 963.30 170 230 Output Total 665 445 361 Balance 298.30 -275 -131 Weight 85.4 kg Intake: IV 403.30 170 180 0.9 Normal Saline @ KVO 120 70 80 Amiodarone 450 mg In 83.30 Dextrose 5% in Water 250 ml @ 0.5 MG/MIN 16.667 mls/hr IV .Q15H AJIT Rx#: [id number] Cefepime 2 gm In Sodium 200 100 100 Chloride 0.9% 100 ml @ 25 mls/hr IVPB Q8HR AJIT Rx# :[id number] Intake, IV Titration 250 Amount Vancomycin 1,250 mg In 250 Sodium Chloride 0.9% 250 ml @ 125 mls/hr IVPB Q12H AJIT Rx#:[id number] Tube Feeding 40 Blood Product 310 Rc Irr As1 Unit 310 [id number] Other 10 Output: Urine 665 445 361 Other: Voiding Method Indwelling Catheter Indwelling Catheter Indwelling Catheter # Bowel Movements 1 - Exam GENERAL DESCRIPTION: An elderly male lying in bed in no distress RESPIRATORY SYSTEM: Unlabored breathing , decreased breath sounds at bases HEART: S1 S2 regular rate and rhythm , ABDOMEN: Soft , no tenderness EXTREMITIES: No edema feet - Labs CBC & Chem 7: 12/24/24 05:25 12/24/24 05:25 Labs: Abnormal Lab Results - Last 24 Hours (Table) 12/23/24 12/23/24 12/23/24 Range/Units 04:58 04:58 04:58 WBC (4.50-10.00) 10*3/uL RBC (4.40-5.60) 10*6/uL Hgb (13.0-17.0) g/dL Hct (39.6-50.0) % MCH (27.0-32.0) pg Plt Count (140-440) 10*3/uL Immature Gran # (0.00-0.04) 10*3/uL Lymphocytes # (Manual) (1.0-4.8) k/uL Retic Count (0.10-1.80) % Haptoglobin 290.0 H (31.2-198.0) mg/dL Fibrinogen (200-500) mg/dL Sodium (137-145) mmol/L Potassium (3.5-5.1) mmol/L Chloride (98-107) mmol/L Creatinine (0.66-1.25) mg/dL POC Glucose (mg/dL) (70-110) mg/dL Calcium (8.4-10.2) mg/dL Iron 26 L (65-175) UG/DL TIBC 129 L (228-460) UG/DL Transferrin 92.1 L (204.0-354.0) mg/dL Ferritin 708.0 H (22.0-322.0) ng/mL Total Bilirubin (0.2-1.3) mg/dL Lactate Dehydrogenase 289 H (120-246) U/L Total Protein (6.3-8.2) g/dL Albumin (3.5-5.0) g/dL 12/23/24 12/24/24 12/24/24 Range/Units 17:51 01:06 05:25 WBC 3.75 L (4.50-10.00) 10*3/uL RBC 2.21 L (4.40-5.60) 10*6/uL Hgb 7.5 L (13.0-17.0) g/dL Hct 21.3 L (39.6-50.0) % MCH 33.8 H (27.0-32.0) pg Plt Count 49 L (140-440) 10*3/uL Immature Gran # 0.07 H (0.00-0.04) 10*3/uL Lymphocytes # (Manual) 0.23 L (1.0-4.8) k/uL Retic Count (0.10-1.80) % Haptoglobin (31.2-198.0) mg/dL Fibrinogen (200-500) mg/dL Sodium (137-145) mmol/L Potassium (3.5-5.1) mmol/L Chloride (98-107) mmol/L Creatinine 0.23 L (0.66-1.25) mg/dL POC Glucose (mg/dL) 121 H (70-110) mg/dL Calcium (8.4-10.2) mg/dL Iron (65-175) UG/DL TIBC (228-460) UG/DL Transferrin (204.0-354.0) mg/dL Ferritin (22.0-322.0) ng/mL Total Bilirubin (0.2-1.3) mg/dL Lactate Dehydrogenase (120-246) U/L Total Protein (6.3-8.2) g/dL Albumin (3.5-5.0) g/dL 12/24/24 12/24/24 12/24/24 Range/Units 05:25 05:48 09:49 WBC (4.50-10.00) 10*3/uL RBC (4.40-5.60) 10*6/uL Hgb (13.0-17.0) g/dL Hct (39.6-50.0) % MCH (27.0-32.0) pg Plt Count (140-440) 10*3/uL Immature Gran # (0.00-0.04) 10*3/uL Lymphocytes # (Manual) (1.0-4.8) k/uL Retic Count 3.11 H (0.10-1.80) % Haptoglobin (31.2-198.0) mg/dL Fibrinogen 717 H (200-500) mg/dL Sodium 126 L (137-145) mmol/L Potassium 3.4 L (3.5-5.1) mmol/L Chloride 97 L (98-107) mmol/L Creatinine 0.32 L (0.66-1.25) mg/dL POC Glucose (mg/dL) (70-110) mg/dL Calcium 7.1 L (8.4-10.2) mg/dL Iron (65-175) UG/DL TIBC (228-460) UG/DL Transferrin (204.0-354.0) mg/dL Ferritin (22.0-322.0) ng/mL Total Bilirubin 1.6 H (0.2-1.3) mg/dL Lactate Dehydrogenase (120-246) U/L Total Protein 3.9 L (6.3-8.2) g/dL Albumin 1.9 L (3.5-5.0) g/dL 12/24/24 Range/Units 11:21 WBC (4.50-10.00) 10*3/uL RBC (4.40-5.60) 10*6/uL Hgb (13.0-17.0) g/dL Hct (39.6-50.0) % MCH (27.0-32.0) pg Plt Count (140-440) 10*3/uL Immature Gran # (0.00-0.04) 10*3/uL Lymphocytes # (Manual) (1.0-4.8) k/uL Retic Count (0.10-1.80) % Haptoglobin (31.2-198.0) mg/dL Fibrinogen (200-500) mg/dL Sodium (137-145) mmol/L Potassium (3.5-5.1) mmol/L Chloride (98-107) mmol/L Creatinine (0.66-1.25) mg/dL POC Glucose (mg/dL) 121 H (70-110) mg/dL Calcium (8.4-10.2) mg/dL Iron (65-175) UG/DL TIBC (228-460) UG/DL Transferrin (204.0-354.0) mg/dL Ferritin (22.0-322.0) ng/mL Total Bilirubin (0.2-1.3) mg/dL Lactate Dehydrogenase (120-246) U/L Total Protein (6.3-8.2) g/dL Albumin (3.5-5.0) g/dL Microbiology - Last 24 Hours (Table) 12/22/24 06:01 Blood Culture - Preliminary Blood 12/21/24 10:50 Blood Culture - Preliminary Blood 12/20/24 17:19 Legionella Culture - Preliminary Sputum 12/20/24 17:19 Gram Stain - Final Sputum Sputum Culture - Final Corynebacterium striatum group Serratia marcescens ssp marces Serratia marcescens Assessment and Plan (1) Pneumonia Current Visit: Yes Status: Acute Priority: High Code(s): J18.9 - PNEUMONIA, UNSPECIFIED ORGANISM SNOMED Code(s): 322900338 (2) Sepsis Current Visit: Yes Status: Acute Priority: High Code(s): A41.9 - SEPSIS, UNSPECIFIED ORGANISM SNOMED Code(s): 63121053 Plan: 1patient with a fever in this patient who did have a history of C1-C2 cervical spine cancer status post chemoradiation therapy did have difficulty swallowing requiring PEG tube placement admitted to the hospital 4 days ago predominantly with nausea vomiting and some abdominal discomfort and there is concern for possible aspiration pneumonitis with the lack etiology however abdominal source not entirely excluded 2-sputum is growing corynebacterium stratum as well as Serratia that is sensitive to cefepime 3-patient did have CT of abdominal pelvis with contrast did not show any intra- abdominal pathology there was concern for bibasilar opacities/pneumonia 4-patient is afebrile some improvement respiratory status will continue cefepime and vancomycin while waiting for sensitivity on the corynebacterium stratum Dictation was produced using [employer] dictation software. please excuse any grammatical, word or spelling errors.
[2024-12-24 18:11] LABS: Glucose,Whole Blood 146 mg/dL (70-110)
[2024-12-24 23:05] LABS: Glucose,Whole Blood 154 mg/dL (70-110)
[2024-12-25 05:47] LABS: Glucose,Whole Blood 147 mg/dL (70-110)
[2024-12-25 06:22] LABS: Basophils # (A) 0.01 10*3/uL (0.00-0.10); Basophils % (A) 0.5 %; Eosinophils # (A) 0.00 10*3/uL (0.04-0.35); Eosinophils % (A) 0.0 %; HCT 20.2 % (39.6-50.0); HGB 7.1 g/dL (13.0-17.0); Lymphocytes # (A) 0.61 10*3/uL (0.90-5.00); Lymphocytes % (A) 27.6 %; MCH 34.0 pg (27.0-32.0); MCHC 35.1 g/dL (32.0-37.0); MCV 96.7 fL (80.0-97.0); Monocytes # (A) 0.08 10*3/uL (0.20-1.00); Monocytes % (A) 3.6 %; Neutrophils # (A) 1.50 10*3/uL (1.80-7.70); Neutrophils % (A) 67.8 %; RBC 2.09 10*6/uL (4.40-5.60); RDW 18.8 % (11.5-14.5); WBC 2.21 10*3/uL (4.50-10.00)
[2024-12-25 06:34] LABS: African American GFR (CKD) >90 (>60 ml/min/1.73 sqM); Anion Gap 6 mmol/L; Blood Urea Nitrogen 9 mg/dL (9-20); Calcium 7.2 mg/dL (8.4-10.2); Carbon Dioxide 27 mmol/L (22-30); Chloride 94 mmol/L (98-107); Glucose 128 mg/dL (74-99); Magnesium 1.6 mg/dL (1.6-2.3); Non-African American GFR(CKD) >90 (>60 ml/min/1.73 sqM); Potassium 3.5 mmol/L (3.5-5.1); Sodium 127 mmol/L (137-145)
[2024-12-25] MEDS ORDERED: Magnesium Replacement Protocol 1 EACH MISC MISCELLANE PRN (06:47)
[2024-12-25] MEDS ORDERED: Potassium Replacement Protocol 1 EACH MISC MISCELLANE PRN (06:47)
[2024-12-25] MEDS: MAGNESIUM SULFATE-D5W PMX 1 GM in DEXTROSE/WATER 1 100ML.BAG IVPB SCH (07:00)
[2024-12-25] MEDS: POTASSIUM BICARBONATE/CIT AC 20 MEQ TABLET.EFF NG-TUBE SCH (07:00)
--- NOTE | 2024-12-25 08:13 | P.PN ---
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 He had intractable nausea and vomiting. On his chest CT there was increase in the size and number of the pulmonary nodules with enlarged mediastinal lymph nodes. He continues to be in atrial fibrillation w ith episode of rapid ventricular response. His blood pressure has been stable and his urine output has been stable. He has a PEG tube as well is an NG tube. He is getting tube feeding. He had no evidence of hypertension. His sputum culture was positive for Serratia marcescens. Medications: Amiodarone 200 mg twice a day, digoxin 62.5 mcg daily, metoprolol tartrate 25 mg 3 times a day, PHYSICAL EXAMINATION: Blood pressure 125/70 heart rate 116, NG tube in place LUNGS: Clear to auscultation HEART: Irregular rate and rhythm, S1, S2. No S3. Systolic ejection murmur ABDOMEN: Soft, nontender, no organomegaly PEG tube in place EXTREMETIES: +1 edema LAB: Hemoglobin 7.1, WBC 2.2, platelet 46,000, potassium 3.5, BUN 9, creatinine 0.3, sodium 127 IMPRESSION: 1. Probable aspiration pneumonia 2. 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 Atrial fibrillation with rapid ventricular response 4. Pancytopenia 5. Hyponatremia 6. Persistent nausea and vomiting PLAN: 1. Increase beta-gagan 2. Stop digoxin because of the increased risk of toxicity with the amiodarone 3. No anticoagulation because of the pancytopenia 4. Prognosis is poor Objective - Vital Signs Vital signs: Vital Signs Temp 98.4 F 12/25/24 07:00 Pulse 116 H 12/25/24 07:00 Resp 23 12/25/24 07:00 BP 125/72 12/25/24 07:00 Pulse Ox 99 12/25/24 07:00 FiO2 Intake & Output 12/24/24 12/25/24 12/25/24 18:59 06:59 18:59 Intake Total 480 440 150 Output Total 533 745 45 Balance -53 -305 105 Weight 85.6 kg Intake: IV 330 210 10 0.9 Normal Saline @ KVO 130 110 10 Cefepime 2 gm In Sodium 200 100 Chloride 0.9% 100 ml @ 25 mls/hr IVPB Q8HR AJIT Rx# :[id number] Intake, IV Titration 100 Amount Magnesium Sulfate-D5w Pmx 100 1 gm In Dextrose/Water 1 100ml.bag @ 100 mls/hr IVPB Q1H AJIT Rx#: [id number] Tube Feeding 90 110 10 Other 60 120 30 Output: Urine 533 745 45 Other: Voiding Method Indwelling Catheter Indwelling Catheter # Bowel Movements 1 1 - Labs CBC & Chem 7: 12/25/24 05:41 12/25/24 05:41 Labs: Abnormal Lab Results - Last 24 Hours (Table) 12/23/24 12/23/24 12/23/24 Range/Units 04:58 04:58 04:58 WBC (4.50-10.00) 10*3/uL RBC (4.40-5.60) 10*6/uL Hgb (13.0-17.0) g/dL Hct (39.6-50.0) % MCH (27.0-32.0) pg Plt Count (140-440) 10*3/uL Retic Count (0.10-1.80) % Haptoglobin 290.0 H (31.2-198.0) mg/dL Fibrinogen (200-500) mg/dL Sodium (137-145) mmol/L Potassium (3.5-5.1) mmol/L Chloride (98-107) mmol/L Creatinine (0.66-1.25) mg/dL Glucose (74-99) mg/dL POC Glucose (mg/dL) (70-110) mg/dL Calcium (8.4-10.2) mg/dL Iron 26 L (65-175) UG/DL TIBC 129 L (228-460) UG/DL Transferrin 92.1 L (204.0-354.0) mg/dL Ferritin 708.0 H (22.0-322.0) ng/mL Lactate Dehydrogenase 289 H (120-246) U/L 12/24/24 12/24/24 12/24/24 Range/Units 05:48 09:49 11:21 WBC (4.50-10.00) 10*3/uL RBC (4.40-5.60) 10*6/uL Hgb (13.0-17.0) g/dL Hct (39.6-50.0) % MCH (27.0-32.0) pg Plt Count (140-440) 10*3/uL Retic Count 3.11 H (0.10-1.80) % Haptoglobin (31.2-198.0) mg/dL Fibrinogen 717 H (200-500) mg/dL Sodium (137-145) mmol/L Potassium (3.5-5.1) mmol/L Chloride (98-107) mmol/L Creatinine (0.66-1.25) mg/dL Glucose (74-99) mg/dL POC Glucose (mg/dL) 121 H (70-110) mg/dL Calcium (8.4-10.2) mg/dL Iron (65-175) UG/DL TIBC (228-460) UG/DL Transferrin (204.0-354.0) mg/dL Ferritin (22.0-322.0) ng/mL Lactate Dehydrogenase (120-246) U/L 12/24/24 12/24/24 12/24/24 Range/Units 18:09 18:35 23:04 WBC (4.50-10.00) 10*3/uL RBC (4.40-5.60) 10*6/uL Hgb (13.0-17.0) g/dL Hct (39.6-50.0) % MCH (27.0-32.0) pg Plt Count (140-440) 10*3/uL Retic Count (0.10-1.80) % Haptoglobin (31.2-198.0) mg/dL Fibrinogen (200-500) mg/dL Sodium (137-145) mmol/L Potassium 5.2 H (3.5-5.1) mmol/L Chloride (98-107) mmol/L Creatinine (0.66-1.25) mg/dL Glucose (74-99) mg/dL POC Glucose (mg/dL) 146 H 154 H (70-110) mg/dL Calcium (8.4-10.2) mg/dL Iron (65-175) UG/DL TIBC (228-460) UG/DL Transferrin (204.0-354.0) mg/dL Ferritin (22.0-322.0) ng/mL Lactate Dehydrogenase (120-246) U/L 12/25/24 12/25/24 12/25/24 Range/Units 05:41 05:41 05:46 WBC 2.21 L (4.50-10.00) 10*3/uL RBC 2.09 L (4.40-5.60) 10*6/uL Hgb 7.1 L (13.0-17.0) g/dL Hct 20.2 L (39.6-50.0) % MCH 34.0 H (27.0-32.0) pg Plt Count 46 L (140-440) 10*3/uL Retic Count (0.10-1.80) % Haptoglobin (31.2-198.0) mg/dL Fibrinogen (200-500) mg/dL Sodium 127 L (137-145) mmol/L Potassium (3.5-5.1) mmol/L Chloride 94 L (98-107) mmol/L Creatinine 0.30 L (0.66-1.25) mg/dL Glucose 128 H (74-99) mg/dL POC Glucose (mg/dL) 147 H (70-110) mg/dL Calcium 7.2 L (8.4-10.2) mg/dL Iron (65-175) UG/DL TIBC (228-460) UG/DL Transferrin (204.0-354.0) mg/dL Ferritin (22.0-322.0) ng/mL Lactate Dehydrogenase (120-246) U/L Microbiology - Last 24 Hours (Table) 12/21/24 10:50 Blood Culture - Preliminary Blood 12/22/24 06:01 Blood Culture - Preliminary Blood
--- NOTE | 2024-12-25 08:34 | XR ---
EXAMINATION TYPE: XR chest 1V portable DATE OF EXAM: 12/25/2024 5:35 AM COMPARISON: 12/24/2024 CLINICAL INDICATION: Male, 74 years old with history of follow up, possible aspiration, , FINDINGS: Heart borderline enlarged. NG tube is in place. Patient rotated towards the right ultrasound and norm al cardiac and mediastinal contours. Interstitial densities persist. Patchy left basilar opacity slig htly worsened. More nodular opacity at the left suprahilar region. IMPRESSION: 1. Similar borderline cardiomegaly. 2. Ongoing diffuse interstitial densities. Considerations include pulmonary vascular congestion, atyp ical pneumonias, aspiration, or interstitial pneumonitis. 3. Worsening airspace disease at the left base. 4. Nodular appearance to density at the left suprahilar region. Attention on follow-up to exclude und erlying neoplasm. [facility], , 12/25/2024 8:32 AM
[2024-12-25] MEDS: METOPROLOL TARTRATE 50 MG TAB PEG/G-TUBE SCH (08:51)
--- NOTE | 2024-12-25 09:21 | P.PN ---
Subjective Patient is seen in follow-up for hyponatremia. Sodium level 127 today. Currently receiving a breathing treatment. Poor historian. Vital signs are stable. General: Resting in bed. HEENT: Head exam is unremarkable. Wearing oxygen mask. LUNGS: Scattered rhonchi. HEART: Tachycardic. ABDOMEN: Nontender. EXTREMITITES: No edema. Objective - Vital Signs Vital signs: Vital Signs Temp 98.4 F 12/25/24 07:00 Pulse 130 H 12/25/24 08:52 Resp 23 12/25/24 07:00 BP 125/72 12/25/24 07:00 Pulse Ox 98 12/25/24 08:37 FiO2 Intake & Output 12/24/24 12/25/24 12/25/24 18:59 06:59 18:59 Intake Total 480 440 150 Output Total 533 745 45 Balance -53 -305 105 Weight 85.6 kg Intake: IV 330 210 10 0.9 Normal Saline @ KVO 130 110 10 Cefepime 2 gm In Sodium 200 100 Chloride 0.9% 100 ml @ 25 mls/hr IVPB Q8HR AJIT Rx# :[id number] Intake, IV Titration 100 Amount Magnesium Sulfate-D5w Pmx 100 1 gm In Dextrose/Water 1 100ml.bag @ 100 mls/hr IVPB Q1H AJIT Rx#: [id number] Tube Feeding 90 110 10 Other 60 120 30 Output: Urine 533 745 45 Other: Voiding Method Indwelling Catheter Indwelling Catheter # Bowel Movements 1 1 - Labs CBC & Chem 7: 12/25/24 05:41 12/25/24 05:41 Labs: Abnormal Lab Results - Last 24 Hours (Table) 12/23/24 12/23/24 12/23/24 Range/Units 04:58 04:58 04:58 WBC (4.50-10.00) 10*3/uL RBC (4.40-5.60) 10*6/uL Hgb (13.0-17.0) g/dL Hct (39.6-50.0) % MCH (27.0-32.0) pg Plt Count (140-440) 10*3/uL Retic Count (0.10-1.80) % Haptoglobin 290.0 H (31.2-198.0) mg/dL Fibrinogen (200-500) mg/dL Sodium (137-145) mmol/L Potassium (3.5-5.1) mmol/L Chloride (98-107) mmol/L Creatinine (0.66-1.25) mg/dL Glucose (74-99) mg/dL POC Glucose (mg/dL) (70-110) mg/dL Calcium (8.4-10.2) mg/dL Iron 26 L (65-175) UG/DL TIBC 129 L (228-460) UG/DL Transferrin 92.1 L (204.0-354.0) mg/dL Ferritin 708.0 H (22.0-322.0) ng/mL Lactate Dehydrogenase 289 H (120-246) U/L 12/24/24 12/24/24 12/24/24 Range/Units 05:48 09:49 11:21 WBC (4.50-10.00) 10*3/uL RBC (4.40-5.60) 10*6/uL Hgb (13.0-17.0) g/dL Hct (39.6-50.0) % MCH (27.0-32.0) pg Plt Count (140-440) 10*3/uL Retic Count 3.11 H (0.10-1.80) % Haptoglobin (31.2-198.0) mg/dL Fibrinogen 717 H (200-500) mg/dL Sodium (137-145) mmol/L Potassium (3.5-5.1) mmol/L Chloride (98-107) mmol/L Creatinine (0.66-1.25) mg/dL Glucose (74-99) mg/dL POC Glucose (mg/dL) 121 H (70-110) mg/dL Calcium (8.4-10.2) mg/dL Iron (65-175) UG/DL TIBC (228-460) UG/DL Transferrin (204.0-354.0) mg/dL Ferritin (22.0-322.0) ng/mL Lactate Dehydrogenase (120-246) U/L 12/24/24 12/24/24 12/24/24 Range/Units 18:09 18:35 23:04 WBC (4.50-10.00) 10*3/uL RBC (4.40-5.60) 10*6/uL Hgb (13.0-17.0) g/dL Hct (39.6-50.0) % MCH (27.0-32.0) pg Plt Count (140-440) 10*3/uL Retic Count (0.10-1.80) % Haptoglobin (31.2-198.0) mg/dL Fibrinogen (200-500) mg/dL Sodium (137-145) mmol/L Potassium 5.2 H (3.5-5.1) mmol/L Chloride (98-107) mmol/L Creatinine (0.66-1.25) mg/dL Glucose (74-99) mg/dL POC Glucose (mg/dL) 146 H 154 H (70-110) mg/dL Calcium (8.4-10.2) mg/dL Iron (65-175) UG/DL TIBC (228-460) UG/DL Transferrin (204.0-354.0) mg/dL Ferritin (22.0-322.0) ng/mL Lactate Dehydrogenase (120-246) U/L 12/25/24 12/25/24 12/25/24 Range/Units 05:41 05:41 05:46 WBC 2.21 L (4.50-10.00) 10*3/uL RBC 2.09 L (4.40-5.60) 10*6/uL Hgb 7.1 L (13.0-17.0) g/dL Hct 20.2 L (39.6-50.0) % MCH 34.0 H (27.0-32.0) pg Plt Count 46 L (140-440) 10*3/uL Retic Count (0.10-1.80) % Haptoglobin (31.2-198.0) mg/dL Fibrinogen (200-500) mg/dL Sodium 127 L (137-145) mmol/L Potassium (3.5-5.1) mmol/L Chloride 94 L (98-107) mmol/L Creatinine 0.30 L (0.66-1.25) mg/dL Glucose 128 H (74-99) mg/dL POC Glucose (mg/dL) 147 H (70-110) mg/dL Calcium 7.2 L (8.4-10.2) mg/dL Iron (65-175) UG/DL TIBC (228-460) UG/DL Transferrin (204.0-354.0) mg/dL Ferritin (22.0-322.0) ng/mL Lactate Dehydrogenase (120-246) U/L Microbiology - Last 24 Hours (Table) 12/21/24 10:50 Blood Culture - Preliminary Blood 12/22/24 06:01 Blood Culture - Preliminary Blood Assessment and Plan Plan: Assessment: 1. Hyponatremia, euvolemic. Urine sodium 82 and urine osmolality 621. TSH normal. Cortisol level noted to be low at 2.6 dated December 21, 2024. 2. Pneumonia on antibiotics. 3. A-fib with RVR, on oral meds. Cardiology following. 4. History of CVA. 5. Hypomagnesemia from poor intake, being replaced. Plan: Maintain salt tabs. Maintain tube feeds. Limit free water with tube feeds. Check cosyntropin stimulation test. Repeat labs in the morning. Status post [facility] given December 24, 2024.
[2024-12-25 09:34] LABS: Platelet Count 46 10*3/uL (140-440)
[2024-12-25] MEDS: COSYNTROPIN 0.25 MG VIAL IVP ONE (09:47)
[2024-12-25] MEDS: LACTATED RINGERS 1,000 ML IV SCH (10:23)
[2024-12-25 11:29] LABS: Glucose,Whole Blood 178 mg/dL (70-110)
--- NOTE | 2024-12-25 12:51 | P.PN ---
Subjective Progress Note Date: 12/25/24 Hospital course 74 year old M with PMH A-Fib, head and neck CA with PEG, CAD, systolic CHF, DM, HLD presents to the ED for lethargy, fever, wet cough and episodes of choking. In the ED he underwent extensive evaluation. BP 88/60, HR 76, T 97.2F, RR 18, 94% on RA. Labs significant for WBC 3.31, RBC 2.82, Hg 10.1, Hct 28.7, MCV 101.8, Plt 111, Na 128, Cl 92, BUN 29, Cr 0.46, glu 183, Lactic acid 2.3-1.7, T. Bili 1.9, alb 3. Amylase 41, Lipiase 43. UA neg LE or nitrite. COVID, RSV, Flu neg. EKG A-Fib with RVR rate 141. CXR showed bilateral infiltrates. Patient was started on Cardizem drip + Rocephin/Azithromycin and admitted for further workup and management. Subjective Patient seen in the ICU. was at bedside. Patient appears more lethargic and somnolent today. Per nurse they had to do deep suctioning this morning. I had a lengthy discussion with the patient's about goals of care. agreed to DNR/DNI. Physical exam General examination - Alert and Oriented 3 in NAD, ill-appearing Heart - + S1S2 no murmurs Lungs -diffuse rhonchi Abdomen soft NT ND +ve BS, + PEG tube Extremities - No edema [employer] - Moving all 4 extremities spontaneously Psych -slow to answer questions, lethargic Assessment and plan Sepsis and acute hypoxic respiratory failure secondary to recurrent aspiration PNA: Sputum culture growing Serratia and Corynebacterium Cefepime and vancomycin as per infectious disease recommendations Patient is still having persistent fevers due to recurrent aspiration. Pulmonology following Patient restarted on tube feeds and will advance gradually. AFib with RVR: Discontinue Eliquis as platelets are less than 50 This morning patient was back in A-fib with RVR I reviewed note from cardiology increase beta-gagan to 50 mg p.o. twice daily Patient started on amiodarone 200 mg p.o. twice daily Cardiology discontinued digoxin When I saw the patient his heart rate was controlled. Pancytopenia suspect due to malignancy: signs of active bleeding. Transfuse if Hg < 7 or Plt < 10. Heme-Onc on board. This morning hemoglobin is 7.1. Platelets are 46.. DM with hyperglycemia: Tube feeds were discontinued due to aspiration. Tube feeds have now been restarted and will advance gradually to goal hyponatremia likely due to SIADH: Nephrology on board Continue with sodium chloride tabs 1 g twice daily Status post Samsca on 12/24/2024 This morning sodium is 127. Stable CAD: Lipitor 20 mg PEG QHS. Metoprolol and Eliquis Systolic CHF: Not in acute exacerbation. Metoprolol as above. Head and neck CA with Pancytopenia: Will need to have ongoing goals of care discussion with the Resolved: Hypoglycemia, Lactic acidosis CODE STATUS: DNR/DNI DVT Prophylaxis: Holding anticoagulation due to thrombocytopenia GI Prophylaxis: Protonix IV Designated medical POA if patient is not able to make medical decisions for themselves: . I had a lengthy discussion with the about goals of care. is already aware that patient was on palliative treatment for his head and neck cancer. She understands that there is no cure for this. I discussed with the that patient has recurrent aspirations and if he was to recur for this infection he would likely have another aspiration episode. understands this and she has seen this cyclic pattern. agreed to hospice. She would like to meet the hospice nurse and possibly arrange for home with hospice. Objective - Vital Signs Vital signs: Vital Signs Temp 98.9 F 12/25/24 12:00 Pulse 112 H 12/25/24 12:12 Resp 28 H 12/25/24 12:00 BP 129/73 12/25/24 12:00 Pulse Ox 98 12/25/24 12:00 FiO2 2 12/25/24 12:00 Intake & Output 12/24/24 12/25/24 12/25/24 18:59 06:59 18:59 Intake Total 480 440 545 Output Total 533 745 328 Balance -53 -305 217 Weight 85.6 kg Intake: IV 330 210 325 0.9 Normal Saline @ KVO 130 110 50 Cefepime 2 gm In Sodium 200 100 100 Chloride 0.9% 100 ml @ 25 mls/hr IVPB Q8HR AJIT Rx# :[id number] Lactated Ringers 1,000 ml 75 @ 75 mls/hr IV .[id number] AJIT Rx#:[id number] Magnesium Sulfate-D5w Pmx 100 1 gm In Dextrose/Water 1 100ml.bag @ 100 mls/hr IVPB Q1H AJIT Rx#: [id number] Intake, IV Titration 100 Amount Magnesium Sulfate-D5w Pmx 100 1 gm In Dextrose/Water 1 100ml.bag @ 100 mls/hr IVPB Q1H AJIT Rx#: [id number] Tube Feeding 90 110 60 Other 60 120 60 Output: Urine 533 745 328 Other: Voiding Method Indwelling Catheter Indwelling Catheter # Bowel Movements 1 1 - Labs CBC & Chem 7: 12/25/24 05:41 12/25/24 11:24 Labs: Abnormal Lab Results - Last 24 Hours (Table) 12/23/24 12/23/24 12/24/24 Range/Units 04:58 04:58 05:48 WBC (4.50-10.00) 10*3/uL RBC (4.40-5.60) 10*6/uL Hgb (13.0-17.0) g/dL Hct (39.6-50.0) % MCH (27.0-32.0) pg Plt Count (140-440) 10*3/uL Neutrophils # (1.80-7.70) 10*3/uL Lymphocytes # (0.90-5.00) 10*3/uL Monocytes # (0.20-1.00) 10*3/uL Eosinophils # (0.04-0.35) 10*3/uL Retic Count 3.11 H (0.10-1.80) % Haptoglobin 290.0 H (31.2-198.0) mg/dL Sodium (137-145) mmol/L Potassium (3.5-5.1) mmol/L Chloride (98-107) mmol/L Creatinine (0.66-1.25) mg/dL Glucose (74-99) mg/dL POC Glucose (mg/dL) (70-110) mg/dL Calcium (8.4-10.2) mg/dL Iron 26 L (65-175) UG/DL TIBC 129 L (228-460) UG/DL Transferrin 92.1 L (204.0-354.0) mg/dL Ferritin 708.0 H (22.0-322.0) ng/mL 0712/24/24 12/24/24 Range/Units 18:09 18:35 23:04 WBC (4.50-10.00) 10*3/uL RBC (4.40-5.60) 10*6/uL Hgb (13.0-17.0) g/dL Hct (39.6-50.0) % MCH (27.0-32.0) pg Plt Count (140-440) 10*3/uL Neutrophils # (1.80-7.70) 10*3/uL Lymphocytes # (0.90-5.00) 10*3/uL Monocytes # (0.20-1.00) 10*3/uL Eosinophils # (0.04-0.35) 10*3/uL Retic Count (0.10-1.80) % Haptoglobin (31.2-198.0) mg/dL Sodium (137-145) mmol/L Potassium 5.2 H (3.5-5.1) mmol/L Chloride (98-107) mmol/L Creatinine (0.66-1.25) mg/dL Glucose (74-99) mg/dL POC Glucose (mg/dL) 146 H 154 H (70-110) mg/dL Calcium (8.4-10.2) mg/dL Iron (65-175) UG/DL TIBC (228-460) UG/DL Transferrin (204.0-354.0) mg/dL Ferritin (22.0-322.0) ng/mL 12/25/24 12/25/24 12/25/24 Range/Units 05:41 05:41 05:46 WBC 2.21 L (4.50-10.00) 10*3/uL RBC 2.09 L (4.40-5.60) 10*6/uL Hgb 7.1 L (13.0-17.0) g/dL Hct 20.2 L (39.6-50.0) % MCH 34.0 H (27.0-32.0) pg Plt Count 46 L (140-440) 10*3/uL Neutrophils # 1.50 L (1.80-7.70) 10*3/uL Lymphocytes # 0.61 L (0.90-5.00) 10*3/uL Monocytes # 0.08 L (0.20-1.00) 10*3/uL Eosinophils # 0.00 L (0.04-0.35) 10*3/uL Retic Count (0.10-1.80) % Haptoglobin (31.2-198.0) mg/dL Sodium 127 L (137-145) mmol/L Potassium (3.5-5.1) mmol/L Chloride 94 L (98-107) mmol/L Creatinine 0.30 L (0.66-1.25) mg/dL Glucose 128 H (74-99) mg/dL POC Glucose (mg/dL) 147 H (70-110) mg/dL Calcium 7.2 L (8.4-10.2) mg/dL Iron (65-175) UG/DL TIBC (228-460) UG/DL Transferrin (204.0-354.0) mg/dL Ferritin (22.0-322.0) ng/mL 12/25/24 Range/Units 11:27 WBC (4.50-10.00) 10*3/uL RBC (4.40-5.60) 10*6/uL Hgb (13.0-17.0) g/dL Hct (39.6-50.0) % MCH (27.0-32.0) pg Plt Count (140-440) 10*3/uL Neutrophils # (1.80-7.70) 10*3/uL Lymphocytes # (0.90-5.00) 10*3/uL Monocytes # (0.20-1.00) 10*3/uL Eosinophils # (0.04-0.35) 10*3/uL Retic Count (0.10-1.80) % Haptoglobin (31.2-198.0) mg/dL Sodium (137-145) mmol/L Potassium (3.5-5.1) mmol/L Chloride (98-107) mmol/L Creatinine (0.66-1.25) mg/dL Glucose (74-99) mg/dL POC Glucose (mg/dL) 178 H (70-110) mg/dL Calcium (8.4-10.2) mg/dL Iron (65-175) UG/DL TIBC (228-460) UG/DL Transferrin (204.0-354.0) mg/dL Ferritin (22.0-322.0) ng/mL Microbiology - Last 24 Hours (Table) 12/21/24 10:50 Blood Culture - Preliminary Blood 12/22/24 06:01 Blood Culture - Preliminary Blood
--- NOTE | 2024-12-25 15:43 | P.PN ---
Subjective Progress Note Date: 12/25/24 Patient is a 74-year-old male with past medical history significant for head/neck cancer diagnosed back in April,. 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 Previously on carbo/Taxol, subsequently on Keytruda. PET scan from June, demonst rating a 2.8 x 2.2 cm parapharyngeal mass. FDG avid left upper lobe pulmonary nodule. Since then, concerns for disease progression. MRI brain from Oct, 2024 showing a left pharyngeal mass larger than previous PET scan with extension through the jugular eason to the cerebellar pontine angle. With vasogenic edema in the adjacent cerebellum with some mass effect. Currently, undergoing radiation treatments. Also, takes oral Decadron. Chest CT angiogram from Oct, 2024 remarkable for increased size and number of pulmonary nodules. Largest nodule in the left upper lung measuring 2.1 cm. Additional multiple enlarged mediastinal lymph nodes. Did have issues with swallowing and did have a PEG tube placed at an outside facility. He has had multiple hospitalizations related to related complications of his cancer and treatments. He follows with his established oncologist Dr. De Jesus. Additional past medical history including hyperlipidemia, diabetes, atrial fibrillation, heart failure. Echocardiogram from July, estimating left ventricular ejection fraction of 45 to 50%. Patient currently being evaluated on the oncology unit. He is a poor historian. Apparently, brought into the emergency department back on 12/17/2024 for nausea, vomiting, and generalized weakness. Also, family was reporting fevers at home. Concerns of sepsis. While in the ED, noted to be in atrial f ibrillation with RVR, started on Cardizem infusion for rate control. Blood pressure was marginal and the patient was fluid resuscitated with a total of 2.5 L of LR. Chest x-ray remarkable for cardiomegaly, pulmonary vascular congestion, and bibasilar airspace opacities. NT proBNP 2140. CBC with a WBC count of 3.47, hemoglobin 7.9 g/dL, platelets 91,000. CMP: Sodium 127, potassium 4.2, chloride 99, serum bicarb 22, BUN 17, creatinine 0.43, glucose 205. Lactic was elevated at 4.8 is down to 1.7. Urinalysis unremarkable for infection. Viral screen negative for influenza A/B, RSV, COVID. Urine Legionella antigen negative. Started empirically on Zosyn previously. No recorded fevers while inpatient. No observed coughing. He is on room air. Does not appear in any respiratory distress. LR infusing at 75 mL/h. Cardizem has previously been discontinued. Most recent vital signs including a temperature of 97.4 F, heart rate 88 bpm, blood pressure 99/60 mmHg, nontachypneic, SpO2 re corded at 93% on room air. The patient is seen today December 20, 2024 in follow-up on the regular medical floor. He is currently awake and alert. Sitting up in bed. He has a loose congested cough. He is maintaining good O2 saturations in the mid 90s on room air oxygen. He has been afebrile. Slightly tachycardic. Follow-up chest x-ray shows similar bibasilar patchy airspace opacities. Blood culture reveals no growth. White count 1.87. Hemoglobin 7.5. Platelets 65,000. Sodium 125. Potassium 3.8. Bicarb 23. BUN 8. Creatinine 0.26. Glucose 106. proBNP 3260. Procalcitonin was negative at 0.35. TSH 2.16. He remains anticoagulated with Eliquis. Being nourished with Jevity 1.5 bolus tube feedings of 240 mL 6 times per day. Normal saline at 50 mL/h. The patient is seen today December 21, 2024 in follow-up on the regular medical floor. He is currently resting in bed. In no acute distress. Maintaining O2 saturations in the 90s on room air oxygen. He remains on Zosyn. Blood culture revealed no growth. Sputum culture pending. He did have a temperature of 101.7 last evening. White count 3.1. Hemoglobin 9.2. Platelets 74,000. Sodium 127. Potassium 4.0. Bicarb 22. BUN 11. Creatinine 0.39. Glucose 190. He is continued on Jevity 1.5 bolus feedings. Remains on normal saline at 50 mL/h. Scopolamine patch in place. The patient is seen today December 22, 2024 in follow-up in the intensive care unit. He was placed here as a 3 S. overflow patient as he developed atrial fibrillation with rapid ventricular response, hypoxemia and thick secretions. He is currently sitting up in bed. Awake and alert in no acute distress. Maintaining O2 saturations in the 90s on 2 L/min per nasal cannula. Chest x-ray showed cardiomegaly with mild interstitial changes and mild interstitial pulmonary edema. CT scan of the abdomen and pelvis revealed no evidence of bowel obstruction. PEG tube in appropriate position. White count 1.79. Hemoglobin 7.0. Platelets 51,000. Sodium 07/13/2026. Potassium 3.4. Bicarb 27. BUN 13. Creatinine 0.34. Procalcitonin again negative at 0.24. Cortisol low at 2.9. He is currently on amiodarone drip at 1 mg/min. He is anticoagula jesus with Eliquis. He remains on Jevity tube feedings. Remains on bronchodilators. Antibiotics in the form of Zosyn. Scopolamine patch in place. The patient is seen today December 23, 2024 in follow-up in the intensive care unit. He had been moved out to [facility] yesterday but developed another episode of aspiration and was brought back into the intensive care unit. A nasogastric tube was inserted to assure gastric contents were not continuing to be aspirated. PEG tube remains in place. Abdominal x-ray revealed nonspecific bowel gas pattern without evidence of acute process. Today's chest x-ray shows ill-defined interstitial and small airspace infiltrates bilaterally. No significant change. Nasogastric tube in place. Sputum culture showing Serratia marcescens. Corynebacterium stratum group. White count 2.6. Hemoglobin 6.3. Platelets 47,000. Sodium 127. Potassium 4.0. Bicarb 23. BUN 13. Creatinine 0.29. Glucose 94. He is currently on cefepime and vancomycin. Remains on D uoNeb inhalations. Scopolamine patch in place. He is currently requiring 10 L high flow nasal cannula to maintain O2 saturations in the 90s. He is afebrile. In A-fib with heart rate in the 100s. He is currently on amiodarone at 0.5 mg/min. Continued on Lopressor. Eliquis on hold due to his anemia. Receiving 1 unit of packed red blood cells today. The patient is seen today December 24, 2024 in follow-up in the intensive care unit. He is currently sitting up in bed. Awake and alert. He is maintaining O2 saturations in the 90s on 2 L/min per nasal cannula. He has normal saline at 10 mL/h. He is receiving Jevity 1.5 at 10 mL/h via the PEG tube. He has been transition to oral amiodarone. Sputum cultures positive for Serratia marcescens. White count 3.75. Hemoglobin 7.5. Platelets 49,000. Sodium 126. Potassium 3.4. Bicarb 25. BUN 14. Creatinine 0.32. Chest x-ray revealed mild reduction in the diffuse bilateral cardiopulmonary process. He is currently afebrile. Slightly tachycardic. He remains on DuoNeb inhalations. Antibiotics in the form of cefepime. 12/25/2024, the patient is being seen for a follow-up. The patient continues to have congested cough and he continues to have shortness of breath even at rest. NG tube is in place and the patient also has a PEG tube in place. Extremely dry mouth with multiple dried scabs and thickened secretions covering the roof of the mouth there was removed at the bedside this morning. Remains on broad- spectrum antibiotics. The patient is on on IV cefepime and the sputum sample was positive for Serratia marcescens. The chest x-ray from this morning still showing borderline cardiomegaly and diffuse interstitial densities bilaterally and worsening airspace disease in the left lung base. Nodular appearance/densit y in the left suprahilar area is also seen. Very weak and debilitated and continues to have a weak cough. The white cell count at 2.2 with a heme of 7.1 and a platelet count of 46. Sodium is at 127 with a potassium level of 3.5, BUN is 9 with a creatinine of 0.3. The patient is currently on Jevity via PEG tube at 10 cc an hour. He is on oxygen 2 L/min nasal cannula. IV fluids are currently at KVO. Cardiac rhythm remains atrial fibrillation. He is on oral amiodarone for rate control at a dose of 200 mg p.o. twice a day in combination with metoprolol 50 mg p.o. twice daily. Somewhat confused. Unable to follow commands consistently. Objective - Vital Signs Vital signs: Vital Signs Temp 98.4 F 12/25/24 07:00 Pulse 116 H 12/25/24 07:00 Resp 23 12/25/24 07:00 BP 125/72 12/25/24 07:00 Pulse Ox 99 12/25/24 07:00 FiO2 Intake & Output 12/24/24 12/25/24 12/25/24 18:59 06:59 18:59 Intake Total 480 440 150 Output Total 533 745 45 Balance -53 -305 105 Weight 85.6 kg Intake: IV 330 210 10 0.9 Normal Saline @ KVO 130 110 10 Cefepime 2 gm In Sodium 200 100 Chloride 0.9% 100 ml @ 25 mls/hr IVPB Q8HR AJIT Rx# :[id number] Intake, IV Titration 100 Amount Magnesium Sulfate-D5w Pmx 100 1 gm In Dextrose/Water 1 100ml.bag @ 100 mls/hr IVPB Q1H AJIT Rx#: [id number] Tube Feeding 90 110 10 Other 60 120 30 Output: Urine 533 745 45 Other: Voiding Method Indwelling Catheter Indwelling Catheter # Bowel Movements 1 1 - Exam GENERAL EXAM: Alert, 74-year-old male, resting in bed, on 2 L nasal cannula, in no apparent distress. Patient has an NG tube in place. HEAD: Normocephalic and atraumatic EYES: Normal reaction of pupils, equal size. NOSE: Clear with pink turbinates. Nasogastric tube secured in place. THROAT: No erythema or exudates. Dry mucous membranes. NECK: No masses, no JVD. CHEST: No chest wall deformity. LUNGS: Equal air entry with scattered rhonchi. Loose congested cough. CVS: S1 and S2 normal with no audible murmur, irregular rhythm. No extra heart sounds. ABDOMEN: No hepatosplenomegaly, active bowel sounds, no guarding or rigidity. PEG tube noted. SPINE: No scoliosis or deformity SKIN: No rashes CENTRAL NERVOUS SYSTEM: Patient is alert, only oriented to self, will follow some simple commands, no focal deficits, tone is normal in all 4 extremities. Profound weakness in all 4 extremities along with some baseline confusion. EXTREMITIES: There is no peripheral edema, clubbing, or cyanosis. Peripheral pulses are intact. - Labs CBC & Chem 7: 12/25/24 05:41 12/25/24 11:24 Labs: Abnormal Lab Results - Last 24 Hours (Table) 12/23/24 12/23/24 12/23/24 Range/Units 04:58 04:58 04:58 WBC (4.50-10.00) 10*3/uL RBC (4.40-5.60) 10*6/uL Hgb (13.0-17.0) g/dL Hct (39.6-50.0) % MCH (27.0-32.0) pg Plt Count (140-440) 10*3/uL Retic Count (0.10-1.80) % Haptoglobin 290.0 H (31.2-198.0) mg/dL Fibrinogen (200-500) mg/dL Sodium (137-145) mmol/L Potassium (3.5-5.1) mmol/L Chloride (98-107) mmol/L Creatinine (0.66-1.25) mg/dL Glucose (74-99) mg/dL POC Glucose (mg/dL) (70-110) mg/dL Calcium (8.4-10.2) mg/dL Iron 26 L (65-175) UG/DL TIBC 129 L (228-460) UG/DL Transferrin 92.1 L (204.0-354.0) mg/dL Ferritin 708.0 H (22.0-322.0) ng/mL Lactate Dehydrogenase 289 H (120-246) U/L 12/24/24 12/24/24 12/24/24 Range/Units 05:48 09:49 11:21 WBC (4.50-10.00) 10*3/uL RBC (4.40-5.60) 10*6/uL Hgb (13.0-17.0) g/dL Hct (39.6-50.0) % MCH (27.0-32.0) pg Plt Count (140-440) 10*3/uL Retic Count 3.11 H (0.10-1.80) % Haptoglobin (31.2-198.0) mg/dL Fibrinogen 717 H (200-500) mg/dL Sodium (137-145) mmol/L Potassium (3.5-5.1) mmol/L Chloride (98-107) mmol/L Creatinine (0.66-1.25) mg/dL Glucose (74-99) mg/dL POC Glucose (mg/dL) 121 H (70-110) mg/dL Calcium (8.4-10.2) mg/dL Iron (65-175) UG/DL TIBC (228-460) UG/DL Transferrin (204.0-354.0) mg/dL Ferritin (22.0-322.0) ng/mL Lactate Dehydrogenase (120-246) U/L 12/24/24 12/24/24 12/24/24 Range/Units 18:09 18:35 23:04 WBC (4.50-10.00) 10*3/uL RBC (4.40-5.60) 10*6/uL Hgb (13.0-17.0) g/dL Hct (39.6-50.0) % MCH (27.0-32.0) pg Plt Count (140-440) 10*3/uL Retic Count (0.10-1.80) % Haptoglobin (31.2-198.0) mg/dL Fibrinogen (200-500) mg/dL Sodium (137-145) mmol/L Potassium 5.2 H (3.5-5.1) mmol/L Chloride (98-107) mmol/L Creatinine (0.66-1.25) mg/dL Glucose (74-99) mg/dL POC Glucose (mg/dL) 146 H 154 H (70-110) mg/dL Calcium (8.4-10.2) mg/dL Iron (65-175) UG/DL TIBC (228-460) UG/DL Transferrin (204.0-354.0) mg/dL Ferritin (22.0-322.0) ng/mL Lactate Dehydrogenase (120-246) U/L 12/25/24 12/25/24 12/25/24 Range/Units 05:41 05:41 05:46 WBC 2.21 L (4.50-10.00) 10*3/uL RBC 2.09 L (4.40-5.60) 10*6/uL Hgb 7.1 L (13.0-17.0) g/dL Hct 20.2 L (39.6-50.0) % MCH 34.0 H (27.0-32.0) pg Plt Count 46 L (140-440) 10*3/uL Retic Count (0.10-1.80) % Haptoglobin (31.2-198.0) mg/dL Fibrinogen (200-500) mg/dL Sodium 127 L (137-145) mmol/L Potassium (3.5-5.1) mmol/L Chloride 94 L (98-107) mmol/L Creatinine 0.30 L (0.66-1.25) mg/dL Glucose 128 H (74-99) mg/dL POC Glucose (mg/dL) 147 H (70-110) mg/dL Calcium 7.2 L (8.4-10.2) mg/dL Iron (65-175) UG/DL TIBC (228-460) UG/DL Transferrin (204.0-354.0) mg/dL Ferritin (22.0-322.0) ng/mL Lactate Dehydrogenase (120-246) U/L Microbiology - Last 24 Hours (Table) 12/21/24 10:50 Blood Culture - Preliminary Blood 12/22/24 06:01 Blood Culture - Preliminary Blood Assessment and Plan Plan: Intractable nausea and vomiting with concerns for aspiration, currently has an NG tube in place and the patient also has a PEG tube for enteral feeding and nutritional support. Acute hypoxic respiratory failure currently on 2 L of oxygen by nasal cannula Bilateral pneumonia secondary to Serratia marcescens, currently on IV cefepime. Chest x-ray continues to show bilateral pulmonary infiltrates and airspace dise ase worse in the left lung base Atrial fibrillation with rapid ventricular response, rate is under better control and the patient is currently on oral amiodarone and metoprolol. Cardizem drip has been discontinued. Metastatic oropharyngeal cancer, brain MRI from Oct, 2024 showing a left pharyngeal mass larger than previous PET scan with extension through the jugular eason to the cerebellar pontine angle. With vasogenic edema in the adjacent cerebellum with some mass effect. Chest CT angiogram from Oct, 2024 remarkable for increased size and number of pulmonary nodules. Largest nodule in the left upper lung measuring 2.1 cm. Additional multiple enlarged mediastinal lymph nodes Altered mental status, likely secondary to above Chronic dysphagia and previous PEG tube placement Pancytopenia posttransfusion 1 unit of packed RBC Hyponatremia, consider SIADH, sodium level is improved and stable Chronic systolic heart failure with reduced ejection fraction History of hyperlipidemia Diabetes mellitus, insulin-dependent Plan: This patient is significant debilitated and he cares a very poor prognosis. Will remove the NG tube for now Continue enteral feeding via PEG tube Continue Humalog insulin for blood sugar control Continue oral amiodarone and oral metoprolol for rate control The patient was placed on lactated Ringer at 75 cc an hour Aspiration precautions Repeat chest x-ray within next 24 hours Patient and his family are considering comfort care measures/hospice probably the next 24 hours. Meanwhile, the patient will be kept in the intensive care unit for now for further monitoring. His current CODE STATUS is DNR/DNI. Evaluation was done and 35 minutes, critical care evaluation. Time with Patient: Greater than 30
--- NOTE | 2024-12-25 17:57 | P.PN ---
Subjective Progress Note Date: 12/25/24 Principal diagnosis: Pneumonia, weakness. Recurrent head/neck malignancy In f/u today pt cont to be very lethargic, falls back to sleep very quickly. Objective - Vital Signs Vital signs: Vital Signs Temp 98.9 F 12/25/24 12:00 Pulse 109 H 12/25/24 13:00 Resp 28 H 12/25/24 13:00 BP 104/65 12/25/24 13:00 Pulse Ox 99 12/25/24 13:00 FiO2 2 12/25/24 12:00 Intake & Output 12/24/24 12/25/24 12/25/24 18:59 06:59 18:59 Intake Total 480 440 545 Output Total 533 745 328 Balance -53 -305 217 Weight 85.6 kg 85.6 kg Intake: IV 330 210 325 0.9 Normal Saline @ KVO 130 110 50 Cefepime 2 gm In Sodium 200 100 100 Chloride 0.9% 100 ml @ 25 mls/hr IVPB Q8HR AJIT Rx# :[id number] Lactated Ringers 1,000 ml 75 @ 75 mls/hr IV .[id number] AJIT Rx#:[id number] Magnesium Sulfate-D5w Pmx 100 1 gm In Dextrose/Water 1 100ml.bag @ 100 mls/hr IVPB Q1H AJIT Rx#: [id number] Intake, IV Titration 100 Amount Magnesium Sulfate-D5w Pmx 100 1 gm In Dextrose/Water 1 100ml.bag @ 100 mls/hr IVPB Q1H AJIT Rx#: [id number] Tube Feeding 90 110 60 Other 60 120 60 Output: Urine 533 745 328 Other: Voiding Method Indwelling Catheter Indwelling Catheter # Bowel Movements 1 1 - Constitutional General appearance: Present: average body habitus, cooperative, no acute distress - Labs CBC & Chem 7: 12/25/24 05:41 12/25/24 11:24 Labs: Abnormal Lab Results - Last 24 Hours (Table) 12/24/24 12/24/24 12/24/24 Range/Units 18:09 18:35 23:04 WBC (4.50-10.00) 10*3/uL RBC (4.40-5.60) 10*6/uL Hgb (13.0-17.0) g/dL Hct (39.6-50.0) % MCH (27.0-32.0) pg Plt Count (140-440) 10*3/uL Neutrophils # (1.80-7.70) 10*3/uL Lymphocytes # (0.90-5.00) 10*3/uL Monocytes # (0.20-1.00) 10*3/uL Eosinophils # (0.04-0.35) 10*3/uL Sodium (137-145) mmol/L Potassium 5.2 H (3.5-5.1) mmol/L Chloride (98-107) mmol/L Creatinine (0.66-1.25) mg/dL Glucose (74-99) mg/dL POC Glucose (mg/dL) 146 H 154 H (70-110) mg/dL Calcium (8.4-10.2) mg/dL 12/25/24 12/25/24 12/25/24 Range/Units 05:41 05:41 05:46 WBC 2.21 L (4.50-10.00) 10*3/uL RBC 2.09 L (4.40-5.60) 10*6/uL Hgb 7.1 L (13.0-17.0) g/dL Hct 20.2 L (39.6-50.0) % MCH 34.0 H (27.0-32.0) pg Plt Count 46 L (140-440) 10*3/uL Neutrophils # 1.50 L (1.80-7.70) 10*3/uL Lymphocytes # 0.61 L (0.90-5.00) 10*3/uL Monocytes # 0.08 L (0.20-1.00) 10*3/uL Eosinophils # 0.00 L (0.04-0.35) 10*3/uL Sodium 127 L (137-145) mmol/L Potassium (3.5-5.1) mmol/L Chloride 94 L (98-107) mmol/L Creatinine 0.30 L (0.66-1.25) mg/dL Glucose 128 H (74-99) mg/dL POC Glucose (mg/dL) 147 H (70-110) mg/dL Calcium 7.2 L (8.4-10.2) mg/dL 12/25/24 Range/Units 11:27 WBC (4.50-10.00) 10*3/uL RBC (4.40-5.60) 10*6/uL Hgb (13.0-17.0) g/dL Hct (39.6-50.0) % MCH (27.0-32.0) pg Plt Count (140-440) 10*3/uL Neutrophils # (1.80-7.70) 10*3/uL Lymphocytes # (0.90-5.00) 10*3/uL Monocytes # (0.20-1.00) 10*3/uL Eosinophils # (0.04-0.35) 10*3/uL Sodium (137-145) mmol/L Potassium (3.5-5.1) mmol/L Chloride (98-107) mmol/L Creatinine (0.66-1.25) mg/dL Glucose (74-99) mg/dL POC Glucose (mg/dL) 178 H (70-110) mg/dL Calcium (8.4-10.2) mg/dL Microbiology - Last 24 Hours (Table) 12/22/24 06:01 Blood Culture - Preliminary Blood 12/21/24 10:50 Blood Culture - Preliminary Blood Assessment and Plan (1) Head and neck cancer Current Visit: Yes Status: Acute Priority: Medium Code(s): C76.0 - MALIGNANT NEOPLASM OF HEAD, FACE AND NECK SNOMED Code(s): 196732125 (2) Atrial fibrillation with RVR Current Visit: Yes Status: Acute Priority: High Code(s): I48.91 - UNSPECIFIED ATRIAL FIBRILLATION SNOMED Code(s): 728056260506324 (3) Pneumonia Current Visit: Yes Status: Acute Priority: High Code(s): J18.9 - PNEUM ONIA, UNSPECIFIED ORGANISM SNOMED Code(s): 393428421 (4) Weak Current Visit: Yes Status: Acute Priority: High Code(s): R53.1 - WEAKNESS SNOMED Code(s): 87659070 Plan: Recurrent head neck malignancy - Patient has had a recurrence of his malignancy within a few months of completing initial definitive treatment. The neck mass is growing up and compressing the brain. Patient was receiving radiation for palliation. -Case has been reviewed with Critical Care team, IM and pt . Concerns for pt not showing any improvements. -Goals of care discussed - wanting to take pt home with Hospice support. Agree with the same. -Hospice team meeting with and assessing pt. -Agree with discharge home as soon as DME in place Doctor attests: I performed a history and physical examination of this patient, developed impression and plan of care. Discussed with dictator. I agree with dictators note, documented as a scribe.
[2024-12-25 18:11] LABS: Glucose,Whole Blood 143 mg/dL (70-110)
[2024-12-25 23:51] LABS: Glucose,Whole Blood 186 mg/dL (70-110)
[2024-12-26 05:40] LABS: Glucose,Whole Blood 142 mg/dL (70-110)
[2024-12-26 05:43] LABS: Immature Platelet Fraction 2.4 % (1.1-6.1); MCH 33.3 pg (27.0-32.0); MCHC 34.3 g/dL (32.0-37.0); MCV 97.1 fL (80.0-97.0); RBC 2.04 10*6/uL (4.40-5.60); RDW 18.4 % (11.5-14.5); WBC 1.69 10*3/uL (4.50-10.00)
[2024-12-26 06:03] LABS: HCT 19.8 % (39.6-50.0); HGB 6.8 g/dL (13.0-17.0)
[2024-12-26 06:05] LABS: African American GFR (CKD) >90 (>60 ml/min/1.73 sqM); Anion Gap 6 mmol/L; Blood Urea Nitrogen 8 mg/dL (9-20); Calcium 7.4 mg/dL (8.4-10.2); Carbon Dioxide 27 mmol/L (22-30); Chloride 96 mmol/L (98-107); Glucose 129 mg/dL (74-99); Non-African American GFR(CKD) >90 (>60 ml/min/1.73 sqM); Potassium 3.7 mmol/L (3.5-5.1); Sodium 129 mmol/L (137-145)
[2024-12-26 06:07] LABS: Platelet Count 42 10*3/uL (140-440)
[2024-12-26] MEDS: POTASSIUM BICARBONATE/CIT AC 20 MEQ TABLET.EFF NG-TUBE SCH (06:25)
[2024-12-26] MEDS: MAGNESIUM SULFATE-D5W PMX 1 GM in DEXTROSE/WATER 1 100ML.BAG IVPB SCH (06:33)
[2024-12-26 07:07] LABS: HCT 21.3 % (39.6-50.0); HGB 7.2 g/dL (13.0-17.0); MCH 33.2 pg (27.0-32.0); MCHC 33.8 g/dL (32.0-37.0); MCV 98.2 fL (80.0-97.0); RBC 2.17 10*6/uL (4.40-5.60); RDW 18.6 % (11.5-14.5); WBC 1.75 10*3/uL (4.50-10.00)
--- NOTE | 2024-12-26 07:24 | P.PN ---
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 He had intractable nausea and vomiting. On his chest CT there was increase in the size and number of the pulmonary nodules with enlarged mediastinal lymph nodes. He continues to be in atrial fibrillation w ith episode of rapid ventricular response. His blood pressure has been stable and his urine output has been stable. He has a PEG tube as well is an NG tube. He is getting tube feeding. He had no evidence of hypertension. His sputum culture was positive for Serratia marcescens. December 26: The patient continues to be somnolent, in atrial fibrillation with episodes of rapid ventricular response. The family is discussing hospice care because of his malignancy and progression of disease. His blood pressure has been stable. His urinary output has been stable. There is no episodes of ventricular tachyarrhythmia. NG tube has been removed Medications: Amiodarone 200 mg twice a day, metoprolol tartrate 50 mg 2 times a day, PHYSICAL EXAMINATION: Blood pressure 127/70 heart rate 120 LUNGS: Clear to auscultation HEART: Irregular rate and rhythm, S1, S2. No S3. Systolic ejection murmur ABDOMEN: Soft, nontender, no organomegaly PEG tube in place EXTREMETIES: +1 edema LAB: Hemoglobin 6.8, WBC 1.69, platelet 42,000, potassium 3.7, BUN 8, creatinine 0.23, sodium 129 IMPRESSION: 1. Probable aspiration pneumonia 2. 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 Atrial fibrillation with rapid ventricular response 4. Pancytopenia 5. Hyponatremia 6. Persistent nausea and vomiting PLAN: 1. Continue supportive care 2. Await family decision regarding hospice care 3. Increase beta-gagan Objective - Vital Signs Vital signs: Vital Signs Temp 98.8 F 12/26/24 04:00 Pulse 121 H 12/26/24 07:00 Resp 23 12/26/24 07:00 BP 127/72 12/26/24 07:00 Pulse Ox 97 12/26/24 07:00 FiO2 2 12/25/24 12:00 Intake & Output 12/25/24 12/26/24 12/26/24 18:59 06:59 18:59 Intake Total 1205 1330 225 Output Total 688 745 30 Balance 517 585 195 Weight 85.6 kg 82.9 kg Intake: IV 875 1000 175 0.9 Normal Saline @ KVO 50 Cefepime 2 gm In Sodium 200 100 Chloride 0.9% 100 ml @ 25 mls/hr IVPB Q8HR AJIT Rx# :[id number] Lactated Ringers 1,000 ml 525 900 75 @ 75 mls/hr IV .[id number] AJIT Rx#:[id number] Magnesium Sulfate-D5w Pmx 100 100 1 gm In Dextrose/Water 1 100ml.bag @ 100 mls/hr IVPB Q1H AJIT Rx#: [id number] Intake, IV Titration 100 Amount Magnesium Sulfate-D5w Pmx 100 1 gm In Dextrose/Water 1 100ml.bag @ 100 mls/hr IVPB Q1H AJIT Rx#: [id number] Tube Feeding 140 240 20 Other 90 90 30 Output: Urine 688 695 30 Oral Regurgitation 50 Other: Voiding Method Indwelling Catheter Indwelling Catheter # Bowel Movements 1 - Labs CBC & Chem 7: 12/26/24 05:29 12/26/24 05:29 Labs: Abnormal Lab Results - Last 24 Hours (Table) 12/25/24 12/25/24 12/25/24 Range/Units 05:41 11:27 18:10 WBC 2.21 L (4.50-10.00) 10*3/uL RBC 2.09 L (4.40-5.60) 10*6/uL Hgb 7.1 L (13.0-17.0) g/dL Hct 20.2 L (39.6-50.0) % MCV (80.0-97.0) fL MCH 34.0 H (27.0-32.0) pg Plt Count 46 L (140-440) 10*3/uL Neutrophils # 1.50 L (1.80-7.70) 10*3/uL Lymphocytes # 0.61 L (0.90-5.00) 10*3/uL Monocytes # 0.08 L (0.20-1.00) 10*3/uL Eosinophils # 0.00 L (0.04-0.35) 10*3/uL Sodium (137-145) mmol/L Chloride (98-107) mmol/L BUN (9-20) mg/dL Creatinine (0.66-1.25) mg/dL Glucose (74-99) mg/dL POC Glucose (mg/dL) 178 H 143 H (70-110) mg/dL Calcium (8.4-10.2) mg/dL Magnesium (1.6-2.3) mg/dL 12/25/24 12/26/24 12/26/24 Range/Units 23:49 05:29 05:29 WBC (4.50-10.00) 10*3/uL RBC (4.40-5.60) 10*6/uL Hgb (13.0-17.0) g/dL Hct (39.6-50.0) % MCV (80.0-97.0) fL MCH (27.0-32.0) pg Plt Count (140-440) 10*3/uL Neutrophils # (1.80-7.70) 10*3/uL Lymphocytes # (0.90-5.00) 10*3/uL Monocytes # (0.20-1.00) 10*3/uL Eosinophils # (0.04-0.35) 10*3/uL Sodium 129 L (137-145) mmol/L Chloride 96 L (98-107) mmol/L BUN 8 L (9-20) mg/dL Creatinine 0.23 L (0.66-1.25) mg/dL Glucose 129 H (74-99) mg/dL POC Glucose (mg/dL) 186 H (70-110) mg/dL Calcium 7.4 L (8.4-10.2) mg/dL Magnesium 1.5 L (1.6-2.3) mg/dL 12/26/24 12/26/24 Range/Units 05:29 05:38 WBC 1.69 L (4.50-10.00) 10*3/uL RBC 2.04 L (4.40-5.60) 10*6/uL Hgb 6.8 L* (13.0-17.0) g/dL Hct 19.8 L* (39.6-50.0) % MCV 97.1 H (80.0-97.0) fL MCH 33.3 H (27.0-32.0) pg Plt Count 42 L (140-440) 10*3/uL Neutrophils # (1.80-7.70) 10*3/uL Lymphocytes # (0.90-5.00) 10*3/uL Monocytes # (0.20-1.00) 10*3/uL Eosinophils # (0.04-0.35) 10*3/uL Sodium (137-145) mmol/L Chloride (98-107) mmol/L BUN (9-20) mg/dL Creatinine (0.66-1.25) mg/dL Glucose (74-99) mg/dL POC Glucose (mg/dL) 142 H (70-110) mg/dL Calcium (8.4-10.2) mg/dL Magnesium (1.6-2.3) mg/dL Microbiology - Last 24 Hours (Table) 12/22/24 06:01 Blood Culture - Preliminary Blood
[2024-12-26 07:29] LABS: Platelet Count 39 10*3/uL (140-440)
[2024-12-26] MEDS: METOPROLOL TARTRATE 50 MG TAB PEG/G-TUBE SCH (08:07)
--- NOTE | 2024-12-26 08:14 | XR ---
EXAMINATION TYPE: XR chest 1V portable DATE OF EXAM: 12/26/2024 5:41 AM COMPARISON: 12/25/2024 CLINICAL INDICATION: Male, 74 years old with history of left lung consolidation follow up, , FINDINGS: Heart upper limits of normal in size. Multifocal patchy opacities, right greater than left have worse ijeoma in the interval. No sizable pleural effusion. IMPRESSION: Worsening now with multifocal patchy infiltrates. [facility], , 12/26/2024 8:12 AM
[2024-12-26 08:24] LABS: Anisocytosis (M) Present; Lymphocytes # (M) 0.53 k/uL (1.0-4.8); Monocytes # (M) 0.12 k/uL (0-1.0); Neutrophils # (M) 1.10 k/uL (1.3-7.7); Neutrophils % (M) 61 %; Poikilocytosis (M) Present; Total Cells Counted 100
[2024-12-26 08:26] VITALS: TEMP 101.4
--- NOTE | 2024-12-26 10:03 | P.PN ---
Subjective Patient is seen in follow-up for hyponatremia. Sodium level 129 today. Receiving tube feeds. Also on IV fluids. Vital signs are stable. General: Resting in bed. HEENT: Head exam is unremarkable. On nasal cannula. LUNGS: Scattered rhonchi. HEART: Tachycardic. ABDOMEN: Nontender. EXTREMITITES: No edema. Objective - Vital Signs Vital signs: Vital Signs Temp 101.4 F H 12/26/24 08:00 Pulse 97 12/26/24 09:00 Resp 25 H 12/26/24 09:00 BP 127/65 12/26/24 09:00 Pulse Ox 97 12/26/24 09:00 FiO2 2 12/25/24 12:00 Intake & Output 12/25/24 12/26/24 12/26/24 18:59 06:59 18:59 Intake Total 1205 1330 615 Output Total 688 745 120 Balance 517 585 495 Weight 85.6 kg 82.9 kg Intake: IV 875 1000 525 0.9 Normal Saline @ KVO 50 Cefepime 2 gm In Sodium 200 100 100 Chloride 0.9% 100 ml @ 25 mls/hr IVPB Q8HR AJIT Rx# :[id number] Lactated Ringers 1,000 ml 525 900 225 @ 75 mls/hr IV .[id number] AJIT Rx#:[id number] Magnesium Sulfate-D5w Pmx 100 200 1 gm In Dextrose/Water 1 100ml.bag @ 100 mls/hr IVPB Q1H AJIT Rx#: [id number] Intake, IV Titration 100 Amount Magnesium Sulfate-D5w Pmx 100 1 gm In Dextrose/Water 1 100ml.bag @ 100 mls/hr IVPB Q1H AJIT Rx#: [id number] Tube Feeding 140 240 60 Other 90 90 30 Output: Urine 688 695 120 Oral Regurgitation 50 Other: Voiding Method Indwelling Catheter Indwelling Catheter Indwelling Catheter # Bowel Movements 1 - Labs CBC & Chem 7: 12/26/24 06:54 12/26/24 05:29 Labs: Abnormal Lab Results - Last 24 Hours (Table) 12/25/24 12/25/24 12/25/24 Range/Units 11:27 18:10 23:49 WBC (4.50-10.00) 10*3/uL RBC (4.40-5.60) 10*6/uL Hgb (13.0-17.0) g/dL Hct (39.6-50.0) % MCV (80.0-97.0) fL MCH (27.0-32.0) pg Plt Count (140-440) 10*3/uL Neutrophils # (Manual) (1.3-7.7) k/uL Lymphocytes # (Manual) (1.0-4.8) k/uL Sodium (137-145) mmol/L Chloride (98-107) mmol/L BUN (9-20) mg/dL Creatinine (0.66-1.25) mg/dL Glucose (74-99) mg/dL POC Glucose (mg/dL) 178 H 143 H 186 H (70-110) mg/dL Calcium (8.4-10.2) mg/dL Magnesium (1.6-2.3) mg/dL 12/26/24 12/26/24 12/26/24 Range/Units 05:29 05:29 05:29 WBC 1.69 L (4.50-10.00) 10*3/uL RBC 2.04 L (4.40-5.60) 10*6/uL Hgb 6.8 L* (13.0-17.0) g/dL Hct 19.8 L* (39.6-50.0) % MCV 97.1 H (80.0-97.0) fL MCH 33.3 H (27.0-32.0) pg Plt Count 42 L (140-440) 10*3/uL Neutrophils # (Manual) (1.3-7.7) k/uL Lymphocytes # (Manual) (1.0-4.8) k/uL Sodium 129 L (137-145) mmol/L Chloride 96 L (98-107) mmol/L BUN 8 L (9-20) mg/dL Creatinine 0.23 L (0.66-1.25) mg/dL Glucose 129 H (74-99) mg/dL POC Glucose (mg/dL) (70-110) mg/dL Calcium 7.4 L (8.4-10.2) mg/dL Magnesium 1.5 L (1.6-2.3) mg/dL 12/26/24 12/26/24 Range/Units 05:38 06:54 WBC 1.75 L (4.50-10.00) 10*3/uL RBC 2.17 L (4.40-5.60) 10*6/uL Hgb 7.2 L (13.0-17.0) g/dL Hct 21.3 L (39.6-50.0) % MCV 98.2 H (80.0-97.0) fL MCH 33.2 H (27.0-32.0) pg Plt Count 39 L (140-440) 10*3/uL Neutrophils # (Manual) 1.10 L (1.3-7.7) k/uL Lymphocytes # (Manual) 0.53 L (1.0-4.8) k/uL Sodium (137-145) mmol/L Chloride (98-107) mmol/L BUN (9-20) mg/dL Creatinine (0.66-1.25) mg/dL Glucose (74-99) mg/dL POC Glucose (mg/dL) 142 H (70-110) mg/dL Calcium (8.4-10.2) mg/dL Magnesium (1.6-2.3) mg/dL Microbiology - Last 24 Hours (Table) 12/22/24 06:01 Blood Culture - Preliminary Blood Assessment and Plan Plan: Assessment: 1. Hyponatremia, euvolemic. Urine sodium 82 and urine osmolality 621. TSH normal. Cortisol level noted to be low at 2.6 dated December 21, 2024. Sodium level better. 2. Pneumonia on antibiotics. 3. A-fib with RVR, on oral meds. Cardiology following. 4. History of CVA. 5. Hypomagnesemia from poor intake, being replaced. Plan: Maintain salt tabs. Maintain tube feeds. Limit free water with tube feeds. Cosyntropin stimulation test suggestive of adrenal insufficiency. Add Solu- Cortef. Repeat labs in the morning. Status post [facility] given December 24, 2024. Hospice meeting this afternoon.
[2024-12-26 10:04] VITALS: BMI 24.7
[2024-12-26 11:06] LABS: Glucose,Whole Blood 203 mg/dL (70-110)
[2024-12-26] MEDS: HYDROCORTISONE SUCCINATE 100 MG/2 ML VIAL IV SCH (11:40)
--- NOTE | 2024-12-26 11:42 | P.DS ---
Providers Date of admission: 12/17/24 17:52 Attending physician: Graeme Galdamez Consults: 12/18/24 10:01 Consult Physician Routine Consulting Provider: Mj Blackman Consult Reason/Comments: afib rvr Do you want consulting provider notified?: Yes 12/18/24 17:50 Consult Physician Routine Consulting Provider: Thuy Brooks Consult Reason/Comments: Aspiration PNA Do you want consulting provider notified?: Yes, Notify in am 12/18/24 17:59 Consult Physician Routine Consulting Provider: Connie De Jesus Consult Reason/Comments: head and neck CA Do you want consulting provider notified?: Yes 12/20/24 12:41 Consult Physician Routine Consulting Provider: Heather Meehan Consult Reason/Comments: hyponatremia, SIADH? Do you want consulting provider notified?: Yes 12/21/24 08:40 Consult Physician Routine Consulting Provider: Medina Daniel Consult Reason/Comments: fevers Do you want consulting provider notified?: Yes 12/22/24 10:28 Consult Physician Routine Consulting Provider: Marcelo Madera Consult Reason/Comments: afib with rvr Do you want consulting provider notified?: Yes [facility]: Discharge Diagnosis: Sepsis send acute hypoxic respiratory failure secondary to recurrent aspiration PNA A-fib with RVR Pancytopenia due to malignancy Type II DM Hyponatremia likely due to SIADH CAD Systolic CHF not in acute exacerbation Head and neck cancer with pancytopenia Hospital Course: 74 year old M with PMH A-Fib, head and neck CA with PEG, CAD, systolic CHF, DM, HLD presents to the ED for lethargy, fever, wet cough and episodes of choking. In the ED he underwent extensive evaluation. BP 88/60, HR 76, T 97.2F, RR 18, 94% on RA. Labs significant for WBC 3.31, RBC 2.82, Hg 10.1, Hct 28.7, MCV 101.8, Plt 111, Na 128, Cl 92, BUN 29, Cr 0.46, glu 183, Lactic acid 2.3-1.7, T. Bili 1.9, alb 3. Amylase 41, Lipiase 43. UA neg LE or nitrite. COVID, RSV, Flu neg. EKG A-Fib with RVR rate 141. CXR showed bilateral infiltrates. Patient was started on Cardizem drip + Rocephin/Azithromycin and admitted for further workup and management. Lasix switched to vancomycin and cefepime per ID recommendations due to sputum cultures growing Serratia and corynebacterium. Hospital course was complicated by A-fib with RVR, cardiology consulted, beta- blockers increased and amiodarone added, digoxin was discontinued. Heme-onc was on board for pancytopenia likely due to malignancy. Nephrology following for hyponatremia likely due to SIADH. Patient was already on palliative treatment for his head and neck cancer, had recurrent aspiration. Goals of care discussion had place with patient's 5 full agreed for hospice, patient will be discharged home with hospice on 12/26/2024. Patient seen and examined at bedside. Vital signs reviewed and stable. General: [Chronically ill-appearing Derm: [warm], [dry] Head: [atraumatic], [normocephalic], [symmetric] Eyes: [EOMI], [no lid lag], [anicteric sclera] Mouth: [no lip lesion], [mucus membranes moist] Cardiovascular: [S1S2 reg], [ Lungs: [Diffuse rhonchi Abdominal: [soft], [ nontender to palpation], [no guarding], [no appreciable organomegaly], PEG tube in place A total of 40 minutes of time were spent preparing this complex discharge summary. Patient was discharged on 12/26/2024. Plan - Discharge Summary New Discharge Prescriptions: No Action HYDROcodone/APAP 10-325MG [Stringer 10-325] 1 tab PEG/G-TUBE QID PRN PRN Reason: Pain Apixaban [Eliquis] 5 mg PEG/G-TUBE BID #28 tab Insulin Glargine,Hum.rec.anlog [Lantus Solostar Pen] 8 units SQ BID Potassium Chloride Oral Liquid 20 meq PO DAILY PRN PRN Reason: EDEMA/WITH LASIX Atorvastatin [Lipitor] 20 mg PEG/G-TUBE HS Ondansetron Odt [Zofran ODT] 8 mg PEG/G-TUBE Q8H PRN PRN Reason: Nausea And Vomiting Omeprazole [PriLOSEC] 20 mg PEG/G-TUBE DAILY Insulin Aspart [NovoLOG Flexpen] See Protocol SQ ACHS PRN PRN Reason: HIGH BLOOD SUGAR ALPRAZolam [Xanax] 0.5 mg PEG/G-TUBE DAILY Metoprolol Tartrate [Lopressor] 25 mg PEG/G-TUBE BID #90 tab Furosemide [Lasix] 40 mg PEG/G-TUBE DAILY PRN PRN Reason: Edema Discharge Medication List Atorvastatin [Lipitor] 20 mg PEG/G-TUBE HS 07/21/24 [History] HYDROcodone/APAP 10-325MG [Stringer 10-325] 1 tab PEG/G-TUBE QID PRN 07/21/24 [History] Ondansetron Odt [Zofran ODT] 8 mg PEG/G-TUBE Q8H PRN 10/12/24 [History] Apixaban [Eliquis] 5 mg PEG/G-TUBE BID #28 tab 10/20/24 [Rx] ALPRAZolam [Xanax] 0.5 mg PEG/G-TUBE DAILY 11/22/24 [History] Insulin Aspart [NovoLOG Flexpen] See Protocol SQ ACHS PRN 11/22/24 [History] Insulin Glargine,Hum.rec.anlog [Lantus Solostar Pen] 8 units SQ BID 11/22/24 [History] Omeprazole [PriLOSEC] 20 mg PEG/G-TUBE DAILY 11/22/24 [History] Metoprolol Tartrate [Lopressor] 25 mg PEG/G-TUBE BID #90 tab 11/25/24 [Rx] Furosemide [Lasix] 40 mg PEG/G-TUBE DAILY PRN 12/17/24 [History] Potassium Chloride Oral Liquid 20 meq PO DAILY PRN 12/17/24 [History] Follow up Appointment(s)/Referral(s): Home,[facility] [NON-STAFF] - 1 Week Boris Mcclendon DO [Primary Care Provider] - 1-2 days Discharge Disposition: HOME WITH HOSPICE
[2024-12-26 11:46] VITALS: RESP 24
--- NOTE | 2024-12-26 11:56 | P.PN ---
Subjective Progress Note Date: 12/26/24 Patient is a 74-year-old male with past medical history significant for head/neck cancer diagnosed back in April,. 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 Previously on carbo/Taxol, subsequently on Keytruda. PET scan from June, demonst rating a 2.8 x 2.2 cm parapharyngeal mass. FDG avid left upper lobe pulmonary nodule. Since then, concerns for disease progression. MRI brain from Oct, 2024 showing a left pharyngeal mass larger than previous PET scan with extension through the jugular eason to the cerebellar pontine angle. With vasogenic edema in the adjacent cerebellum with some mass effect. Currently, undergoing radiation treatments. Also, takes oral Decadron. Chest CT angiogram from Oct, 2024 remarkable for increased size and number of pulmonary nodules. Largest nodule in the left upper lung measuring 2.1 cm. Additional multiple enlarged mediastinal lymph nodes. Did have issues with swallowing and did have a PEG tube placed at an outside facility. He has had multiple hospitalizations related to related complications of his cancer and treatments. He follows with his established oncologist Dr. De Jesus. Additional past medical history including hyperlipidemia, diabetes, atrial fibrillation, heart failure. Echocardiogram from July, estimating left ventricular ejection fraction of 45 to 50%. Patient currently being evaluated on the oncology unit. He is a poor historian. Apparently, brought into the emergency department back on 12/17/2024 for nausea, vomiting, and generalized weakness. Also, family was reporting fevers at home. Concerns of sepsis. While in the ED, noted to be in atrial f ibrillation with RVR, started on Cardizem infusion for rate control. Blood pressure was marginal and the patient was fluid resuscitated with a total of 2.5 L of LR. Chest x-ray remarkable for cardiomegaly, pulmonary vascular congestion, and bibasilar airspace opacities. NT proBNP 2140. CBC with a WBC count of 3.47, hemoglobin 7.9 g/dL, platelets 91,000. CMP: Sodium 127, potassium 4.2, chloride 99, serum bicarb 22, BUN 17, creatinine 0.43, glucose 205. Lactic was elevated at 4.8 is down to 1.7. Urinalysis unremarkable for infection. Viral screen negative for influenza A/B, RSV, COVID. Urine Legionella antigen negative. Started empirically on Zosyn previously. No recorded fevers while inpatient. No observed coughing. He is on room air. Does not appear in any respiratory distress. LR infusing at 75 mL/h. Cardizem has previously been discontinued. Most recent vital signs including a temperature of 97.4 F, heart rate 88 bpm, blood pressure 99/60 mmHg, nontachypneic, SpO2 re corded at 93% on room air. The patient is seen today December 20, 2024 in follow-up on the regular medical floor. He is currently awake and alert. Sitting up in bed. He has a loose congested cough. He is maintaining good O2 saturations in the mid 90s on room air oxygen. He has been afebrile. Slightly tachycardic. Follow-up chest x-ray shows similar bibasilar patchy airspace opacities. Blood culture reveals no growth. White count 1.87. Hemoglobin 7.5. Platelets 65,000. Sodium 125. Potassium 3.8. Bicarb 23. BUN 8. Creatinine 0.26. Glucose 106. proBNP 3260. Procalcitonin was negative at 0.35. TSH 2.16. He remains anticoagulated with Eliquis. Being nourished with Jevity 1.5 bolus tube feedings of 240 mL 6 times per day. Normal saline at 50 mL/h. The patient is seen today December 21, 2024 in follow-up on the regular medical floor. He is currently resting in bed. In no acute distress. Maintaining O2 saturations in the 90s on room air oxygen. He remains on Zosyn. Blood culture revealed no growth. Sputum culture pending. He did have a temperature of 101.7 last evening. White count 3.1. Hemoglobin 9.2. Platelets 74,000. Sodium 127. Potassium 4.0. Bicarb 22. BUN 11. Creatinine 0.39. Glucose 190. He is continued on Jevity 1.5 bolus feedings. Remains on normal saline at 50 mL/h. Scopolamine patch in place. The patient is seen today December 22, 2024 in follow-up in the intensive care unit. He was placed here as a 3 S. overflow patient as he developed atrial fibrillation with rapid ventricular response, hypoxemia and thick secretions. He is currently sitting up in bed. Awake and alert in no acute distress. Maintaining O2 saturations in the 90s on 2 L/min per nasal cannula. Chest x-ray showed cardiomegaly with mild interstitial changes and mild interstitial pulmonary edema. CT scan of the abdomen and pelvis revealed no evidence of bowel obstruction. PEG tube in appropriate position. White count 1.79. Hemoglobin 7.0. Platelets 51,000. Sodium 07/13/2026. Potassium 3.4. Bicarb 27. BUN 13. Creatinine 0.34. Procalcitonin again negative at 0.24. Cortisol low at 2.9. He is currently on amiodarone drip at 1 mg/min. He is anticoagula jesus with Eliquis. He remains on Jevity tube feedings. Remains on bronchodilators. Antibiotics in the form of Zosyn. Scopolamine patch in place. The patient is seen today December 23, 2024 in follow-up in the intensive care unit. He had been moved out to [facility] yesterday but developed another episode of aspiration and was brought back into the intensive care unit. A nasogastric tube was inserted to assure gastric contents were not continuing to be aspirated. PEG tube remains in place. Abdominal x-ray revealed nonspecific bowel gas pattern without evidence of acute process. Today's chest x-ray shows ill-defined interstitial and small airspace infiltrates bilaterally. No significant change. Nasogastric tube in place. Sputum culture showing Serratia marcescens. Corynebacterium stratum group. White count 2.6. Hemoglobin 6.3. Platelets 47,000. Sodium 127. Potassium 4.0. Bicarb 23. BUN 13. Creatinine 0.29. Glucose 94. He is currently on cefepime and vancomycin. Remains on D uoNeb inhalations. Scopolamine patch in place. He is currently requiring 10 L high flow nasal cannula to maintain O2 saturations in the 90s. He is afebrile. In A-fib with heart rate in the 100s. He is currently on amiodarone at 0.5 mg/min. Continued on Lopressor. Eliquis on hold due to his anemia. Receiving 1 unit of packed red blood cells today. The patient is seen today December 24, 2024 in follow-up in the intensive care unit. He is currently sitting up in bed. Awake and alert. He is maintaining O2 saturations in the 90s on 2 L/min per nasal cannula. He has normal saline at 10 mL/h. He is receiving Jevity 1.5 at 10 mL/h via the PEG tube. He has been transition to oral amiodarone. Sputum cultures positive for Serratia marcescens. White count 3.75. Hemoglobin 7.5. Platelets 49,000. Sodium 126. Potassium 3.4. Bicarb 25. BUN 14. Creatinine 0.32. Chest x-ray revealed mild reduction in the diffuse bilateral cardiopulmonary process. He is currently afebrile. Slightly tachycardic. He remains on DuoNeb inhalations. Antibiotics in the form of cefepime. 12/25/2024, the patient is being seen for a follow-up. The patient continues to have congested cough and he continues to have shortness of breath even at rest. NG tube is in place and the patient also has a PEG tube in place. Extremely dry mouth with multiple dried scabs and thickened secretions covering the roof of the mouth there was removed at the bedside this morning. Remains on broad- spectrum antibiotics. The patient is on on IV cefepime and the sputum sample was positive for Serratia marcescens. The chest x-ray from this morning still showing borderline cardiomegaly and diffuse interstitial densities bilaterally and worsening airspace disease in the left lung base. Nodular appearance/densit y in the left suprahilar area is also seen. Very weak and debilitated and continues to have a weak cough. The white cell count at 2.2 with a heme of 7.1 and a platelet count of 46. Sodium is at 127 with a potassium level of 3.5, BUN is 9 with a creatinine of 0.3. The patient is currently on Jevity via PEG tube at 10 cc an hour. He is on oxygen 2 L/min nasal cannula. IV fluids are currently at KVO. Cardiac rhythm remains atrial fibrillation. He is on oral amiodarone for rate control at a dose of 200 mg p.o. twice a day in combination with metoprolol 50 mg p.o. twice daily. Somewhat confused. Unable to follow commands consistently. 12/26/2024, the patient is being seen for a follow-up. He is quite weak and lethargic yet arousable and is able to communicate and answer simple questions. Is able to move all 4 extremities. He continues to have a congested cough. Unable to bring up any significant sputum. Notable worsening respiratory status and the patient remains on 2 L of oxygen by nasal cannula chest x-ray shows multifocal bilateral airspace disease and the patient remains on IV cefepime. He is receiving enteral feeding via PEG tube at rate of 20 cc an hour and the NG tube was removed and the patient is also on lactated Ringer at rate of 75 cc an hour. He remains in atrial fibrillation the rate is under better control and the patient is currently on amiodarone 4 mg p.o. twice a day and metoprolol 50 mg p.o. twice a day. Hemoglobin this morning was at 6.8, and this was repeated and the level was at 7.2. His electrolytes show a sodium level of 129, potassium is at 3.7, BUN is 8 with a creatinine of 0.23. The white cell count is at 1.7 and the patient has chronic pancytopenia. 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 Objective - Vital Signs Vital signs: Vital Signs Temp 101.4 F H 12/26/24 08:00 Pulse 117 H 12/26/24 08:00 Resp 25 H 12/26/24 08:00 BP 122/68 12/26/24 08:00 Pulse Ox 97 12/26/24 08:00 FiO2 2 12/25/24 12:00 Intake & Output 12/25/24 12/26/24 12/26/24 18:59 06:59 18:59 Intake Total 1205 1330 520 Output Total 688 745 85 Balance 517 585 435 Weight 85.6 kg 82.9 kg Intake: IV 875 1000 450 0.9 Normal Saline @ KVO 50 Cefepime 2 gm In Sodium 200 100 100 Chloride 0.9% 100 ml @ 25 mls/hr IVPB Q8HR AJIT Rx# :[id number] Lactated Ringers 1,000 ml 525 900 150 @ 75 mls/hr IV .[id number] AJIT Rx#:[id number] Magnesium Sulfate-D5w Pmx 100 200 1 gm In Dextrose/Water 1 100ml.bag @ 100 mls/hr IVPB Q1H AJIT Rx#: [id number] Intake, IV Titration 100 Amount Magnesium Sulfate-D5w Pmx 100 1 gm In Dextrose/Water 1 100ml.bag @ 100 mls/hr IVPB Q1H AJIT Rx#: [id number] Tube Feeding 140 240 40 Other 90 90 30 Output: Urine 688 695 85 Oral Regurgitation 50 Other: Voiding Method Indwelling Catheter Indwelling Catheter # Bowel Movements 1 - Exam GENERAL EXAM: Alert, 74-year-old male, resting in bed, on 2 L nasal cannula, in no apparent distress. NG tube has been removed and the patient is not having any significant respiratory distress at this point. HEAD: Normocephalic and atraumatic EYES: Normal reaction of pupils, equal size. NOSE: Clear with pink turbinates. Nasogastric tube secured in place. THROAT: No erythema or exudates. Dry mucous membranes. NECK: No masses, no JVD. CHEST: No chest wall deformity. LUNGS: Equal air entry with scattered rhonchi. Loose congested cough. CVS: S1 and S2 normal with no audible murmur, irregular rhythm. No extra heart sounds. ABDOMEN: No hepatosplenomegaly, active bowel sounds, no guarding or rigidity. PEG tube noted. SPINE: No scoliosis or deformity SKIN: No rashes CENTRAL NERVOUS SYSTEM: Patient is alert, only oriented to self, will follow some simple commands, no focal deficits, tone is normal in all 4 extremities. Profound weakness in all 4 extremities along with some baseline confusion. EXTREMITIES: There is no peripheral edema, clubbing, or cyanosis. Peripheral pulses are intact. - Labs CBC & Chem 7: 12/26/24 06:54 12/26/24 05:29 Labs: Abnormal Lab Results - Last 24 Hours (Table) 12/25/24 12/25/24 12/25/24 Range/Units 05:41 11:27 18:10 WBC (4.50-10.00) 10*3/uL RBC (4.40-5.60) 10*6/uL Hgb (13.0-17.0) g/dL Hct (39.6-50.0) % MCV (80.0-97.0) fL MCH (27.0-32.0) pg Plt Count 46 L (140-440) 10*3/uL Neutrophils # 1.50 L (1.80-7.70) 10*3/uL Neutrophils # (Manual) (1.3-7.7) k/uL Lymphocytes # 0.61 L (0.90-5.00) 10*3/uL Lymphocytes # (Manual) (1.0-4.8) k/uL Monocytes # 0.08 L (0.20-1.00) 10*3/uL Eosinophils # 0.00 L (0.04-0.35) 10*3/uL Sodium (137-145) mmol/L Chloride (98-107) mmol/L BUN (9-20) mg/dL Creatinine (0.66-1.25) mg/dL Glucose (74-99) mg/dL POC Glucose (mg/dL) 178 H 143 H (70-110) mg/dL Calcium (8.4-10.2) mg/dL Magnesium (1.6-2.3) mg/dL 12/25/24 12/26/24 12/26/24 Range/Units 23:49 05:29 05:29 WBC (4.50-10.00) 10*3/uL RBC (4.40-5.60) 10*6/uL Hgb (13.0-17.0) g/dL Hct (39.6-50.0) % MCV (80.0-97.0) fL MCH (27.0-32.0) pg Plt Count (140-440) 10*3/uL Neutrophils # (1.80-7.70) 10*3/uL Neutrophils # (Manual) (1.3-7.7) k/uL Lymphocytes # (0.90-5.00) 10*3/uL Lymphocytes # (Manual) (1.0-4.8) k/uL Monocytes # (0.20-1.00) 10*3/uL Eosinophils # (0.04-0.35) 10*3/uL Sodium 129 L (137-145) mmol/L Chloride 96 L (98-107) mmol/L BUN 8 L (9-20) mg/dL Creatinine 0.23 L (0.66-1.25) mg/dL Glucose 129 H (74-99) mg/dL POC Glucose (mg/dL) 186 H (70-110) mg/dL Calcium 7.4 L (8.4-10.2) mg/dL Magnesium 1.5 L (1.6-2.3) mg/dL 12/26/24 12/26/24 12/26/24 Range/Units 05:29 05:38 06:54 WBC 1.69 L 1.75 L (4.50-10.00) 10*3/uL RBC 2.04 L 2.17 L (4.40-5.60) 10*6/uL Hgb 6.8 L* 7.2 L (13.0-17.0) g/dL Hct 19.8 L* 21.3 L (39.6-50.0) % MCV 97.1 H 98.2 H (80.0-97.0) fL MCH 33.3 H 33.2 H (27.0-32.0) pg Plt Count 42 L 39 L (140-440) 10*3/uL Neutrophils # (1.80-7.70) 10*3/uL Neutrophils # (Manual) 1.10 L (1.3-7.7) k/uL Lymphocytes # (0.90-5.00) 10*3/uL Lymphocytes # (Manual) 0.53 L (1.0-4.8) k/uL Monocytes # (0.20-1.00) 10*3/uL Eosinophils # (0.04-0.35) 10*3/uL Sodium (137-145) mmol/L Chloride (98-107) mmol/L BUN (9-20) mg/dL Creatinine (0.66-1.25) mg/dL Glucose (74-99) mg/dL POC Glucose (mg/dL) 142 H (70-110) mg/dL Calcium (8.4-10.2) mg/dL Magnesium (1.6-2.3) mg/dL Microbiology - Last 24 Hours (Table) 12/22/24 06:01 Blood Culture - Preliminary Blood Assessment and Plan Plan: Intractable nausea and vomiting with concerns for aspiration, NG tube has been removed and the patient also has a PEG tube for enteral feeding and nutritional support. No reported nausea or emesis at this point. The patient is tolerating enteral feeding for the social support and the patient is receiving PEG tube feeding. Acute hypoxic respiratory failure currently on 2 L of oxygen by nasal cannula Bilateral pneumonia secondary to Serratia marcescens, currently on IV cefepime. Chest x-ray continues to show bilateral pulmonary infiltrates and airspace disease worse in the left lung base, chest x-ray findings are essentially unchanged the patient remains on oxygen 2 L/min nasal cannula. Continues to have a congested cough. Atrial fibrillation with rapid ventricular response, rate is under better control and the patient is currently on oral amiodarone and metoprolol. Cardizem drip has been discontinued. Metastatic oropharyngeal cancer, brain MRI from Oct, 2024 showing a left pharyngeal mass larger than previous PET scan with extension through the jugular eason to the cerebellar pontine angle. With vasogenic edema in the adjacent cerebellum with some mass effect. Chest CT angiogram from Oct, 2024 remarkable for increased size and number of pulmonary nodules. Largest nodule in the left upper lung measuring 2.1 cm. Additional multiple enlarged mediastinal lymph nodes Historic events: He also had a PET scan 02/27/2024 which showed abnormal uptake in left parapharyngeal space in left neck node measured 11 mm multiple lung nodules up to 10 mm in DERICK (SUV 5), other nodes are smaller without significant uptake but larger compared to CT chest done in December 2023 and a new 5 mm LLL nodule. He was evaluated by Dr. 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 He underwent PEG tube placement. His disease is PDL-1 15-20%, NGS showed no significant mutation, MINDY, low TMB. On 04/28/2024 he started we ekly carbo/taxol and keytruda. He received 4 cycles, last dose 07/07/24. On 07/13/2024 PET scan showed some disease improvement. HCTA (10/13/2024) showed scattered pulmonary nodules largest 1 previously 8 mm now 21 mm. Additional scattered nodules increasing in size and number mediastinal lymph node p rominence compared to July 13, 2024 imaging no PE. He has been seen by cardiology because of A-fib with RVR. Patient is on Eliquis for the same. Neurology has seen pt for CT of the brain findings, possible CVA Brain MRI is reporting left parapharyngeal mass appears larger than on the PET scan in June, may have some extension into through the jugular foramen to the cerebellar pontine angle. Vasogenic edema appears to be in the adjacent cerebellum with some mild mass effect. Altered mental status, likely secondary to above Chronic dysphagia and previous PEG tube placement Pancytopenia posttransfusion 1 unit of packed RBC Hyponatremia, consider SIADH, sodium level is improved and stable Chronic systolic heart failure with reduced ejection fraction History of hyperlipidemia Diabetes mellitus, insulin-dependent Plan: Grossly extremely poor based on above-mentioned comorbidities. Continue enteral feeding via PEG tube Continue Humalog insulin for blood sugar control Continue oral amiodarone and oral metoprolol for rate control The patient was placed on lactated Ringer at 75 cc an hour Aspiration precautions Chest x-ray is unchanged His current CODE STATUS is DNR/DNI. hOSPICE CARE TODAY
[2024-12-26 12:16] VITALS: BP 92/53
[2024-12-26 13:04] VITALS: PULSE 94
--- NOTE | 2024-12-26 16:25 | P.PN ---
Subjective Progress Note Date: 12/25/24 Principal diagnosis: Reason for follow-up is fever/pneumonia Patient is a 74-year-old male with a past medical history significant for Atrial Fibrillation, Cancer, Diabetes Mellitus, Hyperlipidemia, Myocardial Infarction (SC) he did have cancer of the cervical spine C1-C2 for the patient has received chemo completed in June 2024 and has received radiation therapy admitted to hospital with weakness noticed to have a fever prompting this consultation. On today's evaluation that is 12/25/2024, patient did have low-grade fever 100.1 F this morning patient is currently breathing comfortable on 2 L of oxygen, patient denies having any chest pain and no worsening cough no abdominal pain no diarrhea. Patient white count is 2.21 creatinine 0.30 Objective - Vital Signs Vital signs: Vital Signs Temp 98.9 F 12/25/24 12:00 Pulse 112 H 12/25/24 14:00 Resp 28 H 12/25/24 14:00 BP 107/82 12/25/24 14:00 Pulse Ox 99 12/25/24 14:00 FiO2 2 12/25/24 12:00 Intake & Output 12/24/24 12/25/24 12/25/24 18:59 06:59 18:59 Intake Total 480 440 900 Output Total 533 745 538 Balance -53 -305 362 Weight 85.6 kg 85.6 kg Intake: IV 330 210 650 0.9 Normal Saline @ KVO 130 110 50 Cefepime 2 gm In Sodium 200 100 200 Chloride 0.9% 100 ml @ 25 mls/hr IVPB Q8HR AJIT Rx# :[id number] Lactated Ringers 1,000 ml 300 @ 75 mls/hr IV .[id number] AJIT Rx#:[id number] Magnesium Sulfate-D5w Pmx 100 1 gm In Dextrose/Water 1 100ml.bag @ 100 mls/hr IVPB Q1H AJIT Rx#: [id number] Intake, IV Titration 100 Amount Magnesium Sulfate-D5w Pmx 100 1 gm In Dextrose/Water 1 100ml.bag @ 100 mls/hr IVPB Q1H AJIT Rx#: [id number] Tube Feeding 90 110 90 Other 60 120 60 Output: Urine 533 745 538 Other: Voiding Method Indwelling Catheter Indwelling Catheter # Bowel Movements 1 1 - Exam GENERAL DESCRIPTION: An elderly male lying in bed in no distress RESPIRATORY SYSTEM: Unlabored breathing , decreased breath sounds at bases HEART: S1 S2 regular rate and rhythm , ABDOMEN: Soft , no tenderness EXTREMITIES: No edema feet - Labs CBC & Chem 7: 12/26/24 06:54 12/26/24 05:29 Labs: Abnormal Lab Results - Last 24 Hours (Table) 12/24/24 12/24/24 12/24/24 Range/Units 18:09 18:35 23:04 WBC (4.50-10.00) 10*3/uL RBC (4.40-5.60) 10*6/uL Hgb (13.0-17.0) g/dL Hct (39.6-50.0) % MCH (27.0-32.0) pg Plt Count (140-440) 10*3/uL Neutrophils # (1.80-7.70) 10*3/uL Lymphocytes # (0.90-5.00) 10*3/uL Monocytes # (0.20-1.00) 10*3/uL Eosinophils # (0.04-0.35) 10*3/uL Sodium (137-145) mmol/L Potassium 5.2 H (3.5-5.1) mmol/L Chloride (98-107) mmol/L Creatinine (0.66-1.25) mg/dL Glucose (74-99) mg/dL POC Glucose (mg/dL) 146 H 154 H (70-110) mg/dL Calcium (8.4-10.2) mg/dL 12/25/24 12/25/24 12/25/24 Range/Units 05:41 05:41 05:46 WBC 2.21 L (4.50-10.00) 10*3/uL RBC 2.09 L (4.40-5.60) 10*6/uL Hgb 7.1 L (13.0-17.0) g/dL Hct 20.2 L (39.6-50.0) % MCH 34.0 H (27.0-32.0) pg Plt Count 46 L (140-440) 10*3/uL Neutrophils # 1.50 L (1.80-7.70) 10*3/uL Lymphocytes # 0.61 L (0.90-5.00) 10*3/uL Monocytes # 0.08 L (0.20-1.00) 10*3/uL Eosinophils # 0.00 L (0.04-0.35) 10*3/uL Sodium 127 L (137-145) mmol/L Potassium (3.5-5.1) mmol/L Chloride 94 L (98-107) mmol/L Creatinine 0.30 L (0.66-1.25) mg/dL Glucose 128 H (74-99) mg/dL POC Glucose (mg/dL) 147 H (70-110) mg/dL Calcium 7.2 L (8.4-10.2) mg/dL 12/25/24 Range/Units 11:27 WBC (4.50-10.00) 10*3/uL RBC (4.40-5.60) 10*6/uL Hgb (13.0-17.0) g/dL Hct (39.6-50.0) % MCH (27.0-32.0) pg Plt Count (140-440) 10*3/uL Neutrophils # (1.80-7.70) 10*3/uL Lymphocytes # (0.90-5.00) 10*3/uL Monocytes # (0.20-1.00) 10*3/uL Eosinophils # (0.04-0.35) 10*3/uL Sodium (137-145) mmol/L Potassium (3.5-5.1) mmol/L Chloride (98-107) mmol/L Creatinine (0.66-1.25) mg/dL Glucose (74-99) mg/dL POC Glucose (mg/dL) 178 H (70-110) mg/dL Calcium (8.4-10.2) mg/dL Microbiology - Last 24 Hours (Table) 12/22/24 06:01 Blood Culture - Preliminary Blood 12/21/24 10:50 Blood Culture - Preliminary Blood Assessment and Plan (1) Pneumonia Status: Acute Priority: High Code(s): J18.9 - PNEUMONIA, UNSPECIFIED ORGA RUST SNOMED Code(s): 034941669 (2) Sepsis Status: Acute Priority: High Code(s): A41.9 - SEPSIS, UNSPECIFIED ORGANISM SNOMED Code(s): 57654438 Plan: 1patient with a fever in this patient who did have a history of C1-C2 cervical spine cancer status post chemoradiation therapy did have difficulty swallowing requiring PEG tube placement admitted to the hospital 4 days ago predominantly with nausea vomiting and some abdominal discomfort and there is concern for possible aspiration pneumonitis with the lack etiology however abdominal source not entirely excluded 2-sputum is growing corynebacterium stratum as well as Serratia that is sensitive to cefepime 3-patient did have CT of abdominal pelvis with contrast did not show any intra- abdominal pathology there was concern for bibasilar opacities/pneumonia 4-patient did have some improvement respiratory status being treated cefepime and vancomycin and monitor clinical course closely Dictation was produced using [employer] dictation software. please excuse any gramma tical, word or spelling errors. Time with Patient: Less than 30
--- NOTE | 2024-12-26 16:26 | P.PN ---
Subjective Progress Note Date: 12/26/24 Principal diagnosis: Reason for follow-up is fever/pneumonia Patient is a 74-year-old male with a past medical history significant for Atrial Fibrillation, Cancer, Diabetes Mellitus, Hyperlipidemia, Myocardial Infarction ([place]) he did have cancer of the cervical spine C1-C2 for the patient has received chemo completed in June 2024 and has received radiation therapy admitted to hospital with weakness noticed to have a fever prompting this consultation. On today's evaluation that is 12/26/2024, Patient did spike a fever of 101.4 F this morning, the patient is on 2 L nasal oxygen breathing comfortably denies any chest pain no worsening cough or sputum production no abdominal pain or diarrhea. The patient white count is 1.75 creatinine 0.23 blood culture negative Objective - Vital Signs Vital signs: Vital Signs Temp 101.4 F H 12/26/24 08:00 Pulse 94 12/26/24 13:00 Resp 24 12/26/24 11:00 BP 92/53 12/26/24 12:00 Pulse Ox 98 12/26/24 13:00 FiO2 2 12/25/24 12:00 Intake & Output 12/25/24 12/26/24 12/26/24 18:59 06:59 18:59 Intake Total 1205 1330 955 Output Total 688 745 340 Balance 517 585 615 Weight 85.6 kg 82.9 kg 82.9 kg Intake: IV 875 1000 825 0.9 Normal Saline @ KVO 50 Cefepime 2 gm In Sodium 200 100 100 Chloride 0.9% 100 ml @ 25 mls/hr IVPB Q8HR AJIT Rx# :[id number] Lactated Ringers 1,000 ml 525 900 525 @ 75 mls/hr IV .[id number] AJIT Rx#:[id number] Magnesium Sulfate-D5w Pmx 100 200 1 gm In Dextrose/Water 1 100ml.bag @ 100 mls/hr IVPB Q1H AJIT Rx#: [id number] Intake, IV Titration 100 Amount Magnesium Sulfate-D5w Pmx 100 1 gm In Dextrose/Water 1 100ml.bag @ 100 mls/hr IVPB Q1H AJIT Rx#: [id number] Tube Feeding 140 240 100 Other 90 90 30 Output: Urine 688 695 340 Oral Regurgitation 50 Other: Voiding Method Indwelling Catheter Indwelling Catheter Indwelling Catheter # Bowel Movements 1 - Exam GENERAL DESCRIPTION: An elderly male lying in bed in no distress RESPIRATORY SYSTEM: Unlabored breathing , decreased breath sounds at bases HEART: S1 S2 regular rate and rhythm , ABDOMEN: Soft , no tenderness EXTREMITIES: No edema feet - Labs CBC & Chem 7: 12/26/24 06:54 12/26/24 05:29 Labs: Abnormal Lab Results - Last 24 Hours (Table) 12/25/24 12/25/24 12/26/24 Range/Units 18:10 23:49 05:29 WBC (4.50-10.00) 10*3/uL RBC (4.40-5.60) 10*6/uL Hgb (13.0-17.0) g/dL Hct (39.6-50.0) % MCV (80.0-97.0) fL MCH (27.0-32.0) pg Plt Count (140-440) 10*3/uL Neutrophils # (Manual) (1.3-7.7) k/uL Lymphocytes # (Manual) (1.0-4.8) k/uL Sodium (137-145) mmol/L Chloride (98-107) mmol/L BUN (9-20) mg/dL Creatinine (0.66-1.25) mg/dL Glucose (74-99) mg/dL POC Glucose (mg/dL) 143 H 186 H (70-110) mg/dL Calcium (8.4-10.2) mg/dL Magnesium 1.5 L (1.6-2.3) mg/dL 12/26/24 12/26/24 12/26/24 Range/Units 05:29 05:29 05:38 WBC 1.69 L (4.50-10.00) 10*3/uL RBC 2.04 L (4.40-5.60) 10*6/uL Hgb 6.8 L* (13.0-17.0) g/dL Hct 19.8 L* (39.6-50.0) % MCV 97.1 H (80.0-97.0) fL MCH 33.3 H (27.0-32.0) pg Plt Count 42 L (140-440) 10*3/uL Neutrophils # (Manual) (1.3-7.7) k/uL Lymphocytes # (Manual) (1.0-4.8) k/uL Sodium 129 L (137-145) mmol/L Chloride 96 L (98-107) mmol/L BUN 8 L (9-20) mg/dL Creatinine 0.23 L (0.66-1.25) mg/dL Glucose 129 H (74-99) mg/dL POC Glucose (mg/dL) 142 H (70-110) mg/dL Calcium 7.4 L (8.4-10.2) mg/dL Magnesium (1.6-2.3) mg/dL 12/26/24 12/26/24 Range/Units 06:54 11:06 WBC 1.75 L (4.50-10.00) 10*3/uL RBC 2.17 L (4.40-5.60) 10*6/uL Hgb 7.2 L (13.0-17.0) g/dL Hct 21.3 L (39.6-50.0) % MCV 98.2 H (80.0-97.0) fL MCH 33.2 H (27.0-32.0) pg Plt Count 39 L (140-440) 10*3/uL Neutrophils # (Manual) 1.10 L (1.3-7.7) k/uL Lymphocytes # (Manual) 0.53 L (1.0-4.8) k/uL Sodium (137-145) mmol/L Chloride (98-107) mmol/L BUN (9-20) mg/dL Creatinine (0.66-1.25) mg/dL Glucose (74-99) mg/dL POC Glucose (mg/dL) 203 H (70-110) mg/dL Calcium (8.4-10.2) mg/dL Magnesium (1.6-2.3) mg/dL Microbiology - Last 24 Hours (Table) 12/22/24 06:01 Blood Culture - Preliminary Blood Assessment and Plan (1) Pneumonia Status: Acute Priority: High Code(s): J18.9 - PNEUMONIA, UNSPECIFIED ORGANISM SNOMED Code(s): 754176078 (2) Sepsis Status: Acute Priority: High Code(s): A41.9 - SEPSIS, UNSPECIFIED ORGANISM SNOMED Code(s): 50851578 Plan: 1patient with a fever in this patient who did have a history of C1-C2 cervical spine cancer status post chemoradiation therapy did have difficulty swallowing requiring PEG tube placement admitted to the hospital 4 days ago predominantly with nausea vomiting and some abdominal discomfort and there is concern for possible aspiration pneumonitis with the lack etiology however abdominal source not entirely excluded 2-sputum is growing corynebacterium stratum as well as [place] that is sensitive to cefepime 3-patient did have CT of abdominal pelvis with contrast did not show any intra- abdominal pathology there was concern for bibasilar opacities/pneumonia 4-patient going hospice because of his cancer as reported by the nursing staff marisela james we will hold on adding any further workup for his new fever and antibiotics can be safely discontinued Dictation was produced using [employer] dictation software. please excuse any grammatical, word or spelling errors. Time with Patient: Less than 30
== END 2024-12-26 13:21 | disposition hospice, home (50) | DRG 871 ==
LOC: EC 14:34 → 3SCARD 17:52 → 5NMEDONC 12-18 18:06 → 2SICU 12-22 05:47 → 3SCARD 12-22 14:06 → 2SICU 12-22 18:15
PROVIDERS: ADMIT Student in an Organized Health Care Education/Training Program; ATTEND Student in an Organized Health Care Education/Training Program
PROC: 3E0G36Z Introduction of Nutritional Substance into Upper GI, Percutaneous Approach (ICD-10-PCS; 2024-12-17)
PROC: 30233N1 Transfusion of Nonautologous Red Blood Cells into Peripheral Vein, Percutaneous Approach (ICD-10-PCS; principal; 2024-12-23)
DX: A41.9 Sepsis, unspecified organism (principal); D61.810 Antineoplastic chemotherapy induced pancytopenia; G93.41 Metabolic encephalopathy; G93.6 Cerebral edema; J15.69 Pneumonia due to other Gram-negative bacteria; J69.0 Pneumonitis due to inhalation of food and vomit; J96.01 Acute respiratory failure with hypoxia; E22.2 Syndrome of inappropriate secretion of antidiuretic hormone; C79.31 Secondary malignant neoplasm of brain; C10.9 Malignant neoplasm of oropharynx, unspecified; E11.649 Type 2 diabetes mellitus with hypoglycemia without coma; I11.0 Hypertensive heart disease with heart failure; D53.9 Nutritional anemia, unspecified; I48.92 Unspecified atrial flutter; I48.19 Other persistent atrial fibrillation; I50.22 Chronic systolic (congestive) heart failure; E87.20 Acidosis, unspecified; E11.65 Type 2 diabetes mellitus with hyperglycemia; Z79.4 Long term (current) use of insulin; Z93.1 Gastrostomy status; R65.20 Severe sepsis without septic shock; E86.0 Dehydration; T45.1X5A Adverse effect of antineoplastic and immunosuppressive drugs, initial encounter; E78.00 Pure hypercholesterolemia, unspecified; E83.42 Hypomagnesemia; E86.1 Hypovolemia; I25.2 Old myocardial infarction; I25.10 Atherosclerotic heart disease of native coronary artery without angina pectoris; R13.10 Dysphagia, unspecified; E80.7 Disorder of bilirubin metabolism, unspecified; R54 Age-related physical debility; Z51.5 Encounter for palliative care; Z66 Do not resuscitate; Z79.01 Long term (current) use of anticoagulants; Z79.899 Other long term (current) drug therapy; Z86.73 Personal history of transient ischemic attack (TIA), and cerebral infarction without residual deficits; Z92.21 Personal history of antineoplastic chemotherapy; Z95.5 Presence of coronary angioplasty implant and graft
CPT/HCPCS: 36415; 71045; 71046; 74018; 74177; 77386; 80048; 80053; 80202; 81003; 82150; 82533; 82565; 82607; 82728; 82746; 83010; 83036; 83540; 83550; 83605; 83615; 83690; 83735; 83880; 83930; 83935; 84132; 84145; 84295; 84300; 84443; 85025; 85027; 85045; 85384; 85610; 85730; 86140; 86850; 86900; 86901; 86920; 87040; 87070; 87077; 87186; 87205; 87449; 87636; 93005; 94640; 94760; 96361; 96365; 96366; 96368; 96375; 99291